=== PATIENT | male | born 1980 | race Caucasian/White ===

== ENCOUNTER → 2023-07-05 | Outpatient (CLI) | payer OTHER ==
--- NOTE | 2023-07-05 15:45 | CT ---
EXAMINATION: CT ABDOMEN AND PELVIS WITH IV CONTRAST DATE OF EXAMINATION: 07/05/2023. COMPARISON: None available. INDICATION: Abdominal pain. PROCEDURE: Axial CT of the abdomen and pelvis was performed with contrast and sagittal and coronal reformatted images were performed. CT dose lowering techniques were used, to include: automated expos ure control, adjustment for patient size, and/or use of iterative reconstruction. 100 mL of Isovue-30 0 was given intravenously. FINDINGS: LOWER CHEST : There are small bilateral pleural effusions, left greater than right. The lung bases o therwise appear clear. There is no pericardial effusion. Mild cardiomegaly. ABDOMEN: Liver and Biliary system: There is diffuse decreased attenuation of the liver which is compatible fa tty liver infiltration. Liver is enlarged measuring 19.1 cm in craniocaudal dimension. No focal liver lesions are otherwise seen. There is a small amount of ascites also noted around the liver. Adrenal glands: Normal. Kidneys and ureters: Normal. Spleen: Normal. Pancreas: There is scattered pancreatic parenchymal calcifications. There is mild to moderate fluid and inflammatory changes seen surrounding the pancreas as well with a more focal fluid collection chloe und the tail of the pancreas and fundal region of the stomach that measures approximately 8.3 x 4.3 c m in diameter. This may represent a pseudocyst. There is an additional cystic lesion within the head of the pancreas which is also favored to represent a pseudocyst measuring up to 2.7 cm in diameter. Gallbladder: Normal. Lymph nodes, Peritoneum and mesentery: There is no mesenteric or retroperitoneal lymphadenopathy. Gastrointestinal tract: There are no dilated loops of bowel or free intraperitoneal air. There is no evidence of appendicitis. Aorta/IVC: No aortic aneurysm. IVC normal. Abdominal wall: Normal. PELVIS: Fluid: There is a small amount of pelvic ascites. Lymph Nodes: There is no pelvic or inguinal lymphadenopathy.. Urinary bladder: Normal. BONES: There are no osseous destructive lesions.. ADDITIONAL SIGNIFICANT FINDINGS: None. IMPRESSION: 1. Acute on chronic pancreatitis with pseudocyst formation. A follow-up in 3 months is recommended. 2. Small amount of abdominal and pelvic ascites. 3. Hepatomegaly with hepatic steatosis. 4. Small bilateral pleural effusions.
== END | disposition home or self-care (01) ==
LOC: RADCTMAIN 13:15
PROVIDERS: ATTEND Internal Medicine Gastroenterology
DX: K86.1 Other chronic pancreatitis (principal); K76.0 Fatty (change of) liver, not elsewhere classified; R16.0 Hepatomegaly, not elsewhere classified; K86.3 Pseudocyst of pancreas; K85.90 Acute pancreatitis without necrosis or infection, unspecified; J90 Pleural effusion, not elsewhere classified; R18.8 Other ascites
CPT/HCPCS: 74177; Q9967

== ENCOUNTER → 2023-08-02 | Outpatient (CLI) | payer OTHER ==
[2023-08-02 09:43] VITALS: BP 123/86; PULSE 95; RESP 16
--- NOTE | 2023-08-02 13:41 | P.PAINPG ---
PQRS Measure Charge Sheet Comment: HISTORY OF PRESENT ILLNESS: A 43 yr old male as a referral from Dr Sunny Gonzáles presents today w severe and chronic abd pain secondary to chronic pancreatitis for evaluation. Pt states pain level is provoked at 8 /10 in intensity, constant, localized in the LUQ, predominantly axial, achy in character w occasional shooting pain towards the back. Pain is provoked by meals, alcohol. Pain is alleviated by injections, medications ([place]) and bowel rest. PMH: OA, Opioid Dependence, Pancreatitis, GERD PSH: Denies SH: 25 pack/ yr tobacco use, Hx of 6 cans of beers daily, Cannabis use FH: Aunt- [place]. Bro- CHF. All: See list Meds: See list REVIEW OF ORGAN SYSTEMS: CONSTITUTIONAL: No fevers or chills. No recent weight loss. NEUROLOGICAL: + numbness and tingling along the distal extremities. No seizure disorders or headaches. MUSCULOSKELETAL: + pain PSYCHIATRIC: Denies current depression or suicidal thoughts. Physical Examinations : Constitutional : Cooperative , not in acute distress . +LUQ TTP Neurologic : Cranial nerve II to XII intact. No focal neurological deficits. Psychiatric : alert & oriented x 3. Matching mood & appropriate affect. Judgment & insight intact. Musculoskeletal : Cervical Spine Motor strength in the deltoid and biceps: Normal right side. Normal Left side Motor strength biceps and the wrist extensors: Normal right side . Normal left side Motor strength in the triceps muscle: Normal right side. Normal left side Deep tendon reflexes: Normal at the biceps. Normal at Brachioradialis. Normal at triceps Vertebral body tenderness to deep palpation over Cervical facet loading test: positive bilaterally Spurling test: positive bilaterally Neck distraction test: positive bilaterally Ivan sign: positive bilaterally Lumbar spine Motor strength lower extremities ,thigh and legs 5/5 Right side , 5/5 Left side Deep tendon reflexes : Normal Knee Jerk. Normal Ankle Jerk Vertebral body tenderness over Small Test positive Lumbar facet Loading Test: positive Right / positive Left Range of motion of the lumbar spine Flexion 30 degrees, extension 10 degrees Straight Leg Raise test: Left/ Right positive at degrees Gabrielle test: positive right / positive left. Severe tenderness over the Sacroiliac joint on the Right / Left sides Gaenslen test: positive bilaterally Seated flexion test: positive bilaterally. Sacral spine : Severe tenderness over the Sacroiliac joint: right side / left side Range of motion: Flexion of the lumbar spine <60 degrees Range of motion: Extension of the lumbar spine <20 degrees Gaenslen's Test positive Gabrielle test: positive right side / left side Thigh Thrust Test Sacral Thrust Test Imaging: CT Abdomen reviewed Assessment/ Plan : Chronic Pancreatitis Recommendation of Celiac Plexus Nerve Block #1. May need a series of injections for optimal pain relief. Risks, benefits of procedure discussed and patient verbalized understanding. Admits to anti- coagulant use or medical history of diabetes. Protocol for discontinuation/ continuation of medications kar procedure discussed. Minimal anesthesia provided, if clinically indicated, consisting of Versed and Fentanyl. All questions answered. I have spent greater than 30 minutes on patient care today. Dr Rushing was available by phone for the evaluation of this patient. The time was used to review the medical records including relevant urine studies and Prescription history (MAPs), review of the available imaging, evaluation and examination of the patient, coordination of care with the medical staff and if applicable re [facility] physicians, as well as creation of the medical record Home Medications: Ambulatory Orders Omeprazole 40 PO DAILY 08/02/23 Controlled Substance Measures - Controlled Substance Measures Is patient prescribed a controlled substance at discharge?: No
== END ==
LOC: PNWHC3 09:17
PROVIDERS: ATTEND Specialist
DX: K85.90 Acute pancreatitis without necrosis or infection, unspecified (principal)
CPT/HCPCS: 99211

== ENCOUNTER 2024-01-09 13:16 | Emergency (ER) | payer OTHER ==
--- NOTE | 2024-01-09 13:52 | ED ---
General Adult HPI - General Chief complaint: Abdominal Pain Stated complaint: Abd pain Time Seen by Provider: 01/09/24 13:29 Source: patient Mode of arrival: wheelchair Limitations: no limitations - History of Present Illness Initial comments: Dictation was produced using [employer] dictation software. please excuse any grammatical, word or spelling errors. Chief Complaint: 43-year-old male with abdominal pain History of Present Illness: Patient is a 43-year-old alcoholic male he tried to check in at [place] today for treatment of alcoholism. Patient states he drinks 12 beers daily. Has had withdrawals in the past. Patient complains of abdominal pain. States that he tried to check in and they told him to come to the emergency department to evaluate for pancreatitis. Patient has chronic abdominal pain. Denies any fever. No nausea or vomiting. The ROS documented in this emergency department record has been reviewed and confirmed by me. Those systems with pertinent positive or negative responses have been documented in the HPI. All other systems are other negative and/or noncontributory. - Related Data Home Medications Medication Instructions Recorded Confirmed Omeprazole 40 mg PO DAILY 08/02/23 01/09/24 Pregabalin [Lyrica] 75 mg PO TID 08/10/23 01/09/24 Allergies Allergy/AdvReac Type Severity Reaction Status Date / Time No Known Allergies Allergy Verified 01/09/24 14:31 Review of Systems ROS Statement: Those systems with pertinent positive or pertinent negative responses have been documented in the HPI. ROS Other: All systems not noted in ROS Statement are negative. Past Medical History Past Medical History: CVA/TIA, GERD/Reflux, Hearing Disorder / Deafness, Hypertension, Musculoskeletal Disorder Additional Past Medical History / Comment(s): TIA - discharged([facility]) 2 days ago had massive headache, confusion, was hard to get words out, resolved now. States needs MRI of brain. "High heart rate recently from the pain". Hiatal hernia. Chronic pancreatitis/pain. 4 slipped discs in back. Sore muscles. Mild hearing loss. History of Any Multi-Drug Resistant Organisms: None Reported Additional Past Surgical History / Comment(s): "Pseudocyst removed from stomach". Past Anesthesia/Blood Transfusion Reactions: No Reported Reaction Past Psychological History: No Psychological Hx Reported Smoking Status: Current every day smoker Past Alcohol Use History: Abuse Past Drug Use History: Marijuana - Past Family History Father Family Medical History: Cancer Additional Family Medical History / Comment(s): Colon cancer. General Exam - General Exam Comments Initial Comments: PHYSICAL EXAM: General Impression: Alert and oriented x3, not in acute distress HEENT: Normocephalic atraumatic, extra-ocular movements intact, pupils equal and reactive to light bilaterally, mucous membranes moist. Cardiovascular: Heart regular rate and rhythm Chest: Able to complete full sentences, no retractions, no tachypnea Abdomen: abdomen soft, epigastric palpatory abdominal pain, non-distended, no organomegaly Musculoskeletal: Pulses present and equal in all extremities, no peripheral edema Motor: no focal deficits noted Neurological: CN II-XII grossly intact, no focal motor or sensory deficits noted Skin: Intact with no visualized rashes Psych: Normal affect and mood Limitations: no limitations Course Vital Signs 01/09/24 13:24 Temperature 98.2 F Pulse Rate 115 H Respiratory 18 Rate Blood Pressure 131/94 O2 Sat by Pulse 99 Oximetry Medical Decision Making - Medical Decision Making Was pt. sent in by a medical professional or institution (, PA, [employer], urgent care, hospital, or prison...) When possible be specific @ -No Did you speak to anyone other than the patient for history (EMS, parent, family, police, friend...)? What history was obtained from this source @ -No Did you review nursing and triage notes (agree or disagree)? Why? @ -I reviewed and agree with nursing and triage notes Were old charts reviewed (outside hosp., previous admission, EMS record, old EKG, old radiological studies, urgent care reports/EKG's, prison records)? Report findings @ -No old charts were reviewed Differential Diagnosis (chest pain, altered mental status, abdominal pain women, abdominal pain men, vaginal bleeding, musculoskeletal, weakness, fever, dyspnea, syncope, headache, dizziness, GI bleed, back pain, seizure, CVA, palpatations, mental health)? @ -Differential Abdominal Pain Men: Appendicitis, cholecystitis, diverticulosis, ischemic bowel, pancreatitis, hepatitis, UTI, gastroenteritis, AAA, incarcerated hernia, bowel obstruction, constipation, inflammatory bowel, hepatitis, peptic ulcer disease, splenic infarction, perforated viscus, testicular torsion, this is not meant to be an all-inclusive list EKG interpreted by me (3pts min.). @ -None done X-rays interpreted by me (1pt min.). @ -None done CT interpreted by me (1pt min.). @ -None done U/S interpreted by me (1pt. min.). @ -None done What testing was considered but not performed or refused? (CT, X-rays, U/S, labs)? Why? @ -None What meds were considered but not given or refused? Why? @ -None Was smoking cessation discussed for >3mins.? @ -No Were there social determinants of health that impacted care today? How? (Homelessness, low income, unemployed, alcoholism, drug addiction, transportation, low edu. Level, literacy, decrease access to med. care, fdc, rehab)? @ -No Was there de-escalation of care discussed even if they declined (Discuss DNR or withdrawal of care, Hospice)? DNR status @ -No What co-morbidities impacted this encounter? (DM, HTN, Smoking, COPD, CAD, Cancer, CVA, ARF, Chemo, Hep., AIDS, mental health diagnosis, sleep apnea, morbid obesity)? @ -Alcoholism, chronic pancreatitis Was patient admitted / discharged? Hospital course, mention meds given and route, prescriptions, significant lab abnormalities, going to OR and other pertinent info. @ -43-year-old male presents emergency department for abdominal pain. Patient has history of chronic pancreatitis. Patient has mild leukocytosis 17.3. Metabolic panel shows sodium 127 likely secondary to beer potomania. Rest of labs within acceptable limits. Serum alcohol is negative. Patient given Toradol and Ativan for withdrawal symptoms. Patient states that he feels significantly improved. Offered hospital admission for inpatient treatment of alcohol withdrawal symptoms. Patient denies severe withdrawal symptoms that require hospital admission or ICU admission. States that he would prefer to be discharged back to [facility]. Repeat abdominal exam at 2:42 PM shows no acute findings. He is resting comfortably no acute distress. Patient feels that the Ativan really helped with his withdrawal symptoms. Did you discuss the management of the patient with other professionals (professionals i.e. , PA, [employer], lab, RT, psych nurse, social services analyst, internist medical doctor md, teacher, commanding officer traffic division, field case manager)? Give summary @ -No Was critical care preformed (if so, how long)? @ -No Undiagnosed new problem with uncertain prognosis? @ -No Drug Therapy requiring intensive monitoring for toxicity (Heparin, Nitro, Insulin, Cardizem)? @ -No Were any procedures done? @ -No Diagnosis/symptom? Acute, or Chronic, or Acute on Chronic? Uncomplicated (without systemic symptoms) or Complicated (systemic symptoms)? @ -Abdominal pain, hyponatremia Side effects of treatment? @ -No Exacerbation, Progression, or Severe Exacerbation? @ -No Poses a threat to life or bodily function? How? (Chest pain, [place], [place], pneumonia, PE, COPD, DKA, ARF, appy, cholecystitis, CVA, Diverticulitis, Homicidal, Suicidal, threat to staff... and all critical care pts) @ -No - Lab Data Result diagrams: 01/09/24 14:11 01/09/24 14:11 Lab Results 01/09/24 01/09/24 Range/Units 14:11 14:11 WBC 17.3 H (3.8-10.6) k/uL RBC 4.07 L (4.30-5.90) m/uL Hgb 12.4 L (13.0-17.5) gm/dL Hct 39.7 (39.0-53.0) % MCV 97.5 (80.0-100.0) fL MCH 30.5 (25.0-35.0) pg MCHC 31.3 (31.0-37.0) g/dL RDW 16.1 H (11.5-15.5) % Plt Count 581 H (150-450) k/uL MPV 8.0 Neutrophils % 79 % Lymphocytes % 12 % Monocytes % 7 % Eosinophils % 2 % Basophils % 0 % Neutrophils # 13.6 H (1.3-7.7) k/uL Lymphocytes # 2.0 (1.0-4.8) k/uL Monocytes # 1.2 H (0-1.0) k/uL Eosinophils # 0.3 (0-0.7) k/uL Basophils # 0.0 (0-0.2) k/uL Anisocytosis Slight Macrocytosis Slight Sodium 127 L (137-145) mmol/L Potassium 3.5 (3.5-5.1) mmol/L Chloride 94 L (98-107) mmol/L Carbon Dioxide 26 (22-30) mmol/L Anion Gap 7 mmol/L BUN <2 L (9-20) mg/dL Creatinine 0.37 L (0.66-1.25) mg/dL Est GFR (CKD-EPI)AfAm >90 (>60 ml/min/1.73 sqM) Est GFR (CKD-EPI)NonAf >90 (>60 ml/min/1.73 sqM) Glucose 90 (74-99) mg/dL Calcium 6.9 L (8.4-10.2) mg/dL Total Bilirubin 0.5 (0.2-1.3) mg/dL AST 46 (17-59) U/L ALT 27 (4-49) U/L Alkaline Phosphatase 206 H (38-126) U/L Total Protein 6.0 L (6.3-8.2) g/dL Albumin 2.9 L (3.5-5.0) g/dL Lipase 520 H (23-300) U/L Serum Alcohol <10 mg/dL Disposition Clinical Impression: Abdominal pain Disposition: HOME SELF-CARE Condition: Good Instructions (If sedation given, give patient instructions): Abdominal Pain (ED) Is patient prescribed a controlled substance at d/c from ED?: No Referrals: Sunny Gonzáles MD [Primary Care Provider] - 1-2 days Time of Disposition: 14:44
[2024-01-09] MEDS: LORazepam 2 MG/ML INJ IV STA (14:06)
[2024-01-09] MEDS: KETOROLAC 15 MG/ML 1 ML VIAL IVP STA (14:06)
[2024-01-09 14:19] LABS: Anisocytosis Slight; Basophils % (A) 0 %; Eosinophils # (A) 0.3 k/uL (0-0.7); Eosinophils % (A) 2 %; HCT 39.7 % (39.0-53.0); HGB 12.4 gm/dL (13.0-17.5); Lymphocytes % (A) 12 %; MCH 30.5 pg (25.0-35.0); MCHC 31.3 g/dL (31.0-37.0); MCV 97.5 fL (80.0-100.0); Macrocytosis Slight; Monocytes # (A) 1.2 k/uL (0-1.0); Monocytes % (A) 7 %; Neutrophils # (A) 13.6 k/uL (1.3-7.7); Neutrophils % (A) 79 %; Platelet Count 581 k/uL (150-450); RBC 4.07 m/uL (4.30-5.90); RDW 16.1 % (11.5-15.5); WBC 17.3 k/uL (3.8-10.6)
[2024-01-09 14:35] LABS: ALT 27 U/L (4-49); AST 46 U/L (17-59); African American GFR (CKD) >90 (>60 ml/min/1.73 sqM); Albumin 2.9 g/dL (3.5-5.0); Alcohol <10 mg/dL; Alkaline Phosphatase 206 U/L (38-126); Anion Gap 7 mmol/L; Blood Urea Nitrogen <2 mg/dL (9-20); Calcium 6.9 mg/dL (8.4-10.2); Carbon Dioxide 26 mmol/L (22-30); Chloride 94 mmol/L (98-107); Glucose 90 mg/dL (74-99); Lipase 520 U/L (23-300); Non-African American GFR(CKD) >90 (>60 ml/min/1.73 sqM); Potassium 3.5 mmol/L (3.5-5.1); Sodium 127 mmol/L (137-145); Total Bilirubin 0.5 mg/dL (0.2-1.3)
[2024-01-09] MEDS: SODIUM CHLORIDE 0.9% 1,000 ML IV STA (15:07)
[2024-01-09 16:05] VITALS: BP 148/92; PULSE 95; RESP 16; TEMP 98.1
== END 2024-01-09 16:25 | disposition home or self-care (01) ==
LOC: EC 13:16
DX: R10.9 Unspecified abdominal pain (principal); F17.200 Nicotine dependence, unspecified, uncomplicated; F10.20 Alcohol dependence, uncomplicated; E87.1 Hypo-osmolality and hyponatremia; Z87.19 Personal history of other diseases of the digestive system; Y90.0 Blood alcohol level of less than 20 mg/100 ml
CPT/HCPCS: 99284 ×2; 96374 ×2; 96375 ×2; 96361 ×2; 36415; 80053; 83690; 85025; G0480; J2060; J1885; 80320

== ENCOUNTER 2024-01-15 08:45 | Observation (INO) | payer OTHER ==
[2024-01-15] MEDS: SODIUM CHLORIDE 0.9% 1,000 ML IV STA (09:47)
[2024-01-15] MEDS: ONDANSETRON 4 MG/2 ML VIAL IVP STA (09:47)
[2024-01-15] MEDS: HYDROmorphone 1 MG/ML 1 ML SYRINGE IVP STA ×2 (09:50→13:48)
[2024-01-15 09:54] LABS: Anisocytosis Slight; Basophils % (A) 0 %; Eosinophils # (A) 0.2 k/uL (0-0.7); Eosinophils % (A) 2 %; HGB 12.2 gm/dL (13.0-17.5); Hypochromasia Slight; Lymphocytes # (A) 1.3 k/uL (1.0-4.8); Lymphocytes % (A) 13 %; MCH 29.9 pg (25.0-35.0); MCHC 29.8 g/dL (31.0-37.0); MCV 100.3 fL (80.0-100.0); Macrocytosis Slight; Mean Platelet Volume 6.9; Monocytes # (A) 0.7 k/uL (0-1.0); Monocytes % (A) 7 %; Neutrophils # (A) 7.9 k/uL (1.3-7.7); Neutrophils % (A) 77 %; Platelet Count 755 k/uL (150-450); RBC 4.09 m/uL (4.30-5.90); RDW 16.1 % (11.5-15.5); WBC 10.2 k/uL (3.8-10.6)
[2024-01-15] MEDS: PANTOPRAZOLE 40 MG/10 ML VIAL IVP STA (09:55)
[2024-01-15 10:05] LABS: Partial Thromboplastin Time 26.2 sec (22.0-30.0); Prothrombin Time 10.9 sec (10.0-12.5)
--- NOTE | 2024-01-15 10:06 | ED ---
General Adult HPI - General Chief complaint: Abdominal Pain Stated complaint: acute pain Time Seen by Provider: 01/15/24 09:00 Source: patient, RN notes reviewed, old records reviewed Mode of arrival: ambulatory Limitations: no limitations - History of Present Illness Initial comments: Patient is a 43-year-old male who presents emergency department complaining of abdominal pain. Left [place] this morning. Last beverage was over 7 days ago. Was there for last week for alcohol abuse. Has a history of chronic pancreatitis and has been dealing with abdominal pain for the last day or so. Pain is in the epigastric region. Pretty typical for his abdominal pain. Has some intermittent nausea but no emesis. Denies diarrhea. Denies any constipation. Denies any chest pain or shortness of breath. No other acute complaints at this time. Presents for further evaluation at this time. Patient was here late last month with similar complaints. Workup at that time unremarkable. Mild pancreatitis at that time. - Related Data Home Medications Medication Instructions Recorded Confirmed Omeprazole 40 mg PO DAILY 08/02/23 01/15/24 Pregabalin [Lyrica] 75 mg PO TID 08/10/23 01/15/24 Allergies Allergy/AdvReac Type Severity Reaction Status Date / Time No Known Allergies Allergy Verified 01/15/24 12:46 Review of Systems ROS Statement: Those systems with pertinent positive or pertinent negative responses have been documented in the HPI. Review of Systems: CONST: Denies fever EYES: Denies blurry vision ENT: Denies nasal congestion C/V: Denies Chest pain RESP: Denies shortness of breath GI: Endorses abdominal pain : Denies dysuria SKIN: Denies rash. MSK: Denies joint pain. NEURO: Denies headache ROS Other: All systems not noted in ROS Statement are negative. Past Medical History Past Medical History: CVA/TIA, GERD/Reflux, Hearing Disorder / Deafness, Hypertension, Musculoskeletal Disorder Additional Past Medical History / Comment(s): TIA - discharged([facility]) 2 days ago had massive headache, confusion, was hard to get words out, resolved now. States needs MRI of brain. "High heart rate recently from the pain". Hiatal hernia. Chronic pancreatitis/pain. 4 slipped discs in back. Sore muscles. Mild hearing loss. History of Any Multi-Drug Resistant Organisms: None Reported Additional Past Surgical History / Comment(s): "Pseudocyst removed from stomach". Past Anesthesia/Blood Transfusion Reactions: No Reported Reaction Past Psychological History: No Psychological Hx Reported Smoking Status: Current every day smoker Past Alcohol Use History: Abuse Past Drug Use History: Marijuana - Past Family History Father Family Medical History: Cancer Additional Family Medical History / Comment(s): Colon cancer. General Exam - General Exam Comments Initial Comments: General: Appears in mild distress. HEAD: Normal with no signs of head trauma. EYES: PERRLA, EOMI, conjunctiva normal, no discharge. ENT: Hearing grossly intact, normal oropharynx. RESPIRATORY: Clear breath sounds bilaterally. No wheezes, rales, or rhonchi. C/V: Regular rate and rhythm. S1 and S2 auscultated, no edema, peripheral pulses 2+ and intact throughout ABD: Abdomen is soft, nondistended. Tender to palpation epigastric region. No guarding. No rebound tenderness. No peritoneal signs. EXT: Normal range of motion, no obvious deformity SKIN: No rashes or lesions observed on exposed skin. NEURO: Alert and oriented x 4. Limitations: no limitations Course Vital Signs 01/15/24 01/15/24 01/15/24 08:53 09:52 11:50 Temperature 98.3 F Pulse Rate 105 H 86 76 Respiratory 20 20 20 Rate Blood Pressure 141/97 160/103 170/106 O2 Sat by Pulse 99 100 99 Oximetry 01/15/24 13:40 Temperature Pulse Rate 72 Respiratory 18 Rate Blood Pressure 155/108 O2 Sat by Pulse 98 Oximetry Medical Decision Making - Medical Decision Making Was pt. sent in by a medical professional or institution (, PA, PROGRAM ARCHITECT, urgent care, hospital, or alf...) When possible be specific @ -No Did you speak to anyone other than the patient for history (EMS, parent, family, police, friend...)? What history was obtained from this source @ -No Did you review nursing and triage notes (agree or disagree)? Why? @ -I reviewed and agree with nursing and triage notes Were old charts reviewed (outside hosp., previous admission, EMS record, old EKG, old radiological studies, urgent care reports/EKG's, alf records)? Report findings @ -Reviewed CT from June 2023 which is most recent in our system which revealed chronic pancreatitis with pseudocyst formation. Differential Diagnosis (chest pain, altered mental status, abdominal pain women, abdominal pain men, vaginal bleeding, weakness, fever, dyspnea, syncope, headache, dizziness, GI bleed, back pain, seizure, CVA, palpatations, mental health, musculoskeletal)? @ -Differential Abdominal Pain Men: Appendicitis, cholecystitis, diverticulosis, ischemic bowel, pancreatitis, hepatitis, UTI, gastroenteritis, AAA, incarcerated hernia, bowel obstruction, constipation, inflammatory bowel, hepatitis, peptic ulcer disease, splenic infarction, perforated viscus, testicular torsion, this is not meant to be an all-inclusive list EKG interpreted by me (3pts min.). @ -As above X-rays interpreted by me (1pt min.). @ -None done CT interpreted by me (1pt min.). @ -CT reveals acute on chronic pancreatitis with pancreatic pseudocyst U/S interpreted by me (1pt. min.). @ -None done What testing was considered but not performed or refused? (CT, X-rays, U/S, labs)? Why? @ -None What meds were considered but not given or refused? Why? @ -None Did you discuss the management of the patient with other professionals (professionals i.e. , PA, PROGRAM ARCHITECT, lab, RT, psych nurse, social services technician, tooling specialist, teacher, community reinvestment act officer, heel caser)? Give summary @ -I spoke with the admitting team, Dr. Dodd of [facility] who accepted the admission. Requested consult to on-call surgery Dr. Ocampo. Was smoking cessation discussed for >3mins.? @ -No Was critical care preformed (if so, how long)? @ -No Were there social determinants of health that impacted care today? How? (Homelessness, low income, unemployed, alcoholism, drug addiction, transportatio n, low edu. Level, literacy, decrease access to med. care, group home, rehab)? @ -No Was there de-escalation of care discussed even if they declined (Discuss DNR or withdrawal of care, Hospice)? DNR status @ -No What co-morbidities impacted this encounter? (DM, HTN, Smoking, COPD, CAD, Cancer, CVA, ARF, Chemo, Hep., AIDS, mental health diagnosis, sleep apnea, morbid obesity)? @ -Pancreatitis Was patient admitted / discharged? Hospital course, mention meds given and route, prescriptions, significant lab abnormalities, going to OR and other pertinent info. @ -Based on the patient's presentation and physical exam, patient presents emergency department complaining of acute on chronic abdominal pain. Has a history of chronic pancreatitis. Last drink of alcohol was over 7 days ago as he presents from [employer] which is when he checked into [facility] was 7 days ago. Has some mild nausea but no emesis. No other complaints at this time. Presents for further evaluation. Will obtain abdominal workup. Vital signs within acceptable limits. He will be symptomatically treated with IV fl uids, Zofran, Dilaudid, Protonix. Patient was in agreement this plan. EKG shows no signs of acute ischemia.CT reveals acute on chronic pancreatitis with pancreatic pseudocyst. Labs remarkable for elevated amylase and lipase. Remainder the workup unremarkable. On reevaluation, patient is still in pain. I did administer additional analgesia medications. Recommended admission at this time for monitoring. He was in agreement this plan. I spoke with the admitting team, Dr. Dodd of [facility] who accepted the admission. Requested consult to on-call surgery Dr. Ocampo. Undiagnosed new problem with uncertain prognosis? @ -No Drug Therapy requiring intensive monitoring for toxicity (Heparin, Nitro, Insulin, Cardizem)? @ -No Were any procedures done? @ -No Diagnosis/symptom? @ -Pancreatitis with cysts Acute, or Chronic, or Acute on Chronic? @ -Acute on chronic Uncomplicated (without systemic symptoms) or Complicated (systemic symptoms)? @ -Complicated Side effects of treatment? @ -[none] Exacerbation, Progression, or Severe Exacerbation] @ -[no] Poses a threat to life or bodily function? @ -Yes - Lab Data Result diagrams: 01/15/24 09:42 01/15/24 09:42 Lab Results 01/15/24 01/15/24 01/15/24 Range/Units 09:42 09:42 09:42 WBC 10.2 (3.8-10.6) k/uL RBC 4.09 L (4.30-5.90) m/uL Hgb 12.2 L (13.0-17.5) gm/dL Hct 41.0 (39.0-53.0) % MCV 100.3 H (80.0-100.0) fL MCH 29.9 (25.0-35.0) pg MCHC 29.8 L (31.0-37.0) g/dL RDW 16.1 H (11.5-15.5) % Plt Count 755 H (150-450) k/uL MPV 6.9 Neutrophils % 77 % Lymphocytes % 13 % Monocytes % 7 % Eosinophils % 2 % Basophils % 0 % Neutrophils # 7.9 H (1.3-7.7) k/uL Lymphocytes # 1.3 (1.0-4.8) k/uL Monocytes # 0.7 (0-1.0) k/uL Eosinophils # 0.2 (0-0.7) k/uL Basophils # 0.0 (0-0.2) k/uL Hypochromasia Slight Anisocytosis Slight Macrocytosis Slight PT 10.9 (10.0-12.5) sec INR 1.0 (<1.2) APTT 26.2 (22.0-30.0) sec Sodium (137-145) mmol/L Potassium (3.5-5.1) mmol/L Chloride (98-107) mmol/L Carbon Dioxide (22-30) mmol/L Anion Gap mmol/L BUN (9-20) mg/dL Creatinine (0.66-1.25) mg/dL Est GFR (CKD-EPI)AfAm (>60 ml/min/1.73 sqM) Est GFR (CKD-EPI)NonAf (>60 ml/min/1.73 sqM) Glucose (74-99) mg/dL Plasma Lactic Acid Sina (0.7-2.0) mmol/L Calcium (8.4-10.2) mg/dL Total Bilirubin (0.2-1.3) mg/dL AST (17-59) U/L ALT (4-49) U/L Alkaline Phosphatase (38-126) U/L Total Protein (6.3-8.2) g/dL Albumin (3.5-5.0) g/dL Amylase (30-110) U/L Lipase (23-300) U/L Urine Color Yellow Urine Appearance Clear (Clear) Urine pH 6.5 (5.0-8.0) Ur Specific [place] 1.013 (1.001-1.035) Urine Protein Negative (Negative) Urine Glucose (UA) Negative (Negative) Urine Ketones Negative (Negative) Urine Blood Negative (Negative) Urine Nitrite Negative (Negative) Urine Bilirubin Negative (Negative) Urine Urobilinogen <2.0 (<2.0) mg/dL Ur Leukocyte Esterase Negative (Negative) 01/15/24 01/15/24 Range/Units 09:42 09:42 WBC (3.8-10.6) k/uL RBC (4.30-5.90) m/uL Hgb (13.0-17.5) gm/dL Hct (39.0-53.0) % MCV (80.0-100.0) fL MCH (25.0-35.0) pg MCHC (31.0-37.0) g/dL RDW (11.5-15.5) % Plt Count (150-450) k/uL MPV Neutrophils % % Lymphocytes % % Monocytes % % Eosinophils % % Basophils % % Neutrophils # (1.3-7.7) k/uL Lymphocytes # (1.0-4.8) k/uL Monocytes # (0-1.0) k/uL Eosinophils # (0-0.7) k/uL Basophils # (0-0.2) k/uL Hypochromasia Anisocytosis Macrocytosis PT (10.0-12.5) sec INR (<1.2) APTT (22.0-30.0) sec Sodium 137 (137-145) mmol/L Potassium 3.7 (3.5-5.1) mmol/L Chloride 107 (98-107) mmol/L Carbon Dioxide 26 (22-30) mmol/L Anion Gap 4 mmol/L BUN 4 L (9-20) mg/dL Creatinine 0.37 L (0.66-1.25) mg/dL Est GFR (CKD-EPI)AfAm >90 (>60 ml/min/1.73 sqM) Est GFR (CKD-EPI)NonAf >90 (>60 ml/min/1.73 sqM) Glucose 90 (74-99) mg/dL Plasma Lactic Acid Sina 0.8 (0.7-2.0) mmol/L Calcium 8.6 (8.4-10.2) mg/dL Total Bilirubin 0.4 (0.2-1.3) mg/dL AST 27 (17-59) U/L ALT 16 (4-49) U/L Alkaline Phosphatase 160 H (38-126) U/L Total Protein 6.0 L (6.3-8.2) g/dL Albumin 3.1 L (3.5-5.0) g/dL Amylase 294 H (30-110) U/L Lipase 1361 H (23-300) U/L Urine Color Urine Appearance (Clear) Urine pH (5.0-8.0) Ur Specific [place] (1.001-1.035) Urine Protein (Negative) Urine Glucose (UA) (Negative) Urine Ketones (Negative) Urine Blood (Negative) Urine Nitrite (Negative) Urine Bilirubin (Negative) Urine Urobilinogen (<2.0) mg/dL Ur Leukocyte Esterase (Negative) - EKG Data -: EKG Interpreted by Me EKG Comments: 12-lead Electrocardiogram Interpretation Note EKG was reviewed and interpreted by myself. 12-lead ECG performed at 0926 is interpreted by me as revealing normal sinus rhythm at a rate of 90 beats per minute. [place] is normal. SD interval is 160 ms, QRS duration is 94 ms, QTc is 438 ms.. There were no ST or T wave abnormalities to suggest myocardial ischemia or injury. R wave progression across the precordium was satisfactory. By my interpretation this EKG is non-diagnostic for acute ischemia. Isolated T wave inversion. No prior EKG for comparison. Disposition Clinical Impression: Pancreatitis, Pancreas cyst Disposition: ADMITTED IP TO THIS [facility] Condition: Stable Time of Disposition: 12:35
[2024-01-15 10:09] LABS: ALT 16 U/L (4-49); AST 27 U/L (17-59); African American GFR (CKD) >90 (>60 ml/min/1.73 sqM); Albumin 3.1 g/dL (3.5-5.0); Alkaline Phosphatase 160 U/L (38-126); Amylase 294 U/L (30-110); Anion Gap 4 mmol/L; Blood Urea Nitrogen 4 mg/dL (9-20); Calcium 8.6 mg/dL (8.4-10.2); Carbon Dioxide 26 mmol/L (22-30); Chloride 107 mmol/L (98-107); Glucose 90 mg/dL (74-99); Lipase 1361 U/L (23-300); Non-African American GFR(CKD) >90 (>60 ml/min/1.73 sqM); Potassium 3.7 mmol/L (3.5-5.1); Sodium 137 mmol/L (137-145); Total Bilirubin 0.4 mg/dL (0.2-1.3)
[2024-01-15 10:42] LABS: Appearance,Urine Clear (Clear); Bilirubin,Urine Negative (Negative); Blood,Urine Negative (Negative); Color,Urine Yellow; Glucose,Urine (UA) Negative (Negative); Ketones,Urine Negative (Negative); Leukocyte Esterase,Urine Negative (Negative); Nitrite,Urine Negative (Negative); PH, Urine 6.5 (5.0-8.0); Protein,Urine Negative (Negative); Specific Gravity,Urine 1.013 (1.001-1.035); Urobilinogen,Urine <2.0 mg/dL (<2.0)
--- NOTE | 2024-01-15 11:53 | CT ---
EXAMINATION TYPE: CT abdomen pelvis w con CT DLP: 478.5 mGycm, Automated exposure control for dose reduction was used. DATE OF EXAM: 01/15/2024 11:27 AM COMPARISON: CT abdomen pelvis 07/05/2023. CLINICAL INDICATION:Male, 43 years old with history of abdominal pain. Epigastric; Epigastric abdomin al pain TECHNIQUE: Standard CT of the abdomen and pelvis following the administration of 100 cc of Isovue 3 00 IV contrast material. Coronal and sagittal reformats were performed. FINDINGS: LOWER CHEST: Unremarkable ABDOMEN LIVER: Diffusely hypoattenuating parenchyma. No focal liver lesions. GALLBLADDER AND BILE DUCTS: Unremarkable. PANCREAS: Edematous appearance of the pancreas. Multiple calcifications identified throughout the gonzalez creas. No overt pancreatic duct dilatation there is surrounding peripancreatic fluid and edema. There is an organized fluid collection identified just inferior to the mid body of the stomach measuring 2 .6 x 1.9 cm near the pancreatic tail (series 201, image 21). Additional organized pancreatic fluid co llection identified abutting the anterior pancreatic head measuring up to 1.6 cm (series 201, image 2 4). Additional organized pancreatic fluid collection identified in the uncinate process measuring 1.3 cm (series 201, image 29). No internal gas identified within these collections. No evidence for pseu doaneurysm or thrombosis. SPLEEN: Unremarkable. ADRENAL GLANDS: Unremarkable. KIDNEYS AND URETERS: No evidence of hydronephrosis or renal calculus. The kidneys enhance symmetrical ly. Contrast is demonstrated within both collecting systems on the delayed phase. PELVIS BLADDER: Unremarkable REPRODUCTIVE: Unremarkable. ABDOMEN & PELVIS STOMACH AND BOWEL: Diffuse gastric wall thickening with surrounding inflammatory changes. The remaini ng bowel appears unremarkable. No evidence of bowel obstruction. PERITONEUM: No evidence of pneumoperitoneum. Trace free fluid in the abdomen and pelvis. VASCULATURE: No evidence of aortic aneurysm. Portal venous system appears patent. Perigastric collate ral vessels identified. MUSCULOSKELETAL: No acute osseous abnormalities LYMPH NODES: No gross evidence for lymphadenopathy. SOFT TISSUE/ABDOMINAL WALL: Unremarkable IMPRESSION: 1. Acute and chronic pancreatitis with 3 surrounding acute pancreatic fluid collections. Largest inf erior to the stomach measures up to 2.6 cm. 2. Small amount of abdominal and pelvic ascites with abdominal pelvic collateral vessels. 3. Diffuse gastric wall thickening suggesting gastritis likely reactive to #1. 4. Hepatic steatosis.
[2024-01-15] MEDS ORDERED: ONDANSETRON 4 MG/2 ML VIAL IVP PRN (12:42)
[2024-01-15] MEDS ORDERED: MORPHINE SULFATE 4 MG/ML SYRINGE IV PRN (12:42)
[2024-01-15] MEDS ORDERED: NALOXONE 0.4 MG/ML 1 ML VIAL IV PRN (12:42)
[2024-01-15] MEDS: SODIUM CHLORIDE 0.9% 1,000 ML IV SCH (13:48)
--- NOTE | 2024-01-15 14:02 | P.GSCN ---
History of Present Illness Consult date: 01/15/24 History of present illness: CHIEF COMPLAINT: Abdominal pain HISTORY OF PRESENT ILLNESS: This is a 43-year-old male with a known history of alcohol abuse, pancreatitis and pancreatic cyst. Patient left to [place] this morning and was there for alcohol abuse. Patient reports his last alcoholic beverage was 7 days ago. Patient presents with epigastric pain with nausea and no vomiting. Pain started at 1 AM this morning. Patient reports having a history of pancreatic cyst that required to be drained at [facility] about a year ago. Denies any other abdominal surgeries. CT scan had reported acute on chronic pancreatitis and 3 areas of fluid collection surrounding the pancreas. Patient denies any fever chills or sweats. PAST MEDICAL HISTORY: Chronic pancreatitis, pancreatic pseudocyst, hiatal hernia, TIA, GERD/Reflux, Hearing Disorder / Deafness, Hypertension, Musculoskeletal Disorder PAST SURGICAL HISTORY: Drainage of pancreatic cyst MEDICATIONS: See below ALLERGIES: See below SOCIAL HISTORY: No illicit drug use. REVIEW OF SYSTEMS: CONSTITUTIONAL: Denies fever or chills. HEENT: Denies blurred vision, vision changes, or eye pain. Denies hemoptysis CARDIOVASCULAR: Denies chest pain or pressure. RESPIRATORY: No shortness of breath. GASTROINTESTINAL: See HPI for pertinent findings HEMATOLOGIC: Denies bleeding disorders. GENITOURINARY: Denies any blood in urine or increased urinary frequency. SKIN: Denies pruitis. Denies rash. PHYSICAL EXAM: VITAL SIGNS: Reviewed GENERAL: Well-developed in no acute distress. HEENT: No sclera icterus. Extraocular movements grossly intact. Moist buccal mucosa. Head is atraumatic, normocephalic. No nasal drainage. ABDOMEN: Soft. Nondistended. Epigastric tenderness NEUROLOGIC: Alert and oriented. Cranial nerves II through XII grossly intact. LABORATORY DATA: WBC 10.2 Hgb 12.2 platelets 755 INR 1.0 Sodium 137 potassium 3.7 creatinine 0.37 Lipase 1361 amylase 294 alk phos 160 LFTs and bilirubin normal Urinalysis negative IMAGING: CT scan abdomen pelvis reports acute on chronic pancreatitis with 3 surrounding acute pancreatic fluid collections. Largest inferior to the stomach measuring up to 2.6 cm. Small amount of abdominal and pelvic ascites with abdominal pel alan collateral vessels. Diffuse gastric wall thickening suggesting gastritis. Hepatic steatosis. ASSESSMENT: 1. Acute on chronic pancreatitis 2. 3 surrounding acute pancreatic fluid collections 3. History of pancreatic cyst requiring drainage 4. History of alcohol abuse PLAN: -Consult interventional radiology for possible drainage of fluid collections around the pancreas -Keep patient n.p.o. -Continue IV fluids -Continue pain management -Continue PPI -Continue antiemetics Physician Line Up Worker note has been reviewed by physician. Signing provider agrees with the documented findings, assessment, and plan of care. Past Medical History Past Medical History: CVA/TIA, GERD/Reflux, Hearing Disorder / Deafness, Hypertension, Musculoskeletal Disorder Additional Past Medical History / Comment(s): TIA - discharged(AMA) 2 days ago had massive headache, confusion, was hard to get words out, resolved now. States needs MRI of brain. "High heart rate recently from the pain". Hiatal hernia. Chronic pancreatitis/pain. 4 slipped discs in back. Sore muscles. Mild hearing loss. History of Any Multi-Drug Resistant Organisms: None Reported Additional Past Surgical History / Comment(s): "Pseudocyst removed from stomach". Past Anesthesia/Blood Transfusion Reactions: No Reported Reaction Past Psychological History: No Psychological Hx Reported Smoking Status: Current every day smoker Past Alcohol Use History: Abuse Past Drug Use History: Marijuana - Past Family History Father Family Medical History: Cancer Additional Family Medical History / Comment(s): Colon cancer. Medications and Allergies Home Medications Medication Instructions Recorded Confirmed Type Omeprazole 40 mg PO DAILY 08/02/23 01/15/24 History Pregabalin [Lyrica] 75 mg PO TID 08/10/23 01/15/24 History Allergies Allergy/AdvReac Type Severity Reaction Status Date / Time No Known Allergies Allergy Verified 01/15/24 12:46 Surgical - Exam Vital Signs Temp Pulse Resp BP Pulse Ox 98.3 F 105 H 20 141/97 99 01/15/24 08:53 01/15/24 08:53 01/15/24 08:53 01/15/24 08:53 01/15/24 08:53 Results - Labs 01/15/24 09:42 01/15/24 09:42 Abnormal Lab Results - Last 24 Hours (Table) 01/15/24 01/15/24 Range/Units 09:42 09:42 RBC 4.09 L (4.30-5.90) m/uL Hgb 12.2 L (13.0-17.5) gm/dL MCV 100.3 H (80.0-100.0) fL MCHC 29.8 L (31.0-37.0) g/dL RDW 16.1 H (11.5-15.5) % Plt Count 755 H (150-450) k/uL Neutrophils # 7.9 H (1.3-7.7) k/uL BUN 4 L (9-20) mg/dL Creatinine 0.37 L (0.66-1.25) mg/dL Alkaline Phosphatase 160 H (38-126) U/L Total Protein 6.0 L (6.3-8.2) g/dL Albumin 3.1 L (3.5-5.0) g/dL Amylase 294 H (30-110) U/L Lipase 1361 H (23-300) U/L Diabetes panel 01/15/24 Range/Units 09:42 Sodium 137 (137-145) mmol/L Potassium 3.7 (3.5-5.1) mmol/L Chloride 107 (98-107) mmol/L Carbon Dioxide 26 (22-30) mmol/L BUN 4 L (9-20) mg/dL Creatinine 0.37 L (0.66-1.25) mg/dL Glucose 90 (74-99) mg/dL Calcium 8.6 (8.4-10.2) mg/dL AST 27 (17-59) U/L ALT 16 (4-49) U/L Alkaline Phosphatase 160 H (38-126) U/L Total Protein 6.0 L (6.3-8.2) g/dL Albumin 3.1 L (3.5-5.0) g/dL Calcium panel 01/15/24 Range/Units 09:42 Calcium 8.6 (8.4-10.2) mg/dL Albumin 3.1 L (3.5-5.0) g/dL Pituitary panel 01/15/24 Range/Units 09:42 Sodium 137 (137-145) mmol/L Potassium 3.7 (3.5-5.1) mmol/L Chloride 107 (98-107) mmol/L Carbon Dioxide 26 (22-30) mmol/L BUN 4 L (9-20) mg/dL Creatinine 0.37 L (0.66-1.25) mg/dL Glucose 90 (74-99) mg/dL Calcium 8.6 (8.4-10.2) mg/dL Adrenal panel 01/15/24 Range/Units 09:42 Sodium 137 (137-145) mmol/L Potassium 3.7 (3.5-5.1) mmol/L Chloride 107 (98-107) mmol/L Carbon Dioxide 26 (22-30) mmol/L BUN 4 L (9-20) mg/dL Creatinine 0.37 L (0.66-1.25) mg/dL Glucose 90 (74-99) mg/dL Calcium 8.6 (8.4-10.2) mg/dL Total Bilirubin 0.4 (0.2-1.3) mg/dL AST 27 (17-59) U/L ALT 16 (4-49) U/L Alkaline Phosphatase 160 H (38-126) U/L Total Protein 6.0 L (6.3-8.2) g/dL Albumin 3.1 L (3.5-5.0) g/dL
[2024-01-15] MEDS ORDERED: cloNIDine HCL 0.1 MG TAB PO PRN (14:12)
[2024-01-15] MEDS ORDERED: LORazepam 0.5 MG TAB PO PRN (14:13)
[2024-01-15] MEDS ORDERED: LORazepam 1 MG TAB PO PRN ×3 (14:13)
[2024-01-15] MEDS ORDERED: LORazepam 2 MG/ML INJ IV PRN ×2 (14:13)
[2024-01-15] MEDS ORDERED: HYDROcodone/APAP 5-325MG 1 EACH TAB PO PRN (14:14)
[2024-01-15] MEDS: cloNIDine HCL 0.1 MG TAB PO SCH (14:35)
[2024-01-15] MEDS: NICOTINE 14MG/24HR PATCH TRANSDERM SCH (14:36)
--- NOTE | 2024-01-15 15:23 | US ---
EXAMINATION TYPE: US gallbladder DATE OF EXAM: 01/15/2024 COMPARISON: CT same day CLINICAL INDICATION: Male, 43 years old with history of abdominal pain, pancreatitis; pancreatitis HX of cysts alcohol use. TECHNIQUE: Multiple sonographic images of the right upper quadrant are obtained. FINDINGS: EXAM MEASUREMENTS: Liver Length: 14.9 cm Gallbladder Wall: .3 cm CBD: .7 cm Right Kidney: 10.6 x 4.3 x 4.6 cm Pancreas: Tail obscured by overlying bowel gas. Anechoic area seen 1.3 cm at or anterior to the panc reatic head Liver: wnl Gallbladder: No stones seen. No hydropic change or wall thickening. Evidence for sonographic Zurita's sign: No CBD: Borderline to mildly dilated. Right Kidney: No hydronephrosis or masses seen IMPRESSION: 1. A 1.3 cm peripancreatic fluid collection anterior to the pancreatic head corresponding to findings on CT. The extensive inflammation seen on CT is not well depicted by ultrasound. 2. No gallstones. 3. Bile duct borderline to mildly dilated at 7 mm.
[2024-01-15] MEDS: PREGABALIN 75 MG CAP PO SCH (15:26)
[2024-01-15] MEDS: HYDROmorphone 0.5 MG/0.5 ML SYRINGE IVP PRN (18:45)
[2024-01-15] MEDS: HEPARIN SODIUM,PORCINE 5,000 UNIT/ML 1 ML VIAL SQ SCH (21:18)
[2024-01-15] MEDS: PANTOPRAZOLE 40 MG/10 ML VIAL IVP SCH (21:22)
--- NOTE | 2024-01-15 21:52 | HP ---
HISTORY AND PHYSICAL CHIEF COMPLAINT: Abdominal pain. HISTORY OF PRESENT ILLNESS: This is a 43-year-old gentleman with a past medical history of EtOH, who has left [facility] today. The patient drank alcohol about a week ago. The patient had history of chronic pancreatitis, complaining of severe pain in the upper abdomen and left hypochondrium. The patient's amylase and lipase are elevated. CT scan showed acute on chronic pancreatitis and small amount of abdominopelvic ascites and diffuse gastric thickening also. There is no history of any fever, rigors, or chills. PAST MEDICAL HISTORY: Reviewed include CVA, GERD, hypertension, history of EtOH. HOME MEDICATIONS: 1. Lyrica. 2. Omeprazole. ALLERGIES: None. FAMILY HISTORY: History of colon cancer. SOCIAL HISTORY: History of alcohol, smoking, THC. REVIEW OF SYSTEMS: A 14-point review of systems is negative except as mentioned earlier. PHYSICAL EXAMINATION: VITAL SIGNS: Pulse 72, blood pressure 150/108, respirations 18 HEENT: Conjunctivae normal. NECK: No JVD. CARDIOVASCULAR: S1, S2. RESPIRATIONS: Breath sounds diminished at the bases. A few scattered rhonchi. ABDOMEN: Soft, significant tenderness in the upper abdomen. No guarding. No rigidity. No mass palpable. LEGS: No edema. NERVOUS SYSTEM: Nonfocal. SKIN: No ulcer, rash, bleeding. JOINTS: No active deforming arthropathy. LABORATORY DATA: Reviewed. ASSESSMENT: 1. Acute severe pancreatitis and acute abdominal pain. 2. ETOH. 3. Hypertension. 4. Gastroesophageal reflux disease. 5. History of cerebrovascular accident, transient ischemic attack. 6. Multiple medical issues. RECOMMENDATIONS AND DISCUSSION: This is a 43-year-old gentleman, who presented with multiple complex medical issues, we will monitor the patient closely. Continue the current medications. Continue the pain management and p.o. surgical evaluation. Repeat labs in the morning. Monitor blood pressure closely. Prognosis guarded because of multiple complex medical issues. Further recommendations to follow. See orders for further details. MMODL / IJN: [id number] /
[2024-01-15] MEDS: KETOROLAC 15 MG/ML 1 ML VIAL IVP PRN (22:38)
[2024-01-16 07:41] VITALS: TEMP 98.1
[2024-01-16] MEDS ORDERED: PANTOPRAZOLE 40 MG TABLET PO SCH (09:00)
[2024-01-16 10:47] LABS: Basophils # (A) 0.05 X 10*3/uL (0.00-0.10); Basophils % (A) 0.5 %; Eosinophils # (A) 0.56 X 10*3/uL (0.04-0.35); HCT 30.1 % (39.6-50.0); HGB 9.6 g/dL (13.0-17.0); Lymphocytes % (A) 18.3 %; MCH 31.2 pg (27.0-32.0); MCHC 31.9 g/dL (32.0-37.0); MCV 97.7 FL (80.0-97.0); Mean Platelet Volume 8.3 FL (9.5-12.2); Monocytes # (A) 1.04 X 10*3/uL (0.20-1.00); Monocytes % (A) 11.2 %; NRBC Per 100 WBC 0 X 10*3/uL (0.00-0.01); Neutrophils # (A) 5.92 X 10*3/uL (1.80-7.70); Neutrophils % (A) 63.7 %; Platelet Count 592 X 10*3/uL (140-440); RBC 3.08 X 10*6/uL (4.40-5.60); RDW 16.6 % (11.5-14.5)
[2024-01-16 10:57] LABS: ALT 11 U/L (10-49); AST 15 U/L (14-35); Albumin 2.5 g/dL (3.8-4.9); Albumin/Globulin Ratio 1.25 Ratio (1.60-3.17); Alkaline Phosphatase 145 U/L (41-126); Amylase 226 U/L (23-121); BUN/Creat Ratio <11.67 Ratio (12.00-20.00); Blood Urea Nitrogen <3.5 mg/dL (9.0-27.0); Calcium 7.9 mg/dL (8.7-10.3); Carbon Dioxide 23.5 mmol/L (21.6-31.8); Chloride 108 mmol/L (96-109); Glucose 84 mg/dL (70-110); Lipase 226 U/L (14-60); Potassium 3.7 mmol/L (3.5-5.5); Sodium 140 mmol/L (135-145); Total Bilirubin <0.2 mg/dL (0.3-1.2); Total Protein 4.5 g/dL (6.2-8.2)
[2024-01-16 13:56] VITALS: BP 123/78; PULSE 79; RESP 17
--- NOTE | 2024-01-16 13:58 | P.PN ---
Subjective Progress Note Date: 01/16/24 CHIEF COMPLAINT: Pancreatitis HISTORY OF PRESENT ILLNESS: Patient reports that his epigastric abdominal pain is improving. He tolerated the clear liquids. Denies any nausea or vomiting. Ultrasound showed no evidence of gallstones. Patient evaluated by interventional radiology service regarding his pancreatic cysts. IR service is unable to drain the cysts. Afebrile. WBC 9.3 lipase down from 1361-226 Patient seen and examined with Dr. Ocampo PHYSICAL EXAM: VITAL SIGNS: Reviewed. GENERAL: Well-developed in no acute distress. ABDOMEN: Soft. Nondistended. Mild epigastric tenderness NEUROLOGIC: Alert and oriented. Cranial nerves II through XII grossly intact. ASSESSMENT: 1. Acute on chronic pancreatitis alcohol induced 2. 3 surrounding acute pancreatic fluid collections 3. History of pancreatic cyst requiring drainage at [facility] about 1 year ago 4. History of alcohol abuse PLAN: -Advance diet to full liquids -Repeat lipase in a.m. -No surgical intervention planned -Recommend that patient follows up at [facility] regarding his pancreatic cysts -Patient educated on alcohol cessation -Surgical service will sign off. Please call with any questions or concerns Physician Four Roll Calender Operator note has been reviewed by physician. Signing provider agrees with the documented findings, assessment, and plan of care. Objective - Vital Signs Vital signs: Vital Signs Temp 98.1 F 01/16/24 07:00 Pulse 63 01/16/24 07:00 Resp 16 01/16/24 07:00 BP 131/86 01/16/24 07:00 Pulse Ox 98 01/16/24 07:00 FiO2 Intake & Output 01/15/24 01/16/24 01/16/24 18:59 06:59 18:59 Weight 45.359 kg 45.359 kg Other: # Voids 1 - Labs CBC & Chem 7: 01/16/24 06:50 01/16/24 06:50 Labs: Abnormal Lab Results - Last 24 Hours (Table) 01/16/24 01/16/24 Range/Units 06:50 06:50 RBC 3.08 L (4.40-5.60) X 10*6/uL Hgb 9.6 L (13.0-17.0) g/dL Hct 30.1 L (39.6-50.0) % MCV 97.7 H (80.0-97.0) FL MCHC 31.9 L (32.0-37.0) g/dL RDW 16.6 H (11.5-14.5) % Plt Count 592 H (140-440) X 10*3/uL MPV 8.3 L (9.5-12.2) FL Monocytes # 1.04 H (0.20-1.00) X 10*3/uL Eosinophils # 0.56 H (0.04-0.35) X 10*3/uL BUN <3.5 L (9.0-27.0) mg/dL Creatinine 0.3 L (0.6-1.5) mg/dL BUN/Creatinine Ratio <11.67 L (12.00-20.00) Ratio Calcium 7.9 L (8.7-10.3) mg/dL Total Bilirubin <0.2 L (0.3-1.2) mg/dL Alkaline Phosphatase 145 H (41-126) U/L Total Protein 4.5 L (6.2-8.2) g/dL Albumin 2.5 L (3.8-4.9) g/dL Albumin/Globulin Ratio 1.25 L (1.60-3.17) Ratio Amylase 226 H (23-121) U/L Lipase 226 H (14-60) U/L
== END 2024-01-16 14:40 | disposition home or self-care (01) ==
LOC: EC 08:45 → 6NMEDSUR 12:43
PROVIDERS: ADMIT Internal Medicine; ATTEND Internal Medicine
DX: K85.20 Alcohol induced acute pancreatitis without necrosis or infection (principal); K86.0 Alcohol-induced chronic pancreatitis; K86.2 Cyst of pancreas; R18.8 Other ascites; F10.10 Alcohol abuse, uncomplicated; I10 Essential (primary) hypertension; K21.9 Gastro-esophageal reflux disease without esophagitis; F17.200 Nicotine dependence, unspecified, uncomplicated; Z79.899 Other long term (current) drug therapy; Z86.73 Personal history of transient ischemic attack (TIA), and cerebral infarction without residual deficits
CPT/HCPCS: 96376 ×2; 96372 ×2; 96375 ×2; 96361; 96374; 99285; 36415; 93005; 80053 ×2; 82150 ×2; 83605; 83690 ×2; 85025 ×2; 85610; 85730; 81003; 76705; 74177; G0378 ×2; S4990 ×2; J1644 ×2; J2405; J1170 ×3; J1885 ×2; Q9967; J2470 ×2

== ENCOUNTER 2024-01-20 17:45 | Emergency (ER) | payer OTHER ==
--- NOTE | 2024-01-20 18:31 | ED ---
Abdominal Pain HPI - General Chief Complaint: Abdominal Pain Stated Complaint: Abd pain Time Seen by Provider: 01/20/24 18:31 Source: patient Mode of arrival: ambulatory Limitations: no limitations - History of Present Illness Initial Comments: 43-year-old male presenting with chief complaint of epigastric pain. He has history of chronic pancreatitis. He was recently discharged from our facility for treatment of his pancreatitis with pseudocyst. His pain started about 3 hours ago. Feels similar to previous pancreatitis flareups. Admits to nausea w ith no vomiting. No diarrhea. No fevers. No hematochezia, melena, hematemesis. Patient is a previous alcoholic, stopped drinking 12 days ago. - Related Data Home Medications Medication Instructions Recorded Confirmed Omeprazole 40 mg PO DAILY 08/02/23 01/15/24 Pregabalin [Lyrica] 75 mg PO TID 08/10/23 01/15/24 Previous Rx's Medication Instructions Recorded Nicotine 14Mg/24Hr Patch [Habitrol] 1 patch TRANSDERM DAILY patch 01/16/24 Pantoprazole Sodium [Protonix] 40 mg PO DAILY #30 tab 01/16/24 chlordiazePOXIDE HCl [Librium] 10 mg PO TID #6 cap 01/16/24 cloNIDine HCL [Catapres] 0.1 mg PO Q4HR PRN tab 01/16/24 cloNIDine HCL [Catapres] 0.1 mg PO TID #30 tab 01/16/24 HYDROcodone/APAP 7.5-325MG [[place] 1 tab PO Q6HR PRN 3 Days #12 tab 01/20/24 7.5-325] Ondansetron Odt [Zofran Odt] 4 mg PO Q8HR PRN #20 tab 01/20/24 Allergies Allergy/AdvReac Type Severity Reaction Status Date / Time No Known Allergies Allergy Verified 01/20/24 18:30 Review of Systems ROS Statement: Those systems with pertinent positive or pertinent negative responses have been documented in the HPI. ROS Other: All systems not noted in ROS Statement are negative. Past Medical History Past Medical History: CVA/TIA, GERD/Reflux, Hearing Disorder / Deafness, Hypertension, Musculoskeletal Disorder Additional Past Medical History / Comment(s): TIA, States needs MRI of brain. "High heart rate recently from the pain". Hiatal hernia. Chronic pancreat itis/pain. 4 slipped discs in back. Sore muscles. Mild hearing loss. History of Any Multi-Drug Resistant Organisms: None Reported Additional Past Surgical History / Comment(s): "Pseudocyst removed from stomach". Past Anesthesia/Blood Transfusion Reactions: No Reported Reaction Past Psychological History: No Psychological Hx Reported Smoking Status: Current every day smoker Past Alcohol Use History: Abuse Past Drug Use History: Marijuana - Past Family History Father Family Medical History: Cancer Additional Family Medical History / Comment(s): Colon cancer. General Exam - General Exam Comments Initial Comments: Visual Physical Exam Vital signs reviewed General: Well-appearing, nontoxic, no acute distress. Head: Normocephalic, atraumatic Eyes: PERRLA, EOMI ENT: Airway patent Chest: Nonlabored breathing Skin: No visual rash, normal skin tone Neuro: Alert and oriented 3 Musculoskeletal: No gross abnormalities Limitations: no limitations General appearance: alert, in no apparent distress Head exam: Present: atraumatic, normocephalic Eye exam: Present: normal appearance, EOMI Neck exam: Present: normal inspection. Absent: meningismus Respiratory exam: Absent: respiratory distress Cardiovascular Exam: Present: regular rate GI/Abdominal exam: Present: soft, tenderness. Absent: distended, guarding, rebound, rigid Neurological exam: Present: alert, oriented X3 Psychiatric exam: Present: normal affect, normal mood Skin exam: Present: warm, dry Course Vital Signs 01/20/24 01/20/24 01/20/24 18:25 19:30 21:54 Temperature 98.2 F 97.8 F Pulse Rate 78 82 74 Respiratory 18 16 16 Rate Blood Pressure 143/86 149/97 160/87 O2 Sat by Pulse 100 98 100 Oximetry Medical Decision Making - Medical Decision Making Was pt. sent in by a medical professional or institution (, PA, FRUIT COORDINATOR, urgent care, hospital, or senior living...) When possible be specific @ -No Did you speak to anyone other than the patient for history (EMS, parent, family, police, friend...)? What history was obtained from this source @ -No Did you review nursing and triage notes (agree or disagree)? Why? @ -I reviewed and agree with nursing and triage notes Were old charts reviewed (outside hosp., previous admission, EMS record, old EKG, old radiological studies, urgent care reports/EKG's, senior living records)? Report findings @ -Most recent admission was reviewed Differential Diagnosis (chest pain, altered mental status, abdominal pain women, abdominal pain men, vaginal bleeding, weakness, fever, dyspnea, syncope, headache, dizziness, GI bleed, back pain, seizure, CVA, palpatations, mental health, musculoskeletal)? @ -[facility] Differential Abdominal Pain Men: Appendicitis, cholecystitis, diverticulosis, ischemic bowel, pancreatitis, hepatitis, UTI, gastroenteritis, AAA, incarcerated hernia, bowel obstruction, constipation, inflammatory bowel, hepatitis, peptic ulcer disease, splenic infarction, perforated viscus, testicular torsion... This is not meant to be an all-inclusive list EKG interpreted by me (3pts min.). @ -As above X-rays interpreted by me (1pt min.). @ -None done CT interpreted by me (1pt min.). @ -None done U/S interpreted by me (1pt. min.). @ -None done What testing was considered but not performed or refused? (CT, X-rays, U/S, labs)? Why? @ -None What meds were considered but not given or refused? Why? @ -None Did you discuss the management of the patient with other professionals (professionals i.e. , PA, FRUIT COORDINATOR, lab, RT, psych nurse, social and political studies professor, kindergartner, teacher, service officer, case resolution specialist)? Give summary @ -No Was smoking cessation discussed for >3mins.? @ -No Was critical care preformed (if so, how long)? @ -No Were there social determinants of health that impacted care today? How? (Homelessness, low income, unemployed, alcoholism, drug addiction, transportation, low edu. Level, literacy, decrease access to med. care, custodial, rehab)? @ -No Was there de-escalation of care discussed even if they declined (Discuss DNR or withdrawal of care, Hospice)? DNR status @ -No What co-morbidities impacted this encounter? (DM, HTN, Smoking, COPD, CAD, Cancer, CVA, ARF, Chemo, Hep., AIDS, mental health diagnosis, sleep apnea, morbid obesity)? @ -None Was patient admitted / discharged? Hospital course, mention meds given and route, prescriptions, significant lab abnormalities, going to OR and other pertinent info. @ -43-year-old male presenting with chief complaint of epigastric pain. History of chronic pancreatitis. Workup initiated by triage. Patient is later placed in a hallway bed and evaluated by myself. White count 12.7 hemoglobin 11.8. Lipase is 351. This is an improvement from his previous admission when his lipase was initially 1361. On reassessment after pain medication and fluids patient reports significant improvement in his symptoms. He is educated on today's findings. Feels comfortable with discharge home. Provided with pain and nausea medication. Follow-up with PCP. Report back to ER with any new or worsening symptoms. Discussed return parameters and answered all questions. Patient conveyed verbal understanding and agreed to the plan. I discussed this case in detail with my attending Dr. Castañeda Undiagnosed new problem with uncertain prognosis? @ -No Drug Therapy requiring intensive monitoring for toxicity (Heparin, Nitro, Insulin, Cardizem)? @ -No Were any procedures done? @ -No Diagnosis/symptom? @ -Chronic pancreatitis Acute, or Chronic, or Acute on Chronic? @ -Acute on chronic Uncomplicated (without systemic symptoms) or Complicated (systemic symptoms)? @ -Uncomplicated Side effects of treatment? @ -No Exacerbation, Progression, or Severe Exacerbation? @ -No Poses a threat to life or bodily function? How? (Chest pain, USA, MS, pneumonia, PE, COPD, DKA, ARF, appy, cholecystitis, CVA, Diverticulitis, Homicidal, Suicidal, threat to staff... and all critical care pts) @ -Low likelihood at this time - Lab Data Result diagrams: 01/20/24 18:37 01/20/24 18:37 Lab Results 01/20/24 01/20/24 01/20/24 Range/Units 18:37 18:37 18:37 WBC 12.7 H (3.8-10.6) k/uL RBC 3.90 L (4.30-5.90) m/uL Hgb 11.8 L (13.0-17.5) gm/dL Hct 39.1 (39.0-53.0) % MCV 100.3 H (80.0-100.0) fL MCH 30.3 (25.0-35.0) pg MCHC 30.2 L (31.0-37.0) g/dL RDW 15.7 H (11.5-15.5) % Plt Count 751 H (150-450) k/uL MPV 7.1 Neutrophils % 74 % Lymphocytes % 14 % Monocytes % 7 % Eosinophils % 3 % Basophils % 0 % Neutrophils # 9.4 H (1.3-7.7) k/uL Lymphocytes # 1.7 (1.0-4.8) k/uL Monocytes # 0.9 (0-1.0) k/uL Eosinophils # 0.4 (0-0.7) k/uL Basophils # 0.1 (0-0.2) k/uL Hypochromasia Slight Macrocytosis Slight Sodium 134 L (137-145) mmol/L Potassium 4.4 (3.5-5.1) mmol/L Chloride 103 (98-107) mmol/L Carbon Dioxide 26 (22-30) mmol/L Anion Gap 5 mmol/L BUN 8 L (9-20) mg/dL Creatinine 0.39 L (0.66-1.25) mg/dL Est GFR (CKD-EPI)AfAm >90 (>60 ml/min/1.73 sqM) Est GFR (CKD-EPI)NonAf >90 (>60 ml/min/1.73 sqM) Glucose 123 H (74-99) mg/dL Plasma Lactic Acid Sina 1.9 (0.7-2.0) mmol/L Calcium 8.6 (8.4-10.2) mg/dL Total Bilirubin 0.2 (0.2-1.3) mg/dL AST 37 (17-59) U/L ALT 17 (4-49) U/L Alkaline Phosphatase 124 (38-126) U/L Total Protein 5.8 L (6.3-8.2) g/dL Albumin 3.0 L (3.5-5.0) g/dL Amylase 84 (30-110) U/L Lipase 351 H (23-300) U/L Disposition Clinical Impression: Chronic pancreatitis Disposition: HOME SELF-CARE Condition: Good Instructions (If sedation given, give patient instructions): Pancreatitis (ED) Additional Instructions: Follow-up with PCP. Report back to ER with any new or worsening symptoms. Prescriptions: HYDROcodone/APAP 7.5-325MG [[place] 7.5-325] 1 tab PO Q6HR PRN 3 Days #12 tab PRN Reason: Pain Ondansetron Odt [Zofran Odt] 4 mg PO Q8HR PRN #20 tab PRN Reason: Nausea Is patient prescribed a controlled substance at d/c from ED?: Yes When asked, does pt state using other controlled substances?: No If prescribed controlled substance>3 days was MAPS reviewed?: Prescribed <3 Days If opioid is for acute pain is fill amount 7 days or less?: Yes Referrals: Sunny Gonzáles MD [Primary Care Provider] - 1-2 days Time of Disposition: 21:13
[2024-01-20 18:48] LABS: Basophils # (A) 0.1 k/uL (0-0.2); Basophils % (A) 0 %; Eosinophils # (A) 0.4 k/uL (0-0.7); Eosinophils % (A) 3 %; HCT 39.1 % (39.0-53.0); HGB 11.8 gm/dL (13.0-17.5); Hypochromasia Slight; Lymphocytes # (A) 1.7 k/uL (1.0-4.8); Lymphocytes % (A) 14 %; MCH 30.3 pg (25.0-35.0); MCHC 30.2 g/dL (31.0-37.0); MCV 100.3 fL (80.0-100.0); Macrocytosis Slight; Mean Platelet Volume 7.1; Monocytes # (A) 0.9 k/uL (0-1.0); Monocytes % (A) 7 %; Neutrophils # (A) 9.4 k/uL (1.3-7.7); Neutrophils % (A) 74 %; Platelet Count 751 k/uL (150-450); RDW 15.7 % (11.5-15.5); WBC 12.7 k/uL (3.8-10.6)
[2024-01-20 19:18] LABS: ALT 17 U/L (4-49); AST 37 U/L (17-59); African American GFR (CKD) >90 (>60 ml/min/1.73 sqM); Alkaline Phosphatase 124 U/L (38-126); Amylase 84 U/L (30-110); Anion Gap 5 mmol/L; Blood Urea Nitrogen 8 mg/dL (9-20); Calcium 8.6 mg/dL (8.4-10.2); Carbon Dioxide 26 mmol/L (22-30); Chloride 103 mmol/L (98-107); Glucose 123 mg/dL (74-99); Lipase 351 U/L (23-300); Non-African American GFR(CKD) >90 (>60 ml/min/1.73 sqM); Potassium 4.4 mmol/L (3.5-5.1); Sodium 134 mmol/L (137-145); Total Bilirubin 0.2 mg/dL (0.2-1.3); Total Protein 5.8 g/dL (6.3-8.2)
[2024-01-20] MEDS: HYDROmorphone 1 MG/ML 1 ML SYRINGE IVP STA (20:13)
[2024-01-20] MEDS: ONDANSETRON 4 MG/2 ML VIAL IVP STA (20:17)
[2024-01-20] MEDS: SODIUM CHLORIDE 0.9% 1,000 ML IV ONE (20:17)
[2024-01-20 20:25] VITALS: RESP 16; TEMP 97.8
[2024-01-20 21:54] VITALS: BP 160/87; PULSE 74
[2024-01-20] MEDS: HYDROmorphone 0.5 MG/0.5 ML SYRINGE IVP STA (21:55)
== END 2024-01-20 22:04 | disposition home or self-care (01) ==
LOC: EC 17:45
DX: K86.1 Other chronic pancreatitis (principal); Z86.73 Personal history of transient ischemic attack (TIA), and cerebral infarction without residual deficits; F17.200 Nicotine dependence, unspecified, uncomplicated
CPT/HCPCS: 36415; 80053; 82150; 83605; 83690; 85025; 99284; 96374; 96375; 96376; 96361; J2405; J1170 ×2

== ENCOUNTER 2024-09-24 19:56 | Inpatient (IN) | payer OTHER ==
--- NOTE | 2024-09-24 21:30 | ED ---
Extremity Problem HPI - General Source: patient, RN notes reviewed Mode of arrival: ambulatory Limitations: no limitations <Tiarra Mcdonnell - Last Filed: 09/25/24 01:19> <Tessa Chowdary - Last Filed: 09/29/24 22:05> - General Chief complaint: Extremity Problem,Nontraumatic Stated complaint: leg numbness Time Seen by Provider: 09/24/24 21:25 - History of Present Illness Initial comments: 44-year-old male presenting for bilateral lower extremity numbness x 3 days. Reports a numb and tingly sensation in the legs that has been worsening in severity. Reports he has been having difficulty walking today due to the n umbness. States he was at the dentist earlier today and he had a syncopal episode. Reports mild dizziness prior to the syncope. States he did not hit his head. Endorses some chronic lower back pain but denies any new injury or trauma. Denies saddle anesthesia. Denies bowel or bladder incontinence. Denies chest pain. He has chronic abdominal pain due to chronic pancreatitis. He is a daily alcohol drinker. States he has had about 2 beers today. (Tiarra Mcdonnell) - Related Data Home Medications Medication Instructions Recorded Confirmed Omeprazole 40 mg PO DAILY 08/02/23 09/25/24 Lipase/Protease/Amylase [Creon Dr 3 cap PO DAILY 09/25/24 09/25/24 36,000 Unit Capsule] Pregabalin [Lyrica] 150 mg PO BID 09/25/24 09/25/24 Previous Rx's Medication Instructions Recorded Apixaban [Eliquis Starter Pack 5 - 10 mg PO DIRECTED 30 Days 09/27/24 (for VTE)] #1 each Cholecalciferol [Vitamin D3 (25 50 mcg PO DAILY #30 tab 09/27/24 Mcg = 1000 Iu)] Folic Acid 1 mg PO DAILY #30 tab 09/27/24 Magnesium Oxide [Brownlee] 500 mg PO DAILY #7 tablet 09/27/24 Thiamine [Vitamin B-1] 100 mg PO DAILY #30 tab 09/27/24 methylPREDNISolone [Medrol Dose 0 mg PO DIRECTED #1 packet 09/27/24 Pack] Allergies Allergy/AdvReac Type Severity Reaction Status Date / Time No Known Allergies Allergy Verified 09/25/24 07:59 Review of Systems ROS Other: All systems not noted in ROS Statement are negative. <Tiarra Mcdonnell - Last Filed: 09/25/24 01:19> ROS Other: All systems not noted in ROS Statement are negative. <Tessa Chowdary - Last Filed: 09/29/24 22:05> ROS Statement: Those systems with pertinent positive or pertinent negative responses have been documented in the HPI. Past Medical History Past Medical History: CVA/TIA, GERD/Reflux, Hearing Disorder / Deafness, Hypertension, Musculoskeletal Disorder Additional Past Medical History / Comment(s): TIA, States needs MRI of brain. "High heart rate recently from the pain". Hiatal hernia. Chronic pancreatitis/pain. 4 slipped discs in back. Sore muscles. Mild hearing loss. History of Any Multi-Drug Resistant Organisms: None Reported Additional Past Surgical History / Comment(s): "Pseudocyst removed from stomach". Past Anesthesia/Blood Transfusion Reactions: No Reported Reaction Past Psychological History: No Psychological Hx Reported Smoking Status: Current every day smoker Past Alcohol Use History: Abuse Past Drug Use History: Marijuana - Past Family History Father Family Medical History: Cancer Additional Family Medical History / Comment(s): Colon cancer. <Tiarra Mcdonnell - Last Filed: 09/25/24 01:19> General Exam Limitations: no limitations General appearance: alert, in no apparent distress Head exam: Present: atraumatic, normocephalic, normal inspection Eye exam: Present: normal appearance, PERRL, EOMI. Absent: scleral icterus, conjunctival injection, periorbital swelling Respiratory exam: Present: normal lung sounds bilaterally. Absent: respiratory distress, wheezes, rales, rhonchi, stridor Cardiovascular Exam: Present: regular rate, normal rhythm, normal heart sounds. Absent: systolic murmur, diastolic murmur, rubs, gallop, clicks GI/Abdominal exam: Present: soft, normal bowel sounds. Absent: distended, tenderness, guarding, rebound, rigid Back exam: Present: normal inspection, full ROM, tenderness (Diffuse tenderness in the thoracic and lumbar portion of spine), paraspinal tenderness, vertebral tenderness, other (No saddle anesthesia. Decreased strength in bilateral lower extremities. Full sensation and DP pulses intact bilaterally). Absent: CVA tenderness (R), CVA tenderness (L) Neurological exam: Present: alert, oriented X3 Psychiatric exam: Present: normal affect, normal mood Skin exam: Present: warm, dry, intact, normal color. Absent: rash <Tiarra Mcdonnell - Last Filed: 09/25/24 01:19> Course Vital Signs 09/24/24 09/24/24 09/25/24 20:12 23:10 00:42 Temperature 97.8 F Pulse Rate 123 H 107 H 107 H Respiratory 20 18 18 Rate Blood Pressure 117/67 117/78 127/87 O2 Sat by Pulse 98 98 96 Oximetry 09/25/24 09/25/24 09/25/24 02:03 03:58 06:32 Temperature Pulse Rate 106 H 92 87 Respiratory 18 18 17 Rate Blood Pressure 114/85 119/99 118/88 O2 Sat by Pulse 96 98 Oximetry 09/25/24 09/25/24 09/25/24 08:53 20:17 22:15 Temperature 97.9 F Pulse Rate 104 H 94 92 Respiratory 18 18 Rate Blood Pressure 127/96 134/99 147/99 O2 Sat by Pulse 98 100 Oximetry Medical Decision Making - Lab Data Result diagrams: 09/24/24 21:31 09/24/24 21:31 - EKG Data -: EKG Interpreted by Me <Tiarra Mcdonnell - Last Filed: 09/25/24 01:19> - Lab Data Result diagrams: 09/26/24 07:00 09/27/24 06:52 <Tessa Chowdary - Last Filed: 09/29/24 22:05> - Medical Decision Making Was pt. sent in by a medical professional or institution ([facility], [employer], urgent care, hospital, or care home...) When possible be specific @ -No Did you speak to anyone other than the patient for history (EMS, parent, family, police, friend...)? What history was obtained from this source @ -No Did you review nursing and triage notes (agree or disagree)? Why? @ -I reviewed and agree with nursing and triage notes Were old charts reviewed (outside hosp., previous admission, EMS record, old EKG, old radiological studies, urgent care reports/EKG's, care home records)? Report findings @ -No old charts were reviewed Differential Diagnosis (chest pain, altered mental status, abdominal pain women, abdominal pain men, vaginal bleeding, weakness, fever, dyspnea, syncope, headache, dizziness, GI bleed, back pain, seizure, CVA, palpatations, mental health, musculoskeletal)? @ -Differential Musculoskeletal Muscular strain, contusion, ligament sprain, fracture, arthritis, septic arthritis, bursitis, cellulitis, muscle spasm, nerve compression, DVT, arterial occlusion, herpes zoster, electrolyte abnormality, tumor.... This is not meant to be in all inclusive list EKG interpreted by me (3pts min.). @ -As above X-rays interpreted by me (1pt min.). @ -None done CT interpreted by me (1pt min.). @ -CT abdomen pelvis reveals chronic pancreatitis present on admission has changes concerning for acute on chronic pancreatitis with decreased size of peripancreatic pseudocysts from prior, large filling defect identified within splenic vein extending towards portal confluence most consistent with venous thrombosis, remaining portal venous system patent U/S interpreted by me (1pt. min.). @ -None done What testing was considered but not performed or refused? (CT, X-rays, U/S, labs)? Why? @ -None What meds were considered but not given or refused? Why? @ -None Did you discuss the management of the patient with other professionals (professionals i.e. , PA, PERFUME MAKER, lab, RT, psych nurse, social group worker, satellite tv technician installer, teacher, seaman officer, shelter case manager)? Give summary @ -I spoke with Dr. Lamar on-call vascular who recommends starting patient on IV heparin for portal vein thrombosis and states no other vascular intervention is needed at this time. [facility] was paged regarding this patient multiple times over the course of 1.5 hours with no response. Was smoking cessation discussed for >3mins.? @ -No Was critical care preformed (if so, how long)? @ -Yes, 45 minutes Were there social determinants of health that impacted care today? How? (Homelessness, low income, unemployed, alcoholism, drug addiction, transportation, low edu. Level, literacy, decrease access to med. care, senior care, rehab)? @ -No Was there de-escalation of care discussed even if they declined (Discuss DNR or withdrawal of care, Hospice)? DNR status @ -No What co-morbidities impacted this encounter? (DM, HTN, Smoking, COPD, CAD, Cancer, CVA, ARF, Chemo, Hep., AIDS, mental health diagnosis, sleep apnea, morbid obesity)? @ -Alcohol use disorder Was patient admitted / discharged? Hospital course, mention meds given and route, prescriptions, significant lab abnormalities, going to OR and other pertinent info. @ -Admitted. 44-year-old male with history of EtOH abuse presenting for bilateral leg numbness x 3 days. Denies injury or trauma. Patient is tachycardic, otherwise vital signs within acceptable limits. Patient is well- appearing and in no acute distress. No saddle anesthesia or bowel or bladder incontinence. DP pulses intact bilaterally. Patient was provided with IV fluids, Ativan for alcohol withdrawal, and Decadron. Lab work remarkable for leukocytosis of 15, lactic acidosis 6.6, magnesium 0.5, ionized calcium 3.0, AST 60, blood alcohol 44, potassium 3.4. CT abdomen pelvis with contrast revealed large filling defect within the splenic vein extending towards portal confluence most consistent with venous thrombosis. Patient was started on IV heparin for venous thrombosis per Dr. Lamar. Given 1 dose of calcium gluconate and 4 mg of magnesium. CIWA Protocol initiated. Patient was admitted to medicine. Case was discussed in detail with my ED attending Dr. Chowdary. Undiagnosed new problem with uncertain prognosis? @ -No Drug Therapy requiring intensive monitoring for toxicity (Heparin, Nitro, Insulin, Cardizem)? @ -Yes, heparin Were any procedures done? @ -No Diagnosis/symptom? @ -Splenic vein thrombosis, hypocalcemia, hypomagnesia, lactic acidosis Acute, or Chronic, or Acute on Chronic? @ -Acute Uncomplicated (without systemic symptoms) or Complicated (systemic symptoms)? @ -Complicated Side effects of treatment? @ -No Exacerbation, Progression, or Severe Exacerbation? @ -No Poses a threat to life or bodily function? How? (Chest pain, [place], [place], pneumonia, PE, COPD, DKA, ARF, appy, cholecystitis, CVA, Diverticulitis, Homicidal, Kathleen cidal, threat to staff... and all critical care pts) @ -Yes (Tiarra Mcdonnell) - Lab Data Lab Results 09/24/24 09/24/24 09/24/24 Range/Units 21:31 21:31 21:31 WBC 14.8 H (3.8-10.6) k/uL RBC 3.46 L (4.30-5.90) m/uL Hgb 11.4 L (13.0-17.5) gm/dL Hct 35.0 L (39.0-53.0) % MCV 101.1 H (80.0-100.0) fL MCH 32.9 (25.0-35.0) pg MCHC 32.6 (31.0-37.0) g/dL RDW 19.0 H (11.5-15.5) % Plt Count 385 (150-450) k/uL MPV 7.4 Neutrophils % 75 % Lymphocytes % 16 % Monocytes % 7 % Eosinophils % 1 % Basophils % 0 % Neutrophils # 11.1 H (1.3-7.7) k/uL Lymphocytes # 2.4 (1.0-4.8) k/uL Monocytes # 1.0 (0-1.0) k/uL Eosinophils # 0.1 (0-0.7) k/uL Basophils # 0.0 (0-0.2) k/uL Anisocytosis Slight Macrocytosis Moderate Sodium 129 L (137-145) mmol/L Potassium 3.4 L (3.5-5.1) mmol/L Chloride 91 L (98-107) mmol/L Carbon Dioxide 23 (22-30) mmol/L Anion Gap 15 mmol/L BUN <2 L (9-20) mg/dL Creatinine 0.31 L (0.66-1.25) mg/dL Est GFR (CKD-EPI)AfAm >90 (>60 ml/min/1.73 sqM) Est GFR (CKD-EPI)NonAf >90 (>60 ml/min/1.73 sqM) Glucose 96 (74-99) mg/dL Lactic Ac Sepsis Rflx Plasma Lactic Acid Sina 6.6 H* (0.7-2.0) mmol/L Calcium 5.3 L* (8.4-10.2) mg/dL Ionized Calcium Cisco (4.5-5.3) mg/dL Phosphorus (2.5-4.5) mg/dL Magnesium (1.6-2.3) mg/dL Total Bilirubin 0.6 (0.2-1.3) mg/dL AST 60 H (17-59) U/L ALT 36 (4-49) U/L Alkaline Phosphatase 184 H (38-126) U/L Total Protein 5.9 L (6.3-8.2) g/dL Albumin 2.8 L (3.5-5.0) g/dL Vitamin B12 (200.0-944.0) pg/mL Folate (4.40-31.00) ng/mL Serum Alcohol 44 mg/dL 09/24/24 09/24/24 09/24/24 Range/Units 21:56 23:26 23:26 WBC (3.8-10.6) k/uL RBC (4.30-5.90) m/uL Hgb (13.0-17.5) gm/dL Hct (39.0-53.0) % MCV (80.0-100.0) fL MCH (25.0-35.0) pg MCHC (31.0-37.0) g/dL RDW (11.5-15.5) % Plt Count (150-450) k/uL MPV Neutrophils % % Lymphocytes % % Monocytes % % Eosinophils % % Basophils % % Neutrophils # (1.3-7.7) k/uL Lymphocytes # (1.0-4.8) k/uL Monocytes # (0-1.0) k/uL Eosinophils # (0-0.7) k/uL Basophils # (0-0.2) k/uL Anisocytosis Macrocytosis Sodium (137-145) mmol/L Potassium (3.5-5.1) mmol/L Chloride (98-107) mmol/L Carbon Dioxide (22-30) mmol/L Anion Gap mmol/L BUN (9-20) mg/dL Creatinine (0.66-1.25) mg/dL Est GFR (CKD-EPI)AfAm (>60 ml/min/1.73 sqM) Est GFR (CKD-EPI)NonAf (>60 ml/min/1.73 sqM) Glucose (74-99) mg/dL Lactic Ac Sepsis Rflx Y Plasma Lactic Acid Sina (0.7-2.0) mmol/L Calcium (8.4-10.2) mg/dL Ionized Calcium Cisco 3.0 L* (4.5-5.3) mg/dL Phosphorus 3.8 (2.5-4.5) mg/dL Magnesium 0.5 L* (1.6-2.3) mg/dL Total Bilirubin (0.2-1.3) mg/dL AST (17-59) U/L ALT (4-49) U/L Alkaline Phosphatase (38-126) U/L Total Protein (6.3-8.2) g/dL Albumin (3.5-5.0) g/dL Vitamin B12 505.0 (200.0-944.0) pg/mL Folate (4.40-31.00) ng/mL Serum Alcohol mg/dL 09/24/24 Range/Units 23:26 WBC (3.8-10.6) k/uL RBC (4.30-5.90) m/uL Hgb (13.0-17.5) gm/dL Hct (39.0-53.0) % MCV (80.0-100.0) fL MCH (25.0-35.0) pg MCHC (31.0-37.0) g/dL RDW (11.5-15.5) % Plt Count (150-450) k/uL MPV Neutrophils % % Lymphocytes % % Monocytes % % Eosinophils % % Basophils % % Neutrophils # (1.3-7.7) k/uL Lymphocytes # (1.0-4.8) k/uL Monocytes # (0-1.0) k/uL Eosinophils # (0-0.7) k/uL Basophils # (0-0.2) k/uL Anisocytosis Macrocytosis Sodium (137-145) mmol/L Potassium (3.5-5.1) mmol/L Chloride (98-107) mmol/L Carbon Dioxide (22-30) mmol/L Anion Gap mmol/L BUN (9-20) mg/dL Creatinine (0.66-1.25) mg/dL Est GFR (CKD-EPI)AfAm (>60 ml/min/1.73 sqM) Est GFR (CKD-EPI)NonAf (>60 ml/min/1.73 sqM) Glucose (74-99) mg/dL Lactic Ac Sepsis Rflx Plasma Lactic Acid Sina (0.7-2.0) mmol/L Calcium (8.4-10.2) mg/dL Ionized Calcium Cisco (4.5-5.3) mg/dL Phosphorus (2.5-4.5) mg/dL Magnesium (1.6-2.3) mg/dL Total Bilirubin (0.2-1.3) mg/dL AST (17-59) U/L ALT (4-49) U/L Alkaline Phosphatase (38-126) U/L Total Protein (6.3-8.2) g/dL Albumin (3.5-5.0) g/dL Vitamin B12 (200.0-944.0) pg/mL Folate <2.00 L (4.40-31.00) ng/mL Serum Alcohol mg/dL - EKG Data EKG Comments: EKG reveals junctional tachycardia with prolonged QT. Ventricular rate 110 bpm, parable 95, QRS duration 92, QT/QTc 368/433 (Tiarra Mcdonnell) Disposition Time of Disposition: 01:22 <Tiarra Mcdonnell - Last Filed: 09/25/24 01:19> <Tessa Chowdary - Last Filed: 09/29/24 22:05> Clinical Impression: Splenic vein thrombosis, Hypomagnesemia, Hypocalcemia, Alcohol withdrawal Disposition: ADMITTED IP TO THIS HOSP
[2024-09-24 21:40] LABS: Anisocytosis Slight; Basophils % (A) 0 %; Eosinophils # (A) 0.1 k/uL (0-0.7); Eosinophils % (A) 1 %; HGB 11.4 gm/dL (13.0-17.5); Lymphocytes # (A) 2.4 k/uL (1.0-4.8); Lymphocytes % (A) 16 %; MCH 32.9 pg (25.0-35.0); MCHC 32.6 g/dL (31.0-37.0); MCV 101.1 fL (80.0-100.0); Macrocytosis Moderate; Mean Platelet Volume 7.4; Monocytes % (A) 7 %; Neutrophils # (A) 11.1 k/uL (1.3-7.7); Neutrophils % (A) 75 %; Platelet Count 385 k/uL (150-450); RBC 3.46 m/uL (4.30-5.90); WBC 14.8 k/uL (3.8-10.6)
[2024-09-24 21:49] LABS: ALT 36 U/L (4-49); AST 60 U/L (17-59); African American GFR (CKD) >90 (>60 ml/min/1.73 sqM); Albumin 2.8 g/dL (3.5-5.0); Alcohol 44 mg/dL; Alkaline Phosphatase 184 U/L (38-126); Anion Gap 15 mmol/L; Blood Urea Nitrogen <2 mg/dL (9-20); Carbon Dioxide 23 mmol/L (22-30); Chloride 91 mmol/L (98-107); Glucose 96 mg/dL (74-99); Non-African American GFR(CKD) >90 (>60 ml/min/1.73 sqM); Potassium 3.4 mmol/L (3.5-5.1); Sodium 129 mmol/L (137-145); Total Bilirubin 0.6 mg/dL (0.2-1.3); Total Protein 5.9 g/dL (6.3-8.2)
[2024-09-24] MEDS: DEXAMETHASONE SOD PHOSPHATE 10 MG/ML 1 ML VIAL IM STA (21:51)
[2024-09-24 21:56] LABS: Calcium 5.3 mg/dL (8.4-10.2)
[2024-09-24] MEDS: HYDROmorphone 1 MG/ML 1 ML SYRINGE IVP STA (21:57)
[2024-09-24] MEDS: LORazepam 2 MG/ML INJ IV STA (21:58)
[2024-09-24] MEDS: DEXAMETHASONE SOD PHOSPHATE 10 MG/ML 1 ML VIAL IVP STA (21:59)
--- NOTE | 2024-09-24 22:51 | CT ---
EXAMINATION TYPE: CT abdomen pelvis w con CT DLP: 519.5 mGycm, Automated exposure control for dose reduction was used. DATE OF EXAM: 09/24/2024 10:22 PM COMPARISON: CT abdomen pelvis 01/15/2024, 07/05/2023, gallbladder ultrasound 01/15/2024 CLINICAL INDICATION:Male, 44 years old with history of b/l lower extremity numbness; Pt arrives in [facility] today for bilateral leg tingling/numbness for past few days. neuro fast exam negative in triage. H/O hiatal hernia, "Pseudocyst removed from stomach" per pt, chronic pancreatitis, everyday smoker TECHNIQUE: Standard CT of the abdomen and pelvis following the administration of 100 cc of Isovue 3 00 IV contrast material. Coronal and sagittal reformats were performed. FINDINGS: LOWER CHEST: Unremarkable ABDOMEN LIVER: Diffusely hypoattenuating parenchyma. GALLBLADDER AND BILE DUCTS: Unremarkable. PANCREAS: Edematous appearance of the entire pancreas with some mild surrounding inflammatory changes . Tortuous. Appearance of the pancreatic duct with coarse parenchymal calcifications. Slightly decrea se fluid collection within the pancreatic head measuring 9 mm, previously measured up to 16 mm. SPLEEN: Unremarkable. ADRENAL GLANDS: Unremarkable. KIDNEYS AND URETERS: No evidence of hydronephrosis or renal calculus. The kidneys enhance symmetrical ly. Contrast is demonstrated within both collecting systems on the delayed phase. PELVIS BLADDER: Unremarkable REPRODUCTIVE: Coarse calcifications of the prostate gland are identified. ABDOMEN & PELVIS STOMACH AND BOWEL: There is redemonstration of gastric fold thickening involving the greater curvatur e of the stomach with some surrounding inflammatory changes along its inferior aspect and decrease si ze of a fluid collection along the inferior aspect of the stomach measuring up to 1.8 cm, previously measured up to 2.6 cm. None of these fluid collections demonstrate gas.The appendix is within normal limits. No evidence of bowel obstruction. PERITONEUM: No evidence of pneumoperitoneum. Trace perisplenic ascites. VASCULATURE: No evidence of aortic aneurysm. The SMV and main portal venous branches are patent. Ther e is a large filling defect is identified within the splenic vein extending into the portal confluenc e. This persists on the delayed phase. Multiple collateral vessels identified within the left upper q uadrant again. MUSCULOSKELETAL: No acute osseous abnormalities LYMPH NODES: No evidence for lymphadenopathy. SOFT TISSUE/ABDOMINAL WALL: Unremarkable IMPRESSION: 1. Findings most consistent with chronic pancreatitis with some edematous changes concerning for acu te on chronic pancreatitis. Decreased size of peripancreatic pseudocysts from prior examination. Larg est is inferior to the gastric body. 2. Large filling defect identified within the splenic vein extending towards the portal confluence mo st consistent with venous thrombosis. The remaining portal venous system is patent. 3. Gastric inflammatory changes from the surrounding pancreatic inflammatory changes. 4. Hepatic steatosis. 5. Trace perisplenic ascites. [facility], , 09/24/2024 10:49 PM
[2024-09-24 23:52] LABS: Phosphorus 3.8 mg/dL (2.5-4.5)
[2024-09-25 00:25] LABS: Magnesium 0.5 mg/dL (1.6-2.3)
[2024-09-25] MEDS: SODIUM CHLORIDE 0.9% 1,000 ML IV SCH ×2 (00:36→01:49)
[2024-09-25] MEDS ORDERED: NALOXONE 0.4 MG/ML 1 ML VIAL IV PRN (01:03)
[2024-09-25] MEDS ORDERED: HEPARIN SODIUM 1,000 UN/ML (10ML VL) IV PRN (01:08)
[2024-09-25] MEDS ORDERED: LORazepam 2 MG/ML INJ IV PRN ×2 (01:08)
[2024-09-25] MEDS: CALCIUM GLUCONATE IN NACL 1 GM in SALINE 1 100ML.BAG IVPB ONE ×2 (01:46→15:39)
[2024-09-25] MEDS: LORazepam 2 MG/ML INJ IV STA (01:48)
[2024-09-25] MEDS: THIAMINE 100 MG/ML 2 ML VIAL IM STA (01:51)
[2024-09-25] MEDS: MAGNESIUM SULFATE-D5W PMX 1 GM in DEXTROSE/WATER 1 100ML.BAG IVPB SCH (01:56)
[2024-09-25] MEDS: HEPARIN SOD,PORK IN 0.45% NACL 25,000 UNIT in 0.45% NACL 1 250ML.BAG IV SCH (01:59)
[2024-09-25] MEDS: HEPARIN SODIUM 1,000 UN/ML (10ML VL) IV ONE (02:01)
[2024-09-25] MEDS: HYDROmorphone 1 MG/ML 1 ML SYRINGE IVP PRN (04:07)
[2024-09-25] MEDS: NICOTINE 21MG/24HR PATCH TRANSDERM SCH (11:32)
[2024-09-25] MEDS: PREGABALIN 75 MG CAP PO SCH (11:32)
[2024-09-25] MEDS: PANTOPRAZOLE 40 MG/10 ML VIAL IVP SCH (11:34)
--- NOTE | 2024-09-25 13:26 | P.HPIM ---
History of Present Illness H&P Date: 09/25/24 This is a 44-year-old male with medical history significant for chronic pancreatitis, chronic alcoholism, lower back pain, hiatal hernia, TIA, hypertension, gastroesophageal reflux disease, chronic nicotine use 1 pack/day smoker, marijuana use. Reports to drinking alcohol every day a couple beers a day. Patient comes in to the hospital after having a syncopal episode while going to the dentist yesterday. Patient states that he was feeling dizzy prior to the episode. He did fall and lose consciousness. Patient has been having abdominal pain with nausea and vomiting over the last week and feels that he was having a pancreas flareup. He additionally has been complaining of this numbness and tingling from the abdomen down to his toes and weakness in his lower extremities bilaterally. Was unable to perform a straight leg raise test without eliciting worsening pain to the lower back. He denies any saddle parasthesias or loss of bladder or bowel. He has no focal neurological deficits denies any facial droop slurring of the speech swallowing issues. He is not having any dizziness or lightheadedness currently no headache. No shortness of breath no chest pain. He has not been having any fever or chills. He does state that a few times over the last week while he has been vomiting he does note that this emesis may have been like coffee grounds but none currently. Initial blood work reveals a white blood cell count 14.8, hemoglobin 11.4 platelets of 385, sodium 129, potassium 3.4, BUN of less than 2 creatinine 0.31, lactic acid of 6.6 calcium of 5.3 ionized calcium of 3.0, magnesium of 0.5 AST of 60 ALT of 36 alk phos of 184 serum alcohol level was 44 on admit. Abdominal pelvis CT reveals findings most consistent with chronic pancreatitis with some edematous changes concerning for an acute on chronic pancreatitis. Decrease size of peripancreatic pseudocyst from prior examination. Largest is inferior to the gastric body. Large filling defect identified within the splenic vein extending towards the portal confluence most consistent with venous thrombosis. The remaining portal venous system is patent. Gastric and plantar changes from the surrounding pancreatic inflammatory changes. Hepatic steatosis. Trace perisplenic ascites. Patient received a dose of IV decadron while in the ER. He was started on IV heparin and admitted to the hospital under internal medicine. REVIEW OF SYSTEMS: CONSTITUTIONAL: No fever, no malaise, no fatigue. HEENT: No recent visual problems or hearing problems. Denied any sore throat. CARDIOVASCULAR: No chest pain, orthopnea, PND, no palpitations, no syncope. PULMONARY: No shortness of breath, no cough, no hemoptysis. GASTROINTESTINAL: No diarrhea, no nausea, no vomiting, Reports abdominal pain. NEUROLOGICAL: No headaches, no weakness, no numbness. HEMATOLOGICAL: Denies any bleeding or petechiae. GENITOURINARY: Denies any burning micturition, frequency, or urgency. MUSCULOSKELETAL/RHEUMATOLOGICAL: Denies any joint pain, swelling. Reports lower back pain and lower extremity weakness, numbness and tingling. ENDOCRINE: Denies any polyuria or polydipsia. The rest of the 14-point review of systems is negative. PHYSICAL EXAMINATION: GENERAL: The patient is alert and oriented x3, not in any acute distress. Well developed, well nourished. HEENT: Pupils are round and equally reacting to light. EOMI. No scleral icterus. No conjunctival pallor. Normocephalic, atraumatic. No pharyngeal erythema. No thyromegaly. CARDIOVASCULAR: S1 and S2 present. No murmurs, rubs, or gallops. PULMONARY: Chest is clear to auscultation, no wheezing or crackles. ABDOMEN: Soft, nontender, nondistended, normoactive bowel sounds. No palpable organomegaly. MUSCULOSKELETAL: No joint swelling or deformity. EXTREMITIES: No cyanosis, clubbing, or pedal edema. NEUROLOGICAL: Gross neurological examination did not reveal any focal deficits. SKIN: No rashes. Assessment and Plan Splenic vein thrombosis Acute on chronic pancreatitis Syncope likely due to dehydration and volume depletion Nausea and vomiting from the pancreatitis Lactic acidosis from dehydration and vomiting Hypocalcemia Hypomagnesemia Alcoholic hepatitis Parasthesias and lower extremity weakness /lower back pain Peripheral neuropathy Chronic nicotine use and impending withdrawal History of TIA Hypertension Gastroesophageal reflux disease Chronic nicotine use 1 pack per day smoker Marijuana use GI prophylaxis DVT prophylaxis IV heparin Full Code Plan Thoracolumbar xray ordered and orthopedic spinal consult Continue on IV heparin for now Resume lyrica Nicotine patch has been ordered Replace electrolytes and pending repeat blood work Continue IV ativan [facility] protocol PT/OT consultation The impression and plan of care has been dictated by Bere Brownlee, Nurse Practitioner as directed. Dr. Koby MD I have performed a history and physical examination and medical decision making of this patient, discussed the same with the dictator, and agree with the dictators assessment and plan as written, documented as a scribe. Based on total visit time, I have performed more than 50% of this visit. Past Medical History Past Medical History: CVA/TIA, GERD/Reflux, Hearing Disorder / Deafness, Hypertension, Musculoskeletal Disorder Additional Past Medical History / Comment(s): TIA, States needs MRI of brain. "High heart rate recently from the pain". Hiatal hernia. Chronic pancreatitis/pain. 4 slipped discs in back. Sore muscles. Mild hearing loss. History of Any Multi-Drug Resistant Organisms: None Reported Additional Past Surgical History / Comment(s): "Pseudocyst removed from stomach". Past Anesthesia/Blood Transfusion Reactions: No Reported Reaction Past Psychological History: No Psychological Hx Reported Smoking Status: Current every day smoker Past Alcohol Use History: Abuse Additional Past Alcohol Use History / Comment(s): Smokes 1 ppd, since age 12. "39 days sober from alcohol". Past Drug Use History: Marijuana Additional Drug Use History / Comment(s): Marijuana daily. Aware no use 24 hrs prior to procedure. - Past Family History Father Family Medical History: Cancer Additional Family Medical History / Comment(s): Colon cancer. Medications and Allergies Home Medications Medication Instructions Recorded Confirmed Type Omeprazole 40 mg PO DAILY 08/02/23 09/25/24 History Lipase/Protease/Amylase [Man [place]tega 3 cap PO DAILY 09/25/24 09/25/24 History 36,000 Unit Capsule] Pregabalin [Lyrica] 150 mg PO BID 09/25/24 09/25/24 History Allergies Allergy/AdvReac Type Severity Reaction Status Date / Time No Known Allergies Allergy Verified 09/25/24 07:59 Physical Exam Vitals: Vital Signs Temp Pulse Resp BP Pulse Ox 09/25/24 08:53 104 H 18 127/96 98 09/25/24 06:32 87 17 118/88 98 09/25/24 03:58 92 18 119/99 96 09/25/24 02:03 106 H 18 114/85 09/25/24 00:42 107 H 18 127/87 96 09/24/24 23:10 107 H 18 117/78 98 09/24/24 20:12 97.8 F 123 H 20 117/67 98 Intake and Output 09/24/24 09/25/24 09/25/24 22:59 06:59 14:59 Other: Weight 49.895 kg 49.895 kg Results CBC & Chem 7: 09/24/24 21:31 09/24/24 21:31 Labs: Abnormal Lab Results - Last 24 Hours (Table) 09/24/24 09/24/24 09/24/24 Range/Units 21:31 21:31 21:31 WBC 14.8 H (3.8-10.6) k/uL RBC 3.46 L (4.30-5.90) m/uL Hgb 11.4 L (13.0-17.5) gm/dL Hct 35.0 L (39.0-53.0) % MCV 101.1 H (80.0-100.0) fL RDW 19.0 H (11.5-15.5) % Neutrophils # 11.1 H (1.3-7.7) k/uL APTT (22.0-30.0) sec Sodium 129 L (137-145) mmol/L Potassium 3.4 L (3.5-5.1) mmol/L Chloride 91 L (98-107) mmol/L BUN <2 L (9-20) mg/dL Creatinine 0.31 L (0.66-1.25) mg/dL Plasma Lactic Acid Sina 6.6 H* (0.7-2.0) mmol/L Calcium 5.3 L* (8.4-10.2) mg/dL Ionized Calcium Cisco (4.5-5.3) mg/dL Magnesium (1.6-2.3) mg/dL AST 60 H (17-59) U/L Alkaline Phosphatase 184 H (38-126) U/L Total Protein 5.9 L (6.3-8.2) g/dL Albumin 2.8 L (3.5-5.0) g/dL 09/24/24 09/25/24 09/25/24 Range/Units 23:26 00:21 07:50 WBC (3.8-10.6) k/uL RBC (4.30-5.90) m/uL Hgb (13.0-17.5) gm/dL Hct (39.0-53.0) % MCV (80.0-100.0) fL RDW (11.5-15.5) % Neutrophils # (1.3-7.7) k/uL APTT 58.9 H (22.0-30.0) sec Sodium (137-145) mmol/L Potassium (3.5-5.1) mmol/L Chloride (98-107) mmol/L BUN (9-20) mg/dL Creatinine (0.66-1.25) mg/dL Plasma Lactic Acid Sina 2.9 H* (0.7-2.0) mmol/L Calcium (8.4-10.2) mg/dL Ionized Calcium Cisco 3.0 L* (4.5-5.3) mg/dL Magnesium 0.5 L* (1.6-2.3) mg/dL AST (17-59) U/L Alkaline Phosphatase (38-126) U/L Total Protein (6.3-8.2) g/dL Albumin (3.5-5.0) g/dL Thrombosis Risk Factor Assmnt - Choose All That Apply Any of the Below Risk Factors Present?: Yes Each Factor Represents 1 point: Age 41-60 years Other Risk Factors: No Other congenital or acquired thrombophilia - If yes, enter type in comment: No Thrombosis Risk Factor Assessment Total Risk Factor Score: 1 Thrombosis Risk Factor Assessment Level: Low Risk Assessment and Plan Time with Patient: Greater than 30
[2024-09-25 14:02] LABS: AST 127 U/L (17-59); African American GFR (CKD) >90 (>60 ml/min/1.73 sqM); Albumin 2.6 g/dL (3.5-5.0); Alkaline Phosphatase 236 U/L (38-126); Anion Gap 12 mmol/L; Blood Urea Nitrogen <2 mg/dL (9-20); Carbon Dioxide 19 mmol/L (22-30); Chloride 100 mmol/L (98-107); Glucose 210 mg/dL (74-99); Lipase 120 U/L (23-300); Magnesium 1.9 mg/dL (1.6-2.3); Non-African American GFR(CKD) >90 (>60 ml/min/1.73 sqM); Sodium 131 mmol/L (137-145); Total Bilirubin 0.5 mg/dL (0.2-1.3); Total Protein 5.6 g/dL (6.3-8.2)
[2024-09-25 14:19] LABS: ALT 46 U/L (4-49); Calcium 5.6 mg/dL (8.4-10.2)
--- NOTE | 2024-09-25 14:56 | XR ---
EXAMINATION TYPE: XR thoracic spine 2V, XR lumbar spine 2 or 3V DATE OF EXAM: 09/25/2024 2:44 PM COMPARISON: None CLINICAL INDICATION: Male, 44 years old with history of lower back pain and weakness; PHH, pain TECHNIQUE: XR thoracic spine 2V, XR lumbar spine 2 or 3V views of the spine in Frontal, swimmers and lateral projections. Frontal lateral and presumed in L5-S1 view of the lumbar spine. FINDINGS: No evidence of acute fracture. There is scattered multilevel disk space narrowing without loss of ve rtebral body height. There is normal alignment of the thoracic vertebral bodies. Scattered osteophyte formation along the anterior and lateral aspects of the vertebral bodies. Neural foramen are patent given limitations of this exam. Spinal canal appears patent. IMPRESSION: 1. No acute osseous pathology. 2. [id number] multilevel degeneration changes of the spine. [facility], , 09/25/2024 2:54 PM
[2024-09-25] MEDS: HYDROmorphone 0.5 MG/0.5 ML SYRINGE IVP PRN (16:31)
[2024-09-25] MEDS: LORazepam 2 MG/ML INJ IV PRN (16:36)
[2024-09-25] MEDS ORDERED: LORazepam 1 MG/0.5 ML VIAL IV PRN ×2 (22:50→22:51)
[2024-09-25] MEDS: LORazepam 1 MG/0.5 ML VIAL IV PRN (23:01)
[2024-09-26 07:20] LABS: Anisocytosis Slight; HCT 30.1 % (39.0-53.0); MCH 32.9 pg (25.0-35.0); MCHC 31.6 g/dL (31.0-37.0); MCV 104.2 fL (80.0-100.0); Macrocytosis Moderate; Mean Platelet Volume 7.7; Platelet Count 345 k/uL (150-450); RBC 2.89 m/uL (4.30-5.90); RDW 18.4 % (11.5-15.5); WBC 10.1 k/uL (3.8-10.6)
[2024-09-26 07:26] LABS: HGB 9.5 gm/dL (13.0-17.5)
[2024-09-26] MEDS: LIPASE 20,000/PROTEASE 63,000/AMYLASE 84,000 PO SCH (08:08)
[2024-09-26] MEDS: DEXAMETHASONE SOD PHOSPHATE 4 MG/ML 1 ML VIAL IVP SCH (08:09)
--- NOTE | 2024-09-26 09:35 | P.CNOR ---
History of Present Illness - [facility] Consult date: 09/26/24 Requesting physician: Bere Brownlee Consult reason: other (Lower extremity weakness and numbness and tingling) History of present illness: Patient is a very pleasant 44-year-old male who is seen examined bedside for further evaluation of his thoracic and lumbar spines. Patient states over the past 5 days he has had significant weakness with his hip flexion bilaterally. He has fallen 4 times. He states he has numbness at approximately his pubic bone radiating down the bilateral lower extremities over the front of his legs to his feet. He is having significant difficulty ambulating due to his symptoms. He denies any saddle anesthesia. He is not having any change in his genital sensation. He is able to void and have bowel movement without any significant difficulty. X-ray imaging of thoracic and lumbar spines which shows some mild degenerative changes. Patient is not currently complaining of any significant thoracic or lumbar pain. His pain is most significant in his lower extremities with hip flexion weakness. Patient is currently admitted to medicine. He has a significant medical history including chronic pancreatitis, chronic alcoholism, history of TIA, hypertension, GERD, chronic nicotine use of 1 pack/day, and marijuana use. He did sustain a fall with syncopal episode at his dentist on 09/24/2024. He felt dizzy prior to the episode. He is not having any dizziness currently. He is currently being treated for acute on chronic pancreatitis. He also has hypocalcemia, hypomagnesemia, hypertension, neuropathy and alcoholic hepatitis. Patient has been started on Decadron per medicine. Patient is also on Ativan and Dilaudid for pain control. He has been started on nicotine patch. Past Medical History Past Medical History: CVA/TIA, GERD/Reflux, Hearing Disorder / Deafness, Hypert ension, Musculoskeletal Disorder Additional Past Medical History / Comment(s): TIA, States needs MRI of brain. "High heart rate recently from the pain". Hiatal hernia. Chronic pancreatitis/pain. 4 slipped discs in back. Sore muscles. Mild hearing loss. History of Any Multi-Drug Resistant Organisms: None Reported Additional Past Surgical History / Comment(s): "Pseudocyst removed from stomach". Past Anesthesia/Blood Transfusion Reactions: No Reported Reaction Past Psychological History: No Psychological Hx Reported Smoking Status: Current every day smoker Past Alcohol Use History: Abuse Additional Past Alcohol Use History / Comment(s): Smokes 1 ppd, since age 12. "39 days sober from alcohol". Past Drug Use History: Marijuana Additional Drug Use History / Comment(s): Marijuana daily. Aware no use 24 hrs prior to procedure. - Past Family History Father Family Medical History: Cancer Additional Family Medical History / Comment(s): Colon cancer. Medications and Allergies Home Medications Medication Instructions Recorded Confirmed Type Omeprazole 40 mg PO DAILY 08/02/23 09/25/24 History Lipase/Protease/Amylase [Creon Dr 3 cap PO DAILY 09/25/24 09/25/24 History 36,000 Unit Capsule] Pregabalin [Lyrica] 150 mg PO BID 09/25/24 09/25/24 History Allergies Allergy/AdvReac Type Severity Reaction Status Date / Time No Known Allergies Allergy Verified 09/25/24 07:59 Physical Examination Physical exam: Patient is awake, alert, and oriented 3 Vital signs stable Good chest excursion with deep inspiration and expiration Abdomen soft nontender Examination of thoracic and lumbar spine reveals skin is intact with no abrasions, lacerations, or bruises; no erythema, purulence or signs of infection No pain with palpation over the thoracic or lumbar spines Dorsiflexion, plantarflexion, and extensor hallucis longus positive sustained bilaterally except for hip flexion bilaterally Significant weakness with hip flexion bilaterally with motor function strength 3/5 No clonus No lower extremity hyperreflexia bilaterally Straight leg test negative bilateral lower extremities No signs or symptoms of DVT; no calf pain No pain with internal and external rotation of the hips bilaterally Results Pertinent studies: X-rays of the thoracic and lumbar spines taken on 09/25/2024: Overall alignment appears to be fairly well-maintained; there may be slight retrolisthesis at L4- 5; T11 mild inferior endplate compression; mid and upper thoracic spine diff icult to assess for compression fracture - Labs Labs: Abnormal Lab Results - Last 24 Hours (Table) 09/24/24 09/25/24 09/25/24 Range/Units 23:26 07:50 09:49 RBC (4.30-5.90) m/uL Hgb (13.0-17.5) gm/dL Hct (39.0-53.0) % MCV (80.0-100.0) fL RDW (11.5-15.5) % APTT 58.9 H (22.0-30.0) sec Sodium 131 L (137-145) mmol/L Carbon Dioxide 19 L (22-30) mmol/L BUN <2 L (9-20) mg/dL Creatinine 0.30 L (0.66-1.25) mg/dL Glucose 210 H (74-99) mg/dL Calcium 5.6 L* (8.4-10.2) mg/dL Magnesium (1.6-2.3) mg/dL AST 127 H (17-59) U/L Alkaline Phosphatase 236 H (38-126) U/L Total Protein 5.6 L (6.3-8.2) g/dL Albumin 2.6 L (3.5-5.0) g/dL Folate <2.00 L (4.40-31.00) ng/mL 09/26/24 09/26/24 09/26/24 Range/Units 07:00 07:00 07:00 RBC 2.89 L (4.30-5.90) m/uL Hgb 9.5 L D (13.0-17.5) gm/dL Hct 30.1 L (39.0-53.0) % MCV 104.2 H (80.0-100.0) fL RDW 18.4 H (11.5-15.5) % APTT 43.3 H (22.0-30.0) sec Sodium (137-145) mmol/L Carbon Dioxide (22-30) mmol/L BUN (9-20) mg/dL Creatinine (0.66-1.25) mg/dL Glucose (74-99) mg/dL Calcium (8.4-10.2) mg/dL Magnesium 1.5 L (1.6-2.3) mg/dL AST (17-59) U/L Alkaline Phosphatase (38-126) U/L Total Protein (6.3-8.2) g/dL Albumin (3.5-5.0) g/dL Folate (4.40-31.00) ng/mL H & H 09/24/24 09/26/24 Range/Units 21:31 07:00 Hgb 11.4 L 9.5 L D (13.0-17.5) gm/dL Hct 35.0 L 30.1 L (39.0-53.0) % Result Diagrams: 09/26/24 07:00 09/25/24 09:49 Assessment and Plan Assessment: Assessment: Bilateral hip flexion weakness Bilateral lower extremity numbness and tingling starting at the pubic bone through the anterior thighs and down to the feet Multiple falls due to lower extremity weakness Mild low back pain without exacerbation Slight retrolisthesis at L4-5 T11 mild inferior endplate compression No thoracic back pain Acute on chronic pancreatitis Hypocalcemia Hypomagnesemia Hypertension Alcoholic hepatitis Neuropathy Alcoholism Current everyday smoker Marijuana use (1) Hip weakness Current Visit: Yes Status: Acute Code(s): R29.898 - OTH SYMPTOMS AND SIGNS INVOLVING THE MUSCULOSKELETAL SYSTEM SNOMED Code(s): 857339292 (2) Multiple falls Current Visit: Yes Status: Acute Code(s): R29.6 - REPEATED FALLS SNOMED Code(s): 350841514 (3) Lower extremity numbness Current Visit: Yes Status: Acute Code(s): R20.0 - ANESTHESIA OF SKIN SNOMED Code(s): 729845500 (4) Spondylolisthesis, lumbar region Current Visit: Yes Status: Acute Code(s): M43.16 - SPONDYLOLISTHESIS, LUMBAR REGION SNOMED Code(s): 183487541883948 (5) Compression fracture of T11 vertebra Current Visit: Yes Status: Acute Code(s): S22.080A - WEDGE COMPRESSION FRACTURE OF T11-T12 VERTEBRA, INIT SNOMED Code(s): 835859456 (6) Low back pain Current Visit: Yes Status: Acute Code(s): M54.50 - LOW BACK PAIN, UNSPECIFIED SNOMED Code(s): 587147689 (7) Current smoker Current Visit: Yes Status: Acute Code(s): F17.200 - NICOTINE DEPENDENCE, UNSPECIFIED, UNCOMPLICATED SNOMED Code(s): 33496802 (8) Marijuana use Current Visit: Yes Status: Acute Code(s): F12.90 - CANNABIS USE, UNSPECIFIED, UNCOMPLICATED SNOMED Code(s): 820092537 (9) Alcoholism Current Visit: Yes Status: Acute Code(s): F10.20 - ALCOHOL DEPENDENCE, UNCOMPLICATED SNOMED Code(s): 9555537 (10) Alcoholic hepatitis Current Visit: Yes Status: Acute Code(s): K70.10 - ALCOHOLIC HEPATITIS WITHOUT ASCITES SNOMED Code(s): 006326010 (11) Neuropathy Current Visit: Yes Status: Acute Code(s): G62.9 - POLYNEUROPATHY, UNSPECIFIED SNOMED Code(s): 690470822 (12) Hypocalcemia Current Visit: Yes Status: Acute Code(s): E83.51 - HYPOCALCEMIA SNOMED Code(s): 8454841 (13) Hypomagnesemia Current Visit: Yes Status: Acute Code(s): E83.42 - HYPOMAGNESEMIA SNOMED Code(s): 598875733 (14) Pancreatitis Current Visit: No Status: Acute Code(s): K85.90 - ACUTE PANCREATITIS WITHOUT NECROSIS OR INFECTION, UNSP SNOMED Code(s): 64110784 Plan: Plan: 1. Over the past 5 days patient has had significant difficulty with his mobilization. He has new onset weakness with his hip flexion bilaterally. He has numbness at his pubic bone radiating down his lower extremities over the anterior thighs into his feet. He is not experiencing any thoracic back pain. He has mild low back pain without exacerbation. His numbness and weakness with hip flexion is his most significant symptom. He does have some mild changes on thoracic and x-ray imaging. Given the severity of his symptoms, we will plan to obtain lumbar MRI imaging for further evaluation. We did discuss we will follow-up following completion and reviewing of lumbar MRI to discuss the results and treatment options. 2. We also plan to consult neurology for further evaluation. 3. Patient will continue be seen exam by medicine for his multiple other medical diagnoses. Medicine will continue to manage his pain and other medical diagnoses. Time with Patient: Greater than 30 (Including obtaining history, physical examination, reviewing of imaging, and dictation.)
--- NOTE | 2024-09-26 11:26 | MR ---
EXAMINATION TYPE: MR lumbar spine wo con DATE OF EXAM: 09/26/2024 COMPARISON: Lumbar spine x-ray from one day earlier. CT abdomen and pelvis from 2 days earlier HISTORY: Bilateral LE weakness. TECHNIQUE: Multiplanar, multisequence imaging of the lumbar spine is performed without IV contrast. FINDINGS: Sagittal images of the lumbar spine show vertebral body heights and alignment to appear sat isfactory. There is disc desiccation at L4-L5 and L5-S1 levels. Disc space heights are preserved. Th e conus medullaris is normal in position and signal ending at inferior T12 level. The bone marrow si gnal intensity is within normal limits. Axial images show mild facet arthropathy in the lower lumbar levels. Spinal canal is preserved. Bilat eral neural foramina are patent at all lumbar levels. No large disc herniation is present. IMPRESSION: No suspicious abnormality seen to account for patient's symptoms. . [facility], , 09/26/2024 11:24 AM
[2024-09-26] MEDS ORDERED: Magnesium Replacement Protocol 1 EACH MISC MISCELLANE PRN (11:51)
[2024-09-26] MEDS: MAGNESIUM SULFATE-D5W PMX 1 GM in DEXTROSE/WATER 1 100ML.BAG IVPB SCH (12:40)
[2024-09-26 12:44] VITALS: BMI 18.3
--- NOTE | 2024-09-26 13:26 | P.CNNES ---
History of Present Illness Consult date: 09/26/24 Requesting physician: Mendez Spence Reason for Consult: new onset lower extremity weakness and numbness History of Present Illness: 44-year-old gentleman with history of significant alcohol use, tobacco use, pancreatitis who presents the emergency department on 09/24/2024 because of numbness in the lower extremity. Patient stated that his symptoms began about 5-6 days ago which he noticed that he is having numbness from his waist down. He stated began at the proximal and went down and as a result he is following. He also noticed some weakness in the lower extremity but predominates in the numbness. Denies any weakness or numbness that is new in the upper extremity. Denies any bowel issues. Denies any recent fever. He has chronic low back pain denies any new worsening of the back pain. He denies any radicular symptoms. He states he has been vomiting weeks prior to that. He does drink alcohol on a daily basis and he stated that he is attempted to cut down he drinks about 8 to 10 cans of beers with 5% alcohol. He does have some component of neuropathy. Some of the workup during this hospital visit consisted of: Calcium is 5.3 and ionized calcium is 3.0, phosphorus 3.8, magnesium is 0.5 Vitamin B12 is 505 Serum folate is less than 2 Sodium is 129 Plasma lactic acid vein is elevated on presentation. Serum alcohol is 44 MRI lumbar is reported as no suspicious abnormality seen to account for the patient symptoms. The abdomen is reported as finding consistent with chronic pancreatitis with so me edematous changes concerning for acute on chronic pancreatitis. There is a concern for splenic vein venous thrombosis. Review of Systems As per HPI. Past Medical History Past Medical History: CVA/TIA, GERD/Reflux, Hearing Disorder / Deafness, Hypertension, Musculoskeletal Disorder Additional Past Medical History / Comment(s): TIA, States needs MRI of brain. "High heart rate recently from the pain". Hiatal hernia. Chronic pancreatitis/pain. 4 slipped discs in back. Sore muscles. Mild hearing loss. History of Any Multi-Drug Resistant Organisms: None Reported Additional Past Surgical History / Comment(s): "Pseudocyst removed from stomach". Past Anesthesia/Blood Transfusion Reactions: No Reported Reaction Past Psychological History: No Psychological Hx Reported Smoking Status: Current every day smoker Past Alcohol Use History: Abuse Additional Past Alcohol Use History / Comment(s): Smokes 1 ppd, since age 12. "39 days sober from alcohol". Past Drug Use History: Marijuana Additional Drug Use History / Comment(s): Marijuana daily. Aware no use 24 hrs prior to procedure. - Past Family History Father Family Medical History: Cancer Additional Family Medical History / Comment(s): Colon cancer. Medications and Allergies Home Medications Medication Instructions Recorded Confirmed Type Omeprazole 40 mg PO DAILY 08/02/23 09/25/24 History Lipase/Protease/Amylase [Creon Dr 3 cap PO DAILY 09/25/24 09/25/24 History 36,000 Unit Capsule] Pregabalin [Lyrica] 150 mg PO BID 09/25/24 09/25/24 History Allergies Allergy/AdvReac Type Severity Reaction Status Date / Time No Known Allergies Allergy Verified 09/25/24 07:59 Physical Examination - Vital Signs Vital Signs: Vital Signs Temp Pulse Pulse Resp BP BP Pulse Ox 09/26/24 11:33 92 18 154/98 100 09/26/24 08:30 94 18 09/26/24 08:23 97.8 F 94 18 148/93 100 09/26/24 03:43 98 F 85 18 136/90 99 09/25/24 23:00 98.3 F 100 20 155/103 100 09/25/24 22:15 97.9 F 92 18 147/99 100 09/25/24 20:17 94 134/99 Intake and Output 09/25/24 09/26/24 09/26/24 22:59 06:59 14:59 Intake Total 228.267 496 Output Total 325 1350 Balance -96.733 -854 Intake: IV 20 Invasive Line 1 20 Intake, IV Titration 228.267 Amount Heparin Sod,Pork in 0.45% 228.267 NaCl 25,000 unit In 0.45 % NaCl 1 250ml.bag @ 18 UNITS/KG/HR 8.981 mls/hr IV .Q24H [facility] Rx#: [id number] Oral 476 Output: Urine 325 1350 Other: Voiding Method Toilet Weight 51.5 kg 51.5 kg GENERAL: The patient is sitting in a recliner chair and is not in acute distress. NEUROLOGICAL: Higher mental function: The patient is awake, alert, oriented to self, place and time. Patient is following commands. No aphasia and no neglect. Cranial nerves: The pupils are round, equal and reactive to light and accommodation. Visual stokes are full to confrontation throughout. Extraocular movement is intact no nystagmus is noted. Facial sensation is normal to touch throughout. The facial strength is normal throughout. Hearing is normal bilaterally to hand rub. Tongue is midline and moved [id number] without any d ifficulty. No dysarthria is noted. Shoulder shrug is normal bilaterally. Motor: The strength is 5 over 5 throughout uppers. Lowers: ankles are 4-4+ bilaterally, otherwise lowers are 5/5. Normal tone and bulk. Cerebellum: Normal finger to nose bilaterally. Sensation: Sensation is decreased from T12 region and down to touch. Reflexes (right/left): Biceps 2+/2+; triceps 2+/1+; brachioradialis 1+/1+; patellar 0/0; ankles 0/0. Plantars are mute bilaterally. Results - Laboratory Findings CBC and BMP: 09/26/24 07:00 09/25/24 09:49 Abnormal Lab Findings: Abnormal Labs 09/24/24 09/24/24 09/24/24 21:31 21:31 21:31 WBC 14.8 H RBC 3.46 L Hgb 11.4 L Hct 35.0 L MCV 101.1 H RDW 19.0 H Neutrophils # 11.1 H APTT Sodium 129 L Potassium 3.4 L Chloride 91 L Carbon Dioxide BUN <2 L Creatinine 0.31 L Glucose Plasma Lactic Acid Sina 6.6 H* Calcium 5.3 L* Ionized Calcium Cisco Magnesium AST 60 H Alkaline Phosphatase 184 H Total Protein 5.9 L Albumin 2.8 L Folate 09/24/24 09/24/24 09/25/24 23:26 23:26 00:21 WBC RBC Hgb Hct MCV RDW Neutrophils # APTT Sodium Potassium Chloride Carbon Dioxide BUN Creatinine Glucose Plasma Lactic Acid Sina 2.9 H* Calcium Ionized Calcium Cisco 3.0 L* Magnesium 0.5 L* AST Alkaline Phosphatase Total Protein Albumin Folate <2.00 L 09/25/24 09/25/24 09/26/24 07:50 09:49 07:00 WBC RBC Hgb Hct MCV RDW Neutrophils # APTT 58.9 H 43.3 H Sodium 131 L Potassium Chloride Carbon Dioxide 19 L BUN <2 L Creatinine 0.30 L Glucose 210 H Plasma Lactic Acid Sina Calcium 5.6 L* Ionized Calcium Cisco Magnesium AST 127 H Alkaline Phosphatase 236 H Total Protein 5.6 L Albumin 2.6 L Folate 09/26/24 09/26/24 07:00 07:00 WBC RBC 2.89 L Hgb 9.5 L D Hct 30.1 L MCV 104.2 H RDW 18.4 H Neutrophils # APTT Sodium Potassium Chloride Carbon Dioxide BUN Creatinine Glucose Plasma Lactic Acid Sina Calcium Ionized Calcium Cisco Magnesium 1.5 L AST Alkaline Phosphatase Total Protein Albumin Folate Assessment and Plan Assessment: This is a 44-year-old gentleman with ongoing chronic alcohol use, pancreatitis, some neuropathy who presents the emergency department on 09/24/2024 for numbness in lower extremity from hips down with some weakness peripherally. Stated that he threw up 2 weeks prior to that. Patient has significant hypocalcemia as well as hypomagnesemia. MRI lumbar is unremarkable. Acute numbness over the bilateral lower extremity likely due to metabolic derangement neuropathy from his chronic ongoing alcohol use leading to pancreatitis. On examination patient's has areflexia in the lower extremity and has numbness from T12 down. I doubt this is GBS picture. Significant hypocalcemia with a calcium level of 5.3 and ionized calcium is 3.0 Significant hypomagnesemia of 0.5 Mild to moderate hyponatremia Folate deficiency Some component of neuropathy prior to this in which she has numbness of the head Chronic low back pain Suspicious for leg vein thrombosis on CT and patient is on heparin drip Ongoing chronic alcohol use and last alcohol use was about 5 days ago Tobacco use Plan: MRI of the thoracic spine but I doubt any lesion or pathology contributing to his symptoms other than was noted above I ordered TSH, hemoglobin A1c and thiamine level I started the patient on folic acid 1 mg daily Orthopedic surgery team is on board On thiamine 100 mg daily Is on Lyrica 150 mg 1 tablet twice daily. PT and OT are consulted Was counseled on alcohol cessation as well as tobacco cessation. Recommend EMG with nerve conduction study of the lowers as an outpatient then uppers. Recommend the patient to follow-up with a neurologist as an outpatient within 3 weeks. Will defer the rest of the medical management to primary and other specialist The plan discussed with the patient and the primary team nurse practitioner Thank for the consultation Dr. Mcclellan will resume neurology service tomorrow A.M. Time with Patient: Greater than 30
[2024-09-26 14:02] LABS: ALT 73 U/L (4-49); AST 249 U/L (17-59); African American GFR (CKD) >90 (>60 ml/min/1.73 sqM); Albumin 2.8 g/dL (3.5-5.0); Alkaline Phosphatase 263 U/L (38-126); Anion Gap 9 mmol/L; Blood Urea Nitrogen <2 mg/dL (9-20); Carbon Dioxide 25 mmol/L (22-30); Chloride 96 mmol/L (98-107); Glucose 198 mg/dL (74-99); Non-African American GFR(CKD) >90 (>60 ml/min/1.73 sqM); Sodium 130 mmol/L (137-145); Total Bilirubin 0.7 mg/dL (0.2-1.3); Total Protein 5.9 g/dL (6.3-8.2)
[2024-09-26 14:06] LABS: Calcium 6.4 mg/dL (8.4-10.2)
[2024-09-26] MEDS: THIAMINE 100 MG TAB PO SCH (14:30)
[2024-09-26] MEDS: FOLIC ACID 1 MG TAB PO SCH (14:30)
--- NOTE | 2024-09-26 15:11 | P.PN ---
Subjective Progress Note Date: 09/26/24 This is a 44-year-old male with medical history significant for chronic pancreatitis, chronic alcoholism, lower back pain, hiatal hernia, TIA, hypertension, gastroesophageal reflux disease, chronic nicotine use 1 pack/day smoker, marijuana use. Reports to drinking alcohol every day a couple beers a day. Patient comes in to the hospital after having a syncopal episode while going to the dentist yesterday. Patient states that he was feeling dizzy prior to the episode. He did fall and lose consciousness. Patient has been having abdominal pain with nausea and vomiting over the last week and feels that he was having a pancreas flareup. He additionally has been complaining of this numbness and tingling from the abdomen down to his toes and weakness in his lower extremities bilaterally. Was unable to perform a straight leg raise test without eliciting worsening pain to the lower back. He denies any saddle parasthesias or loss of bladder or bowel. He has no focal neurological deficits denies any facial droop slurring of the speech swallowing issues. He is not having any dizziness or lightheadedness currently no headache. No shortness of breath no chest pain. He has not been having any fever or chills. He does state that a few times over the last week while he has been vomiting he does note that this emesis may have been like coffee grounds but none currently. Initial blood work reveals a white blood cell count 14.8, hemoglobin 11.4 platelets of 385, sodium 129, potassium 3.4, BUN of less than 2 creatinine 0.31, lactic acid of 6.6 calcium of 5.3 ionized calcium of 3.0, magnesium of 0.5 AST of 60 ALT of 36 alk phos of 184 serum alcohol level was 44 on admit. Abdominal pelvis CT reveals findings most consistent with chronic pancreatitis with some edematous changes concerning for an acute on chronic pancreatitis. Decrease size of peripancreatic pseudocyst from prior examination. Largest is inferior to the gastric body. Large filling defect identified within the splenic vein extending towards the portal confluence most consistent with venous thrombosis. The remaining portal venous system is patent. Gastric and plantar changes from the surrounding pancreatic inflammatory changes. Hepatic steatosis. Trace perisplenic ascites. Patient received a dose of IV decadron while in the ER. He was started on IV heparin and admitted to the hospital under internal medicine. 09/26/2024 Patient is evaluated today in follow-up in the medical floor. He continues to report lower back pain and difficulty raising his legs. Lumbar MRI was unremarkable. Orthopedic spinal saw the patient and no further recommendations at this time from their standpoint. Neurology was consulted and recommending thoracic MRI if this is unremarkable the plan will be for patient to follow-up with a neurologist in 3 weeks and patient needs to undergo EMG testing of the bilateral lower extremities and uppers. Folate level was found to be less than 2.00. Vitamin B12 505. TSH of 0.756. Sodium level of 130, BUN of less than 2, creatinine of 0.27, calcium level of 6.4. Magnesium 1.5. LFTs are elevated REVIEW OF SYSTEMS: CONSTITUTIONAL: No fever, no malaise, no fatigue. HEENT: No recent visual problems or hearing problems. Denied any sore throat. CARDIOVASCULAR: No chest pain, orthopnea, PND, no palpitations, no syncope. PULMONARY: No shortness of breath, no cough, no hemoptysis. GASTROINTESTINAL: No diarrhea, no nausea, no vomiting, Reports abdominal pain. NEUROLOGICAL: No headaches, no weakness, no numbness. Reports lower back pain and lower extremity weakness, numbness and tingling PHYSICAL EXAMINATION: GENERAL: The patient is alert and oriented x3, not in any acute distress. Well developed, well nourished. HEENT: Pupils are round and equally reacting to light. EOMI. No scleral icterus. No conjunctival pallor. Normocephalic, atraumatic. No pharyngeal erythema. No thyromegaly. CARDIOVASCULAR: S1 and S2 present. No murmurs, rubs, or gallops. PULMONARY: Chest is clear to auscultation, no wheezing or crackles. ABDOMEN: Soft, nontender, nondistended, normoactive bowel sounds. No palpable organomegaly. MUSCULOSKELETAL: No joint swelling or deformity. EXTREMITIES: No cyanosis, clubbing, or pedal edema. NEUROLOGICAL: Gross neurological examination did not reveal any focal deficits. SKIN: No rashes. Assessment and Plan Splenic vein thrombosis Acute on chronic pancreatitis Syncope likely due to dehydration and volume depletion Nausea and vomiting from the pancreatitis Lactic acidosis from dehydration and vomiting Hyponatremia Hypocalcemia Hypomagnesemia Alcoholic hepatitis Parasthesias and lower extremity weakness /lower back pain Peripheral neuropathy Chronic alcohol use and impending withdrawal History of TIA Hypertension Gastroesophageal reflux disease Chronic nicotine use 1 pack per day smoker Marijuana use GI prophylaxis DVT prophylaxis IV heparin Full Code Plan Thoracic MRI Neurology consultation Patient will be transitioned to oral Eliquis patient will require oral anticoagulation for at minimum 3 months Resume lyrica Nicotine patch has been ordered Supplement calcium, magnesium Repeat BMP Continue IV ativan CIWA protocol PT/OT consultation The impression and plan of care has been dictated by Bere Brownlee, Nurse Practitioner as directed. Dr. Koby MD I have performed a history and physical examination and medical decision making of this patient, discussed the same with the dictator, and agree with the dictators assessment and plan as written, documented as a scribe. Based on total visit time, I have performed more than 50% of this visit. Objective - Vital Signs Vital signs: Vital Signs Temp 97.8 F 09/26/24 08:23 Pulse 92 09/26/24 14:00 Resp 18 09/26/24 14:00 BP 154/98 09/26/24 11:33 Pulse Ox 100 09/26/24 11:33 FiO2 Intake & Output 09/25/24 09/26/24 09/26/24 18:59 06:59 18:59 Intake Total 228.267 516 Output Total 325 1700 Balance -96.733 -1184 Weight 49.895 kg 51.5 kg 51.5 kg Intake: IV 40 Invasive Line 1 40 Intake, IV Titration 228.267 Amount Heparin Sod,Pork in 0.45% 228.267 NaCl 25,000 unit In 0.45 % NaCl 1 250ml.bag @ 18 UNITS/KG/HR 8.981 mls/hr IV .Q24H [facility] Rx#: [id number] Oral 476 Output: Urine 325 1700 Other: Voiding Method Toilet - Labs CBC & Chem 7: 09/26/24 07:00 09/26/24 13:00 Labs: Abnormal Lab Results - Last 24 Hours (Table) 09/24/24 09/26/24 09/26/24 Range/Units 23:26 07:00 07:00 RBC 2.89 L (4.30-5.90) m/uL Hgb 9.5 L D (13.0-17.5) gm/dL Hct 30.1 L (39.0-53.0) % MCV 104.2 H (80.0-100.0) fL RDW 18.4 H (11.5-15.5) % APTT 43.3 H (22.0-30.0) sec Sodium (137-145) mmol/L Chloride (98-107) mmol/L BUN (9-20) mg/dL Creatinine (0.66-1.25) mg/dL Glucose (74-99) mg/dL Calcium (8.4-10.2) mg/dL Magnesium (1.6-2.3) mg/dL AST (17-59) U/L ALT (4-49) U/L Alkaline Phosphatase (38-126) U/L Total Protein (6.3-8.2) g/dL Albumin (3.5-5.0) g/dL Folate <2.00 L (4.40-31.00) ng/mL 09/26/24 09/26/24 Range/Units 07:00 13:00 RBC (4.30-5.90) m/uL Hgb (13.0-17.5) gm/dL Hct (39.0-53.0) % MCV (80.0-100.0) fL RDW (11.5-15.5) % APTT (22.0-30.0) sec Sodium 130 L (137-145) mmol/L Chloride 96 L (98-107) mmol/L BUN <2 L (9-20) mg/dL Creatinine 0.27 L (0.66-1.25) mg/dL Glucose 198 H (74-99) mg/dL Calcium 6.4 L* (8.4-10.2) mg/dL Magnesium 1.5 L (1.6-2.3) mg/dL AST 249 H (17-59) U/L ALT 73 H (4-49) U/L Alkaline Phosphatase 263 H (38-126) U/L Total Protein 5.9 L (6.3-8.2) g/dL Albumin 2.8 L (3.5-5.0) g/dL Folate (4.40-31.00) ng/mL Assessment and Plan Time with Patient: Less than 30
[2024-09-26] MEDS: CHOLECALCIFEROL 25 MCG (1000 IU) TABLET PO SCH (15:13)
[2024-09-26] MEDS: CALCIUM GLUCONATE IN NACL 1 GM in SALINE 1 100ML.BAG IVPB ONE (16:06)
[2024-09-26] MEDS: Apixaban Initiation Dose--VTE 5 MG TAB PO SCH (20:00)
[2024-09-27] MEDS: ACETAMINOPHEN TAB 325 MG TAB PO PRN (09:11)
--- NOTE | 2024-09-27 09:12 | P.PN ---
Progress Note - Text Progress Note Date: 09/27/24 The patient is seen and examined at bedside. He feels of symptoms and made some improvement over the past couple of days. He feels somewhat stronger in his legs but still some weakness particularly proximally. He is using the bathroom adequately. He is not having changes in bowel or bladder function. He denies any chest pain. Denies any new pain in his lower extremities. On exam he is remained afebrile. He is breathing comfortably on room air. He is conversant In his lower extremities he has 5 out of 5 strength with dorsiflexion plantarflexion EHL. He is able to bend his knees easily and he can hold his knee in extension with about 3+ out of 5 strength. His hip flexion is about 3 out of 5 strength bilaterally. He has no hyperreflexia. There is no saddle paresthesia. His MRI of his lumbar spine shows some diffuse degenerative changes but no specifics herniation or stenosis. There is no evidence of any cauda equina syndrome at his lumbar spine. He is not having instability of his lumbar spine Assessment and plan Bilateral lower extremity weakness, gradually improving Chronic alcohol abuse comfortable with Multiple abnormal labs Increased pancreas and liver enzymes the patient is scheduled for thoracic MRI today as per neurology and I agree with this. He does not have any evidence of any significant stenosis at his lumbar spine to account for his symptoms and we do not have any surgical plans for his lumbar spine at all. Will have further updates once the MRI is completed which is scheduled for later this morning. It is okay for the patient to try to mobilize increase his activity with assistance and with physical therapy. He is continuing his management for his multiple abnormal enzymes and chronic alcohol abuse. I tried to discuss this with him and the association with his lab work as well as the possible symptoms he is having in his lower extremities. We will continue to follow him and have further recommendations once we see the new thoracic MRI
[2024-09-27 12:53] LABS: ALT 96 U/L (10-49); AST 178 U/L (14-35); Albumin 2.8 g/dL (3.8-4.9); Albumin/Globulin Ratio 1.08 Ratio (1.60-3.17); Alkaline Phosphatase 223 U/L (41-126); BUN/Creat Ratio <11.67 Ratio (12.00-20.00); Blood Urea Nitrogen <3.5 mg/dL (9.0-27.0); Calcium 7.3 mg/dL (8.7-10.3); Carbon Dioxide 24.8 mmol/L (21.6-31.8); Chloride 98 mmol/L (96-109); Globulin 2.6 g/dL (1.6-3.3); Glucose 192 mg/dL (70-110); Magnesium 1.6 mg/dL (1.5-2.4); Potassium 4.8 mmol/L (3.5-5.5); Sodium 132 mmol/L (135-145); Total Bilirubin 0.3 mg/dL (0.3-1.2); Total Protein 5.4 g/dL (6.2-8.2)
--- NOTE | 2024-09-27 13:13 | MR ---
INDICATION: Patient age:Male; 44 years old; Reason for study: lower extremity weakness; PHH. COMPARISON: MR lumbar spine 09/26/2024, thoracic spine radiographs 09/25/2024. TECHNIQUE: Multi planar, multi sequence imaging was performed of the thoracic spine before and after the uneventful administration of 5 mL of Gadobutrol intravenously . FINDINGS: The thoracic vertebral bodies have preserved heights and alignment. The osseous structure have normal signal intensity. Thoracic spinal cord appears unremarkable. No abnormal STIR signal. There is no ev idence of extradural defects or central spinal canal narrowing at any thoracic vertebral body level. Minimal disc desiccation of the mid thoracic spine disc. No abnormal contrast enhancement. IMPRESSION: 1. No suspicious abnormality to account for patient's symptoms. No abnormal contrast enhancement. 2. No significant degenerative disc disease. [facility], , 09/27/2024 1:11 PM
[2024-09-27] MEDS: MAGNESIUM SULFATE-D5W PMX 1 GM in DEXTROSE/WATER 1 100ML.BAG IVPB SCH (14:08)
[2024-09-27 14:14] VITALS: RESP 16
--- NOTE | 2024-09-27 15:13 | P.PN ---
Subjective Progress Note Date: 09/27/24 The patient is a 44-year-old male who is seen in neurologic follow-up, in cross coverage for Dr. Jay, on September 27, 2024, in collaboration with Jeannie Ruelas, via teleneurology. The patient reports that he has been having pain in his legs. He describes it as a painful numbness. He says that the numbness started in his belly. He points to the umbilical region. He says this numbness and then extended down to involve both legs including his feet, dorsum and soles. He makes a point of saying that there is no numbness involving his groin region. The numbness also involves his toes. The patient feels that the numbness in his feet is worse today. He was however able to stand and walk with physical therapy yesterday. He states that he used a walker. This is reportedly a vast improvement. MRI of the lumbar spine was performed yesterday. There is no reported evidence of significant change which would account for the patient's symptoms. There is no stenosis or disc herniation. MRI of the thoracic spine is to be performed today. For further details, please see Dr. Jay's original neurologic consultation Objective - Vital Signs Vital signs: Vital Signs Temp 97.5 F L 09/27/24 08:00 Pulse 110 H 09/27/24 08:00 Resp 17 09/27/24 08:00 BP 137/95 09/27/24 08:00 Pulse Ox 98 09/27/24 08:00 FiO2 Intake & Output 09/26/24 09/27/24 09/27/24 18:59 06:59 18:59 Intake Total 516 Output Total 1700 1900 Balance -1184 -1900 Weight 51.5 kg 51 kg Intake: IV 40 Invasive Line 1 40 Oral 476 Output: Urine 1700 1900 Other: Voiding Method Toilet # Voids 5 - Exam General: The patient is reclining in the bed. He is well-nourished, well- developed and in no acute distress. HEENT: Head is atraumatic, normocephalic. Fundus not visualized. There is no scleral icterus. Mucous members are moist. Neurological examination Mental status: Patient awake, alert and oriented x 3. His speech is clear. There is no dysarthria or aphasia Cranial nerves: 2-12 grossly intact Motor: Upper extremity strength is 5/5 bilaterally. Lower extremity strength (right/left) hip flexors 3/3. Hamstrings and quadriceps 4/4. Ankle plantar and dorsiflexors 5/5. Deep tendon reflexes: 2+/4+ in the bilateral upper extremities. Right patellar reflex 1+/4+. Left patellar reflex is absent. - Labs CBC & Chem 7: 09/26/24 07:00 09/27/24 06:52 Labs: Abnormal Lab Results - Last 24 Hours (Table) 09/26/24 Range/Units 13:00 Sodium 130 L (137-145) mmol/L Chloride 96 L (98-107) mmol/L BUN <2 L (9-20) mg/dL Creatinine 0.27 L (0.66-1.25) mg/dL Glucose 198 H (74-99) mg/dL Calcium 6.4 L* (8.4-10.2) mg/dL AST 249 H (17-59) U/L ALT 73 H (4-49) U/L Alkaline Phosphatase 263 H (38-126) U/L Total Protein 5.9 L (6.3-8.2) g/dL Albumin 2.8 L (3.5-5.0) g/dL Assessment and Plan Assessment: 1. Acute numbness over the bilateral lower extremities likely due to metabolic derangement neuropathy from his chronic ongoing alcohol use leading to pancreati tis. On examination patient's has areflexia in the lower extremity and has numbness from T12 down. In addition, there is proximal >distal weakness. MRI of the thoracic spine has been completed at the time of this note. There is no reported evidence of spinal cord compression or significant disc herniation. 2. This is unlikely to be GBS 3. Significant hypocalcemia with a calcium level of 5.3 and ionized calcium is 3.0 4. Significant hypomagnesemia of 0.5 5. Mild to moderate hyponatremia 6. Folate deficiency 7. Some component of neuropathy prior to this in which she has numbness of the head 8. Chronic low back pain 9. Suspicious for leg vein thrombosis on CT and patient is on heparin drip 10. Ongoing chronic alcohol use and last alcohol use was about 5 days ago 11. Tobacco use Plan: 1. Appreciate orthopedic surgery input 2. Recommend outpatient EMG with nerve conduction studies 3. Physical therapy for strengthening 4. Agree with continuation of thiamine and Lyrica 5. Agree with cessation of alcohol and tobacco use 6. Based on physical therapy recommendations, the patient may require rehab placement Time with Patient: Greater than 30 (40 minutes were spent caring for this patient today including, obtaining a history, examining the patient, reviewing imaging, chart documentation, labs, placing orders and creating this note)
[2024-09-27] MEDS: CALCIUM GLUCONATE IN NACL 1 GM in SALINE 1 100ML.BAG IVPB ONE (15:16)
[2024-09-27 17:49] VITALS: BP 120/72; PULSE 111; TEMP 97.6
--- NOTE | 2024-09-30 09:10 | P.DS ---
Providers Date of admission: 09/25/24 00:00 Attending physician: Baron Groves Consults: 09/25/24 13:06 Consult Physician Routine Consulting Provider: Lui Aquino Consult Reason/Comments: lower back pain, weakness and parasthesias Do you want consulting provider notified?: Yes 09/26/24 09:35 Consult Physician Urgent Consulting Provider: Arturo Jay Consult Reason/Comments: New onset lower extremity weakness and numbness Do you want consulting provider notified?: Yes Primary care physician: Sunny Gonzáles [facility] Course: Final Diagnosis Splenic vein thrombosis Acute on chronic pancreatitis Syncope likely due to dehydration and volume depletion Nausea and vomiting from the pancreatitis Lactic acidosis from dehydration and vomiting Hyponatremia Hypocalcemia Hypomagnesemia Alcoholic hepatitis Parasthesias and lower extremity weakness /lower back pain this is likely due to the electrolyte abnormality Peripheral neuropathy Chronic alcohol use and impending withdrawal History of TIA Hypertension Gastroesophageal reflux disease Chronic nicotine use 1 pack per day smoker Marijuana use Discharge Disposition Patient stable for discharge home. Patient to follow-up with a neurologist on an outpatient basis patient is recommended to follow-up with a neuromuscular specialist for EMG testing of the lower extremities. Patient to follow-up with orthopedic spinal surgeon. Patient to continue folic acid supplementation on discharge. Recommend to avoid alcohol. Follow-up with his PCP Dr. Sunny Gonzáles in 1 to 2 days. Hospital Course This is a 44-year-old male with medical history significant for chronic pancreatitis, chronic alcoholism, lower back pain, hiatal hernia, TIA, hypertension, gastroesophageal reflux disease, chronic nicotine use 1 pack/day smoker, marijuana use. Reports to drinking alcohol every day a couple beers a day. Patient comes in to the hospital after having a syncopal episode while going to the dentist yesterday. Patient states that he was feeling dizzy prior to the episode. He did fall and lose consciousness. Patient has been having abdominal pain with nausea and vomiting over the last week and feels that he was having a pancreas flareup. He additionally has been complaining of this numbness and tingling from the abdomen down to his toes and weakness in his lower extremities bilaterally. Was unable to perform a straight leg raise test without eliciting worsening pain to the lower back. He denies any saddle parasthesias or loss of bladder or bowel. He has no focal neurological deficits denies any facial droop slurring of the speech swallowing issues. He is not having any dizziness or lightheadedness currently no headache. No shortness of breath no chest pain. He has not been having any fever or chills. He does state that a few times over the last week while he has been vomiting he does note that this emesis may have been like coffee grounds but none currently. Initial blood work reveals a white blood cell count 14.8, hemoglobin 11.4 platelets of 385, sodium 129, potassium 3.4, BUN of less than 2 creatinine 0.31, lactic acid of 6.6 calcium of 5.3 ionized calcium of 3.0, magnesium of 0.5 AST of 60 ALT of 36 alk phos of 184 serum alcohol level was 44 on admit. Abdominal pelvis CT reveals findings most consistent with chronic pancreatitis with some edematous changes concerning for an acute on chronic pancreatitis. Decrease size of peripancreatic pseudocyst from prior examination. Largest is inferior to the gastric body. Large filling defect identified within the splenic vein extending towards the portal confluence most consistent with venous thrombosis. The remaining portal venous system is patent. Patient received a dose of IV decadron while in the ER. He was started on IV heparin and admitted to the hosp [facility] under internal medicine. Patient continued to have significant lower back pain with radiation into the legs and neurology and orthopedic spinal surgery was consulted. Neurology felt that patient's reflexes were diminished in his bilateral lower extremities. Lumbar MRI was unremarkable. Patient underwent thoracic MRI which was also essentially unremarkable with no suspicious abnormality to account for patient's symptoms. Patient did have improvement was able to get up out of bed and ambulate with physical therapy and his electrolytes have significantly improved. Sodium level is 132 BUN of less than 3.5, creatinine of 0.3 calcium of 7.3 AST ALT alk phos remain elevated but stable. Patient's TSH was normal at 0.756. Lipase was normal at 120 patient's B12 level was 505 folate was less than 2 serum alcohol was 44 on admission. Patient was recommended to follow-up with a neuromuscular specialist for EMG testing on an outpatient basis. Patient was also discharged on a Medrol [place]. Patient was transition to oral Eliquis to start at 10 mg twice daily for the next 6 days and transition to 5 mg twice daily for the splenic vein thrombosis. Patient recommended for anticoagulation therapy for at minimum 3 months but will defer this to his follow-up with his PCP Dr. Gonzáles. Please see medication reconciliation for a list of current medications. Thank you for allowing us to participate in the care of this patient. The impression and plan of care has been dictated by Bere Brownlee, Nurse Practitioner as directed. Dr. Koby MD I have performed a history and physical examination and medical decision making of this patient, discussed the same with the dictator, and agree with the dictators assessment and plan as written, documented as a scribe. Based on total visit time, I have performed more than 50% of this visit. Patient Condition at Discharge: Stable Plan - Discharge Summary Discharge Rx Participant: No New Discharge Prescriptions: New Folic Acid 1 mg PO DAILY #30 tab Magnesium Oxide [Brownlee] 500 mg PO DAILY #7 tablet Thiamine [Vitamin B-1] 100 mg PO DAILY #30 tab Cholecalciferol [Vitamin D3 (25 Mcg = 1000 Iu)] 50 mcg PO DAILY #30 tab Apixaban [Eliquis Starter Pack (for VTE)] 5 - 10 mg PO DIRECTED 30 Days #1 each methylPREDNISolone [Medrol Dose Pack] 0 mg PO DIRECTED #1 packet Continue Lipase/Protease/Amylase [[place] Dr 36,000 Unit Capsule] 3 cap PO DAILY Omeprazole 40 mg PO DAILY Pregabalin [Lyrica] 150 mg PO BID Discharge Medication List Omeprazole 40 mg PO DAILY 08/02/23 [History] Lipase/Protease/Amylase [[place] Dr 36,000 Unit Capsule] 3 cap PO DAILY 09/25/24 [History] Pregabalin [Lyrica] 150 mg PO BID 09/25/24 [History] Apixaban [Eliquis Starter Pack (for VTE)] 5 - 10 mg PO DIRECTED 30 Days #1 each 09/27/24 [Rx] Cholecalciferol [Vitamin D3 (25 Mcg = 1000 Iu)] 50 mcg PO DAILY #30 tab 09/27/24 [Rx] Folic Acid 1 mg PO DAILY #30 tab 09/27/24 [Rx] Magnesium Oxide [Brownlee] 500 mg PO DAILY #7 tablet 09/27/24 [Rx] Thiamine [Vitamin B-1] 100 mg PO DAILY #30 tab 09/27/24 [Rx] methylPREDNISolone [Medrol Dose Pack] 0 mg PO DIRECTED #1 packet 09/27/24 [Rx] Follow up Appointment(s)/Referral(s): Lui Aquino DO [Doctor of Osteopathic Medicine] - 1 Week Dinesh Hutchinson MD [Medical Doctor] - 1 Week None,Stated [REFERRING] - 1-2 days Sunny Gonzáles MD [Primary Care Provider] - 1 Week Ambulatory/Diagnostic Orders: Comprehensive Metabolic Panel [LAB.AMB] Time Frame: 3 Days, Location: None Selected Magnesium [LAB.AMB] Location: None Selected Activity/Diet/Wound Care/Special Instructions: Need to follow up with neurology outpatient for EMG testing of the lower and upper extremites Avoid alcohol Recommend smoking cessation Discharge/Stand Alone Forms: AA Meetings [facility], Who Do I Call?, Community Resources, Outpatient Counseling, Inp Substance Abuse Facilities, Personal Industrial Health Engineer Discharge Disposition: HOME WITH HOME HEALTH SERVICES
== END 2024-09-27 19:05 | disposition home health service (06) | DRG 775 ==
LOC: EC 19:56 → 3SCARD 09-25 → 4SSUR 09-26 14:50
PROVIDERS: ADMIT Hospitalist; ATTEND Hospitalist
DX: F10.239 Alcohol dependence with withdrawal, unspecified (principal); E87.1 Hypo-osmolality and hyponatremia; M54.50 Low back pain, unspecified; E86.0 Dehydration; E87.20 Acidosis, unspecified; K85.90 Acute pancreatitis without necrosis or infection, unspecified; K86.1 Other chronic pancreatitis; E83.51 Hypocalcemia; E83.42 Hypomagnesemia; K70.10 Alcoholic hepatitis without ascites; G62.9 Polyneuropathy, unspecified; G89.29 Other chronic pain; I10 Essential (primary) hypertension; K21.9 Gastro-esophageal reflux disease without esophagitis; F17.210 Nicotine dependence, cigarettes, uncomplicated; R29.6 Repeated falls; M43.16 Spondylolisthesis, lumbar region; M48.54XA Collapsed vertebra, not elsewhere classified, thoracic region, initial encounter for fracture; I82.890 Acute embolism and thrombosis of other specified veins; E53.8 Deficiency of other specified B group vitamins; E88.9 Metabolic disorder, unspecified; Y90.2 Blood alcohol level of 40-59 mg/100 ml; Z86.73 Personal history of transient ischemic attack (TIA), and cerebral infarction without residual deficits
CPT/HCPCS: 36415; 72070; 72100; 72148; 72157; 74177; 80053; 80320; 82330; 82607; 82652; 82746; 83036; 83605; 83690; 83735; 84100; 84443; 85025; 85027; 85730; 93005; 96361; 96365; 96366; 96368; 96372; 96375; 96376; 99291

== ENCOUNTER 2024-12-24 07:01 | Inpatient (IN) | payer OTHER ==
[2024-12-24 07:13] LABS: Glucose,Whole Blood 356 mg/dL (70-110)
[2024-12-24] MEDS ORDERED: LORazepam 1 MG/0.5 ML VIAL IV PRN (07:15)
[2024-12-24 07:27] LABS: Basophils # (A) 0.02 10*3/uL (0.00-0.10); Basophils % (A) 0.1 %; Eosinophils # (A) 0.00 10*3/uL (0.04-0.35); Eosinophils % (A) 0.0 %; HCT 31.5 % (39.6-50.0); HGB 10.7 g/dL (13.0-17.0); Lymphocytes # (A) 1.35 10*3/uL (0.90-5.00); Lymphocytes % (A) 9.8 %; MCH 29.8 pg (27.0-32.0); MCHC 34.0 g/dL (32.0-37.0); MCV 87.7 fL (80.0-97.0); Monocytes # (A) 1.35 10*3/uL (0.20-1.00); Monocytes % (A) 9.8 %; Neutrophils # (A) 10.86 10*3/uL (1.80-7.70); Neutrophils % (A) 78.6 %; Platelet Count 356 10*3/uL (140-440); RBC 3.59 10*6/uL (4.40-5.60); RDW 15.2 % (11.5-14.5); WBC 13.81 10*3/uL (4.50-10.00)
--- NOTE | 2024-12-24 07:27 | XR ---
EXAMINATION TYPE: XR chest 1V portable DATE OF EXAM: 12/24/2024 7:17 AM COMPARISON: None. CLINICAL INDICATION: Male, 44 years old with history of ams, TECHNIQUE: XR chest 1V portable view(s) obtained. FINDINGS: The heart size is normal. The pulmonary vasculature is normal. The lungs are clear. IMPRESSION: 1. No acute pulmonary process. [facility], , 12/24/2024 7:24 AM
[2024-12-24] MEDS: SODIUM CHLORIDE 0.9% 1,000 ML IV ONE (07:35)
[2024-12-24 07:41] LABS: African American GFR (CKD) >90 (>60 ml/min/1.73 sqM); Albumin 2.2 g/dL (3.5-5.0); Alkaline Phosphatase 209 U/L (38-126); Anion Gap 18 mmol/L; Blood Urea Nitrogen 5 mg/dL (9-20); Carbon Dioxide 16 mmol/L (22-30); Chloride 101 mmol/L (98-107); Glucose 339 mg/dL (74-99); Lipase 81 U/L (23-300); Non-African American GFR(CKD) >90 (>60 ml/min/1.73 sqM); Sodium 135 mmol/L (137-145); Total Protein 4.9 g/dL (6.3-8.2)
[2024-12-24 07:44] LABS: INR 1.9 (<1.2); Partial Thromboplastin Time 26.4 sec (22.0-30.0); Prothrombin Time 19.8 sec (10.0-12.5)
[2024-12-24] MEDS: LORazepam 1 MG/0.5 ML VIAL IV PRN (07:45)
[2024-12-24 07:47] LABS: AST 223 U/L (17-59)
[2024-12-24] MEDS: DEXTROSE 5% IN WATER 100 ML with AMIODARONE 150 MG IV ONE (07:47)
[2024-12-24 07:48] LABS: NT-Pro-B-Type Natriuretic Pept 329 pg/mL
[2024-12-24 07:49] LABS: ALT 55 U/L (4-49)
--- NOTE | 2024-12-24 07:49 | ED ---
General Adult HPI - General Chief complaint: Cardiac Arrest/CPR Stated complaint: Cardiac Arrest Time Seen by Provider: 12/24/24 07:03 Source: patient, RN notes reviewed, old records reviewed Mode of arrival: EMS - History of Present Illness Initial comments: Patient is a 44-year-old male with past medical history remarkable for splenic vein thrombosis, pancreatitis, alcoholic hepatitis, alcohol abuse who is on Eliquis as well as Lyrica presents emergency department for altered mental status as well as cardiac arrest. Apparently EMS was called to patient's home f or altered mental status. When they arrived, patient was slightly more lethargic and had a slight seizure-like episode and went unresponsive. When they connected to the monitor they found he was in ventricular tachycardia. They started CPR and administered 1 shock. No medications were administered. Patient had ROSC. This entire episode seem to have lasted less than 1 to 2 minutes. He has been alert and oriented x 4 since. Apparently patient has been throwing up for the last 2 to 3 days. Has a history of pancreatitis. Unknown if this is related to it. States he is more or less been compliant with his medications and may have thrown up his dose last night. Currently has no complaints. Denies any chest pain or abdominal pain. Denies any current nausea or vomiting. States his last drink was sometime last night. Does have a history of severe alcohol drawl's. Presents for further evaluation at this time. States that over the last few days he has had no chest pain. Denies any significant cardiac history.Patient denies any head trauma or head injury. - Related Data Home Medications Medication Instructions Recorded Confirmed Omeprazole 40 mg PO DAILY 08/02/23 12/24/24 Lipase/Protease/Amylase [Man Ortega 3 cap PO TID-W/MEALS 09/25/24 12/24/24 36,000 Unit Capsule] Apixaban [Eliquis] 5 mg PO BID 12/24/24 12/24/24 Pregabalin [Lyrica] 200 mg PO TID 12/24/24 12/24/24 Allergies Allergy/AdvReac Type Severity Reaction Status Date / Time No Known Allergies Allergy Verified 12/24/24 11:38 Review of Systems ROS Statement: Those systems with pertinent positive or pertinent negative responses have been documented in the HPI. Review of Systems: CONST: Denies fever EYES: Denies blurry vision ENT: Denies nasal congestion C/V: Denies Chest pain RESP: Denies shortness of breath GI: Denies abdominal pain : Denies dysuria SKIN: Denies rash. MSK: Denies joint pain. NEURO: Denies headache ROS Other: All systems not noted in ROS Statement are negative. Past Medical History Past Medical History: CVA/TIA, GERD/Reflux, Hearing Disorder / Deafness, Hyperte nsion, Musculoskeletal Disorder Additional Past Medical History / Comment(s): TIA, States needs MRI of brain. "High heart rate recently from the pain". Hiatal hernia. Chronic pancreatitis/pain. 4 slipped discs in back. Sore muscles. Mild hearing loss. History of Any Multi-Drug Resistant Organisms: None Reported Additional Past Surgical History / Comment(s): "Pseudocyst removed from stomach". Past Anesthesia/Blood Transfusion Reactions: No Reported Reaction Past Psychological History: No Psychological Hx Reported Smoking Status: Current every day smoker Past Alcohol Use History: Abuse Past Drug Use History: Marijuana - Past Family History Father Family Medical History: Cancer Additional Family Medical History / Comment(s): Colon cancer. General Exam - General Exam Comments Initial Comments: General: Appears in no acute distress. HEAD: Normal with no signs of head trauma. EYES: PERRLA, EOMI, conjunctiva normal, no discharge. Pupils are 2 to 3 mm and equal bilaterally. ENT: Hearing grossly intact, normal oropharynx. Dry mucous membranes. RESPIRATORY: Clear breath sounds bilaterally. No wheezes, rales, or rhonchi. C/V: Regular rate and rhythm. S1 and S2 auscultated, no edema, peripheral pulses 2+ and intact throughout ABD: Abd is soft, nontender, nondistended EXT: Normal range of motion, no obvious deformity SKIN: No rashes or lesions observed on exposed skin. NEURO: Alert and oriented x 4. Cranial nerves II-XII intact. No focal sensory or strength deficits. GCS of 15. Appears to be mild alcohol withdrawals. Course Vital Signs 12/24/24 12/24/24 12/24/24 07:04 07:10 07:53 Temperature 98.2 F Pulse Rate 115 H 112 H Pulse Rate [ Right Pulse Oximetery] Respiratory 20 22 Rate Blood Pressure 104/91 105/76 Blood Pressure [Right Arm Supine] O2 Sat by Pulse 99 Oximetry 12/24/24 12/24/24 12/24/24 08:52 09:04 09:40 Temperature 98.0 F Pulse Rate 108 H 102 H 121 H Pulse Rate [ Right Pulse Oximetery] Respiratory 22 20 20 Rate Blood Pressure 92/66 99/77 98/76 Blood Pressure [Right Arm Supine] O2 Sat by Pulse 100 98 100 Oximetry 12/24/24 12/24/24 12/24/24 09:53 10:17 13:04 Temperature 98.1 F 98.0 F Pulse Rate 110 H 93 Pulse Rate [ 118 H 93 Right Pulse Oximetery] Respiratory 22 22 20 Rate Blood Pressure 94/71 91/70 Blood Pressure 98/76 91/70 [Right Arm Supine] O2 Sat by Pulse 100 100 Oximetry 12/24/24 12/24/24 14:21 15:00 Temperature 98.1 F Pulse Rate 101 H Pulse Rate [ 93 Right Pulse Oximetery] Respiratory 20 22 Rate Blood Pressure 93/72 Blood Pressure 100/72 [Right Arm Supine] O2 Sat by Pulse 98 Oximetry Medical Decision Making - Medical Decision Making Was pt. sent in by a medical professional or institution (, PA, FOOD SAFETY OFFICER, urgent care, hospital, or [facility]...) When possible be specific @ -No Did you speak to anyone other than the patient for history (EMS, parent, family, police, friend...)? What history was obtained from this source @ -Spoke with EMS who provided the history of ventricular tachycardia, shock, very brief episode of cardiac arrest. Stated they provide no medications. The episode was very brief as they had time to start CPR and shocked him with return of spontaneous circulation's. Did you review nursing and triage notes (agree or disagree)? Why? @ -I reviewed and agree with nursing and triage notes Were old charts reviewed (outside hosp., previous admission, EMS record, old EKG, old radiological studies, urgent care reports/EKG's, [facility] records)? Report findings @ -No old charts were reviewed Differential Diagnosis (chest pain, altered mental status, abdominal pain women, abdominal pain men, vaginal bleeding, weakness, fever, dyspnea, syncope, headache, dizziness, GI bleed, back pain, seizure, CVA, palpatations, mental health, musculoskeletal)? @ -Differential Altered Mental Status: Hypoglycemia, DKA, hypercapnia, ETOH, overdose, CO poisoning, trauma, myxedema coma, HTN encephalopathy, infection, encephalitis, psychosis, intercranial hemorrhage, hepatic encephalopathy, meningitis, CVA, this is not meant to be an all-inclusive list. Also includes cardiac arrest, electrolyte abnormality, alcohol withdrawals. EKG interpreted by me (3pts min.). @ -As above X-rays interpreted by me (1pt min.). @ -Chest x-ray shows no obvious acute cardiopulmonary process. CT interpreted by me (1pt min.). @ -CT brain, chest abdomen pelvis negative for any obvious acute process other than colitis seen on CT abdomen pelvis that is uncomplicated. Chronic pancreatitis present. CT brain shows no obvious acute intracranial process or injury. U/S interpreted by me (1pt. min.). @ -None done What testing was considered but not performed or refused? (CT, X-rays, U/S, labs)? Why? @ -None What meds were considered but not given or refused? Why? @ -None Did you discuss the management of the patient with other professionals (professionals i.e. , PA, FOOD SAFETY OFFICER, lab, RT, psych nurse, psychiatric social worker supervisor, dealer relationship manager, teacher, police patrol officer, briefcase sewer)? Give summary @ - I did speak with cardiology Dr. Oneil who evaluate the patient at bedside and was in agreement the plan. I spoke with Dr. Portillo of ICU who accepted the admission to the ICU. I spoke with the admitting provider, Dr. Groves who accepted the admission. Was smoking cessation discussed for >3mins.? @ -No Was critical care preformed (if so, how long)? @ -Yes, 50 minutes Were there social determinants of health that impacted care today? How? (Homelessness, low income, unemployed, alcoholism, drug addiction, transportation, low edu. Level, literacy, decrease access to med. care, [facility] [facility], rehab)? @ -No Was there de-escalation of care discussed even if they declined (Discuss DNR or withdrawal of care, Hospice)? DNR status @ -No What co-morbidities impacted this encounter? (DM, HTN, Smoking, COPD, CAD, Cancer, CVA, ARF, Chemo, Hep., AIDS, mental health diagnosis, sleep apnea, morbid obesity)? @ -Splenic thrombosis on Eliquis alcohol abuse with history of withdrawal Was patient admitted / discharged? Hospital course, mention meds given and route, prescriptions, significant lab abnormalities, going to OR and other pertinent info. @ -Patient presents emergency department status post brief cardiac arrest episode. Has been having nausea and vomiting for the last few days. History of alcohol abuse with cirrhosis, alcohol withdrawals, as well as splenic thrombosis. The cardiac arrest seems to have been extremely brief, lasting at most 1 to 2 minutes as EMS was only able to start CPR and provide defibrillation for the patient. No medications were administered. Patient currently has no complaints. Mildly tachycardic. Presents for further evaluation at this time. EKG shows junctional rhythm with no signs of acute ischemia.CT imaging negative for any obvious acute process. Labs remarkable for a hypokalemia of 2.3, a hypocalcemia of 4.1, hypomagnesemia of 0.5. Chronically elevated LFTs. Patient administered an aspirin due to the cardiac arrest. Vitals are within acceptable limits. He is doing well on the amiodarone. Initial ammonia was hemolyzed and is unreliable. I will repeat and see where we are at. I discussed results with the patient. His is ventricular tachycardia arrest likely secondary to electrolyte abnormalities. Patient will be admitted. I did speak with cardiology Dr. Oneil who evaluate the patient at bedside and was in agreement the plan. I spoke with Dr. Portillo of ICU who accepted the admission to the ICU. I spoke with the admitting provider, Dr. Groves who accepted the admission. Undiagnosed new problem with uncertain prognosis? @ -No Drug Therapy requiring intensive monitoring for toxicity (Heparin, Nitro, Insulin, Cardizem)? @ -No Were any procedures done? @ -No Diagnosis/symptom? @ -Ventricular tachycardia cardiac arrest, hypomagnesemia, hypokalemia, flatus, alcohol abuse Acute, or Chronic, or Acute on Chronic? @ -Acute Uncomplicated (without systemic symptoms) or Complicated (systemic symptoms)? @ -Complicated Side effects of treatment? @ -None Exacerbation, Progression, or Severe Exacerbation] @ -No Poses a threat to life or bodily function? @ -Yes - Lab Data Result diagrams: 12/24/24 07:15 12/24/24 07:15 Lab Results 12/24/24 12/24/24 12/24/24 Range/Units 07:10 07:15 07:15 WBC 13.81 H (4.50-10.00) 10*3/uL RBC 3.59 L (4.40-5.60) 10*6/uL Hgb 10.7 L (13.0-17.0) g/dL Hct 31.5 L (39.6-50.0) % MCV 87.7 (80.0-97.0) fL MCH 29.8 (27.0-32.0) pg MCHC 34.0 (32.0-37.0) g/dL Plt Count 356 (140-440) 10*3/uL MPV 9.9 (9.5-12.2) fL Immature Gran % (Auto) 1.7 % Neutrophils % 78.6 % Lymphocytes % 9.8 % Monocytes % 9.8 % Eosinophils % 0.0 % Basophils % 0.1 % Immature Gran # 0.23 H (0.00-0.04) 10*3/uL Neutrophils # 10.86 H (1.80-7.70) 10*3/uL Lymphocytes # 1.35 (0.90-5.00) 10*3/uL Monocytes # 1.35 H (0.20-1.00) 10*3/uL Eosinophils # 0.00 L (0.04-0.35) 10*3/uL Basophils # 0.02 (0.00-0.10) 10*3/uL PT 19.8 H (10.0-12.5) sec INR 1.9 H (<1.2) APTT 26.4 (22.0-30.0) sec Sodium (137-145) mmol/L Potassium (3.5-5.1) mmol/L Chloride (98-107) mmol/L Carbon Dioxide (22-30) mmol/L Anion Gap mmol/L BUN (9-20) mg/dL Creatinine (0.66-1.25) mg/dL Est GFR (CKD-EPI)AfAm (>60 ml/min/1.73 sqM) Est GFR (CKD-EPI)NonAf (>60 ml/min/1.73 sqM) Glucose (74-99) mg/dL POC Glucose (mg/dL) 356 H (70-110) mg/dL POC Glu Cigar Making Supervisor ID Phyllis Castrejon Calcium (8.4-10.2) mg/dL Magnesium (1.6-2.3) mg/dL Total Bilirubin (0.2-1.3) mg/dL AST (17-59) U/L ALT (4-49) U/L Alkaline Phosphatase (38-126) U/L Ammonia (<30) umol/L Troponin I (0.000-0.034) ng/mL NT-Pro-B Natriuret Pep pg/mL Total Protein (6.3-8.2) g/dL Albumin (3.5-5.0) g/dL Lipase (23-300) U/L Serum Alcohol mg/dL Influenza Type A (PCR) (Not Detectd) Influenza Type B (PCR) (Not Detectd) RSV (PCR) (Not Detectd) SARS-CoV-2 (PCR) (Not Detectd) 12/24/24 12/24/24 12/24/24 Range/Units 07:15 07:15 07:15 WBC (4.50-10.00) 10*3/uL RBC (4.40-5.60) 10*6/uL Hgb (13.0-17.0) g/dL Hct (39.6-50.0) % MCV (80.0-97.0) fL MCH (27.0-32.0) pg MCHC (32.0-37.0) g/dL Plt Count (140-440) 10*3/uL MPV (9.5-12.2) fL Immature Gran % (Auto) % Neutrophils % % Lymphocytes % % Monocytes % % Eosinophils % % Basophils % % Immature Gran # (0.00-0.04) 10*3/uL Neutrophils # (1.80-7.70) 10*3/uL Lymphocytes # (0.90-5.00) 10*3/uL Monocytes # (0.20-1.00) 10*3/uL Eosinophils # (0.04-0.35) 10*3/uL Basophils # (0.00-0.10) 10*3/uL PT (10.0-12.5) sec INR (<1.2) APTT (22.0-30.0) sec Sodium 135 L (137-145) mmol/L Potassium 2.3 L* (3.5-5.1) mmol/L Chloride 101 (98-107) mmol/L Carbon Dioxide 16 L (22-30) mmol/L Anion Gap 18 mmol/L BUN 5 L (9-20) mg/dL Creatinine 0.31 L (0.66-1.25) mg/dL Est GFR (CKD-EPI)AfAm >90 (>60 ml/min/1.73 sqM) Est GFR (CKD-EPI)NonAf >90 (>60 ml/min/1.73 sqM) Glucose 339 H (74-99) mg/dL POC Glucose (mg/dL) (70-110) mg/dL POC Glu Cigar Making Supervisor ID Calcium 4.1 L* (8.4-10.2) mg/dL Magnesium 0.5 L* (1.6-2.3) mg/dL Total Bilirubin 0.7 (0.2-1.3) mg/dL AST 223 H (17-59) U/L ALT 55 H (4-49) U/L Alkaline Phosphatase 209 H (38-126) U/L Ammonia (<30) umol/L Troponin I 0.022 (0.000-0.034) ng/mL NT-Pro-B Natriuret Pep 329 pg/mL Total Protein 4.9 L (6.3-8.2) g/dL Albumin 2.2 L (3.5-5.0) g/dL Lipase 81 (23-300) U/L Serum Alcohol <10 mg/dL Influenza Type A (PCR) Not Detected (Not Detectd) Influenza Type B (PCR) Not Detected (Not Detectd) RSV (PCR) Not Detected (Not Detectd) SARS-CoV-2 (PCR) Not Detected (Not Detectd) 12/24/24 12/24/24 Range/Units 07:15 08:10 WBC (4.50-10.00) 10*3/uL RBC (4.40-5.60) 10*6/uL Hgb (13.0-17.0) g/dL Hct (39.6-50.0) % MCV (80.0-97.0) fL MCH (27.0-32.0) pg MCHC (32.0-37.0) g/dL Plt Count (140-440) 10*3/uL MPV (9.5-12.2) fL Immature Gran % (Auto) % Neutrophils % % Lymphocytes % % Monocytes % % Eosinophils % % Basophils % % Immature Gran # (0.00-0.04) 10*3/uL Neutrophils # (1.80-7.70) 10*3/uL Lymphocytes # (0.90-5.00) 10*3/uL Monocytes # (0.20-1.00) 10*3/uL Eosinophils # (0.04-0.35) 10*3/uL Basophils # (0.00-0.10) 10*3/uL PT (10.0-12.5) sec INR (<1.2) APTT (22.0-30.0) sec Sodium (137-145) mmol/L Potassium (3.5-5.1) mmol/L Chloride (98-107) mmol/L Carbon Dioxide (22-30) mmol/L Anion Gap mmol/L BUN (9-20) mg/dL Creatinine (0.66-1.25) mg/dL Est GFR (CKD-EPI)AfAm (>60 ml/min/1.73 sqM) Est GFR (CKD-EPI)NonAf (>60 ml/min/1.73 sqM) Glucose (74-99) mg/dL POC Glucose (mg/dL) (70-110) mg/dL POC Glu Cigar Making Supervisor ID Calcium (8.4-10.2) mg/dL Magnesium (1.6-2.3) mg/dL Total Bilirubin (0.2-1.3) mg/dL AST (17-59) U/L ALT (4-49) U/L Alkaline Phosphatase (38-126) U/L Ammonia 64 H 39 H (<30) umol/L Troponin I (0.000-0.034) ng/mL NT-Pro-B Natriuret Pep pg/mL Total Protein (6.3-8.2) g/dL Albumin (3.5-5.0) g/dL Lipase (23-300) U/L Serum Alcohol mg/dL Influenza Type A (PCR) (Not Detectd) Influenza Type B (PCR) (Not Detectd) RSV (PCR) (Not Detectd) SARS-CoV-2 (PCR) (Not Detectd) - EKG Data -: EKG Interpreted by Me EKG Comments: 12-lead Electrocardiogram Interpretation Note EKG was reviewed and interpreted by myself. 12-lead ECG performed at 0711 is interpreted by me as revealing junctional tachycardia at a rate of 111 beats per minute. [place] is normal. NE interval is 105 ms, QRS duration 72 ms, QTc is 358 ms.. There were no ST or T wave abnormalities to suggest myocardial ischemia or injury. R wave progression across the precordium was satisfactory. By my interpretation this EKG is non-diagnostic for acute ischemia. Critical Care Time Critical Care Time: Yes Total Critical Care Time: 50 Disposition Clinical Impression: Cardiac arrest, Ventricular tachycardia, Hypomagnesemia, Hypokalemia, Colitis, Chronic pancreatitis Disposition: ADMITTED IP TO THIS HOSP Condition: Serious Time of Disposition: 10:57
[2024-12-24 07:53] LABS: Calcium 4.1 mg/dL (8.4-10.2); Potassium 2.3 mmol/L (3.5-5.1)
[2024-12-24 07:54] LABS: Magnesium 0.5 mg/dL (1.6-2.3)
[2024-12-24 08:05] LABS: RSV Not Detected (Not Detectd)
[2024-12-24] MEDS: AMIODARONE 360 MG in DEXTROSE 5% IN WATER 200 ML IV ONE (08:15)
[2024-12-24] MEDS: SODIUM CHLORIDE 0.9% 1,000 ML IV STA (08:23)
[2024-12-24] MEDS: THIAMINE 100 MG/ML 2 ML VIAL IM STA (08:23)
[2024-12-24] MEDS: MAGNESIUM SULFATE-D5W PMX 1 GM in DEXTROSE/WATER 1 100ML.BAG IVPB SCH ×2 (09:03→23:04)
[2024-12-24] MEDS: POTASSIUM CHLORIDE 10 MEQ in WATER FOR INJECTION 1 100ML.BAG IVPB SCH (09:04)
--- NOTE | 2024-12-24 09:23 | CT ---
EXAMINATION TYPE: CT brain wo con DATE OF EXAM: 12/24/2024 8:55 AM COMPARISON: None. CLINICAL INDICATION: Male, 44 years old with history of Altered mental status, AMS, cardiac arrest TECHNIQUE: CT of the brain is performed utilizing 3 mm thick sections through the posterior fossa and 3 mm thick sections through the remaining calvarium. Study is performed within 24 hours of arrival to the hospital. Contrast used: mL of , (none if empty) CT DLP: 1127.4 mGycm, Automated exposure control for dose reduction was used. FINDINGS: No abnormal hyperdensity is present to suggest an acute intracranial hemorrhage. No mass lesion is evident. No acute infarcts are evident. Ventricles and sulci are appropriate for the patient age. Small retention cyst within the left maxillary sinus. Remaining paranasal sinuses and mastoid air betsy ls are clear. IMPRESSION: 1. No acute intracranial process. Follow up MRI can be performed as clinically indicated. [facility], , 12/24/2024 9:21 AM
--- NOTE | 2024-12-24 09:41 | CT ---
EXAMINATION TYPE: CT chest angio for PE DATE OF EXAM: 12/24/2024 8:55 AM COMPARISON: None. CLINICAL INDICATION: Male, 44 years old with history of cardiac arrest, cardiac arrest/ abdominal natalie n, N,V, TECHNIQUE: CT of the chest is performed on a spiral scan at 2 mm thick sections. Study is performed with intravenous contrast timed for evaluation for pulmonary embolism. This will limit additional po rtions of the evaluation. 10mm MIP images reconstructed by the technologist are reviewed on the comp uter in the coronal and sagittal planes. Contrast used: mL of Isovue 370 with IV Contrast, (none if empty) Oral contrast used: (none if empty) CT DLP: 767.9 mGycm, Automated exposure control for dose reduction was used. FINDINGS: No persistent filling defects are evident to suggest an acute pulmonary embolism. No mediastinal or hilar adenopathy enlarged by CT criteria is evident. The ascending aorta diameter at the level of the main pulmonary artery is 3.2 cm. The main pulmonary artery diameter at the bifurcation is 2.4 cm. Groundglass opacities at the right apex. A few additional scattered areas of glass opacities within t he right lung. Findings are nonspecific but can be related to infectious etiology or pulmonary edema No significant coronary artery calcifications. Limited CT sections were through the upper abdomen. There is moderate fatty infiltration of liver. M ultiple calcifications in the pancreas suggest chronic pancreatitis. IMPRESSION: 1. No acute pulmonary. 2. Scattered groundglass opacities in the right lung. Atelectasis is decrease in pulmonary edema coul d be considered within the differential. [facility], , 12/24/2024 9:38 AM
[2024-12-24] MEDS: fentaNYL (PF) 50 MCG/ML 2 ML AMP IVP STA (09:42)
--- NOTE | 2024-12-24 09:48 | CT ---
EXAMINATION TYPE: CT abdomen pelvis w con DATE OF EXAM: 12/24/2024 8:55 AM COMPARISON: None. CLINICAL INDICATION: Male, 44 years old with history of abd pain/n/v, cardiac arrest/ abdominal pain, N,V TECHNIQUE: Axial images were obtained from above the diaphragm to the pubic rami in the axial plane a t 5 mm thick sections. Reconstructed images are reviewed on the computer in the coronal plane. CONTRAST: 100 ml mL of Isovue 370. Study performed without Oral Contrast DLP: 767.9 mGycm, Automated exposure control for dose reduction was used. FINDINGS: Limited CT sections are obtained the lung bases. The lung bases are clear. CT ABDOMEN: Liver: There is moderate fatty infiltration liver. Spleen: Normal Pancreas: Multiple calcifications are present which can be compatible with chronic pancreatitis. Adrenal glands: The adrenal glands are normal. Gallbladder: Normal Kidneys: No masses are evident. No hydronephrosis is present. No cysts are present. Delayed images were obtained through the kidneys, which remain unremarkable. Aorta: Normal Inferior vena cava: Normal. CT PELVIS: Some mild wall thickening through the ascending colon region is present. There is some mildly promine nt small bowel loops within the right lower quadrant. Mild thickening through the sigmoid colon may b e present. Clinical correlation for colitis is recommended. The study is without oral contrast limiti ng evaluation. Appendix: Normal as visualized. Urinary bladder: Normal. Genitourinary structures: Prostate is normal Osseous structures: No suspicious lytic or sclerotic lesions. IMPRESSION: 1. Diffuse wall thickening within the sigmoid colon and within the ascending colon region. Correlate for colitis. 2. Some mild ileus may be present. 3. Changes suggestive for chronic pancreatitis. 4 marked fatty infiltration of liver [facility], , 12/24/2024 9:45 AM
[2024-12-24] MEDS: METOPROLOL TARTRATE 25 MG TAB PO SCH (10:16)
--- NOTE | 2024-12-24 10:40 | P.CRDCN ---
History of Present Illness History of present illness: HISTORY OF PRESENT ILLNESS: This is a 44-year-old male with a past medical history significant for syncope, pancreatitis, splenic vein thrombosis, and alcohol abuse. 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 We have been asked to see the patient in consultation for cardiac arrest. Apparently the patient was having altered mental status at home and EMS was called. Patient was found to be in ventricular tachycardia and CPR was started. 1 shock was delivered. The patient then had ROSC. Apparently no medications were given. The patient is seen and examined at the bedside in the emergency room. Patient is awake and alert. He currently denies any chest pain or pressure. Denies any shortness of breath. Patient does not remember any of the episodes that happened this morning. He just remembers waking up in the ambulance. He states he has not had any alcohol to drink in 2 to 3 days. He does state he has a history of alcohol abuse and drinks twisted teas. DIAGNOSTICS: - EKG reveals sinus tachycardia with no signs of acute ischemia. - Chest xray negative for acute process. - Laboratory data: WBC 13.81. Hemoglobin 10.7. Platelet count 356. Sodium 135. Potassium 2.3. BUN 5. Creatinine 0.31. Calcium 4.1. Magnesium 0.5. AST 223. ALT 55. Troponin 0.022. proBNP 329. - Current home cardiac medication list is not updated at the time of this dictation - No previous echocardiogram, stress test, or cardiac catheterization available in EMR for review REVIEW OF SYSTEMS: At the time of my exam: CONSTITUTIONAL: Denies fever or chills. HEENT: Denies blurred vision, vision changes, or eye pain. Denies hemoptysis CARDIOVASCULAR: Denies chest pain. Denies orthopnea. Denies PND. Denies palpitations RESPIRATORY: Denies shortness of breath. GASTROINTESTINAL: Denies abdominal pain. Denies nausea or vomiting. HEMATOLOGIC: Denies bleeding disorders. GENITOURINARY: Denies any blood in urine. SKIN: Denies pruitis. Denies rash. PHYSICAL EXAM: VITAL SIGNS: Reviewed. GENERAL: Well-developed in no acute distress. HEENT: Head is normocephalic. Pupils are equal, round. Sclerae anicteric. Mucous membranes of the mouth are moist. Neck supple. No JVD or thyromegaly LUNGS: Respirations even and unlabored. Lungs essentially clear to auscultation bilaterally. HEART: Regular rate and rhythm. S1 and S2 heard. ABDOMEN: Soft. Nondistended. Nontender. EXTREMITIES: Normal range of motion. No clubbing or cyanosis. Peripheral pulses intact. No lower extremity edema NEUROLOGIC: Awake and alert. Oriented x 3. ASSESSMENT: V tach cardiac arrest Hypokalemia Hypomagnesemia Hypocalcemia Transaminitis Elevated ammonia level Coagulopathy, secondary to liver disease, INR 1.9 History of alcohol abuse History of pancreatitis History of splenic vein thrombosis, previously on Eliquis History of syncope PLAN: Continue IV amiodarone Add metoprolol tartrate 25 mg twice a day Obtain 2D echo to assess cardiac structure and function Continue telemetry monitoring Further recommendations pending patient course Nurse practitioner note has been reviewed by physician. Signing provider agrees with the documented findings, assessment, and plan of care documented by PROMOTIONAL MARKETING ANALYST as a scribe. Past Medical History Past Medical History: CVA/TIA, GERD/Reflux, Hearing Disorder / Deafness, Hypertension, Musculoskeletal Disorder Additional Past Medical History / Comment(s): TIA, States needs MRI of brain. "High heart rate recently from the pain". Hiatal hernia. Chronic pancreatitis/pain. 4 slipped discs in back. Sore muscles. Mild hearing loss. History of Any Multi-Drug Resistant Organisms: None Reported Additional Past Surgical History / Comment(s): "Pseudocyst removed from stomach". Past Anesthesia/Blood Transfusion Reactions: No Reported Reaction Past Psychological History: No Psychological Hx Reported Smoking Status: Current every day smoker Past Alcohol Use History: Abuse Past Drug Use History: Marijuana - Past Family History Father Family Medical History: Cancer Additional Family Medical History / Comment(s): Colon cancer. Medications and Allergies Home Medications Medication Instructions Recorded Confirmed Type Omeprazole 40 mg PO DAILY 08/02/23 09/25/24 History Lipase/Protease/Amylase [Creon Dr 3 cap PO DAILY 09/25/24 09/25/24 History 36,000 Unit Capsule] Pregabalin [Lyrica] 150 mg PO BID 09/25/24 09/25/24 History Apixaban [Eliquis Starter Pack 5 - 10 mg PO DIRECTED 30 Days 09/27/24 Rx (for VTE)] #1 each Cholecalciferol [Vitamin D3 (25 50 mcg PO DAILY #30 tab 09/27/24 Rx Mcg = 1000 Iu)] Folic Acid 1 mg PO DAILY #30 tab 09/27/24 Rx Magnesium Oxide [Brownlee] 500 mg PO DAILY #7 tablet 09/27/24 Rx Thiamine [Vitamin B-1] 100 mg PO DAILY #30 tab 09/27/24 Rx methylPREDNISolone [Medrol Dose 0 mg PO DIRECTED #1 packet 09/27/24 Rx Pack] Allergies Allergy/AdvReac Type Severity Reaction Status Date / Time No Known Allergies Allergy Verified 09/25/24 07:59 Physical Exam Vitals: Vital Signs Temp Pulse Pulse Resp BP BP Pulse Ox 12/24/24 10:17 110 H 22 94/71 100 12/24/24 09:53 98.1 F 118 H 22 98/76 12/24/24 09:40 121 H 20 98/76 100 12/24/24 09:04 102 H 20 99/77 98 12/24/24 08:52 98.0 F 108 H 22 92/66 100 12/24/24 07:53 112 H 22 105/76 99 12/24/24 07:10 98.2 F 12/24/24 07:04 115 H 20 104/91 Intake and Output 12/23/24 12/24/24 12/24/24 22:59 06:59 14:59 Other: Weight 49.895 kg Results 12/24/24 07:15 12/24/24 07:15 Cardiac Enzymes 12/24/24 12/24/24 Range/Units 07:15 07:15 AST 223 H (17-59) U/L Troponin I 0.022 (0.000-0.034) ng/mL Coagulation 12/24/24 Range/Units 07:15 PT 19.8 H (10.0-12.5) sec APTT 26.4 (22.0-30.0) sec CBC 12/24/24 Range/Units 07:15 WBC 13.81 H (4.50-10.00) 10*3/uL RBC 3.59 L (4.40-5.60) 10*6/uL Hgb 10.7 L (13.0-17.0) g/dL Hct 31.5 L (39.6-50.0) % Plt Count 356 (140-440) 10*3/uL Comprehensive Metabolic Panel 12/24/24 Range/Units 07:15 Sodium 135 L (137-145) mmol/L Potassium 2.3 L* (3.5-5.1) mmol/L Chloride 101 (98-107) mmol/L Carbon Dioxide 16 L (22-30) mmol/L BUN 5 L (9-20) mg/dL Creatinine 0.31 L (0.66-1.25) mg/dL Glucose 339 H (74-99) mg/dL Calcium 4.1 L* (8.4-10.2) mg/dL AST 223 H (17-59) U/L ALT 55 H (4-49) U/L Alkaline Phosphatase 209 H (38-126) U/L Total Protein 4.9 L (6.3-8.2) g/dL Albumin 2.2 L (3.5-5.0) g/dL Current Medications Generic Name Dose Route Start Last Admin Trade Name Freq PRN Reason Stop Dose Admin Sodium Chloride 1,000 mls @ 130 mls/hr 12/24/24 07:06 12/24/24 08:23 Saline 0.9% IV 12/24/24 14:47 130 mls/hr .Q7H42M STA Administration Amiodarone HCl 360 mg/ 200 mls @ 33.333 mls/hr 12/24/24 07:08 12/24/24 08:15 Dextrose/Water IV 12/24/24 13:07 1 mg/min .Q6H ONE 33.333 mls/hr Administration Protocol 1 MG/MIN Amiodarone HCl 450 mg/ 250 mls @ 16.667 mls/hr 12/24/24 13:15 Dextrose/Water IV 12/25/24 07:14 .Q15H VLAD Protocol 0.5 MG/MIN Potassium Chloride 10 meq/ IV 100 mls @ 100 mls/hr 12/24/24 08:00 12/24/24 10:16 Solution IVPB 12/24/24 13:59 100 mls/hr Q1HR VLAD Administration Lorazepam 1 mg 12/24/24 07:15 12/24/24 07:45 Lorazepam 1 Mg/0.5 Ml Vial IV 1 mg Q1HR PRN Administration CIWA 10 to 15 Lorazepam 1 mg 12/24/24 07:15 Lorazepam 1 Mg/0.5 Ml Vial IV Q2HR PRN CIWA 8 or 9 Lorazepam 2 mg 12/24/24 07:15 Lorazepam 1 Mg/0.5 Ml Vial IV 12/26/24 07:15 Q10M PRN CIWA 16 or higher Metoprolol Tartrate 25 mg 12/24/24 09:00 12/24/24 10:16 Metoprolol Tartrate 25 Mg Tab PO 25 mg BID VLAD Administration Intake and Output 12/23/24 12/24/24 12/24/24 22:59 06:59 14:59 Other: Weight 49.895 kg Patient Weight 12/25/24 06:59 Weight 49.895 kg 12/24/24 07:15 12/24/24 07:15
[2024-12-24] MEDS ORDERED: NALOXONE 0.4 MG/ML 1 ML VIAL IV PRN (10:56)
[2024-12-24] MEDS: PANTOPRAZOLE 40 MG/10 ML VIAL IVP STA (12:53)
[2024-12-24 13:37] LABS: Bilirubin,Urine Negative (Negative); Blood,Urine Negative (Negative); Color,Urine Yellow; Glucose,Urine (UA) 3+ (Negative); Ketones,Urine 1+ (Negative); Leukocyte Esterase,Urine Negative (Negative); Mucus,Urine Rare /hpf; Nitrite,Urine Negative (Negative); PH, Urine 7.0 (5.0-8.0); Protein,Urine 1+ (Negative); RBC,Urine 31 /hpf (0-5); Squamous Epithelial Cell,Urine <1 /hpf (0-4); Urobilinogen,Urine <2.0 mg/dL (<2.0); WBC,Urine 5 /hpf (0-5)
[2024-12-24 13:39] LABS: Barbiturate Screen,Urine Not Detected (NotDetected); Benzodiazepines Screen,Urine Detected (NotDetected); Opiate Screen,Urine Not Detected (NotDetected); Oxycodone Screen, Urine Not Detected (NotDetected); Phencyclidine Screen,Urine Not Detected (NotDetected); Tricyclic Antidepressant,Urine Detected (NotDetected); Urn Cannabinoid Scrn Detected (NotDetected)
[2024-12-24 13:46] LABS: Specific Gravity,Urine >1.050 (1.001-1.035)
[2024-12-24] MEDS: AMIODARONE 450 MG in DEXTROSE 5% IN WATER 250 ML IV SCH (14:49)
[2024-12-24] MEDS: HYDROmorphone 0.5 MG/0.5 ML SYRINGE IVP PRN (15:06)
--- NOTE | 2024-12-24 15:08 | P.CONS ---
History of Present Illness - Reason for Consult Consult date: 12/24/24 Colitis, chronic pancreatitis Requesting physician: Saul Chapman - Chief Complaint Altered mental status changes, unresponsiveness - History of Present Illness This is a pleasant 44-year-old male who was brought in to the emergency department by EMS this morning secondary to patient with altered mental status changes, seizure-like activity and dizziness. 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 Patient states he remembers feeling dizzy and asked his roommate to call EMS. He does not remember much after that. Apparently when EMS arrived patient had some seizure-like activities and went unresponsive. He was hooked up to the monitor and found to be in ventricular tachycardia, CPR was started and administered 1 shock and patient rate resumed consciousness. Patient reports that he has been having nausea and vomiting for last couple days duration states his sugar was low. He has also been having diarrhea for the last 2 weeks up to 5/day. He has followed with gastroenterology for history of alcohol pancreatitis and large pseudocyst which he was following at [facility] and has had the cyst drained with stents. 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 States he last took his Eliquis yesterday. He denies any blood in his stool. States he is not drinking as much anymore and just drinks socially. Patient had significant altered laboratory work on admission. States he has some epigastric pain. He has had significant weight loss since his initial diagnosis of pancreatitis in pancreatic pseudocyst which she was diagnosed about 2 years ago. States he has had decreased appetite and not eating much. Patient denies any known history of alcohol liver disease. WBC 13.8 hemoglobin 10.7 platelet count 356,000 INR 1.9 sodium 135 potassium 2.3 BUN 5 creatinine 0.3 glucose 339 calcium 4.1 magnesium 0.5 total bilirubin 0.7 AST 223 ALT 55 alkaline phosphatase 209 ammonia 64 on admission repeat 39 troponin 0.377 lipase 81. Serum alcohol less than 10. Review of Systems REVIEW OF SYSTEMS: CARDIOPULMONARY: Chest pain without shortness of breath. Gastrointestinal: Epigastric abdominal pain. Positive for nausea and vomiting. Positive diarrhea over the last 2 weeks. No hematemesis, coffee-ground emesis. No rectal bleeding, or melena. GENITOURINARY: No dysuria or hematuria. MUSCULOSKELETAL: Reports normal range of motion., Joint pain. SKIN: No rashes. No jaundice. ENDOCRINE: No chills, fevers. No excessive weight gain or loss. No polydipsia or polyuria. PSYCHIATRIC: Unremarkable. NEUROLOGY: No change in mental status. Denies dizziness, headache. ENT: Vision unremarkable. CONSTITUTIONAL: No recent weight loss. No fever, chills, night sweats. Past Medical History Past Medical History: CVA/TIA, GERD/Reflux, Hearing Disorder / Deafness, Hypertension, Musculoskeletal Disorder Additional Past Medical History / Comment(s): TIA, States needs MRI of brain. "High heart rate recently from the pain". Hiatal hernia. Chronic pancreatitis/pain. 4 slipped discs in back. Sore muscles. Mild hearing loss. History of Any Multi-Drug Resistant Organisms: None Reported Additional Past Surgical History / Comment(s): "Pseudocyst removed from s tomach". Past Anesthesia/Blood Transfusion Reactions: No Reported Reaction Past Psychological History: No Psychological Hx Reported Smoking Status: Current every day smoker Past Alcohol Use History: Abuse Past Drug Use History: Marijuana - Past Family History Father Family Medical History: Cancer Additional Family Medical History / Comment(s): Colon cancer. Medications and Allergies Home Medications Medication Instructions Recorded Confirmed Type Omeprazole 40 mg PO DAILY 08/02/23 12/24/24 History Lipase/Protease/Amylase [Creon Dr 3 cap PO TID-W/MEALS 09/25/24 12/24/24 History 36,000 Unit Capsule] Apixaban [Eliquis] 5 mg PO BID 12/24/24 12/24/24 History Pregabalin [Lyrica] 200 mg PO TID 12/24/24 12/24/24 History Allergies Allergy/AdvReac Type Severity Reaction Status Date / Time No Known Allergies Allergy Verified 12/24/24 11:38 Physical Exam Vitals: Vital Signs Temp Pulse Pulse Resp BP BP Pulse Ox 12/24/24 14:21 101 H 20 93/72 98 12/24/24 13:04 98.0 F 93 93 20 91/70 91/70 100 12/24/24 10:17 110 H 22 94/71 100 12/24/24 09:53 98.1 F 118 H 22 98/76 12/24/24 09:40 121 H 20 98/76 100 12/24/24 09:04 102 H 20 99/77 98 12/24/24 08:52 98.0 F 108 H 22 92/66 100 12/24/24 07:53 112 H 22 105/76 99 12/24/24 07:10 98.2 F 12/24/24 07:04 115 H 20 104/91 Intake and Output 12/23/24 12/24/24 12/24/24 22:59 06:59 14:59 Other: Weight 49.895 kg General appearance: The patient is alert, oriented, appears in no acute distress. HET: Head is normocephalic and atraumatic. Conjunctiva pink. Sclera anicteric. Neck: Supple without lymphadenopathy. Trachea midline. Heart: Regular. Lungs: Equal expansion, normal respiratory effort. Abdomen: Soft, strict tenderness, nondistended. Skin: No rashes. No jaundice. Extremities: Normal skin color and turgor. No pedal edema. Neurological: No focal deficits. Alert and oriented x3. Results CBC & Chem 7: 12/24/24 07:15 12/24/24 07:15 Labs: Abnormal Lab Results - Last 24 Hours (Table) 12/24/24 12/24/24 12/24/24 Range/Units 07:10 07:15 07:15 WBC 13.81 H (4.50-10.00) 10*3/uL RBC 3.59 L (4.40-5.60) 10*6/uL Hgb 10.7 L (13.0-17.0) g/dL Hct 31.5 L (39.6-50.0) % Immature Gran # 0.23 H (0.00-0.04) 10*3/uL Neutrophils # 10.86 H (1.80-7.70) 10*3/uL Monocytes # 1.35 H (0.20-1.00) 10*3/uL Eosinophils # 0.00 L (0.04-0.35) 10*3/uL PT 19.8 H (10.0-12.5) sec INR 1.9 H (<1.2) Sodium (137-145) mmol/L Potassium (3.5-5.1) mmol/L Carbon Dioxide (22-30) mmol/L BUN (9-20) mg/dL Creatinine (0.66-1.25) mg/dL Glucose (74-99) mg/dL POC Glucose (mg/dL) 356 H (70-110) mg/dL Calcium (8.4-10.2) mg/dL Magnesium (1.6-2.3) mg/dL AST (17-59) U/L ALT (4-49) U/L Alkaline Phosphatase (38-126) U/L Ammonia (<30) umol/L Troponin I (0.000-0.034) ng/mL Total Protein (6.3-8.2) g/dL Albumin (3.5-5.0) g/dL Ur Specific [place] (1.001-1.035) Urine Protein (Negative) Urine Glucose (UA) (Negative) Urine Ketones (Negative) Urine RBC (0-5) /hpf Urine Mucus (None) /hpf U Tricyclic Antidepress (NotDetected) U Benzodiazepines Scrn (NotDetected) U Marijuana (THC) Screen (NotDetected) 12/24/24 12/24/24 12/24/24 Range/Units 07:15 07:15 08:10 WBC (4.50-10.00) 10*3/uL RBC (4.40-5.60) 10*6/uL Hgb (13.0-17.0) g/dL Hct (39.6-50.0) % Immature Gran # (0.00-0.04) 10*3/uL Neutrophils # (1.80-7.70) 10*3/uL Monocytes # (0.20-1.00) 10*3/uL Eosinophils # (0.04-0.35) 10*3/uL PT (10.0-12.5) sec INR (<1.2) Sodium 135 L (137-145) mmol/L Potassium 2.3 L* (3.5-5.1) mmol/L Carbon Dioxide 16 L (22-30) mmol/L BUN 5 L (9-20) mg/dL Creatinine 0.31 L (0.66-1.25) mg/dL Glucose 339 H (74-99) mg/dL POC Glucose (mg/dL) (70-110) mg/dL Calcium 4.1 L* (8.4-10.2) mg/dL Magnesium 0.5 L* (1.6-2.3) mg/dL AST 223 H (17-59) U/L ALT 55 H (4-49) U/L Alkaline Phosphatase 209 H (38-126) U/L Ammonia 64 H 39 H (<30) umol/L Troponin I (0.000-0.034) ng/mL Total Protein 4.9 L (6.3-8.2) g/dL Albumin 2.2 L (3.5-5.0) g/dL Ur Specific [place] (1.001-1.035) Urine Protein (Negative) Urine Glucose (UA) (Negative) Urine Ketones (Negative) Urine RBC (0-5) /hpf Urine Mucus (None) /hpf U Tricyclic Antidepress (NotDetected) U Benzodiazepines Scrn (NotDetected) U Marijuana (THC) Screen (NotDetected) 12/24/24 12/24/24 12/24/24 Range/Units 12:49 13:00 13:00 WBC (4.50-10.00) 10*3/uL RBC (4.40-5.60) 10*6/uL Hgb (13.0-17.0) g/dL Hct (39.6-50.0) % Immature Gran # (0.00-0.04) 10*3/uL Neutrophils # (1.80-7.70) 10*3/uL Monocytes # (0.20-1.00) 10*3/uL Eosinophils # (0.04-0.35) 10*3/uL PT (10.0-12.5) sec INR (<1.2) Sodium (137-145) mmol/L Potassium (3.5-5.1) mmol/L Carbon Dioxide (22-30) mmol/L BUN (9-20) mg/dL Creatinine (0.66-1.25) mg/dL Glucose (74-99) mg/dL POC Glucose (mg/dL) (70-110) mg/dL Calcium (8.4-10.2) mg/dL Magnesium (1.6-2.3) mg/dL AST (17-59) U/L ALT (4-49) U/L Alkaline Phosphatase (38-126) U/L Ammonia (<30) umol/L Troponin I 0.377 H* (0.000-0.034) ng/mL Total Protein (6.3-8.2) g/dL Albumin (3.5-5.0) g/dL Ur Specific [place] >1.050 H (1.001-1.035) Urine Protein 1+ H (Negative) Urine Glucose (UA) 3+ H (Negative) Urine Ketones 1+ H (Negative) Urine RBC 31 H (0-5) /hpf Urine Mucus Rare H (None) /hpf U Tricyclic Antidepress Detected H (NotDetected) U Benzodiazepines Scrn Detected H (NotDetected) U Marijuana (THC) Screen Detected H (NotDetected) Comments: CT abdomen pelvis with contrast reports diffuse wall thickening within the sigmoid colon and within the ascending colon region. Correlate for colitis. Some mild ileus may be present. Changes suggestive for chronic pancreatitis. Marked fatty infiltration of liver. Chest CTA reports no acute pulmonary process. Scattered groundglass opacities in the right lung. Atelectasis is decreased and pulmonary edema could be considered within the differential. Assessment and Plan (1) Diarrhea Narrative/Plan: 4-year-old presenting with altered mental status changes, cardiac arrest complaining of epigastric pain and diarrhea. Electrolyte imbalances. Stated 2 weeks of nonbloody diarrhea with CT evidence of diffuse wall thickening within the sigmoid colon and within the ascending colon correlate for possible colitis. Unclear etiology of diarrhea, possibly infectious. Will obtain stool cultures. Current Visit: Yes Status: Acute Code(s): R19.7 - DIARRHEA, UNSPECIFIED SNOMED Code(s): 02553808 (2) Elevated liver enzymes Narrative/Plan: Patient with elevated liver enzymes, with known history of alcoholism and alcohol pancreatitis with splenic vein thrombosis. 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 Current Visit: Yes Status: Acute Code(s): R74.8 - ABNORMAL LEVELS OF OTHER SERUM ENZYMES SNOMED Code(s): 590871525 (3) Chronic pancreatitis Current Visit: Yes Status: Acute Code(s): K86.1 - OTHER CHRONIC PANCREATITIS SNOMED Code(s): 208503726 (4) Hypokalemia Current Visit: Yes Status: Acute Code(s): E87.6 - HYPOKALEMIA SNOMED Code(s): 01507245 (5) Alcoholism Current Visit: No Status: Acute Code(s): F10.20 - ALCOHOL DEPENDENCE, UNCOMPLICATED SNOMED Code(s): 9319121 (6) Hypocalcemia Current Visit: No Status: Acute Code(s): E83.51 - HYPOCALCEMIA SNOMED Code(s): 4339061 (7) Hypomagnesemia Current Visit: No Status: Acute Code(s): E83.42 - HYPOMAGNESEMIA SNOMED C ode(s): 353517003 (8) Splenic vein thrombosis Current Visit: No Status: Acute Code(s): I82.890 - ACUTE EMBOLISM AND THROMBOSIS OF OTHER SPECIFIED VEINS SNOMED Code(s): 71765489 (9) Hyperammonemia Current Visit: Yes Status: Acute Code(s): E72.20 - DISORDER OF UREA CYCLE METABOLISM, UNSPECIFIED SNOMED Code(s): 4142245 (10) Cardiac arrest Narrative/Plan: Cardiac arrest, V. tach Current Visit: Yes Status: Acute Code(s): I46.9 - CARDIAC ARREST, CAUSE UNSPECIFIED SNOMED Code(s): 411014879 Plan: 1. Continue symptomatic and supportive care 2. Patient may have clear liquid diet 3. Replace electrolytes per protocol 4. Antiemetics as needed 5. Stool culture ordered 6. Start lactulose for hyperammonemia, repeat ammonia tomorrow 7. Protonix 40 mg daily for GI prophylaxis 8. Continue with cardiology workup and recommendations 9. No plans for colonoscopy 10. Recommend complete alcohol abstinence 11. Rest of medical management per primary medical team Thank you for this consultation, we will continue to follow. Dr. Rupert Rosario I agree with the dictator's note, documented as a scribe by Flora Quintana.
--- NOTE | 2024-12-24 15:54 | P.CNPUL ---
History of Present Illness Consult date: 12/24/24 Requesting physician: Baron Groves Reason for consult: other (Cardiac arrest) Chief complaint: Unresponsiveness/cardiac arrest History of present illness: This is a 44-year-old white male brought into the emergency room earlier this morning by EMS with altered mental status and seizure-like activity. Apparently the patient is known to have past medical history of alcohol use, chronic pancreatitis, pancreatic pseudocyst, history of hypertension, previous history of TIA, patient had a sudden feeling of dizziness, and asked his roommate to call EMS. Apparently upon arrival of EMS he was found to have seizure-like activity and went unresponsive on the monitor the patient was noted to have ventricular tachycardia, CPR was started and the patient received 1 shock. Patient became conscious again, and his rhythm came back with return of circulation. Apparently for the last few days the patient has been experiencing episodes of nausea and vomiting and episodes of low blood sugar. In addition, patient has been complaining of episodes of diarrhea for the last 2 weeks. Patient normally follows up at [facility] for his pancreatitis and pseudocyst. 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 And has been taking Eliquis until yesterday. Patient drinks occasionally at this point, used to be a heavy drinker in the past. I evaluated the patient in the ER, and considering his cardiac arrest history, I recommended admitting the patient to the ICU, and he is to be seen by other consultants including cardiology. During my evaluation the patient was not in any distress, he was hemodynamically stable, all his labs were reviewed. Review of Systems REVIEW OF SYSTEMS: CONSTITUTIONAL: Weakness EYES: Negative. ENT: Negative. CARDIAC: As noted in HPI PULMONARY: As noted in HPI GI: As noted in HPI GENITOURINARY: Negative. MUSCULOSKELETAL: Negative. SKIN: Negative. NEUROPSYCH: Negative. ENDOCRINE: Negative. HEMATOLOGIC: Negative. Past Medical History Past Medical History: CVA/TIA, GERD/Reflux, Hearing Disorder / Deafness, Hypertension, Musculoskeletal Disorder Additional Past Medical History / Comment(s): TIA, States needs MRI of brain. "High heart rate recently from the pain". Hiatal hernia. Chronic pancreatitis/pain. 4 slipped discs in back. Sore muscles. Mild hearing loss. History of Any Multi-Drug Resistant Organisms: None Reported Additional Past Surgical History / Comment(s): "Pseudocyst removed from stomach". Past Anesthesia/Blood Transfusion Reactions: No Reported Reaction Past Psychological History: No Psychological Hx Reported Smoking Status: Current every day smoker Past Alcohol Use History: Abuse Past Drug Use History: Marijuana - Past Family History Father Family Medical History: Cancer Additional Family Medical History / Comment(s): Colon cancer. Medications and Allergies Home Medications Medication Instructions Recorded Confirmed Type Omeprazole 40 mg PO DAILY 08/02/23 12/24/24 History Lipase/Protease/Amylase [[place] Dr 3 cap PO TID-W/MEALS 09/25/24 12/24/24 History 36,000 Unit Capsule] Apixaban [Eliquis] 5 mg PO BID 12/24/24 12/24/24 History Pregabalin [Lyrica] 200 mg PO TID 12/24/24 12/24/24 History Allergies Allergy/AdvReac Type Severity Reaction Status Date / Time No Known Allergies Allergy Verified 12/24/24 11:38 Physical Exam Vitals: Vital Signs Temp Pulse Pulse Resp BP BP Pulse Ox 12/24/24 15:00 98.1 F 93 22 100/72 12/24/24 14:21 101 H 20 93/72 98 12/24/24 13:04 98.0 F 93 93 20 91/70 91/70 100 12/24/24 10:17 110 H 22 94/71 100 12/24/24 09:53 98.1 F 118 H 22 98/76 12/24/24 09:40 121 H 20 98/76 100 12/24/24 09:04 102 H 20 99/77 98 12/24/24 08:52 98.0 F 108 H 22 92/66 100 12/24/24 07:53 112 H 22 105/76 99 12/24/24 07:10 98.2 F 12/24/24 07:04 115 H 20 104/91 Intake and Output 12/24/24 12/24/24 12/24/24 06:59 14:59 22:59 Other: Weight 49.895 kg General appearance: Revealed a 44-year-old white male looks frail, chronically ill, not in any distress Head: Atraumatic, normocephalic EENT: PERRLA, EOMI, nonicteric no neck masses no JVD no stridor Neck: Supple no neck masses no JVD Heart: Normal S1-S2, no S3 gallop, no murmur Lungs: Good breath sound bilaterally no crackles rhonchi or wheezes Abdomen: Flat soft nontender no rebound no guarding positive bowel sounds Skin: No rashes, no cyanosis Extremities: No clubbing edema or cyanosis Neurological: Alert oriented x 3 no gross focal neurologic deficit Psychiatric: Normal mood and affect and no mental status examination Results - Laboratory Findings CBC and BMP: 12/24/24 07:15 12/24/24 07:15 PT/INR, D-dimer PT 19.8 sec (10.0-12.5) H 12/24/24 07:15 INR 1.9 (<1.2) H 12/24/24 07:15 Abnormal lab findings: Abnormal Labs 12/24/24 12/24/24 12/24/24 07:10 07:15 07:15 WBC 13.81 H RBC 3.59 L Hgb 10.7 L Hct 31.5 L Immature Gran # 0.23 H Neutrophils # 10.86 H Monocytes # 1.35 H Eosinophils # 0.00 L PT 19.8 H INR 1.9 H Sodium Potassium Carbon Dioxide BUN Creatinine Glucose POC Glucose (mg/dL) 356 H Calcium Magnesium AST ALT Alkaline Phosphatase Ammonia Troponin I Total Protein Albumin Ur Specific [place] Urine Protein Urine Glucose (UA) Urine Ketones Urine RBC Urine Mucus U Tricyclic Antidepress U Benzodiazepines Scrn U Marijuana (THC) Screen 12/24/24 12/24/24 12/24/24 07:15 07:15 08:10 WBC RBC Hgb Hct Immature Gran # Neutrophils # Monocytes # Eosinophils # PT INR Sodium 135 L Potassium 2.3 L* Carbon Dioxide 16 L BUN 5 L Creatinine 0.31 L Glucose 339 H POC Glucose (mg/dL) Calcium 4.1 L* Magnesium 0.5 L* AST 223 H ALT 55 H Alkaline Phosphatase 209 H Ammonia 64 H 39 H Troponin I Total Protein 4.9 L Albumin 2.2 L Ur Specific [place] Urine Protein Urine Glucose (UA) Urine Ketones Urine RBC Urine Mucus U Tricyclic Antidepress U Benzodiazepines Scrn U Marijuana (THC) Screen 12/24/24 12/24/24 12/24/24 12:49 13:00 13:00 WBC RBC Hgb Hct Immature Gran # Neutrophils # Monocytes # Eosinophils # PT INR Sodium Potassium Carbon Dioxide BUN Creatinine Glucose POC Glucose (mg/dL) Calcium Magnesium AST ALT Alkaline Phosphatase Ammonia Troponin I 0.377 H* Total Protein Albumin Ur Specific [place] >1.050 H Urine Protein 1+ H Urine Glucose (UA) 3+ H Urine Ketones 1+ H Urine RBC 31 H Urine Mucus Rare H U Tricyclic Antidepress Detected H U Benzodiazepines Scrn Detected H U Marijuana (THC) Screen Detected H - Diagnostic Findings Additional studies: CT angiogram of the chest showed no acute abnormality except for scattered groundglass opacities in the right lung, possible related to aspiration, doubt pulmonary edema. Assessment and Plan Assessment: Impression: Ventricular tachycardia arrest most likely secondary to electrolytes imbalance with hypokalemia, hypomagnesemia and hypocalcemia Chronic pancreatitis Chronic GI symptoms Elevated ammonia level History of alcohol abuse History of splenic vein thrombosis, maintained on Eliquis History of syncope Chronic diarrhea with multiple electrolyte abnormalities Recommendation: Admit to ICU Continue present supportive care measures Address abnormal electrolytes and correct accordingly Continue GI DVT prophylaxis Continue lactulose for hyperammonemia Counseled regarding alcohol abstinence Antiemetics as needed Will continue to follow Time with Patient: Greater than 30
[2024-12-24] MEDS: PREGABALIN 100 MG CAP PO SCH (16:08)
[2024-12-24] MEDS: LIPASE 20,000/PROTEASE 63,000/AMYLASE 84,000 PO SCH (16:09)
[2024-12-24] MEDS: SODIUM CHLORIDE 0.9% 1,000 ML IV SCH (16:12)
[2024-12-24] MEDS: HEPARIN SODIUM,PORCINE 5,000 UNIT/ML 1 ML VIAL SQ SCH (17:16)
[2024-12-24] MEDS: PIPERACILLIN-TAZOBACTAM 3.375 GM in SODIUM CHLORIDE 0.9% 100 ML IVPB SCH (17:48)
--- NOTE | 2024-12-24 18:32 | CA ---
Transthoracic Echo Report Name: Juaquin Posada Age: 44 Gender: M : 1980 Exam Date: 12/24/2024 11:52 Exam Location: [facility] Ht (in): 66 Wt (lb): 110 Ordering Physician: Nasra Todd Attending/Referring Phys: [id number], Perez Auth Specialist Cintia Bee, RD Procedure CPT: Indications: cardiac arrest, hx of ETOH Cardiac Hx: Technical Quality: Contrast 1: Total Dose (mL): Contrast 2: Total Dose (mL): MEASUREMENTS (Male / Female) Normal Values 2D ECHO LV Diastolic Diameter PLAX 4.6 cm 4.2 - 5.9 / 3.9 - 5.3 cm LV Systolic Diameter PLAX 3.9 cm IVS Diastolic Thickness 1.0 cm 0.6 - 1.0 / 0.6 - 0.9 cm LVPW Diastolic Thickness 0.9 cm 0.6 - 1.0 / 0.6 - 0.9 cm LV Relative Wall Thickness 0.4 RV Internal Dim ED PLAX 2.7 cm LVOT Diameter 2.3 cm LA Systolic Diameter LX 3.1 cm 3.0 - 4.0 / 2.7 - 3.8 cm LV Diastolic Volume MOD 4C 131.6 cm??? LV Systolic Volume MOD 4C 83.2 cm??? LV Ejection Fraction MOD 4C 36.8 % LV Diastolic Length 4C 8.9 cm LV Systolic Length 4C 8.2 cm LV Diastolic Volume MOD 2C 86.0 cm??? LV Systolic Volume MOD 2C 58.3 cm??? LV Ejection Fraction MOD 2C 32.2 % LV Diastolic Length 2C 8.6 cm LV Systolic Length 2C 7.8 cm LA Volume 43.6 cm??? 18 - 58 / 22 - 52 cm??? LA Volume Index 28.8 cm???/m??? 16 - 28 cm???/m??? M-MODE Aortic Root Diameter MM 3.4 cm AV Cusp Separation MM 2.1 cm DOPPLER AV Peak Velocity 68.0 cm/s AV Peak Gradient 1.8 mmHg MV Area PHT 7.9 cm??? Mitral E Point Velocity 45.4 cm/s Mitral A Point Velocity 53.5 cm/s Mitral E to A Ratio 0.8 MV Deceleration Time 96.0 ms TR Peak Velocity 184.2 cm/s TR Peak Gradient 13.6 mmHg Right Ventricular Systolic Press 18.5 mmHg FINDINGS Left Ventricle Left ventricular ejection fraction is estimated at 20-25 %. Left ventricular cavity size normal. Anteroapical, apical lateral and apical akinesis. The findings could represent Takotsubo syndrome Right Ventricle Normal right ventricular size. Right ventricular systolic pressure within normal limits. Right Atrium Normal right atrial size. No right atrial thrombus or mass seen. Left Atrium Normal left atrial size. No left atrial thrombus or mass present. Mitral Valve Structurally normal mitral valve. No evidence for mitral valve prolapse. No mitral stenosis. mild mitral regurgitation. Aortic Valve Trileaflet aortic valve. No aortic valve stenosis . Mild aortic regurgitation. Tricuspid Valve Structurally normal tricuspid valve. mild tricuspid regurgitation. Pulmonic Valve No pulmonic regurgitation.pulmonic valve not well visualized. Pericardium No pericardial effusion. Aorta Normal size aortic root and proximal ascending aorta. CONCLUSIONS 1. Severely impaired left ventricular systolic function with segmental wall motion abnormality, cannot exclude Takotsubo syndrome 2. Mild aortic and mitral regurgitation 3. Mild tricuspid regurgitation Previewed by: Dr. Regan Coles MD (Electronically Signed) Final Date: 24 December 2024 18:31
[2024-12-24 19:37] LABS: Glucose,Whole Blood 226 mg/dL (70-110)
[2024-12-24] MEDS: LACTULOSE 20 GM/30 ML CUP PO SCH (21:00)
[2024-12-24 21:15] LABS: HCT 29.5 % (39.6-50.0); HGB 10.1 g/dL (13.0-17.0); MCH 30.0 pg (27.0-32.0); MCHC 34.2 g/dL (32.0-37.0); MCV 87.5 fL (80.0-97.0); Platelet Count 319 10*3/uL (140-440); RBC 3.37 10*6/uL (4.40-5.60); RDW 15.7 % (11.5-14.5); WBC 12.11 10*3/uL (4.50-10.00)
[2024-12-24 21:26] LABS: AST 164 U/L (17-59); African American GFR (CKD) >90 (>60 ml/min/1.73 sqM); Albumin 2.1 g/dL (3.5-5.0); Alkaline Phosphatase 226 U/L (38-126); Anion Gap 11 mmol/L; Blood Urea Nitrogen 3 mg/dL (9-20); Carbon Dioxide 23 mmol/L (22-30); Chloride 99 mmol/L (98-107); Glucose 111 mg/dL (74-99); Magnesium 1.0 mg/dL (1.6-2.3); Non-African American GFR(CKD) >90 (>60 ml/min/1.73 sqM); Sodium 133 mmol/L (137-145); Total Protein 4.9 g/dL (6.3-8.2)
[2024-12-24 21:32] LABS: ALT 53 U/L (4-49)
[2024-12-24 21:50] LABS: Calcium 4.1 mg/dL (8.4-10.2); Potassium 2.4 mmol/L (3.5-5.1)
[2024-12-24] MEDS ORDERED: Magnesium Replacement Protocol 1 EACH MISC MISCELLANE PRN (22:06)
[2024-12-24] MEDS ORDERED: Potassium Replacement Protocol 1 EACH MISC MISCELLANE PRN (22:07)
[2024-12-24] MEDS: CALCIUM GLUCONATE IN NACL 2 GM in SALINE 1 100ML.BAG IVPB SCH ×2 (22:33→23:29)
--- NOTE | 2024-12-24 22:41 | P.CONS ---
History of Present Illness - Reason for Consult Consult date: 12/24/24 Sepsis Requesting physician: Baron Groves - Chief Complaint Nausea vomiting abdominal pain and diarrhea x 2 days - History of Present Illness Patient is a 44-year-old male with a past medical history significant for CVA TIA reflux history of recurrent/chronic pancreatitis from alcoholism and hypertension patient was brought into the hospital early this morning by EMS who was called into the house for the mental status changes on arrival of the emergency patient was noticed to be lethargic did have a seizure-like episode and went unresponsive patient was found to be in ventricular tachycardia requiring CPR and 1 shock and subsequently the patient has been brought into the hospital patient been complaining of intractable nausea and vomiting over the last 2 days also complaining of epigastric abdominal pain mostly sharp moderate intensity and did have some diarrhea patient did not recall having any high- grade fever on presentation to the hospital the patient was afebrile no fever have recorded subsequently patient was tachycardic mildly hypotensive and hypoxic currently on 2 L nasal cannula oxygen patient did have a white count of 12.11 creatinine 0.28 calcium evaluate 4.1 liver enzymes are elevated lipase is normal urine is negative urine testing was positive for tricyclic and benzo and marijuana influenza RSV COVID testing negative patient did have a chest x-ray no acute pulmonary process he did have a CT angiogram of the chest that was neg ative for PE did shows groundglass opacity at the right apex and scattered areas of groundglass opacity within the right lung patient did have a abdominal pelvis CT diffuse wall thickening within the sigmoid colon and with ascending colon region correlate for colitis mild ileus may be present chronic pancreatitis with multiple calcification within the pancreas did not mention any pseudocyst or flu id around the pancreas patient has been admitted to the hospital infectious disease was consulted regarding sepsis Review of Systems Positive point and negatives has been mentioned in the HPI, complete review of systems was performed and all other systems are negative Past Medical History Past Medical History: CVA/TIA, GERD/Reflux, Hearing Disorder / Deafness, Hypertension, Musculoskeletal Disorder Additional Past Medical History / Comment(s): TIA, States needs MRI of brain. "High heart rate recently from the pain". Hiatal hernia. Chronic pancreatitis/pain. 4 slipped discs in back. Sore muscles. Mild hearing loss. History of Any Multi-Drug Resistant Organisms: None Reported Additional Past Surgical History / Comment(s): "Pseudocyst removed from s tomach". Past Anesthesia/Blood Transfusion Reactions: No Reported Reaction Past Psychological History: No Psychological Hx Reported Smoking Status: Current every day smoker Past Alcohol Use History: Abuse Past Drug Use History: Marijuana - Past Family History Father Family Medical History: Cancer Additional Family Medical History / Comment(s): Colon cancer. Medications and Allergies Home Medications Medication Instructions Recorded Confirmed Type Omeprazole 40 mg PO DAILY 08/02/23 12/24/24 History Lipase/Protease/Amylase [Man Dr 3 cap PO TID-W/MEALS 09/25/24 12/24/24 History 36,000 Unit Capsule] Apixaban [Eliquis] 5 mg PO BID 12/24/24 12/24/24 History Pregabalin [Lyrica] 200 mg PO TID 12/24/24 12/24/24 History Allergies Allergy/AdvReac Type Severity Reaction Status Date / Time No Known Allergies Allergy Verified 12/24/24 11:38 Physical Exam Vitals: Vital Signs Temp Pulse Pulse Resp BP BP Pulse Ox 12/24/24 15:00 98.1 F 93 22 100/72 12/24/24 14:21 101 H 20 93/72 98 12/24/24 13:04 98.0 F 93 93 20 91/70 91/70 100 12/24/24 10:17 110 H 22 94/71 100 12/24/24 09:53 98.1 F 118 H 22 98/76 12/24/24 09:40 121 H 20 98/76 100 12/24/24 09:04 102 H 20 99/77 98 12/24/24 08:52 98.0 F 108 H 22 92/66 100 12/24/24 07:53 112 H 22 105/76 99 12/24/24 07:10 98.2 F 12/24/24 07:04 115 H 20 104/91 Intake and Output 12/24/24 12/24/24 12/24/24 06:59 14:59 22:59 Other: Weight 49.895 kg GENERAL DESCRIPTION: Middle-age male lying in bed, no distress. No tachypnea or accessory muscle of respiration use. HEENT: Shows Pallor , no scleral icterus. Oral mucous membrane is dry. NECK: Trachea central, no thyromegaly. LUNGS: Unlabored breathing. Decreased breath sound at the base HEART: S1, S2, regular rate and rhythm. No loud murmur ABDOMEN: Soft, mild epigastric tenderness EXTREMITIES: No edema of feet. SKIN: No rash, no masses palpable. NEUROLOGICAL: The patient is awake, alert, oriented x3, mood and affect normal. Results CBC & Chem 7: 12/24/24 20:53 12/24/24 20:53 Labs: Abnormal Lab Results - Last 24 Hours (Table) 12/24/24 12/24/24 12/24/24 Range/Units 07:10 07:15 07:15 WBC 13.81 H (4.50-10.00) 10*3/uL RBC 3.59 L (4.40-5.60) 10*6/uL Hgb 10.7 L (13.0-17.0) g/dL Hct 31.5 L (39.6-50.0) % Immature Gran # 0.23 H (0.00-0.04) 10*3/uL Neutrophils # 10.86 H (1.80-7.70) 10*3/uL Monocytes # 1.35 H (0.20-1.00) 10*3/uL Eosinophils # 0.00 L (0.04-0.35) 10*3/uL PT 19.8 H (10.0-12.5) sec INR 1.9 H (<1.2) Sodium (137-145) mmol/L Potassium (3.5-5.1) mmol/L Carbon Dioxide (22-30) mmol/L BUN (9-20) mg/dL Creatinine (0.66-1.25) mg/dL Glucose (74-99) mg/dL POC Glucose (mg/dL) 356 H (70-110) mg/dL Calcium (8.4-10.2) mg/dL Magnesium (1.6-2.3) mg/dL AST (17-59) U/L ALT (4-49) U/L Alkaline Phosphatase (38-126) U/L Ammonia (<30) umol/L Troponin I (0.000-0.034) ng/mL Total Protein (6.3-8.2) g/dL Albumin (3.5-5.0) g/dL Ur Specific [place] (1.001-1.035) Urine Protein (Negative) Urine Glucose (UA) (Negative) Urine Ketones (Negative) Urine RBC (0-5) /hpf Urine Mucus (None) /hpf U Tricyclic Antidepress (NotDetected) U Benzodiazepines Scrn (NotDetected) U Marijuana (THC) Screen (NotDetected) 12/24/24 12/24/24 12/24/24 Range/Units 07:15 07:15 08:10 WBC (4.50-10.00) 10*3/uL RBC (4.40-5.60) 10*6/uL Hgb (13.0-17.0) g/dL Hct (39.6-50.0) % Immature Gran # (0.00-0.04) 10*3/uL Neutrophils # (1.80-7.70) 10*3/uL Monocytes # (0.20-1.00) 10*3/uL Eosinophils # (0.04-0.35) 10*3/uL PT (10.0-12.5) sec INR (<1.2) Sodium 135 L (137-145) mmol/L Potassium 2.3 L* (3.5-5.1) mmol/L Carbon Dioxide 16 L (22-30) mmol/L BUN 5 L (9-20) mg/dL Creatinine 0.31 L (0.66-1.25) mg/dL Glucose 339 H (74-99) mg/dL POC Glucose (mg/dL) (70-110) mg/dL Calcium 4.1 L* (8.4-10.2) mg/dL Magnesium 0.5 L* (1.6-2.3) mg/dL AST 223 H (17-59) U/L ALT 55 H (4-49) U/L Alkaline Phosphatase 209 H (38-126) U/L Ammonia 64 H 39 H (<30) umol/L Troponin I (0.000-0.034) ng/mL Total Protein 4.9 L (6.3-8.2) g/dL Albumin 2.2 L (3.5-5.0) g/dL Ur Specific [place] (1.001-1.035) Urine Protein (Negative) Urine Glucose (UA) (Negative) Urine Ketones (Negative) Urine RBC (0-5) /hpf Urine Mucus (None) /hpf U Tricyclic Antidepress (NotDetected) U Benzodiazepines Scrn (NotDetected) U Marijuana (THC) Screen (NotDetected) 12/24/24 12/24/24 12/24/24 Range/Units 12:49 13:00 13:00 WBC (4.50-10.00) 10*3/uL RBC (4.40-5.60) 10*6/uL Hgb (13.0-17.0) g/dL Hct (39.6-50.0) % Immature Gran # (0.00-0.04) 10*3/uL Neutrophils # (1.80-7.70) 10*3/uL Monocytes # (0.20-1.00) 10*3/uL Eosinophils # (0.04-0.35) 10*3/uL PT (10.0-12.5) sec INR (<1.2) Sodium (137-145) mmol/L Potassium (3.5-5.1) mmol/L Carbon Dioxide (22-30) mmol/L BUN (9-20) mg/dL Creatinine (0.66-1.25) mg/dL Glucose (74-99) mg/dL POC Glucose (mg/dL) (70-110) mg/dL Calcium (8.4-10.2) mg/dL Magnesium (1.6-2.3) mg/dL AST (17-59) U/L ALT (4-49) U/L Alkaline Phosphatase (38-126) U/L Ammonia (<30) umol/L Troponin I 0.377 H* (0.000-0.034) ng/mL Total Protein (6.3-8.2) g/dL Albumin (3.5-5.0) g/dL Ur Specific [place] >1.050 H (1.001-1.035) Urine Protein 1+ H (Negative) Urine Glucose (UA) 3+ H (Negative) Urine Ketones 1+ H (Negative) Urine RBC 31 H (0-5) /hpf Urine Mucus Rare H (None) /hpf U Tricyclic Antidepress Detected H (NotDetected) U Benzodiazepines Scrn Detected H (NotDetected) U Marijuana (THC) Screen Detected H (NotDetected) Assessment and Plan (1) Sepsis Current Visit: Yes Status: Acute Code(s): A41.9 - SEPSIS, UNSPECIFIED ORGANISM SNOMED Code(s): 13091338 (2) Aspiration pneumonitis Current Visit: Yes Status: Acute Code(s): J69.0 - PNEUMONITIS DUE TO INHALATION OF FOOD AND VOMIT SNOMED Code(s): 917784156 (3) Colitis Current Visit: Yes Status: Acute Code(s): K52.9 - NONINFECTIVE GASTROENTERITIS AND COLITIS, UNSPECIFIED SNOMED Code(s): 50231175 Plan: 1patient presented to hospital with sepsis in this patient who did have tachycardia hypotension elevated white count meeting criteria for SIRS source likely aspiration pneumonitis as the patient did have intractable nausea vomiting before the patient has been brought to the hospital patient also have abnormality on the abdominal pelvis CT concerning for colitis question of infectious etiology need to be ruled out patient did not recall if he has been on antibiotic in the recent past 2-we will try to obtain sputum for Gram stain and culture check a stool for C. difficile and stool culture 3-we will empirically treat the patient with Zosyn 3.375 g every 8 hours while waiting for the workup to be completed Question concern answered We will follow on clinical condition and cultures to further adjust medication if needed Thank you for this consultation we will follow the patient along with you Dictation was produced using [employer] dictation software. please excuse any grammatical, word or spelling errors. Time with Patient: Greater than 30
--- NOTE | 2024-12-24 22:54 | HP ---
HISTORY AND PHYSICAL CHIEF COMPLAINT: Cardiac arrest. HISTORY OF PRESENT ILLNESS: This 44-year-old gentleman with a past medical history of multiple medical problems including splenic and thrombosis pancreatitis alcohol, significant alcohol, was found to have some change in mental status this morning. After the EMS arrived, the patient had a brief cardiac arrest and 1 shock and CPR was initiated. The patient came back to the rhythm. The patient was brought to [facility]. The patient is much more alert at this time. The patient has significant electrolyte imbalance including hypokalemia, hyponatremia, and the patient admitted for evaluation and treatment. There is no history of fever, rigors, chills at this time. PAST MEDICAL HISTORY: GERD, history of CVA, history of TIA, history of EtOH, smoking. Rest of history and chart is also reviewed. HOME MEDICATIONS: Reviewed include Lyrica. Doses and rest of medications reviewed. ALLERGIES: None. FAMILY HISTORY: History of colon cancer in family. SOCIAL HISTORY: Polysubstance abuse. REVIEW OF SYSTEMS: Fourteen-point review is negative except as mentioned earlier. PHYSICAL EXAMINATION: VITAL SIGNS: Pulse is 118, blood pressure is 98/76, respirations 20. HEENT: Conjunctivae pale. Oral mucosa moist. NECK: Nontender. CARDIOVASCULAR: S1 and S2. ABDOMEN: Soft, nontender. LEGS: No edema. NERVOUS SYSTEM: Diffusely weak. LABORATORY DATA: Reviewed. ASSESSMENT: 1. Cardiac arrest, and ventricular tachycardia possibly secondary to electrolyte abnormalities. 2. Severe hypokalemia, hypomagnesemia and hypocalcemia. 3. ETOH. 4. Diabetes mellitus, type 2, uncontrolled. 5. History of pancreatitis. 6. Tachycardia. 7. Anemia. 8. Increased WBC. 9. Possible right lower lobe pneumonia, possibly aspiration. 10.Diffuse wall thickening of the recent sigmoid and ascending colon, possibly colitis with possible chronic pancreatitis. 11.Hepatic encephalopathy. RECOMMENDATION: This patient was admitted with multiple complex medical issues. We will monitor the patient closely. I would recommend monitor the lytes closely, most likely alcoholism is etiology. The patient also had multiple other complex medical issues associated with that. I would recommend empiric antibiotics, cultures. Obtained multiple consultation with Infectious Disease, Pulmonary and as well as Gastroenterology. The patient also tachycardic at this time. We will continue to monitor. Overall prognosis guarded because of multiple complex medical issues. See orders for details. Further recommendations to follow. MMODL / IJN: [id number] / MTDD
[2024-12-24] MEDS: POTASSIUM CHLORIDE ER 20 MEQ TAB.ER PO SCH (23:04)
[2024-12-25] MEDS: NOREPINEPHRINE 8 MG in SODIUM CHLORIDE 0.9% 250 ML IV SCH (05:38)
[2024-12-25 06:32] LABS: Basophils # (A) 0.01 10*3/uL (0.00-0.10); Basophils % (A) 0.1 %; Eosinophils # (A) 0.23 10*3/uL (0.04-0.35); Eosinophils % (A) 1.9 %; HCT 28.1 % (39.6-50.0); HGB 9.5 g/dL (13.0-17.0); Lymphocytes # (A) 1.62 10*3/uL (0.90-5.00); Lymphocytes % (A) 13.2 %; MCH 29.8 pg (27.0-32.0); MCHC 33.8 g/dL (32.0-37.0); MCV 88.1 fL (80.0-97.0); Monocytes # (A) 1.49 10*3/uL (0.20-1.00); Monocytes % (A) 12.2 %; Neutrophils # (A) 8.83 10*3/uL (1.80-7.70); Neutrophils % (A) 72.1 %; Platelet Count 323 10*3/uL (140-440); RBC 3.19 10*6/uL (4.40-5.60); RDW 15.6 % (11.5-14.5); WBC 12.24 10*3/uL (4.50-10.00)
[2024-12-25 06:47] LABS: ALT 40 U/L (4-49); AST 109 U/L (17-59); African American GFR (CKD) >90 (>60 ml/min/1.73 sqM); Albumin 1.7 g/dL (3.5-5.0); Alkaline Phosphatase 201 U/L (38-126); Anion Gap 9 mmol/L; Blood Urea Nitrogen <2 mg/dL (9-20); Carbon Dioxide 21 mmol/L (22-30); Chloride 101 mmol/L (98-107); Glucose 172 mg/dL (74-99); Magnesium 2.1 mg/dL (1.6-2.3); Non-African American GFR(CKD) >90 (>60 ml/min/1.73 sqM); Potassium 2.9 mmol/L (3.5-5.1); Sodium 131 mmol/L (137-145); Total Protein 4.3 g/dL (6.3-8.2)
[2024-12-25 06:53] LABS: Calcium 5.8 mg/dL (8.4-10.2)
[2024-12-25] MEDS ORDERED: Potassium Replacement Protocol 1 EACH MISC MISCELLANE PRN (07:04)
[2024-12-25] MEDS: HYDROcodone/APAP 5-325MG 1 EACH TAB PO PRN (08:35)
[2024-12-25] MEDS: POTASSIUM CHLORIDE ER 20 MEQ TAB.ER PO SCH ×2 (08:37→11:57)
[2024-12-25] MEDS: CALCIUM GLUCONATE IN NACL 1 GM in SALINE 1 100ML.BAG IVPB ONE (08:42)
[2024-12-25] MEDS: PANTOPRAZOLE 40 MG TABLET PO SCH (08:46)
[2024-12-25] MEDS: AMIODARONE 200 MG TAB PO SCH (08:46)
[2024-12-25] MEDS ORDERED: PANTOPRAZOLE 40 MG/10 ML VIAL IV SCH (09:00)
--- NOTE | 2024-12-25 10:35 | P.PN ---
Subjective Progress Note Date: 12/25/24 HPI: This gentleman is in sinus rhythm today. He is still having significant hypokalemia and this is being corrected. Patient has history of alcohol abuse and had significant electrolyte disturbances when he came in and had a ventricular tachycardia requiring brief CPR and to be shocked. He has wall mot ion abnormalities ejection fraction is less than 20%. However he will require coronary angiogram but the troponin profile does not suggest any significant myocardial injury. I am recommending that we optimize electrolyte imbalance and repeat echocardiogram on Sunday and consider cardiac catheterization at that time. Patient is malnourished has history of alcoholism but he has not taken any alcohol in the last 2 to 3 days.. PHYSICIAL EXAM: Vitals are stable S1-S2 heard normally no significant murmurs lungs reveal decent air entry abdomen is soft lower extremities reveal diminished pulses Central nervous system no focal deficits. IMPRESSION: 1. Electrolyte imbalance with ventricular tachycardia and brief CPR. 2. Alcohol abuse with electrolyte imbalance. 3. Alcoholic cardiomyopathy. 4. Hypokalemia. 5.. RECOMMENDATIONS: Supplement potassium, perform a limited echo on Sunday. He remains in a ectopic atrial rhythm. Change his amiodarone from IV to p.o. 200 mg daily wean off the Levophed that he is on a small dose no coronary angiogram today repeat echo and possible cath early next week cussed my thoughts in detail with the patient. Objective - Vital Signs Vital signs: Vital Signs Temp 98.4 F 12/25/24 04:00 Pulse 77 12/25/24 07:00 Resp 14 12/25/24 07:00 BP 88/65 12/25/24 07:00 Pulse Ox 98 12/25/24 07:00 FiO2 Intake & Output 12/24/24 12/25/24 12/25/24 18:59 06:59 18:59 Intake Total 2546.949 75 Output Total 400 Balance 2146.949 75 Weight 49.895 kg 51.6 kg Intake: Intake, IV Titration 2546.949 75 Amount Amiodarone 450 mg In 221.949 Dextrose 5% in Water 250 ml @ 0.5 MG/MIN 16.667 mls/hr IV .Q15H VLAD Rx#: [id number] Calcium Gluconate in NaCl 100 2 gm In Saline 1 100ml. bag @ 100 mls/hr IVPB Q3HR VLAD Rx#:[id number] Calcium Gluconate in NaCl 100 2 gm In Saline 1 100ml. bag @ 100 mls/hr IVPB Q3HR VLAD Rx#:[id number] Magnesium Sulfate-D5w Pmx 100 1 gm In Dextrose/Water 1 100ml.bag @ 100 mls/hr IVPB Q1H VLAD Rx#: [id number] Magnesium Sulfate-D5w Pmx 400 1 gm In Dextrose/Water 1 100ml.bag @ 100 mls/hr IVPB Q1H VLAD Rx#: [id number] Piperacillin-Tazobactam 3 200 .375 gm In Sodium Chloride 0.9% 100 ml @ 25 mls/hr IVPB Q8HR VLAD Rx# :[id number] Potassium Chloride 10 meq 600 In Water For Injection 1 100ml.bag @ 100 mls/hr IVPB Q1HR VLAD Rx#: [id number] Sodium Chloride 0.9% 1, 825 75 000 ml @ 75 mls/hr IV . [id number] VLAD Rx#:[id number] Output: Urine 400 Other: # Voids 0 0 - Labs CBC & Chem 7: 12/25/24 06:07 12/25/24 06:07 Labs: Abnormal Lab Results - Last 24 Hours (Table) 12/24/24 12/24/24 12/24/24 Range/Units 12:49 13:00 13:00 WBC (4.50-10.00) 10*3/uL RBC (4.40-5.60) 10*6/uL Hgb (13.0-17.0) g/dL Hct (39.6-50.0) % Immature Gran # (0.00-0.04) 10*3/uL Neutrophils # (1.80-7.70) 10*3/uL Monocytes # (0.20-1.00) 10*3/uL Sodium (137-145) mmol/L Potassium (3.5-5.1) mmol/L Carbon Dioxide (22-30) mmol/L BUN (9-20) mg/dL Creatinine (0.66-1.25) mg/dL Glucose (74-99) mg/dL POC Glucose (mg/dL) (70-110) mg/dL Calcium (8.4-10.2) mg/dL Ionized Calcium Cisco (4.5-5.3) mg/dL Magnesium (1.6-2.3) mg/dL AST (17-59) U/L ALT (4-49) U/L Alkaline Phosphatase (38-126) U/L Troponin I 0.377 H* (0.000-0.034) ng/mL Total Protein (6.3-8.2) g/dL Albumin (3.5-5.0) g/dL Ur Specific [place] >1.050 H (1.001-1.035) Urine Protein 1+ H (Negative) Urine Glucose (UA) 3+ H (Negative) Urine Ketones 1+ H (Negative) Urine RBC 31 H (0-5) /hpf Urine Mucus Rare H (None) /hpf U Tricyclic Antidepress Detected H (NotDetected) U Benzodiazepines Scrn Detected H (NotDetected) U Marijuana (THC) Screen Detected H (NotDetected) 12/24/24 12/24/24 12/24/24 Range/Units 15:48 19:35 20:53 WBC 12.11 H (4.50-10.00) 10*3/uL RBC 3.37 L (4.40-5.60) 10*6/uL Hgb 10.1 L (13.0-17.0) g/dL Hct 29.5 L (39.6-50.0) % Immature Gran # (0.00-0.04) 10*3/uL Neutrophils # (1.80-7.70) 10*3/uL Monocytes # (0.20-1.00) 10*3/uL Sodium (137-145) mmol/L Potassium (3.5-5.1) mmol/L Carbon Dioxide (22-30) mmol/L BUN (9-20) mg/dL Creatinine (0.66-1.25) mg/dL Glucose (74-99) mg/dL POC Glucose (mg/dL) 226 H (70-110) mg/dL Calcium (8.4-10.2) mg/dL Ionized Calcium Cisco (4.5-5.3) mg/dL Magnesium (1.6-2.3) mg/dL AST (17-59) U/L ALT (4-49) U/L Alkaline Phosphatase (38-126) U/L Troponin I 0.370 H* (0.000-0.034) ng/mL Total Protein (6.3-8.2) g/dL Albumin (3.5-5.0) g/dL Ur Specific [place] (1.001-1.035) Urine Protein (Negative) Urine Glucose (UA) (Negative) Urine Ketones (Negative) Urine RBC (0-5) /hpf Urine Mucus (None) /hpf U Tricyclic Antidepress (NotDetected) U Benzodiazepines Scrn (NotDetected) U Marijuana (THC) Screen (NotDetected) 12/24/24 12/25/24 12/25/24 Range/Units 20:53 06:07 06:07 WBC 12.24 H (4.50-10.00) 10*3/uL RBC 3.19 L (4.40-5.60) 10*6/uL Hgb 9.5 L (13.0-17.0) g/dL Hct 28.1 L (39.6-50.0) % Immature Gran # 0.06 H (0.00-0.04) 10*3/uL Neutrophils # 8.83 H (1.80-7.70) 10*3/uL Monocytes # 1.49 H (0.20-1.00) 10*3/uL Sodium 133 L 131 L (137-145) mmol/L Potassium 2.4 L* 2.9 L (3.5-5.1) mmol/L Carbon Dioxide 21 L (22-30) mmol/L BUN 3 L <2 L (9-20) mg/dL Creatinine 0.28 L 0.29 L (0.66-1.25) mg/dL Glucose 111 H 172 H (74-99) mg/dL POC Glucose (mg/dL) (70-110) mg/dL Calcium 4.1 L* 5.8 L* (8.4-10.2) mg/dL Ionized Calcium Cisco (4.5-5.3) mg/dL Magnesium 1.0 L (1.6-2.3) mg/dL AST 164 H 109 H (17-59) U/L ALT 53 H (4-49) U/L Alkaline Phosphatase 226 H 201 H (38-126) U/L Troponin I (0.000-0.034) ng/mL Total Protein 4.9 L 4.3 L (6.3-8.2) g/dL Albumin 2.1 L 1.7 L (3.5-5.0) g/dL Ur Specific [place] (1.001-1.035) Urine Protein (Negative) Urine Glucose (UA) (Negative) Urine Ketones (Negative) Urine RBC (0-5) /hpf Urine Mucus (None) /hpf U Tricyclic Antidepress (NotDetected) U Benzodiazepines Scrn (NotDetected) U Marijuana (THC) Screen (NotDetected) 12/25/24 Range/Units 07:12 WBC (4.50-10.00) 10*3/uL RBC (4.40-5.60) 10*6/uL Hgb (13.0-17.0) g/dL Hct (39.6-50.0) % Immature Gran # (0.00-0.04) 10*3/uL Neutrophils # (1.80-7.70) 10*3/uL Monocytes # (0.20-1.00) 10*3/uL Sodium (137-145) mmol/L Potassium (3.5-5.1) mmol/L Carbon Dioxide (22-30) mmol/L BUN (9-20) mg/dL Creatinine (0.66-1.25) mg/dL Glucose (74-99) mg/dL POC Glucose (mg/dL) (70-110) mg/dL Calcium (8.4-10.2) mg/dL Ionized Calcium Cisco 3.6 L (4.5-5.3) mg/dL Magnesium (1.6-2.3) mg/dL AST (17-59) U/L ALT (4-49) U/L Alkaline Phosphatase (38-126) U/L Troponin I (0.000-0.034) ng/mL Total Protein (6.3-8.2) g/dL Albumin (3.5-5.0) g/dL Ur Specific [place] (1.001-1.035) Urine Protein (Negative) Urine Glucose (UA) (Negative) Urine Ketones (Negative) Urine RBC (0-5) /hpf Urine Mucus (None) /hpf U Tricyclic Antidepress (NotDetected) U Benzodiazepines Scrn (NotDetected) U Marijuana (THC) Screen (NotDetected)
[2024-12-25] MEDS: NICOTINE 21MG/24HR PATCH TRANSDERM SCH (12:01)
--- NOTE | 2024-12-25 12:45 | P.PN ---
Subjective Progress Note Date: 12/25/24 Principal diagnosis: Colitis, pancreatitis This is a pleasant 44-year-old male who was brought in to the emergency department by EMS this morning secondary to patient with altered mental status changes, seizure-like activity and dizziness. 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 Patient states he remembers feeling dizzy and asked his roommate to call EMS. He does not remember much after that. Apparently when EMS arrived patient had some seizure-like activities and went unresponsive. He was hooked up to the monitor and found to be in ventricular tachycardia, CPR was started and administered 1 shock and patient rate resumed consciousness. Patient reports that he has been having nausea and vomiting for last couple days duration states his sugar was low. He has also been having diarrhea for the last 2 weeks up to 5/day. He has followed with gastroen terology for history of alcohol pancreatitis and large pseudocyst which he was following at [facility] and has had the cyst drained with stents. 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 States he last took his Eliquis yesterday. He denies any blood in his stool. States he is not drinking as much anymore and just drinks socially. Patient had significant altered laboratory work on admission. States he has some epigastric pain. He has had significant weight loss since his initial diagnosis of pancreatitis in pancreatic pseudocyst which she was diagnosed about 2 years ago. States he has had decreased appetite and not eating much. Patient denies any known history of alcohol liver disease. WBC 13.8 hemoglobin 10.7 platelet count 356,000 INR 1.9 sodium 135 potassium 2.3 BUN 5 creatinine 0.3 glucose 339 calcium 4.1 magnesium 0.5 total bilirubin 0.7 AST 223 ALT 55 alkaline phosphatase 209 ammonia 64 on admission repeat 39 troponin 0.377 lipase 81. Serum alcohol less than 10. 12/25/2024 Patient seen and examined today as a follow-up. He is in the ICU. He was on pressors overnight which have been discontinued. Currently on Zosyn. States he is feeling much better. Denies any abdominal pain states just feels more muscular. Denies any nausea or vomiting and no diarrhea. He has been afebrile. Today's labs WBC 12.2 hemoglobin 9.5 platelet count 323,000 sodium 131 potassium 2.9 BUN 2 creatinine 0.2 calcium 5.8 total bilirubin 0.9 AST 109 ALT 40 alkaline phosphatase 201 ammonia 16 Objective - Vital Signs Vital signs: Vital Signs Temp 97.8 F 12/25/24 08:00 Pulse 96 12/25/24 10:30 Resp 16 12/25/24 10:30 BP 90/64 12/25/24 10:30 Pulse Ox 99 12/25/24 10:30 FiO2 Intake & Output 12/24/24 12/25/24 12/25/24 18:59 06:59 18:59 Intake Total 2546.949 75 Output Total 400 Balance 2146.949 75 Weight 49.895 kg 51.6 kg Intake: Intake, IV Titration 2546.949 75 Amount Amiodarone 450 mg In 221.949 Dextrose 5% in Water 250 ml @ 0.5 MG/MIN 16.667 mls/hr IV .Q15H VLAD Rx#: [id number] Calcium Gluconate in NaCl 100 2 gm In Saline 1 100ml. bag @ 100 mls/hr IVPB Q3HR VLAD Rx#:[id number] Calcium Gluconate in NaCl 100 2 gm In Saline 1 100ml. bag @ 100 mls/hr IVPB Q3HR LVAD Rx#:[id number] Magnesium Sulfate-D5w Pmx 100 1 gm In Dextrose/Water 1 100ml.bag @ 100 mls/hr IVPB Q1H VLAD Rx#: [id number] Magnesium Sulfate-D5w Pmx 400 1 gm In Dextrose/Water 1 100ml.bag @ 100 mls/hr IVPB Q1H VLAD Rx#: [id number] Piperacillin-Tazobactam 3 200 .375 gm In Sodium Chloride 0.9% 100 ml @ 25 mls/hr IVPB Q8HR VLAD Rx# :[id number] Potassium Chloride 10 meq 600 In Water For Injection 1 100ml.bag @ 100 mls/hr IVPB Q1HR VLAD Rx#: [id number] Sodium Chloride 0.9% 1, 825 75 000 ml @ 75 mls/hr IV . [id number] VLAD Rx#:[id number] Output: Urine 400 Other: # Voids 0 0 - Exam General appearance: The patient is alert, oriented, appears in no acute distress. HET: Head is normocephalic and atraumatic. Conjunctiva pink. Sclera anicteric. Neck: Supple without lymphadenopathy. Abdomen: Soft, nontender, nondistended. Extremities: Normal skin color and turgor. No pedal edema Skin: No rashes, no jaundice Neurological: No focal deficits. Alert and oriented. - Labs CBC & Chem 7: 12/25/24 06:07 12/25/24 06:07 Labs: Abnormal Lab Results - Last 24 Hours (Table) 12/24/24 12/24/24 12/24/24 Range/Units 12:49 13:00 13:00 WBC (4.50-10.00) 10*3/uL RBC (4.40-5.60) 10*6/uL Hgb (13.0-17.0) g/dL Hct (39.6-50.0) % Immature Gran # (0.00-0.04) 10*3/uL Neutrophils # (1.80-7.70) 10*3/uL Monocytes # (0.20-1.00) 10*3/uL Sodium (137-145) mmol/L Potassium (3.5-5.1) mmol/L Carbon Dioxide (22-30) mmol/L BUN (9-20) mg/dL Creatinine (0.66-1.25) mg/dL Glucose (74-99) mg/dL POC Glucose (mg/dL) (70-110) mg/dL Calcium (8.4-10.2) mg/dL Ionized Calcium Cisco (4.5-5.3) mg/dL Magnesium (1.6-2.3) mg/dL AST (17-59) U/L ALT (4-49) U/L Alkaline Phosphatase (38-126) U/L Troponin I 0.377 H* (0.000-0.034) ng/mL Total Protein (6.3-8.2) g/dL Albumin (3.5-5.0) g/dL Ur Specific [place] >1.050 H (1.001-1.035) Urine Protein 1+ H (Negative) Urine Glucose (UA) 3+ H (Negative) Urine Ketones 1+ H (Negative) Urine RBC 31 H (0-5) /hpf Urine Mucus Rare H (None) /hpf U Tricyclic Antidepress Detected H (NotDetected) U Benzodiazepines Scrn Detected H (NotDetected) U Marijuana (THC) Screen Detected H (NotDetected) 12/24/24 12/24/24 12/24/24 Range/Units 15:48 19:35 20:53 WBC 12.11 H (4.50-10.00) 10*3/uL RBC 3.37 L (4.40-5.60) 10*6/uL Hgb 10.1 L (13.0-17.0) g/dL Hct 29.5 L (39.6-50.0) % Immature Gran # (0.00-0.04) 10*3/uL Neutrophils # (1.80-7.70) 10*3/uL Monocytes # (0.20-1.00) 10*3/uL Sodium (137-145) mmol/L Potassium (3.5-5.1) mmol/L Carbon Dioxide (22-30) mmol/L BUN (9-20) mg/dL Creatinine (0.66-1.25) mg/dL Glucose (74-99) mg/dL POC Glucose (mg/dL) 226 H (70-110) mg/dL Calcium (8.4-10.2) mg/dL Ionized Calcium Cisco (4.5-5.3) mg/dL Magnesium (1.6-2.3) mg/dL AST (17-59) U/L ALT (4-49) U/L Alkaline Phosphatase (38-126) U/L Troponin I 0.370 H* (0.000-0.034) ng/mL Total Protein (6.3-8.2) g/dL Albumin (3.5-5.0) g/dL Ur Specific [place] (1.001-1.035) Urine Protein (Negative) Urine Glucose (UA) (Negative) Urine Ketones (Negative) Urine RBC (0-5) /hpf Urine Mucus (None) /hpf U Tricyclic Antidepress (NotDetected) U Benzodiazepines Scrn (NotDetected) U Marijuana (THC) Screen (NotDetected) 12/24/24 12/25/24 12/25/24 Range/Units 20:53 06:07 06:07 WBC 12.24 H (4.50-10.00) 10*3/uL RBC 3.19 L (4.40-5.60) 10*6/uL Hgb 9.5 L (13.0-17.0) g/dL Hct 28.1 L (39.6-50.0) % Immature Gran # 0.06 H (0.00-0.04) 10*3/uL Neutrophils # 8.83 H (1.80-7.70) 10*3/uL Monocytes # 1.49 H (0.20-1.00) 10*3/uL Sodium 133 L 131 L (137-145) mmol/L Potassium 2.4 L* 2.9 L (3.5-5.1) mmol/L Carbon Dioxide 21 L (22-30) mmol/L BUN 3 L <2 L (9-20) mg/dL Creatinine 0.28 L 0.29 L (0.66-1.25) mg/dL Glucose 111 H 172 H (74-99) mg/dL POC Glucose (mg/dL) (70-110) mg/dL Calcium 4.1 L* 5.8 L* (8.4-10.2) mg/dL Ionized Calcium Cisco (4.5-5.3) mg/dL Magnesium 1.0 L (1.6-2.3) mg/dL AST 164 H 109 H (17-59) U/L ALT 53 H (4-49) U/L Alkaline Phosphatase 226 H 201 H (38-126) U/L Troponin I (0.000-0.034) ng/mL Total Protein 4.9 L 4.3 L (6.3-8.2) g/dL Albumin 2.1 L 1.7 L (3.5-5.0) g/dL Ur Specific [place] (1.001-1.035) Urine Protein (Negative) Urine Glucose (UA) (Negative) Urine Ketones (Negative) Urine RBC (0-5) /hpf Urine Mucus (None) /hpf U Tricyclic Antidepress (NotDetected) U Benzodiazepines Scrn (NotDetected) U Marijuana (THC) Screen (NotDetected) 12/25/24 Range/Units 07:12 WBC (4.50-10.00) 10*3/uL RBC (4.40-5.60) 10*6/uL Hgb (13.0-17.0) g/dL Hct (39.6-50.0) % Immature Gran # (0.00-0.04) 10*3/uL Neutrophils # (1.80-7.70) 10*3/uL Monocytes # (0.20-1.00) 10*3/uL Sodium (137-145) mmol/L Potassium (3.5-5.1) mmol/L Carbon Dioxide (22-30) mmol/L BUN (9-20) mg/dL Creatinine (0.66-1.25) mg/dL Glucose (74-99) mg/dL POC Glucose (mg/dL) (70-110) mg/dL Calcium (8.4-10.2) mg/dL Ionized Calcium Cisco 3.6 L (4.5-5.3) mg/dL Magnesium (1.6-2.3) mg/dL AST (17-59) U/L ALT (4-49) U/L Alkaline Phosphatase (38-126) U/L Troponin I (0.000-0.034) ng/mL Total Protein (6.3-8.2) g/dL Albumin (3.5-5.0) g/dL Ur Specific [place] (1.001-1.035) Urine Protein (Negative) Urine Glucose (UA) (Negative) Urine Ketones (Negative) Urine RBC (0-5) /hpf Urine Mucus (None) /hpf U Tricyclic Antidepress (NotDetected) U Benzodiazepines Scrn (NotDetected) U Marijuana (THC) Screen (NotDetected) Assessment and Plan (1) Diarrhea Narrative/Plan: 44-year-old presenting with altered mental status changes, cardiac arrest complaining of epigastric pain and diarrhea. Electrolyte imbalances. Stated 2 weeks of nonbloody diarrhea with CT evidence of diffuse wall thickening within the sigmoid colon and within the ascending colon correlate for possible colitis. Unclear etiology of diarrhea, possibly infectious. Will obtain stool cultures. Unclear etiology of diarrhea, possible gastroenteritis. Stool cultures pending. According to patient he states that he gets bouts of nausea vomiting and diarrhea. He is not sure if it is related to his drinking. No further diarrhea at this time. And nausea and vomiting have resolved as well. Discussed with patient recommend complete alcohol abstinence. Follow-up with gastroenterology in a couple weeks. Can further discuss recurrent episodes of diarrhea. Current Visit: Yes Status: Acute Code(s): R19.7 - DIARRHEA, UNSPECIFIED SNOMED Code(s): 66376667 (2) Elevated liver enzymes Narrative/Plan: Patient with elevated liver enzymes, with known history of alcoholism and a lcohol pancreatitis with splenic vein thrombosis. 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 Current Visit: Yes Status: Acute Code(s): R74.8 - ABNORMAL LEVELS OF OTHER SERUM ENZYMES SNOMED Code(s): 338240512 (3) Chronic pancreatitis Current Visit: Yes Status: Acute Code(s): K86.1 - OTHER CHRONIC PANCREATITIS SNOMED Code(s): 916228436 (4) Hypokalemia Current Visit: Yes Status: Acute Code(s): E87.6 - HYPOKALEMIA SNOMED Code(s): 18364818 (5) Alcoholism Narrative/Plan: Although patient initially stated that he was not drinking today he is admitting that he has been drinking and that he plans on quitting altogether. Current Visit: No Status: Acute Code(s): F10.20 - ALCOHOL DEPENDENCE, UNCOMPLICATED SNOMED Code(s): 1572023 (6) Hypocalcemia Current Visit: No Status: Acute Code(s): E83.51 - HYPOCALCEMIA SNOMED Co de(s): 3873914 (7) Hypomagnesemia Current Visit: Yes Status: Acute Code(s): E83.42 - HYPOMAGNESEMIA SNOMED Code(s): 303408772 (8) Splenic vein thrombosis Current Visit: No Status: Acute Code(s): I82.890 - ACUTE EMBOLISM AND THROMBOSIS OF OTHER SPECIFIED VEINS SNOMED Code(s): 95185342 (9) Hyperammonemia Current Visit: Yes Status: Acute Code(s): E72.20 - DISORDER OF UREA CYCLE METABOLISM, UNSPECIFIED SNOMED Code(s): 9860355 (10) Cardiac arrest Narrative/Plan: Cardiac arrest, V. tach Current Visit: Yes Status: Acute Code(s): I46.9 - CARDIAC ARREST, CAUSE UNSPECIFIED SNOMED Code(s): 740995846 Plan: 1. Continue symptomatic and supportive care 2. Diet as tolerated 3. Replace electrolytes per protocol 4. Antiemetics as needed 5. Stool culture ordered 6. May hold lactulose for now. Repeat ammonia level tomorrow. 7. Protonix 40 mg daily for GI prophylaxis 8. Continue with cardiology workup and recommendations 9. No plans for endoscopy 10. Recommend complete alcohol abstinence 11. Rest of medical management per primary medical team Thank you for this consultation, we will continue to follow. Dr. Rupert Rosario I agree with the dictator's note, documented as a scribe by Flora Quintana.
--- NOTE | 2024-12-25 13:50 | P.PN ---
Subjective Progress Note Date: 12/25/24 Principal diagnosis: Ventricular tachycardia cardiac arrest This is a 44-year-old white male brought into the emergency room earlier this morning by EMS with altered mental status and seizure-like activity. Apparently the patient is known to have past medical history of alcohol use, chronic pancreatitis, pancreatic pseudocyst, history of hypertension, previous history of TIA, patient had a sudden feeling of dizziness, and asked his roommate to call EMS. Apparently upon arrival of EMS he was found to have seizure-like activity and went unresponsive on the monitor the patient was noted to have ventricular tachycardia, CPR was started and the patient received 1 shock. P zaire became conscious again, and his rhythm came back with return of circulation. Apparently for the last few days the patient has been experiencing episodes of nausea and vomiting and episodes of low blood sugar. In addition, patient has been complaining of episodes of diarrhea for the last 2 weeks. Patient normally follows up at [facility] for his pancreatitis and pseudocyst. 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 And has been taking Eliquis until yesterday. Patient drinks occasionally at this point, used to be a heavy drinker in the past. I evaluated the patient in the ER, and considering his cardiac arrest history, I recommended admitting the patient to the ICU, and he is to be seen by other consultants including cardiology. During my evaluation the patient was not in any distress, he was hemodynamically stable, all his labs were reviewed. Patient was seen today on 12/25/2024, remains in the ICU mostly because of his profound electrolyte abnormalities including hypocalcemia, hypomagnesium , hypokalemia, these are all being addressed accordingly mostly related to his GI symptoms and his pancreatitis. As well as diarrhea and nausea and vomiting. Patient is not in any distress, he is on 2 L nasal cannula, has been receiving potassium almost every 2 hours 20 mEq orally remains empirically on Zosyn, continues to have some vague abdominal pain and discomfort. WBC count today is 12.2 hemoglobin 9.5 electrolytes showed low sodium of 131 low potassium 2.9 but few hours later it was up to 3.8 renal functioning is normal calcium is up to 5.8 today. Add magnesium is up to 2.1, these are all being addressed daily. Cardiac sheppard the patient is in sinus rhythm, no further episodes of tachyarrhythmia. Objective - Vital Signs Vital signs: Vital Signs Temp 97.8 F 12/25/24 08:00 Pulse 96 12/25/24 10:30 Resp 16 12/25/24 10:30 BP 90/64 12/25/24 10:30 Pulse Ox 99 12/25/24 10:30 FiO2 Intake & Output 12/24/24 12/25/24 12/25/24 18:59 06:59 18:59 Intake Total 2546.949 875 Output Total 400 Balance 2146.949 875 Weight 49.895 kg 51.6 kg 51.6 kg Intake: IV 300 Sodium Chloride 0.9% 1, 300 000 ml @ 75 mls/hr IV . [id number] VLAD Rx#:[id number] Intake, IV Titration 2546.949 75 Amount Amiodarone 450 mg In 221.949 Dextrose 5% in Water 250 ml @ 0.5 MG/MIN 16.667 mls/hr IV .Q15H VLAD Rx#: [id number] Calcium Gluconate in NaCl 100 2 gm In Saline 1 100ml. bag @ 100 mls/hr IVPB Q3HR VLAD Rx#:[id number] Calcium Gluconate in NaCl 100 2 gm In Saline 1 100ml. bag @ 100 mls/hr IVPB Q3HR VLAD Rx#:[id number] Magnesium Sulfate-D5w Pmx 100 1 gm In Dextrose/Water 1 100ml.bag @ 100 mls/hr IVPB Q1H VLAD Rx#: [id number] Magnesium Sulfate-D5w Pmx 400 1 gm In Dextrose/Water 1 100ml.bag @ 100 mls/hr IVPB Q1H VLAD Rx#: [id number] Piperacillin-Tazobactam 3 200 .375 gm In Sodium Chloride 0.9% 100 ml @ 25 mls/hr IVPB Q8HR VLAD Rx# :[id number] Potassium Chloride 10 meq 600 In Water For Injection 1 100ml.bag @ 100 mls/hr IVPB Q1HR VLAD Rx#: [id number] Sodium Chloride 0.9% 1, 825 75 000 ml @ 75 mls/hr IV . [id number] VLAD Rx#:[id number] Oral 500 Output: Urine 400 Other: # Voids 0 0 - Exam General appearance: Revealed a 44-year-old white male looks frail, chronically ill, not in any distress Head: Atraumatic, normocephalic EENT: PERRLA, EOMI, nonicteric no neck masses no JVD no stridor Neck: Supple no neck masses no JVD Heart: Normal S1-S2, no S3 gallop, no murmur Lungs: Good breath sound bilaterally no crackles rhonchi or wheezes Abdomen: Flat soft nontender no rebound no guarding positive bowel sounds Skin: No rashes, no cyanosis Extremities: No clubbing edema or cyanosis Neurological: Alert oriented x 3 no gross focal neurologic deficit Psychiatric: Normal mood and affect and no mental status examination - Labs CBC & Chem 7: 12/25/24 06:07 12/25/24 12:24 Labs: Abnormal Lab Results - Last 24 Hours (Table) 12/24/24 12/24/24 12/24/24 Range/Units 13:00 15:48 19:35 WBC (4.50-10.00) 10*3/uL RBC (4.40-5.60) 10*6/uL Hgb (13.0-17.0) g/dL Hct (39.6-50.0) % Immature Gran # (0.00-0.04) 10*3/uL Neutrophils # (1.80-7.70) 10*3/uL Monocytes # (0.20-1.00) 10*3/uL Sodium (137-145) mmol/L Potassium (3.5-5.1) mmol/L Carbon Dioxide (22-30) mmol/L BUN (9-20) mg/dL Creatinine (0.66-1.25) mg/dL Glucose (74-99) mg/dL POC Glucose (mg/dL) 226 H (70-110) mg/dL Calcium (8.4-10.2) mg/dL Ionized Calcium Cisco (4.5-5.3) mg/dL Magnesium (1.6-2.3) mg/dL AST (17-59) U/L ALT (4-49) U/L Alkaline Phosphatase (38-126) U/L Troponin I 0.370 H* (0.000-0.034) ng/mL Total Protein (6.3-8.2) g/dL Albumin (3.5-5.0) g/dL Ur Specific [place] >1.050 H (1.001-1.035) Urine Protein 1+ H (Negative) Urine Glucose (UA) 3+ H (Negative) Urine Ketones 1+ H (Negative) Urine RBC 31 H (0-5) /hpf Urine Mucus Rare H (None) /hpf 12/24/24 12/24/24 12/25/24 Range/Units 20:53 20:53 06:07 WBC 12.11 H 12.24 H (4.50-10.00) 10*3/uL RBC 3.37 L 3.19 L (4.40-5.60) 10*6/uL Hgb 10.1 L 9.5 L (13.0-17.0) g/dL Hct 29.5 L 28.1 L (39.6-50.0) % Immature Gran # 0.06 H (0.00-0.04) 10*3/uL Neutrophils # 8.83 H (1.80-7.70) 10*3/uL Monocytes # 1.49 H (0.20-1.00) 10*3/uL Sodium 133 L (137-145) mmol/L Potassium 2.4 L* (3.5-5.1) mmol/L Carbon Dioxide (22-30) mmol/L BUN 3 L (9-20) mg/dL Creatinine 0.28 L (0.66-1.25) mg/dL Glucose 111 H (74-99) mg/dL POC Glucose (mg/dL) (70-110) mg/dL Calcium 4.1 L* (8.4-10.2) mg/dL Ionized Calcium Cisco (4.5-5.3) mg/dL Magnesium 1.0 L (1.6-2.3) mg/dL AST 164 H (17-59) U/L ALT 53 H (4-49) U/L Alkaline Phosphatase 226 H (38-126) U/L Troponin I (0.000-0.034) ng/mL Total Protein 4.9 L (6.3-8.2) g/dL Albumin 2.1 L (3.5-5.0) g/dL Ur Specific [place] (1.001-1.035) Urine Protein (Negative) Urine Glucose (UA) (Negative) Urine Ketones (Negative) Urine RBC (0-5) /hpf Urine Mucus (None) /hpf 12/25/24 12/25/24 Range/Units 06:07 07:12 WBC (4.50-10.00) 10*3/uL RBC (4.40-5.60) 10*6/uL Hgb (13.0-17.0) g/dL Hct (39.6-50.0) % Immature Gran # (0.00-0.04) 10*3/uL Neutrophils # (1.80-7.70) 10*3/uL Monocytes # (0.20-1.00) 10*3/uL Sodium 131 L (137-145) mmol/L Potassium 2.9 L (3.5-5.1) mmol/L Carbon Dioxide 21 L (22-30) mmol/L BUN <2 L (9-20) mg/dL Creatinine 0.29 L (0.66-1.25) mg/dL Glucose 172 H (74-99) mg/dL POC Glucose (mg/dL) (70-110) mg/dL Calcium 5.8 L* (8.4-10.2) mg/dL Ionized Calcium Cisco 3.6 L (4.5-5.3) mg/dL Magnesium (1.6-2.3) mg/dL AST 109 H (17-59) U/L ALT (4-49) U/L Alkaline Phosphatase 201 H (38-126) U/L Troponin I (0.000-0.034) ng/mL Total Protein 4.3 L (6.3-8.2) g/dL Albumin 1.7 L (3.5-5.0) g/dL Ur Specific [place] (1.001-1.035) Urine Protein (Negative) Urine Glucose (UA) (Negative) Urine Ketones (Negative) Urine RBC (0-5) /hpf Urine Mucus (None) /hpf Assessment and Plan Assessment: Impression: Ventricular tachycardia arrest most likely secondary to electrolytes imbalance with hypokalemia, hypomagnesemia and hypocalcemia Chronic pancreatitis Chronic GI symptoms Elevated ammonia level History of alcohol abuse History of splenic vein thrombosis, maintained on Eliquis History of syncope Chronic diarrhea with multiple electrolyte abnormalities Recommendation: Continue to monitor in the ICU because of his profound electrolyte abnormalities Continue present supportive care measures Continue GI DVT prophylaxis Discontinue lactulose, ammonia level is now normal Counseled regarding alcohol abstinence Will continue to follow Time with Patient: Less than 30
--- NOTE | 2024-12-25 16:21 | P.PN ---
Subjective Progress Note Date: 12/25/24 Principal diagnosis: Reason for follow-up is pneumonia/colitis Patient is a 44-year-old male with a past medical history significant for CVA TIA reflux history of recurrent/chronic pancreatitis from alcoholism and hypertension patient was brought into the hospital for lethargy seizure activity did have a cardiac arrest/V. tach requiring shock and subsequent admitted to the hospital. On today's evaluation that is 12/25/2024,the patient did have a temperature 100.3 F this afternoon, patient is on 4 L nasal cannula supplemental oxygen and denies any shortness of breath no chest pain or any worsening cough.Patient still complaining of some nausea but no vomiting abdominal pain and diarrhea. Patient white count is 12.24, creatinine 0.29 Objective - Vital Signs Vital signs: Vital Signs Temp 100.3 F H 12/25/24 16:00 Pulse 78 12/25/24 16:00 Resp 16 12/25/24 16:00 BP 99/76 12/25/24 16:00 Pulse Ox 97 12/25/24 16:00 FiO2 Intake & Output 12/24/24 12/25/24 12/25/24 18:59 06:59 18:59 Intake Total 150 2546.949 1350 Output Total 400 180 Balance 150 2146.949 1170 Weight 49.895 kg 51.6 kg 51.6 kg Intake: IV 150 525 Sodium Chloride 0.9% 1, 150 525 000 ml @ 75 mls/hr IV . [id number] VLAD Rx#:[id number] Intake, IV Titration 2546.949 75 Amount Amiodarone 450 mg In 221.949 Dextrose 5% in Water 250 ml @ 0.5 MG/MIN 16.667 mls/hr IV .Q15H VLAD Rx#: [id number] Calcium Gluconate in NaCl 100 2 gm In Saline 1 100ml. bag @ 100 mls/hr IVPB Q3HR VLAD Rx#:[id number] Calcium Gluconate in NaCl 100 2 gm In Saline 1 100ml. bag @ 100 mls/hr IVPB Q3HR VLAD Rx#:[id number] Magnesium Sulfate-D5w Pmx 100 1 gm In Dextrose/Water 1 100ml.bag @ 100 mls/hr IVPB Q1H VLAD Rx#: [id number] Magnesium Sulfate-D5w Pmx 400 1 gm In Dextrose/Water 1 100ml.bag @ 100 mls/hr IVPB Q1H VLAD Rx#: [id number] Piperacillin-Tazobactam 3 200 .375 gm In Sodium Chloride 0.9% 100 ml @ 25 mls/hr IVPB Q8HR VLAD Rx# :[id number] Potassium Chloride 10 meq 600 In Water For Injection 1 100ml.bag @ 100 mls/hr IVPB Q1HR VLAD Rx#: [id number] Sodium Chloride 0.9% 1, 825 75 000 ml @ 75 mls/hr IV . [id number] VLAD Rx#:[id number] Oral 750 Output: Urine 400 180 Other: # Voids 0 0 - Exam GENERAL DESCRIPTION: Middle-age male lying in bed in no distress RESPIRATORY SYSTEM: Unlabored breathing , decreased breath sounds at bases HEART: S1 S2 regular rate and rhythm , ABDOMEN: Soft , no tenderness EXTREMITIES: No edema feet - Labs CBC & Chem 7: 12/25/24 06:07 12/25/24 12:24 Labs: Abnormal Lab Results - Last 24 Hours (Table) 12/24/24 12/24/24 12/24/24 Range/Units 15:48 19:35 20:53 WBC 12.11 H (4.50-10.00) 10*3/uL RBC 3.37 L (4.40-5.60) 10*6/uL Hgb 10.1 L (13.0-17.0) g/dL Hct 29.5 L (39.6-50.0) % Immature Gran # (0.00-0.04) 10*3/uL Neutrophils # (1.80-7.70) 10*3/uL Monocytes # (0.20-1.00) 10*3/uL Sodium (137-145) mmol/L Potassium (3.5-5.1) mmol/L Carbon Dioxide (22-30) mmol/L BUN (9-20) mg/dL Creatinine (0.66-1.25) mg/dL Glucose (74-99) mg/dL POC Glucose (mg/dL) 226 H (70-110) mg/dL Calcium (8.4-10.2) mg/dL Ionized Calcium Cisco (4.5-5.3) mg/dL Magnesium (1.6-2.3) mg/dL AST (17-59) U/L ALT (4-49) U/L Alkaline Phosphatase (38-126) U/L Troponin I 0.370 H* (0.000-0.034) ng/mL Total Protein (6.3-8.2) g/dL Albumin (3.5-5.0) g/dL 12/24/24 12/25/24 12/25/24 Range/Units 20:53 06:07 06:07 WBC 12.24 H (4.50-10.00) 10*3/uL RBC 3.19 L (4.40-5.60) 10*6/uL Hgb 9.5 L (13.0-17.0) g/dL Hct 28.1 L (39.6-50.0) % Immature Gran # 0.06 H (0.00-0.04) 10*3/uL Neutrophils # 8.83 H (1.80-7.70) 10*3/uL Monocytes # 1.49 H (0.20-1.00) 10*3/uL Sodium 133 L 131 L (137-145) mmol/L Potassium 2.4 L* 2.9 L (3.5-5.1) mmol/L Carbon Dioxide 21 L (22-30) mmol/L BUN 3 L <2 L (9-20) mg/dL Creatinine 0.28 L 0.29 L (0.66-1.25) mg/dL Glucose 111 H 172 H (74-99) mg/dL POC Glucose (mg/dL) (70-110) mg/dL Calcium 4.1 L* 5.8 L* (8.4-10.2) mg/dL Ionized Calcium Cisco (4.5-5.3) mg/dL Magnesium 1.0 L (1.6-2.3) mg/dL AST 164 H 109 H (17-59) U/L ALT 53 H (4-49) U/L Alkaline Phosphatase 226 H 201 H (38-126) U/L Troponin I (0.000-0.034) ng/mL Total Protein 4.9 L 4.3 L (6.3-8.2) g/dL Albumin 2.1 L 1.7 L (3.5-5.0) g/dL 12/25/24 Range/Units 07:12 WBC (4.50-10.00) 10*3/uL RBC (4.40-5.60) 10*6/uL Hgb (13.0-17.0) g/dL Hct (39.6-50.0) % Immature Gran # (0.00-0.04) 10*3/uL Neutrophils # (1.80-7.70) 10*3/uL Monocytes # (0.20-1.00) 10*3/uL Sodium (137-145) mmol/L Potassium (3.5-5.1) mmol/L Carbon Dioxide (22-30) mmol/L BUN (9-20) mg/dL Creatinine (0.66-1.25) mg/dL Glucose (74-99) mg/dL POC Glucose (mg/dL) (70-110) mg/dL Calcium (8.4-10.2) mg/dL Ionized Calcium Cisco 3.6 L (4.5-5.3) mg/dL Magnesium (1.6-2.3) mg/dL AST (17-59) U/L ALT (4-49) U/L Alkaline Phosphatase (38-126) U/L Troponin I (0.000-0.034) ng/mL Total Protein (6.3-8.2) g/dL Albumin (3.5-5.0) g/dL Assessment and Plan (1) Sepsis Current Visit: Yes Status: Acute Code(s): A41.9 - SEPSIS, UNSPECIFIED ORGANISM SNOMED Code(s): 76329301 (2) Aspiration pneumonitis Current Visit: Yes Status: Acute Code(s): J69.0 - PNEUMONITIS DUE TO INHALATION OF FOOD AND VOMIT SNOMED Code(s): 783134354 (3) Colitis Current Visit: Yes Status: Acute Code(s): K52.9 - NONINFECTIVE GASTROENTERITIS AND COLITIS, UNSPECIFIED SNOMED Code(s): 82127044 Plan: 1patient presented to hospital with sepsis in this patient who did have tachycardia hypotension elevated white count meeting criteria for SIRS source likely aspiration pneumonitis as the patient did have intractable nausea vomiting before the patient has been brought to the hospital patient also have abnormality on the abdominal pelvis CT concerning for colitis question of infectious etiology need to be ruled out patient did not recall if he has been on antibiotic in the recent past 2-sputum as well as stool studies has not been collected 3-patient to continue Zosyn 3.375 g every 8 hours while waiting for the workup to be completed Question concern answered Dictation was produced using [email or web address] dictation software. please excuse any grammatical, word or spelling errors. Time with Patient: Less than 30
--- NOTE | 2024-12-25 18:14 | PN ---
PROGRESS NOTE DATE OF SERVICE: 12/25/2024 SUBJECTIVE: This is a 44-year-old gentleman admitted with cardiac arrest possibly secondary to ventricular tachycardia secondary to alcohol intake, as well as severe electrolyte imbalance, is being closely monitored at this time. Cardiology is following the patient closely. Amiodarone has been initiated, catheterization next week has been considered by Cardiology. The patient also had evidences of colitis. The 2D echo with Doppler showed severe impaired LV function with segmental wall abnormality, takotsubo cannot be excluded. PAST MEDICAL HISTORY: Reviewed. REVIEW OF SYSTEMS: A 14-point review of systems negative except as mentioned earlier. CURRENT MEDICATIONS: Reviewed. PHYSICAL EXAMINATION: VITAL SIGNS: Pulse 105, blood pressure 112/76, respirations 18. HEENT: Conjunctivae normal. CARDIOVASCULAR: S1 and S2. RESPIRATIONS: Breath sounds diminished at the bases. ABDOMEN: Soft. NERVOUS SYSTEM: Diffusely weak. LABORATORY DATA: Sodium 130, potassium 2.9 improved to 3.8, calcium is 5.8, and albumin is 1.7. ASSESSMENT: 1. Cardiac arrest, possibly secondary to ventricular tachycardia secondary to multiple electrolyte abnormalities. 2. Severe hypokalemia, severe hypomagnesemia, and severe hypocalcemia. 3. ETOH. 4. Possible acute colitis. 5. Diabetes mellitus, type 2, uncontrolled. 6. History of pancreatitis. 7. Tachycardia. 8. Anemia. 9. Possible cardiomyopathy with impaired LV systolic function with segmental wall abnormality, rule out coronary artery disease. 10.Ejection fraction 40%. 11.Possible right lower pneumonia, possibly aspiration. 12.Hepatic encephalopathy. RECOMMENDATIONS: Recommend to continue current management and continue symptomatic treatment. Otherwise recommend to continue the antibiotics. Monitor lytes and repeat lytes. I would also recommend to continue with calcium supplementation as well and continue with the broad- spectrum IV antibiotics. Closely follow with multiple consultants and the cultures are negative so far. Guarded prognosis. Further recommendations to follow. Repeat labs. Repeat chest x-ray. MMODL / IJN: [id number] /
[2024-12-25] MEDS: SIMETHICONE 80 MG CHEWABLE PO SCH (20:16)
[2024-12-25 20:56] LABS: HIV 2 AB Non-Reactive (Non-Reactive); HIV AB P24 Non-Reactive (Non-Reactive); HIV P24 AG Non-Reactive (Non-Reactive)
[2024-12-25] MEDS ORDERED: POTASSIUM CHLORIDE ER 20 MEQ TAB.ER PO SCH (22:07)
[2024-12-25] MEDS: LORazepam 1 MG/0.5 ML VIAL IV PRN (22:26)
[2024-12-26 07:07] LABS: Basophils # (A) 0.02 10*3/uL (0.00-0.10); Basophils % (A) 0.2 %; Eosinophils # (A) 0.13 10*3/uL (0.04-0.35); Eosinophils % (A) 1.2 %; HCT 28.0 % (39.6-50.0); HGB 9.1 g/dL (13.0-17.0); Lymphocytes # (A) 1.96 10*3/uL (0.90-5.00); Lymphocytes % (A) 17.8 %; MCH 29.2 pg (27.0-32.0); MCHC 32.5 g/dL (32.0-37.0); MCV 89.7 fL (80.0-97.0); Monocytes # (A) 1.19 10*3/uL (0.20-1.00); Monocytes % (A) 10.8 %; Neutrophils # (A) 7.66 10*3/uL (1.80-7.70); Neutrophils % (A) 69.4 %; Platelet Count 317 10*3/uL (140-440); RBC 3.12 10*6/uL (4.40-5.60); RDW 16.0 % (11.5-14.5); WBC 11.03 10*3/uL (4.50-10.00)
--- NOTE | 2024-12-26 07:19 | P.PN ---
Subjective Progress Note Date: 12/26/24 12/25/24 HPI: This gentleman is in sinus rhythm today. He is still having significant hypokalemia and this is being corrected. Patient has history of alcohol abuse and had significant electrolyte disturbances when he came in and had a ventricular tachycardia requiring brief CPR and to be shocked. He has wall motion abnormalities ejection fraction is less than 20%. However he will require coronary angiogram but the troponin profile does not suggest any significant myocardial injury. I am recommending that we optimize electrolyte imbalance and repeat echocardiogram on Sunday and consider cardiac c atheterization at that time. Patient is malnourished has history of alcoholism but he has not taken any alcohol in the last 2 to 3 days.. PHYSICIAL EXAM: Vitals are stable S1-S2 heard normally no significant murmurs lungs reveal decent air entry abdomen is soft lower extremities reveal diminished pulses Central nervous system no focal deficits. IMPRESSION: 1. Electrolyte imbalance with ventricular tachycardia and brief CPR. 2. Alcohol abuse with electrolyte imbalance. 3. Alcoholic cardiomyopathy. 4. Hypokalemia. 5.. RECOMMENDATIONS: Supplement potassium, perform a limited echo on Sunday. He remains in a ectopic atrial rhythm. Change his amiodarone from IV to p.o. 200 mg daily wean off the Levophed that he is on a small dose no coronary angiogram today repeat echo and possible cath early next week cussed my thoughts in detail with the patient. 12/26/24 This gentleman is in sinus rhythm feels well no chest pain or shortness of breath his potassium has been corrected it is 4.4 yesterday today's labs are pending. He has alcoholism malnutrition electrolyte imbalance which have resolved. I am recommending a repeat echo on Sunday and consider cardiac cath at that time. Clinical picture suggests alcoholic cardiomyopathy but patient had significant electrolyte imbalance which has improved. Today's labs are pending. PHYSICIAL EXAM: Vitals are stable S1-S2 heard normally no significant murmurs lungs reveal decent air entry abdomen is soft lower extremities reveal diminis hed pulses Central nervous system no focal deficits. IMPRESSION: 1. Electrolyte imbalance with ventricular tachycardia and brief CPR. 2. Alcohol abuse with electrolyte imbalance. 3. Alcoholic cardiomyopathy. 4. Hypokalemia. Recommendations: Will continue current supportive care can move him to telemetry echocardiogram on Sunday and consider coronary angiogram at that time. Awaiting labs from today including calcium levels. Objective - Vital Signs Vital signs: Vital Signs Temp 98.0 F 12/26/24 04:00 Pulse 101 H 12/26/24 07:00 Resp 18 12/26/24 07:00 BP 103/88 12/26/24 07:00 Pulse Ox 90 L 12/26/24 07:00 FiO2 Intake & Output 12/25/24 12/26/24 12/26/24 18:59 06:59 18:59 Intake Total 1376.840 900 75 Output Total 180 500 0 Balance 1196.840 400 75 Weight 51.6 kg 51.6 kg Intake: IV 675 900 75 Sodium Chloride 0.9% 1, 675 900 75 000 ml @ 75 mls/hr IV . [id number] VLAD Rx#:[id number] Intake, IV Titration 81.840 Amount Norepinephrine 8 mg In 6.840 Sodium Chloride 0.9% 250 ml @ 0.03 MCG/KG/MIN 2. 995 mls/hr IV .Q24H VLAD Rx#:[id number] Sodium Chloride 0.9% 1, 75 000 ml @ 75 mls/hr IV . [id number] VLAD Rx#:[id number] Oral 620 Output: Urine 180 500 0 Other: # Voids 0 1 - Labs CBC & Chem 7: 12/26/24 06:01 12/25/24 15:57 Labs: Abnormal Lab Results - Last 24 Hours (Table) 12/25/24 12/26/24 Range/Units 07:12 06:01 WBC 11.03 H (4.50-10.00) 10*3/uL RBC 3.12 L (4.40-5.60) 10*6/uL Hgb 9.1 L (13.0-17.0) g/dL Hct 28.0 L (39.6-50.0) % Immature Gran # 0.07 H (0.00-0.04) 10*3/uL Monocytes # 1.19 H (0.20-1.00) 10*3/uL Ionized Calcium Cisco 3.6 L (4.5-5.3) mg/dL Microbiology - Last 24 Hours (Table) 12/24/24 13:00 Urine Culture - Final Urine,Clean Catch 12/24/24 08:18 Blood Culture - Preliminary Blood
[2024-12-26 07:23] LABS: ALT 57 U/L (4-49); AST 140 U/L (17-59); African American GFR (CKD) >90 (>60 ml/min/1.73 sqM); Albumin 1.9 g/dL (3.5-5.0); Alkaline Phosphatase 233 U/L (38-126); Anion Gap 8 mmol/L; Blood Urea Nitrogen <2 mg/dL (9-20); Carbon Dioxide 19 mmol/L (22-30); Chloride 106 mmol/L (98-107); Glucose 129 mg/dL (74-99); Non-African American GFR(CKD) >90 (>60 ml/min/1.73 sqM); Potassium 4.5 mmol/L (3.5-5.1); Sodium 133 mmol/L (137-145); Total Protein 4.5 g/dL (6.3-8.2)
[2024-12-26 07:34] LABS: Calcium 6.0 mg/dL (8.4-10.2)
--- NOTE | 2024-12-26 07:34 | P.PN ---
Subjective This is a pleasant 44 years old male with past medical history of alcohol use disorder presents because of cardiac arrest at happened briefly at home after he was been vomiting it twice. He lost his pulse and he required CPR, Patient was found to have cardiac arrest secondary to V. tach secondary to electrolyte imbalance from his history of severe alcohol use disorder and severe electrolyte imbalance including hypokalemia hypocalcemia and hypomagnesemia. Currently awake alert looks comfortable lying in bed, mildly fatigued. Complaining from epigastric pain and tenderness but this is looks chronic related to his chronic pancreatitis. There was concerns of aspiration pneumonia and patient was started on Zosyn however his breathing is okay and he is on room air. No much of abdominal pain or tenderness related to his colitis no vomiting and he tolerates diet well. Yesterday had 1 very loose bowel movement. No tremor or significant withdrawal symptoms. He complains from chest wall tenderness from compression during CPR Hemodynamically stable Labs reviewed today WBC 11, hemoglobin 9, potassium 4.4 was 2.9 earlier, sodium 131 and calcium low 5.8 He is on Zosyn normal saline 75 mL/h amiodarone and metoprolol Review of systems CONSTITUTIONAL: No fever, no malaise, no fatigue. HEENT: No recent visual problems or hearing problems. Denied any sore throat. CARDIOVASCULAR: No orthopnea, PND, no palpitations, no syncope. PULMONARY: No shortness of breath, no cough, no hemoptysis. HEMATOLOGICAL: Denies any bleeding or petechiae. GENITOURINARY: Denies any burning micturition, frequency, or urgency. MUSCULOSKELETAL/RHEUMATOLOGICAL: Denies any joint pain, swelling, or any muscle pain. ENDOCRINE: Denies any polyuria or polydipsia. Active Medications Generic Name Dose Route Start Last Admin Trade Name Freq PRN Reason Stop Dose Admin Hydrocodone Bitart/Acetaminophen 1 each 12/24/24 14:42 12/25/24 20:16 Hydrocodone/Apap 5-325mg 1 Each Tab PO 1 each Q6HR PRN Administration Pain Amiodarone HCl 200 mg 12/25/24 09:00 12/25/24 08:46 Amiodarone 200 Mg Tab PO 200 mg DAILY VLAD Administration Lipase/Protease/Amylase 5 each 12/24/24 12:30 12/25/24 17:50 Lipase 20,000/Protease 63,000/Amylase 84,000 PO 5 each TID-W/MEALS VLAD Administration Heparin Sodium (Porcine) 5,000 unit 12/24/24 16:00 12/26/24 00:26 Heparin Sodium,Porcine 5,000 Unit/Ml 1 Ml Vial SQ 5,000 unit Q8HR VLAD Administration Sodium Chloride 1,000 mls @ 75 mls/hr 12/24/24 14:45 12/25/24 20:03 Saline 0.9% IV Not Given .[id number] VLAD Piperacillin Sod/Tazobactam 100 mls @ 25 mls/hr 12/24/24 16:15 12/26/24 00:25 Sod 3.375 gm/ Sodium Chloride IVPB 25 mls/hr Q8HR VLAD Administration Protocol Norepinephrine Bitartrate 8 mg 258 mls @ 2.995 mls/hr 12/25/24 05:30 12/25/24 08:15 / Sodium Chloride IV 0 mcg/kg/min .Q24H VLAD 0 mls/hr Titration Protocol 0.03 MCG/KG/MIN Lactulose 20 gm 12/24/24 21:00 12/25/24 20:05 Lactulose 20 Gm/30 Ml Cup PO Not Given BID VLAD Lorazepam 1 mg 12/24/24 07:15 12/26/24 02:29 Lorazepam 1 Mg/0.5 Ml Vial IV 1 mg Q1HR PRN Administration CIWA 10 to 15 Lorazepam 1 mg 12/24/24 07:15 12/25/24 22:26 Lorazepam 1 Mg/0.5 Ml Vial IV 1 mg Q2HR PRN Administration CIWA 8 or 9 Metoprolol Tartrate 25 mg 12/24/24 09:00 12/25/24 20:17 Metoprolol Tartrate 25 Mg Tab PO 25 mg BID VLAD Administration Miscellaneous Information 1 each 12/24/24 22:06 Magnesium Replacement Protocol 1 Each Misc MISCELLANE DAILY PRN Per Protocol Protocol Miscellaneous Information 1 each 12/24/24 22:07 Potassium Replacement Protocol 1 Each Misc MISCELLANE DAILY PRN Per Protocol Protocol Miscellaneous Information 1 each 12/25/24 07:04 Potassium Replacement Protocol 1 Each Misc MISCELLANE DAILY PRN Per Protocol Protocol Naloxone HCl 0.2 mg 12/24/24 10:56 Naloxone 0.4 Mg/Ml 1 Ml Vial IV Q2M PRN Opioid Reversal Nicotine 1 patch 12/25/24 12:00 12/25/24 12:01 Nicotine 21mg/24hr Patch TRANSDERM 1 patch DAILY VLAD Administration Pantoprazole Sodium 40 mg 12/25/24 09:00 12/25/24 08:46 Pantoprazole 40 Mg Tablet PO 40 mg DAILY VLAD Administration Pregabalin 200 mg 12/24/24 16:00 12/25/24 20:16 Pregabalin 100 Mg Cap PO 200 mg TID VLAD Administration Simethicone 80 mg 12/25/24 18:30 12/25/24 22:19 Simethicone 80 Mg Chewable PO 80 mg QID VLAD Administration Objective - Vital Signs Vital signs: Vital Signs Temp 98.0 F 12/26/24 04:00 Pulse 101 H 12/26/24 07:00 Resp 18 12/26/24 07:00 BP 103/88 12/26/24 07:00 Pulse Ox 90 L 12/26/24 07:00 FiO2 Intake & Output 12/25/24 12/26/24 12/26/24 18:59 06:59 18:59 Intake Total 1376.840 900 75 Output Total 180 500 0 Balance 1196.840 400 75 Weight 51.6 kg 51.6 kg Intake: IV 675 900 75 Sodium Chloride 0.9% 1, 675 900 75 000 ml @ 75 mls/hr IV . [id number] VLAD Rx#:[id number] Intake, IV Titration 81.840 Amount Norepinephrine 8 mg In 6.840 Sodium Chloride 0.9% 250 ml @ 0.03 MCG/KG/MIN 2. 995 mls/hr IV .Q24H VLAD Rx#:[id number] Sodium Chloride 0.9% 1, 75 000 ml @ 75 mls/hr IV . [id number] VLAD Rx#:[id number] Oral 620 Output: Urine 180 500 0 Other: # Voids 0 1 - Exam GENERAL: The patient is alert and oriented x3, not in any acute distress. Well developed, well nourished. HEENT: Pupils are round and equally reacting to light. EOMI. No scleral icterus. No conjunctival pallor. Normocephalic, atraumatic. No pharyngeal erythema. No thyromegaly. CARDIOVASCULAR: S1 and S2 present. No murmurs, rubs, or gallops. PULMONARY: Chest is clear to auscultation, no wheezing , no crackles. -ABDOMEN: Soft, epigastric tenderness, no rebound tenderness nondistended, nor moactive bowel sounds. No palpable organomegaly. MUSCULOSKELETAL: No joint swelling or deformity. EXTREMITIES: No cyanosis, clubbing, or pedal edema. NEUROLOGICAL: Gross neurological examination did not reveal any focal deficits. SKIN: No rashes. no petechiae. - Labs CBC & Chem 7: 12/26/24 06:01 12/25/24 15:57 Labs: Abnormal Lab Results - Last 24 Hours (Table) 12/25/24 12/26/24 Range/Units 07:12 06:01 WBC 11.03 H (4.50-10.00) 10*3/uL RBC 3.12 L (4.40-5.60) 10*6/uL Hgb 9.1 L (13.0-17.0) g/dL Hct 28.0 L (39.6-50.0) % Immature Gran # 0.07 H (0.00-0.04) 10*3/uL Monocytes # 1.19 H (0.20-1.00) 10*3/uL Ionized Calcium Cisco 3.6 L (4.5-5.3) mg/dL Microbiology - Last 24 Hours (Table) 12/24/24 13:00 Urine Culture - Final Urine,Clean Catch 12/24/24 08:18 Blood Culture - Preliminary Blood Assessment and Plan Assessment: Cardiac arrest secondary to V. 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 Plan to repeat echocardiogram on Sunday to be followed possible for cardiac cath Pulmonary/critical care team consult GI team consult Labs and medication were reviewed.. Continue same treatment. Continue with symptomatic treatment. Resume home medication. Monitor labs and vitals. DVT and GI prophylaxis. Further recommendations as per clinical course of the patient DVT prophylaxis: Subcutaneous heparin GI Prophylaxis: Pe Protonix PT/OT: Pending Prognosis is guarded
--- NOTE | 2024-12-26 10:48 | P.PN ---
Subjective Progress Note Date: 12/26/24 Principal diagnosis: Colitis, pancreatitis This is a pleasant 44-year-old male who was brought in to the emergency department by EMS this morning secondary to patient with altered mental status changes, seizure-like activity and dizziness. 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 Patient states he remembers feeling dizzy and asked his roommate to call EMS. He does not remember much after that. Apparently when EMS arrived patient had some seizure-like activities and went unresponsive. He was hooked up to the monitor and found to be in ventricular tachycardia, CPR was started and administered 1 shock and patient rate resumed consciousness. Patient reports that he has been having nausea and vomiting for last couple days duration states his sugar was low. He has also been having diarrhea for the last 2 weeks up to 5/day. He has followed with gastroen terology for history of alcohol pancreatitis and large pseudocyst which he was following at [facility] and has had the cyst drained with stents. 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 States he last took his Eliquis yesterday. He denies any blood in his stool. States he is not drinking as much anymore and just drinks socially. Patient had significant altered laboratory work on admission. States he has some epigastric pain. He has had significant weight loss since his initial diagnosis of pancreatitis in pancreatic pseudocyst which she was diagnosed about 2 years ago. States he has had decreased appetite and not eating much. Patient denies any known history of alcohol liver disease. WBC 13.8 hemoglobin 10.7 platelet count 356,000 INR 1.9 sodium 135 potassium 2.3 BUN 5 creatinine 0.3 glucose 339 calcium 4.1 magnesium 0.5 total bilirubin 0.7 AST 223 ALT 55 alkaline phosphatase 209 ammonia 64 on admission repeat 39 troponin 0.377 lipase 81. Serum alcohol less than 10. 12/25/2024 Patient seen and examined today as a follow-up. He is in the ICU. He was on pressors overnight which have been discontinued. Currently on Zosyn. States he is feeling much better. Denies any abdominal pain states just feels more muscular. Denies any nausea or vomiting and no diarrhea. He has been afebrile. Today's labs WBC 12.2 hemoglobin 9.5 platelet count 323,000 sodium 131 potassium 2.9 BUN 2 creatinine 0.2 calcium 5.8 total bilirubin 0.9 AST 109 ALT 40 alkaline phosphatase 201 ammonia 16 12/26/2024 Patient seen and examined today as a follow-up. He remains in the ICU. States he is having some abdominal discomfort mostly muscular. Denies any nausea or vomiting and no diarrhea. Patient's ammonia has been normal for second day in a row at 10 without any lactulose. He has been afebrile. Go cytosis improving. Electrolytes improving. Total bilirubin 1.2 AST 148 ALT 57 alkaline phosphatase 233 ammonia 10 Objective - Vital Signs Vital signs: Vital Signs Temp 98.0 F 12/26/24 04:00 Pulse 101 H 12/26/24 07:00 Resp 18 12/26/24 07:00 BP 103/88 12/26/24 07:00 Pulse Ox 90 L 12/26/24 07:00 FiO2 Intake & Output 12/25/24 12/26/24 12/26/24 18:59 06:59 18:59 Intake Total 1376.840 900 75 Output Total 180 500 0 Balance 1196.840 400 75 Weight 51.6 kg 51.6 kg Intake: IV 675 900 75 Sodium Chloride 0.9% 1, 675 900 75 000 ml @ 75 mls/hr IV . [id number] VLAD Rx#:[id number] Intake, IV Titration 81.840 Amount Norepinephrine 8 mg In 6.840 Sodium Chloride 0.9% 250 ml @ 0.03 MCG/KG/MIN 2. 995 mls/hr IV .Q24H VLAD Rx#:[id number] Sodium Chloride 0.9% 1, 75 000 ml @ 75 mls/hr IV . [id number] VLAD Rx#:[id number] Oral 620 Output: Urine 180 500 0 Other: # Voids 0 1 - Exam General appearance: The patient is alert, oriented, appears in no acute distress. HET: Head is normocephalic and atraumatic. Conjunctiva pink. Sclera anicteric. Neck: Supple without lymphadenopathy. Abdomen: Soft, nontender, nondistended. Extremities: Normal skin color and turgor. No pedal edema Skin: No rashes, no jaundice Neurological: No focal deficits. Alert and oriented. - Labs CBC & Chem 7: 12/26/24 06:01 12/26/24 06:01 Labs: Abnormal Lab Results - Last 24 Hours (Table) 12/25/24 12/26/24 12/26/24 Range/Units 07:12 06:01 06:01 WBC 11.03 H (4.50-10.00) 10*3/uL RBC 3.12 L (4.40-5.60) 10*6/uL Hgb 9.1 L (13.0-17.0) g/dL Hct 28.0 L (39.6-50.0) % Immature Gran # 0.07 H (0.00-0.04) 10*3/uL Monocytes # 1.19 H (0.20-1.00) 10*3/uL Sodium 133 L (137-145) mmol/L Carbon Dioxide 19 L (22-30) mmol/L BUN <2 L (9-20) mg/dL Creatinine 0.26 L (0.66-1.25) mg/dL Glucose 129 H (74-99) mg/dL Calcium 6.0 L* (8.4-10.2) mg/dL Ionized Calcium Cisco 3.6 L (4.5-5.3) mg/dL AST 140 H (17-59) U/L ALT 57 H (4-49) U/L Alkaline Phosphatase 233 H (38-126) U/L Total Protein 4.5 L (6.3-8.2) g/dL Albumin 1.9 L (3.5-5.0) g/dL Microbiology - Last 24 Hours (Table) 12/24/24 13:00 Urine Culture - Final Urine,Clean Catch 12/24/24 08:18 Blood Culture - Preliminary Blood Assessment and Plan (1) Diarrhea Narrative/Plan: 44-year-old presenting with altered mental status changes, cardiac arrest complaining of epigastric pain and diarrhea. Electrolyte imbalances. Stated 2 weeks of nonbloody diarrhea with CT evidence of diffuse wall thickening within the sigmoid colon and within the ascending colon correlate for possible colitis. Unclear etiology of diarrhea, possibly infectious. Will obtain stool cultures. Unclear etiology of diarrhea, possible gastroenteritis. Stool cultures pending. According to patient he states that he gets bouts of nausea vomiting and diarrhea. He is not sure if it is related to his drinking. No further diarrhea at this time. And nausea and vomiting have resolved as well. Discussed with patient recommend complete alcohol abstinence. Follow-up with gastroenterology in a couple weeks. Can further discuss recurrent episodes of diarrhea. Current Visit: Yes Status: Acute Code(s): R19.7 - DIARRHEA, UNSPECIFIED SNOMED Code(s): 52338159 (2) Elevated liver enzymes Narrative/Plan: Patient with elevated liver enzymes, with known history of alcoholism and alcohol pancreatitis with splenic vein thrombosis. 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 Liver enzymes stable. Current Visit: Yes Status: Acute Code(s): R74.8 - ABNORMAL LEVELS OF OTHER SERUM ENZYMES SNOMED Code(s): 838267167 (3) Chronic pancreatitis Current Visit: Yes Status: Acute Code(s): K86.1 - OTHER CHRONIC PANCREATITIS SNOMED Code(s): 858931940 (4) Hypokalemia Current Visit: Yes Status: Acute Code(s): E87.6 - HYPOKALEMIA SNOMED Code(s): 97351540 (5) Alcoholism Narrative/Plan: Although patient initially stated that he was not drinking today he is admitting that he has been drinking and that he plans on quitting altogether. Current Visit: No Status: Acute Code(s): F10.20 - ALCOHOL DEPENDENCE, UNCOMPLICATED SNOMED Code(s): 5238857 (6) Hypocalcemia Current Visit: No Status: Acute Code(s): E83.51 - HYPOCALCEMIA SNOMED Code(s): 1855910 (7) Hypomagnesemia Current Visit: Yes Status: Acute Code(s): E83.42 - HYPOMAGNESEMIA SNOMED Code(s): 606173887 (8) Splenic vein thrombosis Current Visit: No Status: Acute Code(s): I82.890 - ACUTE EMBOLISM AND THROMBOSIS OF OTHER SPECIFIED VEINS SNOMED Code(s): 64309922 (9) Hyperammonemia Narrative/Plan: Resolved will discontinue lactulose. Current Visit: Yes Status: Acute Code(s): E72.20 - DISORDER OF UREA CYCLE METABOLISM, UNSPECIFIED SNOMED Code(s): 5131500 (10) Cardiac arrest Narrative/Plan: Cardiac arrest, V. tach Current Visit: Yes Status: Acute Code(s): I46.9 - CARDIAC ARREST, CAUSE UNSPECIFIED SNOMED Code(s): 663789081 Plan: 1. Continue symptomatic and supportive care 2. Diet as tolerated 3. Replace electrolytes per protocol 4. Antiemetics as needed 5. Stool culture ordered. Patient has not had a bowel movement so it has not been collected 6. Lactulose discontinued. 7. Protonix 40 mg daily for GI prophylaxis 8. Continue with cardiology workup and recommendations 9. No plans for endoscopy 10. Recommend complete alcohol abstinence 11. Rest of medical management per primary medical team Thank you for this consultation, outpatient follow-up as needed. We will sign off at this time. Dr. Rupert Rosario I agree with the dictator's note, documented as a scribe by Flora Quintana.
--- NOTE | 2024-12-26 14:49 | P.PN ---
Subjective Progress Note Date: 12/26/24 Principal diagnosis: Ventricular tachycardia cardiac arrest This is a 44-year-old white male brought into the emergency room earlier this morning by EMS with altered mental status and seizure-like activity. Apparently the patient is known to have past medical history of alcohol use, chronic pancreatitis, pancreatic pseudocyst, history of hypertension, previous history of TIA, patient had a sudden feeling of dizziness, and asked his roommate to call EMS. Apparently upon arrival of EMS he was found to have seizure-like activity and went unresponsive on the monitor the patient was noted to have ventricular tachycardia, CPR was started and the patient received 1 shock. P zaire became conscious again, and his rhythm came back with return of circulation. Apparently for the last few days the patient has been experiencing episodes of nausea and vomiting and episodes of low blood sugar. In addition, patient has been complaining of episodes of diarrhea for the last 2 weeks. Patient normally follows up at [facility] for his pancreatitis and pseudocyst. 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 And has been taking Eliquis until yesterday. Patient drinks occasionally at this point, used to be a heavy drinker in the past. I evaluated the patient in the ER, and considering his cardiac arrest history, I recommended admitting the patient to the ICU, and he is to be seen by other consultants including cardiology. During my evaluation the patient was not in any distress, he was hemodynamically stable, all his labs were reviewed. Patient was seen today on 12/25/2024, remains in the ICU mostly because of his profound electrolyte abnormalities including hypocalcemia, hypomagnesium , hypokalemia, these are all being addressed accordingly mostly related to his GI symptoms and his pancreatitis. As well as diarrhea and nausea and vomiting. Patient is not in any distress, he is on 2 L nasal cannula, has been receiving potassium almost every 2 hours 20 mEq orally remains empirically on Zosyn, continues to have some vague abdominal pain and discomfort. WBC count today is 12.2 hemoglobin 9.5 electrolytes showed low sodium of 131 low potassium 2.9 but few hours later it was up to 3.8 renal functioning is normal calcium is up to 5.8 today. Add magnesium is up to 2.1, these are all being addressed daily. Cardiac sheppard the patient is in sinus rhythm, no further episodes of tachyarrhythmia. Seen today on 12/26/2024, patient remains in the ICU, feeling better, he has no active pulmonary symptoms no GI symptoms and no cardiac symptoms. Labs have shown significant improvement his potassium today is 4.5 calcium is up to 6 however his albumin is 1.9 which makes his corrected calcium 7.68., Improved, but not up to 8.4 or higher. Hence would recommend more calcium gluconate to be given for this patient. Magnesium not done today however was 2.1 yesterday. Objective - Vital Signs Vital signs: Vital Signs Temp 97.7 F 12/26/24 08:00 Pulse 103 H 12/26/24 08:00 Resp 23 12/26/24 08:00 BP 107/78 12/26/24 08:00 Pulse Ox 99 12/26/24 08:00 FiO2 Intake & Output 12/25/24 12/26/24 12/26/24 18:59 06:59 18:59 Intake Total 1376.840 900 150 Output Total 180 500 0 Balance 1196.840 400 150 Weight 51.6 kg 51.6 kg Intake: IV 675 900 150 Sodium Chloride 0.9% 1, 675 900 150 000 ml @ 75 mls/hr IV . [id number] VLAD Rx#:[id number] Intake, IV Titration 81.840 Amount Norepinephrine 8 mg In 6.840 Sodium Chloride 0.9% 250 ml @ 0.03 MCG/KG/MIN 2. 995 mls/hr IV .Q24H VLAD Rx#:[id number] Sodium Chloride 0.9% 1, 75 000 ml @ 75 mls/hr IV . [id number] VLAD Rx#:[id number] Oral 620 Output: Urine 180 500 0 Other: Voiding Method Toilet Urinal Incontinent # Voids 0 1 1 - Exam General appearance: Revealed a 44-year-old white male looks frail, chronically ill, not in any distress Head: Atraumatic, normocephalic EENT: PERRLA, EOMI, nonicteric no neck masses no JVD no stridor Neck: Supple no neck masses no JVD Heart: Normal S1-S2, no S3 gallop, no murmur Lungs: Good breath sound bilaterally no crackles rhonchi or wheezes Abdomen: Flat soft nontender no rebound no guarding positive bowel sounds Skin: No rashes, no cyanosis Extremities: No clubbing edema or cyanosis Neurological: Alert oriented x 3 no gross focal neurologic deficit Psychiatric: Normal mood and affect and no mental status examination - Labs CBC & Chem 7: 12/26/24 06:01 12/26/24 06:01 Labs: Abnormal Lab Results - Last 24 Hours (Table) 12/25/24 12/26/24 12/26/24 Range/Units 15:57 06:01 06:01 WBC 11.03 H (4.50-10.00) 10*3/uL RBC 3.12 L (4.40-5.60) 10*6/uL Hgb 9.1 L (13.0-17.0) g/dL Hct 28.0 L (39.6-50.0) % Immature Gran # 0.07 H (0.00-0.04) 10*3/uL Monocytes # 1.19 H (0.20-1.00) 10*3/uL Sodium 133 L (137-145) mmol/L Carbon Dioxide 19 L (22-30) mmol/L BUN <2 L (9-20) mg/dL Creatinine 0.26 L (0.66-1.25) mg/dL Glucose 129 H (74-99) mg/dL Calcium 6.0 L* (8.4-10.2) mg/dL AST 140 H (17-59) U/L ALT 57 H (4-49) U/L Alkaline Phosphatase 233 H (38-126) U/L Total Protein 4.5 L (6.3-8.2) g/dL Albumin 1.9 L (3.5-5.0) g/dL Vit D 1,25-Dihydroxy 84.3 H (19.9-79.3) pg/mL Microbiology - Last 24 Hours (Table) 12/24/24 13:00 Urine Culture - Final Urine,Clean Catch 12/24/24 08:18 Blood Culture - Preliminary Blood Assessment and Plan Assessment: Impression: Ventricular tachycardia arrest most likely secondary to electrolytes imbalance with hypokalemia, hypomagnesemia and hypocalcemia Chronic pancreatitis Chronic GI symptoms Elevated ammonia level History of alcohol abuse History of splenic vein thrombosis, maintained on Eliquis History of syncope Chronic diarrhea with multiple electrolyte abnormalities Recommendation: Transfer patient to cardiac floor/3 S. Continue present supportive care measures Continue GI DVT prophylaxis Continue to monitor electrolytes, calcium magnesium potassium and address accordingly. C Will continue to follow Time with Patient: Less than 30
[2024-12-26] MEDS ORDERED: SIMETHICONE 80 MG CHEWABLE PO PRN (15:07)
[2024-12-26] MEDS: CALCIUM GLUCONATE IN NACL 2 GM in SALINE 1 100ML.BAG IVPB ONE (15:16)
[2024-12-26] MEDS: KETOROLAC 15 MG/ML 1 ML VIAL IVP PRN (20:16)
--- NOTE | 2024-12-27 11:03 | P.PN ---
Subjective HISTORY OF PRESENT ILLNESS: This is a 44-year-old male with a past medical history significant for syncope, pancreatitis, splenic vein thrombosis, and alcohol abuse. 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 We have been asked to see the patient in consultation for cardiac arrest. Apparently the patient was having altered mental status at home and EMS was called. Patient was found to be in ventricular tachycardia and CPR was started. 1 shock was delivered. The patient then had ROSC. Apparently no medications were given. The patient is seen and examined at the bedside in the emergency room. Patient is awake and alert. He currently denies any chest pain or pressure. Denies any shortness of breath. Patient does not remember any of the episodes that happened this morning. He just remembers waking up in the ambulance. He states he has not had any alcohol to drink in 2 to 3 days. He does state he has a history of alcohol abuse and drinks twisted teas. DIAGNOSTICS: - EKG reveals sinus tachycardia with no signs of acute ischemia. - Chest xray negative for acute process. - Laboratory data: WBC 13.81. Hemoglobin 10.7. Platelet count 356. Sodium 135. Potassium 2.3. BUN 5. Creatinine 0.31. Calcium 4.1. Magnesium 0.5. AST 223. ALT 55. Troponin 0.022. proBNP 329. - Current home cardiac medication list is not updated at the time of this dictation - No previous echocardiogram, stress test, or cardiac catheterization available in EMR for review 12/27/2024 Patient examined this morning at the bedside. Patient currently denies any chest pain or pressure. He denies shortness of breath. Vital signs are stable. Echocardiogram completed revealing ejection fraction 20 to 25%, anterior apical, apical lateral and apical akinesis, possible Takotsubo, mild aortic and mitral regurgitation, mild tricuspid regurgitation PHYSICAL EXAM: VITAL SIGNS: Reviewed. GENERAL: Well-developed in no acute distress. HEENT: Head is normocephalic. Pupils are equal, round. Sclerae anicteric. Mucous membranes of the mouth are moist. Neck supple. No JVD or thyromegaly LUNGS: Respirations even and unlabored. Lungs essentially clear to auscultation bilaterally. HEART: Regular rate and rhythm. S1 and S2 heard. ABDOMEN: Soft. Nondistended. Nontender. EXTREMITIES: Normal range of motion. No clubbing or cyanosis. Peripheral pulses intact. No lower extremity edema NEUROLOGIC: Awake and alert. Oriented x 3. ASSESSMENT: V tach cardiac arrest Cardiomyopathy, EF 20 to 25%, ischemic versus nonischemic, possible Takotsubo Hypokalemia Hypomagnesemia Hypocalcemia Transaminitis Elevated ammonia level Coagulopathy, secondary to liver disease, INR 1.9 History of alcohol abuse History of pancreatitis History of splenic vein thrombosis, previously on Eliquis History of syncope PLAN: Repeat limited echo to assess LV function Continue current cardiac medications Possible cardiac catheterization to be performed on Sunday with Dr. Oneil Further recommendations pending patient course Nurse practitioner note has been reviewed by physician. Signing provider agrees with the documented findings, assessment, and plan of care documented by MEMBER CERTIFICATION MANAGER as a scribe. Objective - Vital Signs Vital signs: Vital Signs Temp 98.1 F 12/27/24 08:00 Pulse 108 H 12/27/24 08:00 Resp 16 12/27/24 08:00 BP 103/71 12/27/24 08:00 Pulse Ox 98 12/27/24 08:00 FiO2 Intake & Output 12/26/24 12/27/24 12/27/24 18:59 06:59 18:59 Intake Total 910 240 Output Total 1000 1000 Balance -90 -1000 240 Weight 49.3 kg Intake: IV 700 Piperacillin-Tazobactam 3 100 .375 gm In Sodium Chloride 0.9% 100 ml @ 25 mls/hr IVPB Q8HR [facility] Rx# :[id number] Sodium Chloride 0.9% 1, 600 000 ml @ 75 mls/hr IV . [id number] [facility] Rx#:[id number] Oral 210 240 Output: Urine 1000 1000 Other: Voiding Method Toilet Toilet Urinal Urinal Incontinent Incontinent # Voids 1 1 # Bowel Movements 1 - Labs CBC & Chem 7: 12/26/24 06:01 12/26/24 06:01 Labs: Abnormal Lab Results - Last 24 Hours (Table) 12/25/24 Range/Units 15:57 Vit D 1,25-Dihydroxy 84.3 H (19.9-79.3) pg/mL Microbiology - Last 24 Hours (Table) 12/24/24 08:18 Blood Culture - Preliminary Blood
[2024-12-27 11:17] LABS: Basophils # (A) 0.03 10*3/uL (0.00-0.10); Basophils % (A) 0.2 %; Eosinophils # (A) 0.08 10*3/uL (0.04-0.35); Eosinophils % (A) 0.5 %; HCT 26.0 % (39.6-50.0); HGB 8.8 g/dL (13.0-17.0); Lymphocytes # (A) 2.26 10*3/uL (0.90-5.00); Lymphocytes % (A) 14.2 %; MCH 29.9 pg (27.0-32.0); MCHC 33.8 g/dL (32.0-37.0); MCV 88.4 fL (80.0-97.0); Monocytes # (A) 1.12 10*3/uL (0.20-1.00); Monocytes % (A) 7.0 %; Neutrophils # (A) 12.34 10*3/uL (1.80-7.70); Neutrophils % (A) 77.5 %; Platelet Count 396 10*3/uL (140-440); RBC 2.94 10*6/uL (4.40-5.60); RDW 16.3 % (11.5-14.5); WBC 15.92 10*3/uL (4.50-10.00)
--- NOTE | 2024-12-27 11:29 | P.PN ---
Subjective This is a pleasant 44 years old male with past medical history of alcohol use disorder presents because of cardiac arrest at happened briefly at home after he was been vomiting it twice. He lost his pulse and he required CPR, Patient was found to have cardiac arrest secondary to V. tach secondary to electrolyte imbalance from his history of severe alcohol use disorder and severe electrolyte imbalance including hypokalemia hypocalcemia and hypomagnesemia. Currently awake alert looks comfortable lying in bed, mildly fatigued. Complaining from epigastric pain and tenderness but this is looks chronic related to his chronic pancreatitis. There was concerns of aspiration pneumonia and patient was started on Zosyn however his breathing is okay and he is on room air. No much of abdominal pain or tenderness related to his colitis no vomiting and he tolerates diet well. Yesterday had 1 very loose bowel movement. No tremor or significant withdrawal symptoms. He complains from chest wall tenderness from compression during CPR Hemodynamically stable Labs reviewed today WBC 11, hemoglobin 9, potassium 4.4 was 2.9 earlier, sodium 131 and calcium low 5.8 He is on Zosyn normal saline 75 mL/h amiodarone and metoprolol 12/27 Patient moved of the ICU to the general medical floor at [facility] unit Awake alert. Still complains from soreness in his chest wall from CPR and some abdominal discomfort but no abdominal pain. He tolerated diet well. He states he has 2 loose bowel movement yesterday and no bowel movement today. Electrolytes still pending Hemoglobin stable at 8.8 WBC 15,000 Remains on Zosyn and normal saline at 75 mL/h Objective - Vital Signs Vital signs: Vital Signs Temp 98.1 F 12/27/24 08:00 Pulse 108 H 12/27/24 08:00 Resp 16 12/27/24 08:00 BP 103/71 12/27/24 08:00 Pulse Ox 98 12/27/24 08:00 FiO2 Intake & Output 12/26/24 12/27/24 12/27/24 18:59 06:59 18:59 Intake Total 910 240 Output Total 1000 1000 Balance -90 -1000 240 Weight 49.3 kg Intake: IV 700 Piperacillin-Tazobactam 3 100 .375 gm In Sodium Chloride 0.9% 100 ml @ 25 mls/hr IVPB Q[facility]HR [facility] Rx# :[id number] Sodium Chloride 0.9% 1, 600 000 ml @ 75 mls/hr IV . [id number] [facility] Rx#:[id number] Oral 210 240 Output: Urine 1000 1000 Other: Voiding Method Toilet Urinal Incontinent # Voids 1 1 # Bowel Movements 1 - Exam GENERAL: The patient is alert and oriented x3, not in any acute distress. Well developed, well nourished. HEENT: Pupils are round and equally reacting to light. EOMI. No scleral icterus. No conjunctival pallor. Normocephalic, atraumatic. No pharyngeal erythema. No thyromegaly. CARDIOVASCULAR: S1 and S2 present. No murmurs, rubs, or gallops. PULMONARY: Chest is clear to auscultation, no wheezing , no crackles. -ABDOMEN: Soft, epigastric tenderness, no rebound tenderness nondistended, normoactive bowel sounds. No palpable organomegaly. MUSCULOSKELETAL: No joint swelling or deformity. EXTREMITIES: No cyanosis, clubbing, or pedal edema. NEUROLOGICAL: Gross neurological examination did not reveal any focal deficits. SKIN: No rashes. no petechiae. - Labs CBC & Chem 7: 12/27/24 10:59 12/26/24 06:01 Labs: Abnormal Lab Results - Last 24 Hours (Table) 12/25/24 Range/Units 15:57 Vit D 1,25-Dihydroxy 84.3 H (19.9-79.3) pg/mL Microbiology - Last 24 Hours (Table) 12/24/24 08:18 Blood Culture - Preliminary Blood Assessment and Plan Assessment: Cardiac arrest secondary to V. 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 Plan to repeat echocardiogram on Sunday to be followed possible for cardiac cath Pulmonary/critical care team consult GI team consult Labs and medication were reviewed.. Continue same treatment. Continue with symptomatic treatment. Resume home medication. Monitor labs and vitals. DVT and GI prophylaxis. Further recommendations as per clinical course of the patient DVT prophylaxis: Subcutaneous heparin GI Prophylaxis: Pe Protonix PT/OT: Pending Prognosis is guarded
[2024-12-27 11:37] LABS: ALT 56 U/L (4-49); AST 139 U/L (17-59); African American GFR (CKD) >90 (>60 ml/min/1.73 sqM); Albumin 1.9 g/dL (3.5-5.0); Alkaline Phosphatase 280 U/L (38-126); Anion Gap 7 mmol/L; Blood Urea Nitrogen 2 mg/dL (9-20); Calcium 6.8 mg/dL (8.4-10.2); Carbon Dioxide 21 mmol/L (22-30); Chloride 106 mmol/L (98-107); Glucose 116 mg/dL (74-99); Non-African American GFR(CKD) >90 (>60 ml/min/1.73 sqM); Potassium 3.8 mmol/L (3.5-5.1); Sodium 134 mmol/L (137-145); Total Protein 4.5 g/dL (6.3-8.2)
--- NOTE | 2024-12-27 13:08 | CA ---
Transthoracic Echo Report Name: Juaquin Posada Age: 44 Gender: M : 1980 Exam Date: 12/27/2024 12:12 Exam Location: [facility] Ht (in): 66 Wt (lb): 108 Ordering Physician: Nasra Todd Attending/Referring Phys: [id number], Perez Lens Cutter Brunilda Malik, RDCS Procedure CPT: Indications: evaluate left ventricular function, cardiac arrest Cardiac Hx: Limited for LVF Technical Quality: Good Contrast 1: Definity Total Dose (mL): 2 Contrast 2: Total Dose (mL): MEASUREMENTS (Male / Female) Normal Values 2D ECHO LV Diastolic Diameter PLAX 5.0 cm 4.2 - 5.9 / 3.9 - 5.3 cm LV Systolic Diameter PLAX 4.0 cm IVS Diastolic Thickness 0.9 cm 0.6 - 1.0 / 0.6 - 0.9 cm LVPW Diastolic Thickness 0.9 cm 0.6 - 1.0 / 0.6 - 0.9 cm LV Relative Wall Thickness 0.3 RV Internal Dim ED PLAX 2.7 cm LA Systolic Diameter LX 3.2 cm 3.0 - 4.0 / 2.7 - 3.8 cm LV Diastolic Volume MOD BP 133.4 cm??? 67 - 155 / 56 - 104 cm??? LV Systolic Volume MOD BP 87.3 cm??? 22 - 58 / 19 - 49 cm??? LV Ejection Fraction MOD BP 34.6 % >= 55 % LV Cardiac Index MOD BP 3324.7 cm???/min???m??? LV Diastolic Volume MOD 4C 132.8 cm??? LV Systolic Volume MOD 4C 93.1 cm??? LV Ejection Fraction MOD 4C 29.9 % LV Cardiac Index MOD 4C 2858.6 cm???/min???m??? LV Diastolic Length 4C 8.5 cm LV Systolic Length 4C 8.3 cm LV Diastolic Volume MOD 2C 131.6 cm??? LV Systolic Volume MOD 2C 81.2 cm??? LV Ejection Fraction MOD 2C 38.3 % LV Cardiac Index MOD 2C 3629.9 cm???/min???m??? LV Diastolic Length 2C 8.7 cm LV Systolic Length 2C 8.5 cm DOPPLER TR Peak Velocity 214.9 cm/s TR Peak Gradient 18.5 mmHg FINDINGS Left Ventricle Left ventricular ejection fraction is estimated at 30-35 %. [place] akinetic. Severely increased left ventricular systolic volume. Moderately decreased left ventricular ejection fraction. Right Ventricle Right Atrium Left Atrium Mitral Valve Aortic Valve Tricuspid Valve Pulmonic Valve Pericardium Aorta CONCLUSIONS Severe LV systolic dysfunction with extensive hypokinesis of the apex Previewed by: Dr. Terence Rosario MD (Electronically Signed) Final Date: 27 December 2024 13:07
--- NOTE | 2024-12-27 13:32 | P.PN ---
Subjective Progress Note Date: 12/27/24 Principal diagnosis: Ventricular tachycardia cardiac arrest This is a 44-year-old white male brought into the emergency room earlier this morning by EMS with altered mental status and seizure-like activity. Apparently the patient is known to have past medical history of alcohol use, chronic pancreatitis, pancreatic pseudocyst, history of hypertension, previous history of TIA, patient had a sudden feeling of dizziness, and asked his roommate to call EMS. Apparently upon arrival of EMS he was found to have seizure-like activity and went unresponsive on the monitor the patient was noted to have ventricular tachycardia, CPR was started and the patient received 1 shock. P zaire became conscious again, and his rhythm came back with return of circulation. Apparently for the last few days the patient has been experiencing episodes of nausea and vomiting and episodes of low blood sugar. In addition, patient has been complaining of episodes of diarrhea for the last 2 weeks. Patient normally follows up at [facility] for his pancreatitis and pseudocyst. 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 And has been taking Eliquis until yesterday. Patient drinks occasionally at this point, used to be a heavy drinker in the past. I evaluated the patient in the ER, and considering his cardiac arrest history, I recommended admitting the patient to the ICU, and he is to be seen by other consultants including cardiology. During my evaluation the patient was not in any distress, he was hemodynamically stable, all his labs were reviewed. Patient was seen today on 12/25/2024, remains in the ICU mostly because of his profound electrolyte abnormalities including hypocalcemia, hypomagnesium , hypokalemia, these are all being addressed accordingly mostly related to his GI symptoms and his pancreatitis. As well as diarrhea and nausea and vomiting. Patient is not in any distress, he is on 2 L nasal cannula, has been receiving potassium almost every 2 hours 20 mEq orally remains empirically on Zosyn, continues to have some vague abdominal pain and discomfort. WBC count today is 12.2 hemoglobin 9.5 electrolytes showed low sodium of 131 low potassium 2.9 but few hours later it was up to 3.8 renal functioning is normal calcium is up to 5.8 today. Add magnesium is up to 2.1, these are all being addressed daily. Cardiac sheppard the patient is in sinus rhythm, no further episodes of tachyarrhythmia. Seen today on 12/26/2024, patient remains in the ICU, feeling better, he has no active pulmonary symptoms no GI symptoms and no cardiac symptoms. Labs have shown significant improvement his potassium today is 4.5 calcium is up to 6 however his albumin is 1.9 which makes his corrected calcium 7.68., Improved, but not up to 8.4 or higher. Hence would recommend more calcium gluconate to be given for this patient. Magnesium not done today however was 2.1 yesterday. Seen today on 12/27/2024, patient is doing well, asymptomatic. Has some vague abdominal pain no cough no wheezing no shortness of breath no chest pain. No palpitations CBC showed leukocytosis WBC count of 15.9 hemoglobin 8.8. His el ectrolytes are normal potassium is 3.8 calcium is up to 6.8/uncorrected to albumin. Objective - Vital Signs Vital signs: Vital Signs Temp 98.1 F 12/27/24 12:00 Pulse 106 H 12/27/24 12:00 Resp 16 12/27/24 12:00 BP 106/71 12/27/24 12:00 Pulse Ox 97 12/27/24 12:00 FiO2 Intake & Output 12/26/24 12/27/24 12/27/24 18:59 06:59 18:59 Intake Total 910 240 Output Total 1000 1000 Balance -90 -1000 240 Weight 49.3 kg Intake: IV 700 Piperacillin-Tazobactam 3 100 .375 gm In Sodium Chloride 0.9% 100 ml @ 25 mls/hr IVPB Q8HR [facility] Rx# :[id number] Sodium Chloride 0.9% 1, 600 000 ml @ 75 mls/hr IV . [id number] [facility] Rx#:[id number] Oral 210 240 Output: Urine 1000 1000 Other: Voiding Method Toilet Toilet Urinal Urinal Incontinent Incontinent # Voids 1 1 # Bowel Movements 1 - Exam General appearance: Revealed a 44-year-old white male in no distress EENT: PERRLA, EOMI, nonicteric no neck masses no JVD no stridor Neck: Supple no neck masses no JVD Heart: Normal S1-S2, no S3 gallop, no murmur Lungs: Good breath sound bilaterally no crackles rhonchi or wheezes Abdomen: Flat soft nontender no rebound no guarding positive bowel sounds Skin: No rashes, no cyanosis Extremities: No clubbing edema or cyanosis Neurological: Alert oriented x 3 no gross focal neurologic deficit Psychiatric: Normal mood and affect and no mental status examination - Labs CBC & Chem 7: 12/27/24 10:59 12/27/24 10:59 Labs: Abnormal Lab Results - Last 24 Hours (Table) 12/25/24 12/27/24 12/27/24 Range/Units 15:57 10:59 10:59 WBC 15.92 H (4.50-10.00) 10*3/uL RBC 2.94 L (4.40-5.60) 10*6/uL Hgb 8.8 L (13.0-17.0) g/dL Hct 26.0 L (39.6-50.0) % Immature Gran # 0.09 H (0.00-0.04) 10*3/uL Neutrophils # 12.34 H (1.80-7.70) 10*3/uL Monocytes # 1.12 H (0.20-1.00) 10*3/uL Sodium 134 L (137-145) mmol/L Carbon Dioxide 21 L (22-30) mmol/L BUN 2 L (9-20) mg/dL Creatinine 0.27 L (0.66-1.25) mg/dL Glucose 116 H (74-99) mg/dL Calcium 6.8 L (8.4-10.2) mg/dL AST 139 H (17-59) U/L ALT 56 H (4-49) U/L Alkaline Phosphatase 280 H (38-126) U/L Total Protein 4.5 L (6.3-8.2) g/dL Albumin 1.9 L (3.5-5.0) g/dL Vit D 1,25-Dihydroxy 84.3 H (19.9-79.3) pg/mL Microbiology - Last 24 Hours (Table) 12/24/24 08:18 Blood Culture - Preliminary Blood Assessment and Plan Assessment: Impression: Ventricular tachycardia arrest most likely secondary to electrolytes imbalance with hypokalemia, hypomagnesemia and hypocalcemia Chronic pancreatitis Chronic GI symptoms Elevated ammonia level History of alcohol abuse History of splenic vein thrombosis, maintained on Eliquis History of syncope Chronic diarrhea with multiple electrolyte abnormalities Recommendation: Continue to address abnormal electrolytes accordingly Cardiology is following considering cardiac catheterization on this patient Continue present supportive care measures Continue GI DVT prophylaxis Will sign off and see the patient as needed Time with Patient: Less than 30
--- NOTE | 2024-12-27 14:19 | P.PN ---
Subjective Progress Note Date: 12/26/24 Principal diagnosis: Reason for follow-up is pneumonia/colitis Patient is a 44-year-old male with a past medical history significant for CVA TIA reflux history of recurrent/chronic pancreatitis from alcoholism and hypertension patient was brought into the hospital for lethargy seizure activity did have a cardiac arrest/V. tach requiring shock and subsequent admitted to the hospital. On today's evaluation that is 12/26/2024, the patient continues to be afebrile, the patient is on 4 L nasal oxygen and breathing slightly comfortably, the Pt denies having any chest pain or any worsening cough, the patient abdominal pain is currently controlled no vomiting still complaining some diarrhea Patient white count is down to 11.03, creatinine 0.26 Objective - Vital Signs Vital signs: Vital Signs Temp 97.7 F 12/26/24 08:00 Pulse 89 12/26/24 10:00 Resp 28 H 12/26/24 10:00 BP 107/80 12/26/24 10:00 Pulse Ox 99 12/26/24 09:00 FiO2 Intake & Output 12/25/24 12/26/24 12/26/24 18:59 06:59 18:59 Intake Total 1376.840 900 600 Output Total 180 500 750 Balance 1196.840 400 -150 Weight 51.6 kg 51.6 kg Intake: IV 675 900 600 Sodium Chloride 0.9% 1, 675 900 600 000 ml @ 75 mls/hr IV . [id number] [facility] Rx#:[id number] Intake, IV Titration 81.840 Amount Norepinephrine 8 mg In 6.840 Sodium Chloride 0.9% 250 ml @ 0.03 MCG/KG/MIN 2. 995 mls/hr IV .Q24H [facility] Rx#:[id number] Sodium Chloride 0.9% 1, 75 000 ml @ 75 mls/hr IV . [id number] [facility] Rx#:[id number] Oral 620 Output: Urine 180 500 750 Other: Voiding Method Toilet Urinal Incontinent # Voids 0 1 1 # Bowel Movements 1 - Exam GENERAL DESCRIPTION: Middle-age male lying in bed in no distress RESPIRATORY SYSTEM: Unlabored breathing , decreased breath sounds at bases HEART: S1 S2 regular rate and rhythm , ABDOMEN: Soft , no tenderness EXTREMITIES: No edema feet - Labs CBC & Chem 7: 12/27/24 10:59 06/14/25 10:59 Labs: Abnormal Lab Results - Last 24 Hours (Table) 12/25/24 12/26/24 12/26/24 Range/Units 15:57 06:01 06:01 WBC 11.03 H (4.50-10.00) 10*3/uL RBC 3.12 L (4.40-5.60) 10*6/uL Hgb 9.1 L (13.0-17.0) g/dL Hct 28.0 L (39.6-50.0) % Immature Gran # 0.07 H (0.00-0.04) 10*3/uL Monocytes # 1.19 H (0.20-1.00) 10*3/uL Sodium 133 L (137-145) mmol/L Carbon Dioxide 19 L (22-30) mmol/L BUN <2 L (9-20) mg/dL Creatinine 0.26 L (0.66-1.25) mg/dL Glucose 129 H (74-99) mg/dL Calcium 6.0 L* (8.4-10.2) mg/dL AST 140 H (17-59) U/L ALT 57 H (4-49) U/L Alkaline Phosphatase 233 H (38-126) U/L Total Protein 4.5 L (6.3-8.2) g/dL Albumin 1.9 L (3.5-5.0) g/dL Vit D 1,25-Dihydroxy 84.3 H (19.9-79.3) pg/mL Microbiology - Last 24 Hours (Table) 12/24/24 13:00 Urine Culture - Final Urine,Clean Catch 12/24/24 08:18 Blood Culture - Preliminary Blood Assessment and Plan (1) Sepsis Current Visit: Yes Status: Acute Code(s): A41.9 - SEPSIS, UNSPECIFIED ORGANISM SNOMED Code(s): 56890099 (2) Aspiration pneumonitis Current Visit: Yes Status: Acute Code(s): J69.0 - PNEUMONITIS DUE TO INHALATION OF FOOD AND VOMIT SNOMED Code(s): 247192441 (3) Colitis Current Visit: Yes Status: Acute Code(s): K52.9 - NONINFECTIVE GASTROENTERITIS AND COLITIS, UNSPECIFIED SNOMED Code(s): 85687391 Plan: 1patient presented to hospital with sepsis in this patient who did have tachycardia hypotension elevated white count meeting criteria for SIRS source likely aspiration pneumonitis as the patient did have intractable nausea vomiting before the patient has been brought to the hospital patient also have abnormality on the abdominal pelvis CT concerning for colitis question of infectious etiology need to be ruled out patient did not recall if he has been on antibiotic in the recent past 2-sputum as well as stool studies has not been collected so far 3-patient is afebrile patient white count is trending down, to continue Zosyn 3.375 g every 8 hours while waiting for the workup to be completed Dictation was produced using [employer] dictation software. please excuse any grammatical, word or spelling errors. Time with Patient: Less than 30
--- NOTE | 2024-12-27 14:20 | P.PN ---
Subjective Progress Note Date: 12/27/24 Principal diagnosis: Reason for follow-up is pneumonia/colitis Patient is a 44-year-old male with a past medical history significant for CVA TIA reflux history of recurrent/chronic pancreatitis from alcoholism and hypertension patient was brought into the hospital for lethargy seizure activity did have a cardiac arrest/V. tach requiring shock and subsequent admitted to the hospital. On today's evaluation that is 12/28/2023, patient did have a temperature of 98.1 F this morning and denies having any chills, patient is on room air and breathing comfortably no chest pain or cough, the patient did not have any nausea vomiting abdominal pain is slightly decreased still complaining of some diarrhea Patient white count is up to 15.92 creatinine 0.27 blood urine culture have been negative Objective - Vital Signs Vital signs: Vital Signs Temp 98.1 F 12/27/24 12:00 Pulse 106 H 12/27/24 12:00 Resp 16 12/27/24 12:00 BP 106/71 12/27/24 12:00 Pulse Ox 97 12/27/24 12:00 FiO2 Intake & Output 12/26/24 12/27/24 12/27/24 18:59 06:59 18:59 Intake Total 910 240 Output Total 1000 1000 Balance -90 -1000 240 Weight 49.3 kg Intake: IV 700 Piperacillin-Tazobactam 3 100 .375 gm In Sodium Chloride 0.9% 100 ml @ 25 mls/hr IVPB Q8HR [facility] Rx# :[id number] Sodium Chloride 0.9% 1, 600 000 ml @ 75 mls/hr IV . [id number] [facility] Rx#:[id number] Oral 210 240 Output: Urine 1000 1000 Other: Voiding Method Toilet Toilet Urinal Urinal Incontinent Incontinent # Voids 1 1 # Bowel Movements 1 - Exam GENERAL DESCRIPTION: Middle-age male lying in bed in no distress RESPIRATORY SYSTEM: Unlabored breathing , decreased breath sounds at bases HEART: S1 S2 regular rate and rhythm , ABDOMEN: Soft , no tenderness EXTREMITIES: No edema feet - Labs CBC & Chem 7: 12/27/24 10:59 12/27/24 10:59 Labs: Abnormal Lab Results - Last 24 Hours (Table) 12/27/24 12/27/24 Range/Units 10:59 10:59 WBC 15.92 H (4.50-10.00) 10*3/uL RBC 2.94 L (4.40-5.60) 10*6/uL Hgb 8.8 L (13.0-17.0) g/dL Hct 26.0 L (39.6-50.0) % Immature Gran # 0.09 H (0.00-0.04) 10*3/uL Neutrophils # 12.34 H (1.80-7.70) 10*3/uL Monocytes # 1.12 H (0.20-1.00) 10*3/uL Sodium 134 L (137-145) mmol/L Carbon Dioxide 21 L (22-30) mmol/L BUN 2 L (9-20) mg/dL Creatinine 0.27 L (0.66-1.25) mg/dL Glucose 116 H (74-99) mg/dL Calcium 6.8 L (8.4-10.2) mg/dL AST 139 H (17-59) U/L ALT 56 H (4-49) U/L Alkaline Phosphatase 280 H (38-126) U/L Total Protein 4.5 L (6.3-8.2) g/dL Albumin 1.9 L (3.5-5.0) g/dL Microbiology - Last 24 Hours (Table) 12/24/24 08:18 Blood Culture - Preliminary Blood Assessment and Plan (1) Sepsis Current Visit: Yes Status: Acute Code(s): A41.9 - SEPSIS, UNSPECIFIED ORGANISM SNOMED Code(s): 93987298 (2) Aspiration pneumonitis Current Visit: Yes Status: Acute Code(s): J69.0 - PNEUMONITIS DUE TO INH ALATION OF FOOD AND VOMIT SNOMED Code(s): 441753285 (3) Colitis Current Visit: Yes Status: Acute Code(s): K52.9 - NONINFECTIVE GASTROENTERITIS AND COLITIS, UNSPECIFIED SNOMED Code(s): 86982935 Plan: 1patient presented to hospital with sepsis in this patient who did have tachycardia hypotension elevated white count meeting criteria for SIRS source likely aspiration pneumonitis as the patient did have intractable nausea vomiting before the patient has been brought to the hospital patient also have abnormality on the abdominal pelvis CT concerning for colitis question of infectious etiology need to be ruled out patient did not recall if he has been on antibiotic in the recent past 2-sputum as well as stool studies has not been collected so far 3-patient is afebrile patient white count is slightly up today, patient is currently being treated with Zosyn 3.375 g every 8 hours, I discussed with the nursing staff again to obtain stool studies Dictation was produced using [employer] dictation software. please excuse any grammatical, word or spelling errors.
[2024-12-28] MEDS ORDERED: Magnesium Replacement Protocol 1 EACH MISC MISCELLANE PRN (08:47)
[2024-12-28] MEDS: MAGNESIUM SULFATE-D5W PMX 1 GM in DEXTROSE/WATER 1 100ML.BAG IVPB SCH (09:37)
[2024-12-28] MEDS ORDERED: NITROGLYCERIN SL TABS 0.4 MG TAB SUBLINGUAL PRN (09:39)
--- NOTE | 2024-12-28 09:39 | P.PN ---
Subjective HISTORY OF PRESENT ILLNESS: This is a 44-year-old male with a past medical history significant for syncope, pancreatitis, splenic vein thrombosis, and alcohol abuse. Patient does not follow with a pulverizer. We have been asked to see the patient in consultation for cardiac arrest. Apparently the patient was having altered mental status at home and EMS was called. Patient was found to be in ventricular tachycardia and CPR was started. 1 shock was delivered. The patient then had ROSC. Apparently no medications were given. The patient is seen and examined at the bedside in the emergency room. Patient is awake and alert. He currently denies any chest pain or pressure. Denies any shortness of breath. Patient does not remember any of the episodes that happened this morning. He just remembers waking up in the ambulance. He states he has not had any alcohol to drink in 2 to 3 days. He does state he has a history of alcohol abuse and drinks twisted teas. DIAGNOSTICS: - EKG reveals sinus tachycardia with no signs of acute ischemia. - Chest xray negative for acute process. - Laboratory data: WBC 13.81. Hemoglobin 10.7. Platelet count 356. Sodium 135. Potassium 2.3. BUN 5. Creatinine 0.31. Calcium 4.1. Magnesium 0.5. AST 223. ALT 55. Troponin 0.022. proBNP 329. - Current home cardiac medication list is not updated at the time of this dictation - No previous echocardiogram, stress test, or cardiac catheterization available in EMR for review 12/27/2024 Patient examined this morning at the bedside. Patient currently denies any chest pain or pressure. He denies shortness of breath. Vital signs are stable. Echocardiogram completed revealing ejection fraction 20 to 25%, anterior apical, apical lateral and apical akinesis, possible Takotsubo, mild aortic and mitral regurgitation, mild tricuspid regurgitation 12/28/2024 Patient examined this morning at the bedside. Patient without complaints of chest pain or pressure. He denies shortness of breath. Repeat limited echo performed revealed ejection fraction 30 to 35%, apex akinetic PHYSICAL EXAM: VITAL SIGNS: Reviewed. GENERAL: Well-developed in no acute distress. HEENT: Head is normocephalic. Pupils are equal, round. Sclerae anicteric. Mucous membranes of the mouth are moist. Neck supple. No JVD or thyromegaly LUNGS: Respirations even and unlabored. Lungs essentially clear to auscultation bilaterally. HEART: Regular rate and rhythm. S1 and S2 heard. ABDOMEN: Soft. Nondistended. Nontender. EXTREMITIES: Normal range of motion. No clubbing or cyanosis. Peripheral pulses intact. No lower extremity edema NEUROLOGIC: Awake and alert. Oriented x 3. ASSESSMENT: V tach cardiac arrest Cardiomyopathy, EF 20 to 25%, ischemic versus nonischemic, possible Takotsubo, repeat echo 30-35% Hypokalemia Hypomagnesemia Hypocalcemia Transaminitis Elevated ammonia level Coagulopathy, secondary to liver disease, INR 1.9 History of alcohol abuse History of pancreatitis History of splenic vein thrombosis, previously on Eliquis History of syncope Aspiration pneumonitis Colitis PLAN: Continue current cardiac medications N.p.o. at midnight Patient to undergo cardiac catheterization tomorrow with Dr. Oneil Further recommendations pending patient course Nurse practitioner note has been reviewed by physician. Signing provider agrees with the documented findings, assessment, and plan of care documented by [employer] TECHNICIAN as a scribe. Objective - Vital Signs Vital signs: Vital Signs Temp 97.7 F 12/28/24 08:00 Pulse 119 H 12/28/24 08:00 Resp 16 12/28/24 08:00 BP 115/84 12/28/24 08:00 Pulse Ox 93 L 12/28/24 08:00 FiO2 Intake & Output 12/27/24 12/28/24 12/28/24 18:59 06:59 18:59 Intake Total 780 240 Output Total 500 Balance 780 -260 Weight 49.2 kg Intake: Intake, IV Titration 100 Amount Piperacillin-Tazobactam 3 100 .375 gm In Sodium Chloride 0.9% 100 ml @ 25 mls/hr IVPB Q8HR [facility] Rx# :[id number] Oral 680 240 Output: Urine 500 Other: Voiding Method Toilet Urinal Urinal Incontinent # Voids 1 - Labs CBC & Chem 7: 12/27/24 10:59 12/27/24 10:59 Labs: Abnormal Lab Results - Last 24 Hours (Table) 12/27/24 12/27/24 12/28/24 Range/Units 10:59 10:59 06:44 WBC 15.92 H (4.50-10.00) 10*3/uL RBC 2.94 L (4.40-5.60) 10*6/uL Hgb 8.8 L (13.0-17.0) g/dL Hct 26.0 L (39.6-50.0) % Immature Gran # 0.09 H (0.00-0.04) 10*3/uL Neutrophils # 12.34 H (1.80-7.70) 10*3/uL Monocytes # 1.12 H (0.20-1.00) 10*3/uL Sodium 134 L (137-145) mmol/L Carbon Dioxide 21 L (22-30) mmol/L BUN 2 L (9-20) mg/dL Creatinine 0.27 L (0.66-1.25) mg/dL Glucose 116 H (74-99) mg/dL Calcium 6.8 L (8.4-10.2) mg/dL Magnesium 0.8 L* (1.6-2.3) mg/dL AST 139 H (17-59) U/L ALT 56 H (4-49) U/L Alkaline Phosphatase 280 H (38-126) U/L Total Protein 4.5 L (6.3-8.2) g/dL Albumin 1.9 L (3.5-5.0) g/dL Microbiology - Last 24 Hours (Table) 12/24/24 08:18 Blood Culture - Preliminary Blood
--- NOTE | 2024-12-28 13:24 | P.PN ---
Subjective This is a pleasant 44 years old male with past medical history of alcohol use disorder presents because of cardiac arrest at happened briefly at home after he was been vomiting it twice. He lost his pulse and he required CPR, Patient was found to have cardiac arrest secondary to V. tach secondary to electrolyte imbalance from his history of severe alcohol use disorder and severe electrolyte imbalance including hypokalemia hypocalcemia and hypomagnesemia. Currently awake alert looks comfortable lying in bed, mildly fatigued. Complaining from epigastric pain and tenderness but this is looks chronic related to his chronic pancreatitis. There was concerns of aspiration pneumonia and patient was started on Zosyn however his breathing is okay and he is on room air. No much of abdominal pain or tenderness related to his colitis no vomiting and he tolerates diet well. Yesterday had 1 very loose bowel movement. No tremor or significant withdrawal symptoms. He complains from chest wall tenderness from compression during CPR Hemodynamically stable Labs reviewed today WBC 11, hemoglobin 9, potassium 4.4 was 2.9 earlier, sodium 131 and calcium low 5.8 He is on Zosyn normal saline 75 mL/h amiodarone and metoprolol 12/27 Patient moved of the ICU to the general medical floor at [facility] unit Awake alert. Still complains from soreness in his chest wall from CPR and some abdominal discomfort but no abdominal pain. He tolerated diet well. He states he has 2 loose bowel movement yesterday and no bowel movement today. Electrolytes still pending Hemoglobin stable at 8.8 WBC 15,000 Remains on Zosyn and normal saline at 75 mL/h 12/28 Patient awake up in bed looks comfortable Complains from little shortness of breath, he has very mild wheezing. He is getting normal sinus 75 mL/h. Patient with no leg edema. His echocardiogram showed low ejection fraction 20% No chest pain. Patient is planned to undergo cardiac cath tomorrow. Magnesium level is low 0.8 which has been replaced He has some diarrhea, C. difficile is requested Continue Zosyn Objective - Vital Signs Vital signs: Vital Signs Temp 97.7 F 12/28/24 08:00 Pulse 119 H 12/28/24 08:00 Resp 16 12/28/24 08:00 BP 115/84 12/28/24 08:00 Pulse Ox 93 L 12/28/24 08:00 FiO2 Intake & Output 12/27/24 12/28/24 12/28/24 18:59 06:59 18:59 Intake Total 780 240 Output Total 500 Balance 780 -260 Weight 49.2 kg Intake: Intake, IV Titration 100 Amount Piperacillin-Tazobactam 3 100 .375 gm In Sodium Chloride 0.9% 100 ml @ 25 mls/hr IVPB Q8HR [facility] Rx# :[id number] Oral 680 240 Output: Urine 500 Other: Voiding Method Toilet Urinal Urinal Incontinent # Voids 1 - Exam GENERAL: The patient is alert and oriented x3, not in any acute distress. Well developed, well nourished. HEENT: Pupils are round and equally reacting to light. EOMI. No scleral icterus. No conjunctival pallor. Normocephalic, atraumatic. No pharyngeal erythema. No thyromegaly. CARDIOVASCULAR: S1 and S2 present. No murmurs, rubs, or gallops. PULMONARY: Chest is clear to auscultation, no wheezing , no crackles. -ABDOMEN: Soft, epigastric tenderness, no rebound tenderness nondistended, normoactive bowel sounds. No palpable organomegaly. MUSCULOSKELETAL: No joint swelling or deformity. EXTREMITIES: No cyanosis, clubbing, or pedal edema. NEUROLOGICAL: Gross neurological examination did not reveal any focal deficits. SKIN: No rashes. no petechiae. - Labs CBC & Chem 7: 12/27/24 10:59 12/27/24 10:59 Labs: Abnormal Lab Results - Last 24 Hours (Table) 12/28/24 Range/Units 06:44 Magnesium 0.8 L* (1.6-2.3) mg/dL Microbiology - Last 24 Hours (Table) 12/24/24 08:18 Blood Culture - Preliminary Blood Assessment and Plan Assessment: Cardiac arrest secondary to V. 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 Oneil Replace electrolytes aggressively including potassium magnesium and calcium Continue telemetry monitoring Cardiology team following closely patient continues amiodarone and metoprolol. Pulmonary/critical care team consult GI team consult sign of the case Labs and medication were reviewed.. Continue same treatment. Continue with symptomatic treatment. Resume home medication. Monitor labs and vitals. DVT and GI prophylaxis. Further recommendations as per clinical course of the patient DVT prophylaxis: Subcutaneous heparin GI Prophylaxis: Pe Protonix PT/OT: Pending Prognosis is guarded
[2024-12-28] MEDS: IPRATROPIUM-ALBUTEROL 3 ML NEB INHALATION STA (14:48)
--- NOTE | 2024-12-28 15:34 | P.PN ---
Subjective Progress Note Date: 12/28/24 Principal diagnosis: Reason for follow-up is pneumonia/colitis Patient is a 44-year-old male with a past medical history significant for CVA TIA reflux history of recurrent/chronic pancreatitis from alcoholism and hypertension patient was brought into the hospital for lethargy seizure activity did have a cardiac arrest/V. tach requiring shock and subsequent admitted to the hospital. On today's evaluation that is 12/28/2024, Patient is afebrile patient is currently on room air and denies having any shortness of breath, the patient has been complaining of chest pain from the chest compressions and shock denies any worsening cough no abdominal pain and no diarrhea reported by the nursing staff. No CBC was done today blood urine has been negative sputum not collected Objective - Vital Signs Vital signs: Vital Signs Temp 97.4 F L 12/28/24 12:00 Pulse 110 H 12/28/24 15:06 Resp 16 12/28/24 13:48 BP 100/70 12/28/24 12:00 Pulse Ox 93 L 12/28/24 12:00 FiO2 Intake & Output 12/27/24 12/28/24 12/28/24 18:59 06:59 18:59 Intake Total 780 240 650 Output Total 500 400 Balance 780 -260 250 Weight 49.2 kg Intake: IV 250 Piperacillin-Tazobactam 3 100 .375 gm In Sodium Chloride 0.9% 100 ml @ 25 mls/hr IVPB Q8HR [facility] Rx# :[id number] Sodium Chloride 0.9% 1, 150 000 ml @ 75 mls/hr IV . [id number] [facility] Rx#:[id number] Intake, IV Titration 100 400 Amount Magnesium Sulfate-D5w Pmx 400 1 gm In Dextrose/Water 1 100ml.bag @ 100 mls/hr IVPB Q1H [facility] Rx#: [id number] Piperacillin-Tazobactam 3 100 .375 gm In Sodium Chloride 0.9% 100 ml @ 25 mls/hr IVPB Q8HR [facility] Rx# :[id number] Oral 680 240 Output: Urine 500 400 Other: Voiding Method Toilet Urinal Urinal Urinal Incontinent # Voids 1 - Exam GENERAL DESCRIPTION: Middle-age male lying in bed in no distress RESPIRATORY SYSTEM: Unlabored breathing , decreased breath sounds at bases HEART: S1 S2 regular rate and rhythm , ABDOMEN: Soft , no tenderness EXTREMITIES: No edema feet - Labs CBC & Chem 7: 12/27/24 10:59 12/27/24 10:59 Labs: Abnormal Lab Results - Last 24 Hours (Table) 12/28/24 Range/Units 06:44 Magnesium 0.8 L* (1.6-2.3) mg/dL Microbiology - Last 24 Hours (Table) 12/24/24 08:18 Blood Culture - Preliminary Blood Assessment and Plan (1) Sepsis Current Visit: Yes Status: Acute Code(s): A41.9 - SEPSIS, UNSPECIFIED ORGANISM SNOMED Code(s): 65467401 (2) Aspiration pneumonitis Current Visit: Yes Status: Acute Code(s): J69.0 - PNEUMONITIS DUE TO INHALATION OF FOOD AND VOMIT SNOMED Code(s): 930955856 (3) Colitis Current Visit: Yes Status: Acute Code(s): K52.9 - NONINFECTIVE GASTROENTERITIS AND COLITIS, UNSPECIFIED SNOMED Code(s): 44852457 Plan: 1patient presented to hospital with sepsis in this patient who did have tachycardia hypotension elevated white count meeting criteria for SIRS source likely aspiration pneumonitis as the patient did have intractable nausea vomiting before the patient has been brought to the hospital patient also have abnormality on the abdominal pelvis CT concerning for colitis question of infectious etiology need to be ruled out patient did not recall if he has been on antibiotic in the recent past 2-sputum as well as stool studies has not been collected so far 3-patient is afebrile patient white count is slightly up yesterday however no CBC was done today confirm with the nursing staff patient not having any diarrhea so no stool studies has been collected 4 patient is currently being treated with Zosyn 3.375 g every 8 hours, will check CBC with a.m. lab to make sure white count is trending down Dictation was produced using [employer] software. please excuse any grammatical, word or spelling errors.
[2024-12-28] MEDS: ALPRAZolam 0.25 MG TAB PO PRN (23:03)
[2024-12-28] MEDS: SODIUM CHLORIDE 0.9% 1,000 ML in EMPTY BAG 1 BAG IV SCH (23:04)
[2024-12-29 06:58] LABS: Basophils # (A) 0.04 10*3/uL (0.00-0.10); Basophils % (A) 0.2 %; Eosinophils # (A) 0.03 10*3/uL (0.04-0.35); Eosinophils % (A) 0.1 %; HCT 25.2 % (39.6-50.0); HGB 8.6 g/dL (13.0-17.0); Lymphocytes # (A) 1.76 10*3/uL (0.90-5.00); Lymphocytes % (A) 7.7 %; MCH 30.0 pg (27.0-32.0); MCHC 34.1 g/dL (32.0-37.0); MCV 87.8 fL (80.0-97.0); Monocytes # (A) 1.12 10*3/uL (0.20-1.00); Monocytes % (A) 4.9 %; Neutrophils # (A) 19.70 10*3/uL (1.80-7.70); Neutrophils % (A) 86.2 %; Platelet Count 429 10*3/uL (140-440); RBC 2.87 10*6/uL (4.40-5.60); RDW 18.2 % (11.5-14.5); WBC 22.86 10*3/uL (4.50-10.00)
[2024-12-29 07:16] LABS: ALT 39 U/L (4-49); AST 61 U/L (17-59); African American GFR (CKD) >90 (>60 ml/min/1.73 sqM); Albumin 1.9 g/dL (3.5-5.0); Alkaline Phosphatase 291 U/L (38-126); Anion Gap 7 mmol/L; Blood Urea Nitrogen 3 mg/dL (9-20); Carbon Dioxide 20 mmol/L (22-30); Chloride 109 mmol/L (98-107); Glucose 140 mg/dL (74-99); Non-African American GFR(CKD) >90 (>60 ml/min/1.73 sqM); Potassium 3.4 mmol/L (3.5-5.1); Sodium 136 mmol/L (137-145); Total Protein 4.4 g/dL (6.3-8.2)
[2024-12-29 07:33] LABS: Calcium 6.4 mg/dL (8.4-10.2)
[2024-12-29] MEDS: ATORVASTATIN 80 MG TAB PO ONE (08:48)
[2024-12-29] MEDS: ALPRAZolam 0.5 MG TAB PO PRN (08:48)
[2024-12-29] MEDS: ASPIRIN 325 MG TAB PO ONE (08:48)
[2024-12-29] MEDS: HEPARIN SODIUM,PORCINE (1 ML) 2,500 UNIT in SODIUM CHLORIDE 0.9% 250 ML IRRIGATION PRN (09:41)
[2024-12-29] MEDS: HEPARIN SODIUM,PORCINE 10,000 UNIT in SODIUM CHLORIDE 0.9% 1,000 ML IRRIGATION PRN (09:41)
[2024-12-29] MEDS: LIDOCAINE 1% INJ 10MG/ML (20 ML MDV) SQ ONE (10:08)
[2024-12-29] MEDS: MIDAZOLAM 2 MG/2 ML VIAL IVP ONE (10:16)
[2024-12-29] MEDS: fentaNYL (PF) 50 MCG/ML 2 ML AMP IVP ONE (10:17)
[2024-12-29] MEDS: IOPAMIDOL-300 100ML BTL INJ ONE (10:28)
[2024-12-29] MEDS ORDERED: RX INFO: IV CONTRAST WAS GIVEN 1 EACH MISC MISCELLANE PRN (11:00)
--- NOTE | 2024-12-29 11:14 | CC ---
CARDIAC CATHETERIZATION REPORT INDICATION: Cardiomyopathy with systolic heart failure. PROCEDURE NOTE: After obtaining informed consent, left heart catheterization and coronary angiogram were performed via the right femoral artery using standard Neto catheters. The patient tolerated the procedure well without any obvious immediate complications. Femoral angiogram was performed, and Angio-Seal was deployed for hemostasis. Total sedation time was 22 minutes. I initially attempted right radial artery access and was unsuccessful, hence proceeded with femoral cath. FINDINGS: 1. Hemodynamics: Left ventricular end-diastolic pressure is 9 mm. There is no significant gradient across the aortic valve. 2. Left ventriculogram: Left ventriculogram is not performed. 3. Angiographic data: a.Right coronary artery: Right coronary artery is a large dominant vessel and is free of significant stenosis. b.Left main coronary artery is a short vessel and is free of disease, divides into left anterior descending coronary artery and circumflex coronary artery. LAD and its branches, circumflex coronary artery and its branches are free of significant stenosis. CONCLUSIONS: 1. Normal coronary arteries. 2. Cardiomyopathy is nonischemic in etiology. MMODL / IJN: [id number] /
[2024-12-29] MEDS: MIDODRINE 5 MG TAB PO SCH (11:24)
--- NOTE | 2024-12-29 11:35 | XR ---
EXAMINATION TYPE: XR chest 1V portable DATE OF EXAM: 12/29/2024 11:24 AM COMPARISON: Chest radiographs from 12/24/2024. CLINICAL INDICATION: Male, 44 years old with history of chf; [facility] TECHNIQUE: XR chest 1V portable Frontal view of the chest. FINDINGS: Lungs/Pleura: Multifocal airspace opacities. No evidence of pneumothorax or pleural effusion. Pulmonary vascularity: Unremarkable. Heart/mediastinum: Cardiomediastinal silhouette is unremarkable. Musculoskeletal: No acute osseous pathology. Other findings: None IMPRESSION: Multifocal airspace opacities concerning for pneumonia. [facility], , 12/29/2024 11:32 AM
--- NOTE | 2024-12-29 12:41 | P.PN ---
Subjective Progress Note Date: 12/29/24 HISTORY OF PRESENT ILLNESS: This is a 44-year-old male with a past medical history significant for syncope, pancreatitis, splenic vein thrombosis, and alcohol abuse. 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 We have been asked to see the patient in consultation for cardiac arrest. Apparently the patient was having altered mental status at home and EMS was called. Patient was found to be in ventri cular tachycardia and CPR was started. 1 shock was delivered. The patient then had ROSC. Apparently no medications were given. The patient is seen and examined at the bedside in the emergency room. Patient is awake and alert. He currently denies any chest pain or pressure. Denies any shortness of breath. Patient does not remember any of the episodes that happened this morning. He just remembers waking up in the ambulance. He states he has not had any alcohol to drink in 2 to 3 days. He does state he has a history of alcohol abuse and drinks twisted teas. DIAGNOSTICS: - EKG reveals sinus tachycardia with no signs of acute ischemia. - Chest xray negative for acute process. - Laboratory data: WBC 13.81. Hemoglobin 10.7. Platelet count 356. Sodium 135. Potassium 2.3. BUN 5. Creatinine 0.31. Calcium 4.1. Magnesium 0.5. AST 223. ALT 55. Troponin 0.022. proBNP 329. - Current home cardiac medication list is not updated at the time of this dictation - No previous echocardiogram, stress test, or cardiac catheterization available in EMR for review 12/27/2024 Patient examined this morning at the bedside. Patient currently denies any chest pain or pressure. He denies shortness of breath. Vital signs are stable. Echocardiogram completed revealing ejection fraction 20 to 25%, anterior apical, apical lateral and apical akinesis, possible Takotsubo, mild aortic and mitral regurgitation, mild tricuspid regurgitation 12/28/2024 Patient examined this morning at the bedside. Patient without complaints of chest pain or pressure. He denies shortness of breath. Repeat limited echo performed revealed ejection fraction 30 to 35%, apex akinetic 12/28/2024 Patient seen and examined. Patient denies chest pain or chest pressure. He denies shortness of breath. He is scheduled for cardiac catheterization today which will be done by Dr. Rosario. Blood pressure 98/67, heart rate 109, pulse ox 96% on room air. Repeat blood work reveals WBC 22.8, hemoglobin 8.6. Sodium 136, potassium 3.4, BUN 3 and creatinine 0.3. Calcium 6.4. AST 61, alkaline phosphatase 291. Repeat chest x-ray reveals multifocal airspace opacities concerning for pneumonia PHYSICAL EXAM: VITAL SIGNS: Reviewed. GENERAL: Well-developed in no acute distress. HEENT: Head is normocephalic. Pupils are equal, round. Sclerae anicteric. Mucous membranes of the mouth are moist. Neck supple. No JVD or thyromegaly LUNGS: Respirations even and unlabored. Lungs essentially clear to auscultation bilaterally. HEART: Regular rate and rhythm. S1 and S2 heard. ABDOMEN: Soft. Nondistended. Nontender. EXTREMITIES: Normal range of motion. No clubbing or cyanosis. Peripheral pulses intact. No lower extremity edema NEUROLOGIC: Awake and alert. Oriented x 3. ASSESSMENT: V tach cardiac arrest Cardiomyopathy, EF 20 to 25%, ischemic versus nonischemic, possible Takotsubo, repeat echo 30-35% Hypokalemia Hypomagnesemia Hypocalcemia Transaminitis Elevated ammonia level Coagulopathy, secondary to liver disease, INR 1.9 History of alcohol abuse History of pancreatitis History of splenic vein thrombosis, previously on Eliquis History of syncope Aspiration pneumonitis Colitis PLAN: Continue current cardiac medications N.p.o. at midnight Patient to undergo cardiac catheterization today with Dr. Rosario Further recommendations pending patient course Nurse practitioner note has been reviewed by physician. Signing provider agrees with the documented findings, assessment, and plan of care documented by KNOT BORER as a scribe. Objective - Vital Signs Vital signs: Vital Signs Temp 98.1 F 12/29/24 04:00 Pulse 108 H 12/29/24 04:00 Resp 18 12/29/24 04:00 BP 102/72 12/29/24 04:00 Pulse Ox 93 L 12/29/24 04:00 FiO2 Intake & Output 12/28/24 12/29/24 12/29/24 18:59 06:59 18:59 Intake Total 650 260 Output Total 400 1375 Balance 250 -1115 Weight 48.4 kg Intake: IV 250 20 Invasive Line 5 20 Piperacillin-Tazobactam 3 100 .375 gm In Sodium Chloride 0.9% 100 ml @ 25 mls/hr IVPB Q8HR VLAD Rx# :[id number] Sodium Chloride 0.9% 1, 150 000 ml @ 75 mls/hr IV . [id number] VLAD Rx#:[id number] Intake, IV Titration 400 Amount Magnesium Sulfate-D5w Pmx 400 1 gm In Dextrose/Water 1 100ml.bag @ 100 mls/hr IVPB Q1H VLAD Rx#: [id number] Oral 240 Output: Urine 400 1375 Other: Voiding Method Urinal Urinal # Voids 1 - Labs CBC & Chem 7: 12/29/24 06:20 12/29/24 06:20 Labs: Abnormal Lab Results - Last 24 Hours (Table) 12/28/24 12/29/24 12/29/24 Range/Units 06:44 06:20 06:20 WBC 22.86 H (4.50-10.00) 10*3/uL RBC 2.87 L (4.40-5.60) 10*6/uL Hgb 8.6 L (13.0-17.0) g/dL Hct 25.2 L (39.6-50.0) % Immature Gran # 0.21 H (0.00-0.04) 10*3/uL Neutrophils # 19.70 H (1.80-7.70) 10*3/uL Monocytes # 1.12 H (0.20-1.00) 10*3/uL Eosinophils # 0.03 L (0.04-0.35) 10*3/uL Sodium 136 L (137-145) mmol/L Potassium 3.4 L (3.5-5.1) mmol/L Chloride 109 H (98-107) mmol/L Carbon Dioxide 20 L (22-30) mmol/L BUN 3 L (9-20) mg/dL Creatinine 0.30 L (0.66-1.25) mg/dL Glucose 140 H (74-99) mg/dL Calcium 6.4 L* (8.4-10.2) mg/dL Magnesium 0.8 L* (1.6-2.3) mg/dL Total Bilirubin 1.4 H (0.2-1.3) mg/dL AST 61 H (17-59) U/L Alkaline Phosphatase 291 H (38-126) U/L C-Reactive Protein 5.3 H (<1.0) mg/dL Total Protein 4.4 L (6.3-8.2) g/dL Albumin 1.9 L (3.5-5.0) g/dL
[2024-12-29] MEDS: IPRATROPIUM-ALBUTEROL 3 ML NEB INHALATION PRN (16:29)
[2024-12-29] MEDS: HYDROmorphone 0.5 MG/0.5 ML SYRINGE IVP PRN (21:09)
--- NOTE | 2024-12-30 01:45 | PN ---
PROGRESS NOTE DATE OF SERVICE: 12/29/2024 SUBJECTIVE: This 44-year-old gentleman, who was admitted with ventricular tachycardia and hypomagnesemia, and other medical problems, slated to have cardiac cath today. No chest pain. No palpitation. PHYSICAL EXAMINATION: VITAL SIGNS: Pulse is 109, blood pressure n, and respirations 16. CHEST: Clear to auscultation. CARDIOVASCULAR: S1 and S2. ABDOMEN: Soft. NERVOUS SYSTEM: Nonfocal. LABORATORY DATA: Reviewed. ASSESSMENT: 1. Cardiac arrest, possibly secondary to ventricular tachycardia secondary to multiple and acute abnormalities. 2. Severe hypokalemia, hypomagnesemia and hypocalcemia. 3. History of EtOH. 4. Possible acute colitis. 5. Diabetes mellitus, type 2, uncontrolled. 6. History of pancreatitis. 7. Tachycardia. 8. Anemia. 9. Possible cardiomyopathy with impaired LV systolic function with segmental wall abnormalities, rule out coronary artery disease. 10.Ejection fraction 40%. 11.Possible right lower lobe pneumonia, possibly aspiration. 12.Hepatic encephalopathy. RECOMMENDATIONS: Recommend to continue current management and continue symptomatic treatment. Otherwise repeat labs, cardiac cath per Cardiology. Prognosis guarded because of multiple complex medical issues. Further recommendations to follow. MMODL / IJN: [id number] / [email or web address]
[2024-12-30 07:48] LABS: Basophils # (A) 0.05 10*3/uL (0.00-0.10); Basophils % (A) 0.2 %; Eosinophils # (A) 0.08 10*3/uL (0.04-0.35); Eosinophils % (A) 0.3 %; HCT 26.6 % (39.6-50.0); HGB 8.8 g/dL (13.0-17.0); Lymphocytes # (A) 2.42 10*3/uL (0.90-5.00); Lymphocytes % (A) 9.5 %; MCH 30.7 pg (27.0-32.0); MCHC 33.1 g/dL (32.0-37.0); MCV 92.7 fL (80.0-97.0); Monocytes # (A) 1.10 10*3/uL (0.20-1.00); Monocytes % (A) 4.3 %; Neutrophils # (A) 21.64 10*3/uL (1.80-7.70); Neutrophils % (A) 84.8 %; Platelet Count 446 10*3/uL (140-440); RBC 2.87 10*6/uL (4.40-5.60); RDW 19.9 % (11.5-14.5); WBC 25.52 10*3/uL (4.50-10.00)
[2024-12-30 08:12] LABS: ALT 41 U/L (4-49); AST 103 U/L (17-59); African American GFR (CKD) >90 (>60 ml/min/1.73 sqM); Albumin 1.8 g/dL (3.5-5.0); Alkaline Phosphatase 298 U/L (38-126); Anion Gap 7 mmol/L; Blood Urea Nitrogen 5 mg/dL (9-20); Carbon Dioxide 20 mmol/L (22-30); Chloride 110 mmol/L (98-107); Glucose 108 mg/dL (74-99); Non-African American GFR(CKD) >90 (>60 ml/min/1.73 sqM); Potassium 3.5 mmol/L (3.5-5.1); Sodium 137 mmol/L (137-145); Total Protein 4.4 g/dL (6.3-8.2)
[2024-12-30 08:27] LABS: Calcium 6.2 mg/dL (8.4-10.2)
--- NOTE | 2024-12-30 10:29 | P.PN ---
Subjective Progress Note Date: 12/30/24 HISTORY OF PRESENT ILLNESS: This is a 44-year-old male with a past medical history significant for syncope, pancreatitis, splenic vein thrombosis, and alcohol abuse. 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 We have been asked to see the patient in consultation for cardiac arrest. Apparently the patient was having altered mental status at home and EMS was called. Patient was found to be in ventric ular tachycardia and CPR was started. 1 shock was delivered. The patient then had ROSC. Apparently no medications were given. The patient is seen and examined at the bedside in the emergency room. Patient is awake and alert. He currently denies any chest pain or pressure. Denies any shortness of breath. Patient does not remember any of the episodes that happened this morning. He just remembers waking up in the ambulance. He states he has not had any alcohol to drink in 2 to 3 days. He does state he has a history of alcohol abuse and drinks twisted teas. DIAGNOSTICS: - EKG reveals sinus tachycardia with no signs of acute ischemia. - Chest xray negative for acute process. - Laboratory data: WBC 13.81. Hemoglobin 10.7. Platelet count 356. Sodium 135. Potassium 2.3. BUN 5. Creatinine 0.31. Calcium 4.1. Magnesium 0.5. AST 223. ALT 55. Troponin 0.022. proBNP 329. - Current home cardiac medication list is not updated at the time of this dictation - No previous echocardiogram, stress test, or cardiac catheterization available in EMR for review 12/27/2024 Patient examined this morning at the bedside. Patient currently denies any chest pain or pressure. He denies shortness of breath. Vital signs are stable. Echocardiogram completed revealing ejection fraction 20 to 25%, anterior apical, apical lateral and apical akinesis, possible Takotsubo, mild aortic and mitral regurgitation, mild tricuspid regurgitation 12/28/2024 Patient examined this morning at the bedside. Patient without complaints of chest pain or pressure. He denies shortness of breath. Repeat limited echo performed revealed ejection fraction 30 to 35%, apex akinetic 12/29/2024 Patient seen and examined. Patient denies chest pain or chest pressure. He denies shortness of breath. He is scheduled for cardiac catheterization today which will be done by Dr. Rosario. Blood pressure 98/67, heart rate 109, pulse ox 96% on room air. Repeat blood work reveals WBC 22.8, hemoglobin 8.6. Sodium 136, potassium 3.4, BUN 3 and creatinine 0.3. Calcium 6.4. AST 61, alkaline phosphatase 291. Repeat chest x-ray reveals multifocal airspace opacities concerning for pneumonia 12/30/2024 Patient seen and examined. Yesterday, he underwent cardiac catheterization with Dr. Rosario which revealed normal coronary arteries. Cardiomyopathy is nonischemic in etiology. Repeat chest x-ray reveals multifocal airspace opacities concerning for pneumonia. Blood pressure 100/65, heart rate 102, pulse ox 99% on room air. PHYSICAL EXAM: VITAL SIGNS: Reviewed. GENERAL: Well-developed in no acute distress. HEENT: Head is normocephalic. Pupils are equal, round. Sclerae anicteric. Mucous membranes of the mouth are moist. Neck supple. No JVD or thyromegaly LUNGS: Respirations even and unlabored. Lungs essentially clear to auscultation bilaterally. HEART: Regular rate and rhythm. S1 and S2 heard. ABDOMEN: Soft. Nondistended. Nontender. EXTREMITIES: Normal range of motion. No clubbing or cyanosis. Peripheral pulses intact. No lower extremity edema NEUROLOGIC: Awake and alert. Oriented x 3. ASSESSMENT: V tach cardiac arrest Cardiomyopathy, EF 20 to 25%, nonischemic, possible Takotsubo, repeat echo 30- 35% Hypokalemia Hypomagnesemia Hypocalcemia Transaminitis Elevated ammonia level Coagulopathy, secondary to liver disease, INR 1.9 History of alcohol abuse History of pancreatitis History of splenic vein thrombosis, previously on Eliquis History of syncope Aspiration pneumonitis Colitis PLAN: Continue current cardiac medications Patient is cleared from a cardiology perspective LifeVest will be obtained for the patient prior to discharge He will follow-up in [address] Rosario Nurse practitioner note has been reviewed by physician. Signing provider agrees with the documented findings, assessment, and plan of care documented by STORE MERCHANDISER as a scribe. Objective - Vital Signs Vital signs: Vital Signs Temp 98.2 F 12/30/24 04:00 Pulse 102 H 12/30/24 04:00 Resp 16 12/30/24 04:00 BP 100/65 12/30/24 04:00 Pulse Ox 99 12/30/24 04:00 FiO2 Intake & Output 12/29/24 12/30/24 12/30/24 18:59 06:59 18:59 Intake Total 520 500 Output Total 400 615 Balance 120 -115 Weight 48.4 kg 49.8 kg Intake: IV 400 20 Invasive Line 4 20 Oral 120 480 Output: Urine 400 615 Other: Voiding Method Urinal Urinal # Voids 1 - Labs CBC & Chem 7: 12/30/24 07:21 12/30/24 07:21 Labs: Abnormal Lab Results - Last 24 Hours (Table) 12/30/24 12/30/24 Range/Units 07:21 07:21 WBC 25.52 H (4.50-10.00) 10*3/uL RBC 2.87 L (4.40-5.60) 10*6/uL Hgb 8.8 L (13.0-17.0) g/dL Hct 26.6 L (39.6-50.0) % Plt Count 446 H (140-440) 10*3/uL Immature Gran # 0.23 H (0.00-0.04) 10*3/uL Neutrophils # 21.64 H (1.80-7.70) 10*3/uL Monocytes # 1.10 H (0.20-1.00) 10*3/uL Chloride 110 H (98-107) mmol/L Carbon Dioxide 20 L (22-30) mmol/L BUN 5 L (9-20) mg/dL Creatinine 0.33 L (0.66-1.25) mg/dL Glucose 108 H (74-99) mg/dL Calcium 6.2 L* (8.4-10.2) mg/dL Total Bilirubin 1.4 H (0.2-1.3) mg/dL AST 103 H (17-59) U/L Alkaline Phosphatase 298 H (38-126) U/L Total Protein 4.4 L (6.3-8.2) g/dL Albumin 1.8 L (3.5-5.0) g/dL Microbiology - Last 24 Hours (Table) 12/24/24 08:18 Blood Culture - Final Blood
[2024-12-30] MEDS: IOPAMIDOL CONTRAST (ORAL USE) VIAL PO PRN (15:07)
[2024-12-30] MEDS: FLUCONAZOLE 100 MG TAB PO ONE (15:08)
--- NOTE | 2024-12-30 16:12 | P.PN ---
Subjective Progress Note Date: 12/29/24 Principal diagnosis: Reason for follow-up is pneumonia/colitis Patient is a 44-year-old male with a past medical history significant for CVA TIA reflux history of recurrent/chronic pancreatitis from alcoholism and hypertension patient was brought into the hospital for lethargy seizure activity did have a cardiac arrest/V. tach requiring shock and subsequent admitted to the hospital. On today's evaluation that is 12/29/2024, patient has been afebrile, patient is breathing comfortably and is currently on 3 L current oxygen , patient denies having any worsening cough or sputum production abdominal pain and no diarrhea has been reported. Patient white count is up to 22.86, creatinine 0.30 Objective - Vital Signs Vital signs: Vital Signs Temp 97.8 F 12/29/24 10:50 Pulse 83 12/29/24 12:05 Resp 16 12/29/24 11:35 BP 85/48 12/29/24 12:05 Pulse Ox 91 L 12/29/24 12:56 FiO2 Intake & Output 12/28/24 12/29/24 12/29/24 18:59 06:59 18:59 Intake Total 650 260 400 Output Total 400 1375 400 Balance 250 -1115 0 Weight 48.4 kg 48.4 kg Intake: IV 250 20 400 Invasive Line 5 20 Piperacillin-Tazobactam 3 100 .375 gm In Sodium Chloride 0.9% 100 ml @ 25 mls/hr IVPB Q8HR VLAD Rx# :[id number] Sodium Chloride 0.9% 1, 150 000 ml @ 75 mls/hr IV . [id number] VLAD Rx#:[id number] Intake, IV Titration 400 Amount Magnesium Sulfate-D5w Pmx 400 1 gm In Dextrose/Water 1 100ml.bag @ 100 mls/hr IVPB Q1H VLAD Rx#: [id number] Oral 240 Output: Urine 400 1375 400 Other: Voiding Method Urinal Urinal Urinal # Voids 1 - Exam GENERAL DESCRIPTION: Middle-age male lying in bed in no distress RESPIRATORY SYSTEM: Unlabored breathing , decreased breath sounds at bases HEART: S1 S2 regular rate and rhythm , ABDOMEN: Soft , no tenderness EXTREMITIES: No edema feet - Labs CBC & Chem 7: 12/30/24 07:21 12/30/24 07:21 Labs: Abnormal Lab Results - Last 24 Hours (Table) 12/29/24 12/29/24 Range/Units 06:20 06:20 WBC 22.86 H (4.50-10.00) 10*3/uL RBC 2.87 L (4.40-5.60) 10*6/uL Hgb 8.6 L (13.0-17.0) g/dL Hct 25.2 L (39.6-50.0) % Immature Gran # 0.21 H (0.00-0.04) 10*3/uL Neutrophils # 19.70 H (1.80-7.70) 10*3/uL Monocytes # 1.12 H (0.20-1.00) 10*3/uL Eosinophils # 0.03 L (0.04-0.35) 10*3/uL Sodium 136 L (137-145) mmol/L Potassium 3.4 L (3.5-5.1) mmol/L Chloride 109 H (98-107) mmol/L Carbon Dioxide 20 L (22-30) mmol/L BUN 3 L (9-20) mg/dL Creatinine 0.30 L (0.66-1.25) mg/dL Glucose 140 H (74-99) mg/dL Calcium 6.4 L* (8.4-10.2) mg/dL Total Bilirubin 1.4 H (0.2-1.3) mg/dL AST 61 H (17-59) U/L Alkaline Phosphatase 291 H (38-126) U/L C-Reactive Protein 5.3 H (<1.0) mg/dL Total Protein 4.4 L (6.3-8.2) g/dL Albumin 1.9 L (3.5-5.0) g/dL Assessment and Plan (1) Sepsis Current Visit: Yes Status: Acute Code(s): A41.9 - SEPSIS, UNSPECIFIED ORGANISM SNOMED Code(s): 97520216 (2) Aspiration pneumonitis Current Visit: Yes Status: Acute Code(s): J69.0 - PNEUMONITIS DUE TO INHALATION OF FOOD AND VOMIT SNOMED Code(s): 502253947 (3) Colitis Current Visit: Yes Status: Acute Code(s): K52.9 - NONINFECTIVE GASTROENTERITIS AND COLITIS, UNSPECIFIED SNOMED Code(s): 40216236 Plan: 1patient presented to hospital with sepsis in this patient who did have tachycardia hypotension elevated white count meeting criteria for SIRS source likely aspiration pneumonitis as the patient did have intractable nausea vomiting before the patient has been brought to the hospital patient also have abnormality on the abdominal pelvis CT concerning for colitis question of infectious etiology need to be ruled out patient did not recall if he has been on antibiotic in the recent past 2-sputum as well as stool studies has not been collected so far 3-patient is afebrile patient white count is elevated oral Diflucan has been added if any further worsening of the white count will need to repeat CT abdominal pelvis for now continue with the Zosyn Dictation was produced using [email or web address] dictation software. please excuse any grammatical, word or spelling errors. Time with Patient: Less than 30
--- NOTE | 2024-12-30 16:13 | P.PN ---
Subjective Progress Note Date: 12/30/24 Principal diagnosis: Reason for follow-up is pneumonia/colitis Patient is a 44-year-old male with a past medical history significant for CVA TIA reflux history of recurrent/chronic pancreatitis from alcoholism and hypertension patient was brought into the hospital for lethargy seizure activity did have a cardiac arrest/V. tach requiring shock and subsequent admitted to the hospital. On today's evaluation that is 12/30/2024, Patient is afebrile this morning patient denies having any worsening chest pain shortness of breath or cough, the patient is currently on room air, patient denies any abdominal pain no diarrhea no nausea no vomiting. Patient white count is up to 25.52, creatinine 0.33 blood and urine has been negative chest x-ray multifocal airspace opacities Objective - Vital Signs Vital signs: Vital Signs Temp 98.1 F 12/30/24 08:00 Pulse 99 12/30/24 12:00 Resp 16 12/30/24 08:00 BP 86/57 12/30/24 12:00 Pulse Ox 88 L 12/30/24 12:00 FiO2 Intake & Output 12/29/24 12/30/24 12/30/24 18:59 06:59 18:59 Intake Total 520 500 700 Output Total 400 615 Balance 120 -115 700 Weight 48.4 kg 49.8 kg Intake: IV 400 20 700 Invasive Line 4 20 Piperacillin-Tazobactam 3 100 .375 gm In Sodium Chloride 0.9% 100 ml @ 25 mls/hr IVPB Q8HR VLAD Rx# :[id number] Sodium Chloride 0.9% 1, 600 000 ml @ 75 mls/hr IV . [id number] VLAD Rx#:[id number] Intake, IV Titration 0 Amount Sodium Chloride 0.9% 1, 0 000 ml In Empty Bag 1 bag @ 1 ML/KG/HR 49.2 mls/hr IV .[id number] VLAD Rx#: [id number] Oral 120 480 Output: Urine 400 615 Other: Voiding Method Urinal Urinal Urinal # Voids 1 - Exam GENERAL DESCRIPTION: Middle-age male lying in bed in no distress RESPIRATORY SYSTEM: Unlabored breathing , decreased breath sounds at bases HEART: S1 S2 regular rate and rhythm , ABDOMEN: Soft , no tenderness EXTREMITIES: No edema feet - Labs CBC & Chem 7: 12/30/24 07:21 12/30/24 07:21 Labs: Abnormal Lab Results - Last 24 Hours (Table) 12/30/24 12/30/24 Range/Units 07:21 07:21 WBC 25.52 H (4.50-10.00) 10*3/uL RBC 2.87 L (4.40-5.60) 10*6/uL Hgb 8.8 L (13.0-17.0) g/dL Hct 26.6 L (39.6-50.0) % Plt Count 446 H (140-440) 10*3/uL Immature Gran # 0.23 H (0.00-0.04) 10*3/uL Neutrophils # 21.64 H (1.80-7.70) 10*3/uL Monocytes # 1.10 H (0.20-1.00) 10*3/uL Chloride 110 H (98-107) mmol/L Carbon Dioxide 20 L (22-30) mmol/L BUN 5 L (9-20) mg/dL Creatinine 0.33 L (0.66-1.25) mg/dL Glucose 108 H (74-99) mg/dL Calcium 6.2 L* (8.4-10.2) mg/dL Total Bilirubin 1.4 H (0.2-1.3) mg/dL AST 103 H (17-59) U/L Alkaline Phosphatase 298 H (38-126) U/L Total Protein 4.4 L (6.3-8.2) g/dL Albumin 1.8 L (3.5-5.0) g/dL Microbiology - Last 24 Hours (Table) 12/24/24 08:18 Blood Culture - Final Blood Assessment and Plan (1) Sepsis Current Visit: Yes Status: Acute Code(s): A41.9 - SEPSIS, UNSPECIFIED ORGANISM SNOMED Code(s): 06327673 (2) Aspiration pneumonitis Current Visit: Yes Status: Acute Code(s): J69.0 - PNEUMONITIS DUE TO INHALATION OF FOOD AND VOMIT SNOMED Code(s): 915960666 (3) Colitis Current Visit: Yes Status: Acute Code(s): K52.9 - NONINFECTIVE GASTROENTERITIS AND COLITIS, UNSPECIFIED SNOMED Code(s): 87451700 Plan: 1patient presented to hospital with sepsis in this patient who did have tachycardia hypotension elevated white count meeting criteria for SIRS source likely aspiration pneumonitis as the patient did have intractable nausea vom iting before the patient has been brought to the hospital patient also have abnormality on the abdominal pelvis CT concerning for colitis question of infectious etiology need to be ruled out patient did not recall if he has been on antibiotic in the recent past 2-sputum as well as stool studies has not been collected so far 3-patient is afebrile patient did have further worsening of the white count recommend obtaining a repeat CT abdominal pelvis to make sure no evidence of any worsening colitis/pericardiac pseudocyst formation for now continue with empiric Zosyn discussed with STATOR CONNECTOR for admitting team Dictation was produced using [employer] dictation software. please excuse any grammatical, word or spelling errors.
--- NOTE | 2024-12-30 17:21 | CT ---
EXAMINATION TYPE: CT abdomen pelvis w con DATE OF EXAM: 12/30/2024 4:52 PM COMPARISON: 12/24/2024 CLINICAL INDICATION: Male, 44 years old with history of Elevated white count, assess for pseudocyst, Elevated WBC TECHNIQUE: Axial images were obtained from above the diaphragm to the pubic rami in the axial plane a t 5 mm thick sections. Reconstructed images are reviewed on the computer in the coronal plane. CONTRAST: 80 mL of Isovue 300. Study performed with Oral Contrast DLP: 635.5 mGycm, Automated exposure control for dose reduction was used. FINDINGS: Limited CT sections are obtained the lung bases. Small bilateral pleural effusions are present.. CT ABDOMEN: Liver: There is moderate fatty infiltration of the liver Spleen: Normal Pancreas: Multiple calcifications are scattered through the pancreas suspicious for chronic pancreati tis no pseudocyst formation evident. No abnormal collections evident. No adjacent inflammatory change s Adrenal glands: The adrenal glands are normal. Gallbladder: There may be some gallbladder wall enhancement. Clinical consideration for cholecystitis is recommended Kidneys: No masses are evident. No hydronephrosis is present. No cysts are present. Delayed images were obtained through the kidneys, which remain unremarkable. Aorta: Vascular calcification is within the aorta. Inferior vena cava: Normal. CT PELVIS: Colitis of the sigmoid colon is not excluded. Clinical correlation recommended. No adjacent inflammat ory changes There are loops of bowel which are incompletely distended or lack oral contrast limiting their evaluation. Appendix: Not identified. Urinary bladder: Normal. Genitourinary structures: The prostate appears normal Osseous structures: No suspicious lytic or sclerotic lesions. IMPRESSION: 1. Moderate fatty infiltration of the liver. 2. Some wall enhancement of the gallbladder is not excluded. Consider cholecystitis. 3. Diffuse thickening through the sigmoid colon. Correlate for underlying colitis. 4. Bilateral developing small pleural effusions [facility], , 12/30/2024 5:18 PM
--- NOTE | 2024-12-30 23:08 | P.PN ---
Subjective Progress Note Date: 12/30/24 This is a pleasant 44-year-old male who was recently admitted after brief cardiac arrest with multiple electrolyte abnormalities being closely monitored. Patient being followed by cardiology and is status post cardiac catheterization recommending maximizing medical management and normal coronary arteries noted. Patient reports to having increasing pain and also generalized weakness although reports will be going home on discharge. Patient did have an elevated white count that had been trending down although is slightly up today with infectious disease following and will repeat CT abdomen for further evaluation. Continue current antibiotics at this time. Case management is following as plan is for LifeVest on discharge. Recommend incentive spirometer as patient is requiring oxygen and may require oxygen on discharge. Will reattempt home oxygen evaluation. Encourage increase activity as tolerated with sitting up out of the bed more frequently. Labs reviewed and white count is 25.52, hemoglobin is 8.8, platelets 446, sodium 137 with a potassium of 3.5, BUN is 5 and creatinine 0.33. Calcium is slightly low at 6.2, total bili is 1.4. Review of systems: Constitutional: No reports of fatigue, fever, or chills Cardiovascular: No reports of chest pain or palpitations Respiratory: No reports of shortness of breath or cough GI: No reports of nausea, no reports of vomiting, having loose stools : No reports of dysuria or retention Neurovascular: reports of generalized weakness, reports back pain All medications have been reviewed Active Medications Hydrocodone Bitart/Acetaminophen (Hydrocodone/Apap 5-325mg 1 Each Tab) 1 each PO Q6HR PRN PRN Reason: Pain Last Admin: 12/29/24 17:34 Dose: 1 each Albuterol/Ipratropium (Ipratropium-Albuterol 3 Ml Neb) 3 ml INHALATION RT-QID PRN PRN Reason: Shortness Of Breath Or Wheezing Last Admin: 12/29/24 16:29 Dose: 3 ml Alprazolam (Alprazolam 0.25 Mg Tab) 0.25 mg PO Q6HR PRN PRN Reason: Mild Anxiety Last Admin: 12/28/24 23:03 Dose: 0.25 mg Alprazolam (Alprazolam 0.5 Mg Tab) 0.5 mg PO Q6HR PRN PRN Reason: Moderate Anxiety Last Admin: 12/30/24 15:08 Dose: 0.5 mg Amiodarone HCl (Amiodarone 200 Mg Tab) 200 mg PO DAILY [facility] Last Admin: 12/30/24 09:38 Dose: 200 mg Lipase/Protease/Amylase (Lipase 20,000/Protease 63,000/Amylase 84,000) 5 each PO TID-W/MEALS [facility] Last Admin: 12/30/24 17:38 Dose: 5 each Fluconazole (Fluconazole 100 Mg Tab) 100 mg PO DAILY [facility]; Protocol Heparin Sodium (Porcine) (Heparin Sodium,Porcine 5,000 Unit/Ml 1 Ml Vial) 5,000 unit SQ Q8HR [facility] Last Admin: 12/30/24 17:38 Dose: 5,000 unit Hydromorphone HCl (Hydromorphone 0.5 Mg/0.5 Ml Syringe) 0.5 mg IVP Q4HR PRN PRN Reason: Pain Last Admin: 12/30/24 21:56 Dose: 0.5 mg Sodium Chloride (Saline 0.9%) 1,000 mls @ 75 mls/hr IV .[id number] [facility] Last Admin: 12/30/24 17:38 Dose: 75 mls/hr Piperacillin Sod/Tazobactam (Sod 3.375 gm/ Sodium Chloride) 100 mls @ 25 mls/hr IVPB Q8HR [facility]; Protocol Last Admin: 12/30/24 17:37 Dose: 25 mls/hr Sodium Chloride 1,000 ml/ IV (Solution) 1,000 mls @ 49.2 mls/hr IV .[id number] [facility] Last Admin: 12/30/24 15:09 Dose: Not Given Ketorolac Tromethamine (Ketorolac 15 Mg/Ml 1 Ml Vial) 15 mg IVP Q6HR PRN PRN Reason: Pain Control Stop: 12/31/24 18:24 Last Admin: 12/30/24 20:19 Dose: 15 mg Lorazepam (Lorazepam 1 Mg/0.5 Ml Vial) 1 mg IV Q1HR PRN PRN Reason: CIWA 10 to 15 Last Admin: 12/28/24 14:50 Dose: 1 mg Lorazepam (Lorazepam 1 Mg/0.5 Ml Vial) 1 mg IV Q2HR PRN PRN Reason: CIWA 8 or 9 Last Admin: 12/29/24 04:15 Dose: 1 mg Metoprolol Tartrate (Metoprolol Tartrate 25 Mg Tab) 25 mg PO BID [facility] Last Admin: 12/30/24 20:19 Dose: 25 mg Midodrine (Midodrine 5 Mg Tab) 5 mg PO AC-TID [facility] Last Admin: 12/30/24 16:07 Dose: 5 mg Miscellaneous Information (Magnesium Replacement Protocol 1 Each Misc) 1 each MISCELLANE DAILY PRN; Protocol PRN Reason: Per Protocol Miscellaneous Information (Rx Info: Iv Contrast Was Given 1 Each Misc) 1 each MISCELLANE DAILY PRN PRN Reason: Per Protocol Stop: 12/31/24 11:02 Naloxone HCl (Naloxone 0.4 Mg/Ml 1 Ml Vial) 0.2 mg IV Q2M PRN PRN Reason: Opioid Reversal Nicotine (Nicotine 21mg/24hr Patch) 1 patch TRANSDERM DAILY [facility] Last Admin: 12/30/24 15:08 Dose: 1 patch Nitroglycerin (Nitroglycerin Sl Tabs 0.4 Mg Tab) 0.4 mg SUBLINGUAL Q5M PRN PRN Reason: Chest Pain Pantoprazole Sodium (Pantoprazole 40 Mg Tablet) 40 mg PO DAILY [facility] Last Admin: 12/30/24 09:38 Dose: 40 mg Pregabalin (Pregabalin 100 Mg Cap) 200 mg PO TID [facility] Last Admin: 12/30/24 20:19 Dose: 200 mg Simethicone (Simethicone 80 Mg Chewable) 80 mg PO QID PRN PRN Reason: Bloating PHYSICAL EXAMINATION: GENERAL: The patient is alert and oriented x4, Well developed, elderly appearing, thin built, cachectic, chronically ill-appearing HEENT: Pupils are round and equally reacting to light. EOMI. no scleral icterus. No conjunctival pallor. Normocephalic, atraumatic. No pharyngeal erythema. No thyromegaly. CARDIOVASCULAR: S1 and S2 muffled PULMONARY: diminished breath sounds bilaterally with no wheezing, coarse rhonchi noted. ABDOMEN: soft. Nontender on exam. Thin non-distended, normoactive bowel sounds. No palpable organomegaly. MUSCULOSKELETAL: No joint swelling or deformity. EXTREMITIES: No cyanosis, clubbing, or pedal edema. NEUROLOGICAL: Gross neurological examination did not reveal any focal deficits. Diffuse weakness SKIN: No rashes. Assessment: Cardiac arrest, possibly secondary to ventricular tachycardia secondary to multiple electrolyte abnormalities Severe hypokalemia, hypomagnesemia, hypocalcemia, improving after replacement History of EtOH Nonischemic cardiomyopathy possible Takotsubo, EF was 20 to 25%, repeat is 30-35 Possible acute colitis as noted on imaging Diabetes mellitus, type II, uncontrolled with hyperglycemia History of pancreatitis Tachycardia Anemia, chronic Concerns of possible right lower lobe pneumonia, possibly aspiration History of splenic vein thrombosis, was on Eliquis Hepatic encephalopathy Moderate protein calorie malnutrition with a BMI of 17.7 GI prophylaxis DVT prophylaxis Full code Plan: Recommend to continue with current medications and management with multiple consultations following. Infectious disease following as white count is trending up and patient is maintained on antibiotics and will continue. Recommend repeat CT abdomen as patient's white count is elevated and continues to have urinary retention as well. Cariology following and patient is status post catheterization recommending maximizing medical management and case management following working on obtaining a LifeVest Continue monitoring Accu-Cheks AC and at bedtime and adjust accordingly Follow-up on repeat labs and replace electrolytes per protocol. The impression and plan of care has been dictated by Ana Duggan, nurse practitioner as directed. Dr. MABRY I have performed a history and examination and MDM of this patient, discussed the same with the dictator, and agree with the dictator's assessment and plan as written ,documented as a scribe. Based on total visit time, I have performed more than 50% of the visit. Any additional findings or plans will be noted. Objective - Vital Signs Vital signs: Vital Signs Temp 98.1 F 12/30/24 08:00 Pulse 99 12/30/24 12:00 Resp 16 12/30/24 08:00 BP 86/57 12/30/24 12:00 Pulse Ox 88 L 12/30/24 12:00 FiO2 Intake & Output 12/29/24 12/30/24 12/30/24 18:59 06:59 18:59 Intake Total 520 500 700 Output Total 400 615 Balance 120 -115 700 Weight 48.4 kg 49.8 kg Intake: IV 400 20 700 Invasive Line 4 20 Piperacillin-Tazobactam 3 100 .375 gm In Sodium Chloride 0.9% 100 ml @ 25 mls/hr IVPB Q8HR [facility] Rx# :[id number] Sodium Chloride 0.9% 1, 600 000 ml @ 75 mls/hr IV . [id number] [facility] Rx#:[id number] Intake, IV Titration 0 Amount Sodium Chloride 0.9% 1, 0 000 ml In Empty Bag 1 bag @ 1 ML/KG/HR 49.2 mls/hr IV .[id number] [facility] Rx#: [id number] Oral 120 480 Output: Urine 400 615 Other: Voiding Method Urinal Urinal Urinal # Voids 1 - Labs CBC & Chem 7: 12/30/24 07:21 12/30/24 07:21 Labs: Abnormal Lab Results - Last 24 Hours (Table) 12/30/24 12/30/24 Range/Units 07:21 07:21 WBC 25.52 H (4.50-10.00) 10*3/uL RBC 2.87 L (4.40-5.60) 10*6/uL Hgb 8.8 L (13.0-17.0) g/dL Hct 26.6 L (39.6-50.0) % Plt Count 446 H (140-440) 10*3/uL Immature Gran # 0.23 H (0.00-0.04) 10*3/uL Neutrophils # 21.64 H (1.80-7.70) 10*3/uL Monocytes # 1.10 H (0.20-1.00) 10*3/uL Chloride 110 H (98-107) mmol/L Carbon Dioxide 20 L (22-30) mmol/L BUN 5 L (9-20) mg/dL Creatinine 0.33 L (0.66-1.25) mg/dL Glucose 108 H (74-99) mg/dL Calcium 6.2 L* (8.4-10.2) mg/dL Total Bilirubin 1.4 H (0.2-1.3) mg/dL AST 103 H (17-59) U/L Alkaline Phosphatase 298 H (38-126) U/L Total Protein 4.4 L (6.3-8.2) g/dL Albumin 1.8 L (3.5-5.0) g/dL Microbiology - Last 24 Hours (Table) 12/24/24 08:18 Blood Culture - Final Blood
[2024-12-31 06:46] LABS: Basophils # (A) 0.03 10*3/uL (0.00-0.10); Basophils % (A) 0.2 %; Eosinophils # (A) 0.11 10*3/uL (0.04-0.35); Eosinophils % (A) 0.6 %; HCT 26.9 % (39.6-50.0); HGB 8.6 g/dL (13.0-17.0); Lymphocytes # (A) 1.72 10*3/uL (0.90-5.00); Lymphocytes % (A) 10.0 %; MCH 29.5 pg (27.0-32.0); MCHC 32.0 g/dL (32.0-37.0); MCV 92.1 fL (80.0-97.0); Monocytes # (A) 0.71 10*3/uL (0.20-1.00); Monocytes % (A) 4.1 %; Neutrophils # (A) 14.48 10*3/uL (1.80-7.70); Neutrophils % (A) 84.2 %; Platelet Count 477 10*3/uL (140-440); RBC 2.92 10*6/uL (4.40-5.60); RDW 20.0 % (11.5-14.5); WBC 17.20 10*3/uL (4.50-10.00)
[2024-12-31 07:18] LABS: ALT 31 U/L (4-49); AST 59 U/L (17-59); African American GFR (CKD) >90 (>60 ml/min/1.73 sqM); Albumin 1.9 g/dL (3.5-5.0); Alkaline Phosphatase 322 U/L (38-126); Anion Gap 5 mmol/L; Blood Urea Nitrogen 3 mg/dL (9-20); Calcium 6.7 mg/dL (8.4-10.2); Carbon Dioxide 24 mmol/L (22-30); Chloride 106 mmol/L (98-107); Glucose 138 mg/dL (74-99); Magnesium 1.2 mg/dL (1.6-2.3); Non-African American GFR(CKD) >90 (>60 ml/min/1.73 sqM); Potassium 3.2 mmol/L (3.5-5.1); Sodium 135 mmol/L (137-145); Total Protein 4.5 g/dL (6.3-8.2)
--- NOTE | 2024-12-31 08:39 | US ---
EXAMINATION TYPE: US abdomen limited DATE OF EXAM: 12/31/2024 COMPARISON: CT CLINICAL INDICATION: Male, 44 years old with history of abnormal CT ?misty; stage 4 pancreatic ca, ab n gb on CT, recent [place] TECHNIQUE: Grayscale and color Doppler imaging of the right upper quadrant was performed. FINDINGS: EXAM MEASUREMENTS: Liver Length: 20.2 cm Gallbladder Wall: 0.5 cm CBD: 0.7 cm Right Kidney: 12.2 x 5.0 x 4.1 cm Pancreas: limited views Liver: enlarged, difficult to penetrate Gallbladder: thickened wall with fluid seen Evidence for sonographic Zurita's sign: no CBD: appears to have 2 stones within CBD at pancreatic head Right Kidney: wnl IMPRESSION: 1. Thickened gallbladder wall, however on CT and ultrasound imaging the gallbladder is nondistended. Correlate for clinical signs of cholecystitis. Consider HIDA scan. 2. Severe Hepatic steatosis. [facility], , 12/31/2024 8:37 AM
[2024-12-31] MEDS: FLUCONAZOLE 100 MG TAB PO SCH (08:57)
--- NOTE | 2024-12-31 13:41 | P.PN ---
Subjective Progress Note Date: 12/31/24 HISTORY OF PRESENT ILLNESS: This is a 44-year-old male with a past medical history significant for syncope, pancreatitis, splenic vein thrombosis, and alcohol abuse. 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 We have been asked to see the patient in consultation for cardiac arrest. Apparently the patient was having altered mental status at home and EMS was called. Patient was found to be in ventric ular tachycardia and CPR was started. 1 shock was delivered. The patient then had ROSC. Apparently no medications were given. The patient is seen and examined at the bedside in the emergency room. Patient is awake and alert. He currently denies any chest pain or pressure. Denies any shortness of breath. Patient does not remember any of the episodes that happened this morning. He just remembers waking up in the ambulance. He states he has not had any alcohol to drink in 2 to 3 days. He does state he has a history of alcohol abuse and drinks twisted teas. DIAGNOSTICS: - EKG reveals sinus tachycardia with no signs of acute ischemia. - Chest xray negative for acute process. - Laboratory data: WBC 13.81. Hemoglobin 10.7. Platelet count 356. Sodium 135. Potassium 2.3. BUN 5. Creatinine 0.31. Calcium 4.1. Magnesium 0.5. AST 223. ALT 55. Troponin 0.022. proBNP 329. - Current home cardiac medication list is not updated at the time of this dictation - No previous echocardiogram, stress test, or cardiac catheterization available in EMR for review 12/27/2024 Patient examined this morning at the bedside. Patient currently denies any chest pain or pressure. He denies shortness of breath. Vital signs are stable. Echocardiogram completed revealing ejection fraction 20 to 25%, anterior apical, apical lateral and apical akinesis, possible Takotsubo, mild aortic and mitral regurgitation, mild tricuspid regurgitation 12/28/2024 Patient examined this morning at the bedside. Patient without complaints of chest pain or pressure. He denies shortness of breath. Repeat limited echo performed revealed ejection fraction 30 to 35%, apex akinetic 12/29/2024 Patient seen and examined. Patient denies chest pain or chest pressure. He denies shortness of breath. He is scheduled for cardiac catheterization today which will be done by Dr. Rosario. Blood pressure 98/67, heart rate 109, pulse ox 96% on room air. Repeat blood work reveals WBC 22.8, hemoglobin 8.6. Sodium 136, potassium 3.4, BUN 3 and creatinine 0.3. Calcium 6.4. AST 61, alkaline phosphatase 291. Repeat chest x-ray reveals multifocal airspace opacities concerning for pneumonia 12/30/2024 Patient seen and examined. Yesterday, he underwent cardiac catheterization with Dr. Rosario which revealed normal coronary arteries. Cardiomyopathy is nonischemic in etiology. Repeat chest x-ray reveals multifocal airspace opacities concerning for pneumonia. Blood pressure 100/65, heart rate 102, pulse ox 99% on room air. 12/31/2024 Patient seen and examined. LifeVest is in his room. Home patient does complain of soreness in his chest from CPR. He states he got up to the bathroom today and was feeling dizzy. Blood pressure 110/73, heart rate 105, pulse ox 88% on 6 L high flow nasal cannula. Patient is followed by infectious disease for possible colitis Abdominal ultrasound revealed thickened gallbladder wall. Correlate for signs of cholecystitis. Consider HIDA. Severe hepatic steatosis. CT abdomen pelvis: Moderate fatty infiltration of the liver. Consider cholecystitis. Correlate for underlying colitis. Bilateral small pleural effusions. PHYSICAL EXAM: VITAL SIGNS: Reviewed. GENERAL: Well-developed in no acute distress. HEENT: Head is normocephalic. Pupils are equal, round. Sclerae anicteric. Mucous membranes of the mouth are moist. Neck supple. No JVD or thyromegaly LUNGS: Respirations even and unlabored. Lungs essentially clear to auscultation bilaterally. HEART: Regular rate and rhythm. S1 and S2 heard. ABDOMEN: Soft. Nondistended. Nontender. EXTREMITIES: No clubbing or cyanosis. Peripheral pulses intact. No lower extremity edema NEUROLOGIC: Awake and alert. Oriented x 3. ASSESSMENT: V tach cardiac arrest Cardiomyopathy, EF 20 to 25%, nonischemic, possible Takotsubo, repeat echo 30- 35% Hypokalemia Hypomagnesemia Hypocalcemia Transaminitis Elevated ammonia level Coagulopathy, secondary to liver disease, INR 1.9 History of alcohol abuse History of pancreatitis History of splenic vein thrombosis, previously on Eliquis History of syncope Aspiration pneumonitis Colitis PLAN: Continue current cardiac medications Patient is cleared from a cardiology perspective LifeVest has been obtained for the patient He will follow-up in [address] Rosario Nurse practitioner note has been reviewed by physician. Signing provider agrees with the documented findings, assessment, and plan of care documented by DOWELING MACHINE OPERATOR as a scribe. Objective - Vital Signs Vital signs: Vital Signs Temp 98.2 F 12/31/24 04:00 Pulse 96 12/31/24 04:00 Resp 19 12/31/24 04:00 BP 138/79 12/31/24 04:00 Pulse Ox 94 L 12/31/24 04:00 FiO2 Intake & Output 12/30/24 12/31/24 12/31/24 18:59 06:59 18:59 Intake Total 775 20 Output Total 300 300 Balance 475 -280 Weight 49.8 kg Intake: IV 775 20 Invasive Line 4 20 Piperacillin-Tazobactam 3 100 .375 gm In Sodium Chloride 0.9% 100 ml @ 25 mls/hr IVPB Q8HR [facility] Rx# :[id number] Sodium Chloride 0.9% 1, 675 000 ml @ 75 mls/hr IV . [id number] [facility] Rx#:[id number] Intake, IV Titration 0 Amount Sodium Chloride 0.9% 1, 0 000 ml In Empty Bag 1 bag @ 1 ML/KG/HR 49.2 mls/hr IV .[id number] [facility] Rx#: [id number] Output: Urine 300 300 Other: Voiding Method Urinal Urinal # Voids 1 - Labs CBC & Chem 7: 12/31/24 06:23 12/31/24 06:23 Labs: Abnormal Lab Results - Last 24 Hours (Table) 12/30/24 12/31/24 12/31/24 Range/Units 07:21 06:23 06:23 WBC 17.20 H (4.50-10.00) 10*3/uL RBC 2.92 L (4.40-5.60) 10*6/uL Hgb 8.6 L (13.0-17.0) g/dL Hct 26.9 L (39.6-50.0) % Plt Count 477 H (140-440) 10*3/uL Immature Gran # 0.15 H (0.00-0.04) 10*3/uL Neutrophils # 14.48 H (1.80-7.70) 10*3/uL Sodium 135 L (137-145) mmol/L Potassium 3.2 L (3.5-5.1) mmol/L Chloride 110 H (98-107) mmol/L Carbon Dioxide 20 L (22-30) mmol/L BUN 5 L 3 L (9-20) mg/dL Creatinine 0.33 L 0.34 L (0.66-1.25) mg/dL Glucose 108 H 138 H (74-99) mg/dL Calcium 6.2 L* 6.7 L (8.4-10.2) mg/dL Magnesium 1.2 L (1.6-2.3) mg/dL Total Bilirubin 1.4 H (0.2-1.3) mg/dL AST 103 H (17-59) U/L Alkaline Phosphatase 298 H 322 H (38-126) U/L Total Protein 4.4 L 4.5 L (6.3-8.2) g/dL Albumin 1.8 L 1.9 L (3.5-5.0) g/dL
[2024-12-31] MEDS ORDERED: Magnesium Replacement Protocol 1 EACH MISC MISCELLANE PRN (14:43)
[2024-12-31] MEDS ORDERED: Potassium Replacement Protocol 1 EACH MISC MISCELLANE PRN (14:43)
[2024-12-31] MEDS: MAGNESIUM SULFATE-D5W PMX 1 GM in DEXTROSE/WATER 1 100ML.BAG IVPB SCH (15:22)
[2024-12-31] MEDS: POTASSIUM CHLORIDE ER 20 MEQ TAB.ER PO SCH (15:23)
[2024-12-31] MEDS: metroNIDAZOLE-NS PMX 500 MG in SALINE 1 100ML.BAG IVPB SCH (15:23)
[2024-12-31] MEDS: IPRATROPIUM-ALBUTEROL 3 ML NEB INHALATION SCH (21:44)
--- NOTE | 2024-12-31 22:54 | P.PN ---
Subjective Progress Note Date: 12/31/24 Principal diagnosis: Reason for follow-up is pneumonia/colitis Patient is a 44-year-old male with a past medical history significant for CVA TIA reflux history of recurrent/chronic pancreatitis from alcoholism and hypertension patient was brought into the hospital for lethargy seizure activity did have a cardiac arrest/V. tach requiring shock and subsequent admitted to the hospital. On today's evaluation that is 12/31/2024,the patient denies any fever or any chills, patient is breathing comfortably on 6 L nasal oxygen the patient denies chest pain shortness of breath and no significant cough, patient denies abdominal pain however complaining of some nausea but no vomiting or diarrhea. Patient white count is down to 17.20 creatinine 0.34 Objective - Vital Signs Vital signs: Vital Signs Temp 97.7 F 12/31/24 08:45 Pulse 105 H 12/31/24 08:45 Resp 19 12/31/24 04:00 BP 110/73 12/31/24 08:45 Pulse Ox 88 L 12/31/24 08:45 FiO2 Intake & Output 12/30/24 12/31/24 12/31/24 18:59 06:59 18:59 Intake Total 775 20 10 Output Total 300 300 Balance 475 -280 10 Weight 49.8 kg Intake: IV 775 20 10 Invasive Line 4 20 10 Piperacillin-Tazobactam 3 100 .375 gm In Sodium Chloride 0.9% 100 ml @ 25 mls/hr IVPB Q8HR [facility] Rx# :[id number] Sodium Chloride 0.9% 1, 675 000 ml @ 75 mls/hr IV . [id number] [facility] Rx#:[id number] Intake, IV Titration 0 Amount Sodium Chloride 0.9% 1, 0 000 ml In Empty Bag 1 bag @ 1 ML/KG/HR 49.2 mls/hr IV .[id number] [facility] Rx#: [id number] Output: Urine 300 300 Other: Voiding Method Urinal Urinal # Voids 1 - Exam GENERAL DESCRIPTION: Middle-age male lying in bed in no distress RESPIRATORY SYSTEM: Unlabored breathing , decreased breath sounds at bases HEART: S1 S2 regular rate and rhythm , ABDOMEN: Soft , no tenderness EXTREMITIES: No edema feet - Labs CBC & Chem 7: 12/31/24 06:23 12/31/24 06:23 Labs: Abnormal Lab Results - Last 24 Hours (Table) 12/31/24 12/31/24 Range/Units 06:23 06:23 WBC 17.20 H (4.50-10.00) 10*3/uL RBC 2.92 L (4.40-5.60) 10*6/uL Hgb 8.6 L (13.0-17.0) g/dL Hct 26.9 L (39.6-50.0) % Plt Count 477 H (140-440) 10*3/uL Immature Gran # 0.15 H (0.00-0.04) 10*3/uL Neutrophils # 14.48 H (1.80-7.70) 10*3/uL Sodium 135 L (137-145) mmol/L Potassium 3.2 L (3.5-5.1) mmol/L BUN 3 L (9-20) mg/dL Creatinine 0.34 L (0.66-1.25) mg/dL Glucose 138 H (74-99) mg/dL Calcium 6.7 L (8.4-10.2) mg/dL Magnesium 1.2 L (1.6-2.3) mg/dL Alkaline Phosphatase 322 H (38-126) U/L Total Protein 4.5 L (6.3-8.2) g/dL Albumin 1.9 L (3.5-5.0) g/dL Assessment and Plan (1) Sepsis Current Visit: Yes Status: Acute Code(s): A41.9 - SEPSIS, UNSPECIFIED ORGANISM SNOMED Code(s): 06368675 (2) Aspiration pneumonitis Current Visit: Yes Status: Acute Code(s): J69.0 - PNEUMONITIS DUE TO INHALATION OF FOOD AND VOMIT SNOMED Code(s): 634339406 (3) Colitis Current Visit: Yes Status: Acute Code(s): K52.9 - NONINFECTIVE GASTROENTE RITIS AND COLITIS, UNSPECIFIED SNOMED Code(s): 65294667 Plan: 1patient presented to hospital with sepsis in this patient who did have tachyca rdia hypotension elevated white count meeting criteria for SIRS source likely aspiration pneumonitis as the patient did have intractable nausea vomiting before the patient has been brought to the hospital patient also have abnormality on the abdominal pelvis CT concerning for colitis question of inf ectious etiology need to be ruled out patient did not recall if he has been on antibiotic in the recent past 2-sputum as well as stool studies has not been collected so far 3-patient is afebrile white count is improving patient CT as well as ultrasound has been suspicious for cholecystitis will order a HIDA scan and patient benefit from general surgery evaluation continue with Joaquinan Dictation was produced using [employer] dictation software. please excuse any grammatical, word or spelling errors.
[2024-12-31] MEDS: PIPERACILLIN-TAZOBACTAM 3.375 GM in SODIUM CHLORIDE 0.9% 100 ML IVPB SCH (23:14)
[2025-01-01 06:13] LABS: Basophils # (A) 0.02 10*3/uL (0.00-0.10); Basophils % (A) 0.1 %; Eosinophils # (A) 0.14 10*3/uL (0.04-0.35); Eosinophils % (A) 0.7 %; HCT 26.1 % (39.6-50.0); HGB 8.2 g/dL (13.0-17.0); Lymphocytes # (A) 1.43 10*3/uL (0.90-5.00); Lymphocytes % (A) 7.5 %; MCH 29.1 pg (27.0-32.0); MCHC 31.4 g/dL (32.0-37.0); MCV 92.6 fL (80.0-97.0); Monocytes # (A) 0.68 10*3/uL (0.20-1.00); Monocytes % (A) 3.5 %; Neutrophils # (A) 16.75 10*3/uL (1.80-7.70); Neutrophils % (A) 87.5 %; Platelet Count 459 10*3/uL (140-440); RBC 2.82 10*6/uL (4.40-5.60); RDW 20.7 % (11.5-14.5); WBC 19.16 10*3/uL (4.50-10.00)
--- NOTE | 2025-01-01 06:25 | P.PN ---
Subjective Progress Note Date: 12/31/24 This is a pleasant 44-year-old male who was recently admitted after brief cardiac arrest with multiple electrolyte abnormalities being closely monitored. Patient being followed by cardiology and is status post cardiac catheterization recommending maximizing medical management and normal coronary arteries noted. Patient reports to having increasing pain and also generalized weakness although reports will be going home on discharge. Patient did have an elevated white count that had been trending down although is slightly up today with infectious disease following and will repeat CT abdomen for further evaluation. Continue current antibiotics at this time. Case management is following as plan is for LifeVest on discharge. Recommend incentive spirometer as patient is requiring oxygen and may require oxygen on discharge. Will reattempt home oxygen evaluation. Encourage increase activity as tolerated with sitting up out of the bed more frequently. Labs reviewed and white count is 25.52, hemoglobin is 8.8, platelets 446, sodium 137 with a potassium of 3.5, BUN is 5 and creatinine 0.33. Calcium is slightly low at 6.2, total bili is 1.4. 12/31/2024 Patient is seen in follow-up with multiple consultations following. White count was elevated although slightly improving with infectious disease following we will continue current regimen at this time. Patient continues to report short ness of breath and generalized pain and continues to require oxygen. Will need home O2 assessment. Patient underwent CT abdomen and will consult general surgery for evaluation. Encouraged increased activity as tolerated with sitting up more frequently in the chair. Review of systems: Constitutional: No reports of fatigue, fever, or chills Cardiovascular: No reports of chest pain or palpitations Respiratory: No reports of shortness of breath or cough GI: No reports of nausea, no reports of vomiting, having loose stools : No reports of dysuria or retention Neurovascular: reports of generalized weakness, reports back pain All medications have been reviewed PHYSICAL EXAMINATION: GENERAL: The patient is alert and oriented x3, Well developed, elderly appearing, thin built, cachectic, chronically ill-appearing HEENT: Pupils are round and equally reacting to light. EOMI. no scleral icterus. No conjunctival pallor. Normocephalic, atraumatic. No pharyngeal erythema. No thyromegaly. CARDIOVASCULAR: S1 and S2 muffled PULMONARY: diminished breath sounds bilaterally with no wheezing, coarse rhonchi noted. ABDOMEN: soft. Nontender on exam. Thin non-distended, normoactive bowel sounds. No palpable organomegaly. MUSCULOSKELETAL: No joint swelling or deformity. EXTREMITIES: No cyanosis, clubbing, or pedal edema. NEUROLOGICAL: Gross neurological examination did not reveal any focal deficits. Diffuse weakness SKIN: No rashes. Assessment: Cardiac arrest, possibly secondary to ventricular tachycardia secondary to multiple electrolyte abnormalities Severe hypokalemia, hypomagnesemia, hypocalcemia, improving after replacement History of EtOH Nonischemic cardiomyopathy possible Takotsubo, EF was 20 to 25%, repeat is 30- 35, awaiting the LifeVest Possible acute colitis as noted on imaging Diabetes mellitus, type II, uncontrolled with hyperglycemia History of pancreatitis Tachycardia Anemia, chronic Concerns of possible right lower lobe pneumonia, possibly aspiration History of splenic vein thrombosis, was on Eliquis Hepatic encephalopathy Moderate protein calorie malnutrition with a BMI of 17.7 GI prophylaxis DVT prophylaxis Full code Plan: Recommend to continue with current medications and management with multiple consultations following. Infectious disease following as white count is trending up and patient is maintained on antibiotics and will continue. Patient underwent repeat CT abdomen as patient's white count is elevated and continues to have urinary retention as well. Will consult general surgery for input and recommendations. Cariology following and patient is status post catheterization recommending maximizing medical management and case management following working on obtaining a LifeVest Continue monitoring Accu-Cheks AC and at bedtime and adjust accordingly Follow-up on repeat labs and replace electrolytes per protocol. Recommend PT/OT therapy evaluation as patient reports will be going home although has had cardiac arrest with prolonged hospitalization, patient may likely benefit from ECF Due to multiple complex medical issues, overall prognosis is guarded The impression and plan of care has been dictated by Ana Duggan, nurse practitioner as directed. Dr. Germain MD I have performed a history and examination and MDM of this patient, discussed the same with the dictator, and agree with the dictator's assessment and plan as written ,documented as a scribe. Based on total visit time, I have performed more than 50% of the visit. Any additional findings or plans will be noted. Objective - Vital Signs Vital signs: Vital Signs Temp 97.7 F 01/01/25 04:00 Pulse 104 H 01/01/25 04:00 Resp 18 01/01/25 04:00 BP 120/82 01/01/25 04:00 Pulse Ox 93 L 01/01/25 04:00 FiO2 Intake & Output 12/31/24 12/31/24 01/01/25 06:59 18:59 06:59 Intake Total 20 20 222 Output Total 300 400 Balance -280 -380 222 Weight 49.8 kg 53.2 kg Intake: IV 20 20 Invasive Line 4 20 20 Oral 222 Output: Urine 300 400 Other: Voiding Method Urinal Urinal Urinal # Voids 1 - Labs CBC & Chem 7: 01/01/25 05:52 12/31/24 06:23 Labs: Abnormal Lab Results - Last 24 Hours (Table) 12/31/24 12/31/24 12/31/24 Range/Units 06:23 06:23 06:23 WBC 17.20 H (4.50-10.00) 10*3/uL RBC 2.92 L (4.40-5.60) 10*6/uL Hgb 8.6 L (13.0-17.0) g/dL Hct 26.9 L (39.6-50.0) % MCHC (32.0-37.0) g/dL Plt Count 477 H (140-440) 10*3/uL MPV (9.5-12.2) fL Immature Gran # 0.15 H (0.00-0.04) 10*3/uL Neutrophils # 14.48 H (1.80-7.70) 10*3/uL ESR 47 H (0-15) mm/Hr Sodium 135 L (137-145) mmol/L Potassium 3.2 L (3.5-5.1) mmol/L BUN 3 L (9-20) mg/dL Creatinine 0.34 L (0.66-1.25) mg/dL Glucose 138 H (74-99) mg/dL Calcium 6.7 L (8.4-10.2) mg/dL Magnesium 1.2 L (1.6-2.3) mg/dL Alkaline Phosphatase 322 H (38-126) U/L C-Reactive Protein (<1.0) mg/dL Total Protein 4.5 L (6.3-8.2) g/dL Albumin 1.9 L (3.5-5.0) g/dL 12/31/24 01/01/25 Range/Units 06:23 05:52 WBC 19.16 H (4.50-10.00) 10*3/uL RBC 2.82 L (4.40-5.60) 10*6/uL Hgb 8.2 L (13.0-17.0) g/dL Hct 26.1 L (39.6-50.0) % MCHC 31.4 L (32.0-37.0) g/dL Plt Count 459 H (140-440) 10*3/uL MPV 9.4 L (9.5-12.2) fL Immature Gran # 0.14 H (0.00-0.04) 10*3/uL Neutrophils # 16.75 H (1.80-7.70) 10*3/uL ESR (0-15) mm/Hr Sodium (137-145) mmol/L Potassium (3.5-5.1) mmol/L BUN (9-20) mg/dL Creatinine (0.66-1.25) mg/dL Glucose (74-99) mg/dL Calcium (8.4-10.2) mg/dL Magnesium (1.6-2.3) mg/dL Alkaline Phosphatase (38-126) U/L C-Reactive Protein 17.9 H (<1.0) mg/dL Total Protein (6.3-8.2) g/dL Albumin (3.5-5.0) g/dL Microbiology - Last 24 Hours (Table) 12/31/24 09:04 Gram Stain - Preliminary Sputum
[2025-01-01 06:34] LABS: ALT 24 U/L (4-49); AST 48 U/L (17-59); African American GFR (CKD) >90 (>60 ml/min/1.73 sqM); Albumin 1.8 g/dL (3.5-5.0); Alkaline Phosphatase 288 U/L (38-126); Anion Gap 6 mmol/L; Blood Urea Nitrogen 3 mg/dL (9-20); Calcium 6.8 mg/dL (8.4-10.2); Carbon Dioxide 22 mmol/L (22-30); Chloride 106 mmol/L (98-107); Glucose 131 mg/dL (74-99); Magnesium 1.9 mg/dL (1.6-2.3); Non-African American GFR(CKD) >90 (>60 ml/min/1.73 sqM); Potassium 3.5 mmol/L (3.5-5.1); Sodium 134 mmol/L (137-145); Total Protein 4.3 g/dL (6.3-8.2)
[2025-01-01] MEDS: FUROSEMIDE 10 MG/ML 4 ML VIAL IV SCH (08:59)
[2025-01-01 11:24] LABS: Glucose,Whole Blood 172 mg/dL (70-110)
--- NOTE | 2025-01-01 12:51 | P.PN ---
Subjective Progress Note Date: 01/01/25 HISTORY OF PRESENT ILLNESS: This is a 44-year-old male with a past medical history significant for syncope, pancreatitis, splenic vein thrombosis, and alcohol abuse. 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 We have been asked to see the patient in consultation for cardiac arrest. Apparently the patient was having altered mental status at home and EMS was called. Patient was found to be in ventric ular tachycardia and CPR was started. 1 shock was delivered. The patient then had ROSC. Apparently no medications were given. The patient is seen and examined at the bedside in the emergency room. Patient is awake and alert. He currently denies any chest pain or pressure. Denies any shortness of breath. Patient does not remember any of the episodes that happened this morning. He just remembers waking up in the ambulance. He states he has not had any alcohol to drink in 2 to 3 days. He does state he has a history of alcohol abuse and drinks twisted teas. DIAGNOSTICS: - EKG reveals sinus tachycardia with no signs of acute ischemia. - Chest xray negative for acute process. - Laboratory data: WBC 13.81. Hemoglobin 10.7. Platelet count 356. Sodium 135. Potassium 2.3. BUN 5. Creatinine 0.31. Calcium 4.1. Magnesium 0.5. AST 223. ALT 55. Troponin 0.022. proBNP 329. - Current home cardiac medication list is not updated at the time of this dictation - No previous echocardiogram, stress test, or cardiac catheterization available in EMR for review 12/27/2024 Patient examined this morning at the bedside. Patient currently denies any chest pain or pressure. He denies shortness of breath. Vital signs are stable. Echocardiogram completed revealing ejection fraction 20 to 25%, anterior apical, apical lateral and apical akinesis, possible Takotsubo, mild aortic and mitral regurgitation, mild tricuspid regurgitation 12/28/2024 Patient examined this morning at the bedside. Patient without complaints of chest pain or pressure. He denies shortness of breath. Repeat limited echo performed revealed ejection fraction 30 to 35%, apex akinetic 12/29/2024 Patient seen and examined. Patient denies chest pain or chest pressure. He denies shortness of breath. He is scheduled for cardiac catheterization today which will be done by Dr. Rosario. Blood pressure 98/67, heart rate 109, pulse ox 96% on room air. Repeat blood work reveals WBC 22.8, hemoglobin 8.6. Sodium 136, potassium 3.4, BUN 3 and creatinine 0.3. Calcium 6.4. AST 61, alkaline phosphatase 291. Repeat chest x-ray reveals multifocal airspace opacities concerning for pneumonia 12/30/2024 Patient seen and examined. Yesterday, he underwent cardiac catheterization with Dr. Rosario which revealed normal coronary arteries. Cardiomyopathy is nonischemic in etiology. Repeat chest x-ray reveals multifocal airspace opacities concerning for pneumonia. Blood pressure 100/65, heart rate 102, pulse ox 99% on room air. 12/31/2024 Patient seen and examined. LifeVest is in his room. Home patient does complain of soreness in his chest from CPR. He states he got up to the bathroom today and was feeling dizzy. Blood pressure 110/73, heart rate 105, pulse ox 88% on 6 L high flow nasal cannula. Patient is followed by infectious disease for possible colitis Abdominal ultrasound revealed thickened gallbladder wall. Correlate for signs of cholecystitis. Consider HIDA. Severe hepatic steatosis. CT abdomen pelvis: Moderate fatty infiltration of the liver. Consider cholecystitis. Correlate for underlying colitis. Bilateral small pleural effusions. 01/01/2025 Patient seen and examined. He denies chest pain or chest pressure. He is being followed by infectious disease and general surgery for cholecystitis or colitis. He is on IV antibiotics. Blood pressure 106/73, heart rate 109, pulse ox 94% on 12 L nasal cannula. Repeat blood work reveals WBC 19, hemoglobin 8.2, sodium 134, potassium 3.5 and creatinine 0.34. Alkaline phosphatase 288. PHYSICAL EXAM: VITAL SIGNS: Reviewed. GENERAL: Well-developed in no acute distress. HEENT: Head is normocephalic. Pupils are equal, round. Sclerae anicteric. Mucous membranes of the mouth are moist. Neck supple. No JVD or thyromegaly LUNGS: Respirations even and unlabored. Lungs essentially clear to auscultation bilaterally. HEART: Regular rate and rhythm. S1 and S2 heard. ABDOMEN: Soft. Nondistended. Nontender. EXTREMITIES: No clubbing or cyanosis. Peripheral pulses intact. No lower extremity edema NEUROLOGIC: Awake and alert. Oriented x 3. ASSESSMENT: V tach cardiac arrest Cardiomyopathy, EF 20 to 25%, nonischemic, possible Takotsubo, repeat echo 30- 35% Hypokalemia Hypomagnesemia Hypocalcemia Transaminitis Elevated ammonia level Coagulopathy, secondary to liver disease, INR 1.9 History of alcohol abuse History of pancreatitis History of splenic vein thrombosis, previously on Eliquis History of syncope Aspiration pneumonitis Colitis Possible cholecystitis Acute hypoxic respiratory failure PLAN: Continue current cardiac medications Add Lasix 40 mg IV twice daily Patient is cleared from a cardiology perspective LifeVest has been obtained for the patient At the time of discharge, he will follow-up in [address] Rosario Nurse practitioner note has been reviewed by physician. Signing provider agrees with the documented findings, assessment, and plan of care documented by WAGE CONCILIATOR as a scribe. Objective - Vital Signs Vital signs: Vital Signs Temp 97.7 F 01/01/25 04:00 Pulse 100 01/01/25 08:20 Resp 18 01/01/25 04:00 BP 120/82 01/01/25 04:00 Pulse Ox 93 L 01/01/25 08:51 FiO2 Intake & Output 12/31/24 01/01/25 01/01/25 18:59 06:59 18:59 Intake Total 20 222 Output Total 400 Balance -380 222 Weight 53.2 kg Intake: IV 20 Invasive Line 4 20 Oral 222 Output: Urine 400 Other: Voiding Method Urinal Urinal - Labs CBC & Chem 7: 01/01/25 05:52 01/01/25 05:52 Labs: Abnormal Lab Results - Last 24 Hours (Table) 12/31/24 12/31/24 01/01/25 Range/Units 06:23 06:23 05:52 WBC 19.16 H (4.50-10.00) 10*3/uL RBC 2.82 L (4.40-5.60) 10*6/uL Hgb 8.2 L (13.0-17.0) g/dL Hct 26.1 L (39.6-50.0) % MCHC 31.4 L (32.0-37.0) g/dL Plt Count 459 H (140-440) 10*3/uL MPV 9.4 L (9.5-12.2) fL Immature Gran # 0.14 H (0.00-0.04) 10*3/uL Neutrophils # 16.75 H (1.80-7.70) 10*3/uL ESR 47 H (0-15) mm/Hr Sodium (137-145) mmol/L BUN (9-20) mg/dL Creatinine (0.66-1.25) mg/dL Glucose (74-99) mg/dL Calcium (8.4-10.2) mg/dL Alkaline Phosphatase (38-126) U/L C-Reactive Protein 17.9 H (<1.0) mg/dL Total Protein (6.3-8.2) g/dL Albumin (3.5-5.0) g/dL 01/01/25 Range/Units 05:52 WBC (4.50-10.00) 10*3/uL RBC (4.40-5.60) 10*6/uL Hgb (13.0-17.0) g/dL Hct (39.6-50.0) % MCHC (32.0-37.0) g/dL Plt Count (140-440) 10*3/uL MPV (9.5-12.2) fL Immature Gran # (0.00-0.04) 10*3/uL Neutrophils # (1.80-7.70) 10*3/uL ESR (0-15) mm/Hr Sodium 134 L (137-145) mmol/L BUN 3 L (9-20) mg/dL Creatinine 0.34 L (0.66-1.25) mg/dL Glucose 131 H (74-99) mg/dL Calcium 6.8 L (8.4-10.2) mg/dL Alkaline Phosphatase 288 H (38-126) U/L C-Reactive Protein (<1.0) mg/dL Total Protein 4.3 L (6.3-8.2) g/dL Albumin 1.8 L (3.5-5.0) g/dL Microbiology - Last 24 Hours (Table) 12/31/24 09:04 Gram Stain - Preliminary Sputum
--- NOTE | 2025-01-01 14:06 | NM ---
EXAMINATION TYPE: NM hepatobiliary wo EF DATE OF EXAM: 01/01/2025 1:54 PM COMPARISON: 12/30/2024 CLINICAL INDICATION:Male, 44 years old with history of Abnormal CT/ultrasound question of cholecystit is; TECHNIQUE: The patient was given 4 mCi of Technetium 99m-Mebrofenin as a radiotracer and multiple sc intigraphic images were obtained of the abdomen. FINDINGS: Artifact seen over the right hepatic lobe near the dome laterally from metallic device on p atient. Normal uptake of radiotracer was identified within the liver with excretion into the hepatic and comm on biliary ducts within 15 min. There was normal progressive washout of the liver over the course of the study. Radiotracer uptake within the gallbladder at 90 minutes as well as small bowel activity w as identified at 15 minutes. IMPRESSION: Filling of the gallbladder on delayed imaging suggestive of chronic cholecystitis [facility], , 01/01/2025 2:04 PM
--- NOTE | 2025-01-01 14:12 | P.GSCN ---
History of Present Illness Consult date: 01/01/25 History of present illness: CHIEF COMPLAINT: Chest pain HISTORY OF PRESENT ILLNESS: This is a 44-year-old male who presented to the hospital with complaints of chest pain. He was diagnosed with cardiac arrest possibly secondary to ventricle tachycardia due to electrolyte abnormalities. They have been correcting the electrolytes. And he is followed by cardiology millicent carr. He has an EF of 30 to 35% and is waiting on receiving a LifeVest. He does have a known history of alcohol pancreatitis. He had a CT scan abdomen pelvis completed that reported a fatty liver and wall enhancement of the gallbladder consider cholecystitis. Also reported thickened sigmoid colon correlate for colitis. Ultrasound had reported thickened gallbladder wall. Patient denies any abdominal pain. He reports having normal bowel movement. Denies any nausea or vomiting. Surgical service consulted in regards to abdominal pain, leukocytosis, colitis and possible cholecystitis. Patient seen and examined with Dr. Ocampo. PAST MEDICAL HISTORY: TIA, GERD/Reflux, Hearing Disorder / Deafness, Hypertension, Musculoskeletal Disorder, chronic pancreatitis PAST SURGICAL HISTORY: Pseudocyst removed from stomach MEDICATIONS: See below ALLERGIES: See below SOCIAL HISTORY: No illicit drug use. REVIEW OF SYSTEMS: CONSTITUTIONAL: Denies fever or chills. HEENT: Denies blurred vision, vision changes, or eye pain. Denies hemoptysis CARDIOVASCULAR: Denies chest pain or pressure. RESPIRATORY: No shortness of breath. GASTROINTESTINAL: See HPI for pertinent findings HEMATOLOGIC: Denies bleeding disorders. GENITOURINARY: Denies any blood in urine or increased urinary frequency. SKIN: Denies pruitis. Denies rash. PHYSICAL EXAM: VITAL SIGNS: Reviewed GENERAL: Frail, pale, no acute distress. HEENT: No sclera icterus. Extraocular movements grossly intact. Moist buccal mucosa. Head is atraumatic, normocephalic. No nasal drainage. ABDOMEN: Soft. Nondistended. Nontender NEUROLOGIC: Alert and oriented. Cranial nerves II through XII grossly intact. LABORATORY DATA: WBC 25.5 down to 17.2 now 19.16 Hgb 8.2 platelets 459 sodium 134 potassium 3.5 creatinine 0.34 Total bilirubin 1.4 down to 0.9 AST 103 down to 48 ALT 24 alk phos 322 down to 288 Stool for C. difficile negative IMAGING: CT scan abdomen pelvis reports moderate fatty infiltration of the liver. Some wall enhancement of the gallbladder is not excluded. Consider cholecystitis. Diffuse thickening through sigmoid colon correlate for underlying colitis. Abdominal ultrasound thickened gallbladder wall however on CT and ultrasound imaging the gallbladder is nondistended correlate for clinical signs of cholecystitis. Severe hepatic steatosis. HIDA scan pending ASSESSMENT: 1. Thickened gallbladder wall noted on ultrasound. Patient has no tenderness in the right upper quadrant. 2. Colitis. Thickening of the sigmoid colon with possible colitis noted on CT scan 3. Cardiac arrest, ventricle tachycardia, electrolyte abnormalities PLAN: - No surgical intervention planned. Abdomen is nontender. Patient has multiple medical problems. - Continue to observe - Recommend medical management - Follow-up on HIDA scan results Physician Sign Fabricator note has been reviewed by physician. Signing provider agrees with the documented findings, assessment, and plan of care. Past Medical History Past Medical History: CVA/TIA, GERD/Reflux, Hearing Disorder / Deafness, Hypertension, Musculoskeletal Disorder Additional Past Medical History / Comment(s): TIA, States needs MRI of brain. "High heart rate recently from the pain". Hiatal hernia. Chronic pancreatitis/pain. 4 slipped discs in back. Sore muscles. Mild hearing loss. History of Any Multi-Drug Resistant Organisms: None Reported Additional Past Surgical History / Comment(s): "Pseudocyst removed from stomach". Past Anesthesia/Blood Transfusion Reactions: No Reported Reaction Past Psychological History: No Psychological Hx Reported Smoking Status: Current every day smoker Past Alcohol Use History: Abuse Past Drug Use History: Marijuana - Past Family History Father Family Medical History: Cancer Additional Family Medical History / Comment(s): Colon cancer. Medications and Allergies Home Medications Medication Instructions Recorded Confirmed Type Omeprazole 40 mg PO DAILY 08/02/23 12/24/24 History Lipase/Protease/Amylase [Creon Dr 3 cap PO TID-W/MEALS 09/25/24 12/24/24 History 36,000 Unit Capsule] Apixaban [Eliquis] 5 mg PO BID 12/24/24 12/24/24 History Pregabalin [Lyrica] 200 mg PO TID 12/24/24 12/24/24 History Allergies Allergy/AdvReac Type Severity Reaction Status Date / Time Milk Containing Products AdvReac Mild Abdominal Verified 12/25/24 17:22 (Dairy) Pain Surgical - Exam Vital Signs Pulse Resp BP 115 H 20 104/91 12/24/24 07:04 12/24/24 07:04 12/24/24 07:04 Results - Labs 01/01/25 05:52 01/01/25 05:52 Abnormal Lab Results - Last 24 Hours (Table) 12/31/24 01/01/25 01/01/25 Range/Units 06:23 05:52 05:52 WBC 19.16 H (4.50-10.00) 10*3/uL RBC 2.82 L (4.40-5.60) 10*6/uL Hgb 8.2 L (13.0-17.0) g/dL Hct 26.1 L (39.6-50.0) % MCHC 31.4 L (32.0-37.0) g/dL Plt Count 459 H (140-440) 10*3/uL MPV 9.4 L (9.5-12.2) fL Immature Gran # 0.14 H (0.00-0.04) 10*3/uL Neutrophils # 16.75 H (1.80-7.70) 10*3/uL ESR 47 H (0-15) mm/Hr Sodium 134 L (137-145) mmol/L BUN 3 L (9-20) mg/dL Creatinine 0.34 L (0.66-1.25) mg/dL Glucose 131 H (74-99) mg/dL POC Glucose (mg/dL) (70-110) mg/dL Calcium 6.8 L (8.4-10.2) mg/dL Alkaline Phosphatase 288 H (38-126) U/L Total Protein 4.3 L (6.3-8.2) g/dL Albumin 1.8 L (3.5-5.0) g/dL 01/01/25 Range/Units 11:22 WBC (4.50-10.00) 10*3/uL RBC (4.40-5.60) 10*6/uL Hgb (13.0-17.0) g/dL Hct (39.6-50.0) % MCHC (32.0-37.0) g/dL Plt Count (140-440) 10*3/uL MPV (9.5-12.2) fL Immature Gran # (0.00-0.04) 10*3/uL Neutrophils # (1.80-7.70) 10*3/uL ESR (0-15) mm/Hr Sodium (137-145) mmol/L BUN (9-20) mg/dL Creatinine (0.66-1.25) mg/dL Glucose (74-99) mg/dL POC Glucose (mg/dL) 172 H (70-110) mg/dL Calcium (8.4-10.2) mg/dL Alkaline Phosphatase (38-126) U/L Total Protein (6.3-8.2) g/dL Albumin (3.5-5.0) g/dL Microbiology - Last 24 Hours (Table) 12/31/24 09:04 Gram Stain - Preliminary Sputum Sputum Culture - Preliminary Diabetes panel 01/01/25 Range/Units 05:52 Sodium 134 L (137-145) mmol/L Potassium 3.5 (3.5-5.1) mmol/L Chloride 106 (98-107) mmol/L Carbon Dioxide 22 (22-30) mmol/L BUN 3 L (9-20) mg/dL Creatinine 0.34 L (0.66-1.25) mg/dL Glucose 131 H (74-99) mg/dL Calcium 6.8 L (8.4-10.2) mg/dL AST 48 (17-59) U/L ALT 24 (4-49) U/L Alkaline Phosphatase 288 H (38-126) U/L Total Protein 4.3 L (6.3-8.2) g/dL Albumin 1.8 L (3.5-5.0) g/dL Calcium panel 01/01/25 Range/Units 05:52 Calcium 6.8 L (8.4-10.2) mg/dL Albumin 1.8 L (3.5-5.0) g/dL Pituitary panel 01/01/25 Range/Units 05:52 Sodium 134 L (137-145) mmol/L Potassium 3.5 (3.5-5.1) mmol/L Chloride 106 (98-107) mmol/L Carbon Dioxide 22 (22-30) mmol/L BUN 3 L (9-20) mg/dL Creatinine 0.34 L (0.66-1.25) mg/dL Glucose 131 H (74-99) mg/dL Calcium 6.8 L (8.4-10.2) mg/dL Adrenal panel 06/19/25 Range/Units 05:52 Sodium 134 L (137-145) mmol/L Potassium 3.5 (3.5-5.1) mmol/L Chloride 106 (98-107) mmol/L Carbon Dioxide 22 (22-30) mmol/L BUN 3 L (9-20) mg/dL Creatinine 0.34 L (0.66-1.25) mg/dL Glucose 131 H (74-99) mg/dL Calcium 6.8 L (8.4-10.2) mg/dL Total Bilirubin 0.9 (0.2-1.3) mg/dL AST 48 (17-59) U/L ALT 24 (4-49) U/L Alkaline Phosphatase 288 H (38-126) U/L Total Protein 4.3 L (6.3-8.2) g/dL Albumin 1.8 L (3.5-5.0) g/dL
[2025-01-01] MEDS: HYDROmorphone 0.5 MG/0.5 ML SYRINGE IVP STA (15:11)
--- NOTE | 2025-01-01 15:28 | XR ---
EXAMINATION TYPE: XR chest 1V portable DATE OF EXAM: 01/01/2025 3:13 PM COMPARISON: Chest radiographs from 12/29/2024 CLINICAL INDICATION: Male, 44 years old with history of shortness of breath; [facility] TECHNIQUE: XR chest 1V portable Frontal view of the chest. FINDINGS: Lungs/Pleura: No evidence of focal consolidation or pneumothorax. Blunting of the costophrenic angles is present. Pulmonary vascularity: Pulmonary vascular congestion. Heart/mediastinum: Cardiomediastinal silhouette is enlarged. Musculoskeletal: No acute osseous pathology. IMPRESSION: Cardiomegaly, pulmonary vascular congestion and bilateral pleural effusions. Correlate with BNP for c ongestive heart failure. [facility], , 01/01/2025 3:26 PM
[2025-01-01 16:30] LABS: Glucose,Whole Blood 211 mg/dL (70-110)
[2025-01-01 20:00] LABS: Glucose,Whole Blood 187 mg/dL (70-110)
--- NOTE | 2025-01-01 22:25 | P.PN ---
Subjective Progress Note Date: 01/01/25 Principal diagnosis: Reason for follow-up is pneumonia/colitis Patient is a 44-year-old male with a past medical history significant for CVA TIA reflux history of recurrent/chronic pancreatitis from alcoholism and hypertension patient was brought into the hospital for lethargy seizure activity did have a cardiac arrest/V. tach requiring shock and subsequent admitted to the hospital. On today's evaluation that is 01/01/2025,the patient remains to be afebrile, patient is on high flow nasal cannula oxygen and complaining of some shortness of breath no chest pain no cough some nausea no vomiting no diarrhea has been reported. Patient white count slightly up to 19.16 today creatinine 0.34 HIDA scan suggestive of chronic cholecystitis sputum cultures are pending Objective - Vital Signs Vital signs: Vital Signs Temp 97.5 F L 01/01/25 11:30 Pulse 109 H 01/01/25 11:30 Resp 20 01/01/25 11:30 BP 106/73 01/01/25 11:30 Pulse Ox 94 L 01/01/25 11:30 FiO2 Intake & Output 12/31/24 01/01/25 01/01/25 18:59 06:59 18:59 Intake Total 20 222 180 Output Total 400 1150 Balance -380 222 -970 Weight 53.2 kg Intake: IV 20 Invasive Line 4 20 Oral 222 180 Output: Urine 400 1150 Other: Voiding Method Urinal Urinal - Exam GENERAL DESCRIPTION: Middle-age male lying in bed in no distress RESPIRATORY SYSTEM: Unlabored breathing , decreased breath sounds at bases HEART: S1 S2 regular rate and rhythm , ABDOMEN: Soft , no tenderness EXTREMITIES: No edema feet - Labs CBC & Chem 7: 01/01/25 05:52 01/01/25 05:52 Labs: Abnormal Lab Results - Last 24 Hours (Table) 12/31/24 01/01/25 01/01/25 Range/Units 06:23 05:52 05:52 WBC 19.16 H (4.50-10.00) 10*3/uL RBC 2.82 L (4.40-5.60) 10*6/uL Hgb 8.2 L (13.0-17.0) g/dL Hct 26.1 L (39.6-50.0) % MCHC 31.4 L (32.0-37.0) g/dL Plt Count 459 H (140-440) 10*3/uL MPV 9.4 L (9.5-12.2) fL Immature Gran # 0.14 H (0.00-0.04) 10*3/uL Neutrophils # 16.75 H (1.80-7.70) 10*3/uL ESR 47 H (0-15) mm/Hr Sodium 134 L (137-145) mmol/L BUN 3 L (9-20) mg/dL Creatinine 0.34 L (0.66-1.25) mg/dL Glucose 131 H (74-99) mg/dL POC Glucose (mg/dL) (70-110) mg/dL Calcium 6.8 L (8.4-10.2) mg/dL Alkaline Phosphatase 288 H (38-126) U/L Total Protein 4.3 L (6.3-8.2) g/dL Albumin 1.8 L (3.5-5.0) g/dL 01/01/25 Range/Units 11:22 WBC (4.50-10.00) 10*3/uL RBC (4.40-5.60) 10*6/uL Hgb (13.0-17.0) g/dL Hct (39.6-50.0) % MCHC (32.0-37.0) g/dL Plt Count (140-440) 10*3/uL MPV (9.5-12.2) fL Immature Gran # (0.00-0.04) 10*3/uL Neutrophils # (1.80-7.70) 10*3/uL ESR (0-15) mm/Hr Sodium (137-145) mmol/L BUN (9-20) mg/dL Creatinine (0.66-1.25) mg/dL Glucose (74-99) mg/dL POC Glucose (mg/dL) 172 H (70-110) mg/dL Calcium (8.4-10.2) mg/dL Alkaline Phosphatase (38-126) U/L Total Protein (6.3-8.2) g/dL Albumin (3.5-5.0) g/dL Microbiology - Last 24 Hours (Table) 12/31/24 09:04 Gram Stain - Preliminary Sputum Sputum Culture - Preliminary Assessment and Plan (1) Sepsis Current Visit: Yes Status: Acute Code(s): A41.9 - SEPSIS, UNSPECIFIED ORGANISM SNOMED Code(s): 22037072 (2) Aspiration pneumonitis Current Visit: Yes Status: Acute Code(s): J69.0 - PNEUMONITIS DUE TO INHALATION OF FOOD AND VOMIT SNOMED Code(s): 094291229 (3) Colitis Current Visit: Yes Status: Acute Code(s): K52.9 - NONINFECTIVE GASTROENTERITIS AND COLITIS, UNSPECIFIED SNOMED Code(s): 16653994 (4) Cholecystitis Current Visit: Yes Status: Acute Code(s): K81.9 - CHOLECYSTITIS, UNSPECIFIED SNOMED Code(s): 77588590 Plan: 1patient presented to hospital with sepsis in this patient who did have tachycardia hypotension elevated white count meeting criteria for SIRS source likely aspiration pneumonitis as the patient did have intractable nausea vomiting before the patient has been brought to the hospital patient also have abnormality on the abdominal pelvis CT concerning for colitis question of infectious etiology need to be ruled out patient did not recall if he has been on antibiotic in the recent past 2-sputum cultures collected on 12/31/2024 results will be followed 3-patient is afebrile white count is slightly up compared to yesterday, patient CT as well as ultrasound has been suspicious for cholecystitis HIDA scan has been suspicious for chronic cholecystitis General Surgery has been consulted continue with Juan Dictation was produced using [employer] dictation software. please excuse any grammatical, word or spelling errors. Time with Patient: Less than 30
[2025-01-01 22:49] LABS: Glucose,Whole Blood 166 mg/dL (70-110)
[2025-01-01] MEDS ORDERED: EPINEPHrine 10 ML SYRINGE (0.1 MG/ML) ONE (22:49)
[2025-01-01 23:07] LABS: Glucose,Whole Blood 192 mg/dL (70-110)
[2025-01-01 23:23] LABS: ABG HCO3 12 mmol/L (21-25); ABG PCO2 48 mmHg (35-45); ABG PO2 60 mmHg (83-108); ABG TCO2 13 mmol/L (19-24); Allen Test Performed? Yes
[2025-01-01 23:25] LABS: ABG PH 6.99 (7.35-7.45)
[2025-01-01] MEDS: SODIUM BICARB 8.4% 50 ML SYR (1 MEQ/ML) IV STA (23:33)
[2025-01-01 23:43] LABS: HCT 27.3 % (39.6-50.0); HGB 8.4 g/dL (13.0-17.0); MCH 30.5 pg (27.0-32.0); MCHC 30.8 g/dL (32.0-37.0); Platelet Count 479 10*3/uL (140-440); RBC 2.75 10*6/uL (4.40-5.60); RDW 21.4 % (11.5-14.5); WBC 28.92 10*3/uL (4.50-10.00)
[2025-01-01 23:47] LABS: MCV 99.3 fL (80.0-97.0)
[2025-01-01] MEDS: MIDAZOLAM 1 MG/ML 5 ML VIAL IV STA (23:47)
[2025-01-01] MEDS: DEXTROSE 5% IN WATER 1,000 ML with SODIUM BICARB (1 MEQ/ML) 150 ML IV SCH (23:49)
[2025-01-01] MEDS: fentaNYL (PF) 50 MCG/ML 2 ML AMP IVP STA (23:51)
[2025-01-01] MEDS ORDERED: VANCOMYCIN IV PER PHARMACY 1 EACH MISC MISCELLANE PRN (23:55)
[2025-01-01 23:58] LABS: AST 87 U/L (17-59); African American GFR (CKD) >90 (>60 ml/min/1.73 sqM); Albumin 1.9 g/dL (3.5-5.0); Alkaline Phosphatase 257 U/L (38-126); Anion Gap 23 mmol/L; Blood Urea Nitrogen <2 mg/dL (9-20); Calcium 6.7 mg/dL (8.4-10.2); Chloride 107 mmol/L (98-107); Glucose 150 mg/dL (74-99); Non-African American GFR(CKD) >90 (>60 ml/min/1.73 sqM); Potassium 3.3 mmol/L (3.5-5.1); Sodium 138 mmol/L (137-145); Total Protein 4.6 g/dL (6.3-8.2)
[2025-01-02] MEDS ORDERED: fentaNYL (PF). 1,000 MCG in SODIUM CHLORIDE 0.9% 80 ML IV SCH
[2025-01-02] MEDS ORDERED: MIDAZOLAM HCL 50 MG in SODIUM CHLORIDE 0.9% 40 ML IV SCH
[2025-01-02 00:04] LABS: ALT 34 U/L (4-49)
[2025-01-02 00:05] LABS: NT-Pro-B-Type Natriuretic Pept 4920 pg/mL
[2025-01-02 00:08] LABS: Carbon Dioxide 8 mmol/L (22-30)
[2025-01-02] MEDS: fentaNYL (PF). 1,000 MCG in SODIUM CHLORIDE 0.9% 80 ML IV SCH (00:12)
[2025-01-02] MEDS: MIDAZOLAM HCL 50 MG in SODIUM CHLORIDE 0.9% 40 ML IV SCH (00:12)
[2025-01-02 00:20] LABS: INR 1.9 (<1.2); Partial Thromboplastin Time 35.3 sec (22.0-30.0); Prothrombin Time 19.3 sec (10.0-12.5)
--- NOTE | 2025-01-02 00:21 | XR ---
EXAM: XR Chest, 1 View CLINICAL HISTORY: XR Reason: Pneumonia and intubated TECHNIQUE: Frontal view of the chest. COMPARISON: 01/01/2025 at 2:47 p.m. FINDINGS: Lungs: Severe diffuse edema or pneumonia throughout both lungs, worse than previous. Pleural space: There is a new left-sided pneumothorax measuring approximately 2.5 cm, 20-30% at the left apex. Heart: Unremarkable. No cardiomegaly. Mediastinum: Unremarkable. Normal mediastinal contour. Bones/joints: Unremarkable. No acute fracture. Tubes, lines and devices: Endotracheal tube tip located 4.3 cm from the yoli. The NG tube extends into the stomach. Artifact from external defibrillating device over the chest. IMPRESSION: 1. There is a new left-sided pneumothorax measuring approximately 2.5 cm, 20-30% at the left apex. 2. Severe diffuse edema or pneumonia throughout both lungs, worse than previous. 3. Endotracheal tube tip located 4.3 cm from the yoli. The NG tube extends into the stomach. <MYCVCSECTION> Communications: 01/02/25 00:34 Call Doctor Regarding Pneumothorax, called ICU Nurse Noemí for Dr. Jay on 01/02 00:34 (-04:00) (see notes)
[2025-01-02] MEDS: VANCOMYCIN 1,000 MG in SODIUM CHLORIDE 0.9% 250 ML IVPB ONE (00:32)
--- NOTE | 2025-01-02 00:43 | P.EN ---
on 01/01/2025 around 22:50 code blue was activated with reports of diminished breath sounds and patient was very tachypneic. He became bradycardic with a heart rate of 35 . Patient went into asystole and CPR was started . Patient received 2 rounds of epinephrine and ROSC was achieved. Patient is currently being treated for possible colitis with Zosyn. He is on amiodarone (admitted for V. tach cardiac arrest) and cardiology has been following. His chest x-ray on January 01 was showing cardiomegaly with pulmonary vascular congestion and bilateral pleural effusion . CXR on January 02 showing new left-sided pneumothorax measuring 2.5 cm 20 to 30% at the left apex with severe diffuse edema or pneumonia throughout both lungs. Patient is intubated and will be sedated with Versed (propofol can cause bradycardia) and fentanyl. NG tube and Kellogg catheter in place. Continue with Zosyn and will start patient on vancomycin with pharmacy dosing. Repeat labs showing a WBC of 28.9, hemoglobin of 8.4, INR of 1.9, sodium 138, potassium 3.3, serum CO2 of 8, alk phos 257, troponin 0.174, albumin 1.9 . ABG was done showing 6.90 9/48/60/12 . Bicarb drip was started . ICU unit was contacted and they will contact Dr. Jay for further recommendation regarding the pneumothorax . Will continue with diuresis and adjust vent settings based blood gas . Will repeat ABG in one hour . Impression likely patient had respiratory arrest causing asystole cardiac arrest . Time spent : 60 min critical time
[2025-01-02] MEDS: SODIUM CHLORIDE 0.9% 1,000 ML IV ONE ×2 (02:40→05:47)
--- NOTE | 2025-01-02 02:56 | XR ---
EXAM: XR Chest, 1 View CLINICAL HISTORY: XR Reason: chest tube TECHNIQUE: Frontal view of the chest. COMPARISON: 01/01/2025 at 11:13 p.m.. FINDINGS: Lungs: Severe diffuse airspace infiltrates throughout both lungs, unchanged. Pleural space: Slight pleural thickening inferiorly on the right. Probable small right pleural effusion. Heart: Unremarkable. No cardiomegaly. Mediastinum: Unremarkable. Normal mediastinal contour. Bones/joints: Unremarkable. No acute fracture. Tubes, lines and devices: There is a new small caliber Pneumovax tube in the left upper pleural space. The previously seen pneumothorax is much smaller now measuring 6 mm. Endotracheal tube tip in standard position at the level of the clavicles, 4.5 cm from the yoli. There is an NG tube extending into the stomach. There is a right internal jugular central venous catheter in the superior vena cava. IMPRESSION: 1. Severe diffuse airspace infiltrates throughout both lungs, unchanged. 2. There is a new small caliber Pneumovax tube in the left upper pleural space. The previously seen pneumothorax is much smaller now measuring 6 mm. 3. Endotracheal tube tip in standard position at the level of the clavicles, 4.5 cm from the yoli. There is an NG tube extending into the stomach. There is a right internal jugular central venous catheter in the superior vena cava.
--- NOTE | 2025-01-02 05:43 | P.PN ---
Subjective Progress Note Date: 01/01/25 This is a pleasant 44-year-old male who was recently admitted after brief cardiac arrest with multiple electrolyte abnormalities being closely monitored. Patient being followed by cardiology and is status post cardiac catheterization recommending maximizing medical management and normal coronary arteries noted. Patient reports to having increasing pain and also generalized weakness although reports will be going home on discharge. Patient did have an elevated white count that had been trending down although is slightly up today with infectious disease following and will repeat CT abdomen for further evaluation. Continue current antibiotics at this time. Case management is following as plan is for LifeVest on discharge. Recommend incentive spirometer as patient is requiring oxygen and may require oxygen on discharge. Will reattempt home oxygen evaluation. Encourage increase activity as tolerated with sitting up out of the bed more frequently. Labs reviewed and white count is 25.52, hemoglobin is 8.8, platelets 446, sodium 137 with a potassium of 3.5, BUN is 5 and creatinine 0.33. Calcium is slightly low at 6.2, total bili is 1.4. 12/31/2024 Patient is seen in follow-up with multiple consultations following. White count was elevated although slightly improving with infectious disease following we will continue current regimen at this time. Patient continues to report short ness of breath and generalized pain and continues to require oxygen. Will need home O2 assessment. Patient underwent CT abdomen and will consult general surgery for evaluation. Encouraged increased activity as tolerated with sitting up more frequently in the chair. 01/01/2025 Patient seen and evaluated this morning currently scheduled to undergo HIDA scan per general surgery and patient is currently requesting increase in pain medications as she reports diffuse pain. Pain medications through the IV are currently on hold as patient will be undergoing HIDA scan. Patient's white count is elevated with infectious disease following maintained on Zosyn and will continue. Patient is afebrile with no reports of chest pain or palpitations. Patient is reporting some congestion and occasional shortness of breath. Will order chest x-ray as well. Continue DuoNeb treatments and supplemental oxygen as needed. Patient currently maintained on 5 L. Would recommend PT/OT therapy evaluation as patient has had prolonged cough elevation and appears frail and extremely weak. Review of systems: Constitutional: No reports of fatigue, fever, or chills Cardiovascular: No reports of chest pain or palpitations Respiratory: reports of shortness of breath with cough GI: No reports of nausea, no reports of vomiting, having loose stools : No reports of dysuria or retention Neurovascular: reports of generalized weakness, reports back pain All medications have been reviewed PHYSICAL EXAMINATION: GENERAL: The patient is alert and oriented x3, Well developed, elderly appearing, thin built, cachectic, chronically ill-appearing HEENT: Pupils are round and equally reacting to light. EOMI. no scleral icterus. No conjunctival pallor. Normocephalic, atraumatic. No pharyngeal erythema. No th yromegaly. CARDIOVASCULAR: S1 and S2 muffled PULMONARY: diminished breath sounds bilaterally with no wheezing, scattered coarse rhonchi noted with upper bronchial congestion. ABDOMEN: soft. Nontender on exam. Thin non-distended, normoactive bowel sounds. No palpable organomegaly. MUSCULOSKELETAL: No joint swelling or deformity. EXTREMITIES: No cyanosis, clubbing, or pedal edema. NEUROLOGICAL: Gross neurological examination did not reveal any focal deficits. Diffuse weakness SKIN: No rashes. Assessment: Cardiac arrest, possibly secondary to ventricular tachycardia secondary to mul tiple electrolyte abnormalities Severe hypokalemia, hypomagnesemia, hypocalcemia, improving after replacement History of EtOH Nonischemic cardiomyopathy possible Takotsubo, EF was 20 to 25%, repeat is 30- 35, being fitted for LifeVest Possible acute colitis as noted on imaging Diabetes mellitus, type II, uncontrolled with hyperglycemia History of pancreatitis Tachycardia Anemia, chronic Concerns of possible right lower lobe pneumonia, possibly aspiration History of splenic vein thrombosis, was on Eliquis Hepatic encephalopathy Moderate protein calorie malnutrition with a BMI of 17.7 GI prophylaxis DVT prophylaxis Full code Plan: Recommend to continue with current medications and management with multiple consultations following. Infectious disease following as white count is trending up and patient is maintained on antibiotics and will continue. Patient underwent repeat CT abdomen as patient's white count is elevated and continues to have urinary retention as well. general surgery consulted and HIDA scan ordered for today. Patient currently n.p.o. Cardiology following and patient is status post catheterization recommending maximizing medical management and case management following and has received LifeVest Continue monitoring Accu-Cheks AC and at bedtime and adjust accordingly Follow-up on repeat labs and replace electrolytes per protocol. Recommend PT/OT therapy evaluation as patient reports will be going home although has had cardiac arrest with prolonged hospitalization, patient may likely benefit from ECF Due to multiple complex medical issues, overall prognosis is guarded The impression and plan of care has been dictated by Ana Duggan, nurse practitioner as directed. Dr. Germain MD I have performed a history and examination and MDM of this patient, discussed the same with the dictator, and agree with the dictator's assessment and plan a s written ,documented as a scribe. Based on total visit time, I have performed more than 50% of the visit. Any additional findings or plans will be noted. Objective - Vital Signs Vital signs: Vital Signs Temp 97.7 F 01/01/25 20:00 Pulse 98 01/02/25 05:00 Resp 38 H 01/02/25 05:00 BP 97/63 01/02/25 05:00 Pulse Ox 63 L 01/02/25 05:00 FiO2 100 01/02/25 04:00 Intake & Output 01/01/25 01/01/25 01/02/25 06:59 18:59 06:59 Intake Total 222 1330 2122.612 Output Total 1150 800 Balance 961 988 1244.612 Weight 53.2 kg 56.7 kg Intake: IV 750 Sodium Chloride 0.9% 1, 750 000 ml @ 75 mls/hr IV . [id number] VLAD Rx#:[id number] Intake, IV Titration 400 2122.612 Amount Dextrose 5% in Water 1, 900 000 ml @ 150 mls/hr IV . Q7H40M VLAD with Sodium Bicarb (1 Meq/ml) 150 ml Rx#:[id number] Midazolam HCl 50 mg In 0.8 Sodium Chloride 0.9% 40 ml @ 1 MG/HR 1 mls/hr IV .Q24H [facility]AD Rx#:[id number] Piperacillin-Tazobactam 3 200 100 .375 gm In Sodium Chloride 0.9% 100 ml @ 25 mls/hr IVPB Q8HR [facility]AD Rx# :[id number] Sodium Chloride 0.9% 1, 1000 000 ml @ 999 mls/hr IV . Q1H1M ONE Rx#:[id number] metroNIDAZOLE-NS PMX 500 200 100 mg In Saline 1 100ml.bag @ 100 mls/hr IVPB Q8HR VLAD Rx#:[id number] propofoL 1,000 mg In 21.812 Empty Bag 1 bag @ 15 MCG/ KG/MIN 4.788 mls/hr IV . [id number] [facility] Rx#:[id number] Oral 222 180 Output: Chest Tube Drainage 350 Thora-Vent Left Anterior 350 Chest Urine 1150 450 Other: Voiding Method Urinal Indwelling Catheter - Labs CBC & Chem 7: 01/01/25 23:29 01/01/25 23:29 Labs: Abnormal Lab Results - Last 24 Hours (Table) 01/01/25 01/01/25 01/01/25 Range/Units 05:52 05:52 11:22 WBC 19.16 H (4.50-10.00) 10*3/uL RBC 2.82 L (4.40-5.60) 10*6/uL Hgb 8.2 L (13.0-17.0) g/dL Hct 26.1 L (39.6-50.0) % MCV (80.0-97.0) fL MCHC 31.4 L (32.0-37.0) g/dL Plt Count 459 H (140-440) 10*3/uL MPV 9.4 L (9.5-12.2) fL Immature Gran # 0.14 H (0.00-0.04) 10*3/uL Neutrophils # 16.75 H (1.80-7.70) 10*3/uL PT (10.0-12.5) sec INR (<1.2) APTT (22.0-30.0) sec ABG pH (7.35-7.45) ABG pCO2 (35-45) mmHg ABG pO2 (83-108) mmHg ABG HCO3 (21-25) mmol/L ABG Total CO2 (19-24) mmol/L ABG O2 Saturation (94-97) % Hemoglobin (13.0-17.5) gm/dL Sodium 134 L (137-145) mmol/L Potassium (3.5-5.1) mmol/L Carbon Dioxide (22-30) mmol/L BUN 3 L (9-20) mg/dL Creatinine 0.34 L (0.66-1.25) mg/dL Glucose 131 H (74-99) mg/dL POC Glucose (mg/dL) 172 H (70-110) mg/dL Plasma Lactic Acid Sina (0.7-2.0) mmol/L Calcium 6.8 L (8.4-10.2) mg/dL AST (17-59) U/L Alkaline Phosphatase 288 H (38-126) U/L Troponin I (0.000-0.034) ng/mL Total Protein 4.3 L (6.3-8.2) g/dL Albumin 1.8 L (3.5-5.0) g/dL 01/01/25 01/01/25 01/01/25 Range/Units 16:26 19:58 22:48 WBC (4.50-10.00) 10*3/uL RBC (4.40-5.60) 10*6/uL Hgb (13.0-17.0) g/dL Hct (39.6-50.0) % MCV (80.0-97.0) fL MCHC (32.0-37.0) g/dL Plt Count (140-440) 10*3/uL MPV (9.5-12.2) fL Immature Gran # (0.00-0.04) 10*3/uL Neutrophils # (1.80-7.70) 10*3/uL PT (10.0-12.5) sec INR (<1.2) APTT (22.0-30.0) sec ABG pH (7.35-7.45) ABG pCO2 (35-45) mmHg ABG pO2 (83-108) mmHg ABG HCO3 (21-25) mmol/L ABG Total CO2 (19-24) mmol/L ABG O2 Saturation (94-97) % Hemoglobin (13.0-17.5) gm/dL Sodium (137-145) mmol/L Potassium (3.5-5.1) mmol/L Carbon Dioxide (22-30) mmol/L BUN (9-20) mg/dL Creatinine (0.66-1.25) mg/dL Glucose (74-99) mg/dL POC Glucose (mg/dL) 211 H 187 H 166 H (70-110) mg/dL Plasma Lactic Acid Sina (0.7-2.0) mmol/L Calcium (8.4-10.2) mg/dL AST (17-59) U/L Alkaline Phosphatase (38-126) U/L Troponin I (0.000-0.034) ng/mL Total Protein (6.3-8.2) g/dL Albumin (3.5-5.0) g/dL 01/01/25 01/01/25 01/01/25 Range/Units 23:05 23:21 23:29 WBC (4.50-10.00) 10*3/uL RBC (4.40-5.60) 10*6/uL Hgb (13.0-17.0) g/dL Hct (39.6-50.0) % MCV (80.0-97.0) fL MCHC (32.0-37.0) g/dL Plt Count (140-440) 10*3/uL MPV (9.5-12.2) fL Immature Gran # (0.00-0.04) 10*3/uL Neutrophils # (1.80-7.70) 10*3/uL PT (10.0-12.5) sec INR (<1.2) APTT (22.0-30.0) sec ABG pH 6.99 L* (7.35-7.45) ABG pCO2 48 H (35-45) mmHg ABG pO2 60 L (83-108) mmHg ABG HCO3 12 L (21-25) mmol/L ABG Total CO2 13 L (19-24) mmol/L ABG O2 Saturation 70.2 L (94-97) % Hemoglobin 8.6 L (13.0-17.5) gm/dL Sodium (137-145) mmol/L Potassium 3.3 L (3.5-5.1) mmol/L Carbon Dioxide 8 L* (22-30) mmol/L BUN <2 L (9-20) mg/dL Creatinine 0.38 L (0.66-1.25) mg/dL Glucose 150 H (74-99) mg/dL POC Glucose (mg/dL) 192 H (70-110) mg/dL Plasma Lactic Acid Sina (0.7-2.0) mmol/L Calcium 6.7 L (8.4-10.2) mg/dL AST 87 H (17-59) U/L Alkaline Phosphatase 257 H (38-126) U/L Troponin I (0.000-0.034) ng/mL Total Protein 4.6 L (6.3-8.2) g/dL Albumin 1.9 L (3.5-5.0) g/dL 01/01/25 01/01/25 01/01/25 Range/Units 23:29 23:29 23:29 WBC 28.92 H (4.50-10.00) 10*3/uL RBC 2.75 L (4.40-5.60) 10*6/uL Hgb 8.4 L (13.0-17.0) g/dL Hct 27.3 L (39.6-50.0) % MCV 99.3 H D (80.0-97.0) fL MCHC 30.8 L (32.0-37.0) g/dL Plt Count 479 H (140-440) 10*3/uL MPV (9.5-12.2) fL Immature Gran # (0.00-0.04) 10*3/uL Neutrophils # (1.80-7.70) 10*3/uL PT 19.3 H (10.0-12.5) sec INR 1.9 H (<1.2) APTT 35.3 H (22.0-30.0) sec ABG pH (7.35-7.45) ABG pCO2 (35-45) mmHg ABG pO2 (83-108) mmHg ABG HCO3 (21-25) mmol/L ABG Total CO2 (19-24) mmol/L ABG O2 Saturation (94-97) % Hemoglobin (13.0-17.5) gm/dL Sodium (137-145) mmol/L Potassium (3.5-5.1) mmol/L Carbon Dioxide (22-30) mmol/L BUN (9-20) mg/dL Creatinine (0.66-1.25) mg/dL Glucose (74-99) mg/dL POC Glucose (mg/dL) (70-110) mg/dL Plasma Lactic Acid Sina (0.7-2.0) mmol/L Calcium (8.4-10.2) mg/dL AST (17-59) U/L Alkaline Phosphatase (38-126) U/L Troponin I 0.174 H* (0.000-0.034) ng/mL Total Protein (6.3-8.2) g/dL Albumin (3.5-5.0) g/dL 01/02/25 Range/Units 02:30 WBC (4.50-10.00) 10*3/uL RBC (4.40-5.60) 10*6/uL Hgb (13.0-17.0) g/dL Hct (39.6-50.0) % MCV (80.0-97.0) fL MCHC (32.0-37.0) g/dL Plt Count (140-440) 10*3/uL MPV (9.5-12.2) fL Immature Gran # (0.00-0.04) 10*3/uL Neutrophils # (1.80-7.70) 10*3/uL PT (10.0-12.5) sec INR (<1.2) APTT (22.0-30.0) sec ABG pH (7.35-7.45) ABG pCO2 (35-45) mmHg ABG pO2 (83-108) mmHg ABG HCO3 (21-25) mmol/L ABG Total CO2 (19-24) mmol/L ABG O2 Saturation (94-97) % Hemoglobin (13.0-17.5) gm/dL Sodium (137-145) mmol/L Potassium (3.5-5.1) mmol/L Carbon Dioxide (22-30) mmol/L BUN (9-20) mg/dL Creatinine (0.66-1.25) mg/dL Glucose (74-99) mg/dL POC Glucose (mg/dL) (70-110) mg/dL Plasma Lactic Acid Sina 14.8 H* (0.7-2.0) mmol/L Calcium (8.4-10.2) mg/dL AST (17-59) U/L Alkaline Phosphatase (38-126) U/L Troponin I (0.000-0.034) ng/mL Total Protein (6.3-8.2) g/dL Albumin (3.5-5.0) g/dL Microbiology - Last 24 Hours (Table) 12/31/24 09:04 Gram Stain - Preliminary Sputum Sputum Culture - Preliminary
[2025-01-02] MEDS: NOREPINEPHRINE 8 MG in SODIUM CHLORIDE 0.9% 250 ML IV SCH (06:00)
[2025-01-02 06:16] LABS: Glucose,Whole Blood 193 mg/dL (70-110)
[2025-01-02 06:30] LABS: Basophils # (A) 0.05 10*3/uL (0.00-0.10); Basophils % (A) 0.2 %; Eosinophils # (A) 0.00 10*3/uL (0.04-0.35); Eosinophils % (A) 0.0 %; HCT 21.8 % (39.6-50.0); Lymphocytes # (A) 1.33 10*3/uL (0.90-5.00); Lymphocytes % (A) 4.9 %; MCH 30.4 pg (27.0-32.0); MCHC 31.7 g/dL (32.0-37.0); MCV 96.0 fL (80.0-97.0); Monocytes # (A) 0.94 10*3/uL (0.20-1.00); Monocytes % (A) 3.5 %; Neutrophils # (A) 24.22 10*3/uL (1.80-7.70); Neutrophils % (A) 89.0 %; Platelet Count 339 10*3/uL (140-440); RBC 2.27 10*6/uL (4.40-5.60); RDW 21.8 % (11.5-14.5); WBC 27.20 10*3/uL (4.50-10.00)
[2025-01-02 06:40] LABS: HGB 6.9 g/dL (13.0-17.0)
[2025-01-02 06:54] LABS: AST 99 U/L (17-59); African American GFR (CKD) >90 (>60 ml/min/1.73 sqM); Albumin 1.4 g/dL (3.5-5.0); Alkaline Phosphatase 183 U/L (38-126); Anion Gap 15 mmol/L; Blood Urea Nitrogen <2 mg/dL (9-20); Carbon Dioxide 20 mmol/L (22-30); Chloride 106 mmol/L (98-107); Glucose 165 mg/dL (74-99); Magnesium 1.2 mg/dL (1.6-2.3); Non-African American GFR(CKD) >90 (>60 ml/min/1.73 sqM); Sodium 141 mmol/L (137-145); Total Protein 3.5 g/dL (6.3-8.2)
[2025-01-02 07:00] LABS: Calcium 5.6 mg/dL (8.4-10.2); Potassium 2.6 mmol/L (3.5-5.1)
[2025-01-02 07:03] LABS: ALT 29 U/L (4-49)
[2025-01-02] MEDS ORDERED: Potassium Replacement Protocol 1 EACH MISC MISCELLANE PRN (07:03)
[2025-01-02] MEDS: LACTATED RINGERS 1,000 ML IV ONE (07:17)
--- NOTE | 2025-01-02 07:32 | XR ---
EXAMINATION TYPE: XR chest 1V portable DATE OF EXAM: 01/02/2025 5:48 AM COMPARISON: Chest radiographs from 01/02/2025. CLINICAL INDICATION: Male, 44 years old with history of Tube placement; [facility] TECHNIQUE: XR chest 1V portable Frontal view of the chest. FINDINGS: Lungs/Pleura: Improved aeration of lungs on today's exam with persistent airspace opacities scattered throughout the lungs. No evidence of pneumothorax or large pleural effusion. Pulmonary vascularity: Pulmonary vascular congestion. Heart/mediastinum: Cardiomediastinal silhouette is enlarged. Musculoskeletal: No acute osseous pathology. Right central venous catheter in appropriate position. Endotracheal tube above the yoli, overlappin g electronic devices limit evaluation.. Nasogastric tube in high position. IMPRESSION: 1. slightly improved aeration with persistent multifocal airspace opacities correlate for pulmonary edema. 2. Nasogastric side port in the distal esophagus. Consider advancement of the nasal gastric tube up to 10 cm for optimal placement. [facility], , 01/02/2025 7:30 AM
[2025-01-02] MEDS: POTASSIUM BICARBONATE/CIT AC 20 MEQ TABLET.EFF NG-TUBE SCH ×3 (08:30→22:31)
[2025-01-02] MEDS: MAGNESIUM SULFATE-D5W PMX 1 GM in DEXTROSE/WATER 1 100ML.BAG IVPB SCH (08:30)
[2025-01-02] MEDS: CHLORHEXIDINE GLUCONATE 15 ML CUP MUCOUS MEM SCH (08:46)
[2025-01-02] MEDS: VANCOMYCIN 1,000 MG in SODIUM CHLORIDE 0.9% 250 ML IVPB SCH (09:31)
[2025-01-02] MEDS: CISATRACURIUM 2 MG/ML 5 ML VIAL IV ONE (09:41)
--- NOTE | 2025-01-02 10:05 | P.PN ---
Subjective Progress Note Date: 01/02/25 Patient had a cardiac arrest event last night. He is currently in ICU intubated. There is no surgical invention planned. Objective - Vital Signs Vital signs: Vital Signs Temp 95.0 F L 01/02/25 08:00 Pulse 89 01/02/25 08:45 Resp 9 L 01/02/25 08:45 BP 112/79 01/02/25 08:45 Pulse Ox 82 L 01/02/25 08:45 FiO2 100 01/02/25 08:00 Intake & Output 01/01/25 01/02/25 01/02/25 18:59 06:59 18:59 Intake Total 1330 4272.612 476.857 Output Total 1150 810 20 Balance 180 3462.612 456.857 Weight 56.7 kg Intake: IV 750 250 Dextrose 5% in Water 1, 150 000 ml @ 150 mls/hr IV . Q7H40M VLAD with Sodium Bicarb (1 Meq/ml) 150 ml Rx#:[id number] Sodium Chloride 0.9% 1, 750 000 ml @ 75 mls/hr IV . [id number] VLAD Rx#:[id number] metroNIDAZOLE-NS PMX 500 100 mg In Saline 1 100ml.bag @ 100 mls/hr IVPB Q8HR LVAD Rx#:[id number] Intake, IV Titration 400 4272.612 226.857 Amount Dextrose 5% in Water 1, 1050 150 000 ml @ 150 mls/hr IV . Q7H40M VLAD with Sodium Bicarb (1 Meq/ml) 150 ml Rx#:[id number] Lactated Ringers 1,000 ml 1000 @ 999 mls/hr IV .Q1H1M ONE Rx#:[id number] Midazolam HCl 50 mg In 0.8 Sodium Chloride 0.9% 40 ml @ 1 MG/HR 1 mls/hr IV .Q24H VLAD Rx#:[id number] Piperacillin-Tazobactam 3 200 100 .375 gm In Sodium Chloride 0.9% 100 ml @ 25 mls/hr IVPB Q8HR VLAD Rx# :[id number] Sodium Chloride 0.9% 1, 1000 000 ml @ 999 mls/hr IV . Q1H1M ONE Rx#:[id number] Sodium Chloride 0.9% 1, 1000 000 ml @ 999 mls/hr IV . Q1H1M ONE Rx#:[id number] fentaNYL (PF). 1,000 mcg 25.093 In Sodium Chloride 0.9% 80 ml @ 0.5 MCG/KG/HR 2. 66 mls/hr IV .Q24H [facility] Rx #:[id number] metroNIDAZOLE-NS PMX 500 200 100 mg In Saline 1 100ml.bag @ 100 mls/hr IVPB Q8HR [facility] Rx#:[id number] propofoL 1,000 mg In 21.812 51.764 Empty Bag 1 bag @ 15 MCG/ KG/MIN 4.788 mls/hr IV . [id number] [facility] Rx#:[id number] Oral 180 Output: Chest Tube Drainage 350 Thora-Vent Left Anterior 350 Chest Urine 1150 460 20 Other: Voiding Method Indwelling Catheter - Labs CBC & Chem 7: 01/02/25 06:03 01/02/25 06:03 Labs: Abnormal Lab Results - Last 24 Hours (Table) 01/01/25 01/01/25 01/01/25 Range/Units 11:22 16:26 19:58 WBC (4.50-10.00) 10*3/uL RBC (4.40-5.60) 10*6/uL Hgb (13.0-17.0) g/dL Hct (39.6-50.0) % MCV (80.0-97.0) fL MCHC (32.0-37.0) g/dL Plt Count (140-440) 10*3/uL Immature Gran # (0.00-0.04) 10*3/uL Neutrophils # (1.80-7.70) 10*3/uL Eosinophils # (0.04-0.35) 10*3/uL PT (10.0-12.5) sec INR (<1.2) APTT (22.0-30.0) sec ABG pH (7.35-7.45) ABG pCO2 (35-45) mmHg ABG pO2 (83-108) mmHg ABG HCO3 (21-25) mmol/L ABG Total CO2 (19-24) mmol/L ABG O2 Saturation (94-97) % Hemoglobin (13.0-17.5) gm/dL Potassium (3.5-5.1) mmol/L Carbon Dioxide (22-30) mmol/L BUN (9-20) mg/dL Creatinine (0.66-1.25) mg/dL Glucose (74-99) mg/dL POC Glucose (mg/dL) 172 H 211 H 187 H (70-110) mg/dL Plasma Lactic Acid Sina (0.7-2.0) mmol/L Calcium (8.4-10.2) mg/dL Magnesium (1.6-2.3) mg/dL AST (17-59) U/L Alkaline Phosphatase (38-126) U/L Troponin I (0.000-0.034) ng/mL Total Protein (6.3-8.2) g/dL Albumin (3.5-5.0) g/dL 01/01/25 01/01/25 01/01/25 Range/Units 22:48 23:05 23:21 WBC (4.50-10.00) 10*3/uL RBC (4.40-5.60) 10*6/uL Hgb (13.0-17.0) g/dL Hct (39.6-50.0) % MCV (80.0-97.0) fL MCHC (32.0-37.0) g/dL Plt Count (140-440) 10*3/uL Immature Gran # (0.00-0.04) 10*3/uL Neutrophils # (1.80-7.70) 10*3/uL Eosinophils # (0.04-0.35) 10*3/uL PT (10.0-12.5) sec INR (<1.2) APTT (22.0-30.0) sec ABG pH 6.99 L* (7.35-7.45) ABG pCO2 48 H (35-45) mmHg ABG pO2 60 L (83-108) mmHg ABG HCO3 12 L (21-25) mmol/L ABG Total CO2 13 L (19-24) mmol/L ABG O2 Saturation 70.2 L (94-97) % Hemoglobin 8.6 L (13.0-17.5) gm/dL Potassium (3.5-5.1) mmol/L Carbon Dioxide (22-30) mmol/L BUN (9-20) mg/dL Creatinine (0.66-1.25) mg/dL Glucose (74-99) mg/dL POC Glucose (mg/dL) 166 H 192 H (70-110) mg/dL Plasma Lactic Acid Sina (0.7-2.0) mmol/L Calcium (8.4-10.2) mg/dL Magnesium (1.6-2.3) mg/dL AST (17-59) U/L Alkaline Phosphatase (38-126) U/L Troponin I (0.000-0.034) ng/mL Total Protein (6.3-8.2) g/dL Albumin (3.5-5.0) g/dL 01/01/25 01/01/25 01/01/25 Range/Units 23:29 23:29 23:29 WBC 28.92 H (4.50-10.00) 10*3/uL RBC 2.75 L (4.40-5.60) 10*6/uL Hgb 8.4 L (13.0-17.0) g/dL Hct 27.3 L (39.6-50.0) % MCV 99.3 H D (80.0-97.0) fL MCHC 30.8 L (32.0-37.0) g/dL Plt Count 479 H (140-440) 10*3/uL Immature Gran # (0.00-0.04) 10*3/uL Neutrophils # (1.80-7.70) 10*3/uL Eosinophils # (0.04-0.35) 10*3/uL PT 19.3 H (10.0-12.5) sec INR 1.9 H (<1.2) APTT 35.3 H (22.0-30.0) sec ABG pH (7.35-7.45) ABG pCO2 (35-45) mmHg ABG pO2 (83-108) mmHg ABG HCO3 (21-25) mmol/L ABG Total CO2 (19-24) mmol/L ABG O2 Saturation (94-97) % Hemoglobin (13.0-17.5) gm/dL Potassium 3.3 L (3.5-5.1) mmol/L Carbon Dioxide 8 L* (22-30) mmol/L BUN <2 L (9-20) mg/dL Creatinine 0.38 L (0.66-1.25) mg/dL Glucose 150 H (74-99) mg/dL POC Glucose (mg/dL) (70-110) mg/dL Plasma Lactic Acid Sina (0.7-2.0) mmol/L Calcium 6.7 L (8.4-10.2) mg/dL Magnesium (1.6-2.3) mg/dL AST 87 H (17-59) U/L Alkaline Phosphatase 257 H (38-126) U/L Troponin I (0.000-0.034) ng/mL Total Protein 4.6 L (6.3-8.2) g/dL Albumin 1.9 L (3.5-5.0) g/dL 01/01/25 01/02/25 01/02/25 Range/Units 23:29 02:30 06:03 WBC 27.20 H (4.50-10.00) 10*3/uL RBC 2.27 L (4.40-5.60) 10*6/uL Hgb 6.9 L* D (13.0-17.0) g/dL Hct 21.8 L (39.6-50.0) % MCV (80.0-97.0) fL MCHC 31.7 L (32.0-37.0) g/dL Plt Count (140-440) 10*3/uL Immature Gran # 0.66 H (0.00-0.04) 10*3/uL Neutrophils # 24.22 H (1.80-7.70) 10*3/uL Eosinophils # 0.00 L (0.04-0.35) 10*3/uL PT (10.0-12.5) sec INR (<1.2) APTT (22.0-30.0) sec ABG pH (7.35-7.45) ABG pCO2 (35-45) mmHg ABG pO2 (83-108) mmHg ABG HCO3 (21-25) mmol/L ABG Total CO2 (19-24) mmol/L ABG O2 Saturation (94-97) % Hemoglobin (13.0-17.5) gm/dL Potassium (3.5-5.1) mmol/L Carbon Dioxide (22-30) mmol/L BUN (9-20) mg/dL Creatinine (0.66-1.25) mg/dL Glucose (74-99) mg/dL POC Glucose (mg/dL) (70-110) mg/dL Plasma Lactic Acid Sina 14.8 H* (0.7-2.0) mmol/L Calcium (8.4-10.2) mg/dL Magnesium (1.6-2.3) mg/dL AST (17-59) U/L Alkaline Phosphatase (38-126) U/L Troponin I 0.174 H* (0.000-0.034) ng/mL Total Protein (6.3-8.2) g/dL Albumin (3.5-5.0) g/dL 01/02/25 01/02/25 01/02/25 Range/Units 06:03 06:03 06:15 WBC (4.50-10.00) 10*3/uL RBC (4.40-5.60) 10*6/uL Hgb (13.0-17.0) g/dL Hct (39.6-50.0) % MCV (80.0-97.0) fL MCHC (32.0-37.0) g/dL Plt Count (140-440) 10*3/uL Immature Gran # (0.00-0.04) 10*3/uL Neutrophils # (1.80-7.70) 10*3/uL Eosinophils # (0.04-0.35) 10*3/uL PT (10.0-12.5) sec INR (<1.2) APTT (22.0-30.0) sec ABG pH (7.35-7.45) ABG pCO2 (35-45) mmHg ABG pO2 (83-108) mmHg ABG HCO3 (21-25) mmol/L ABG Total CO2 (19-24) mmol/L ABG O2 Saturation (94-97) % Hemoglobin (13.0-17.5) gm/dL Potassium 2.6 L* (3.5-5.1) mmol/L Carbon Dioxide 20 L (22-30) mmol/L BUN <2 L (9-20) mg/dL Creatinine 0.48 L (0.66-1.25) mg/dL Glucose 165 H (74-99) mg/dL POC Glucose (mg/dL) 193 H (70-110) mg/dL Plasma Lactic Acid Sina 11.7 H* (0.7-2.0) mmol/L Calcium 5.6 L* (8.4-10.2) mg/dL Magnesium 1.2 L (1.6-2.3) mg/dL AST 99 H (17-59) U/L Alkaline Phosphatase 183 H (38-126) U/L Troponin I (0.000-0.034) ng/mL Total Protein 3.5 L (6.3-8.2) g/dL Albumin 1.4 L (3.5-5.0) g/dL Microbiology - Last 24 Hours (Table) 12/31/24 09:04 Gram Stain - Preliminary Sputum Sputum Culture - Preliminary
[2025-01-02 10:25] LABS: ABG HCO3 26 mmol/L (21-25); ABG PCO2 45 mmHg (35-45); ABG PH 7.37 (7.35-7.45); ABG PO2 66 mmHg (83-108); ABG TCO2 28 mmol/L (19-24)
--- NOTE | 2025-01-02 10:33 | PCN ---
PROCEDURE NOTE PROCEDURE: Left radial artery line. PREOPERATIVE DIAGNOSIS: Frequent blood draws and blood gas monitoring. POSTOPERATIVE DIAGNOSIS: Frequent blood draws and blood gas monitoring. There was informed consent, universal timeout. ANOTHER ASSISTING PHYSICIAN: Dr. Stan Baca. ARTERIAL LINE PLACEMENT: Indications: Hemodynamic monitoring. A time-out was completed verifying correct patient, procedure, site, positioning, and implant(s) or special equipment if applicable. Benjamin's test was performed to ensure adequate perfusion. The patient's right/left wrist or right/left groin was prepped and draped in sterile fashion. 1% Lidocaine was used to anesthetize the area. An 18G Arrow arterial line was introduced into the radial/femoral artery. The catheter was threaded over the guide wire and the needle was removed with appropriate pulsatile blood return. Blood loss was minimal. The catheter was then sutured in place to the skin and a sterile dressing applied. Perfusion to the extremity distal to the point of catheter insertion was checked and found to be adequate. The patient tolerated the procedure well and there were no complications. There was good waveform and blood pressure reading. The catheter was sutured in place and sterile dressing was applied by the nurse. There was no immediate complication. MMODL / IJN: [id number] /
[2025-01-02 10:36] LABS: Allen Test Performed? No
[2025-01-02] MEDS: VASOPRESSIN 60 UNIT in SODIUM CHLORIDE 0.9% 150 ML IV SCH (11:03)
[2025-01-02] MEDS: CALCIUM GLUCONATE IN NACL 2 GM in SALINE 1 100ML.BAG IVPB ONE (11:06)
--- NOTE | 2025-01-02 11:36 | P.PN ---
Subjective Progress Note Date: 01/02/25 This is a 44-year-old white male brought into the emergency room earlier this morning by EMS with altered mental status and seizure-like activity. Apparently the patient is known to have past medical history of alcohol use, chronic pancreatitis, pancreatic pseudocyst, history of hypertension, previous history of TIA, patient had a sudden feeling of dizziness, and asked his roommate to call EMS. Apparently upon arrival of EMS he was found to have seizure-like activity and went unresponsive on the monitor the patient was noted to have ventricular tachycardia, CPR was started and the patient received 1 shock. Patient became conscious again, and his rhythm came back with return of circulation. Apparently for the last few days the patient has been experiencing episodes of nausea and vomiting and episodes of low blood sugar. In addition, patient has been complaining of episodes of diarrhea for the last 2 weeks. Patient normally follows up at [facility] for his pancreatitis and pseudocyst. 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 And has been taking Eliquis until yesterday. Patient drinks occasionally at this point, used to be a heavy drinker in the past. I evaluated the patient in the ER, and considering his cardiac arrest history, I recommended admitting the patient to the ICU, and he is to be seen by other consultants including cardiology. During my evaluation the patient was not in any distress, he was hemodynamically stable, all his labs were reviewed. Patient was seen today on 12/25/2024, remains in the ICU mostly because of his profound electrolyte abnormalities including hypocalcemia, hypomagnesium , hypokalemia, these are all being addressed accordingly mostly related to his GI symptoms and his pancreatitis. As well as diarrhea and nausea and vomiting. Patient is not in any distress, he is on 2 L nasal cannula, has been receiving potassium almost every 2 hours 20 mEq orally remains empirically on Zosyn, continues to have some vague abdominal pain and discomfort. WBC count today is 12.2 hemoglobin 9.5 electrolytes showed low sodium of 131 low potassium 2.9 but few hours later it was up to 3.8 renal functioning is normal calcium is up to 5.8 today. Add magnesium is up to 2.1, these are all being addressed daily. Cardiac sheppard the patient is in sinus rhythm, no further episodes of tachyarrhyt hmia. Seen today on 12/26/2024, patient remains in the ICU, feeling better, he has no active pulmonary symptoms no GI symptoms and no cardiac symptoms. Labs have shown significant improvement his potassium today is 4.5 calcium is up to 6 however his albumin is 1.9 which makes his corrected calcium 7.68., Improved, but not up to 8.4 or higher. Hence would recommend more calcium gluconate to be given for this patient. Magnesium not done today however was 2.1 yesterday. Seen today on 12/27/2024, patient is doing well, asymptomatic. Has some vague abdominal pain no cough no wheezing no shortness of breath no chest pain. No palpitations CBC showed leukocytosis WBC count of 15.9 hemoglobin 8.8. His electrolytes are normal potassium is 3.8 calcium is up to 6.8/uncorrected to albumin. 01/02/25 - He was seen and examined in the ICU, room 258. He was previously seen by pulmonary/critical care up until 12/27/2024, at which time we signed off care. Since that time, on 12/30/2024 he underwent a cardiac catheterization with Dr. Rosario which revealed normal coronary arteries, cardiomyopathy of nonischemic etiology. He was being followed by infectious disease due to possible colitis, and had been placed on antibiotics, general surgery for exploratory laparotomy in regards to cholecystitis and colitis. Late in the evening on 01/01/2025 a CODE BLUE was called in which the patient had diminished breath sounds and was tachypneic. He became bradycardic and then went asystole, at which time CPR was initiated. CODE BLUE as per the event note in the patient's chart. ROSC was achieved with 2 rounds of epinephrine. At that time patient was intubated, transferred to the ICU and initiated on a bicarb drip. He was noted to have pneumothorax of the left lung. He was intubated on 01/01/2025 and has not been mechanically ventilated with a tidal volume 400, respiratory rate 22, FiO2 100% and PEEP of 10. Most recent blood gas showed pO2 66, pCO2 45 and pH 7.37. Most recent labs showed WBCs 27.2, hemoglobin 6.9, hematocrit 21.8, platelet 339; sodium 141, potassium 2.6, bicarb 20, BUN <2, creatinine 0.48, lactic acid 11.7, calcium 5.6, ionized calcium 3.4, magnesium 1.2, total bilirubin 1.2, AST 99, ALT 29, alkaline phosphatase 183, TSH 0.551. He is currently receiving norepinephrine 0.39 mcg/kg/min, and sedated with fentanyl at 1 mcg/kg/h, propofol at 50 mcg/kg/h, and received an additional 10 mg of Nimbex prior to left radial arterial line placement. He continues receiving vancomycin, Zosyn, Flagyl and Diflucan. REVIEW OF SYSTEMS: Pertinent positives and negatives noted in HPI. Physical Exam: General: Toxic in appearance, appears older than stated age; right IJ central venous catheter placed, left radial arterial line in place. Derm: warm, dry, intact Head: atraumatic, normocephalic, symmetric Eyes: Unequal, pinpoint like pupils; right pupil slightly larger than left pupil Mouth: no lip lesion, mucus membranes moist Cardiovascular: S1 S2 reg, no murmur, rubs, or gallops Lungs: Left Thora vent in place Abdominal: soft, non-tender to palpataion, no appreciable organomegaly Extremities: no gross muscle atrophy, no edema, no contractures Neuro: Unable to assess patient is intubated, mechanically ventilated and sedated. Psych: well appearing, appropriate affect Assessment and plan #Cardiac arrest s/p CPR and 2 rounds of epinephrine #Chronic pancreatitis #Chronic GI symptoms #Elevated ammonia level #History of alcohol abuse #History of splenic vein thrombosis, maintained on Eliquis #History of syncope #Chronic diarrhea with multiple electrolyte abnormalities #Hypokalemia #Lactic acidosis #Hypocalcemia #Hypomagnesemia Plan dated January 02, 2025. The patient is seen today in room 258. He remains on mechanical ventilator, settings noted above. Blood gases show pO2 66, pCO2 45, pH is 7.37. He continues on propofol at 50 mcg/kg/min, fentanyl at 1 mcg/kg/h and continues with vancomycin, Zosyn, Flagyl and Diflucan. Tube feeding will be initiated with vital HP, discussed with the addition. Per general surgery plan will be to undergo exploratory laparotomy once the patient is medically stable. His calcium was noted to be 5.6, with an ionized calcium of 3.4, being replaced with 2 g calcium gluconate - will continue to monitor and replace as needed. Magnesium was noted to be 1.2, currently being replaced with 4 g - will continue to monitor and replace as needed. Potassium was noted to be 2.6, currently being replaced as per protocol - will continue to monitor and replace as needed. He continues to be on bicarb drip with 3 mEq in the 150 cc/h of D5W. Hemoglobin was noted to be 6.9, underwent type and screen with PRBCs ordered to be given. Labs, x-rays, and all medications are reviewed. We will continue to follow the patient, make recommendations. Overall prognosis remains guarded. The patient continues on GI and DVT prophylaxis. Dictation was produced using [employer] dictation software. Please excuse any grammatical, word or spelling errors. Code status: Full code Dictation was produced using [employer] dictation software. please excuse any grammatical, word or spelling errors. Stan Baca MD PGY-1 IM Objective - Vital Signs Vital signs: Vital Signs Temp 95.0 F L 01/02/25 08:00 Pulse 87 01/02/25 10:15 Resp 22 01/02/25 10:15 BP 104/76 01/02/25 09:30 Pulse Ox 90 L 01/02/25 10:15 FiO2 100 01/02/25 08:00 Intake & Output 01/01/25 01/02/25 01/02/25 18:59 06:59 18:59 Intake Total 1330 4272.612 1326.857 Output Total 1150 810 145 Balance 180 3462.612 1181.857 Weight 56.7 kg Intake: IV 750 1100 Dextrose 5% in Water 1, 450 000 ml @ 150 mls/hr IV . Q7H40M VLAD with Sodium Bicarb (1 Meq/ml) 150 ml Rx#:[id number] Magnesium Sulfate-D5w Pmx 200 1 gm In Dextrose/Water 1 100ml.bag @ 100 mls/hr IVPB Q1H VLAD Rx#: [id number] Piperacillin-Tazobactam 3 100 .375 gm In Sodium Chloride 0.9% 100 ml @ 25 mls/hr IVPB Q8HR VLAD Rx# :[id number] Sodium Chloride 0.9% 1, 750 000 ml @ 75 mls/hr IV . [id number] VLAD Rx#:[id number] Vancomycin 1,000 mg In 250 Sodium Chloride 0.9% 250 ml @ 125 mls/hr IVPB ONCE ONE Rx#:[id number] metroNIDAZOLE-NS PMX 500 100 mg In Saline 1 100ml.bag @ 100 mls/hr IVPB Q8HR [facility] Rx#:[id number] Intake, IV Titration 400 4272.612 226.857 Amount Dextrose 5% in Water 1, 1050 150 000 ml @ 150 mls/hr IV . Q7H40M VLAD with Sodium Bicarb (1 Meq/ml) 150 ml Rx#:[id number] Lactated Ringers 1,000 ml 1000 @ 999 mls/hr IV .Q1H1M ONE Rx#:[id number] Midazolam HCl 50 mg In 0.8 Sodium Chloride 0.9% 40 ml @ 1 MG/HR 1 mls/hr IV .Q24H [facility] Rx#:[id number] Piperacillin-Tazobactam 3 200 100 .375 gm In Sodium Chloride 0.9% 100 ml @ 25 mls/hr IVPB Q8HR [facility] Rx# :[id number] Sodium Chloride 0.9% 1, 1000 000 ml @ 999 mls/hr IV . Q1H1M ONE Rx#:[id number] Sodium Chloride 0.9% 1, 1000 000 ml @ 999 mls/hr IV . Q1H1M ONE Rx#:[id number] fentaNYL (PF). 1,000 mcg 25.093 In Sodium Chloride 0.9% 80 ml @ 0.5 MCG/KG/HR 2. 66 mls/hr IV .Q24H [facility] Rx #:[id number] metroNIDAZOLE-NS PMX 500 200 100 mg In Saline 1 100ml.bag @ 100 mls/hr IVPB Q8HR [facility] Rx#:[id number] propofoL 1,000 mg In 21.812 51.764 Empty Bag 1 bag @ 15 MCG/ KG/MIN 4.788 mls/hr IV . [id number] [facility] Rx#:[id number] Oral 180 Output: Chest Tube Drainage 350 Thora-Vent Left Anterior 350 Chest Urine 1150 460 145 Other: Voiding Method Indwelling Catheter ABP, PAP, CO, CI - Last Documented Arterial Blood Pressure 82/51 - Labs CBC & Chem 7: 01/02/25 06:03 01/02/25 06:03 Labs: Abnormal Lab Results - Last 24 Hours (Table) 01/01/25 01/01/25 01/01/25 Range/Units 11:22 16:26 19:58 WBC (4.50-10.00) 10*3/uL RBC (4.40-5.60) 10*6/uL Hgb (13.0-17.0) g/dL Hct (39.6-50.0) % MCV (80.0-97.0) fL MCHC (32.0-37.0) g/dL Plt Count (140-440) 10*3/uL Immature Gran # (0.00-0.04) 10*3/uL Neutrophils # (1.80-7.70) 10*3/uL Eosinophils # (0.04-0.35) 10*3/uL PT (10.0-12.5) sec INR (<1.2) APTT (22.0-30.0) sec ABG pH (7.35-7.45) ABG pCO2 (35-45) mmHg ABG pO2 (83-108) mmHg ABG HCO3 (21-25) mmol/L ABG Total CO2 (19-24) mmol/L ABG O2 Saturation (94-97) % Hemoglobin (13.0-17.5) gm/dL Potassium (3.5-5.1) mmol/L Carbon Dioxide (22-30) mmol/L BUN (9-20) mg/dL Creatinine (0.66-1.25) mg/dL Glucose (74-99) mg/dL POC Glucose (mg/dL) 172 H 211 H 187 H (70-110) mg/dL Plasma Lactic Acid Sina (0.7-2.0) mmol/L Calcium (8.4-10.2) mg/dL Magnesium (1.6-2.3) mg/dL AST (17-59) U/L Alkaline Phosphatase (38-126) U/L Troponin I (0.000-0.034) ng/mL Total Protein (6.3-8.2) g/dL Albumin (3.5-5.0) g/dL 01/01/25 01/01/25 01/01/25 Range/Units 22:48 23:05 23:21 WBC (4.50-10.00) 10*3/uL RBC (4.40-5.60) 10*6/uL Hgb (13.0-17.0) g/dL Hct (39.6-50.0) % MCV (80.0-97.0) fL MCHC (32.0-37.0) g/dL Plt Count (140-440) 10*3/uL Immature Gran # (0.00-0.04) 10*3/uL Neutrophils # (1.80-7.70) 10*3/uL Eosinophils # (0.04-0.35) 10*3/uL PT (10.0-12.5) sec INR (<1.2) APTT (22.0-30.0) sec ABG pH 6.99 L* (7.35-7.45) ABG pCO2 48 H (35-45) mmHg ABG pO2 60 L (83-108) mmHg ABG HCO3 12 L (21-25) mmol/L ABG Total CO2 13 L (19-24) mmol/L ABG O2 Saturation 70.2 L (94-97) % Hemoglobin 8.6 L (13.0-17.5) gm/dL Potassium (3.5-5.1) mmol/L Carbon Dioxide (22-30) mmol/L BUN (9-20) mg/dL Creatinine (0.66-1.25) mg/dL Glucose (74-99) mg/dL POC Glucose (mg/dL) 166 H 192 H (70-110) mg/dL Plasma Lactic Acid Sina (0.7-2.0) mmol/L Calcium (8.4-10.2) mg/dL Magnesium (1.6-2.3) mg/dL AST (17-59) U/L Alkaline Phosphatase (38-126) U/L Troponin I (0.000-0.034) ng/mL Total Protein (6.3-8.2) g/dL Albumin (3.5-5.0) g/dL 01/01/25 01/01/25 01/01/25 Range/Units 23:29 23:29 23:29 WBC 28.92 H (4.50-10.00) 10*3/uL RBC 2.75 L (4.40-5.60) 10*6/uL Hgb 8.4 L (13.0-17.0) g/dL Hct 27.3 L (39.6-50.0) % MCV 99.3 H D (80.0-97.0) fL MCHC 30.8 L (32.0-37.0) g/dL Plt Count 479 H (140-440) 10*3/uL Immature Gran # (0.00-0.04) 10*3/uL Neutrophils # (1.80-7.70) 10*3/uL Eosinophils # (0.04-0.35) 10*3/uL PT 19.3 H (10.0-12.5) sec INR 1.9 H (<1.2) APTT 35.3 H (22.0-30.0) sec ABG pH (7.35-7.45) ABG pCO2 (35-45) mmHg ABG pO2 (83-108) mmHg ABG HCO3 (21-25) mmol/L ABG Total CO2 (19-24) mmol/L ABG O2 Saturation (94-97) % Hemoglobin (13.0-17.5) gm/dL Potassium 3.3 L (3.5-5.1) mmol/L Carbon Dioxide 8 L* (22-30) mmol/L BUN <2 L (9-20) mg/dL Creatinine 0.38 L (0.66-1.25) mg/dL Glucose 150 H (74-99) mg/dL POC Glucose (mg/dL) (70-110) mg/dL Plasma Lactic Acid Sina (0.7-2.0) mmol/L Calcium 6.7 L (8.4-10.2) mg/dL Magnesium (1.6-2.3) mg/dL AST 87 H (17-59) U/L Alkaline Phosphatase 257 H (38-126) U/L Troponin I (0.000-0.034) ng/mL Total Protein 4.6 L (6.3-8.2) g/dL Albumin 1.9 L (3.5-5.0) g/dL 01/01/25 01/02/25 01/02/25 Range/Units 23:29 02:30 06:03 WBC 27.20 H (4.50-10.00) 10*3/uL RBC 2.27 L (4.40-5.60) 10*6/uL Hgb 6.9 L* D (13.0-17.0) g/dL Hct 21.8 L (39.6-50.0) % MCV (80.0-97.0) fL MCHC 31.7 L (32.0-37.0) g/dL Plt Count (140-440) 10*3/uL Immature Gran # 0.66 H (0.00-0.04) 10*3/uL Neutrophils # 24.22 H (1.80-7.70) 10*3/uL Eosinophils # 0.00 L (0.04-0.35) 10*3/uL PT (10.0-12.5) sec INR (<1.2) APTT (22.0-30.0) sec ABG pH (7.35-7.45) ABG pCO2 (35-45) mmHg ABG pO2 (83-108) mmHg ABG HCO3 (21-25) mmol/L ABG Total CO2 (19-24) mmol/L ABG O2 Saturation (94-97) % Hemoglobin (13.0-17.5) gm/dL Potassium (3.5-5.1) mmol/L Carbon Dioxide (22-30) mmol/L BUN (9-20) mg/dL Creatinine (0.66-1.25) mg/dL Glucose (74-99) mg/dL POC Glucose (mg/dL) (70-110) mg/dL Plasma Lactic Acid Sina 14.8 H* (0.7-2.0) mmol/L Calcium (8.4-10.2) mg/dL Magnesium (1.6-2.3) mg/dL AST (17-59) U/L Alkaline Phosphatase (38-126) U/L Troponin I 0.174 H* (0.000-0.034) ng/mL Total Protein (6.3-8.2) g/dL Albumin (3.5-5.0) g/dL 01/02/25 01/02/25 01/02/25 Range/Units 06:03 06:03 06:15 WBC (4.50-10.00) 10*3/uL RBC (4.40-5.60) 10*6/uL Hgb (13.0-17.0) g/dL Hct (39.6-50.0) % MCV (80.0-97.0) fL MCHC (32.0-37.0) g/dL Plt Count (140-440) 10*3/uL Immature Gran # (0.00-0.04) 10*3/uL Neutrophils # (1.80-7.70) 10*3/uL Eosinophils # (0.04-0.35) 10*3/uL PT (10.0-12.5) sec INR (<1.2) APTT (22.0-30.0) sec ABG pH (7.35-7.45) ABG pCO2 (35-45) mmHg ABG pO2 (83-108) mmHg ABG HCO3 (21-25) mmol/L ABG Total CO2 (19-24) mmol/L ABG O2 Saturation (94-97) % Hemoglobin (13.0-17.5) gm/dL Potassium 2.6 L* (3.5-5.1) mmol/L Carbon Dioxide 20 L (22-30) mmol/L BUN <2 L (9-20) mg/dL Creatinine 0.48 L (0.66-1.25) mg/dL Glucose 165 H (74-99) mg/dL POC Glucose (mg/dL) 193 H (70-110) mg/dL Plasma Lactic Acid Sina 11.7 H* (0.7-2.0) mmol/L Calcium 5.6 L* (8.4-10.2) mg/dL Magnesium 1.2 L (1.6-2.3) mg/dL AST 99 H (17-59) U/L Alkaline Phosphatase 183 H (38-126) U/L Troponin I (0.000-0.034) ng/mL Total Protein 3.5 L (6.3-8.2) g/dL Albumin 1.4 L (3.5-5.0) g/dL 01/02/25 Range/Units 10:22 WBC (4.50-10.00) 10*3/uL RBC (4.40-5.60) 10*6/uL Hgb (13.0-17.0) g/dL Hct (39.6-50.0) % MCV (80.0-97.0) fL MCHC (32.0-37.0) g/dL Plt Count (140-440) 10*3/uL Immature Gran # (0.00-0.04) 10*3/uL Neutrophils # (1.80-7.70) 10*3/uL Eosinophils # (0.04-0.35) 10*3/uL PT (10.0-12.5) sec INR (<1.2) APTT (22.0-30.0) sec ABG pH (7.35-7.45) ABG pCO2 (35-45) mmHg ABG pO2 66 L (83-108) mmHg ABG HCO3 26 H (21-25) mmol/L ABG Total CO2 28 H (19-24) mmol/L ABG O2 Saturation 91.7 L (94-97) % Hemoglobin 7.5 L (13.0-17.5) gm/dL Potassium (3.5-5.1) mmol/L Carbon Dioxide (22-30) mmol/L BUN (9-20) mg/dL Creatinine (0.66-1.25) mg/dL Glucose (74-99) mg/dL POC Glucose (mg/dL) (70-110) mg/dL Plasma Lactic Acid Sina (0.7-2.0) mmol/L Calcium (8.4-10.2) mg/dL Magnesium (1.6-2.3) mg/dL AST (17-59) U/L Alkaline Phosphatase (38-126) U/L Troponin I (0.000-0.034) ng/mL Total Protein (6.3-8.2) g/dL Albumin (3.5-5.0) g/dL Microbiology - Last 24 Hours (Table) 12/31/24 09:04 Gram Stain - Preliminary Sputum Sputum Culture - Preliminary
[2025-01-02 11:51] LABS: Glucose,Whole Blood 311 mg/dL (70-110)
[2025-01-02] MEDS ORDERED: DEXTROSE 50% SYRINGE 50 ML IVP PRN (11:51)
[2025-01-02] MEDS: INSULIN LISPRO (HumaLOG) 100 UNIT/ML 10 mL VL SQ SCH ×2 (12:14→18:25)
--- NOTE | 2025-01-02 12:48 | PN ---
PROGRESS NOTE FOLLOWUP NOTE SUBJECTIVE: A 44-year-old gentleman who is admitted to hospital with history of alcohol abuse, runs of ventricular tachycardia for which he needed brief CPR and had cardiomyopathy with severe LV dysfunction. The patient underwent cardiac catheterization that did not reveal significant obstructive CAD and he had a LifeVest. We arranged for a LifeVest and the plan was to follow him up and treat him for his cardiomyopathy and if the LV function does not improve, consider AICD. The patient also had cholecystitis and possible aspiration pneumonia, developed worsening shortness of breath yesterday with evidence of pulmonary congestion. I started him on Lasix 40 b.i.d. in the morning. Later in the day, he had a cardiac arrest with asystole and was resuscitated, intubated and currently on vent. He is in the ICU, profoundly hypotensive and oxygenating very poorly. His FiO2 was in the 30s and 40s for quite some time yesterday. This morning, he is intubated, sedated on the vent. PHYSICAL EXAMINATION: VITAL SIGNS: Heart rate is 70 beats per minute, blood pressure is 82/50, and respiratory rate 18. CHEST: Reveals diminished air entry at the bases. HEART: Reveals first and second heart sounds. No gallop. No murmur. ABDOMEN: Soft. EXTREMITIES: Examination of the extremities reveals very mild bilaterally. LABORATORY DATA: . ASSESSMENT: 1. Status post cardiac arrest. 2. . 3. Cardiomyopathy with severe LV disease. 4. History of alcohol abuse. 5. Possible aspiration pneumonia. PLAN: The patient's prognosis is poor. Continue with the current supportive care. MMODL / IJN: [id number] /
--- NOTE | 2025-01-02 15:09 | P.PN ---
Subjective Progress Note Date: 01/02/25 Principal diagnosis: Reason for follow-up is pneumonia/colitis Patient is a 44-year-old male with a past medical history significant for CVA TIA reflux history of recurrent/chronic pancreatitis from alcoholism and hypertension patient was brought into the hospital for lethargy seizure activity did have a cardiac arrest/V. tach requiring shock and subsequent admitted to the hospital.Patient did have a cardiac arrest last night patient is status post resuscitation intubation and transfer the ICU also have a right-sided pneumothorax. On today's visit that is 01/02/2025, the patient is afebrile remains to be intubated on the vent currently requiring 100% FiO2 patient is requiring pressor support to maintain his blood pressure no other changes reported by the nursing staff. Patient white count is 27.20 hemoglobin of 6.9 creatinine 0.48 stool for C. difficile negative Objective - Vital Signs Vital signs: Vital Signs Temp 96.3 F L 01/02/25 13:26 Pulse 81 01/02/25 13:45 Resp 22 01/02/25 13:45 BP 120/69 01/02/25 13:26 Pulse Ox 93 L 01/02/25 13:45 FiO2 100 01/02/25 12:30 Intake & Output 01/01/25 01/02/25 01/02/25 18:59 06:59 18:59 Intake Total 1330 4272.612 2033.175 Output Total 1150 810 345 Balance 180 3462.612 1688.175 Weight 56.7 kg 56.7 kg Intake: IV 750 1600 Calcium Gluconate in NaCl 100 2 gm In Saline 1 100ml. bag @ 100 mls/hr IVPB ONCE ONE Rx#:[id number] Dextrose 5% in Water 1, 750 000 ml @ 150 mls/hr IV . Q7H40M VLAD with Sodium Bicarb (1 Meq/ml) 150 ml Rx#:[id number] Magnesium Sulfate-D5w Pmx 300 1 gm In Dextrose/Water 1 100ml.bag @ 100 mls/hr IVPB Q1H VLAD Rx#: [id number] Piperacillin-Tazobactam 3 100 .375 gm In Sodium Chloride 0.9% 100 ml @ 25 mls/hr IVPB Q8HR VLAD Rx# :[id number] Sodium Chloride 0.9% 1, 750 000 ml @ 75 mls/hr IV . [id number] [facility] Rx#:[id number] Vancomycin 1,000 mg In 250 Sodium Chloride 0.9% 250 ml @ 125 mls/hr IVPB ONCE ONE Rx#:[id number] metroNIDAZOLE-NS PMX 500 100 mg In Saline 1 100ml.bag @ 100 mls/hr IVPB Q8HR [facility] Rx#:[id number] Intake, IV Titration 400 4272.612 433.175 Amount Dextrose 5% in Water 1, 1050 150 000 ml @ 150 mls/hr IV . Q7H40M VLAD with Sodium Bicarb (1 Meq/ml) 150 ml Rx#:[id number] Lactated Ringers 1,000 ml 1000 @ 999 mls/hr IV .Q1H1M ONE Rx#:[id number] Midazolam HCl 50 mg In 0.8 Sodium Chloride 0.9% 40 ml @ 1 MG/HR 1 mls/hr IV .Q24H [facility] Rx#:[id number] Norepinephrine 8 mg In 206.318 Sodium Chloride 0.9% 250 ml @ 0.03 MCG/KG/MIN 3. 291 mls/hr IV .Q24H [facility] Rx#:[id number] Piperacillin-Tazobactam 3 200 100 .375 gm In Sodium Chloride 0.9% 100 ml @ 25 mls/hr IVPB Q8HR [facility] Rx# :[id number] Sodium Chloride 0.9% 1, 1000 000 ml @ 999 mls/hr IV . Q1H1M ONE Rx#:[id number] Sodium Chloride 0.9% 1, 1000 000 ml @ 999 mls/hr IV . Q1H1M [facility] Rx#:[id number] fentaNYL (PF). 1,000 mcg 25.093 In Sodium Chloride 0.9% 80 ml @ 0.5 MCG/KG/HR 2. 66 mls/hr IV .Q24H [facility] Rx #:[id number] metroNIDAZOLE-NS PMX 500 200 100 mg In Saline 1 100ml.bag @ 100 mls/hr IVPB Q8HR [facility] Rx#:[id number] propofoL 1,000 mg In 21.812 51.764 Empty Bag 1 bag @ 15 MCG/ KG/MIN 4.788 mls/hr IV . [id number] [facility] Rx#:[id number] Oral 180 Blood Product 0 Unit 0 Output: Chest Tube Drainage 350 Thora-Vent Left Anterior 350 Chest Urine 1150 460 345 Other: Voiding Method Indwelling Catheter Indwelling Catheter ABP, PAP, CO, CI - Last Documented Arterial Blood Pressure 113/72 - Exam GENERAL DESCRIPTION: Middle-age male intubated on the vent RESPIRATORY SYSTEM: Unlabored breathing , decreased breath sounds at bases HEART: S1 S2 regular rate and rhythm , ABDOMEN: Soft , no tenderness EXTREMITIES: No edema feet - Labs CBC & Chem 7: 01/02/25 06:03 01/02/25 13:53 Labs: Abnormal Lab Results - Last 24 Hours (Table) 01/01/25 01/01/25 01/01/25 Range/Units 16:26 19:58 22:48 WBC (4.50-10.00) 10*3/uL RBC (4.40-5.60) 10*6/uL Hgb (13.0-17.0) g/dL Hct (39.6-50.0) % MCV (80.0-97.0) fL MCHC (32.0-37.0) g/dL Plt Count (140-440) 10*3/uL Immature Gran # (0.00-0.04) 10*3/uL Neutrophils # (1.80-7.70) 10*3/uL Eosinophils # (0.04-0.35) 10*3/uL PT (10.0-12.5) sec INR (<1.2) APTT (22.0-30.0) sec ABG pH (7.35-7.45) ABG pCO2 (35-45) mmHg ABG pO2 (83-108) mmHg ABG HCO3 (21-25) mmol/L ABG Total CO2 (19-24) mmol/L ABG O2 Saturation (94-97) % Hemoglobin (13.0-17.5) gm/dL Potassium (3.5-5.1) mmol/L Carbon Dioxide (22-30) mmol/L BUN (9-20) mg/dL Creatinine (0.66-1.25) mg/dL Glucose (74-99) mg/dL POC Glucose (mg/dL) 211 H 187 H 166 H (70-110) mg/dL Plasma Lactic Acid Sina (0.7-2.0) mmol/L Calcium (8.4-10.2) mg/dL Ionized Calcium Cisco (4.5-5.3) mg/dL Magnesium (1.6-2.3) mg/dL AST (17-59) U/L Alkaline Phosphatase (38-126) U/L Troponin I (0.000-0.034) ng/mL Total Protein (6.3-8.2) g/dL Albumin (3.5-5.0) g/dL Crossmatch 01/01/25 01/01/25 01/01/25 Range/Units 23:05 23:21 23:29 WBC (4.50-10.00) 10*3/uL RBC (4.40-5.60) 10*6/uL Hgb (13.0-17.0) g/dL Hct (39.6-50.0) % MCV (80.0-97.0) fL MCHC (32.0-37.0) g/dL Plt Count (140-440) 10*3/uL Immature Gran # (0.00-0.04) 10*3/uL Neutrophils # (1.80-7.70) 10*3/uL Eosinophils # (0.04-0.35) 10*3/uL PT (10.0-12.5) sec INR (<1.2) APTT (22.0-30.0) sec ABG pH 6.99 L* (7.35-7.45) ABG pCO2 48 H (35-45) mmHg ABG pO2 60 L (83-108) mmHg ABG HCO3 12 L (21-25) mmol/L ABG Total CO2 13 L (19-24) mmol/L ABG O2 Saturation 70.2 L (94-97) % Hemoglobin 8.6 L (13.0-17.5) gm/dL Potassium 3.3 L (3.5-5.1) mmol/L Carbon Dioxide 8 L* (22-30) mmol/L BUN <2 L (9-20) mg/dL Creatinine 0.38 L (0.66-1.25) mg/dL Glucose 150 H (74-99) mg/dL POC Glucose (mg/dL) 192 H (70-110) mg/dL Plasma Lactic Acid Sina (0.7-2.0) mmol/L Calcium 6.7 L (8.4-10.2) mg/dL Ionized Calcium Cisco (4.5-5.3) mg/dL Magnesium (1.6-2.3) mg/dL AST 87 H (17-59) U/L Alkaline Phosphatase 257 H (38-126) U/L Troponin I (0.000-0.034) ng/mL Total Protein 4.6 L (6.3-8.2) g/dL Albumin 1.9 L (3.5-5.0) g/dL Crossmatch 01/01/25 01/01/25 01/01/25 Range/Units 23:29 23:29 23:29 WBC 28.92 H (4.50-10.00) 10*3/uL RBC 2.75 L (4.40-5.60) 10*6/uL Hgb 8.4 L (13.0-17.0) g/dL Hct 27.3 L (39.6-50.0) % MCV 99.3 H D (80.0-97.0) fL MCHC 30.8 L (32.0-37.0) g/dL Plt Count 479 H (140-440) 10*3/uL Immature Gran # (0.00-0.04) 10*3/uL Neutrophils # (1.80-7.70) 10*3/uL Eosinophils # (0.04-0.35) 10*3/uL PT 19.3 H (10.0-12.5) sec INR 1.9 H (<1.2) APTT 35.3 H (22.0-30.0) sec ABG pH (7.35-7.45) ABG pCO2 (35-45) mmHg ABG pO2 (83-108) mmHg ABG HCO3 (21-25) mmol/L ABG Total CO2 (19-24) mmol/L ABG O2 Saturation (94-97) % Hemoglobin (13.0-17.5) gm/dL Potassium (3.5-5.1) mmol/L Carbon Dioxide (22-30) mmol/L BUN (9-20) mg/dL Creatinine (0.66-1.25) mg/dL Glucose (74-99) mg/dL POC Glucose (mg/dL) (70-110) mg/dL Plasma Lactic Acid Sina (0.7-2.0) mmol/L Calcium (8.4-10.2) mg/dL Ionized Calcium Cisco (4.5-5.3) mg/dL Magnesium (1.6-2.3) mg/dL AST (17-59) U/L Alkaline Phosphatase (38-126) U/L Troponin I 0.174 H* (0.000-0.034) ng/mL Total Protein (6.3-8.2) g/dL Albumin (3.5-5.0) g/dL Crossmatch 01/02/25 01/02/25 01/02/25 Range/Units 02:30 06:03 06:03 WBC 27.20 H (4.50-10.00) 10*3/uL RBC 2.27 L (4.40-5.60) 10*6/uL Hgb 6.9 L* D (13.0-17.0) g/dL Hct 21.8 L (39.6-50.0) % MCV (80.0-97.0) fL MCHC 31.7 L (32.0-37.0) g/dL Plt Count (140-440) 10*3/uL Immature Gran # 0.66 H (0.00-0.04) 10*3/uL Neutrophils # 24.22 H (1.80-7.70) 10*3/uL Eosinophils # 0.00 L (0.04-0.35) 10*3/uL PT (10.0-12.5) sec INR (<1.2) APTT (22.0-30.0) sec ABG pH (7.35-7.45) ABG pCO2 (35-45) mmHg ABG pO2 (83-108) mmHg ABG HCO3 (21-25) mmol/L ABG Total CO2 (19-24) mmol/L ABG O2 Saturation (94-97) % Hemoglobin (13.0-17.5) gm/dL Potassium 2.6 L* (3.5-5.1) mmol/L Carbon Dioxide 20 L (22-30) mmol/L BUN <2 L (9-20) mg/dL Creatinine 0.48 L (0.66-1.25) mg/dL Glucose 165 H (74-99) mg/dL POC Glucose (mg/dL) (70-110) mg/dL Plasma Lactic Acid Sina 14.8 H* (0.7-2.0) mmol/L Calcium 5.6 L* (8.4-10.2) mg/dL Ionized Calcium Cisco (4.5-5.3) mg/dL Magnesium 1.2 L (1.6-2.3) mg/dL AST 99 H (17-59) U/L Alkaline Phosphatase 183 H (38-126) U/L Troponin I (0.000-0.034) ng/mL Total Protein 3.5 L (6.3-8.2) g/dL Albumin 1.4 L (3.5-5.0) g/dL Crossmatch 01/02/25 01/02/25 01/02/25 Range/Units 06:03 06:15 10:17 WBC (4.50-10.00) 10*3/uL RBC (4.40-5.60) 10*6/uL Hgb (13.0-17.0) g/dL Hct (39.6-50.0) % MCV (80.0-97.0) fL MCHC (32.0-37.0) g/dL Plt Count (140-440) 10*3/uL Immature Gran # (0.00-0.04) 10*3/uL Neutrophils # (1.80-7.70) 10*3/uL Eosinophils # (0.04-0.35) 10*3/uL PT (10.0-12.5) sec INR (<1.2) APTT (22.0-30.0) sec ABG pH (7.35-7.45) ABG pCO2 (35-45) mmHg ABG pO2 (83-108) mmHg ABG HCO3 (21-25) mmol/L ABG Total CO2 (19-24) mmol/L ABG O2 Saturation (94-97) % Hemoglobin (13.0-17.5) gm/dL Potassium (3.5-5.1) mmol/L Carbon Dioxide (22-30) mmol/L BUN (9-20) mg/dL Creatinine (0.66-1.25) mg/dL Glucose (74-99) mg/dL POC Glucose (mg/dL) 193 H (70-110) mg/dL Plasma Lactic Acid Sina 11.7 H* (0.7-2.0) mmol/L Calcium (8.4-10.2) mg/dL Ionized Calcium Cisco 3.4 L* (4.5-5.3) mg/dL Magnesium (1.6-2.3) mg/dL AST (17-59) U/L Alkaline Phosphatase (38-126) U/L Troponin I (0.000-0.034) ng/mL Total Protein (6.3-8.2) g/dL Albumin (3.5-5.0) g/dL Crossmatch 01/02/25 01/02/25 01/02/25 Range/Units 10:17 10:22 10:30 WBC (4.50-10.00) 10*3/uL RBC (4.40-5.60) 10*6/uL Hgb (13.0-17.0) g/dL Hct (39.6-50.0) % MCV (80.0-97.0) fL MCHC (32.0-37.0) g/dL Plt Count (140-440) 10*3/uL Immature Gran # (0.00-0.04) 10*3/uL Neutrophils # (1.80-7.70) 10*3/uL Eosinophils # (0.04-0.35) 10*3/uL PT (10.0-12.5) sec INR (<1.2) APTT (22.0-30.0) sec ABG pH (7.35-7.45) ABG pCO2 (35-45) mmHg ABG pO2 66 L (83-108) mmHg ABG HCO3 26 H (21-25) mmol/L ABG Total CO2 28 H (19-24) mmol/L ABG O2 Saturation 91.7 L (94-97) % Hemoglobin 7.5 L (13.0-17.5) gm/dL Potassium (3.5-5.1) mmol/L Carbon Dioxide (22-30) mmol/L BUN (9-20) mg/dL Creatinine (0.66-1.25) mg/dL Glucose (74-99) mg/dL POC Glucose (mg/dL) (70-110) mg/dL Plasma Lactic Acid Sina 7.0 H* (0.7-2.0) mmol/L Calcium (8.4-10.2) mg/dL Ionized Calcium Csico (4.5-5.3) mg/dL Magnesium (1.6-2.3) mg/dL AST (17-59) U/L Alkaline Phosphatase (38-126) U/L Troponin I (0.000-0.034) ng/mL Total Protein (6.3-8.2) g/dL Albumin (3.5-5.0) g/dL Crossmatch See Detail 01/02/25 Range/Units 11:50 WBC (4.50-10.00) 10*3/uL RBC (4.40-5.60) 10*6/uL Hgb (13.0-17.0) g/dL Hct (39.6-50.0) % MCV (80.0-97.0) fL MCHC (32.0-37.0) g/dL Plt Count (140-440) 10*3/uL Immature Gran # (0.00-0.04) 10*3/uL Neutrophils # (1.80-7.70) 10*3/uL Eosinophils # (0.04-0.35) 10*3/uL PT (10.0-12.5) sec INR (<1.2) APTT (22.0-30.0) sec ABG pH (7.35-7.45) ABG pCO2 (35-45) mmHg ABG pO2 (83-108) mmHg ABG HCO3 (21-25) mmol/L ABG Total CO2 (19-24) mmol/L ABG O2 Saturation (94-97) % Hemoglobin (13.0-17.5) gm/dL Potassium (3.5-5.1) mmol/L Carbon Dioxide (22-30) mmol/L BUN (9-20) mg/dL Creatinine (0.66-1.25) mg/dL Glucose (74-99) mg/dL POC Glucose (mg/dL) 311 H (70-110) mg/dL Plasma Lactic Acid Sina (0.7-2.0) mmol/L Calcium (8.4-10.2) mg/dL Ionized Calcium Cisco (4.5-5.3) mg/dL Magnesium (1.6-2.3) mg/dL AST (17-59) U/L Alkaline Phosphatase (38-126) U/L Troponin I (0.000-0.034) ng/mL Total Protein (6.3-8.2) g/dL Albumin (3.5-5.0) g/dL Crossmatch Microbiology - Last 24 Hours (Table) 12/31/24 09:04 Gram Stain - Preliminary Sputum Sputum Culture - Preliminary Yeast Yeast#2 Assessment and Plan (1) Sepsis Current Visit: Yes Status: Acute Code(s): A41.9 - SEPSIS, UNSPECIFIED ORGANISM SNOMED Code(s): 05956177 (2) Aspiration pneumonitis Current Visit: Yes Status: Acute Code(s): J69.0 - PNEUMONITIS DUE TO INHALATION OF FOOD AND VOMIT SNOMED Code(s): 852165388 (3) Colitis Current Visit: Yes Status: Acute Code(s): K52.9 - NONINFECTIVE GASTROENTERITIS AND COLITIS, UNSPECIFIED SNOMED Code(s): 81502360 (4) Cholecystitis Current Visit: Yes Status: Acute Code(s): K81.9 - CHOLECYSTITIS, UNSPECIFIED SNOMED Code(s): 76788574 Plan: 1patient presented to hospital with sepsis in this patient who did have tachycardia hypotension elevated white count meeting criteria for SIRS source likely aspiration pneumonitis as the patient did have intractable nausea vomiting before the patient has been brought to the hospital patient also have abnormality on the abdominal pelvis CT concerning for colitis question of infectious etiology need to be ruled out patient did not recall if he has been on antibiotic in the recent past 2-sputum cultures collected on 12/31/2024 reported as [place] 3-patient CT as well as ultrasound has been suspicious for cholecystitis HIDA scan has been suspicious for chronic cholecystitis General Surgery following the patient 4patient did have a cardiac arrest now intubated in the ICU hypotension requiring pressor support I will request for blood culture repeat sputum culture patient is on Zosyn vancomycin has been added by ICU team will need to monitor his kidney function closely overall prognosis remains to be guarded Dictation was produced using [employer] software. please excuse any grammatical, word or spelling errors. Time with Patient: Greater than 30
[2025-01-02 17:56] LABS: Basophils # (A) 0.06 10*3/uL (0.00-0.10); Basophils % (A) 0.2 %; Eosinophils # (A) 0.17 10*3/uL (0.04-0.35); Eosinophils % (A) 0.7 %; HCT 26.5 % (39.6-50.0); Lymphocytes # (A) 2.08 10*3/uL (0.90-5.00); Lymphocytes % (A) 8.6 %; MCH 30.9 pg (27.0-32.0); MCHC 34.0 g/dL (32.0-37.0); MCV 91.1 fL (80.0-97.0); Monocytes # (A) 0.63 10*3/uL (0.20-1.00); Monocytes % (A) 2.6 %; Neutrophils # (A) 20.96 10*3/uL (1.80-7.70); Neutrophils % (A) 86.7 %; Platelet Count 374 10*3/uL (140-440); RBC 2.91 10*6/uL (4.40-5.60); RDW 19.4 % (11.5-14.5); WBC 24.18 10*3/uL (4.50-10.00)
[2025-01-02 18:01] LABS: HGB 9.0 g/dL (13.0-17.0)
[2025-01-02 18:06] LABS: Glucose,Whole Blood 328 mg/dL (70-110)
[2025-01-02] MEDS: INSULIN GLARGINE (LANTUS) 100 UNIT/ML SYR SQ SCH (21:24)
[2025-01-02 23:51] LABS: Glucose,Whole Blood 300 mg/dL (70-110)
[2025-01-02] MEDS: VANCOMYCIN TROUGH DUE 1 EACH MISC MISCELLANE ONE (23:59)
[2025-01-03 04:42] LABS: African American GFR (CKD) >90 (>60 ml/min/1.73 sqM); Magnesium 1.5 mg/dL (1.6-2.3); Non-African American GFR(CKD) >90 (>60 ml/min/1.73 sqM); Potassium 2.9 mmol/L (3.5-5.1)
[2025-01-03] MEDS: MAGNESIUM SULFATE-D5W PMX 1 GM in DEXTROSE/WATER 1 100ML.BAG IVPB SCH (05:04)
[2025-01-03] MEDS: POTASSIUM BICARBONATE/CIT AC 20 MEQ TABLET.EFF NG-TUBE SCH ×2 (05:04→12:19)
[2025-01-03 05:46] LABS: ABG HCO3 35 mmol/L (21-25); ABG PCO2 50 mmHg (35-45); ABG PH 7.46 (7.35-7.45); ABG PO2 123 mmHg (83-108); ABG TCO2 37 mmol/L (19-24); Allen Test Performed? Yes
[2025-01-03 06:14] LABS: Glucose,Whole Blood 334 mg/dL (70-110)
--- NOTE | 2025-01-03 06:53 | XR ---
EXAMINATION TYPE: XR chest 1V portable DATE OF EXAM: 01/03/2025 COMPARISON: 01/02/2025 CLINICAL INDICATION: Male, 44 years old with history of Tube placement; TECHNIQUE: Single frontal view of the chest is obtained. FINDINGS: ET tube is 7.8 cm above the yoli. There is an NG tube within the stomach. There is no melissa nge in the right jugular central venous catheter. There is no change in the thoracic vent in the left lung apex. There is a stable tiny left apical pneumothorax. There is no change in diffuse mixed interstitial and partially consolidative infiltrates. The heart size is normal. The osseous structures are intact. IMPRESSION: 1. ET tube 7.8 cm above the yoli. NG tube within the stomach. 2. No change in the left lung apex thoracic vent with tiny pneumothorax. 3. No change in the marked acute cardiopulmonary disease with diffuse interstitial and alveolar infil trates [facility], , 01/03/2025 6:50 AM
[2025-01-03 07:14] LABS: Basophils # (A) 0.04 10*3/uL (0.00-0.10); Basophils % (A) 0.2 %; Eosinophils # (A) 0.50 10*3/uL (0.04-0.35); Eosinophils % (A) 2.5 %; HCT 24.9 % (39.6-50.0); HGB 8.3 g/dL (13.0-17.0); Lymphocytes # (A) 1.83 10*3/uL (0.90-5.00); Lymphocytes % (A) 9.3 %; MCH 30.1 pg (27.0-32.0); MCHC 33.3 g/dL (32.0-37.0); MCV 90.2 fL (80.0-97.0); Monocytes # (A) 0.44 10*3/uL (0.20-1.00); Monocytes % (A) 2.2 %; Neutrophils # (A) 16.67 10*3/uL (1.80-7.70); Neutrophils % (A) 84.8 %; Platelet Count 304 10*3/uL (140-440); RBC 2.76 10*6/uL (4.40-5.60); RDW 19.9 % (11.5-14.5); WBC 19.68 10*3/uL (4.50-10.00)
[2025-01-03 07:34] LABS: ALT 19 U/L (4-49); AST 56 U/L (17-59); African American GFR (CKD) >90 (>60 ml/min/1.73 sqM); Albumin 1.4 g/dL (3.5-5.0); Alkaline Phosphatase 178 U/L (38-126); Anion Gap 5 mmol/L; Blood Urea Nitrogen 2 mg/dL (9-20); Carbon Dioxide 35 mmol/L (22-30); Chloride 94 mmol/L (98-107); Glucose 293 mg/dL (74-99); Non-African American GFR(CKD) >90 (>60 ml/min/1.73 sqM); Potassium 2.9 mmol/L (3.5-5.1); Sodium 134 mmol/L (137-145); Total Protein 3.4 g/dL (6.3-8.2)
[2025-01-03 07:46] LABS: Calcium 5.3 mg/dL (8.4-10.2)
--- NOTE | 2025-01-03 08:14 | P.PN ---
Subjective Progress Note Date: 01/02/25 This is a pleasant 44-year-old male who was recently admitted after brief cardiac arrest with multiple electrolyte abnormalities being closely monitored. Patient being followed by cardiology and is status post cardiac catheterization recommending maximizing medical management and normal coronary arteries noted. Patient reports to having increasing pain and also generalized weakness although reports will be going home on discharge. Patient did have an elevated white count that had been trending down although is slightly up today with infectious disease following and will repeat CT abdomen for further evaluation. Continue current antibiotics at this time. Case management is following as plan is for LifeVest on discharge. Recommend incentive spirometer as patient is requiring oxygen and may require oxygen on discharge. Will reattempt home oxygen evaluation. Encourage increase activity as tolerated with sitting up out of the bed more frequently. Labs reviewed and white count is 25.52, hemoglobin is 8.8, platelets 446, sodium 137 with a potassium of 3.5, BUN is 5 and creatinine 0.33. Calcium is slightly low at 6.2, total bili is 1.4. 12/31/2024 Patient is seen in follow-up with multiple consultations following. White count was elevated although slightly improving with infectious disease following we will continue current regimen at this time. Patient continues to report short ness of breath and generalized pain and continues to require oxygen. Will need home O2 assessment. Patient underwent CT abdomen and will consult general surgery for evaluation. Encouraged increased activity as tolerated with sitting up more frequently in the chair. 01/01/2025 Patient seen and evaluated this morning currently scheduled to undergo HIDA scan per general surgery and patient is currently requesting increase in pain medications as she reports diffuse pain. Pain medications through the IV are currently on hold as patient will be undergoing HIDA scan. Patient's white count is elevated with infectious disease following maintained on Zosyn and will continue. Patient is afebrile with no reports of chest pain or palpitations. Patient is reporting some congestion and occasional shortness of breath. Will order chest x-ray as well. Continue DuoNeb treatments and supplemental oxygen as needed. Patient currently maintained on 5 L. Would recommend PT/OT therapy evaluation as patient has had prolonged cough elevation and appears frail and extremely weak. 01/02/2025 Patient is seen in follow-up was a CODE BLUE on 3 S. and was transferred to ICU intubated for respiratory arrest with cardiac arrest and ROSC received. Patient remains a full code per sister and will continue on mechanical ventilation with an FiO2 of 100% and PEEP of 10 currently. Blood pressures are soft and patient is maintained on pressor support and hemoglobin was noted to be 6.9 this morning and will give 1 unit of PRBC. White count remains elevated at 24.18 and maintained on antibiotics with infectious disease following. Sodium is 141 with a potassium of 3.0, creatinine 0.48, blood sugars elevated, lactic acid 5.1 with a calcium that is low at 5.6, magnesium 1.2. Prognosis remains extremely guarded and CODE STATUS needs to be addressed again. Review of systems: Unable to assess as patient is now intubated and sedated All medications have been reviewed PHYSICAL EXAMINATION: GENERAL: The patient is alert and oriented x0, placed back on mechanical vent with an FiO2 of 100% and PEEP is 10. Well developed, elderly appearing, thin built, cachectic, chronically ill-appearing HEENT: Pupils are round and equally reacting to light. EOMI. no scleral icterus. No conjunctival pallor. Normocephalic, atraumatic. No pharyngeal erythema. No thyromegaly. CARDIOVASCULAR: S1 and S2 muffled PULMONARY: diminished breath sounds bilaterally with no wheezing, scattered coarse rhonchi noted with upper bronchial congestion. Crackles noted at the bases ABDOMEN: soft. Nontender on exam. Thin non-distended, normoactive bowel sounds. No palpable organomegaly. MUSCULOSKELETAL: No joint swelling or deformity. EXTREMITIES: No cyanosis, clubbing, or pedal edema. NEUROLOGICAL: Gross neurological examination did not reveal any focal deficits. Unable to completely assess as patient is sedated and on mechanical ventilation SKIN: No rashes. Extremely pale Assessment: Cardiac arrest, possibly secondary to ventricular tachycardia secondary to multiple electrolyte abnormalities Respiratory arrest with cardiac arrest requiring mechanical ventilation 01/01/2025 Severe hypokalemia, hypomagnesemia, hypocalcemia, improving after replacement History of EtOH Nonischemic cardiomyopathy possible Takotsubo, EF was 20 to 25%, repeat is 30- 35, being fitted for LifeVest Possible acute colitis as noted on imaging Diabetes mellitus, type II, uncontrolled with hyperglycemia History of pancreatitis Tachycardia Anemia, chronic, hemoglobin 6.9 today and being transfused 1 unit of PRBC 2024 Concerns of possible right lower lobe pneumonia, possibly aspiration History of splenic vein thrombosis, was on Eliquis Hepatic encephalopathy Moderate protein calorie malnutrition with a BMI of 17.7 GI prophylaxis DVT prophylaxis Full code Plan: Recommend to continue with current medications and management with multiple consultations following. Patient had respiratory arrest with cardiac arrest overnight and was placed on mechanical ventilation and is now in the ICU continued on sedatives and pressor support infectious disease following as white count is trending up and patient is ma intained on antibiotics and will continue. Patient underwent repeat CT abdomen as patient's white count is elevated and continues to have urinary retention as well. general surgery following as there was concerns of acute cholecystitis and there are no plans for surgery at this time Cardiology following and patient is status post catheterization recommending maximizing medical management and case management following and has received LifeVest Continue monitoring Accu-Cheks AC and at bedtime and adjust accordingly Follow-up on repeat labs and replace electrolytes per protocol. Replace potas sium and magnesium Per nursing staff sister reports patient is full code and to remain full code. CODE STATUS needs to be readdressed and overall prognosis is extremely poor and guarded at this time The impression and plan of care has been dictated by Ana Duggan, nurse practitioner as directed. Dr. Yara MD I have performed a history and examination and MDM of this patient, discussed the same with the dictator, and agree with the dictator's assessment and plan as written ,documented as a scribe. Based on total visit time, I have performed more than 50% of the visit. Any additional findings or plans will be noted. Objective - Vital Signs Vital signs: Vital Signs Temp 97.3 F L 01/03/25 04:00 Pulse 73 01/03/25 07:58 Resp 22 01/03/25 07:00 BP 84/63 01/03/25 07:00 Pulse Ox 95 01/03/25 07:00 FiO2 70 01/03/25 07:59 Intake & Output 01/02/25 01/03/25 01/03/25 18:59 06:59 18:59 Intake Total 4027.893 2788.797 150 Output Total 515 800 40 Balance 3512.893 1988.797 110 Weight 56.7 kg 67.8 kg Intake: IV 2950 2450 150 Calcium Gluconate in NaCl 100 2 gm In Saline 1 100ml. bag @ 100 mls/hr IVPB ONCE ONE Rx#:[id number] Dextrose 5% in Water 1, 1650 1800 150 000 ml @ 150 mls/hr IV . Q7H40M VLAD with Sodium Bicarb (1 Meq/ml) 150 ml Rx#:[id number] Magnesium Sulfate-D5w Pmx 300 200 1 gm In Dextrose/Water 1 100ml.bag @ 100 mls/hr IVPB Q1H VLAD Rx#: [id number] Piperacillin-Tazobactam 3 200 .375 gm In Sodium Chloride 0.9% 100 ml @ 25 mls/hr IVPB Q8HR [facility] Rx# :[id number] Piperacillin-Tazobactam 3 100 .375 gm In Sodium Chloride 0.9% 100 ml @ 25 mls/hr IVPB Q8HR [facility] Rx# :[id number] Vancomycin 1,000 mg In 500 250 Sodium Chloride 0.9% 250 ml @ 125 mls/hr IVPB ONCE ONE Rx#:[id number] metroNIDAZOLE-NS PMX 500 200 100 mg In Saline 1 100ml.bag @ 100 mls/hr IVPB Q8HR [facility] Rx#:[id number] Intake, IV Titration 767.893 338.797 Amount Dextrose 5% in Water 1, 150 000 ml @ 150 mls/hr IV . Q7H40M VLAD with Sodium Bicarb (1 Meq/ml) 150 ml Rx#:[id number] Norepinephrine 8 mg In 357.778 151.799 Sodium Chloride 0.9% 250 ml @ 0.03 MCG/KG/MIN 3. 291 mls/hr IV .Q24H [facility] Rx#:[id number] fentaNYL (PF). 1,000 mcg 71.377 13.3 In Sodium Chloride 0.9% 80 ml @ 0.5 MCG/KG/HR 2. 66 mls/hr IV .Q24H [facility] Rx #:[id number] propofoL 1,000 mg In 188.738 173.698 Empty Bag 1 bag @ 15 MCG/ KG/MIN 4.788 mls/hr IV . [id number] [facility] Rx#:[id number] Blood Product 310 Rc As-1 Unit 310 [id number] Output: Chest Tube Drainage 80 0 Thora-Vent Left Anterior 80 0 Chest Urine 515 720 40 Other: Voiding Method Indwelling Catheter Indwelling Catheter ABP, PAP, CO, CI - Last Documented Arterial Blood Pressure 92/70 - Labs CBC & Chem 7: 01/03/25 06:36 01/03/25 06:36 Labs: Abnormal Lab Results - Last 24 Hours (Table) 01/02/25 01/02/25 01/02/25 Range/Units 06:03 06:03 10:17 WBC (4.50-10.00) 10*3/uL RBC (4.40-5.60) 10*6/uL Hgb (13.0-17.0) g/dL Hct (39.6-50.0) % Immature Gran # (0.00-0.04) 10*3/uL Neutrophils # (1.80-7.70) 10*3/uL Eosinophils # (0.04-0.35) 10*3/uL ABG pH (7.35-7.45) ABG pCO2 (35-45) mmHg ABG pO2 (83-108) mmHg ABG HCO3 (21-25) mmol/L ABG Total CO2 (19-24) mmol/L ABG O2 Saturation (94-97) % Hemoglobin (13.0-17.5) gm/dL Sodium (137-145) mmol/L Potassium (3.5-5.1) mmol/L Chloride (98-107) mmol/L Carbon Dioxide (22-30) mmol/L BUN (9-20) mg/dL Creatinine (0.66-1.25) mg/dL Glucose (74-99) mg/dL POC Glucose (mg/dL) (70-110) mg/dL Plasma Lactic Acid Sina (0.7-2.0) mmol/L Calcium (8.4-10.2) mg/dL Ionized Calcium Cisco 3.4 L* (4.5-5.3) mg/dL Magnesium (1.6-2.3) mg/dL Alkaline Phosphatase (38-126) U/L Total Protein (6.3-8.2) g/dL Albumin (3.5-5.0) g/dL Procalcitonin 0.65 H (0.02-0.50) ng/mL Cortisol 29.5 H (3.1-22.4) UG/DL Crossmatch 01/02/25 01/02/25 01/02/25 Range/Units 10:17 10:22 10:30 WBC (4.50-10.00) 10*3/uL RBC (4.40-5.60) 10*6/uL Hgb (13.0-17.0) g/dL Hct (39.6-50.0) % Immature Gran # (0.00-0.04) 10*3/uL Neutrophils # (1.80-7.70) 10*3/uL Eosinophils # (0.04-0.35) 10*3/uL ABG pH (7.35-7.45) ABG pCO2 (35-45) mmHg ABG pO2 66 L (83-108) mmHg ABG HCO3 26 H (21-25) mmol/L ABG Total CO2 28 H (19-24) mmol/L ABG O2 Saturation 91.7 L (94-97) % Hemoglobin 7.5 L (13.0-17.5) gm/dL Sodium (137-145) mmol/L Potassium (3.5-5.1) mmol/L Chloride (98-107) mmol/L Carbon Dioxide (22-30) mmol/L BUN (9-20) mg/dL Creatinine (0.66-1.25) mg/dL Glucose (74-99) mg/dL POC Glucose (mg/dL) (70-110) mg/dL Plasma Lactic Acid Sina 7.0 H* (0.7-2.0) mmol/L Calcium (8.4-10.2) mg/dL Ionized Calcium Cisco (4.5-5.3) mg/dL Magnesium (1.6-2.3) mg/dL Alkaline Phosphatase (38-126) U/L Total Protein (6.3-8.2) g/dL Albumin (3.5-5.0) g/dL Procalcitonin (0.02-0.50) ng/mL Cortisol (3.1-22.4) UG/DL Crossmatch See Detail 01/02/25 01/02/25 01/02/25 Range/Units 11:50 13:53 13:53 WBC (4.50-10.00) 10*3/uL RBC (4.40-5.60) 10*6/uL Hgb (13.0-17.0) g/dL Hct (39.6-50.0) % Immature Gran # (0.00-0.04) 10*3/uL Neutrophils # (1.80-7.70) 10*3/uL Eosinophils # (0.04-0.35) 10*3/uL ABG pH (7.35-7.45) ABG pCO2 (35-45) mmHg ABG pO2 (83-108) mmHg ABG HCO3 (21-25) mmol/L ABG Total CO2 (19-24) mmol/L ABG O2 Saturation (94-97) % Hemoglobin (13.0-17.5) gm/dL Sodium (137-145) mmol/L Potassium 3.0 L (3.5-5.1) mmol/L Chloride (98-107) mmol/L Carbon Dioxide (22-30) mmol/L BUN (9-20) mg/dL Creatinine (0.66-1.25) mg/dL Glucose (74-99) mg/dL POC Glucose (mg/dL) 311 H (70-110) mg/dL Plasma Lactic Acid Sina 5.3 H* (0.7-2.0) mmol/L Calcium (8.4-10.2) mg/dL Ionized Calcium Cisco (4.5-5.3) mg/dL Magnesium (1.6-2.3) mg/dL Alkaline Phosphatase (38-126) U/L Total Protein (6.3-8.2) g/dL Albumin (3.5-5.0) g/dL Procalcitonin (0.02-0.50) ng/mL Cortisol (3.1-22.4) UG/DL Crossmatch 01/02/25 01/02/25 01/02/25 Range/Units 17:33 17:33 18:05 WBC 24.18 H (4.50-10.00) 10*3/uL RBC 2.91 L (4.40-5.60) 10*6/uL Hgb 9.0 L D (13.0-17.0) g/dL Hct 26.5 L (39.6-50.0) % Immature Gran # 0.28 H (0.00-0.04) 10*3/uL Neutrophils # 20.96 H (1.80-7.70) 10*3/uL Eosinophils # (0.04-0.35) 10*3/uL ABG pH (7.35-7.45) ABG pCO2 (35-45) mmHg ABG pO2 (83-108) mmHg ABG HCO3 (21-25) mmol/L ABG Total CO2 (19-24) mmol/L ABG O2 Saturation (94-97) % Hemoglobin (13.0-17.5) gm/dL Sodium (137-145) mmol/L Potassium (3.5-5.1) mmol/L Chloride (98-107) mmol/L Carbon Dioxide (22-30) mmol/L BUN (9-20) mg/dL Creatinine (0.66-1.25) mg/dL Glucose (74-99) mg/dL POC Glucose (mg/dL) 328 H (70-110) mg/dL Plasma Lactic Acid Sina 4.5 H* (0.7-2.0) mmol/L Calcium (8.4-10.2) mg/dL Ionized Calcium Cisco (4.5-5.3) mg/dL Magnesium (1.6-2.3) mg/dL Alkaline Phosphatase (38-126) U/L Total Protein (6.3-8.2) g/dL Albumin (3.5-5.0) g/dL Procalcitonin (0.02-0.50) ng/mL Cortisol (3.1-22.4) UG/DL Crossmatch 01/02/25 01/02/25 01/02/25 Range/Units 21:00 21:00 23:50 WBC (4.50-10.00) 10*3/uL RBC (4.40-5.60) 10*6/uL Hgb (13.0-17.0) g/dL Hct (39.6-50.0) % Immature Gran # (0.00-0.04) 10*3/uL Neutrophils # (1.80-7.70) 10*3/uL Eosinophils # (0.04-0.35) 10*3/uL ABG pH (7.35-7.45) ABG pCO2 (35-45) mmHg ABG pO2 (83-108) mmHg ABG HCO3 (21-25) mmol/L ABG Total CO2 (19-24) mmol/L ABG O2 Saturation (94-97) % Hemoglobin (13.0-17.5) gm/dL Sodium (137-145) mmol/L Potassium 3.0 L (3.5-5.1) mmol/L Chloride (98-107) mmol/L Carbon Dioxide (22-30) mmol/L BUN (9-20) mg/dL Creatinine (0.66-1.25) mg/dL Glucose (74-99) mg/dL POC Glucose (mg/dL) 300 H (70-110) mg/dL Plasma Lactic Acid Sina 5.1 H* (0.7-2.0) mmol/L Calcium (8.4-10.2) mg/dL Ionized Calcium Cisco (4.5-5.3) mg/dL Magnesium (1.6-2.3) mg/dL Alkaline Phosphatase (38-126) U/L Total Protein (6.3-8.2) g/dL Albumin (3.5-5.0) g/dL Procalcitonin (0.02-0.50) ng/mL Cortisol (3.1-22.4) UG/DL Crossmatch 01/03/25 01/03/25 01/03/25 Range/Units 04:00 05:42 06:13 WBC (4.50-10.00) 10*3/uL RBC (4.40-5.60) 10*6/uL Hgb (13.0-17.0) g/dL Hct (39.6-50.0) % Immature Gran # (0.00-0.04) 10*3/uL Neutrophils # (1.80-7.70) 10*3/uL Eosinophils # (0.04-0.35) 10*3/uL ABG pH 7.46 H (7.35-7.45) ABG pCO2 50 H (35-45) mmHg ABG pO2 123 H (83-108) mmHg ABG HCO3 35 H (21-25) mmol/L ABG Total CO2 37 H (19-24) mmol/L ABG O2 Saturation 99.3 H (94-97) % Hemoglobin 8.8 L (13.0-17.5) gm/dL Sodium (137-145) mmol/L Potassium 2.9 L (3.5-5.1) mmol/L Chloride (98-107) mmol/L Carbon Dioxide (22-30) mmol/L BUN (9-20) mg/dL Creatinine 0.61 L (0.66-1.25) mg/dL Glucose (74-99) mg/dL POC Glucose (mg/dL) 334 H (70-110) mg/dL Plasma Lactic Acid Sina (0.7-2.0) mmol/L Calcium (8.4-10.2) mg/dL Ionized Calcium Cisco (4.5-5.3) mg/dL Magnesium 1.5 L (1.6-2.3) mg/dL Alkaline Phosphatase (38-126) U/L Total Protein (6.3-8.2) g/dL Albumin (3.5-5.0) g/dL Procalcitonin (0.02-0.50) ng/mL Cortisol (3.1-22.4) UG/DL Crossmatch 01/03/25 01/03/25 Range/Units 06:36 06:36 WBC 19.68 H (4.50-10.00) 10*3/uL RBC 2.76 L (4.40-5.60) 10*6/uL Hgb 8.3 L (13.0-17.0) g/dL Hct 24.9 L (39.6-50.0) % Immature Gran # 0.20 H (0.00-0.04) 10*3/uL Neutrophils # 16.67 H (1.80-7.70) 10*3/uL Eosinophils # 0.50 H (0.04-0.35) 10*3/uL ABG pH (7.35-7.45) ABG pCO2 (35-45) mmHg ABG pO2 (83-108) mmHg ABG HCO3 (21-25) mmol/L ABG Total CO2 (19-24) mmol/L ABG O2 Saturation (94-97) % Hemoglobin (13.0-17.5) gm/dL Sodium 134 L (137-145) mmol/L Potassium 2.9 L (3.5-5.1) mmol/L Chloride 94 L (98-107) mmol/L Carbon Dioxide 35 H (22-30) mmol/L BUN 2 L (9-20) mg/dL Creatinine 0.63 L (0.66-1.25) mg/dL Glucose 293 H (74-99) mg/dL POC Glucose (mg/dL) (70-110) mg/dL Plasma Lactic Acid Sina (0.7-2.0) mmol/L Calcium 5.3 L* (8.4-10.2) mg/dL Ionized Calcium Cisco 3.4 L* (4.5-5.3) mg/dL Magnesium (1.6-2.3) mg/dL Alkaline Phosphatase 178 H (38-126) U/L Total Protein 3.4 L (6.3-8.2) g/dL Albumin 1.4 L (3.5-5.0) g/dL Procalcitonin (0.02-0.50) ng/mL Cortisol (3.1-22.4) UG/DL Crossmatch Microbiology - Last 24 Hours (Table) 12/31/24 09:04 Gram Stain - Preliminary Sputum Sputum Culture - Preliminary Yeast Yeast#2
[2025-01-03] MEDS: CALCIUM GLUCONATE IN NACL 2 GM in SALINE 1 100ML.BAG IVPB ONE (09:03)
--- NOTE | 2025-01-03 10:06 | P.PN ---
Subjective Progress Note Date: 01/03/25 Principal diagnosis: Cardiopulmonary arrest. This is a 44-year-old white male brought into the emergency room earlier this morning by EMS with altered mental status and seizure-like activity. Apparently the patient is known to have past medical history of alcohol use, chronic p ancreatitis, pancreatic pseudocyst, history of hypertension, previous history of TIA, patient had a sudden feeling of dizziness, and asked his roommate to call EMS. Apparently upon arrival of EMS he was found to have seizure-like activity and went unresponsive on the monitor the patient was noted to have ventricular tachycardia, CPR was started and the patient received 1 shock. Patient became conscious again, and his rhythm came back with return of circulation. Apparently for the last few days the patient has been experiencing episodes of nausea and vomiting and episodes of low blood sugar. In addition, patient has been complaining of episodes of diarrhea for the last 2 weeks. Patient normally follows up at [facility] for his pancreatitis and pseudocyst. 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 And has been taking Eliquis until yesterday. Patient drinks occasionally at this point, used to be a heavy drinker in the past. I evaluated the patient in the ER, and considering his cardiac arrest history, I recommended admitting the patient to the ICU, and he is to be seen by other consultants including cardiology. During my evaluation the patient was not in any distress, he was hemodynamically stable, all his labs were reviewed. Patient was seen today on 12/25/2024, remains in the ICU mostly because of his profound electrolyte abnormalities including hypocalcemia, hypomagnesium , hypokalemia, these are all being addressed accordingly mostly related to his GI symptoms and his pancreatitis. As well as diarrhea and nausea and vomiting. Patient is not in any distress, he is on 2 L nasal cannula, has been receiving potassium almost every 2 hours 20 mEq orally remains empirically on Zosyn, continues to have some vague abdominal pain and discomfort. WBC count today is 12.2 hemoglobin 9.5 electrolytes showed low sodium of 131 low potassium 2.9 but few hours later it was up to 3.8 renal functioning is normal calcium is up to 5.8 today. Add magnesium is up to 2.1, these are all being addressed daily. Cardiac sheppard the patient is in sinus rhythm, no further episodes of tachyarrhythmia. Seen today on 12/26/2024, patient remains in the ICU, feeling better, he has no active pulmonary symptoms no GI symptoms and no cardiac symptoms. Labs have shown significant improvement his potassium today is 4.5 calcium is up to 6 however his albumin is 1.9 which makes his corrected calcium 7.68., Improved, but not up to 8.4 or higher. Hence would recommend more calcium gluconate to be given for this patient. Magnesium not done today however was 2.1 yesterday. Seen today on 12/27/2024, patient is doing well, asymptomatic. Has some vague abdominal pain no cough no wheezing no shortness of breath no chest pain. No palpitations CBC showed leukocytosis WBC count of 15.9 hemoglobin 8.8. His electrolytes are normal potassium is 3.8 calcium is up to 6.8/uncorrected to albumin. 01/02/25 - He was seen and examined in the ICU, room 258. He was previously seen by pulmonary/critical care up until 12/27/2024, at which time we signed off care. Since that time, on 12/30/2024 he underwent a cardiac catheterization with Dr. Rosario which revealed normal coronary arteries, cardiomyopathy of nonischemic etiology. He was being followed by infectious disease due to possible colitis, and had been placed on antibiotics, general surgery for exploratory laparotomy in regards to cholecystitis and colitis. Late in the evening on 01/01/2025 a CODE BLUE was called in which the patient had diminished breath sounds and was tachypneic. He became bradycardic and then went asystole, at which time CPR was initiated. CODE BLUE as per the event note in the patient's chart. ROSC was achieved with 2 rounds of epinephrine. At that time patient was intubated, transferred to the ICU and initiated on a bicarb drip. He was noted to have pneumothorax of the left lung. He was intubated on 01/01/2025 and has not been mechanically ventilated with a tidal volume 400, respiratory rate 22, FiO2 100% and PEEP of 10. Most recent blood gas showed pO2 66, pCO2 45 and pH 7.37. Most recent labs showed WBCs 27.2, hemoglobin 6.9, hematocrit 21.8, platelet 339; sodium 141, potassium 2.6, bicarb 20, BUN <2, creatinine 0.48, lactic acid 11.7, calcium 5.6, ionized calcium 3.4, magnesium 1.2, total bilirubin 1.2, AST 99, ALT 29, alkaline phosphatase 183, TSH 0.551. He is currently receiving norepinephrine 0.39 mcg/kg/min, and sedated with fentanyl at 1 mcg/kg/h, propofol at 50 mcg/kg/h, and received an additional 10 mg of Nimbex prior to left radial arterial line placement. He continues receiving vancomycin, Zosyn, Flagyl and Diflucan. Progress note dated January 03, 2025. This is a 44-year-old male seen in room 258. He remains on mechanical ventilator. He is on volume assist-control, rate 22, tidal volume 400, FiO2 70 %, PEEP of 10. Blood gases show pO2 123, pCO2 50, pH of 7.46. He has a left Thora vent in place. He is on fentanyl at 1.5 mcg/kg/h, D5W with 3 ampoules of sodium bicarbonate at 150 cc an hour, propofol at 50 mcg/kg/min, saline at 30 cc an hour, norepinephrine at 6 mcg/min, and vasopressin at 0.03 units/min. Sodium bicarbonate drip can be discontinued. The patient is currently also on fluconaz ole, Flagyl, vancomycin, and Zosyn. Current labs include a white count of 19.7, hemoglobin 8.3, hematocrit 25, and platelet count 304,000. Sodium 134, potassium 2.9, chloride 94, CO2 35, BUN 2, creatinine 0.63. Calcium is 5.3, and ionized calcium is low at 3.4. Albumin is 1.4. Cultures thus far are negative, save for the sputum showing evidence of yeast. Chest x-ray shows the left lung to be expanded, with a very tiny pneumothorax. There is diffuse changes throughout, largely unchanged. Objective - Vital Signs Vital signs: Vital Signs Temp 93.7 F L 01/03/25 08:00 Pulse 86 01/03/25 09:30 Resp 22 01/03/25 09:30 BP 84/63 01/03/25 07:00 Pulse Ox 97 01/03/25 09:30 FiO2 60 01/03/25 09:49 Intake & Output 01/02/25 01/03/25 01/03/25 18:59 06:59 18:59 Intake Total 4027.893 2788.797 575 Output Total 515 800 165 Balance 3512.893 1988.797 410 Weight 56.7 kg 67.8 kg Intake: IV 2950 2450 575 .9NS KVO 50 Calcium Gluconate in NaCl 100 100 2 gm In Saline 1 100ml. bag @ 100 mls/hr IVPB ONCE ONE Rx#:[id number] Dextrose 5% in Water 1, 1650 1800 300 000 ml @ 150 mls/hr IV . Q7H40M VLAD with Sodium Bicarb (1 Meq/ml) 150 ml Rx#:[id number] Magnesium Sulfate-D5w Pmx 300 200 1 gm In Dextrose/Water 1 100ml.bag @ 100 mls/hr IVPB Q1H VLAD Rx#: [id number] Piperacillin-Tazobactam 3 200 .375 gm In Sodium Chloride 0.9% 100 ml @ 25 mls/hr IVPB Q8HR [facility] Rx# :[id number] Piperacillin-Tazobactam 3 100 25 .375 gm In Sodium Chloride 0.9% 100 ml @ 25 mls/hr IVPB Q8HR [facility] Rx# :[id number] Vancomycin 1,000 mg In 500 250 Sodium Chloride 0.9% 250 ml @ 125 mls/hr IVPB ONCE ONE Rx#:[id number] metroNIDAZOLE-NS PMX 500 200 100 100 mg In Saline 1 100ml.bag @ 100 mls/hr IVPB Q8HR [facility] Rx#:[id number] Intake, IV Titration 767.893 338.797 Amount Dextrose 5% in Water 1, 150 000 ml @ 150 mls/hr IV . Q7H40M VLAD with Sodium Bicarb (1 Meq/ml) 150 ml Rx#:[id number] Norepinephrine 8 mg In 357.778 151.799 Sodium Chloride 0.9% 250 ml @ 0.03 MCG/KG/MIN 3. 291 mls/hr IV .Q24H [facility] Rx#:[id number] fentaNYL (PF). 1,000 mcg 71.377 13.3 In Sodium Chloride 0.9% 80 ml @ 0.5 MCG/KG/HR 2. 66 mls/hr IV .Q24H [facility] Rx #:[id number] propofoL 1,000 mg In 188.738 173.698 Empty Bag 1 bag @ 15 MCG/ KG/MIN 4.788 mls/hr IV . [id number] [facility] Rx#:[id number] Blood Product 310 Rc As-1 Unit 310 [id number] Output: Chest Tube Drainage 80 0 Thora-Vent Left Anterior 80 0 Chest Urine 515 720 165 Other: Voiding Method Indwelling Catheter Indwelling Catheter ABP, PAP, CO, CI - Last Documented Arterial Blood Pressure 97/72 - Exam No acute distress, sedated, with an orally placed endotracheal tube. HEENT examination is grossly unremarkable. Mucous membranes are moist. No oral lesions. Neck supple. Full range of motion. No adenopathy thyromegaly or neck vein distention. Cardiovascular examination reveals regular rhythm rate. S1-S2 normal. No S3 or S4. No discernible murmur noted. Heart sounds are distant. Lungs reveal scattered bilateral mild to moderate rhonchorous breath sounds. No wheezes. No crackles. Breath sounds equal bilaterally. Abdomen soft without bowel sounds. No masses or tenderness. Extremities are intact. No cyanosis clubbing or edema. Skin is without rash or lesion. Neurologic examination cannot be evaluated at this time. - Labs CBC & Chem 7: 01/03/25 06:36 01/03/25 06:36 Labs: Abnormal Lab Results - Last 24 Hours (Table) 01/02/25 01/02/25 01/02/25 Range/Units 06:03 06:03 10:17 WBC (4.50-10.00) 10*3/uL RBC (4.40-5.60) 10*6/uL Hgb (13.0-17.0) g/dL Hct (39.6-50.0) % Immature Gran # (0.00-0.04) 10*3/uL Neutrophils # (1.80-7.70) 10*3/uL Eosinophils # (0.04-0.35) 10*3/uL ABG pH (7.35-7.45) ABG pCO2 (35-45) mmHg ABG pO2 (83-108) mmHg ABG HCO3 (21-25) mmol/L ABG Total CO2 (19-24) mmol/L ABG O2 Saturation (94-97) % Hemoglobin (13.0-17.5) gm/dL Sodium (137-145) mmol/L Potassium (3.5-5.1) mmol/L Chloride (98-107) mmol/L Carbon Dioxide (22-30) mmol/L BUN (9-20) mg/dL Creatinine (0.66-1.25) mg/dL Glucose (74-99) mg/dL POC Glucose (mg/dL) (70-110) mg/dL Plasma Lactic Acid Sina (0.7-2.0) mmol/L Calcium (8.4-10.2) mg/dL Ionized Calcium Cisco 3.4 L* (4.5-5.3) mg/dL Magnesium (1.6-2.3) mg/dL Alkaline Phosphatase (38-126) U/L Total Protein (6.3-8.2) g/dL Albumin (3.5-5.0) g/dL Procalcitonin 0.65 H (0.02-0.50) ng/mL Cortisol 29.5 H (3.1-22.4) UG/DL Crossmatch 01/02/25 01/02/25 01/02/25 Range/Units 10:17 10:22 10:30 WBC (4.50-10.00) 10*3/uL RBC (4.40-5.60) 10*6/uL Hgb (13.0-17.0) g/dL Hct (39.6-50.0) % Immature Gran # (0.00-0.04) 10*3/uL Neutrophils # (1.80-7.70) 10*3/uL Eosinophils # (0.04-0.35) 10*3/uL ABG pH (7.35-7.45) ABG pCO2 (35-45) mmHg ABG pO2 66 L (83-108) mmHg ABG HCO3 26 H (21-25) mmol/L ABG Total CO2 28 H (19-24) mmol/L ABG O2 Saturation 91.7 L (94-97) % Hemoglobin 7.5 L (13.0-17.5) gm/dL Sodium (137-145) mmol/L Potassium (3.5-5.1) mmol/L Chloride (98-107) mmol/L Carbon Dioxide (22-30) mmol/L BUN (9-20) mg/dL Creatinine (0.66-1.25) mg/dL Glucose (74-99) mg/dL POC Glucose (mg/dL) (70-110) mg/dL Plasma Lactic Acid Sina 7.0 H* (0.7-2.0) mmol/L Calcium (8.4-10.2) mg/dL Ionized Calcium Cisco (4.5-5.3) mg/dL Magnesium (1.6-2.3) mg/dL Alkaline Phosphatase (38-126) U/L Total Protein (6.3-8.2) g/dL Albumin (3.5-5.0) g/dL Procalcitonin (0.02-0.50) ng/mL Cortisol (3.1-22.4) UG/DL Crossmatch See Detail 01/02/25 01/02/25 01/02/25 Range/Units 11:50 13:53 13:53 WBC (4.50-10.00) 10*3/uL RBC (4.40-5.60) 10*6/uL Hgb (13.0-17.0) g/dL Hct (39.6-50.0) % Immature Gran # (0.00-0.04) 10*3/uL Neutrophils # (1.80-7.70) 10*3/uL Eosinophils # (0.04-0.35) 10*3/uL ABG pH (7.35-7.45) ABG pCO2 (35-45) mmHg ABG pO2 (83-108) mmHg ABG HCO3 (21-25) mmol/L ABG Total CO2 (19-24) mmol/L ABG O2 Saturation (94-97) % Hemoglobin (13.0-17.5) gm/dL Sodium (137-145) mmol/L Potassium 3.0 L (3.5-5.1) mmol/L Chloride (98-107) mmol/L Carbon Dioxide (22-30) mmol/L BUN (9-20) mg/dL Creatinine (0.66-1.25) mg/dL Glucose (74-99) mg/dL POC Glucose (mg/dL) 311 H (70-110) mg/dL Plasma Lactic Acid Sina 5.3 H* (0.7-2.0) mmol/L Calcium (8.4-10.2) mg/dL Ionized Calcium Cisco (4.5-5.3) mg/dL Magnesium (1.6-2.3) mg/dL Alkaline Phosphatase (38-126) U/L Total Protein (6.3-8.2) g/dL Albumin (3.5-5.0) g/dL Procalcitonin (0.02-0.50) ng/mL Cortisol (3.1-22.4) UG/DL Crossmatch 01/02/25 01/02/25 01/02/25 Range/Units 17:33 17:33 18:05 WBC 24.18 H (4.50-10.00) 10*3/uL RBC 2.91 L (4.40-5.60) 10*6/uL Hgb 9.0 L D (13.0-17.0) g/dL Hct 26.5 L (39.6-50.0) % Immature Gran # 0.28 H (0.00-0.04) 10*3/uL Neutrophils # 20.96 H (1.80-7.70) 10*3/uL Eosinophils # (0.04-0.35) 10*3/uL ABG pH (7.35-7.45) ABG pCO2 (35-45) mmHg ABG pO2 (83-108) mmHg ABG HCO3 (21-25) mmol/L ABG Total CO2 (19-24) mmol/L ABG O2 Saturation (94-97) % Hemoglobin (13.0-17.5) gm/dL Sodium (137-145) mmol/L Potassium (3.5-5.1) mmol/L Chloride (98-107) mmol/L Carbon Dioxide (22-30) mmol/L BUN (9-20) mg/dL Creatinine (0.66-1.25) mg/dL Glucose (74-99) mg/dL POC Glucose (mg/dL) 328 H (70-110) mg/dL Plasma Lactic Acid Sina 4.5 H* (0.7-2.0) mmol/L Calcium (8.4-10.2) mg/dL Ionized Calcium Cisco (4.5-5.3) mg/dL Magnesium (1.6-2.3) mg/dL Alkaline Phosphatase (38-126) U/L Total Protein (6.3-8.2) g/dL Albumin (3.5-5.0) g/dL Procalcitonin (0.02-0.50) ng/mL Cortisol (3.1-22.4) UG/DL Crossmatch 01/02/25 01/02/25 01/02/25 Range/Units 21:00 21:00 23:50 WBC (4.50-10.00) 10*3/uL RBC (4.40-5.60) 10*6/uL Hgb (13.0-17.0) g/dL Hct (39.6-50.0) % Immature Gran # (0.00-0.04) 10*3/uL Neutrophils # (1.80-7.70) 10*3/uL Eosinophils # (0.04-0.35) 10*3/uL ABG pH (7.35-7.45) ABG pCO2 (35-45) mmHg ABG pO2 (83-108) mmHg ABG HCO3 (21-25) mmol/L ABG Total CO2 (19-24) mmol/L ABG O2 Saturation (94-97) % Hemoglobin (13.0-17.5) gm/dL Sodium (137-145) mmol/L Potassium 3.0 L (3.5-5.1) mmol/L Chloride (98-107) mmol/L Carbon Dioxide (22-30) mmol/L BUN (9-20) mg/dL Creatinine (0.66-1.25) mg/dL Glucose (74-99) mg/dL POC Glucose (mg/dL) 300 H (70-110) mg/dL Plasma Lactic Acid Sina 5.1 H* (0.7-2.0) mmol/L Calcium (8.4-10.2) mg/dL Ionized Calcium Cisco (4.5-5.3) mg/dL Magnesium (1.6-2.3) mg/dL Alkaline Phosphatase (38-126) U/L Total Protein (6.3-8.2) g/dL Albumin (3.5-5.0) g/dL Procalcitonin (0.02-0.50) ng/mL Cortisol (3.1-22.4) UG/DL Crossmatch 01/03/25 01/03/25 01/03/25 Range/Units 04:00 05:42 06:13 WBC (4.50-10.00) 10*3/uL RBC (4.40-5.60) 10*6/uL Hgb (13.0-17.0) g/dL Hct (39.6-50.0) % Immature Gran # (0.00-0.04) 10*3/uL Neutrophils # (1.80-7.70) 10*3/uL Eosinophils # (0.04-0.35) 10*3/uL ABG pH 7.46 H (7.35-7.45) ABG pCO2 50 H (35-45) mmHg ABG pO2 123 H (83-108) mmHg ABG HCO3 35 H (21-25) mmol/L ABG Total CO2 37 H (19-24) mmol/L ABG O2 Saturation 99.3 H (94-97) % Hemoglobin 8.8 L (13.0-17.5) gm/dL Sodium (137-145) mmol/L Potassium 2.9 L (3.5-5.1) mmol/L Chloride (98-107) mmol/L Carbon Dioxide (22-30) mmol/L BUN (9-20) mg/dL Creatinine 0.61 L (0.66-1.25) mg/dL Glucose (74-99) mg/dL POC Glucose (mg/dL) 334 H (70-110) mg/dL Plasma Lactic Acid Sina (0.7-2.0) mmol/L Calcium (8.4-10.2) mg/dL Ionized Calcium Cisco (4.5-5.3) mg/dL Magnesium 1.5 L (1.6-2.3) mg/dL Alkaline Phosphatase (38-126) U/L Total Protein (6.3-8.2) g/dL Albumin (3.5-5.0) g/dL Procalcitonin (0.02-0.50) ng/mL Cortisol (3.1-22.4) UG/DL Crossmatch 01/03/25 01/03/25 Range/Units 06:36 06:36 WBC 19.68 H (4.50-10.00) 10*3/uL RBC 2.76 L (4.40-5.60) 10*6/uL Hgb 8.3 L (13.0-17.0) g/dL Hct 24.9 L (39.6-50.0) % Immature Gran # 0.20 H (0.00-0.04) 10*3/uL Neutrophils # 16.67 H (1.80-7.70) 10*3/uL Eosinophils # 0.50 H (0.04-0.35) 10*3/uL ABG pH (7.35-7.45) ABG pCO2 (35-45) mmHg ABG pO2 (83-108) mmHg ABG HCO3 (21-25) mmol/L ABG Total CO2 (19-24) mmol/L ABG O2 Saturation (94-97) % Hemoglobin (13.0-17.5) gm/dL Sodium 134 L (137-145) mmol/L Potassium 2.9 L (3.5-5.1) mmol/L Chloride 94 L (98-107) mmol/L Carbon Dioxide 35 H (22-30) mmol/L BUN 2 L (9-20) mg/dL Creatinine 0.63 L (0.66-1.25) mg/dL Glucose 293 H (74-99) mg/dL POC Glucose (mg/dL) (70-110) mg/dL Plasma Lactic Acid Sina (0.7-2.0) mmol/L Calcium 5.3 L* (8.4-10.2) mg/dL Ionized Calcium Cisco 3.4 L* (4.5-5.3) mg/dL Magnesium (1.6-2.3) mg/dL Alkaline Phosphatase 178 H (38-126) U/L Total Protein 3.4 L (6.3-8.2) g/dL Albumin 1.4 L (3.5-5.0) g/dL Procalcitonin (0.02-0.50) ng/mL Cortisol (3.1-22.4) UG/DL Crossmatch Microbiology - Last 24 Hours (Table) 12/31/24 09:04 Gram Stain - Preliminary Sputum Sputum Culture - Preliminary Yeast Yeast#2 Assessment and Plan Assessment: S/P cardiac arrest, with cardiopulmonary resuscitation, and return of spo ntaneous circulation. Intubation, and mechanical ventilation, secondary to cardiac arrest. Recent prior episode of cardiac arrest, not requiring intubation/mechanical ventilation Left pneumothorax, S/P Thora vent placement. History of chronic pancreatitis. Hyperammonemia. History of chronic alcohol abuse. History of splenic vein thrombosis. History of syncope. History of chronic diarrhea. Lactic acidosis. Hypocalcemia. Hypomagnesemia. Plan: Plan dated January 03, 2025. The patient is seen today in room 258. He remains on mechanical ventilator. He is on volume assist-control, tidal volume 400, FiO2 70%, to be dropped to 60%, PEEP of 10. Blood gases are reasonable, with a PO2 123, PCO2 of 50, pH of 7.46. The patient continues with a left Thora vent in place. This is secondary to a left-sided pneumothorax, after cardiopulmonary resuscitation. The patient continues on fentanyl, propofol, norepinephrine, and vasopressin. The sodium bicarbonate drip can be discontinued. The patient also continues on fluconazole, Flagyl, vancomycin, and Zosyn. All labs, x-rays, medications are reviewed. We will continue to follow the patient, make recommendations. Progno sis is certainly guarded. Dictation was produced using [employer] dictation software. Please excuse any grammatical, word or spelling errors. Time with Patient: Greater than 30
[2025-01-03 11:15] LABS: Glucose,Whole Blood 238 mg/dL (70-110)
[2025-01-03 11:38] LABS: Glucose,Whole Blood 236 mg/dL (70-110)
[2025-01-03] MEDS ORDERED: Potassium Replacement Protocol 1 EACH MISC MISCELLANE PRN (11:49)
[2025-01-03] MEDS: VANCOMYCIN 1,000 MG in SODIUM CHLORIDE 0.9% 250 ML IVPB SCH (12:26)
--- NOTE | 2025-01-03 15:22 | P.PN ---
Subjective Progress Note Date: 01/03/25 Principal diagnosis: Reason for follow-up is pneumonia/colitis Patient is a 44-year-old male with a past medical history significant for CVA TIA reflux history of recurrent/chronic pancreatitis from alcoholism and hypertension patient was brought into the hospital for lethargy seizure activity did have a cardiac arrest/V. tach requiring shock and subsequent admitted to the hospital.Patient did have a cardiac arrest last night patient is status post resuscitation intubation and transfer the ICU also have a right-sided pneumothorax. On today's visit that is 01/04/2024, patient did have a temperature of 96.4 F this afternoon the patient remains to be intubated on the vent currently on 60% FiO2 no significant purulent secretions agree the patient is requiring pressor support to maintain his blood pressure and the patient remains to be unresponsive. Patient white count is down to 19.68 creatinine 0.63, repeat cultures are pending Objective - Vital Signs Vital signs: Vital Signs Temp 95.5 F L 01/03/25 12:15 Pulse 92 01/03/25 12:15 Resp 22 01/03/25 12:15 BP 96/74 01/03/25 12:00 Pulse Ox 96 01/03/25 12:15 FiO2 60 01/03/25 12:15 Intake & Output 01/02/25 01/03/25 01/03/25 18:59 06:59 18:59 Intake Total 4027.893 2788.797 924.965 Output Total 515 800 250 Balance 3512.893 1988.797 674.965 Weight 56.7 kg 67.8 kg Intake: IV 2950 2450 667 .9NS KVO 80 .9NS Pressure Bag 12 Calcium Gluconate in NaCl 100 100 2 gm In Saline 1 100ml. bag @ 100 mls/hr IVPB ONCE ONE Rx#:[id number] Dextrose 5% in Water 1, 1650 1800 300 000 ml @ 150 mls/hr IV . Q7H40M VLAD with Sodium Bicarb (1 Meq/ml) 150 ml Rx#:[id number] Magnesium Sulfate-D5w Pmx 300 200 1 gm In Dextrose/Water 1 100ml.bag @ 100 mls/hr IVPB Q1H VLAD Rx#: [id number] Piperacillin-Tazobactam 3 200 .375 gm In Sodium Chloride 0.9% 100 ml @ 25 mls/hr IVPB Q8HR [facility] Rx# :[id number] Piperacillin-Tazobactam 3 100 75 .375 gm In Sodium Chloride 0.9% 100 ml @ 25 mls/hr IVPB Q8HR [facility] Rx# :[id number] Vancomycin 1,000 mg In 500 250 Sodium Chloride 0.9% 250 ml @ 125 mls/hr IVPB ONCE ONE Rx#:[id number] metroNIDAZOLE-NS PMX 500 200 100 100 mg In Saline 1 100ml.bag @ 100 mls/hr IVPB Q8HR [facility] Rx#:[id number] Intake, IV Titration 767.893 338.797 257.965 Amount Dextrose 5% in Water 1, 150 000 ml @ 150 mls/hr IV . Q7H40M VLAD with Sodium Bicarb (1 Meq/ml) 150 ml Rx#:[id number] Norepinephrine 8 mg In 357.778 151.799 65.389 Sodium Chloride 0.9% 250 ml @ 0.03 MCG/KG/MIN 3. 291 mls/hr IV .Q24H [facility] Rx#:[id number] Vasopressin 60 unit In 105.876 Sodium Chloride 0.9% 150 ml @ 0.03 UNITS/MIN 4.59 mls/hr IV .Q24H [facility] Rx#: [id number] fentaNYL (PF). 1,000 mcg 71.377 13.3 86.7 In Sodium Chloride 0.9% 80 ml @ 0.5 MCG/KG/HR 2. 66 mls/hr IV .Q24H [facility] Rx #:[id number] propofoL 1,000 mg In 188.738 173.698 Empty Bag 1 bag @ 15 MCG/ KG/MIN 4.788 mls/hr IV . [id number] [facility] Rx#:[id number] Blood Product 310 Rc As-1 Unit 310 [id number] Output: Chest Tube Drainage 80 0 Thora-Vent Left Anterior 80 0 Chest Urine 515 720 250 Other: Voiding Method Indwelling Catheter Indwelling Catheter # Bowel Movements 1 ABP, PAP, CO, CI - Last Documented Arterial Blood Pressure 103/74 - Exam GENERAL DESCRIPTION: Middle-age male intubated on the vent RESPIRATORY SYSTEM: Unlabored breathing , decreased breath sounds at bases HEART: S1 S2 regular rate and rhythm , ABDOMEN: Soft , no tenderness EXTREMITIES: No edema feet - Labs CBC & Chem 7: 01/03/25 06:36 01/03/25 11:12 Labs: Abnormal Lab Results - Last 24 Hours (Table) 01/02/25 01/02/25 01/02/25 Range/Units 06:03 06:03 10:30 WBC (4.50-10.00) 10*3/uL RBC (4.40-5.60) 10*6/uL Hgb (13.0-17.0) g/dL Hct (39.6-50.0) % Immature Gran # (0.00-0.04) 10*3/uL Neutrophils # (1.80-7.70) 10*3/uL Eosinophils # (0.04-0.35) 10*3/uL ABG pH (7.35-7.45) ABG pCO2 (35-45) mmHg ABG pO2 (83-108) mmHg ABG HCO3 (21-25) mmol/L ABG Total CO2 (19-24) mmol/L ABG O2 Saturation (94-97) % Hemoglobin (13.0-17.5) gm/dL Sodium (137-145) mmol/L Potassium (3.5-5.1) mmol/L Chloride (98-107) mmol/L Carbon Dioxide (22-30) mmol/L BUN (9-20) mg/dL Creatinine (0.66-1.25) mg/dL Glucose (74-99) mg/dL POC Glucose (mg/dL) (70-110) mg/dL Plasma Lactic Acid Sina (0.7-2.0) mmol/L Calcium (8.4-10.2) mg/dL Ionized Calcium Cisco (4.5-5.3) mg/dL Magnesium (1.6-2.3) mg/dL Alkaline Phosphatase (38-126) U/L Total Protein (6.3-8.2) g/dL Albumin (3.5-5.0) g/dL Procalcitonin 0.65 H (0.02-0.50) ng/mL Cortisol 29.5 H (3.1-22.4) UG/DL Crossmatch See Detail 01/02/25 01/02/25 01/02/25 Range/Units 13:53 13:53 17:33 WBC (4.50-10.00) 10*3/uL RBC (4.40-5.60) 10*6/uL Hgb (13.0-17.0) g/dL Hct (39.6-50.0) % Immature Gran # (0.00-0.04) 10*3/uL Neutrophils # (1.80-7.70) 10*3/uL Eosinophils # (0.04-0.35) 10*3/uL ABG pH (7.35-7.45) ABG pCO2 (35-45) mmHg ABG pO2 (83-108) mmHg ABG HCO3 (21-25) mmol/L ABG Total CO2 (19-24) mmol/L ABG O2 Saturation (94-97) % Hemoglobin (13.0-17.5) gm/dL Sodium (137-145) mmol/L Potassium 3.0 L (3.5-5.1) mmol/L Chloride (98-107) mmol/L Carbon Dioxide (22-30) mmol/L BUN (9-20) mg/dL Creatinine (0.66-1.25) mg/dL Glucose (74-99) mg/dL POC Glucose (mg/dL) (70-110) mg/dL Plasma Lactic Acid Sina 5.3 H* 4.5 H* (0.7-2.0) mmol/L Calcium (8.4-10.2) mg/dL Ionized Calcium Cisco (4.5-5.3) mg/dL Magnesium (1.6-2.3) mg/dL Alkaline Phosphatase (38-126) U/L Total Protein (6.3-8.2) g/dL Albumin (3.5-5.0) g/dL Procalcitonin (0.02-0.50) ng/mL Cortisol (3.1-22.4) UG/DL Crossmatch 01/02/25 01/02/25 01/02/25 Range/Units 17:33 18:05 21:00 WBC 24.18 H (4.50-10.00) 10*3/uL RBC 2.91 L (4.40-5.60) 10*6/uL Hgb 9.0 L D (13.0-17.0) g/dL Hct 26.5 L (39.6-50.0) % Immature Gran # 0.28 H (0.00-0.04) 10*3/uL Neutrophils # 20.96 H (1.80-7.70) 10*3/uL Eosinophils # (0.04-0.35) 10*3/uL ABG pH (7.35-7.45) ABG pCO2 (35-45) mmHg ABG pO2 (83-108) mmHg ABG HCO3 (21-25) mmol/L ABG Total CO2 (19-24) mmol/L ABG O2 Saturation (94-97) % Hemoglobin (13.0-17.5) gm/dL Sodium (137-145) mmol/L Potassium (3.5-5.1) mmol/L Chloride (98-107) mmol/L Carbon Dioxide (22-30) mmol/L BUN (9-20) mg/dL Creatinine (0.66-1.25) mg/dL Glucose (74-99) mg/dL POC Glucose (mg/dL) 328 H (70-110) mg/dL Plasma Lactic Acid Sina 5.1 H* (0.7-2.0) mmol/L Calcium (8.4-10.2) mg/dL Ionized Calcium Cisco (4.5-5.3) mg/dL Magnesium (1.6-2.3) mg/dL Alkaline Phosphatase (38-126) U/L Total Protein (6.3-8.2) g/dL Albumin (3.5-5.0) g/dL Procalcitonin (0.02-0.50) ng/mL Cortisol (3.1-22.4) UG/DL Crossmatch 01/02/25 01/02/25 01/03/25 Range/Units 21:00 23:50 04:00 WBC (4.50-10.00) 10*3/uL RBC (4.40-5.60) 10*6/uL Hgb (13.0-17.0) g/dL Hct (39.6-50.0) % Immature Gran # (0.00-0.04) 10*3/uL Neutrophils # (1.80-7.70) 10*3/uL Eosinophils # (0.04-0.35) 10*3/uL ABG pH (7.35-7.45) ABG pCO2 (35-45) mmHg ABG pO2 (83-108) mmHg ABG HCO3 (21-25) mmol/L ABG Total CO2 (19-24) mmol/L ABG O2 Saturation (94-97) % Hemoglobin (13.0-17.5) gm/dL Sodium (137-145) mmol/L Potassium 3.0 L 2.9 L (3.5-5.1) mmol/L Chloride (98-107) mmol/L Carbon Dioxide (22-30) mmol/L BUN (9-20) mg/dL Creatinine 0.61 L (0.66-1.25) mg/dL Glucose (74-99) mg/dL POC Glucose (mg/dL) 300 H (70-110) mg/dL Plasma Lactic Acid Sina (0.7-2.0) mmol/L Calcium (8.4-10.2) mg/dL Ionized Calcium Cisco (4.5-5.3) mg/dL Magnesium 1.5 L (1.6-2.3) mg/dL Alkaline Phosphatase (38-126) U/L Total Protein (6.3-8.2) g/dL Albumin (3.5-5.0) g/dL Procalcitonin (0.02-0.50) ng/mL Cortisol (3.1-22.4) UG/DL Crossmatch 01/03/25 01/03/25 01/03/25 Range/Units 05:42 06:13 06:36 WBC 19.68 H (4.50-10.00) 10*3/uL RBC 2.76 L (4.40-5.60) 10*6/uL Hgb 8.3 L (13.0-17.0) g/dL Hct 24.9 L (39.6-50.0) % Immature Gran # 0.20 H (0.00-0.04) 10*3/uL Neutrophils # 16.67 H (1.80-7.70) 10*3/uL Eosinophils # 0.50 H (0.04-0.35) 10*3/uL ABG pH 7.46 H (7.35-7.45) ABG pCO2 50 H (35-45) mmHg ABG pO2 123 H (83-108) mmHg ABG HCO3 35 H (21-25) mmol/L ABG Total CO2 37 H (19-24) mmol/L ABG O2 Saturation 99.3 H (94-97) % Hemoglobin 8.8 L (13.0-17.5) gm/dL Sodium (137-145) mmol/L Potassium (3.5-5.1) mmol/L Chloride (98-107) mmol/L Carbon Dioxide (22-30) mmol/L BUN (9-20) mg/dL Creatinine (0.66-1.25) mg/dL Glucose (74-99) mg/dL POC Glucose (mg/dL) 334 H (70-110) mg/dL Plasma Lactic Acid Sina (0.7-2.0) mmol/L Calcium (8.4-10.2) mg/dL Ionized Calcium Cisco (4.5-5.3) mg/dL Magnesium (1.6-2.3) mg/dL Alkaline Phosphatase (38-126) U/L Total Protein (6.3-8.2) g/dL Albumin (3.5-5.0) g/dL Procalcitonin (0.02-0.50) ng/mL Cortisol (3.1-22.4) UG/DL Crossmatch 01/03/25 01/03/25 01/03/25 Range/Units 06:36 11:13 11:36 WBC (4.50-10.00) 10*3/uL RBC (4.40-5.60) 10*6/uL Hgb (13.0-17.0) g/dL Hct (39.6-50.0) % Immature Gran # (0.00-0.04) 10*3/uL Neutrophils # (1.80-7.70) 10*3/uL Eosinophils # (0.04-0.35) 10*3/uL ABG pH (7.35-7.45) ABG pCO2 (35-45) mmHg ABG pO2 (83-108) mmHg ABG HCO3 (21-25) mmol/L ABG Total CO2 (19-24) mmol/L ABG O2 Saturation (94-97) % Hemoglobin (13.0-17.5) gm/dL Sodium 134 L (137-145) mmol/L Potassium 2.9 L (3.5-5.1) mmol/L Chloride 94 L (98-107) mmol/L Carbon Dioxide 35 H (22-30) mmol/L BUN 2 L (9-20) mg/dL Creatinine 0.63 L (0.66-1.25) mg/dL Glucose 293 H (74-99) mg/dL POC Glucose (mg/dL) 238 H 236 H (70-110) mg/dL Plasma Lactic Acid Sina (0.7-2.0) mmol/L Calcium 5.3 L* (8.4-10.2) mg/dL Ionized Calcium Cisco 3.4 L* (4.5-5.3) mg/dL Magnesium (1.6-2.3) mg/dL Alkaline Phosphatase 178 H (38-126) U/L Total Protein 3.4 L (6.3-8.2) g/dL Albumin 1.4 L (3.5-5.0) g/dL Procalcitonin (0.02-0.50) ng/mL Cortisol (3.1-22.4) UG/DL Crossmatch Microbiology - Last 24 Hours (Table) 12/31/24 09:04 Gram Stain - Preliminary Sputum Sputum Culture - Preliminary Yeast Yeast#2 Assessment and Plan (1) Sepsis Current Visit: Yes Status: Acute Code(s): A41.9 - SEPSIS, UNSPECIFIED ORGANISM SNOMED Code(s): 36880755 (2) Aspiration pneumonitis Current Visit: Yes Status: Acute Code(s): J69.0 - PNEUMONITIS DUE TO INHALATION OF FOOD AND VOMIT SNOMED Code(s): 870531695 (3) Colitis Current Visit: Yes Status: Acute Code(s): K52.9 - NONINFECTIVE GASTR OENTERITIS AND COLITIS, UNSPECIFIED SNOMED Code(s): 16819091 (4) Cholecystitis Current Visit: Yes Status: Acute Code(s): K81.9 - CHOLECYSTITIS, UNSPECIFIED SNOMED Code(s): 22218028 Plan: 1patient presented to hospital with sepsis in this patient who did have tachycardia hypotension elevated white count meeting criteria for SIRS source likely aspiration pneumonitis as the patient did have intractable nausea vomitin g before the patient has been brought to the hospital patient also have abnormality on the abdominal pelvis CT concerning for colitis question of infectious etiology need to be ruled out patient did not recall if he has been on antibiotic in the recent past 2-sputum cultures collected on 12/31/2024 reported as yeast 3-patient CT as well as ultrasound has been suspicious for cholecystitis HIDA scan has been suspicious for chronic cholecystitis General Surgery following the patient 4patient did have a cardiac arrest now intubated in the ICU hypotension requiring pressor support repeat cultures currently pending however therapy did have a negative MRSA nasal screen 5will recommend to continue patient on Zosyn however discontinue vancomycin to decrease risk of nephrotoxicity Dictation was produced using [employer] dictation software. please excuse any grammatical, word or spelling errors.
[2025-01-03 18:21] LABS: Glucose,Whole Blood 93 mg/dL (70-110)
--- NOTE | 2025-01-03 20:21 | P.PN ---
Subjective Progress Note Date: 01/03/25 This is a pleasant 44-year-old male who was recently admitted after brief cardiac arrest with multiple electrolyte abnormalities being closely monitored. Patient being followed by cardiology and is status post cardiac catheterization recommending maximizing medical management and normal coronary arteries noted. Patient reports to having increasing pain and also generalized weakness although reports will be going home on discharge. Patient did have an elevated white count that had been trending down although is slightly up today with infectious disease following and will repeat CT abdomen for further evaluation. Continue current antibiotics at this time. Case management is following as plan is for LifeVest on discharge. Recommend incentive spirometer as patient is requiring oxygen and may require oxygen on discharge. Will reattempt home oxygen evaluation. Encourage increase activity as tolerated with sitting up out of the bed more frequently. Labs reviewed and white count is 25.52, hemoglobin is 8.8, platelets 446, sodium 137 with a potassium of 3.5, BUN is 5 and creatinine 0.33. Calcium is slightly low at 6.2, total bili is 1.4. 12/31/2024 Patient is seen in follow-up with multiple consultations following. White count was elevated although slightly improving with infectious disease following we will continue current regimen at this time. Patient continues to report short ness of breath and generalized pain and continues to require oxygen. Will need home O2 assessment. Patient underwent CT abdomen and will consult general surgery for evaluation. Encouraged increased activity as tolerated with sitting up more frequently in the chair. 01/01/2025 Patient seen and evaluated this morning currently scheduled to undergo HIDA scan per general surgery and patient is currently requesting increase in pain medications as she reports diffuse pain. Pain medications through the IV are currently on hold as patient will be undergoing HIDA scan. Patient's white count is elevated with infectious disease following maintained on Zosyn and will continue. Patient is afebrile with no reports of chest pain or palpitations. Patient is reporting some congestion and occasional shortness of breath. Will order chest x-ray as well. Continue DuoNeb treatments and supplemental oxygen as needed. Patient currently maintained on 5 L. Would recommend PT/OT therapy evaluation as patient has had prolonged cough elevation and appears frail and extremely weak. 01/02/2025 Patient is seen in follow-up was a CODE BLUE on 3 S. and was transferred to ICU intubated for respiratory arrest with cardiac arrest and ROSC received. Patient remains a full code per sister and will continue on mechanical ventilation with an FiO2 of 100% and PEEP of 10 currently. Blood pressures are soft and patient is maintained on pressor support and hemoglobin was noted to be 6.9 this morning and will give 1 unit of PRBC. White count remains elevated at 24.18 and maintained on antibiotics with infectious disease following. Sodium is 141 with a potassium of 3.0, creatinine 0.48, blood sugars elevated, lactic acid 5.1 with a calcium that is low at 5.6, magnesium 1.2. Prognosis remains extremely guarded and CODE STATUS needs to be addressed again. 01/03/2025 Patient is seen in follow-up in the ICU maintained on mechanical ventilation and FiO2 was adjusted per pulmonary production operations engineer but FiO2 is currently 60%. Patient maintained on pressor support including Levophed and vasopressin and also receiving Lasix. Blood sugars have been elevated and will adjust insulins accordingly including increasing long-acting. Patient is continued on tube feeds and will continue at this time. Per nursing staff patient did require Chris hugger for some time for hypothermia. Hemoglobin is stable at 8.3 status post 1 unit of PRBC, white count remains elevated at 19.68, sodium is 134 and potassium was again 2.9 with replacement of 3.5 and continued on protocol creatinine is stable at 0.63. Preliminary sputum culture from 12/31/2024 showing yeast species. Review of systems: Unable to assess as patient is now intubated and sedated All medications have been reviewed PHYSICAL EXAMINATION: GENERAL: The patient is alert and oriented x0, placed back on mechanical vent with an FiO2 of 60 % and PEEP is 10. Well developed, elderly appearing, thin built, cachectic, chronically ill-appearing HEENT: Pupils are round and equally reacting to light. EOMI. no scleral icterus. No conjunctival pallor. Normocephalic, atraumatic. No pharyngeal erythema. No thyromegaly. CARDIOVASCULAR: S1 and S2 muffled PULMONARY: diminished breath sounds bilaterally with no wheezing, scattered coarse rhonchi noted with upper bronchial congestion. Crackles noted at the bases ABDOMEN: soft. Nontender on exam. Thin non-distended, normoactive bowel sounds. No palpable organomegaly. MUSCULOSKELETAL: No joint swelling or deformity. EXTREMITIES: No cyanosis, clubbing, or pedal edema. NEUROLOGICAL: Gross neurological examination did not reveal any focal deficits. Unable to completely assess as patient is sedated and on mechanical ventilation SKIN: No rashes. Extremely pale Assessment: Cardiac arrest, possibly secondary to ventricular tachycardia secondary to multiple electrolyte abnormalities Respiratory arrest with cardiac arrest requiring mechanical ventilation 01/01/2025 Severe hypokalemia, hypomagnesemia, hypocalcemia, improving after replacement History of EtOH Nonischemic cardiomyopathy possible Takotsubo, EF was 20 to 25%, repeat is 30- 35, being fitted for LifeVest Possible acute colitis as noted on imaging Diabetes mellitus, type II, uncontrolled with hyperglycemia History of pancreatitis Tachycardia Anemia, chronic, hemoglobin 6.9 today and being transfused 1 unit of PRBC 12/15 Concerns of possible right lower lobe pneumonia, possibly aspiration History of splenic vein thrombosis, was on Eliquis Hepatic encephalopathy Moderate protein calorie malnutrition with a BMI of 17.7 GI prophylaxis DVT prophylaxis Full code Plan: Recommend to continue with current medications and management with multiple consultations following. Patient had respiratory arrest with cardiac arrest overnight and was placed on mechanical ventilation and is now in the ICU continued on sedatives and pressor support. Weaning pressor support and sedation as tolerated per nursing staff today infectious disease following as white count remains elevated and patient is maintained on antibiotics and will continue. General surgery following as there was concern of cholecystitis with discussion of possible surgical intervention although no plans for intervention at this time Cardiology following and patient is status post catheterization recommending maximizing medical management and case management following and has received LifeVest Continue monitoring Accu-Cheks AC and at bedtime and adjust accordingly Follow-up on repeat labs and replace electrolytes per protocol. Replace potas sium and magnesium Per nursing staff sister reports patient is full code and to remain full code. CODE STATUS needs to be readdressed and overall prognosis is extremely poor and guarded at this time The impression and plan of care has been dictated by Ana Duggan, nurse practitioner as directed. Dr. Yara MD I have performed a history and examination and MDM of this patient, discussed the same with the dictator, and agree with the dictator's assessment and plan as written ,documented as a scribe. Based on total visit time, I have performed more than 50% of the visit. Any additional findings or plans will be noted. Objective - Vital Signs Vital signs: Vital Signs Temp 98.8 F 01/03/25 20:00 Pulse 93 01/03/25 20:11 Resp 22 01/03/25 20:00 BP 98/72 01/03/25 20:00 Pulse Ox 95 01/03/25 20:00 FiO2 60 01/03/25 20:12 Intake & Output 01/03/25 01/03/25 01/04/25 06:59 18:59 06:59 Intake Total 2788.797 2196.198 264.195 Output Total 800 895 95 Balance 7180.029 1242.198 169.195 Weight 67.8 kg Intake: IV 2450 878 66 .9NS KVO 270 60 .9NS Pressure Bag 33 6 Calcium Gluconate in NaCl 100 2 gm In Saline 1 100ml. bag @ 100 mls/hr IVPB ONCE ONE Rx#:[id number] Dextrose 5% in Water 1, 1800 300 000 ml @ 150 mls/hr IV . Q7H40M VLAD with Sodium Bicarb (1 Meq/ml) 150 ml Rx#:[id number] Magnesium Sulfate-D5w Pmx 200 1 gm In Dextrose/Water 1 100ml.bag @ 100 mls/hr IVPB Q1H [facility] Rx#: [id number] Piperacillin-Tazobactam 3 100 75 .375 gm In Sodium Chloride 0.9% 100 ml @ 25 mls/hr IVPB Q8HR [facility] Rx# :[id number] Vancomycin 1,000 mg In 250 Sodium Chloride 0.9% 250 ml @ 125 mls/hr IVPB ONCE ONE Rx#:[id number] metroNIDAZOLE-NS PMX 500 100 100 mg In Saline 1 100ml.bag @ 100 mls/hr IVPB Q8HR [facility] Rx#:[id number] Intake, IV Titration 285.730 2391.198 148.195 Amount Norepinephrine 8 mg In 151.799 105.819 Sodium Chloride 0.9% 250 ml @ 0.03 MCG/KG/MIN 3. 291 mls/hr IV .Q24H [facility] Rx#:[id number] Vancomycin 1,000 mg In 750 125 Sodium Chloride 0.9% 250 ml @ 125 mls/hr IVPB Q12H [facility] Rx#:[id number] Vasopressin 60 unit In 105.876 Sodium Chloride 0.9% 150 ml @ 0.03 UNITS/MIN 4.59 mls/hr IV .Q24H [facility] Rx#: [id number] fentaNYL (PF). 1,000 mcg 13.3 88.385 In Sodium Chloride 0.9% 80 ml @ 0.5 MCG/KG/HR 2. 66 mls/hr IV .Q24H [facility] Rx #:[id number] propofoL 1,000 mg In 173.698 138.118 23.195 Empty Bag 1 bag @ 15 MCG/ KG/MIN 4.788 mls/hr IV . [id number] [facility] Rx#:[id number] Tube Feeding 70 20 Other 60 30 Output: Chest Tube Drainage 80 15 0 Thora-Vent Left Anterior 80 15 0 Chest Urine 720 880 95 Other: Voiding Method Indwelling Catheter Indwelling Catheter # Bowel Movements 1 ABP, PAP, CO, CI - Last Documented Arterial Blood Pressure 94/71 - Labs CBC & Chem 7: 01/03/25 06:36 01/03/25 14:34 Labs: Abnormal Lab Results - Last 24 Hours (Table) 01/02/25 01/02/25 01/02/25 Range/Units 21:00 21:00 23:50 WBC (4.50-10.00) 10*3/uL RBC (4.40-5.60) 10*6/uL Hgb (13.0-17.0) g/dL Hct (39.6-50.0) % Immature Gran # (0.00-0.04) 10*3/uL Neutrophils # (1.80-7.70) 10*3/uL Eosinophils # (0.04-0.35) 10*3/uL ABG pH (7.35-7.45) ABG pCO2 (35-45) mmHg ABG pO2 (83-108) mmHg ABG HCO3 (21-25) mmol/L ABG Total CO2 (19-24) mmol/L ABG O2 Saturation (94-97) % Hemoglobin (13.0-17.5) gm/dL Sodium (137-145) mmol/L Potassium 3.0 L (3.5-5.1) mmol/L Chloride (98-107) mmol/L Carbon Dioxide (22-30) mmol/L BUN (9-20) mg/dL Creatinine (0.66-1.25) mg/dL Glucose (74-99) mg/dL POC Glucose (mg/dL) 300 H (70-110) mg/dL Plasma Lactic Acid Sina 5.1 H* (0.7-2.0) mmol/L Calcium (8.4-10.2) mg/dL Ionized Calcium Cisco (4.5-5.3) mg/dL Magnesium (1.6-2.3) mg/dL Alkaline Phosphatase (38-126) U/L Total Protein (6.3-8.2) g/dL Albumin (3.5-5.0) g/dL 01/03/25 01/03/25 01/03/25 Range/Units 04:00 05:42 06:13 WBC (4.50-10.00) 10*3/uL RBC (4.40-5.60) 10*6/uL Hgb (13.0-17.0) g/dL Hct (39.6-50.0) % Immature Gran # (0.00-0.04) 10*3/uL Neutrophils # (1.80-7.70) 10*3/uL Eosinophils # (0.04-0.35) 10*3/uL ABG pH 7.46 H (7.35-7.45) ABG pCO2 50 H (35-45) mmHg ABG pO2 123 H (83-108) mmHg ABG HCO3 35 H (21-25) mmol/L ABG Total CO2 37 H (19-24) mmol/L ABG O2 Saturation 99.3 H (94-97) % Hemoglobin 8.8 L (13.0-17.5) gm/dL Sodium (137-145) mmol/L Potassium 2.9 L (3.5-5.1) mmol/L Chloride (98-107) mmol/L Carbon Dioxide (22-30) mmol/L BUN (9-20) mg/dL Creatinine 0.61 L (0.66-1.25) mg/dL Glucose (74-99) mg/dL POC Glucose (mg/dL) 334 H (70-110) mg/dL Plasma Lactic Acid Sina (0.7-2.0) mmol/L Calcium (8.4-10.2) mg/dL Ionized Calcium Cisco (4.5-5.3) mg/dL Magnesium 1.5 L (1.6-2.3) mg/dL Alkaline Phosphatase (38-126) U/L Total Protein (6.3-8.2) g/dL Albumin (3.5-5.0) g/dL 01/03/25 01/03/25 01/03/25 Range/Units 06:36 06:36 11:13 WBC 19.68 H (4.50-10.00) 10*3/uL RBC 2.76 L (4.40-5.60) 10*6/uL Hgb 8.3 L (13.0-17.0) g/dL Hct 24.9 L (39.6-50.0) % Immature Gran # 0.20 H (0.00-0.04) 10*3/uL Neutrophils # 16.67 H (1.80-7.70) 10*3/uL Eosinophils # 0.50 H (0.04-0.35) 10*3/uL ABG pH (7.35-7.45) ABG pCO2 (35-45) mmHg ABG pO2 (83-108) mmHg ABG HCO3 (21-25) mmol/L ABG Total CO2 (19-24) mmol/L ABG O2 Saturation (94-97) % Hemoglobin (13.0-17.5) gm/dL Sodium 134 L (137-145) mmol/L Potassium 2.9 L (3.5-5.1) mmol/L Chloride 94 L (98-107) mmol/L Carbon Dioxide 35 H (22-30) mmol/L BUN 2 L (9-20) mg/dL Creatinine 0.63 L (0.66-1.25) mg/dL Glucose 293 H (74-99) mg/dL POC Glucose (mg/dL) 238 H (70-110) mg/dL Plasma Lactic Acid Sina (0.7-2.0) mmol/L Calcium 5.3 L* (8.4-10.2) mg/dL Ionized Calcium Cisco 3.4 L* (4.5-5.3) mg/dL Magnesium (1.6-2.3) mg/dL Alkaline Phosphatase 178 H (38-126) U/L Total Protein 3.4 L (6.3-8.2) g/dL Albumin 1.4 L (3.5-5.0) g/dL 01/03/25 Range/Units 11:36 WBC (4.50-10.00) 10*3/uL RBC (4.40-5.60) 10*6/uL Hgb (13.0-17.0) g/dL Hct (39.6-50.0) % Immature Gran # (0.00-0.04) 10*3/uL Neutrophils # (1.80-7.70) 10*3/uL Eosinophils # (0.04-0.35) 10*3/uL ABG pH (7.35-7.45) ABG pCO2 (35-45) mmHg ABG pO2 (83-108) mmHg ABG HCO3 (21-25) mmol/L ABG Total CO2 (19-24) mmol/L ABG O2 Saturation (94-97) % Hemoglobin (13.0-17.5) gm/dL Sodium (137-145) mmol/L Potassium (3.5-5.1) mmol/L Chloride (98-107) mmol/L Carbon Dioxide (22-30) mmol/L BUN (9-20) mg/dL Creatinine (0.66-1.25) mg/dL Glucose (74-99) mg/dL POC Glucose (mg/dL) 236 H (70-110) mg/dL Plasma Lactic Acid Sina (0.7-2.0) mmol/L Calcium (8.4-10.2) mg/dL Ionized Calcium Cisco (4.5-5.3) mg/dL Magnesium (1.6-2.3) mg/dL Alkaline Phosphatase (38-126) U/L Total Protein (6.3-8.2) g/dL Albumin (3.5-5.0) g/dL Microbiology - Last 24 Hours (Table) 01/02/25 00:00 Nasal Screen MRSA/MSSA - Final Nasal Swab
[2025-01-03] MEDS: POTASSIUM CHLORIDE 10 MEQ in WATER FOR INJECTION 1 100ML.BAG IVPB SCH (20:25)
--- NOTE | 2025-01-03 20:42 | P.PN ---
Subjective Progress Note Date: 01/03/25 HISTORY OF PRESENT ILLNESS: This is a 44-year-old male with a past medical history significant for syncope, pancreatitis, splenic vein thrombosis, and alcohol abuse. 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 We have been asked to see the patient in consultation for cardiac arrest. Apparently the patient was having altered mental status at home and EMS was called. Patient was found to be in ventric ular tachycardia and CPR was started. 1 shock was delivered. The patient then had ROSC. Apparently no medications were given. The patient is seen and examined at the bedside in the emergency room. Patient is awake and alert. He currently denies any chest pain or pressure. Denies any shortness of breath. Patient does not remember any of the episodes that happened this morning. He just remembers waking up in the ambulance. He states he has not had any alcohol to drink in 2 to 3 days. He does state he has a history of alcohol abuse and drinks twisted teas. DIAGNOSTICS: - EKG reveals sinus tachycardia with no signs of acute ischemia. - Chest xray negative for acute process. - Laboratory data: WBC 13.81. Hemoglobin 10.7. Platelet count 356. Sodium 135. Potassium 2.3. BUN 5. Creatinine 0.31. Calcium 4.1. Magnesium 0.5. AST 223. ALT 55. Troponin 0.022. proBNP 329. - Current home cardiac medication list is not updated at the time of this dictation - No previous echocardiogram, stress test, or cardiac catheterization available in EMR for review 12/27/2024 Patient examined this morning at the bedside. Patient currently denies any chest pain or pressure. He denies shortness of breath. Vital signs are stable. Echocardiogram completed revealing ejection fraction 20 to 25%, anterior apical, apical lateral and apical akinesis, possible Takotsubo, mild aortic and mitral regurgitation, mild tricuspid regurgitation 12/28/2024 Patient examined this morning at the bedside. Patient without complaints of chest pain or pressure. He denies shortness of breath. Repeat limited echo performed revealed ejection fraction 30 to 35%, apex akinetic 12/29/2024 Patient seen and examined. Patient denies chest pain or chest pressure. He denies shortness of breath. He is scheduled for cardiac catheterization today which will be done by Dr. Rosario. Blood pressure 98/67, heart rate 109, pulse ox 96% on room air. Repeat blood work reveals WBC 22.8, hemoglobin 8.6. Sodium 136, potassium 3.4, BUN 3 and creatinine 0.3. Calcium 6.4. AST 61, alkaline phosphatase 291. Repeat chest x-ray reveals multifocal airspace opacities concerning for pneumonia 12/30/2024 Patient seen and examined. Yesterday, he underwent cardiac catheterization with Dr. Rosario which revealed normal coronary arteries. Cardiomyopathy is nonischemic in etiology. Repeat chest x-ray reveals multifocal airspace opacities concerning for pneumonia. Blood pressure 100/65, heart rate 102, pulse ox 99% on room air. 12/31/2024 Patient seen and examined. [facility] is in his room. Home patient does complain of soreness in his chest from CPR. He states he got up to the bathroom today and was feeling dizzy. Blood pressure 110/73, heart rate 105, pulse ox 88% on 6 L high flow nasal cannula. Patient is followed by infectious disease for possible colitis Abdominal ultrasound revealed thickened gallbladder wall. Correlate for signs of cholecystitis. Consider HIDA. Severe hepatic steatosis. CT abdomen pelvis: Moderate fatty infiltration of the liver. Consider cholecystitis. Correlate for underlying colitis. Bilateral small pleural effusions. 01/01/2025 Patient seen and examined. He denies chest pain or chest pressure. He is being followed by infectious disease and general surgery for cholecystitis or colitis. He is on IV antibiotics. Blood pressure 106/73, heart rate 109, pulse ox 94% on 12 L nasal cannula. Repeat blood work reveals WBC 19, hemoglobin 8.2, sodium 134, potassium 3.5 and creatinine 0.34. Alkaline phosphatase 288. 01/03/2021 On 01/02/2025 patient had a CODE BLUE and got return of spontaneous circulation and got intubated. Currently is maintained on ventilatory support, he is on norepinephrine vasopressin and is receiving Lasix. Blood glucose was elevated, BP 94/71, heart rate 93 PHYSICAL EXAM: VITAL SIGNS: Reviewed. GENERAL: Well-developed in no acute distress. HEENT: Head is normocephalic. Pupils are equal, round. Sclerae anicteric. Mucous membranes of the mouth are moist. Neck supple. No JVD or thyromegaly LUNGS: Respirations even and unlabored. Lungs essentially clear to auscultation bilaterally. HEART: Regular rate and rhythm. S1 and S2 heard. ABDOMEN: Soft. Nondistended. Nontender. EXTREMITIES: No clubbing or cyanosis. Peripheral pulses intact. No lower extremity edema NEUROLOGIC: Awake and alert. Oriented x 3. ASSESSMENT: [id number] cardiac arrest likely from V. tach. Repeat cardiac arrest likely from V. tach on 01/02/2025 Cardiomyopathy, EF 20 to 25%, nonischemic, possible Takotsubo, repeat echo 30- 35% Multiple electrolyte imbalance with hypokalemia, hypomagnesemia, hypocalcemia Alcoholic liver disease with evidence of cirrhosis and poor synthetic function, and elevated MELD score History of alcohol abuse History of pancreatitis History of splenic vein thrombosis, previously on Eliquis History of syncope Aspiration pneumonitis Colitis Possible cholecystitis Acute hypoxic respiratory failure PLAN: Overall prognosis very poor. Continue supportive care from ICU Amiodarone 200 mg daily, Lasix 40 IV twice daily Reintroduce GDMT as blood pressure and heart rate tolerates Objective - Vital Signs Vital signs: Vital Signs Temp 98.8 F 01/03/25 20:00 Pulse 101 H 01/03/25 20:22 Resp 22 01/03/25 20:00 BP 98/72 01/03/25 20:00 Pulse Ox 95 01/03/25 20:00 FiO2 60 01/03/25 20:12 Intake & Output 01/03/25 01/03/25 01/04/25 06:59 18:59 06:59 Intake Total 2788.797 2196.198 264.195 Output Total 800 895 95 Balance 0063.884 4595.198 169.195 Weight 67.8 kg Intake: IV 2450 878 66 .9NS KVO 270 60 .9NS Pressure Bag 33 6 Calcium Gluconate in NaCl 100 2 gm In Saline 1 100ml. bag @ 100 mls/hr IVPB ONCE ONE Rx#:[id number] Dextrose 5% in Water 1, 1800 300 000 ml @ 150 mls/hr IV . Q7H40M VLAD with Sodium Bicarb (1 Meq/ml) 150 ml Rx#:[id number] Magnesium Sulfate-D5w Pmx 200 1 gm In Dextrose/Water 1 100ml.bag @ 100 mls/hr IVPB Q1H VLAD Rx#: [id number] Piperacillin-Tazobactam 3 100 75 .375 gm In Sodium Chloride 0.9% 100 ml @ 25 mls/hr IVPB Q8HR [facility]AD Rx# :[id number] Vancomycin 1,000 mg In 250 Sodium Chloride 0.9% 250 ml @ 125 mls/hr IVPB ONCE ONE Rx#:[id number] metroNIDAZOLE-NS PMX 500 100 100 mg In Saline 1 100ml.bag @ 100 mls/hr IVPB Q8HR [facility] Rx#:[id number] Intake, IV Titration 201.530 5663.198 148.195 Amount Norepinephrine 8 mg In 151.799 105.819 Sodium Chloride 0.9% 250 ml @ 0.03 MCG/KG/MIN 3. 291 mls/hr IV .Q24H [facility]AD Rx#:[id number] Vancomycin 1,000 mg In 750 125 Sodium Chloride 0.9% 250 ml @ 125 mls/hr IVPB Q12H [facility] Rx#:[id number] Vasopressin 60 unit In 105.876 Sodium Chloride 0.9% 150 ml @ 0.03 UNITS/MIN 4.59 mls/hr IV .Q24H [facility] Rx#: [id number] fentaNYL (PF). 1,000 mcg 13.3 88.385 In Sodium Chloride 0.9% 80 ml @ 0.5 MCG/KG/HR 2. 66 mls/hr IV .Q24H [facility] Rx #:[id number] propofoL 1,000 mg In 173.698 138.118 23.195 Empty Bag 1 bag @ 15 MCG/ KG/MIN 4.788 mls/hr IV . [id number] [facility] Rx#:[id number] Tube Feeding 70 20 Other 60 30 Output: Chest Tube Drainage 80 15 0 Thora-Vent Left Anterior 80 15 0 Chest Urine 720 880 95 Other: Voiding Method Indwelling Catheter Indwelling Catheter # Bowel Movements 1 ABP, PAP, CO, CI - Last Documented Arterial Blood Pressure 94/71 - Labs CBC & Chem 7: 01/03/25 06:36 01/03/25 14:34 Labs: Abnormal Lab Results - Last 24 Hours (Table) 01/02/25 01/02/25 01/02/25 Range/Units 21:00 21:00 23:50 WBC (4.50-10.00) 10*3/uL RBC (4.40-5.60) 10*6/uL Hgb (13.0-17.0) g/dL Hct (39.6-50.0) % Immature Gran # (0.00-0.04) 10*3/uL Neutrophils # (1.80-7.70) 10*3/uL Eosinophils # (0.04-0.35) 10*3/uL ABG pH (7.35-7.45) ABG pCO2 (35-45) mmHg ABG pO2 (83-108) mmHg ABG HCO3 (21-25) mmol/L ABG Total CO2 (19-24) mmol/L ABG O2 Saturation (94-97) % Hemoglobin (13.0-17.5) gm/dL Sodium (137-145) mmol/L Potassium 3.0 L (3.5-5.1) mmol/L Chloride (98-107) mmol/L Carbon Dioxide (22-30) mmol/L BUN (9-20) mg/dL Creatinine (0.66-1.25) mg/dL Glucose (74-99) mg/dL POC Glucose (mg/dL) 300 H (70-110) mg/dL Plasma Lactic Acid Sina 5.1 H* (0.7-2.0) mmol/L Calcium (8.4-10.2) mg/dL Ionized Calcium Cisco (4.5-5.3) mg/dL Magnesium (1.6-2.3) mg/dL Alkaline Phosphatase (38-126) U/L Total Protein (6.3-8.2) g/dL Albumin (3.5-5.0) g/dL 01/03/25 01/03/25 01/03/25 Range/Units 04:00 05:42 06:13 WBC (4.50-10.00) 10*3/uL RBC (4.40-5.60) 10*6/uL Hgb (13.0-17.0) g/dL Hct (39.6-50.0) % Immature Gran # (0.00-0.04) 10*3/uL Neutrophils # (1.80-7.70) 10*3/uL Eosinophils # (0.04-0.35) 10*3/uL ABG pH 7.46 H (7.35-7.45) ABG pCO2 50 H (35-45) mmHg ABG pO2 123 H (83-108) mmHg ABG HCO3 35 H (21-25) mmol/L ABG Total CO2 37 H (19-24) mmol/L ABG O2 Saturation 99.3 H (94-97) % Hemoglobin 8.8 L (13.0-17.5) gm/dL Sodium (137-145) mmol/L Potassium 2.9 L (3.5-5.1) mmol/L Chloride (98-107) mmol/L Carbon Dioxide (22-30) mmol/L BUN (9-20) mg/dL Creatinine 0.61 L (0.66-1.25) mg/dL Glucose (74-99) mg/dL POC Glucose (mg/dL) 334 H (70-110) mg/dL Plasma Lactic Acid Sina (0.7-2.0) mmol/L Calcium (8.4-10.2) mg/dL Ionized Calcium Cisco (4.5-5.3) mg/dL Magnesium 1.5 L (1.6-2.3) mg/dL Alkaline Phosphatase (38-126) U/L Total Protein (6.3-8.2) g/dL Albumin (3.5-5.0) g/dL 01/03/25 01/03/25 01/03/25 Range/Units 06:36 06:36 11:13 WBC 19.68 H (4.50-10.00) 10*3/uL RBC 2.76 L (4.40-5.60) 10*6/uL Hgb 8.3 L (13.0-17.0) g/dL Hct 24.9 L (39.6-50.0) % Immature Gran # 0.20 H (0.00-0.04) 10*3/uL Neutrophils # 16.67 H (1.80-7.70) 10*3/uL Eosinophils # 0.50 H (0.04-0.35) 10*3/uL ABG pH (7.35-7.45) ABG pCO2 (35-45) mmHg ABG pO2 (83-108) mmHg ABG HCO3 (21-25) mmol/L ABG Total CO2 (19-24) mmol/L ABG O2 Saturation (94-97) % Hemoglobin (13.0-17.5) gm/dL Sodium 134 L (137-145) mmol/L Potassium 2.9 L (3.5-5.1) mmol/L Chloride 94 L (98-107) mmol/L Carbon Dioxide 35 H (22-30) mmol/L BUN 2 L (9-20) mg/dL Creatinine 0.63 L (0.66-1.25) mg/dL Glucose 293 H (74-99) mg/dL POC Glucose (mg/dL) 238 H (70-110) mg/dL Plasma Lactic Acid Sina (0.7-2.0) mmol/L Calcium 5.3 L* (8.4-10.2) mg/dL Ionized Calcium Cisco 3.4 L* (4.5-5.3) mg/dL Magnesium (1.6-2.3) mg/dL Alkaline Phosphatase 178 H (38-126) U/L Total Protein 3.4 L (6.3-8.2) g/dL Albumin 1.4 L (3.5-5.0) g/dL 01/03/25 Range/Units 11:36 WBC (4.50-10.00) 10*3/uL RBC (4.40-5.60) 10*6/uL Hgb (13.0-17.0) g/dL Hct (39.6-50.0) % Immature Gran # (0.00-0.04) 10*3/uL Neutrophils # (1.80-7.70) 10*3/uL Eosinophils # (0.04-0.35) 10*3/uL ABG pH (7.35-7.45) ABG pCO2 (35-45) mmHg ABG pO2 (83-108) mmHg ABG HCO3 (21-25) mmol/L ABG Total CO2 (19-24) mmol/L ABG O2 Saturation (94-97) % Hemoglobin (13.0-17.5) gm/dL Sodium (137-145) mmol/L Potassium (3.5-5.1) mmol/L Chloride (98-107) mmol/L Carbon Dioxide (22-30) mmol/L BUN (9-20) mg/dL Creatinine (0.66-1.25) mg/dL Glucose (74-99) mg/dL POC Glucose (mg/dL) 236 H (70-110) mg/dL Plasma Lactic Acid Sina (0.7-2.0) mmol/L Calcium (8.4-10.2) mg/dL Ionized Calcium Cisco (4.5-5.3) mg/dL Magnesium (1.6-2.3) mg/dL Alkaline Phosphatase (38-126) U/L Total Protein (6.3-8.2) g/dL Albumin (3.5-5.0) g/dL Microbiology - Last 24 Hours (Table) 01/02/25 00:00 Nasal Screen MRSA/MSSA - Final Nasal Swab
[2025-01-03 23:24] LABS: Glucose,Whole Blood 79 mg/dL (70-110)
[2025-01-04 04:35] LABS: Basophils # (A) 0.06 10*3/uL (0.00-0.10); Basophils % (A) 0.3 %; Eosinophils # (A) 0.39 10*3/uL (0.04-0.35); Eosinophils % (A) 1.7 %; HCT 26.7 % (39.6-50.0); HGB 9.0 g/dL (13.0-17.0); Lymphocytes # (A) 2.08 10*3/uL (0.90-5.00); Lymphocytes % (A) 9.0 %; MCH 30.7 pg (27.0-32.0); MCHC 33.7 g/dL (32.0-37.0); MCV 91.1 fL (80.0-97.0); Monocytes # (A) 0.54 10*3/uL (0.20-1.00); Monocytes % (A) 2.3 %; Neutrophils # (A) 19.91 10*3/uL (1.80-7.70); Neutrophils % (A) 86.0 %; Platelet Count 319 10*3/uL (140-440); RBC 2.93 10*6/uL (4.40-5.60); RDW 20.3 % (11.5-14.5); WBC 23.15 10*3/uL (4.50-10.00)
[2025-01-04 04:54] LABS: African American GFR (CKD) >90 (>60 ml/min/1.73 sqM); Anion Gap 5 mmol/L; Blood Urea Nitrogen 5 mg/dL (9-20); Calcium 6.5 mg/dL (8.4-10.2); Carbon Dioxide 37 mmol/L (22-30); Chloride 92 mmol/L (98-107); Magnesium 1.6 mg/dL (1.6-2.3); Non-African American GFR(CKD) >90 (>60 ml/min/1.73 sqM); Potassium 3.8 mmol/L (3.5-5.1); Sodium 134 mmol/L (137-145)
[2025-01-04 05:06] LABS: Glucose 42 mg/dL (74-99)
[2025-01-04] MEDS: DEXTROSE 50% SYRINGE 50 ML IVP PRN (05:10)
[2025-01-04 05:16] LABS: ABG HCO3 38 mmol/L (21-25); ABG PCO2 50 mmHg (35-45); ABG PH 7.49 (7.35-7.45); ABG PO2 93 mmHg (83-108); ABG TCO2 40 mmol/L (19-24)
[2025-01-04 05:34] LABS: Glucose,Whole Blood 196 mg/dL (70-110)
[2025-01-04] MEDS: POTASSIUM BICARBONATE/CIT AC 20 MEQ TABLET.EFF NG-TUBE SCH ×4 (05:37→22:19)
[2025-01-04] MEDS: MAGNESIUM SULFATE-D5W PMX 1 GM in DEXTROSE/WATER 1 100ML.BAG IVPB SCH (05:37)
--- NOTE | 2025-01-04 06:46 | XR ---
EXAMINATION TYPE: XR chest 1V portable DATE OF EXAM: 01/04/2025 COMPARISON: 01/03/2025 CLINICAL INDICATION: Male, 44 years old with history of Tube placement; TECHNIQUE: Single frontal view of the chest is obtained. FINDINGS: The ET tube is 8.4 cm above the yoli. NG tube projects into the stomach. Left sided thoracic vent i s unchanged in position. There is a tiny left apical pneumothorax. The diffuse bilateral interstitial and alveolar opacity is essentially unchanged allowing for differe nces in technique. IMPRESSION: 1. ET tube 8.4 cm above the yoli. 2. Persistent tiny left apical pneumothorax. 3 no change in the diffuse cardiopulmonary process. [facility], , 01/04/2025 6:44 AM
--- NOTE | 2025-01-04 10:30 | P.PN ---
Subjective Progress Note Date: 01/04/25 This is a pleasant 44-year-old male who was recently admitted after brief cardiac arrest with multiple electrolyte abnormalities being closely monitored. Patient being followed by cardiology and is status post cardiac catheterization recommending maximizing medical management and normal coronary arteries noted. Patient reports to having increasing pain and also generalized weakness although reports will be going home on discharge. Patient did have an elevated white count that had been trending down although is slightly up today with infectious disease following and will repeat CT abdomen for further evaluation. Continue current antibiotics at this time. Case management is following as plan is for LifeVest on discharge. Recommend incentive spirometer as patient is requiring oxygen and may require oxygen on discharge. Will reattempt home oxygen evaluation. Encourage increase activity as tolerated with sitting up out of the bed more frequently. Labs reviewed and white count is 25.52, hemoglobin is 8.8, platelets 446, sodium 137 with a potassium of 3.5, BUN is 5 and creatinine 0.33. Calcium is slightly low at 6.2, total bili is 1.4. 12/31/2024 Patient is seen in follow-up with multiple consultations following. White count was elevated although slightly improving with infectious disease following we will continue current regimen at this time. Patient continues to report short ness of breath and generalized pain and continues to require oxygen. Will need home O2 assessment. Patient underwent CT abdomen and will consult general surgery for evaluation. Encouraged increased activity as tolerated with sitting up more frequently in the chair. 01/01/2025 Patient seen and evaluated this morning currently scheduled to undergo HIDA scan per general surgery and patient is currently requesting increase in pain medications as she reports diffuse pain. Pain medications through the IV are currently on hold as patient will be undergoing HIDA scan. Patient's white count is elevated with infectious disease following maintained on Zosyn and will continue. Patient is afebrile with no reports of chest pain or palpitations. Patient is reporting some congestion and occasional shortness of breath. Will order chest x-ray as well. Continue DuoNeb treatments and supplemental oxygen as needed. Patient currently maintained on 5 L. Would recommend PT/OT therapy evaluation as patient has had prolonged cough elevation and appears frail and extremely weak. 01/02/2025 Patient is seen in follow-up was a CODE BLUE on 3 S. and was transferred to ICU intubated for respiratory arrest with cardiac arrest and ROSC received. Patient remains a full code per sister and will continue on mechanical ventilation with an FiO2 of 100% and PEEP of 10 currently. Blood pressures are soft and patient is maintained on pressor support and hemoglobin was noted to be 6.9 this morning and will give 1 unit of PRBC. White count remains elevated at 24.18 and maintained on antibiotics with infectious disease following. Sodium is 141 with a potassium of 3.0, creatinine 0.48, blood sugars elevated, lactic acid 5.1 with a calcium that is low at 5.6, magnesium 1.2. Prognosis remains extremely guarded and CODE STATUS needs to be addressed again. 01/03/2025 Patient is seen in follow-up in the ICU maintained on mechanical ventilation and FiO2 was adjusted per pulmonary alcoholic counselor but FiO2 is currently 60%. Patient maintained on pressor support including Levophed and vasopressin and also receiving Lasix. Blood sugars have been elevated and will adjust insulins accordingly including increasing long-acting. Patient is continued on tube feeds and will continue at this time. Per nursing staff patient did require Chris hugger for some time for hypothermia. Hemoglobin is stable at 8.3 status post 1 unit of PRBC, white count remains elevated at 19.68, sodium is 134 and potassium was again 2.9 with replacement of 3.5 and continued on protocol creatinine is stable at 0.63. Preliminary sputum culture from 12/31/2024 showing yeast species. 01/04/2025 Patient is seen in follow-up continues to be in the ICU on mechanical ventilation with multiple consultations following. FiO2 is 60% and patient is continued on low-dose pressor and support, Levophed has been discontinued and p atient has been weaned off fentanyl and patient is not on Versed at this time. Patient continues on sedation with propofol and per nursing staff will undergo sedation trials to assess mentation. Patient is continued on antibiotics and will continue with infectious disease following. Blood sugars have been on the lower side and tube feedings have been started and tolerating thus far working on goal and will discontinue long-acting insulin and monitor closely with just Accu-Cheks and sliding scale for now. Prognosis remains extremely guarded and patient remains full code per family at this time. White count remains elevated at 23.15, hemoglobin is stable at 9.0 with no active bleeding noted, platelets are 319, sodium is 134 with a potassium of 3.8, BUN is 5 and creatinine is 0.79. Magnesium is 1.6 and receiving replacement. Review of systems: Unable to assess as patient is now intubated and sedated All medications have been reviewed PHYSICAL EXAMINATION: GENERAL: The patient is alert and oriented x0, placed back on mechanical vent with an FiO2 of 60 % and PEEP is 10. Well developed, elderly appearing, thin built, cachectic, chronically ill-appearing HEENT: Pupils are round and equally reacting to light. EOMI. no scleral icterus. No conjunctival pallor. Normocephalic, atraumatic. No pharyngeal erythema. No thyromegaly. CARDIOVASCULAR: S1 and S2 muffled PULMONARY: diminished breath sounds bilaterally with no wheezing, scattered coarse rhonchi noted with upper bronchial congestion. Crackles noted at the bases ABDOMEN: soft. Nontender on exam. Thin non-distended, normoactive bowel sounds. No palpable organomegaly. MUSCULOSKELETAL: No joint swelling or deformity. EXTREMITIES: No cyanosis, clubbing, or pedal edema. NEUROLOGICAL: Gross neurological examination did not reveal any focal deficits. Unable to completely assess as patient is sedated and on mechanical ventilation SKIN: No rashes. Extremely pale Assessment: Cardiac arrest, possibly secondary to ventricular tachycardia secondary to multiple electrolyte abnormalities Respiratory arrest with cardiac arrest requiring mechanical ventilation 01/01/2025 Severe hypokalemia, hypomagnesemia, hypocalcemia, improving after replacement, continue to monitor closely History of EtOH Nonischemic cardiomyopathy possible Takotsubo, EF was 20 to 25%, repeat is 30- 35, being fitted for LifeVest Possible acute colitis as noted on imaging Diabetes mellitus, type II, uncontrolled with hyperglycemia History of pancreatitis Tachycardia Anemia, chronic, hemoglobin was 6.9 today and transfused 1 unit of PRBC 01/02/2025, improved and currently 9.0 Concerns of possible right lower lobe pneumonia, possibly aspiration History of splenic vein thrombosis, was on Eliquis Hepatic encephalopathy Moderate protein calorie malnutrition with a BMI of 17.7 GI prophylaxis DVT prophylaxis Full code Plan: Recommend to continue with current medications and management with multiple consultations following. Patient had respiratory arrest with cardiac arrest overnight and was placed on mechanical ventilation and is now in the ICU continued on sedatives and pressor support. Weaning pressor support and Levophed along with Versed and fentanyl have been discontinued infectious disease following as white count remains elevated and patient is maintained on antibiotics and will continue. General surgery following as there was concern of cholecystitis with discussion of possible surgical intervention although no plans for intervention at this time Cardiology following and patient is status post catheterization recommending maximizing medical management and case management following and has received LifeVest Continue monitoring Accu-Cheks AC and at bedtime and adjust accordingly. Blood sugars have been on the lower side and will hold long-acting and continue with just sliding scale for now Follow-up on repeat labs and replace electrolytes per protocol. Replace potassium and magnesium Per nursing staff sister reports patient is full code and to remain full code. CODE STATUS needs to be readdressed and overall prognosis is extremely poor and guarded at this time The impression and plan of care has been dictated by Ana Duggan, nurse practitioner as directed. Dr. Yara MD I have performed a history and examination and MDM of this patient, discussed the same with the dictator, and agree with the dictator's assessment and plan as written ,documented as a scribe. Based on total visit time, I have performed more than 50% of the visit. Any additional findings or plans will be noted. Objective - Vital Signs Vital signs: Vital Signs Temp 97.9 F 01/04/25 04:00 Pulse 82 01/04/25 08:11 Resp 24 01/04/25 07:00 BP 110/90 01/04/25 07:00 Pulse Ox 98 01/04/25 07:00 FiO2 60 01/04/25 08:01 Intake & Output 01/03/25 01/04/25 01/04/25 18:59 06:59 18:59 Intake Total 2196.198 1030.228 126.629 Output Total 895 1225 100 Balance 1301.198 -194.772 26.629 Weight 66.5 kg Intake: IV 878 396 33 .9NS KVO 270 360 30 .9NS Pressure Bag 33 36 3 Calcium Gluconate in NaCl 100 2 gm In Saline 1 100ml. bag @ 100 mls/hr IVPB ONCE ONE Rx#:[id number] Dextrose 5% in Water 1, 300 000 ml @ 150 mls/hr IV . Q7H40M VLAD with Sodium Bicarb (1 Meq/ml) 150 ml Rx#:[id number] Piperacillin-Tazobactam 3 75 .375 gm In Sodium Chloride 0.9% 100 ml @ 25 mls/hr IVPB Q8HR VLAD Rx# :[id number] metroNIDAZOLE-NS PMX 500 100 mg In Saline 1 100ml.bag @ 100 mls/hr IVPB Q8HR VLAD Rx#:[id number] Intake, IV Titration 1188.198 414.228 73.629 Amount Norepinephrine 8 mg In 105.819 73.345 Sodium Chloride 0.9% 250 ml @ 0.03 MCG/KG/MIN 3. 291 mls/hr IV .Q24H VLAD Rx#:[id number] Vancomycin 1,000 mg In 750 125 Sodium Chloride 0.9% 250 ml @ 125 mls/hr IVPB Q12H VLAD Rx#:[id number] Vasopressin 60 unit In 105.876 95.013 Sodium Chloride 0.9% 150 ml @ 0.03 UNITS/MIN 4.59 mls/hr IV .Q24H VLAD Rx#: [id number] fentaNYL (PF). 1,000 mcg 88.385 In Sodium Chloride 0.9% 80 ml @ 0.5 MCG/KG/HR 2. 66 mls/hr IV .Q24H VLAD Rx #:[id number] propofoL 1,000 mg In 138.118 120.870 73.629 Empty Bag 1 bag @ 15 MCG/ KG/MIN 4.788 mls/hr IV . [id number] VLAD Rx#:[id number] Tube Feeding 70 130 20 Other 60 90 Output: Chest Tube Drainage 15 0 Thora-Vent Left Anterior 15 0 Chest Urine 880 1225 100 Other: Voiding Method Indwelling Catheter Indwelling Catheter # Bowel Movements 1 ABP, PAP, CO, CI - Last Documented Arterial Blood Pressure 104/74 - Labs CBC & Chem 7: 01/04/25 04:19 01/04/25 04:19 Labs: Abnormal Lab Results - Last 24 Hours (Table) 01/03/25 01/03/25 01/04/25 Range/Units 11:13 11:36 04:19 WBC (4.50-10.00) 10*3/uL RBC (4.40-5.60) 10*6/uL Hgb (13.0-17.0) g/dL Hct (39.6-50.0) % Immature Gran # (0.00-0.04) 10*3/uL Neutrophils # (1.80-7.70) 10*3/uL Eosinophils # (0.04-0.35) 10*3/uL ABG pH (7.35-7.45) ABG pCO2 (35-45) mmHg ABG HCO3 (21-25) mmol/L ABG Total CO2 (19-24) mmol/L ABG O2 Saturation (94-97) % Hemoglobin (13.0-17.5) gm/dL Sodium 134 L (137-145) mmol/L Chloride 92 L (98-107) mmol/L Carbon Dioxide 37 H (22-30) mmol/L BUN 5 L (9-20) mg/dL Glucose 42 L* (74-99) mg/dL POC Glucose (mg/dL) 238 H 236 H (70-110) mg/dL Calcium 6.5 L (8.4-10.2) mg/dL 01/04/25 01/04/25 01/04/25 Range/Units 04:19 05:12 05:33 WBC 23.15 H (4.50-10.00) 10*3/uL RBC 2.93 L (4.40-5.60) 10*6/uL Hgb 9.0 L (13.0-17.0) g/dL Hct 26.7 L (39.6-50.0) % Immature Gran # 0.17 H (0.00-0.04) 10*3/uL Neutrophils # 19.91 H (1.80-7.70) 10*3/uL Eosinophils # 0.39 H (0.04-0.35) 10*3/uL ABG pH 7.49 H (7.35-7.45) ABG pCO2 50 H (35-45) mmHg ABG HCO3 38 H (21-25) mmol/L ABG Total CO2 40 H (19-24) mmol/L ABG O2 Saturation 98.3 H (94-97) % Hemoglobin 8.6 L (13.0-17.5) gm/dL Sodium (137-145) mmol/L Chloride (98-107) mmol/L Carbon Dioxide (22-30) mmol/L BUN (9-20) mg/dL Glucose (74-99) mg/dL POC Glucose (mg/dL) 196 H (70-110) mg/dL Calcium (8.4-10.2) mg/dL Microbiology - Last 24 Hours (Table) 01/02/25 23:45 Gram Stain - Preliminary Sputum 01/02/25 16:07 Blood Culture - Preliminary Blood 01/02/25 00:00 Nasal Screen MRSA/MSSA - Final Nasal Swab
--- NOTE | 2025-01-04 10:38 | P.PN ---
Subjective Progress Note Date: 01/04/25 Principal diagnosis: Cardiopulmonary arrest. This is a 44-year-old white male brought into the emergency room earlier this morning by EMS with altered mental status and seizure-like activity. Apparently the patient is known to have past medical history of alcohol use, chronic p ancreatitis, pancreatic pseudocyst, history of hypertension, previous history of TIA, patient had a sudden feeling of dizziness, and asked his roommate to call EMS. Apparently upon arrival of EMS he was found to have seizure-like activity and went unresponsive on the monitor the patient was noted to have ventricular tachycardia, CPR was started and the patient received 1 shock. Patient became conscious again, and his rhythm came back with return of circulation. Apparently for the last few days the patient has been experiencing episodes of nausea and vomiting and episodes of low blood sugar. In addition, patient has been complaining of episodes of diarrhea for the last 2 weeks. Patient normally follows up at [facility] for his pancreatitis and pseudocyst. 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 And has been taking Eliquis until yesterday. Patient drinks occasionally at this point, used to be a heavy drinker in the past. I evaluated the patient in the ER, and considering his cardiac arrest history, I recommended admitting the patient to the ICU, and he is to be seen by other consultants including cardiology. During my evaluation the patient was not in any distress, he was hemodynamically stable, all his labs were reviewed. Patient was seen today on 12/25/2024, remains in the ICU mostly because of his profound electrolyte abnormalities including hypocalcemia, hypomagnesium , hypokalemia, these are all being addressed accordingly mostly related to his GI symptoms and his pancreatitis. As well as diarrhea and nausea and vomiting. Patient is not in any distress, he is on 2 L nasal cannula, has been receiving potassium almost every 2 hours 20 mEq orally remains empirically on Zosyn, continues to have some vague abdominal pain and discomfort. WBC count today is 12.2 hemoglobin 9.5 electrolytes showed low sodium of 131 low potassium 2.9 but few hours later it was up to 3.8 renal functioning is normal calcium is up to 5.8 today. Add magnesium is up to 2.1, these are all being addressed daily. Cardiac sheppard the patient is in sinus rhythm, no further episodes of tachyarrhythmia. Seen today on 12/26/2024, patient remains in the ICU, feeling better, he has no active pulmonary symptoms no GI symptoms and no cardiac symptoms. Labs have shown significant improvement his potassium today is 4.5 calcium is up to 6 however his albumin is 1.9 which makes his corrected calcium 7.68., Improved, but not up to 8.4 or higher. Hence would recommend more calcium gluconate to be given for this patient. Magnesium not done today however was 2.1 yesterday. Seen today on 12/27/2024, patient is doing well, asymptomatic. Has some vague abdominal pain no cough no wheezing no shortness of breath no chest pain. No palpitations CBC showed leukocytosis WBC count of 15.9 hemoglobin 8.8. His electrolytes are normal potassium is 3.8 calcium is up to 6.8/uncorrected to albumin. 01/02/25 - He was seen and examined in the ICU, room 258. He was previously seen by pulmonary/critical care up until 12/27/2024, at which time we signed off care. Since that time, on 12/30/2024 he underwent a cardiac catheterization with Dr. Rosario which revealed normal coronary arteries, cardiomyopathy of nonischemic etiology. He was being followed by infectious disease due to possible colitis, and had been placed on antibiotics, general surgery for exploratory laparotomy in regards to cholecystitis and colitis. Late in the evening on 01/01/2025 a CODE BLUE was called in which the patient had diminished breath sounds and was tachypneic. He became bradycardic and then went asystole, at which time CPR was initiated. CODE BLUE as per the event note in the patient's chart. ROSC was achieved with 2 rounds of epinephrine. At that time patient was intubated, transferred to the ICU and initiated on a bicarb drip. He was noted to have pneumothorax of the left lung. He was intubated on 01/01/2025 and has not been mechanically ventilated with a tidal volume 400, respiratory rate 22, FiO2 100% and PEEP of 10. Most recent blood gas showed pO2 66, pCO2 45 and pH 7.37. Most recent labs showed WBCs 27.2, hemoglobin 6.9, hematocrit 21.8, platelet 339; sodium 141, potassium 2.6, bicarb 20, BUN <2, creatinine 0.48, lactic acid 11.7, calcium 5.6, ionized calcium 3.4, magnesium 1.2, total bilirubin 1.2, AST 99, ALT 29, alkaline phosphatase 183, TSH 0.551. He is currently receiving norepinephrine 0.39 mcg/kg/min, and sedated with fentanyl at 1 mcg/kg/h, propofol at 50 mcg/kg/h, and received an additional 10 mg of Nimbex prior to left radial arterial line placement. He continues receiving vancomycin, Zosyn, Flagyl and Diflucan. Progress note dated January 03, 2025. This is a 44-year-old male seen in room 258. He remains on mechanical ventilator. He is on volume assist-control, rate 22, tidal volume 400, FiO2 70 %, PEEP of 10. Blood gases show pO2 123, pCO2 50, pH of 7.46. He has a left Thora vent in place. He is on fentanyl at 1.5 mcg/kg/h, D5W with 3 ampoules of sodium bicarbonate at 150 cc an hour, propofol at 50 mcg/kg/min, saline at 30 cc an hour, norepinephrine at 6 mcg/min, and vasopressin at 0.03 units/min. Sodium bicarbonate drip can be discontinued. The patient is currently also on fluconaz ole, Flagyl, vancomycin, and Zosyn. Current labs include a white count of 19.7, hemoglobin 8.3, hematocrit 25, and platelet count 304,000. Sodium 134, potassium 2.9, chloride 94, CO2 35, BUN 2, creatinine 0.63. Calcium is 5.3, and ionized calcium is low at 3.4. Albumin is 1.4. Cultures thus far are negative, save for the sputum showing evidence of yeast. Chest x-ray shows the left lung to be expanded, with a very tiny pneumothorax. There is diffuse changes throughout, largely unchanged. Progress note dated January 04, 2025. 44-year-old male seen today in room 258. He continues on volume assist-control, rate 22, tidal volume 400, 60% FiO2, PEEP of 10. Blood gases show pO2 of 93, pCO2 50, pH of 7.49. Is currently on propofol at 40 mcg/kg/min, vasopressin at 0.02 units/min, saline at 40 cc an hour, and tube feedings, at 21 cc an hour, which is goal. He continues on Diflucan, Flagyl, and Zosyn. White count is 23.2, hemoglobin 9, hematocrit 26.7, and platelet count is 319,000. Sodium 134, potassium 3.8, chloride 92, CO2 37, BUN is 5, with creatinine 0.79. Glucose 196. Calcium 6.5. Magnesium 1.6. Tiny apical left pneumothorax. Thora vent device is still noted. Objective - Vital Signs Vital signs: Vital Signs Temp 97.9 F 01/04/25 04:00 Pulse 82 01/04/25 08:11 Resp 24 01/04/25 07:00 BP 110/90 01/04/25 07:00 Pulse Ox 98 01/04/25 07:00 FiO2 60 01/04/25 08:01 Intake & Output 01/03/25 01/04/25 01/04/25 18:59 06:59 18:59 Intake Total 2196.198 1030.228 126.629 Output Total 895 1225 100 Balance 1301.198 -194.772 26.629 Weight 66.5 kg Intake: IV 878 396 33 .9NS KVO 270 360 30 .9NS Pressure Bag 33 36 3 Calcium Gluconate in NaCl 100 2 gm In Saline 1 100ml. bag @ 100 mls/hr IVPB ONCE ONE Rx#:[id number] Dextrose 5% in Water 1, 300 000 ml @ 150 mls/hr IV . Q7H40M VLAD with Sodium Bicarb (1 Meq/ml) 150 ml Rx#:[id number] Piperacillin-Tazobactam 3 75 .375 gm In Sodium Chloride 0.9% 100 ml @ 25 mls/hr IVPB Q8HR [facility] Rx# :[id number] metroNIDAZOLE-NS PMX 500 100 mg In Saline 1 100ml.bag @ 100 mls/hr IVPB Q8HR [facility] Rx#:[id number] Intake, IV Titration 1188.198 414.228 73.629 Amount Norepinephrine 8 mg In 105.819 73.345 Sodium Chloride 0.9% 250 ml @ 0.03 MCG/KG/MIN 3. 291 mls/hr IV .Q24H [facility] Rx#:[id number] Vancomycin 1,000 mg In 750 125 Sodium Chloride 0.9% 250 ml @ 125 mls/hr IVPB Q12H [facility] Rx#:[id number] Vasopressin 60 unit In 105.876 95.013 Sodium Chloride 0.9% 150 ml @ 0.03 UNITS/MIN 4.59 mls/hr IV .Q24H [facility] Rx#: [id number] fentaNYL (PF). 1,000 mcg 88.385 In Sodium Chloride 0.9% 80 ml @ 0.5 MCG/KG/HR 2. 66 mls/hr IV .Q24H [facility] Rx #:[id number] propofoL 1,000 mg In 138.118 120.870 73.629 Empty Bag 1 bag @ 15 MCG/ KG/MIN 4.788 mls/hr IV . [id number] [facility] Rx#:[id number] Tube Feeding 70 130 20 Other 60 90 Output: Chest Tube Drainage 15 0 Thora-Vent Left Anterior 15 0 Chest Urine 880 1225 100 Other: Voiding Method Indwelling Catheter Indwelling Catheter # Bowel Movements 1 ABP, PAP, CO, CI - Last Documented Arterial Blood Pressure 104/74 - Exam No acute distress, sedated, with an orally placed endotracheal tube. HEENT examination is grossly unremarkable. Mucous membranes are moist. No oral lesions. Neck supple. Full range of motion. No adenopathy thyromegaly or neck vein distention. Cardiovascular examination reveals regular rhythm rate. S1-S2 normal. No S3 or S4. No discernible murmur noted. Heart sounds are distant. Lungs reveal scattered bilateral mild to moderate rhonchorous breath sounds. No wheezes. No crackles. Breath sounds equal bilaterally. Abdomen soft without bowel sounds. No masses or tenderness. Extremities are intact. No cyanosis clubbing or edema. Skin is without rash or lesion. Neurologic examination cannot be evaluated at this time. - Labs CBC & Chem 7: 01/04/25 04:19 01/04/25 04:19 Labs: Abnormal Lab Results - Last 24 Hours (Table) 01/03/25 01/03/25 01/04/25 Range/Units 11:13 11:36 04:19 WBC (4.50-10.00) 10*3/uL RBC (4.40-5.60) 10*6/uL Hgb (13.0-17.0) g/dL Hct (39.6-50.0) % Immature Gran # (0.00-0.04) 10*3/uL Neutrophils # (1.80-7.70) 10*3/uL Eosinophils # (0.04-0.35) 10*3/uL ABG pH (7.35-7.45) ABG pCO2 (35-45) mmHg ABG HCO3 (21-25) mmol/L ABG Total CO2 (19-24) mmol/L ABG O2 Saturation (94-97) % Hemoglobin (13.0-17.5) gm/dL Sodium 134 L (137-145) mmol/L Chloride 92 L (98-107) mmol/L Carbon Dioxide 37 H (22-30) mmol/L BUN 5 L (9-20) mg/dL Glucose 42 L* (74-99) mg/dL POC Glucose (mg/dL) 238 H 236 H (70-110) mg/dL Calcium 6.5 L (8.4-10.2) mg/dL 01/04/25 01/04/25 01/04/25 Range/Units 04:19 05:12 05:33 WBC 23.15 H (4.50-10.00) 10*3/uL RBC 2.93 L (4.40-5.60) 10*6/uL Hgb 9.0 L (13.0-17.0) g/dL Hct 26.7 L (39.6-50.0) % Immature Gran # 0.17 H (0.00-0.04) 10*3/uL Neutrophils # 19.91 H (1.80-7.70) 10*3/uL Eosinophils # 0.39 H (0.04-0.35) 10*3/uL ABG pH 7.49 H (7.35-7.45) ABG pCO2 50 H (35-45) mmHg ABG HCO3 38 H (21-25) mmol/L ABG Total CO2 40 H (19-24) mmol/L ABG O2 Saturation 98.3 H (94-97) % Hemoglobin 8.6 L (13.0-17.5) gm/dL Sodium (137-145) mmol/L Chloride (98-107) mmol/L Carbon Dioxide (22-30) mmol/L BUN (9-20) mg/dL Glucose (74-99) mg/dL POC Glucose (mg/dL) 196 H (70-110) mg/dL Calcium (8.4-10.2) mg/dL Microbiology - Last 24 Hours (Table) 01/02/25 23:45 Gram Stain - Preliminary Sputum 01/02/25 16:07 Blood Culture - Preliminary Blood 01/02/25 00:00 Nasal Screen MRSA/MSSA - Final Nasal Swab Assessment and Plan Assessment: S/P cardiac arrest, with cardiopulmonary resuscitation, and return of spontaneous circulation. Intubation, and mechanical ventilation, secondary to cardiac arrest. Recent prior episode of cardiac arrest, not requiring intubation/mechanical ventilation Left pneumothorax, S/P Thora vent placement. History of chronic pancreatitis. Hyperammonemia. History of chronic alcohol abuse. History of splenic vein thrombosis. History of syncope. History of chronic diarrhea. Lactic acidosis. Hypocalcemia. Hypomagnesemia. Plan: Plan dated January 03, 2025. The patient is seen today in room 258. He remains on mechanical ventilator. He is on volume assist-control, tidal volume 400, FiO2 70%, to be dropped to 60%, PEEP of 10. Blood gases are reasonable, with a PO2 123, PCO2 of 50, pH of 7.46. The patient continues with a left Thora vent in place. This is secondary to a left-sided pneumothorax, after cardiopulmonary resuscitation. The patient continues on fentanyl, propofol, norepinephrine, and vasopressin. The sodium bicarbonate drip can be discontinued. The patient also continues on fluconazole, Flagyl, vancomycin, and Zosyn. All labs, x-rays, medications are reviewed. We will continue to follow the patient, make recommendations. Prognosis is certainly guarded. Dictation was produced using [employer] dictation software. Please excuse any grammatical, word or spelling errors. Plan dated January 04, 2025. 44-year-old male seen today in room 258. The patient has been weaned off most of his pressors, although he still on vasopressin at 0.02 units/min. Blood gases are reasonable with a PO2 of 93, pCO2 50, pH of 7.49. The patient continues on propofol, and tube feedings. He also continues on Diflucan, Flagyl, and Zosyn. All labs, x-rays, and medications are reviewed. I believe the patient will be ready for weaning, tomorrow. Clinically, he is doing much better. His chest x-ray is unchanged. We will continue to follow. He does have a small left apical pneumothorax. Thora vent device remains in place. Prognosis is guarded. Dictation was produced using [employer] software. Please excuse any grammatical, word or spelling errors. Time with Patient: Greater than 30
[2025-01-04 11:34] LABS: Glucose,Whole Blood 116 mg/dL (70-110)
--- NOTE | 2025-01-04 16:04 | P.PN ---
Subjective Progress Note Date: 01/04/25 Principal diagnosis: Reason for follow-up is pneumonia/colitis Patient is a 44-year-old male with a past medical history significant for CVA TIA reflux history of recurrent/chronic pancreatitis from alcoholism and hypertension patient was brought into the hospital for lethargy seizure activity did have a cardiac arrest/V. tach requiring shock and subsequent admitted to the hospital.Patient did have a cardiac arrest last night patient is status post resuscitation intubation and transfer the ICU also have a right-sided pneumothorax. On today's visit that is 01/04/2025, Patient is afebrile this morning the patient remains to be intubated on the vent FiO2 is down to 60% patient is hemodynamic slightly better as of the Levophed and her systolic mention her going down on the vasopressin level no other changes has been reported. Patient white count is 23.15 creatinine 0.79 blood and sputum cultures are currently pending MRSA nasal screen was negative Objective - Vital Signs Vital signs: Vital Signs Temp 98.0 F 01/04/25 12:00 Pulse 81 01/04/25 15:39 Resp 22 01/04/25 15:00 BP 115/94 01/04/25 14:15 Pulse Ox 100 01/04/25 15:00 FiO2 60 01/04/25 15:28 Intake & Output 01/03/25 01/04/25 01/04/25 18:59 06:59 18:59 Intake Total 2196.198 1030.228 781.905 Output Total 895 1225 1765 Balance 1301.198 -194.772 -983.095 Weight 66.5 kg Intake: IV 878 396 577 .9NS KVO 270 360 350 .9NS Pressure Bag 33 36 27 Calcium Gluconate in NaCl 100 2 gm In Saline 1 100ml. bag @ 100 mls/hr IVPB ONCE ONE Rx#:[id number] Dextrose 5% in Water 1, 300 000 ml @ 150 mls/hr IV . Q7H40M [facility]AD with Sodium Bicarb (1 Meq/ml) 150 ml Rx#:[id number] Piperacillin-Tazobactam 3 75 100 .375 gm In Sodium Chloride 0.9% 100 ml @ 25 mls/hr IVPB Q8HR [facility] Rx# :[id number] metroNIDAZOLE-NS PMX 500 100 100 mg In Saline 1 100ml.bag @ 100 mls/hr IVPB Q8HR [facility] Rx#:[id number] Intake, IV Titration 1188.198 414.228 184.905 Amount Norepinephrine 8 mg In 105.819 73.345 Sodium Chloride 0.9% 250 ml @ 0.03 MCG/KG/MIN 3. 291 mls/hr IV .Q24H [facility] Rx#:[id number] Vancomycin 1,000 mg In 750 125 Sodium Chloride 0.9% 250 ml @ 125 mls/hr IVPB Q12H [facility] Rx#:[id number] Vasopressin 60 unit In 105.876 95.013 25.092 Sodium Chloride 0.9% 150 ml @ 0.03 UNITS/MIN 4.59 mls/hr IV .Q24H [facility] Rx#: [id number] fentaNYL (PF). 1,000 mcg 88.385 In Sodium Chloride 0.9% 80 ml @ 0.5 MCG/KG/HR 2. 66 mls/hr IV .Q24H [facility] Rx #:[id number] propofoL 1,000 mg In 138.118 120.870 159.813 Empty Bag 1 bag @ 15 MCG/ KG/MIN 4.788 mls/hr IV . [id number] [facility] Rx#:[id number] Tube Feeding 70 130 20 Other 60 90 Output: Chest Tube Drainage 15 0 100 Thora-Vent Left Anterior 15 0 100 Chest Urine 880 1225 1665 Other: Voiding Method Indwelling Catheter Indwelling Catheter Indwelling Catheter # Bowel Movements 1 1 ABP, PAP, CO, CI - Last Documented Arterial Blood Pressure 119/76 - Exam GENERAL DESCRIPTION: Middle-age male intubated on the vent RESPIRATORY SYSTEM: Unlabored breathing , decreased breath sounds at bases HEART: S1 S2 regular rate and rhythm , ABDOMEN: Soft , no tenderness EXTREMITIES: No edema feet - Labs CBC & Chem 7: 01/04/25 04:19 01/04/25 15:10 Labs: Abnormal Lab Results - Last 24 Hours (Table) 01/04/25 01/04/25 01/04/25 Range/Units 04:19 04:19 05:12 WBC 23.15 H (4.50-10.00) 10*3/uL RBC 2.93 L (4.40-5.60) 10*6/uL Hgb 9.0 L (13.0-17.0) g/dL Hct 26.7 L (39.6-50.0) % Immature Gran # 0.17 H (0.00-0.04) 10*3/uL Neutrophils # 19.91 H (1.80-7.70) 10*3/uL Eosinophils # 0.39 H (0.04-0.35) 10*3/uL ABG pH 7.49 H (7.35-7.45) ABG pCO2 50 H (35-45) mmHg ABG HCO3 38 H (21-25) mmol/L ABG Total CO2 40 H (19-24) mmol/L ABG O2 Saturation 98.3 H (94-97) % Hemoglobin 8.6 L (13.0-17.5) gm/dL Sodium 134 L (137-145) mmol/L Chloride 92 L (98-107) mmol/L Carbon Dioxide 37 H (22-30) mmol/L BUN 5 L (9-20) mg/dL Glucose 42 L* (74-99) mg/dL POC Glucose (mg/dL) (70-110) mg/dL Calcium 6.5 L (8.4-10.2) mg/dL 01/04/25 01/04/25 Range/Units 05:33 11:33 WBC (4.50-10.00) 10*3/uL RBC (4.40-5.60) 10*6/uL Hgb (13.0-17.0) g/dL Hct (39.6-50.0) % Immature Gran # (0.00-0.04) 10*3/uL Neutrophils # (1.80-7.70) 10*3/uL Eosinophils # (0.04-0.35) 10*3/uL ABG pH (7.35-7.45) ABG pCO2 (35-45) mmHg ABG HCO3 (21-25) mmol/L ABG Total CO2 (19-24) mmol/L ABG O2 Saturation (94-97) % Hemoglobin (13.0-17.5) gm/dL Sodium (137-145) mmol/L Chloride (98-107) mmol/L Carbon Dioxide (22-30) mmol/L BUN (9-20) mg/dL Glucose (74-99) mg/dL POC Glucose (mg/dL) 196 H 116 H (70-110) mg/dL Calcium (8.4-10.2) mg/dL Microbiology - Last 24 Hours (Table) 01/02/25 23:45 Gram Stain - Preliminary Sputum Sputum Culture - Preliminary 12/31/24 09:04 Gram Stain - Final Sputum Sputum Culture - Final Angelica glabrata Angelica dubliniensis 01/02/25 16:07 Blood Culture - Preliminary Blood 01/02/25 00:00 Nasal Screen MRSA/MSSA - Final Nasal Swab Assessment and Plan (1) Sepsis Current Visit: Yes Status: Acute Code(s): A41.9 - SEPSIS, UNSPECIFIED ORGANISM SNOMED Code(s): 70115601 (2) Aspiration pneumonitis Current Visit: Yes Status: Acute Code(s): J69.0 - PNEUMONITIS DUE TO INHALATION OF FOOD AND VOMIT SNOMED Code(s): 843465537 (3) Colitis Current Visit: Yes Status: Acute Code(s): K52.9 - NONINFECTIVE GASTROENTERITIS AND COLITIS, UNSPECIFIED SNOMED Code(s): 58684613 (4) Cholecystitis Current Visit: Yes Status: Acute Code(s): K81.9 - CHOLECYSTITIS, UNSPECIFIED SNOMED Code(s): 18240665 Plan: 1patient presented to hospital with sepsis in this patient who did have tachycardia hypotension elevated white count meeting criteria for SIRS source likely aspiration pneumonitis as the patient did have intractable nausea vomiting before the patient has been brought to the hospital patient also have abnormality on the abdominal pelvis CT concerning for colitis question of infectious etiology need to be ruled out patient did not recall if he has been on antibiotic in the recent past 2-sputum cultures collected on 12/31/2024 reported as yeast 3-patient CT as well as ultrasound has been suspicious for cholecystitis HIDA scan has been suspicious for chronic cholecystitis General Surgery following the patient 4patient did have a cardiac arrest now intubated in the ICU hypotension requiring pressor support repeat cultures currently pending however therapy did have a negative MRSA nasal screen 5patient is afebrile white count slightly up today blood and stool cultures currently pending we will continue patient on Zosyn and monitor clinical course closely Dictation was produced using [employer] dictation software. please excuse any grammatical, word or spelling errors. Time with Patient: Less than 30
[2025-01-04 17:47] LABS: Glucose,Whole Blood 93 mg/dL (70-110)
--- NOTE | 2025-01-04 18:06 | P.PN ---
Subjective Progress Note Date: 01/04/25 HISTORY OF PRESENT ILLNESS: This is a 44-year-old male with a past medical history significant for syncope, pancreatitis, splenic vein thrombosis, and alcohol abuse. 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 We have been asked to see the patient in consultation for cardiac arrest. Apparently the patient was having altered mental status at home and EMS was called. Patient was found to be in ventric ular tachycardia and CPR was started. 1 shock was delivered. The patient then had ROSC. Apparently no medications were given. The patient is seen and examined at the bedside in the emergency room. Patient is awake and alert. He currently denies any chest pain or pressure. Denies any shortness of breath. Patient does not remember any of the episodes that happened this morning. He just remembers waking up in the ambulance. He states he has not had any alcohol to drink in 2 to 3 days. He does state he has a history of alcohol abuse and drinks twisted teas. DIAGNOSTICS: - EKG reveals sinus tachycardia with no signs of acute ischemia. - Chest xray negative for acute process. - Laboratory data: WBC 13.81. Hemoglobin 10.7. Platelet count 356. Sodium 135. Potassium 2.3. BUN 5. Creatinine 0.31. Calcium 4.1. Magnesium 0.5. AST 223. ALT 55. Troponin 0.022. proBNP 329. - Current home cardiac medication list is not updated at the time of this dictation - No previous echocardiogram, stress test, or cardiac catheterization available in EMR for review 12/27/2024 Patient examined this morning at the bedside. Patient currently denies any chest pain or pressure. He denies shortness of breath. Vital signs are stable. Echocardiogram completed revealing ejection fraction 20 to 25%, anterior apical, apical lateral and apical akinesis, possible Takotsubo, mild aortic and mitral regurgitation, mild tricuspid regurgitation 12/28/2024 Patient examined this morning at the bedside. Patient without complaints of chest pain or pressure. He denies shortness of breath. Repeat limited echo performed revealed ejection fraction 30 to 35%, apex akinetic 12/29/2024 Patient seen and examined. Patient denies chest pain or chest pressure. He denies shortness of breath. He is scheduled for cardiac catheterization today which will be done by Dr. Rosario. Blood pressure 98/67, heart rate 109, pulse ox 96% on room air. Repeat blood work reveals WBC 22.8, hemoglobin 8.6. Sodium 136, potassium 3.4, BUN 3 and creatinine 0.3. Calcium 6.4. AST 61, alkaline phosphatase 291. Repeat chest x-ray reveals multifocal airspace opacities concerning for pneumonia 12/30/2024 Patient seen and examined. Yesterday, he underwent cardiac catheterization with Dr. Rosario which revealed normal coronary arteries. Cardiomyopathy is nonischemic in etiology. Repeat chest x-ray reveals multifocal airspace opacities concerning for pneumonia. Blood pressure 100/65, heart rate 102, pulse ox 99% on room air. 12/31/2024 Patient seen and examined. [facility] is in his room. Home patient does complain of soreness in his chest from CPR. He states he got up to the bathroom today and was feeling dizzy. Blood pressure 110/73, heart rate 105, pulse ox 88% on 6 L high flow nasal cannula. Patient is followed by infectious disease for possible colitis Abdominal ultrasound revealed thickened gallbladder wall. Correlate for signs of cholecystitis. Consider HIDA. Severe hepatic steatosis. CT abdomen pelvis: Moderate fatty infiltration of the liver. Consider cholecystitis. Correlate for underlying colitis. Bilateral small pleural effusions. 01/01/2025 Patient seen and examined. He denies chest pain or chest pressure. He is being followed by infectious disease and general surgery for cholecystitis or colitis. He is on IV antibiotics. Blood pressure 106/73, heart rate 109, pulse ox 94% on 12 L nasal cannula. Repeat blood work reveals WBC 19, hemoglobin 8.2, sodium 134, potassium 3.5 and creatinine 0.34. Alkaline phosphatase 288. 01/03/2021 On 01/02/2025 patient had a CODE BLUE and got return of spontaneous circulation and got intubated. Currently is maintained on ventilatory support, he is on norepinephrine vasopressin and is receiving Lasix. Blood glucose was elevated, BP 94/71, heart rate 93 01/04/2025 Continues to be on ventilator support, today off pressors, BP 109/66 Heart rate 100 bpm, sinus tachycardia PHYSICAL EXAM: VITAL SIGNS: Reviewed. GENERAL: Well-developed in no acute distress. HEENT: Head is normocephalic. Pupils are equal, round. Sclerae anicteric. Mucous membranes of the mouth are moist. Neck supple. No JVD or thyromegaly LUNGS: Respirations even and unlabored. Lungs essentially clear to auscultation bilaterally. HEART: Regular rate and rhythm. S1 and S2 heard. ABDOMEN: Soft. Nondistended. Nontender. EXTREMITIES: No clubbing or cyanosis. Peripheral pulses intact. No lower extremity edema NEUROLOGIC: Awake and alert. Oriented x 3. ASSESSMENT: Bly-dh-wubumttn cardiac arrest likely from V. tach. Repeat cardiac arrest likely from V. tach on 01/02/2025 Cardiomyopathy, EF 20 to 25%, nonischemic, possible Takotsubo, repeat echo 30-3 5% Multiple electrolyte imbalance with hypokalemia, hypomagnesemia, hypocalcemia Alcoholic liver disease with evidence of cirrhosis and poor synthetic function, and elevated MELD score History of alcohol abuse History of pancreatitis History of splenic vein thrombosis, previously on Eliquis History of syncope Aspiration pneumonitis Colitis Possible cholecystitis Acute hypoxic respiratory failure PLAN: Overall prognosis very poor. Continue supportive care from ICU Amiodarone 200 mg daily, Lasix 40 IV twice daily Start metoprolol tartrate 12.5 mg twice daily today Reintroduce GDMT as blood pressure and heart rate tolerates Objective - Vital Signs Vital signs: Vital Signs Temp 97.8 F 01/04/25 16:00 Pulse 100 01/04/25 17:00 Resp 24 01/04/25 17:00 BP 112/92 01/04/25 16:15 Pulse Ox 99 01/04/25 17:00 FiO2 60 01/04/25 16:00 Intake & Output 01/03/25 01/04/25 01/04/25 18:59 06:59 18:59 Intake Total 2196.198 3622.582 3679.905 Output Total 895 1225 2145 Balance 1301.198 -194.772 -1097.095 Weight 66.5 kg Intake: IV 878 396 843 .9NS KVO 270 360 410 .9NS Pressure Bag 33 36 33 Calcium Gluconate in NaCl 100 2 gm In Saline 1 100ml. bag @ 100 mls/hr IVPB ONCE ONE Rx#:[id number] Dextrose 5% in Water 1, 300 000 ml @ 150 mls/hr IV . Q7H40M VLAD with Sodium Bicarb (1 Meq/ml) 150 ml Rx#:[id number] Piperacillin-Tazobactam 3 75 200 .375 gm In Sodium Chloride 0.9% 100 ml @ 25 mls/hr IVPB Q8HR VLAD Rx# :[id number] metroNIDAZOLE-NS PMX 500 100 200 mg In Saline 1 100ml.bag @ 100 mls/hr IVPB Q8HR VLAD Rx#:[id number] Intake, IV Titration 1188.198 414.228 184.905 Amount Norepinephrine 8 mg In 105.819 73.345 Sodium Chloride 0.9% 250 ml @ 0.03 MCG/KG/MIN 3. 291 mls/hr IV .Q24H VLAD Rx#:[id number] Vancomycin 1,000 mg In 750 125 Sodium Chloride 0.9% 250 ml @ 125 mls/hr IVPB Q12H VLAD Rx#:[id number] Vasopressin 60 unit In 105.876 95.013 25.092 Sodium Chloride 0.9% 150 ml @ 0.03 UNITS/MIN 4.59 mls/hr IV .Q24H VLAD Rx#: [id number] fentaNYL (PF). 1,000 mcg 88.385 In Sodium Chloride 0.9% 80 ml @ 0.5 MCG/KG/HR 2. 66 mls/hr IV .Q24H VLAD Rx #:[id number] propofoL 1,000 mg In 138.118 120.870 159.813 Empty Bag 1 bag @ 15 MCG/ KG/MIN 4.788 mls/hr IV . [id number] VLAD Rx#:[id number] Tube Feeding 70 130 20 Other 60 90 Output: Chest Tube Drainage 15 0 110 Thora-Vent Left Anterior 15 0 110 Chest Urine 880 1225 2035 Other: Voiding Method Indwelling Catheter Indwelling Catheter Indwelling Catheter # Bowel Movements 1 1 ABP, PAP, CO, CI - Last Documented Arterial Blood Pressure 109/66 - Labs CBC & Chem 7: 01/04/25 04:19 01/04/25 15:10 Labs: Abnormal Lab Results - Last 24 Hours (Table) 01/04/25 01/04/25 01/04/25 Range/Units 04:19 04:19 05:12 WBC 23.15 H (4.50-10.00) 10*3/uL RBC 2.93 L (4.40-5.60) 10*6/uL Hgb 9.0 L (13.0-17.0) g/dL Hct 26.7 L (39.6-50.0) % Immature Gran # 0.17 H (0.00-0.04) 10*3/uL Neutrophils # 19.91 H (1.80-7.70) 10*3/uL Eosinophils # 0.39 H (0.04-0.35) 10*3/uL ABG pH 7.49 H (7.35-7.45) ABG pCO2 50 H (35-45) mmHg ABG HCO3 38 H (21-25) mmol/L ABG Total CO2 40 H (19-24) mmol/L ABG O2 Saturation 98.3 H (94-97) % Hemoglobin 8.6 L (13.0-17.5) gm/dL Sodium 134 L (137-145) mmol/L Chloride 92 L (98-107) mmol/L Carbon Dioxide 37 H (22-30) mmol/L BUN 5 L (9-20) mg/dL Glucose 42 L* (74-99) mg/dL POC Glucose (mg/dL) (70-110) mg/dL Calcium 6.5 L (8.4-10.2) mg/dL 01/04/25 01/04/25 Range/Units 05:33 11:33 WBC (4.50-10.00) 10*3/uL RBC (4.40-5.60) 10*6/uL Hgb (13.0-17.0) g/dL Hct (39.6-50.0) % Immature Gran # (0.00-0.04) 10*3/uL Neutrophils # (1.80-7.70) 10*3/uL Eosinophils # (0.04-0.35) 10*3/uL ABG pH (7.35-7.45) ABG pCO2 (35-45) mmHg ABG HCO3 (21-25) mmol/L ABG Total CO2 (19-24) mmol/L ABG O2 Saturation (94-97) % Hemoglobin (13.0-17.5) gm/dL Sodium (137-145) mmol/L Chloride (98-107) mmol/L Carbon Dioxide (22-30) mmol/L BUN (9-20) mg/dL Glucose (74-99) mg/dL POC Glucose (mg/dL) 196 H 116 H (70-110) mg/dL Calcium (8.4-10.2) mg/dL Microbiology - Last 24 Hours (Table) 01/02/25 23:45 Gram Stain - Preliminary Sputum Sputum Culture - Preliminary 12/31/24 09:04 Gram Stain - Final Sputum Sputum Culture - Final Angelica glabrata Angelica dubliniensis 01/02/25 16:07 Blood Culture - Preliminary Blood 01/02/25 00:00 Nasal Screen MRSA/MSSA - Final Nasal Swab
[2025-01-04] MEDS: METOPROLOL TARTRATE 12.5 MG TAB PO SCH (21:33)
[2025-01-04 23:38] LABS: Glucose,Whole Blood 81 mg/dL (70-110)
[2025-01-05 03:55] LABS: Glucose,Whole Blood 103 mg/dL (70-110)
[2025-01-05 04:19] LABS: Basophils # (A) 0.02 10*3/uL (0.00-0.10); Basophils % (A) 0.1 %; Eosinophils # (A) 0.11 10*3/uL (0.04-0.35); Eosinophils % (A) 0.6 %; HCT 29.9 % (39.6-50.0); HGB 9.8 g/dL (13.0-17.0); Lymphocytes # (A) 1.25 10*3/uL (0.90-5.00); Lymphocytes % (A) 7.0 %; MCH 29.8 pg (27.0-32.0); MCHC 32.8 g/dL (32.0-37.0); MCV 90.9 fL (80.0-97.0); Monocytes # (A) 0.41 10*3/uL (0.20-1.00); Monocytes % (A) 2.3 %; Neutrophils # (A) 15.94 10*3/uL (1.80-7.70); Neutrophils % (A) 89.6 %; Platelet Count 272 10*3/uL (140-440); RBC 3.29 10*6/uL (4.40-5.60); RDW 21.1 % (11.5-14.5); WBC 17.80 10*3/uL (4.50-10.00)
[2025-01-05 04:47] LABS: African American GFR (CKD) >90 (>60 ml/min/1.73 sqM); Anion Gap 5 mmol/L; Blood Urea Nitrogen 10 mg/dL (9-20); Calcium 7.2 mg/dL (8.4-10.2); Carbon Dioxide 37 mmol/L (22-30); Chloride 93 mmol/L (98-107); Glucose 83 mg/dL (74-99); Magnesium 1.9 mg/dL (1.6-2.3); Non-African American GFR(CKD) 87 (>60 ml/min/1.73 sqM); Potassium 3.9 mmol/L (3.5-5.1); Sodium 135 mmol/L (137-145)
[2025-01-05 06:03] LABS: ABG HCO3 38 mmol/L (21-25); ABG PCO2 46 mmHg (35-45); ABG PH 7.53 (7.35-7.45); ABG PO2 191 mmHg (83-108); ABG TCO2 40 mmol/L (19-24)
[2025-01-05 06:05] LABS: Allen Test Performed? no
[2025-01-05] MEDS: MAGNESIUM SULFATE-D5W PMX 1 GM in DEXTROSE/WATER 1 100ML.BAG IVPB ONE (06:30)
[2025-01-05] MEDS: POTASSIUM BICARBONATE/CIT AC 20 MEQ TABLET.EFF NG-TUBE SCH ×2 (06:30→19:08)
--- NOTE | 2025-01-05 08:35 | XR ---
EXAMINATION TYPE: XR chest 1V portable DATE OF EXAM: 01/05/2025 5:11 AM COMPARISON: 01/04/2025 CLINICAL INDICATION: Male, 44 years old with history of mechanical ventilation, difficulty breathing TECHNIQUE: XR chest 1V portable view(s) obtained. FINDINGS: The heart size is normal. Electronic devices overlie the chest. The pulmonary vasculature is normal. Small left pleural effusion is present. Mild increased lung markings are present diffusely greater in the right lower lobe. Correlate for some pulmonary edema. Endotracheal tube tip is 5.3 cm above the yoli. Nasogastric tube transverses the thorax. Right cent ral venous catheter is present with tip in the right atrium. Left-sided chest tube is present. Small residual apical pneumothorax is present IMPRESSION: 1. Suggestion of mild pulmonary edema. This may be more focal in the right lower lobe. Correlate for atelectasis or pneumonia. 2. Small left apical pneumothorax. 3. Small left pleural effusion. 4. Lines and catheters discussed above. [facility], , 01/05/2025 8:33 AM
--- NOTE | 2025-01-05 10:01 | P.PN ---
Subjective Progress Note Date: 01/05/25 The patient is a 44-year-old male who is currently admitted to the hospital with cardiac arrest. Ejection fraction was noted to be at 20 to 25% on admission, with repeat echocardiogram showing 30 to 35%. Normal coronary arteries on coronary angiogram. Patient is currently intubated and on vasopressors. Yesterday the patient was started on low-dose beta-ramandeep and he continues on oral amiodarone. GENERAL: Ill-appearing, malnourished and in no acute distress. Currently sedated on ventilator NECK: Supple without JVD or thyromegaly. LUNGS: Breath sounds coarse to auscultation bilaterally. Respiration equal and unlabored. HEART: Regular rate and rhythm without murmurs, rubs or gallops. S1 and S2 heard. EXTREMITIES: Normal range of motion, no edema. No clubbing or cyanosis. Peripheral pulses intact and strong. TELEMETRY: Sinus rhythm overnight LABS: WBC 17.8, hemoglobin 9.8, hematocrit 29.9, platelet 272, sodium 135, potassium 3.9, BUN 10, creatinine 1.03, magnesium 1.9 IMPRESSION: [id number]-pqqassmv cardiac arrest, repeat V. tach cardiac arrest on 01/02/25 Cardiomyopathy, possible Takotsubo Acute hypoxic respiratory failure History of EtOH abuse History of pancreatitis History of splenic vein thrombosis PLAN: Slowly increase beta-blockers as tolerated Continue supportive treatment Poor prognosis due to multiple comorbid conditions I am dictating on behalf of Dr Dennis Issa's history/physical and assessment/plan. Objective - Vital Signs Vital signs: Vital Signs Temp 97.5 F L 01/05/25 04:00 Pulse 87 01/05/25 08:25 Resp 29 H 01/05/25 07:00 BP 109/92 01/05/25 06:00 Pulse Ox 100 01/05/25 07:00 FiO2 40 01/05/25 09:22 Intake & Output 01/04/25 01/05/25 01/05/25 18:59 06:59 18:59 Intake Total 2261.887 4266.512 75.951 Output Total 2145 2150 145 Balance -1097.095 -1048.488 -69.049 Weight 66.1 kg Intake: IV 843 596 33 .9NS KVO 410 360 30 .9NS Pressure Bag 33 36 3 Piperacillin-Tazobactam 3 200 100 .375 gm In Sodium Chloride 0.9% 100 ml @ 25 mls/hr IVPB Q8HR VLAD Rx# :[id number] metroNIDAZOLE-NS PMX 500 200 100 mg In Saline 1 100ml.bag @ 100 mls/hr IVPB Q8HR VLAD Rx#:[id number] Intake, IV Titration 184.905 163.512 0.951 Amount Norepinephrine 8 mg In 0.932 0.951 Sodium Chloride 0.9% 250 ml @ 0.03 MCG/KG/MIN 3. 291 mls/hr IV .Q24H VLAD Rx#:[id number] Vasopressin 60 unit In 25.092 Sodium Chloride 0.9% 150 ml @ 0.03 UNITS/MIN 4.59 mls/hr IV .Q24H VLAD Rx#: [id number] propofoL 1,000 mg In 159.813 162.580 Empty Bag 1 bag @ 15 MCG/ KG/MIN 4.788 mls/hr IV . [id number] VLAD Rx#:[id number] Tube Feeding 20 252 42 Other 90 Output: Chest Tube Drainage 110 0 20 Thora-Vent Left Anterior 110 0 20 Chest Urine 2035 2150 125 Other: Voiding Method Indwelling Catheter Indwelling Catheter # Bowel Movements 1 ABP, PAP, CO, CI - Last Documented Arterial Blood Pressure 136/89 - Labs CBC & Chem 7: 01/05/25 03:50 01/05/25 03:50 Labs: Abnormal Lab Results - Last 24 Hours (Table) 01/04/25 01/05/25 01/05/25 Range/Units 11:33 03:50 03:50 WBC 17.80 H (4.50-10.00) 10*3/uL RBC 3.29 L (4.40-5.60) 10*6/uL Hgb 9.8 L (13.0-17.0) g/dL Hct 29.9 L (39.6-50.0) % Immature Gran # 0.07 H (0.00-0.04) 10*3/uL Neutrophils # 15.94 H (1.80-7.70) 10*3/uL ABG pH (7.35-7.45) ABG pCO2 (35-45) mmHg ABG pO2 (83-108) mmHg ABG HCO3 (21-25) mmol/L ABG Total CO2 (19-24) mmol/L ABG O2 Saturation (94-97) % Hemoglobin (13.0-17.5) gm/dL Sodium 135 L (137-145) mmol/L Chloride 93 L (98-107) mmol/L Carbon Dioxide 37 H (22-30) mmol/L POC Glucose (mg/dL) 116 H (70-110) mg/dL Calcium 7.2 L (8.4-10.2) mg/dL 01/05/25 Range/Units 06:00 WBC (4.50-10.00) 10*3/uL RBC (4.40-5.60) 10*6/uL Hgb (13.0-17.0) g/dL Hct (39.6-50.0) % Immature Gran # (0.00-0.04) 10*3/uL Neutrophils # (1.80-7.70) 10*3/uL ABG pH 7.53 H (7.35-7.45) ABG pCO2 46 H (35-45) mmHg ABG pO2 191 H (83-108) mmHg ABG HCO3 38 H (21-25) mmol/L ABG Total CO2 40 H (19-24) mmol/L ABG O2 Saturation 99.9 H (94-97) % Hemoglobin 10.4 L (13.0-17.5) gm/dL Sodium (137-145) mmol/L Chloride (98-107) mmol/L Carbon Dioxide (22-30) mmol/L POC Glucose (mg/dL) (70-110) mg/dL Calcium (8.4-10.2) mg/dL Microbiology - Last 24 Hours (Table) 01/02/25 23:45 Gram Stain - Final Sputum Sputum Culture - Final 01/02/25 16:07 Blood Culture - Preliminary Blood 12/31/24 09:04 Gram Stain - Final Sputum Sputum Culture - Final Angelica glabrata Angelica dubliniensis
--- NOTE | 2025-01-05 10:53 | P.PN ---
Subjective Progress Note Date: 01/05/25 SURGICAL PROGRESS NOTE CHIEF COMPLAINT: Cardiac arrest HISTORY OF PRESENT ILLNESS: Patient in the ICU after another cardiac arrest on 01/01. He is intubated and on mechanical ventilation. WBC 17 PHYSICAL EXAM: VITAL SIGNS: Reviewed. GENERAL: no acute distress. Intubated and on mechanical ventilation ABDOMEN: Soft. Nondistended. ASSESSMENT: 1. Chronic cholecystitis PLAN: - No surgical intervention planned Physician Patrol Lady note has been reviewed by physician. Signing provider agrees with the documented findings, assessment, and plan of care. Objective - Vital Signs Vital signs: Vital Signs Temp 97.5 F L 01/05/25 04:00 Pulse 87 01/05/25 08:25 Resp 29 H 01/05/25 07:00 BP 109/92 01/05/25 06:00 Pulse Ox 100 01/05/25 07:00 FiO2 40 01/05/25 09:22 Intake & Output 01/04/25 01/05/25 01/05/25 18:59 06:59 18:59 Intake Total 5484.598 8629.512 75.951 Output Total 2145 2150 145 Balance -1097.095 -1048.488 -69.049 Weight 66.1 kg Intake: IV 843 596 33 .9NS KVO 410 360 30 .9NS Pressure Bag 33 36 3 Piperacillin-Tazobactam 3 200 100 .375 gm In Sodium Chloride 0.9% 100 ml @ 25 mls/hr IVPB Q8HR VLAD Rx# :[id number] metroNIDAZOLE-NS PMX 500 200 100 mg In Saline 1 100ml.bag @ 100 mls/hr IVPB Q8HR VLAD Rx#:[id number] Intake, IV Titration 184.905 163.512 0.951 Amount Norepinephrine 8 mg In 0.932 0.951 Sodium Chloride 0.9% 250 ml @ 0.03 MCG/KG/MIN 3. 291 mls/hr IV .Q24H VLAD Rx#:[id number] Vasopressin 60 unit In 25.092 Sodium Chloride 0.9% 150 ml @ 0.03 UNITS/MIN 4.59 mls/hr IV .Q24H VLAD Rx#: [id number] propofoL 1,000 mg In 159.813 162.580 Empty Bag 1 bag @ 15 MCG/ KG/MIN 4.788 mls/hr IV . [id number] [facility] Rx#:[id number] Tube Feeding 20 252 42 Other 90 Output: Chest Tube Drainage 110 0 20 Thora-Vent Left Anterior 110 0 20 Chest Urine 2035 2150 125 Other: Voiding Method Indwelling Catheter Indwelling Catheter # Bowel Movements 1 ABP, PAP, CO, CI - Last Documented Arterial Blood Pressure 136/89 - Labs CBC & Chem 7: 01/05/25 03:50 01/05/25 03:50 Labs: Abnormal Lab Results - Last 24 Hours (Table) 01/04/25 01/05/25 01/05/25 Range/Units 11:33 03:50 03:50 WBC 17.80 H (4.50-10.00) 10*3/uL RBC 3.29 L (4.40-5.60) 10*6/uL Hgb 9.8 L (13.0-17.0) g/dL Hct 29.9 L (39.6-50.0) % Immature Gran # 0.07 H (0.00-0.04) 10*3/uL Neutrophils # 15.94 H (1.80-7.70) 10*3/uL ABG pH (7.35-7.45) ABG pCO2 (35-45) mmHg ABG pO2 (83-108) mmHg ABG HCO3 (21-25) mmol/L ABG Total CO2 (19-24) mmol/L ABG O2 Saturation (94-97) % Hemoglobin (13.0-17.5) gm/dL Sodium 135 L (137-145) mmol/L Chloride 93 L (98-107) mmol/L Carbon Dioxide 37 H (22-30) mmol/L POC Glucose (mg/dL) 116 H (70-110) mg/dL Calcium 7.2 L (8.4-10.2) mg/dL 01/05/25 Range/Units 06:00 WBC (4.50-10.00) 10*3/uL RBC (4.40-5.60) 10*6/uL Hgb (13.0-17.0) g/dL Hct (39.6-50.0) % Immature Gran # (0.00-0.04) 10*3/uL Neutrophils # (1.80-7.70) 10*3/uL ABG pH 7.53 H (7.35-7.45) ABG pCO2 46 H (35-45) mmHg ABG pO2 191 H (83-108) mmHg ABG HCO3 38 H (21-25) mmol/L ABG Total CO2 40 H (19-24) mmol/L ABG O2 Saturation 99.9 H (94-97) % Hemoglobin 10.4 L (13.0-17.5) gm/dL Sodium (137-145) mmol/L Chloride (98-107) mmol/L Carbon Dioxide (22-30) mmol/L POC Glucose (mg/dL) (70-110) mg/dL Calcium (8.4-10.2) mg/dL Microbiology - Last 24 Hours (Table) 01/02/25 23:45 Gram Stain - Final Sputum Sputum Culture - Final 01/02/25 16:07 Blood Culture - Preliminary Blood 12/31/24 09:04 Gram Stain - Final Sputum Sputum Culture - Final Angelica glabrata Angelica dubliniensis
[2025-01-05 11:24] LABS: Glucose,Whole Blood 155 mg/dL (70-110)
--- NOTE | 2025-01-05 11:28 | P.PN ---
Subjective Progress Note Date: 01/05/25 Cardiopulmonary arrest. This is a 44-year-old white male brought into the emergency room earlier this mo rning by EMS with altered mental status and seizure-like activity. Apparently the patient is known to have past medical history of alcohol use, chronic pancreatitis, pancreatic pseudocyst, history of hypertension, previous history of TIA, patient had a sudden feeling of dizziness, and asked his roommate to call EMS. Apparently upon arrival of EMS he was found to have seizure-like activity and went unresponsive on the monitor the patient was noted to have ventricular tachycardia, CPR was started and the patient received 1 shock. Patient became conscious again, and his rhythm came back with return of circulation. Apparently for the last few days the patient has been experiencing episodes of nausea and vomiting and episodes of low blood sugar. In addition, patient has been complaining of episodes of diarrhea for the last 2 weeks. Patient normally follows up at [facility] for his pancreatitis and pseudocyst. He is also known to have history of splenic vein thrombosis, maint ained on anticoagulation. And has been taking Eliquis until yesterday. Patient drinks occasionally at this point, used to be a heavy drinker in the past. I evaluated the patient in the ER, and considering his cardiac arrest history, I recommended admitting the patient to the ICU, and he is to be seen by other consultants including cardiology. During my evaluation the patient was not in any distress, he was hemodynamically stable, all his labs were reviewed. Patient was seen today on 12/25/2024, remains in the ICU mostly because of his profound electrolyte abnormalities including hypocalcemia, hypomagnesium , hypokalemia, these are all being addressed accordingly mostly related to his GI symptoms and his pancreatitis. As well as diarrhea and nausea and vomiting. Patient is not in any distress, he is on 2 L nasal cannula, has been receiving potassium almost every 2 hours 20 mEq orally remains empirically on Zosyn, continues to have some vague abdominal pain and discomfort. WBC count today is 12.2 hemoglobin 9.5 electrolytes showed low sodium of 131 low potassium 2.9 but few hours later it was up to 3.8 renal functioning is normal calcium is up to 5.8 today. Add magnesium is up to 2.1, these are all being addressed daily. Cardiac sheppard the patient is in sinus rhythm, no further episodes of tachyarrhythmia. Seen today on 12/26/2024, patient remains in the ICU, feeling better, he has no active pulmonary symptoms no GI symptoms and no cardiac symptoms. Labs have shown significant improvement his potassium today is 4.5 calcium is up to 6 however his albumin is 1.9 which makes his corrected calcium 7.68., Improved, but not up to 8.4 or higher. Hence would recommend more calcium gluconate to be given for this patient. Magnesium not done today however was 2.1 yesterday. Seen today on 12/27/2024, patient is doing well, asymptomatic. Has some vague abdominal pain no cough no wheezing no shortness of breath no chest pain. No palpitations CBC showed leukocytosis WBC count of 15.9 hemoglobin 8.8. His electrolytes are normal potassium is 3.8 calcium is up to 6.8/uncorrected to albumin. 01/02/25 - He was seen and examined in the ICU, room 258. He was previously seen by pulmonary/critical care up until 12/27/2024, at which time we signed off care. Since that time, on 12/30/2024 he underwent a cardiac catheterization with Dr. Rosario which revealed normal coronary arteries, cardiomyopathy of nonischemic etiology. He was being followed by infectious disease due to possible colitis, and had been placed on antibiotics, general surgery for exploratory laparotomy in regards to cholecystitis and colitis. Late in the evening on 01/01/2025 a CODE BLUE was called in which the patient had diminished breath sounds and was tachypneic. He became bradycardic and then went asystole, at which time CPR was initiated. CODE BLUE as per the event note in the patient's chart. ROSC was achieved with 2 rounds of epinephrine. At that time patient was intubated, transferred to the ICU and initiated on a bicarb drip. He was noted to have pneumothorax of the left lung. He was intubated on 01/01/2025 and has not been mechanically ventilated with a tidal volume 400, respiratory rate 22, FiO2 100% and PEEP of 10. Most recent blood gas showed pO2 66, pCO2 45 and pH 7.37. Most recent labs showed WBCs 27.2, hemoglobin 6.9, hematocrit 21.8, platelet 339; sodium 141, potassium 2.6, bicarb 20, BUN <2, creatinine 0.48, lactic acid 11.7, calcium 5.6, ionized calcium 3.4, magnesium 1.2, total bilirubin 1.2, AST 99, ALT 29, alkaline phosphatase 183, TSH 0.551. He is currently receiving norepinephrine 0.39 mcg/kg/min, and sedated with fentanyl at 1 mcg/kg/h, propofol at 50 mcg/kg/h, and received an additional 10 mg of Nimbex prior to left radial arterial line placement. He continues receiving vancomycin, Zosyn, Flagyl and Diflucan. Progress note dated January 03, 2025. This is a 44-year-old male seen in room 258. He remains on mechanical ventilator. He is on volume assist-control, rate 22, tidal volume 400, FiO2 70%, PEEP of 10. Blood gases show pO2 123, pCO2 50, pH of 7.46. He has a left Thora vent in place. He is on fentanyl at 1.5 mcg/kg/h, D5W with 3 ampoules of sodium bicarbonate at 150 cc an hour, propofol at 50 mcg/kg/min, saline at 30 cc an hour, norepinephrine at 6 mcg/min, and vasopressin at 0.03 units/min. Sodium bicarbonate drip can be discontinued. The patient is currently also on fluconazole, Flagyl, vancomycin, and Zosyn. Current labs include a white count of 19.7, hemoglobin 8.3, hematocrit 25, and platelet count 304,000. Sodium 134, potassium 2.9, chloride 94, CO2 35, BUN 2, creatinine 0.63. Calcium is 5.3, and ionized calcium is low at 3.4. Albumin is 1.4. Cultures thus far are negative, save for the sputum showing evidence of yeast. Chest x-ray shows the left lung to be expanded, with a very tiny pneumothorax. There is diffuse changes throughout, largely unchanged. Progress note dated January 04, 2025. 44-year-old male seen today in room 258. He continues on volume assist-control, rate 22, tidal volume 400, 60% FiO2, PEEP of 10. Blood gases show pO2 of 93, pCO2 50, pH of 7.49. Is currently on propofol at 40 mcg/kg/min, vasopressin at 0.02 units/min, saline at 40 cc an hour, and tube feedings, at 21 cc an hour, which is goal. He continues on Diflucan, Flagyl, and Zosyn. White count is 23.2, hemoglobin 9, hematocrit 26.7, and platelet count is 319,000. Sodium 134, potassium 3.8, chloride 92, CO2 37, BUN is 5, with creatinine 0.79. Glucose 196. Calcium 6.5. Magnesium 1.6. Tiny apical left pneumothorax. Thora vent device is still noted. On 01/05/2025, the patient is being seen for a follow-up. This morning, the patient remains intubated on a mechanical ventilator. The patient is on propo fol running at 40 mcg/kg/min. Earlier this morning, the patient was noted to be slightly hypotensive and started on norepinephrine which is currently running at low-dose of 0.01 mcg/kg/min. Nevertheless, the dose needs to be adjusted as the patient continues to have and run a low blood pressure. He remains on the mechanical ventilator assist-control mode rate of 22, tidal volume of 400, FiO2 50% with a PEEP of 10. Fluid balance is -2.1 L over the past 24 hours. His cardiac rhythm is sinus. He is covered with broad-spectrum antibiotics and the patient is currently on a combination of Zosyn and Flagyl and Diflucan and he remains on IV Lasix. He is also on tube feeds and the patient is using [employer] 1.4 at a rate of 21 cc an hour. The blood work from today shows a WBC count of 17.8 with a hemoglobin of 9.8 and a platelet count of 272. Blood gas showed a pH of 7.53 with a NNP196 and PO2 of 191. BUN is 10 with a creatinine of 1.03 and electrolytes show a sodium level of 135, serum bicarb is at 37. No other significant events overnight. As stated earlier, the patient has non ischemic cardiomyopathy. A outpatient cardiac arrest related to V. tach and another cardiac arrest on 01/02/2025 with development of acute pulmonary edema. During the resuscitation and post CPR, he also developed a left-sided pneumothorax. Chest x-ray from today shows ongoing pulmonary edema. Pne umothorax has recovered. No evidence of any air leak and the patient has a Thora vent over the left anterior chest. Objective - Vital Signs Vital signs: Vital Signs Temp 97.5 F L 01/05/25 04:00 Pulse 83 01/05/25 08:03 Resp 29 H 01/05/25 07:00 BP 109/92 01/05/25 06:00 Pulse Ox 100 01/05/25 07:00 FiO2 60 01/05/25 07:58 Intake & Output 01/04/25 01/05/25 01/05/25 18:59 06:59 18:59 Intake Total 2795.476 9716.512 75 Output Total 2145 2150 145 Balance -1097.095 -1048.488 -70 Weight 66.1 kg Intake: IV 843 596 33 .9NS KVO 410 360 30 .9NS Pressure Bag 33 36 3 Piperacillin-Tazobactam 3 200 100 .375 gm In Sodium Chloride 0.9% 100 ml @ 25 mls/hr IVPB Q8HR VLAD Rx# :[id number] metroNIDAZOLE-NS PMX 500 200 100 mg In Saline 1 100ml.bag @ 100 mls/hr IVPB Q8HR VLAD Rx#:[id number] Intake, IV Titration 184.905 163.512 Amount Norepinephrine 8 mg In 0.932 Sodium Chloride 0.9% 250 ml @ 0.03 MCG/KG/MIN 3. 291 mls/hr IV .Q24H VLAD Rx#:[id number] Vasopressin 60 unit In 25.092 Sodium Chloride 0.9% 150 ml @ 0.03 UNITS/MIN 4.59 mls/hr IV .Q24H VLAD Rx#: [id number] propofoL 1,000 mg In 159.813 162.580 Empty Bag 1 bag @ 15 MCG/ KG/MIN 4.788 mls/hr IV . [id number] VLAD Rx#:[id number] Tube Feeding 20 252 42 Other 90 Output: Chest Tube Drainage 110 0 20 Thora-Vent Left Anterior 110 0 20 Chest Urine 2035 2150 125 Other: Voiding Method Indwelling Catheter Indwelling Catheter # Bowel Movements 1 ABP, PAP, CO, CI - Last Documented Arterial Blood Pressure 136/89 - Exam No acute distress, sedated, with an orally placed endotracheal tube. Sedated and the patient is calm comfortable. The patient is currently on propofol HEENT examination is grossly unremarkable. Mucous membranes are moist. No oral lesions. Neck supple. Full range of motion. No adenopathy thyromegaly or neck vein distention. Cardiovascular examination reveals regular rhythm rate. S1-S2 normal. No S3 or S4. No discernible murmur noted. Heart sounds are distant. The patient is currently wearing a LifeVest. Lungs reveal scattered bilateral mild to moderate rhonchorous breath sounds. No wheezes. No crackles. Breath sounds equal bilaterally. The patient has a Thora vent over the left anterior chest area. Breath sounds are equal and symmetrical bilaterally. Abdomen soft without bowel sounds. No masses or tenderness. Extremities are intact. No cyanosis clubbing and there is trace edema lower extremities bilaterally and some in the upper extremities. Skin is without rash or lesion. Neurologic examination cannot be evaluated at this time. The patient is sedated and the patient is calm and comfortable secondary to the mechanical ventilator. - Labs CBC & Chem 7: 01/05/25 03:50 01/05/25 03:50 Labs: Abnormal Lab Results - Last 24 Hours (Table) 01/04/25 01/05/25 01/05/25 Range/Units 11:33 03:50 03:50 WBC 17.80 H (4.50-10.00) 10*3/uL RBC 3.29 L (4.40-5.60) 10*6/uL Hgb 9.8 L (13.0-17.0) g/dL Hct 29.9 L (39.6-50.0) % Immature Gran # 0.07 H (0.00-0.04) 10*3/uL Neutrophils # 15.94 H (1.80-7.70) 10*3/uL ABG pH (7.35-7.45) ABG pCO2 (35-45) mmHg ABG pO2 (83-108) mmHg ABG HCO3 (21-25) mmol/L ABG Total CO2 (19-24) mmol/L ABG O2 Saturation (94-97) % Hemoglobin (13.0-17.5) gm/dL Sodium 135 L (137-145) mmol/L Chloride 93 L (98-107) mmol/L Carbon Dioxide 37 H (22-30) mmol/L POC Glucose (mg/dL) 116 H (70-110) mg/dL Calcium 7.2 L (8.4-10.2) mg/dL 01/05/25 Range/Units 06:00 WBC (4.50-10.00) 10*3/uL RBC (4.40-5.60) 10*6/uL Hgb (13.0-17.0) g/dL Hct (39.6-50.0) % Immature Gran # (0.00-0.04) 10*3/uL Neutrophils # (1.80-7.70) 10*3/uL ABG pH 7.53 H (7.35-7.45) ABG pCO2 46 H (35-45) mmHg ABG pO2 191 H (83-108) mmHg ABG HCO3 38 H (21-25) mmol/L ABG Total CO2 40 H (19-24) mmol/L ABG O2 Saturation 99.9 H (94-97) % Hemoglobin 10.4 L (13.0-17.5) gm/dL Sodium (137-145) mmol/L Chloride (98-107) mmol/L Carbon Dioxide (22-30) mmol/L POC Glucose (mg/dL) (70-110) mg/dL Calcium (8.4-10.2) mg/dL Microbiology - Last 24 Hours (Table) 01/02/25 16:07 Blood Culture - Preliminary Blood 01/02/25 23:45 Gram Stain - Preliminary Sputum Sputum Culture - Preliminary 12/31/24 09:04 Gram Stain - Final Sputum Sputum Culture - Final Angelica glabrata Angelica dubliniensis Assessment and Plan Plan: [id number] cardiac arrest likely from V. tach. Repeat cardiac arrest likely from V. tach on 01/02/2025. The patient is hypotensive, probably cardiogenic in nature and the patient is not on low-dose norepinephrine. Chest x-ray still showing a component of pulmonary edema. Cardiac rhythm is sinus. Cardiomyopathy, EF 20 to 25%, nonischemic, possible Takotsubo, repeat echo 30- 35% Acute pulmonary edema with secondary acute hypoxic respiratory failure and subs equent V. tach induced cardiac arrest Acute hypoxic respiratory failure, remains intubated on mechanical ventilator. This is send related to acute pulmonary edema and subsequently patient also developed a left-sided pneumothorax. Left pneumothorax, S/P Thora vent placement. No evidence of any air leak in the Thora vent is attached to a Pleur-evac and the chest x-ray from today shows questionable tiny left apical pneumothorax. History of chronic pancreatitis. Hyperammonemia, improved and the repeat ammonia level is down to 10 chronic alcohol abuse and alcoholic liver disease History of splenic vein thrombosis. History of syncope. History of chronic diarrhea. Lactic acidosis. Hypocalcemia, treated Hypomagnesemia, treated Plan: Continue ventilator support. No vent changes were done today. Keep the patient sedated on propofol Titrate norepinephrine to maintain a mean arterial pressure above 65 Hold beta-blockers for now May need dobutamine for augmentation of his cardiac output. Cardiac rhythm is sinus Electrolytes have improved Continue enteral feeding for additional support Continue broad-spectrum antibiotics and the patient is currently combination of Zosyn Flagyl and Diflucan Monitor electrolytes Monitor the left-sided pneumothorax and there is no evidence of any air leak while being on a Thora vent Not ready for any weaning at this point. Will continue to monitor the progress and make further recommendations based on his condition. This evaluation was done in 33 minutes. Time with Patient: Greater than 30
[2025-01-05 17:33] LABS: Glucose,Whole Blood 197 mg/dL (70-110)
--- NOTE | 2025-01-05 23:27 | XR ---
EXAM: XR Chest, 1 View CLINICAL HISTORY: OG tube placement TECHNIQUE: Frontal view of the chest. COMPARISON: 01/04/2025 FINDINGS: Lungs: Moderate diffuse airspace opacities throughout both lungs, suggest pulmonary edema versus pneumonia, similar. Lungs are slightly better inflated Pleural space: Suspect small left pleural effusion. Mediastinum: Unremarkable. Normal mediastinal contour. Bones/joints: No acute findings. Tubes, lines and devices: Tip of endotracheal tube is about 6.3 cm above the yoli. Tip of enteric tube is in the body of the stomach. Tip of a catheter projects over midportion of left subclavian vessel. Right jugular central venous catheter is unchanged in position. These are similar. IMPRESSION: No substantial change.
[2025-01-06 01:25] LABS: Glucose,Whole Blood 209 mg/dL (70-110)
[2025-01-06 05:35] LABS: ABG HCO3 35 mmol/L (21-25); ABG PCO2 41 mmHg (35-45); ABG PH 7.54 (7.35-7.45); ABG PO2 87 mmHg (83-108); ABG TCO2 36 mmol/L (19-24)
[2025-01-06 05:37] LABS: Allen Test Performed? no
--- NOTE | 2025-01-06 05:43 | P.PN ---
Subjective Progress Note Date: 01/05/25 This is a pleasant 44-year-old male who was recently admitted after brief cardiac arrest with multiple electrolyte abnormalities being closely monitored. Patient being followed by cardiology and is status post cardiac catheterization recommending maximizing medical management and normal coronary arteries noted. Patient reports to having increasing pain and also generalized weakness although reports will be going home on discharge. Patient did have an elevated white count that had been trending down although is slightly up today with infectious disease following and will repeat CT abdomen for further evaluation. Continue current antibiotics at this time. Case management is following as plan is for LifeVest on discharge. Recommend incentive spirometer as patient is requiring oxygen and may require oxygen on discharge. Will reattempt home oxygen evaluation. Encourage increase activity as tolerated with sitting up out of the bed more frequently. Labs reviewed and white count is 25.52, hemoglobin is 8.8, platelets 446, sodium 137 with a potassium of 3.5, BUN is 5 and creatinine 0.33. Calcium is slightly low at 6.2, total bili is 1.4. 12/31/2024 Patient is seen in follow-up with multiple consultations following. White count was elevated although slightly improving with infectious disease following we will continue current regimen at this time. Patient continues to report short ness of breath and generalized pain and continues to require oxygen. Will need home O2 assessment. Patient underwent CT abdomen and will consult general surgery for evaluation. Encouraged increased activity as tolerated with sitting up more frequently in the chair. 01/01/2025 Patient seen and evaluated this morning currently scheduled to undergo HIDA scan per general surgery and patient is currently requesting increase in pain medications as she reports diffuse pain. Pain medications through the IV are currently on hold as patient will be undergoing HIDA scan. Patient's white count is elevated with infectious disease following maintained on Zosyn and will continue. Patient is afebrile with no reports of chest pain or palpitations. Patient is reporting some congestion and occasional shortness of breath. Will order chest x-ray as well. Continue DuoNeb treatments and supplemental oxygen as needed. Patient currently maintained on 5 L. Would recommend PT/OT therapy evaluation as patient has had prolonged cough elevation and appears frail and extremely weak. 01/02/2025 Patient is seen in follow-up was a CODE BLUE on 3 S. and was transferred to ICU intubated for respiratory arrest with cardiac arrest and ROSC received. Patient remains a full code per sister and will continue on mechanical ventilation with an FiO2 of 100% and PEEP of 10 currently. Blood pressures are soft and patient is maintained on pressor support and hemoglobin was noted to be 6.9 this morning and will give 1 unit of PRBC. White count remains elevated at 24.18 and maintained on antibiotics with infectious disease following. Sodium is 141 with a potassium of 3.0, creatinine 0.48, blood sugars elevated, lactic acid 5.1 with a calcium that is low at 5.6, magnesium 1.2. Prognosis remains extremely guarded and CODE STATUS needs to be addressed again. 01/03/2025 Patient is seen in follow-up in the ICU maintained on mechanical ventilation and FiO2 was adjusted per pulmonary masticator but FiO2 is currently 60%. Patient maintained on pressor support including Levophed and vasopressin and also receiving Lasix. Blood sugars have been elevated and will adjust insulins accordingly including increasing long-acting. Patient is continued on tube feeds and will continue at this time. Per nursing staff patient did require Chris hugger for some time for hypothermia. Hemoglobin is stable at 8.3 status post 1 unit of PRBC, white count remains elevated at 19.68, sodium is 134 and potassium was again 2.9 with replacement of 3.5 and continued on protocol creatinine is stable at 0.63. Preliminary sputum culture from 12/31/2024 showing yeast species. 01/04/2025 Patient is seen in follow-up continues to be in the ICU on mechanical ventilation with multiple consultations following. FiO2 is 60% and patient is continued on low-dose pressor and support, Levophed has been discontinued and p atient has been weaned off fentanyl and patient is not on Versed at this time. Patient continues on sedation with propofol and per nursing staff will undergo sedation trials to assess mentation. Patient is continued on antibiotics and will continue with infectious disease following. Blood sugars have been on the lower side and tube feedings have been started and tolerating thus far working on goal and will discontinue long-acting insulin and monitor closely with just Accu-Cheks and sliding scale for now. Prognosis remains extremely guarded and patient remains full code per family at this time. White count remains elevated at 23.15, hemoglobin is stable at 9.0 with no active bleeding noted, platelets are 319, sodium is 134 with a potassium of 3.8, BUN is 5 and creatinine is 0.79. Magnesium is 1.6 and receiving replacement. 01/05/2025 Patient is seen in follow-up today maintained on mechanical ventilation with no plans of weaning today continues on low-dose Levophed and other pressor support being weaned. Per nursing staff patient's blood pressures were extremely low overnight requiring reinitiation of the Levophed which is currently being weaned as tolerated. Patient is maintained on mechanical ventilation with an FiO2 of 40% PEEP is at 10. Patient remains full code and will attempt to contact family to discuss treatment plan and overall prognosis. Patient continues with Pleurx catheter in the left chest wall with no leak noted recommending to continue for another 24 hours as there was a noted tiny pneumothorax on the left on imaging. Per nursing staff patient is experiencing a mild rectal prolapse and would recommend keeping the area moist and lubricated as much as possible. Patient continues to have loose stools and is maintained on antibiotics with infectious disease following. Review of systems: Unable to assess as patient is now intubated and sedated All medications have been reviewed PHYSICAL EXAMINATION: GENERAL: The patient is alert and oriented x0, placed back on mechanical vent with an FiO2 of 40 % and PEEP is 10. Well developed, elderly appearing, thin built, cachectic, chronically ill-appearing HEENT: Pupils are round and equally reacting to light. EOMI. no scleral icterus. No conjunctival pallor. Normocephalic, atraumatic. No pharyngeal erythema. No thyromegaly. CARDIOVASCULAR: S1 and S2 muffled PULMONARY: diminished breath sounds bilaterally with no wheezing, scattered coarse rhonchi noted with upper bronchial congestion. Crackles noted at the bases ABDOMEN: soft. Nontender on exam. Thin non-distended, normoactive bowel sounds. No palpable organomegaly. MUSCULOSKELETAL: No joint swelling or deformity. EXTREMITIES: No cyanosis, clubbing, or pedal edema. NEUROLOGICAL: Gross neurological examination did not reveal any focal deficits. Unable to completely assess as patient is sedated and on mechanical ventilation SKIN: No rashes. Extremely pale Assessment: Cardiac arrest, possibly secondary to ventricular tachycardia secondary to multiple electrolyte abnormalities Respiratory arrest with cardiac arrest requiring mechanical ventilation 01/01/2025 Severe hypokalemia, hypomagnesemia, hypocalcemia, improving after replacement, continue to monitor closely History of EtOH Nonischemic cardiomyopathy possible Takotsubo, EF was 20 to 25%, repeat is 30- 35, being fitted for LifeVest Possible acute colitis as noted on imaging Diabetes mellitus, type II, uncontrolled with hyperglycemia History of pancreatitis Tachycardia Anemia, chronic, hemoglobin was 6.9 today and transfused 1 unit of PRBC 01/02/2025, improved Concerns of possible right lower lobe pneumonia, possibly aspiration History of splenic vein thrombosis, was on Eliquis Hepatic encephalopathy Moderate protein calorie malnutrition with a BMI of 17.7 GI prophylaxis DVT prophylaxis Full code Plan: Recommend to continue with current medications and management with multiple consultations following. Patient had respiratory arrest with cardiac arrest on 01/01/2025 and was placed on mechanical ventilation and is now in the ICU continued on sedatives and pressor support. Weaning pressor support and Levophed was reinitiated for low blood pressure overnight and is being weaned as tolerated. Versed and fentanyl have been discontinued and patient is maintained on propofol infectious disease following as white count remains elevated and patient is maintained on antibiotics and will continue. General surgery following as there was concern of cholecystitis with discussion of possible surgical intervention although no plans for intervention at this time Cardiology following and patient is status post catheterization recommending maximizing medical management and case management following and has received LifeVest. Patient does currently have LifeVest on Continue monitoring Accu-Cheks AC and at bedtime and adjust accordingly. Blood sugars have been on the lower side and will hold long-acting and continue with just sliding scale for now Follow-up on repeat labs and replace electrolytes per protocol. Replace potassium and magnesium Per nursing staff sister reports patient is full code and to remain full code per family. CODE STATUS needs to be readdressed and overall prognosis is extremely poor and guarded at this time The impression and plan of care has been dictated by Ana Duggan, Nurse Practitioner as directed. Dr. Koby MD I have performed a history and examination and MDM of this patient, discussed the same with the dictator, and agree with the dictator's assessment and plan as written ,documented as a scribe. Based on total visit time, I have performed more than 50% of the visit. Objective - Vital Signs Vital signs: Vital Signs Temp 98.0 F 01/06/25 00:00 Pulse 103 H 01/06/25 03:00 Resp 32 H 01/06/25 03:00 BP 102/79 01/05/25 19:00 Pulse Ox 95 01/06/25 03:00 FiO2 40 01/06/25 04:09 Intake & Output 01/05/25 01/05/25 01/06/25 06:59 18:59 06:59 Intake Total 0428.602 4463.091 985.177 Output Total 2150 1281 635 Balance -1048.488 -187.909 350.177 Weight 66.1 kg 66.1 kg Intake: IV 596 769 234 .9NS KVO 360 330 210 .9NS Pressure Bag 36 39 24 Piperacillin-Tazobactam 3 100 200 .375 gm In Sodium Chloride 0.9% 100 ml @ 25 mls/hr IVPB Q8HR VLAD Rx# :[id number] metroNIDAZOLE-NS PMX 500 100 200 mg In Saline 1 100ml.bag @ 100 mls/hr IVPB Q8HR VLAD Rx#:[id number] Intake, IV Titration 163.512 199.091 331.177 Amount Norepinephrine 8 mg In 0.932 35.235 31.177 Sodium Chloride 0.9% 250 ml @ 0.03 MCG/KG/MIN 3. 291 mls/hr IV .Q24H VLAD Rx#:[id number] Piperacillin-Tazobactam 3 100 .375 gm In Sodium Chloride 0.9% 100 ml @ 25 mls/hr IVPB Q8HR VLAD Rx# :[id number] metroNIDAZOLE-NS PMX 500 100 mg In Saline 1 100ml.bag @ 100 mls/hr IVPB Q8HR VLAD Rx#:[id number] propofoL 1,000 mg In 162.580 163.856 100 Empty Bag 1 bag @ 15 MCG/ KG/MIN 4.788 mls/hr IV . [id number] VLAD Rx#:[id number] Tube Feeding 252 125 360 Other 90 60 Output: Chest Tube Drainage 0 36 Thora-Vent Left Anterior 0 36 Chest Urine 2150 1245 635 Other: Voiding Method Indwelling Catheter Indwelling Catheter Indwelling Catheter ABP, PAP, CO, CI - Last Documented Arterial Blood Pressure 119/88 - Labs CBC & Chem 7: 01/05/25 03:50 01/05/25 18:08 Labs: Abnormal Lab Results - Last 24 Hours (Table) 01/05/25 01/05/25 01/05/25 Range/Units 06:00 11:23 17:32 ABG pH 7.53 H (7.35-7.45) ABG pCO2 46 H (35-45) mmHg ABG pO2 191 H (83-108) mmHg ABG HCO3 38 H (21-25) mmol/L ABG Total CO2 40 H (19-24) mmol/L ABG O2 Saturation 99.9 H (94-97) % Hemoglobin 10.4 L (13.0-17.5) gm/dL POC Glucose (mg/dL) 155 H 197 H (70-110) mg/dL 01/06/25 01/06/25 Range/Units 01:24 05:31 ABG pH 7.54 H (7.35-7.45) ABG pCO2 (35-45) mmHg ABG pO2 (83-108) mmHg ABG HCO3 35 H (21-25) mmol/L ABG Total CO2 36 H (19-24) mmol/L ABG O2 Saturation 97.4 H (94-97) % Hemoglobin 10.7 L (13.0-17.5) gm/dL POC Glucose (mg/dL) 209 H (70-110) mg/dL Microbiology - Last 24 Hours (Table) 01/02/25 16:07 Blood Culture - Preliminary Blood 01/02/25 23:45 Gram Stain - Final Sputum Sputum Culture - Final
[2025-01-06 06:23] LABS: Basophils # (A) 0.06 10*3/uL (0.00-0.10); Basophils % (A) 0.3 %; Eosinophils # (A) 0.30 10*3/uL (0.04-0.35); Eosinophils % (A) 1.4 %; HCT 31.4 % (39.6-50.0); HGB 10.3 g/dL (13.0-17.0); Lymphocytes # (A) 1.90 10*3/uL (0.90-5.00); Lymphocytes % (A) 9.1 %; MCH 30.3 pg (27.0-32.0); MCHC 32.8 g/dL (32.0-37.0); MCV 92.4 fL (80.0-97.0); Monocytes # (A) 0.66 10*3/uL (0.20-1.00); Monocytes % (A) 3.2 %; Neutrophils # (A) 17.74 10*3/uL (1.80-7.70); Neutrophils % (A) 85.5 %; Platelet Count 282 10*3/uL (140-440); RBC 3.40 10*6/uL (4.40-5.60); RDW 21.6 % (11.5-14.5); WBC 20.77 10*3/uL (4.50-10.00)
[2025-01-06 06:34] LABS: African American GFR (CKD) 84 (>60 ml/min/1.73 sqM); Anion Gap 9 mmol/L; Blood Urea Nitrogen 16 mg/dL (9-20); Calcium 7.8 mg/dL (8.4-10.2); Carbon Dioxide 32 mmol/L (22-30); Chloride 98 mmol/L (98-107); Glucose 147 mg/dL (74-99); Magnesium 2.0 mg/dL (1.6-2.3); Non-African American GFR(CKD) 73 (>60 ml/min/1.73 sqM); Potassium 2.8 mmol/L (3.5-5.1); Sodium 139 mmol/L (137-145)
--- NOTE | 2025-01-06 07:34 | XR ---
EXAMINATION TYPE: XR chest 1V portable DATE OF EXAM: 01/06/2025 7:17 AM COMPARISON: 01/05/2025 CLINICAL INDICATION: Male, 44 years old with history of mechanical ventilation, difficulty breathing TECHNIQUE: XR chest 1V portable view(s) obtained. FINDINGS: The heart size is normal. The pulmonary vasculature is normal. Small left basilar infiltrate is present at the costophrenic angle. Electronic devices overlie the chest. Endotracheal tube tip is 6.2 cm above the yoli. Nasogastric tube transverses the thorax. Right cent ral venous catheter tip is within the deep right atrium. Left-sided chest tube is present. Pneumothor ax is not identified. IMPRESSION: 1. Mild left lower lobe infiltrate. 2. Multiple lines and catheters discussed above. [facility], , 01/06/2025 7:31 AM
[2025-01-06] MEDS: POTASSIUM BICARBONATE/CIT AC 20 MEQ TABLET.EFF NG-TUBE SCH (08:31)
[2025-01-06] MEDS: POTASSIUM CHLORIDE 20 MEQ in WATER FOR INJECTION 1 100ML.BAG IVPB SCH (08:31)
--- NOTE | 2025-01-06 08:58 | XR ---
EXAMINATION TYPE: XR chest 1V portable DATE OF EXAM: 01/06/2025 8:37 AM COMPARISON: Earlier exam CLINICAL INDICATION: Male, 44 years old with history of ptx, vented, TECHNIQUE: XR chest 1V portable view(s) obtained. FINDINGS: The heart size is normal. The pulmonary vasculature is normal. Left basilar infiltrate is present. Electronic devices overlie the chest. Endotracheal tube tip is 7 cm above the yoli. Nasogastric tube tip is in the left upper quadrant of the abdomen. Right central venous catheter tip is within the right atrium. Chest tube is in the uppe r left chest. Minimal left apical pneumothorax is present. IMPRESSION: 1. Minimal left apical pneumothorax. Left-sided chest tube remains in position. 2. Multiple lines and catheters discussed above. 3. Mild left lower lobe infiltrate. This appears stable from earlier exam [facility], , 01/06/2025 8:55 AM
--- NOTE | 2025-01-06 11:11 | P.PN ---
Subjective Progress Note Date: 01/06/25 SURGICAL PROGRESS NOTE CHIEF COMPLAINT: Cardiac arrest HISTORY OF PRESENT ILLNESS: Patient in the ICU after another cardiac arrest on 01/01. He remains intubated and on mechanical ventilation. Afebrile. WBC 20 K 2.8 and being replaced PHYSICAL EXAM: VITAL SIGNS: Reviewed. GENERAL: no acute distress. Intubated and on mechanical ventilation ABDOMEN: Soft. Nondistended. ASSESSMENT: 1. Chronic cholecystitis PLAN: - No surgical intervention planned - Surgical service will remain on standby Physician Chaplaincy note has been reviewed by physician. Signing provider agrees with the documented findings, assessment, and plan of care. Objective - Vital Signs Vital signs: Vital Signs Temp 98.4 F 01/06/25 08:00 Pulse 86 01/06/25 10:15 Resp 31 H 01/06/25 10:15 BP 98/79 01/06/25 10:15 Pulse Ox 95 01/06/25 10:15 FiO2 40 01/06/25 08:13 Intake & Output 01/05/25 01/06/25 01/06/25 18:59 06:59 18:59 Intake Total 7728.055 2037.998 559 Output Total 1281 725 90 Balance -187.909 575.998 469 Weight 66.1 kg 65.8 kg Intake: IV 769 323 369 .9NS KVO 330 290 60 .9NS Pressure Bag 39 33 9 Piperacillin-Tazobactam 3 200 100 .375 gm In Sodium Chloride 0.9% 100 ml @ 25 mls/hr IVPB Q8HR VLAD Rx# :[id number] Potassium Chloride 20 meq 100 In Water For Injection 1 100ml.bag @ 50 mls/hr IVPB Q2H VLAD Rx#: [id number] metroNIDAZOLE-NS PMX 500 200 100 mg In Saline 1 100ml.bag @ 100 mls/hr IVPB Q8HR VLAD Rx#:[id number] Intake, IV Titration 199.091 407.998 Amount Norepinephrine 8 mg In 35.235 31.177 Sodium Chloride 0.9% 250 ml @ 0.03 MCG/KG/MIN 3. 291 mls/hr IV .Q24H VLAD Rx#:[id number] Piperacillin-Tazobactam 3 100 .375 gm In Sodium Chloride 0.9% 100 ml @ 25 mls/hr IVPB Q8HR VLAD Rx# :[id number] metroNIDAZOLE-NS PMX 500 100 mg In Saline 1 100ml.bag @ 100 mls/hr IVPB Q8HR VLAD Rx#:[id number] propofoL 1,000 mg In 163.856 176.821 Empty Bag 1 bag @ 15 MCG/ KG/MIN 4.788 mls/hr IV . [id number] VLAD Rx#:[id number] Tube Feeding 125 480 160 Other 90 30 Output: Chest Tube Drainage 36 Thora-Vent Left Anterior 36 Chest Urine 1245 725 90 Other: Voiding Method Indwelling Catheter Indwelling Catheter Indwelling Catheter # Bowel Movements 1 ABP, PAP, CO, CI - Last Documented Arterial Blood Pressure 114/78 - Labs CBC & Chem 7: 01/06/25 05:36 01/06/25 05:36 Labs: Abnormal Lab Results - Last 24 Hours (Table) 01/05/25 01/05/25 01/06/25 Range/Units 11:23 17:32 01:24 WBC (4.50-10.00) 10*3/uL RBC (4.40-5.60) 10*6/uL Hgb (13.0-17.0) g/dL Hct (39.6-50.0) % Immature Gran # (0.00-0.04) 10*3/uL Neutrophils # (1.80-7.70) 10*3/uL ABG pH (7.35-7.45) ABG HCO3 (21-25) mmol/L ABG Total CO2 (19-24) mmol/L ABG O2 Saturation (94-97) % Hemoglobin (13.0-17.5) gm/dL Potassium (3.5-5.1) mmol/L Carbon Dioxide (22-30) mmol/L Glucose (74-99) mg/dL POC Glucose (mg/dL) 155 H 197 H 209 H (70-110) mg/dL Calcium (8.4-10.2) mg/dL 01/06/25 01/06/25 01/06/25 Range/Units 05:31 05:36 05:36 WBC 20.77 H (4.50-10.00) 10*3/uL RBC 3.40 L (4.40-5.60) 10*6/uL Hgb 10.3 L (13.0-17.0) g/dL Hct 31.4 L (39.6-50.0) % Immature Gran # 0.11 H (0.00-0.04) 10*3/uL Neutrophils # 17.74 H (1.80-7.70) 10*3/uL ABG pH 7.54 H (7.35-7.45) ABG HCO3 35 H (21-25) mmol/L ABG Total CO2 36 H (19-24) mmol/L ABG O2 Saturation 97.4 H (94-97) % Hemoglobin 10.7 L (13.0-17.5) gm/dL Potassium 2.8 L (3.5-5.1) mmol/L Carbon Dioxide 32 H (22-30) mmol/L Glucose 147 H (74-99) mg/dL POC Glucose (mg/dL) (70-110) mg/dL Calcium 7.8 L (8.4-10.2) mg/dL Microbiology - Last 24 Hours (Table) 01/04/25 12:04 Stool Culture - Preliminary Stool 01/02/25 16:07 Blood Culture - Preliminary Blood 01/02/25 23:45 Gram Stain - Final Sputum Sputum Culture - Final
[2025-01-06 11:54] LABS: Glucose,Whole Blood 205 mg/dL (70-110)
--- NOTE | 2025-01-06 14:46 | P.PN ---
Subjective Progress Note Date: 01/05/25 Principal diagnosis: Reason for follow-up is pneumonia/colitis Patient is a 44-year-old male with a past medical history significant for CVA TIA reflux history of recurrent/chronic pancreatitis from alcoholism and hypertension patient was brought into the hospital for lethargy seizure activity did have a cardiac arrest/V. tach requiring shock and subsequent admitted to the hospital.Patient did have a cardiac arrest last night patient is status post resuscitation intubation and transfer the ICU also have a right-sided pneumothorax. On today's visit that is 01/05/2025, patient has been afebrile, patient is intubated on the vent FiO2 is currently at 40% patient had to be restarted on pressors this morning as reported by the nursing staff no other changes he did have some diarrhea. Patient white count is down to 17.80 creatinine 1.03 blood and sputum cultures c urrently pending Objective - Vital Signs Vital signs: Vital Signs Temp 97.5 F L 01/05/25 04:00 Pulse 96 01/05/25 11:10 Resp 29 H 01/05/25 07:00 BP 109/92 01/05/25 06:00 Pulse Ox 100 01/05/25 07:00 FiO2 40 01/05/25 11:09 Intake & Output 01/04/25 01/05/25 01/05/25 18:59 06:59 18:59 Intake Total 3191.136 5004.512 160.433 Output Total 2145 2150 145 Balance -1097.095 -1048.488 15.433 Weight 66.1 kg 66.1 kg Intake: IV 843 596 33 .9NS KVO 410 360 30 .9NS Pressure Bag 33 36 3 Piperacillin-Tazobactam 3 200 100 .375 gm In Sodium Chloride 0.9% 100 ml @ 25 mls/hr IVPB Q8HR VLAD Rx# :[id number] metroNIDAZOLE-NS PMX 500 200 100 mg In Saline 1 100ml.bag @ 100 mls/hr IVPB Q8HR VLAD Rx#:[id number] Intake, IV Titration 184.905 163.512 85.433 Amount Norepinephrine 8 mg In 0.932 0.951 Sodium Chloride 0.9% 250 ml @ 0.03 MCG/KG/MIN 3. 291 mls/hr IV .Q24H VLAD Rx#:[id number] Vasopressin 60 unit In 25.092 Sodium Chloride 0.9% 150 ml @ 0.03 UNITS/MIN 4.59 mls/hr IV .Q24H VLAD Rx#: [id number] propofoL 1,000 mg In 159.813 162.580 84.482 Empty Bag 1 bag @ 15 MCG/ KG/MIN 4.788 mls/hr IV . [id number] VLAD Rx#:[id number] Tube Feeding 20 252 42 Other 90 Output: Chest Tube Drainage 110 0 20 Thora-Vent Left Anterior 110 0 20 Chest Urine 2035 2150 125 Other: Voiding Method Indwelling Catheter Indwelling Catheter # Bowel Movements 1 ABP, PAP, CO, CI - Last Documented Arterial Blood Pressure 136/89 - Exam GENERAL DESCRIPTION: Middle-age male intubated on the vent RESPIRATORY SYSTEM: Unlabored breathing , decreased breath sounds at bases HEART: S1 S2 regular rate and rhythm , ABDOMEN: Soft , no tenderness EXTREMITIES: No edema feet - Labs CBC & Chem 7: 01/06/25 05:36 01/06/25 12:40 Labs: Abnormal Lab Results - Last 24 Hours (Table) 01/05/25 01/05/25 01/05/25 Range/Units 03:50 03:50 06:00 WBC 17.80 H (4.50-10.00) 10*3/uL RBC 3.29 L (4.40-5.60) 10*6/uL Hgb 9.8 L (13.0-17.0) g/dL Hct 29.9 L (39.6-50.0) % Immature Gran # 0.07 H (0.00-0.04) 10*3/uL Neutrophils # 15.94 H (1.80-7.70) 10*3/uL ABG pH 7.53 H (7.35-7.45) ABG pCO2 46 H (35-45) mmHg ABG pO2 191 H (83-108) mmHg ABG HCO3 38 H (21-25) mmol/L ABG Total CO2 40 H (19-24) mmol/L ABG O2 Saturation 99.9 H (94-97) % Hemoglobin 10.4 L (13.0-17.5) gm/dL Sodium 135 L (137-145) mmol/L Chloride 93 L (98-107) mmol/L Carbon Dioxide 37 H (22-30) mmol/L POC Glucose (mg/dL) (70-110) mg/dL Calcium 7.2 L (8.4-10.2) mg/dL 01/05/25 Range/Units 11:23 WBC (4.50-10.00) 10*3/uL RBC (4.40-5.60) 10*6/uL Hgb (13.0-17.0) g/dL Hct (39.6-50.0) % Immature Gran # (0.00-0.04) 10*3/uL Neutrophils # (1.80-7.70) 10*3/uL ABG pH (7.35-7.45) ABG pCO2 (35-45) mmHg ABG pO2 (83-108) mmHg ABG HCO3 (21-25) mmol/L ABG Total CO2 (19-24) mmol/L ABG O2 Saturation (94-97) % Hemoglobin (13.0-17.5) gm/dL Sodium (137-145) mmol/L Chloride (98-107) mmol/L Carbon Dioxide (22-30) mmol/L POC Glucose (mg/dL) 155 H (70-110) mg/dL Calcium (8.4-10.2) mg/dL Microbiology - Last 24 Hours (Table) 01/02/25 23:45 Gram Stain - Final Sputum Sputum Culture - Final 01/02/25 16:07 Blood Culture - Preliminary Blood 12/31/24 09:04 Gram Stain - Final Sputum Sputum Culture - Final Angelica glabrata Angelica dubliniensis Assessment and Plan (1) Sepsis Current Visit: Yes Status: Acute Code(s): A41.9 - SEPSIS, UNSPECIFIED ORGANISM SNOMED Code(s): 55546863 (2) Aspiration pneumonitis Current Visit: Yes Status: Acute Code(s): J69.0 - PNEUMONITIS DUE TO INHALATION OF FOOD AND VOMIT SNOMED Code(s): 434452249 (3) Colitis Current Visit: Yes Status: Acute Code(s): K52.9 - NONINFECTIVE GASTROENTERITIS AND COLITIS, UNSPECIFIED SNOMED Code(s): 23379736 (4) Cholecystitis Current Visit: Yes Status: Acute Code(s): K81.9 - CHOLECYSTITIS, UNSPECIFIED SNOMED Code(s): 56585848 Plan: 1patient presented to hospital with sepsis in this patient who did have tachycardia hypotension elevated white count meeting criteria for SIRS source likely aspiration pneumonitis as the patient did have intractable nausea vomiting before the patient has been brought to the hospital patient also have abnormality on the abdominal pelvis CT concerning for colitis question of infectious etiology need to be ruled out patient did not recall if he has been on antibiotic in the recent past 2-sputum cultures collected on 12/31/2024 reported as yeast 3-patient CT as well as ultrasound has been suspicious for cholecystitis HIDA scan has been suspicious for chronic cholecystitis General Surgery following the patient 4patient did have a cardiac arrest this is related and intubated in the ICU hypotension, patient did have a negative MRSA nasal screen repeat cultures currently pending 5patient is afebrile white count trending down continue with Zosyn and monitor clinical course closely Dictation was produced using [employer] dictation software. please excuse any grammatical, word or spelling errors. Time with Patient: Less than 30
--- NOTE | 2025-01-06 14:46 | P.PN ---
Subjective Progress Note Date: 01/06/25 Principal diagnosis: Reason for follow-up is pneumonia/colitis Patient is a 44-year-old male with a past medical history significant for CVA TIA reflux history of recurrent/chronic pancreatitis from alcoholism and hypertension patient was brought into the hospital for lethargy seizure activity did have a cardiac arrest/V. tach requiring shock and subsequent admitted to the hospital.Patient did have a cardiac arrest last night patient is status post resuscitation intubation and transfer the ICU also have a right-sided pneumothorax. On today's visit that is 01/06/2025, Patient is afebrile this morning patient remains to be debated on the vent FiO2 is currently stable at 40% the patient is hemodynamically stable not requiring any pressor support as reported by the sitter has developed significant diarrhea Patient white count is 20.77 creatinine is 1.19 bloody sputum cultures so far negative Objective - Vital Signs Vital signs: Vital Signs Temp 98.3 F 01/06/25 12:00 Pulse 102 H 01/06/25 14:30 Resp 32 H 01/06/25 14:30 BP 104/82 01/06/25 14:30 Pulse Ox 95 01/06/25 14:30 FiO2 40 01/06/25 12:00 Intake & Output 01/05/25 01/06/25 01/06/25 18:59 06:59 18:59 Intake Total 7832.746 6243.998 971.866 Output Total 1281 725 585 Balance -187.909 575.998 386.866 Weight 66.1 kg 65.8 kg Intake: IV 769 323 461 .9NS KVO 330 290 140 .9NS Pressure Bag 39 33 21 Piperacillin-Tazobactam 3 200 100 .375 gm In Sodium Chloride 0.9% 100 ml @ 25 mls/hr IVPB Q8HR [facility] Rx# :[id number] Potassium Chloride 20 meq 100 In Water For Injection 1 100ml.bag @ 50 mls/hr IVPB Q2H [facility] Rx#: [id number] metroNIDAZOLE-NS PMX 500 200 100 mg In Saline 1 100ml.bag @ 100 mls/hr IVPB Q8HR [facility] Rx#:[id number] Intake, IV Titration 199.091 407.998 90.866 Amount Norepinephrine 8 mg In 35.235 31.177 Sodium Chloride 0.9% 250 ml @ 0.03 MCG/KG/MIN 3. 291 mls/hr IV .Q24H [facility] Rx#:[id number] Piperacillin-Tazobactam 3 100 .375 gm In Sodium Chloride 0.9% 100 ml @ 25 mls/hr IVPB Q8HR [facility] Rx# :[id number] metroNIDAZOLE-NS PMX 500 100 mg In Saline 1 100ml.bag @ 100 mls/hr IVPB Q8HR [facility] Rx#:[id number] propofoL 1,000 mg In 163.856 176.821 90.866 Empty Bag 1 bag @ 15 MCG/ KG/MIN 4.788 mls/hr IV . [id number] [facility] Rx#:[id number] Tube Feeding 125 480 360 Other 90 60 Output: Chest Tube Drainage 36 Thora-Vent Left Anterior 36 Chest Urine 1245 725 585 Other: Voiding Method Indwelling Catheter Indwelling Catheter Indwelling Catheter # Bowel Movements 1 ABP, PAP, CO, CI - Last Documented Arterial Blood Pressure 94/64 - Exam GENERAL DESCRIPTION: Middle-age male intubated on the vent RESPIRATORY SYSTEM: Unlabored breathing , decreased breath sounds at bases HEART: S1 S2 regular rate and rhythm , ABDOMEN: Soft , no tenderness EXTREMITIES: No edema feet - Labs CBC & Chem 7: 01/06/25 05:36 01/06/25 12:40 Labs: Abnormal Lab Results - Last 24 Hours (Table) 01/05/25 01/06/25 01/06/25 Range/Units 17:32 01:24 05:31 WBC (4.50-10.00) 10*3/uL RBC (4.40-5.60) 10*6/uL Hgb (13.0-17.0) g/dL Hct (39.6-50.0) % Immature Gran # (0.00-0.04) 10*3/uL Neutrophils # (1.80-7.70) 10*3/uL ABG pH 7.54 H (7.35-7.45) ABG HCO3 35 H (21-25) mmol/L ABG Total CO2 36 H (19-24) mmol/L ABG O2 Saturation 97.4 H (94-97) % Hemoglobin 10.7 L (13.0-17.5) gm/dL Potassium (3.5-5.1) mmol/L Carbon Dioxide (22-30) mmol/L Glucose (74-99) mg/dL POC Glucose (mg/dL) 197 H 209 H (70-110) mg/dL Calcium (8.4-10.2) mg/dL 01/06/25 01/06/25 01/06/25 Range/Units 05:36 05:36 11:52 WBC 20.77 H (4.50-10.00) 10*3/uL RBC 3.40 L (4.40-5.60) 10*6/uL Hgb 10.3 L (13.0-17.0) g/dL Hct 31.4 L (39.6-50.0) % Immature Gran # 0.11 H (0.00-0.04) 10*3/uL Neutrophils # 17.74 H (1.80-7.70) 10*3/uL ABG pH (7.35-7.45) ABG HCO3 (21-25) mmol/L ABG Total CO2 (19-24) mmol/L ABG O2 Saturation (94-97) % Hemoglobin (13.0-17.5) gm/dL Potassium 2.8 L (3.5-5.1) mmol/L Carbon Dioxide 32 H (22-30) mmol/L Glucose 147 H (74-99) mg/dL POC Glucose (mg/dL) 205 H (70-110) mg/dL Calcium 7.8 L (8.4-10.2) mg/dL Microbiology - Last 24 Hours (Table) 01/04/25 12:04 Stool Culture - Preliminary Stool 01/02/25 16:07 Blood Culture - Preliminary Blood Assessment and Plan (1) Sepsis Current Visit: Yes Status: Acute Code(s): A41.9 - SEPSIS, UNSPECIFIED ORGANISM SNOMED Code(s): 50579899 (2) Aspiration pneumonitis Current Visit: Yes Status: Acute Code(s): J69.0 - PNEUMONITIS DUE TO INHALATION OF FOOD AND VOMIT SNOMED Code(s): 223168551 (3) Colitis Current Visit: Yes Status: Acute Code(s): K52.9 - NONINFECTIVE LUIS ROENTERITIS AND COLITIS, UNSPECIFIED SNOMED Code(s): 66875649 (4) Cholecystitis Current Visit: Yes Status: Acute Code(s): K81.9 - CHOLECYSTITIS, UNSPECIFIED SNOMED Code(s): 77528454 Plan: 1patient presented to hospital with sepsis in this patient who did have tachycardia hypotension elevated white count meeting criteria for SIRS source likely aspiration pneumonitis as the patient did have intractable nausea vomiti ng before the patient has been brought to the hospital patient also have abnormality on the abdominal pelvis CT concerning for colitis question of infectious etiology need to be ruled out patient did not recall if he has been on antibiotic in the recent past 2-sputum cultures collected on 12/31/2024 reported as yeast 3-patient CT as well as ultrasound has been suspicious for cholecystitis HIDA scan has been suspicious for chronic cholecystitis General Surgery following the patient 4patient did have a cardiac arrest this is related and intubated in the ICU hypotension, patient did have a negative MRSA nasal screen repeat cultures so far negative 5patient is afebrile white count is slightly up today compared to yesterday but no fever or worsening clinical patient did have significant diarrhea stool for C. difficile PCR is negative we will continue with the [employer] [employer] Dictation was produced using i[employer] dictation software. please excuse any grammatical, word or spelling errors. Time with Patient: Less than 30
[2025-01-06] MEDS: INSULIN LISPRO (HumaLOG) 100 UNIT/ML 10 mL VL SQ SCH (16:41)
[2025-01-06 16:42] LABS: Glucose,Whole Blood 208 mg/dL (70-110)
--- NOTE | 2025-01-06 16:50 | P.PN ---
Subjective Progress Note Date: 01/06/25 Cardiopulmonary arrest. This is a 44-year-old white male brought into the emergency room earlier this mo rning by EMS with altered mental status and seizure-like activity. Apparently the patient is known to have past medical history of alcohol use, chronic pancreatitis, pancreatic pseudocyst, history of hypertension, previous history of TIA, patient had a sudden feeling of dizziness, and asked his roommate to call EMS. Apparently upon arrival of EMS he was found to have seizure-like activity and went unresponsive on the monitor the patient was noted to have ventricular tachycardia, CPR was started and the patient received 1 shock. Patient became conscious again, and his rhythm came back with return of circulation. Apparently for the last few days the patient has been experiencing episodes of nausea and vomiting and episodes of low blood sugar. In addition, patient has been complaining of episodes of diarrhea for the last 2 weeks. Patient normally follows up at [facility] for his pancreatitis and pseudocyst. He is also known to have history of splenic vein thrombosis, maint ained on anticoagulation. And has been taking Eliquis until yesterday. Patient drinks occasionally at this point, used to be a heavy drinker in the past. I evaluated the patient in the ER, and considering his cardiac arrest history, I recommended admitting the patient to the ICU, and he is to be seen by other consultants including cardiology. During my evaluation the patient was not in any distress, he was hemodynamically stable, all his labs were reviewed. Patient was seen today on 12/25/2024, remains in the ICU mostly because of his profound electrolyte abnormalities including hypocalcemia, hypomagnesium , hypokalemia, these are all being addressed accordingly mostly related to his GI symptoms and his pancreatitis. As well as diarrhea and nausea and vomiting. Patient is not in any distress, he is on 2 L nasal cannula, has been receiving potassium almost every 2 hours 20 mEq orally remains empirically on Zosyn, continues to have some vague abdominal pain and discomfort. WBC count today is 12.2 hemoglobin 9.5 electrolytes showed low sodium of 131 low potassium 2.9 but few hours later it was up to 3.8 renal functioning is normal calcium is up to 5.8 today. Add magnesium is up to 2.1, these are all being addressed daily. Cardiac sheppard the patient is in sinus rhythm, no further episodes of tachyarrhythmia. Seen today on 12/26/2024, patient remains in the ICU, feeling better, he has no active pulmonary symptoms no GI symptoms and no cardiac symptoms. Labs have shown significant improvement his potassium today is 4.5 calcium is up to 6 however his albumin is 1.9 which makes his corrected calcium 7.68., Improved, but not up to 8.4 or higher. Hence would recommend more calcium gluconate to be given for this patient. Magnesium not done today however was 2.1 yesterday. Seen today on 12/27/2024, patient is doing well, asymptomatic. Has some vague abdominal pain no cough no wheezing no shortness of breath no chest pain. No palpitations CBC showed leukocytosis WBC count of 15.9 hemoglobin 8.8. His electrolytes are normal potassium is 3.8 calcium is up to 6.8/uncorrected to albumin. 01/02/25 - He was seen and examined in the ICU, room 258. He was previously seen by pulmonary/critical care up until 12/27/2024, at which time we signed off care. Since that time, on 12/30/2024 he underwent a cardiac catheterization with Dr. Rosario which revealed normal coronary arteries, cardiomyopathy of nonischemic etiology. He was being followed by infectious disease due to possible colitis, and had been placed on antibiotics, general surgery for exploratory laparotomy in regards to cholecystitis and colitis. Late in the evening on 01/01/2025 a CODE BLUE was called in which the patient had diminished breath sounds and was tachypneic. He became bradycardic and then went asystole, at which time CPR was initiated. CODE BLUE as per the event note in the patient's chart. ROSC was achieved with 2 rounds of epinephrine. At that time patient was intubated, transferred to the ICU and initiated on a bicarb drip. He was noted to have pneumothorax of the left lung. He was intubated on 01/01/2025 and has not been mechanically ventilated with a tidal volume 400, respiratory rate 22, FiO2 100% and PEEP of 10. Most recent blood gas showed pO2 66, pCO2 45 and pH 7.37. Most recent labs showed WBCs 27.2, hemoglobin 6.9, hematocrit 21.8, platelet 339; sodium 141, potassium 2.6, bicarb 20, BUN <2, creatinine 0.48, lactic acid 11.7, calcium 5.6, ionized calcium 3.4, magnesium 1.2, total bilirubin 1.2, AST 99, ALT 29, alkaline phosphatase 183, TSH 0.551. He is currently receiving norepinephrine 0.39 mcg/kg/min, and sedated with fentanyl at 1 mcg/kg/h, propofol at 50 mcg/kg/h, and received an additional 10 mg of Nimbex prior to left radial arterial line placement. He continues receiving vancomycin, Zosyn, Flagyl and Diflucan. Progress note dated January 03, 2025. This is a 44-year-old male seen in room 258. He remains on mechanical ventilator. He is on volume assist-control, rate 22, tidal volume 400, FiO2 70%, PEEP of 10. Blood gases show pO2 123, pCO2 50, pH of 7.46. He has a left Thora vent in place. He is on fentanyl at 1.5 mcg/kg/h, D5W with 3 ampoules of sodium bicarbonate at 150 cc an hour, propofol at 50 mcg/kg/min, saline at 30 cc an hour, norepinephrine at 6 mcg/min, and vasopressin at 0.03 units/min. Sodium bicarbonate drip can be discontinued. The patient is currently also on fluconazole, Flagyl, vancomycin, and Zosyn. Current labs include a white count of 19.7, hemoglobin 8.3, hematocrit 25, and platelet count 304,000. Sodium 134, potassium 2.9, chloride 94, CO2 35, BUN 2, creatinine 0.63. Calcium is 5.3, and ionized calcium is low at 3.4. Albumin is 1.4. Cultures thus far are negative, save for the sputum showing evidence of yeast. Chest x-ray shows the left lung to be expanded, with a very tiny pneumothorax. There is diffuse changes throughout, largely unchanged. Progress note dated January 04, 2025. 44-year-old male seen today in room 258. He continues on volume assist-control, rate 22, tidal volume 400, 60% FiO2, PEEP of 10. Blood gases show pO2 of 93, pCO2 50, pH of 7.49. Is currently on propofol at 40 mcg/kg/min, vasopressin at 0.02 units/min, saline at 40 cc an hour, and tube feedings, at 21 cc an hour, which is goal. He continues on Diflucan, Flagyl, and Zosyn. White count is 23.2, hemoglobin 9, hematocrit 26.7, and platelet count is 319,000. Sodium 134, potassium 3.8, chloride 92, CO2 37, BUN is 5, with creatinine 0.79. Glucose 196. Calcium 6.5. Magnesium 1.6. Tiny apical left pneumothorax. Thora vent device is still noted. On 01/05/2025, the patient is being seen for a follow-up. This morning, the patient remains intubated on a mechanical ventilator. The patient is on propo fol running at 40 mcg/kg/min. Earlier this morning, the patient was noted to be slightly hypotensive and started on norepinephrine which is currently running at low-dose of 0.01 mcg/kg/min. Nevertheless, the dose needs to be adjusted as the patient continues to have and run a low blood pressure. He remains on the mechanical ventilator assist-control mode rate of 22, tidal volume of 400, FiO2 50% with a PEEP of 10. Fluid balance is -2.1 L over the past 24 hours. His cardiac rhythm is sinus. He is covered with broad-spectrum antibiotics and the patient is currently on a combination of Zosyn and Flagyl and Diflucan and he remains on IV Lasix. He is also on tube feeds and the patient is using [employer] 1.4 at a rate of 21 cc an hour. The blood work from today shows a WBC count of 17.8 with a hemoglobin of 9.8 and a platelet count of 272. Blood gas showed a pH of 7.53 with a [id number] and PO2 of 191. BUN is 10 with a creatinine of 1.03 and electrolytes show a sodium level of 135, serum bicarb is at 37. No other significant events overnight. As stated earlier, the patient has non ischemic cardiomyopathy. A outpatient cardiac arrest related to V. tach and another cardiac arrest on 01/02/2025 with development of acute pulmonary edema. During the resuscitation and post CPR, he also developed a left-sided pneumothorax. Chest x-ray from today shows ongoing pulmonary edema. Pne umothorax has recovered. No evidence of any air leak and the patient has a Thora vent over the left anterior chest. On 01/06/2025, the patient is being seen for a follow-up. This morning, the breann ent remains intubated on the mechanical ventilator. He is on propofol which was at 40 mcg and this was dropped down to 30 mcg/kg/min. The patient is currently off pressors. IV fluids are currently at KVO and the fluid balance is -2.1 L over the past 24 hours and the patient received Lasix 40 mg IV every 12 hours. The patient is on assist-control mode of mechanical ventilation at rate of 22, tidal volume of 400, FiO2 40% with a PEEP of 8. Blood gas showed a pH of 7.54 with a [id number] and PO2 of 87. The follow-up chest x-ray from today is showing minimal left apical pneumothorax, Thora vent is still in place. Multiple lines and catheters are still in place and the patient has a left lower lobe pulmonary infiltrate. Findings are essentially stable compared to yesterday. Rest of the labs show a white cell count of 20 with a hemoglobin of 10.3 and a platelet count of 282. The blood gas showed a pH of 7.54 with a PCO2 of 41 and PO2 of 87. Sodium level is at 139 with a potassium level of 4.6, BUN 16 with a creatinine of 1.1. Calcium levels at 7.8. Stool for C. difficile has been negative. The patient is currently on Zosyn and Diflucan. Norepinephrine has been discontinued and the patient remains on IV Lasix with excellent urine output. A sedation holiday is to be given today. The Thora vent is to be capped. Objective - Vital Signs Vital signs: Vital Signs Temp 98.6 F 01/06/25 04:00 Pulse 100 01/06/25 08:31 Resp 22 01/06/25 07:00 BP 102/79 01/05/25 19:00 Pulse Ox 93 L 01/06/25 07:00 FiO2 40 01/06/25 08:13 Intake & Output 01/05/25 01/06/25 01/06/25 18:59 06:59 18:59 Intake Total 8844.280 5079.998 73 Output Total 1281 725 30 Balance -187.909 575.998 43 Weight 66.1 kg 65.8 kg Intake: IV 769 323 33 .9NS KVO 330 290 30 .9NS Pressure Bag 39 33 3 Piperacillin-Tazobactam 3 200 .375 gm In Sodium Chloride 0.9% 100 ml @ 25 mls/hr IVPB Q8HR [facility] Rx# :[id number] metroNIDAZOLE-NS PMX 500 200 mg In Saline 1 100ml.bag @ 100 mls/hr IVPB Q8HR [facility] Rx#:[id number] Intake, IV Titration 199.091 407.998 Amount Norepinephrine 8 mg In 35.235 31.177 Sodium Chloride 0.9% 250 ml @ 0.03 MCG/KG/MIN 3. 291 mls/hr IV .Q24H [facility] Rx#:[id number] Piperacillin-Tazobactam 3 100 .375 gm In Sodium Chloride 0.9% 100 ml @ 25 mls/hr IVPB Q8HR [facility] Rx# :[id number] metroNIDAZOLE-NS PMX 500 100 mg In Saline 1 100ml.bag @ 100 mls/hr IVPB Q8HR [facility] Rx#:[id number] propofoL 1,000 mg In 163.856 176.821 Empty Bag 1 bag @ 15 MCG/ KG/MIN 4.788 mls/hr IV . [id number] [facility] Rx#:[id number] Tube Feeding 125 480 40 Other 90 Output: Chest Tube Drainage 36 Thora-Vent Left Anterior 36 Chest Urine 1245 725 30 Other: Voiding Method Indwelling Catheter Indwelling Catheter # Bowel Movements 1 ABP, PAP, CO, CI - Last Documented Arterial Blood Pressure 91/66 - Exam No acute distress, sedated, with an orally placed endotracheal tube. Sedated and the patient is calm comfortable. The patient is currently on propofol HEENT examination is grossly unremarkable. Mucous membranes are moist. No oral lesions. Neck supple. Full range of motion. No adenopathy thyromegaly or neck vein distention. Cardiovascular examination reveals regular rhythm rate. S1-S2 normal. No S3 or S4. No discernible murmur noted. Heart sounds are distant. The patient is currently wearing a LifeVest. Lungs reveal scattered bilateral mild to moderate rhonchorous breath sounds. No wheezes. No crackles. Breath sounds equal bilaterally. The patient has a Thora vent over the left anterior chest area. Breath sounds are equal and symmetrical bilaterally. Abdomen soft without bowel sounds. No masses or tenderness. Extremities are intact. No cyanosis clubbing and there is trace edema lower extremities bilaterally and some in the upper extremities. Skin is without rash or lesion. Neurologic examination cannot be evaluated at this time. The patient is sedated and the patient is calm and comfortable secondary to the mechanical ventilator. - Labs CBC & Chem 7: 01/06/25 05:36 01/06/25 12:40 Labs: Abnormal Lab Results - Last 24 Hours (Table) 01/05/25 01/05/25 01/06/25 Range/Units 11:23 17:32 01:24 WBC (4.50-10.00) 10*3/uL RBC (4.40-5.60) 10*6/uL Hgb (13.0-17.0) g/dL Hct (39.6-50.0) % Immature Gran # (0.00-0.04) 10*3/uL Neutrophils # (1.80-7.70) 10*3/uL ABG pH (7.35-7.45) ABG HCO3 (21-25) mmol/L ABG Total CO2 (19-24) mmol/L ABG O2 Saturation (94-97) % Hemoglobin (13.0-17.5) gm/dL Potassium (3.5-5.1) mmol/L Carbon Dioxide (22-30) mmol/L Glucose (74-99) mg/dL POC Glucose (mg/dL) 155 H 197 H 209 H (70-110) mg/dL Calcium (8.4-10.2) mg/dL 01/06/25 01/06/25 01/06/25 Range/Units 05:31 05:36 05:36 WBC 20.77 H (4.50-10.00) 10*3/uL RBC 3.40 L (4.40-5.60) 10*6/uL Hgb 10.3 L (13.0-17.0) g/dL Hct 31.4 L (39.6-50.0) % Immature Gran # 0.11 H (0.00-0.04) 10*3/uL Neutrophils # 17.74 H (1.80-7.70) 10*3/uL ABG pH 7.54 H (7.35-7.45) ABG HCO3 35 H (21-25) mmol/L ABG Total CO2 36 H (19-24) mmol/L ABG O2 Saturation 97.4 H (94-97) % Hemoglobin 10.7 L (13.0-17.5) gm/dL Potassium 2.8 L (3.5-5.1) mmol/L Carbon Dioxide 32 H (22-30) mmol/L Glucose 147 H (74-99) mg/dL POC Glucose (mg/dL) (70-110) mg/dL Calcium 7.8 L (8.4-10.2) mg/dL Microbiology - Last 24 Hours (Table) 01/04/25 12:04 Stool Culture - Preliminary Stool 01/02/25 16:07 Blood Culture - Preliminary Blood 01/02/25 23:45 Gram Stain - Final Sputum Sputum Culture - Final Assessment and Plan Plan: [id number] cardiac arrest likely from V. tach. Repeat cardiac arrest likely from V. tach on 01/02/2025. The patient is hypotensive, probably cardiogenic in nature and the patient is not on low-dose norepinephrine. Chest x-ray still showing a component of pulmonary edema. Cardiac rhythm is sinus. The patient is currently hemodynamically stable and the patient is currently off pressors. Patient is also on diuresis with IV Lasix and the patient remains in negative fluid balance. Patient is also on oral amiodarone 200 mg p.o. daily. Beta-blockers are also initiated and the patient is on metoprolol 12.5 mg p.o. twice a day. Hypotension, likely cardiogenic in nature and the patient is currently off pressors Cardiomyopathy, EF 20 to 25%, nonischemic, possible Takotsubo, repeat echo 30- 35% Acute pulmonary edema with secondary acute hypoxic respiratory failure and subsequent V. tach induced cardiac arrest Acute hypoxic respiratory failure, remains intubated on mechanical ventilator, multifactorial. This occurred secondary to CHF and pulmonary edema subsequently patient developed a left-sided pneumothorax treated with a Thora vent. Left pneumothorax, S/P Thora vent placement. No evidence of any air leak in the Thora vent is attached to a Pleur-evac and no evidence of any residual pneumothorax. No evidence of any air leak. History of chronic pancreatitis. Hyperammonemia, improved and the repeat ammonia level is down to 10 chronic alcohol abuse and alcoholic liver disease History of splenic vein thrombosis. History of syncope. History of chronic diarrhea. Lactic acidosis. Hypocalcemia, treated Hypomagnesemia, treated Plan: Continue ventilator support. The patient will have the PEEP dropped down to 6. Keep the patient sedated on propofol Norepinephrine has been discontinued Amiodarone 200 mg p.o. daily metoprolol 12.5 mg p.o. twice a day Continue IV Lasix Cardiac rhythm is sinus Electrolytes have improved Continue enteral feeding for additional support Continue broad-spectrum antibiotics and the patient is currently combination of Zosyn Flagyl and Diflucan The Thora vent is to be capped and possibly removed if there is no evidence of pneumothorax in the next 24 hours. Not ready for any weaning at this point. Sedation holiday and assess patient's mental status Continue enteral feeding for nutritional support and the patient is currently receiving [employer] at a rate of 40 cc an hour Will continue to monitor the progress and make further recommendations based on his condition. This evaluation was done in 33 minutes. Time with Patient: Greater than 30
[2025-01-06 23:21] LABS: Glucose,Whole Blood 182 mg/dL (70-110)
[2025-01-07 04:56] LABS: ABG HCO3 31 mmol/L (21-25); ABG PCO2 38 mmHg (35-45); ABG PH 7.52 (7.35-7.45); ABG PO2 87 mmHg (83-108); ABG TCO2 33 mmol/L (19-24)
[2025-01-07 04:58] LABS: Allen Test Performed? no
--- NOTE | 2025-01-07 05:31 | P.PN ---
Subjective Progress Note Date: 01/06/25 This is a pleasant 44-year-old male who was recently admitted after brief cardiac arrest with multiple electrolyte abnormalities being closely monitored. Patient being followed by cardiology and is status post cardiac catheterization recommending maximizing medical management and normal coronary arteries noted. Patient reports to having increasing pain and also generalized weakness although reports will be going home on discharge. Patient did have an elevated white count that had been trending down although is slightly up today with infectious disease following and will repeat CT abdomen for further evaluation. Continue current antibiotics at this time. Case management is following as plan is for LifeVest on discharge. Recommend incentive spirometer as patient is requiring oxygen and may require oxygen on discharge. Will reattempt home oxygen evaluation. Encourage increase activity as tolerated with sitting up out of the bed more frequently. Labs reviewed and white count is 25.52, hemoglobin is 8.8, platelets 446, sodium 137 with a potassium of 3.5, BUN is 5 and creatinine 0.33. Calcium is slightly low at 6.2, total bili is 1.4. 12/31/2024 Patient is seen in follow-up with multiple consultations following. White count was elevated although slightly improving with infectious disease following we will continue current regimen at this time. Patient continues to report short ness of breath and generalized pain and continues to require oxygen. Will need home O2 assessment. Patient underwent CT abdomen and will consult general surgery for evaluation. Encouraged increased activity as tolerated with sitting up more frequently in the chair. 01/01/2025 Patient seen and evaluated this morning currently scheduled to undergo HIDA scan per general surgery and patient is currently requesting increase in pain medications as she reports diffuse pain. Pain medications through the IV are currently on hold as patient will be undergoing HIDA scan. Patient's white count is elevated with infectious disease following maintained on Zosyn and will continue. Patient is afebrile with no reports of chest pain or palpitations. Patient is reporting some congestion and occasional shortness of breath. Will order chest x-ray as well. Continue DuoNeb treatments and supplemental oxygen as needed. Patient currently maintained on 5 L. Would recommend PT/OT therapy evaluation as patient has had prolonged cough elevation and appears frail and extremely weak. 01/02/2025 Patient is seen in follow-up was a CODE BLUE on 3 S. and was transferred to ICU intubated for respiratory arrest with cardiac arrest and ROSC received. Patient remains a full code per sister and will continue on mechanical ventilation with an FiO2 of 100% and PEEP of 10 currently. Blood pressures are soft and patient is maintained on pressor support and hemoglobin was noted to be 6.9 this morning and will give 1 unit of PRBC. White count remains elevated at 24.18 and maintained on antibiotics with infectious disease following. Sodium is 141 with a potassium of 3.0, creatinine 0.48, blood sugars elevated, lactic acid 5.1 with a calcium that is low at 5.6, magnesium 1.2. Prognosis remains extremely guarded and CODE STATUS needs to be addressed again. 01/03/2025 Patient is seen in follow-up in the ICU maintained on mechanical ventilation and FiO2 was adjusted per pulmonary single resource boss but FiO2 is currently 60%. Patient maintained on pressor support including Levophed and vasopressin and also receiving Lasix. Blood sugars have been elevated and will adjust insulins accordingly including increasing long-acting. Patient is continued on tube feeds and will continue at this time. Per nursing staff patient did require Chris hugger for some time for hypothermia. Hemoglobin is stable at 8.3 status post 1 unit of PRBC, white count remains elevated at 19.68, sodium is 134 and potassium was again 2.9 with replacement of 3.5 and continued on protocol creatinine is stable at 0.63. Preliminary sputum culture from 12/31/2024 showing yeast species. 01/04/2025 Patient is seen in follow-up continues to be in the ICU on mechanical ventilation with multiple consultations following. FiO2 is 60% and patient is continued on low-dose pressor and support, Levophed has been discontinued and p atient has been weaned off fentanyl and patient is not on Versed at this time. Patient continues on sedation with propofol and per nursing staff will undergo sedation trials to assess mentation. Patient is continued on antibiotics and will continue with infectious disease following. Blood sugars have been on the lower side and tube feedings have been started and tolerating thus far working on goal and will discontinue long-acting insulin and monitor closely with just Accu-Cheks and sliding scale for now. Prognosis remains extremely guarded and patient remains full code per family at this time. White count remains elevated at 23.15, hemoglobin is stable at 9.0 with no active bleeding noted, platelets are 319, sodium is 134 with a potassium of 3.8, BUN is 5 and creatinine is 0.79. Magnesium is 1.6 and receiving replacement. 01/05/2025 Patient is seen in follow-up today maintained on mechanical ventilation with no plans of weaning today continues on low-dose Levophed and other pressor support being weaned. Per nursing staff patient's blood pressures were extremely low overnight requiring reinitiation of the Levophed which is currently being weaned as tolerated. Patient is maintained on mechanical ventilation with an FiO2 of 40% PEEP is at 10. Patient remains full code and will attempt to contact family to discuss treatment plan and overall prognosis. Patient continues with Pleurx catheter in the left chest wall with no leak noted recommending to continue for another 24 hours as there was a noted tiny pneumothorax on the left on imaging. Per nursing staff patient is experiencing a mild rectal prolapse and would recommend keeping the area moist and lubricated as much as possible. Patient continues to have loose stools and is maintained on antibiotics with infectious disease following. 01/06/2025 Patient is seen in follow-up continues in the ICU on mechanical ventilation with an FiO2 of 40% PEEP is being adjusted to 6 per pulmonary single resource boss cleared no plans of weaning at this time recommending initiating small sedation trials to assess mentation. Patient has been weaned off pressor support with medications being adjusted and cardiology following. Patient continues with Thora vent on the left and per single resource boss will be capped with possible removal in the next 24 hours as chest x-ray reveals a tiny pneumothorax that is stable. Patient continues on IV Lasix and will continue as patient is extremely edematous in upper and lower extremities. Patient continues on IV antibiotics in the form of Zosyn and Flagyl and also Diflucan and will continue with infectious disease following. Repeat cultures are pending at this time and patient remains afeb rile. Review of systems: Unable to assess as patient is intubated and sedated All medications have been reviewed PHYSICAL EXAMINATION: GENERAL: The patient is alert and oriented x0, continued on mechanical vent with an FiO2 of 40 % and PEEP is 6. Well developed, elderly appearing, thin built, cachectic, chronically ill-appearing HEENT: Pupils are round and equally reacting to light. EOMI. no scleral icterus. No conjunctival pallor. Normocephalic, atraumatic. No pharyngeal erythema. No thyromegaly. CARDIOVASCULAR: S1 and S2 muffled PULMONARY: diminished breath sounds bilaterally with no wheezing, scattered coarse rhonchi noted with upper bronchial congestion. Crackles noted at the bases, left chest wall Thora vent noted that is capped ABDOMEN: soft. Nontender on exam. Thin non-distended, normoactive bowel sounds. No palpable organomegaly. MUSCULOSKELETAL: No joint swelling or deformity. EXTREMITIES: No cyanosis, clubbing, or pedal edema. NEUROLOGICAL: Gross neurological examination did not reveal any focal deficits. Unable to completely assess as patient is sedated and on mechanical ventilation SKIN: No rashes. Extremely pale Assessment: Cardiac arrest, possibly secondary to ventricular tachycardia secondary to multiple electrolyte abnormalities Respiratory arrest with cardiac arrest requiring mechanical ventilation 01/01/2025 likely secondary to V. tach Severe hypokalemia, hypomagnesemia, hypocalcemia, improving after replacement, continue to monitor closely History of EtOH Nonischemic cardiomyopathy possible Takotsubo, EF was 20 to 25%, repeat is 30-35, continued on LifeVest Possible acute colitis as noted on imaging Diabetes mellitus, type II, uncontrolled with hyperglycemia History of pancreatitis Tachycardia Anemia, chronic, hemoglobin was 6.9 today and transfused 1 unit of PRBC 01/02/2025, improved Concerns of possible right lower lobe pneumonia, possibly aspiration History of splenic vein thrombosis, was on Eliquis Hepatic encephalopathy Moderate protein calorie malnutrition with a BMI of 17.7 GI prophylaxis DVT prophylaxis Full code Plan: Recommend to continue with current medications and management with multiple consultations following. Patient remains in the ICU on mechanical ventilation and FiO2 is 40% and PEEP is being adjusted to 6 per pulmonary single resource boss. Undergoing sedation trials with no plans of weaning at this time. Patient had respiratory arrest with cardiac arrest on 01/01/2025 and was placed on mechanical ventilation. Pressor supports have been placed on hold and weaned off Levophed infectious disease following as white count remains elevated and patient is maintained on antibiotics and will continue. General surgery following as there was concern of cholecystitis with discussion of possible surgical intervention although no plans for intervention at this time Cardiology following and patient is status post catheterization recommending maximizing medical management and case management following and has received LifeVest. Patient does currently have LifeVest on Continue monitoring Accu-Cheks AC and at bedtime and adjust accordingly. Blood sugars have been on the lower side and will hold long-acting and continue with just sliding scale for now Follow-up on repeat labs and replace electrolytes per protocol. Replace potassium and magnesium per protocol Per nursing staff sister reports patient is full code and to remain full code per family. CODE STATUS needs to be readdressed and overall prognosis is extremely poor and guarded at this time The impression and plan of care has been dictated by Ana Duggan, Nurse Practitioner as directed. Dr. Koby MD I have performed a history and examination and MDM of this patient, discussed the same with the dictator, and agree with the dictator's assessment and plan as written ,documented as a scribe. Based on total visit time, I have performed more than 50% of the visit. Objective - Vital Signs Vital signs: Vital Signs Temp 98.2 F 01/07/25 04:00 Pulse 116 H 01/07/25 05:00 Resp 25 H 01/07/25 05:00 BP 104/81 01/07/25 05:00 Pulse Ox 96 01/07/25 05:00 FiO2 40 01/07/25 04:50 Intake & Output 01/06/25 01/06/25 01/07/25 06:59 18:59 06:59 Intake Total 8165.610 8134.322 991.577 Output Total 725 685 260 Balance 575.998 796.322 731.577 Weight 65.8 kg Intake: IV 323 683 403 .9NS KVO 290 250 270 .9NS Pressure Bag 33 33 33 Piperacillin-Tazobactam 3 200 100 .375 gm In Sodium Chloride 0.9% 100 ml @ 25 mls/hr IVPB Q8HR VLAD Rx# :[id number] Potassium Chloride 20 meq 100 In Water For Injection 1 100ml.bag @ 50 mls/hr IVPB Q2H VLAD Rx#: [id number] metroNIDAZOLE-NS PMX 500 100 mg In Saline 1 100ml.bag @ 100 mls/hr IVPB Q8HR VLAD Rx#:[id number] Intake, IV Titration 407.998 148.322 18.577 Amount Norepinephrine 8 mg In 31.177 0.914 Sodium Chloride 0.9% 250 ml @ 0.03 MCG/KG/MIN 3. 291 mls/hr IV .Q24H VLAD Rx#:[id number] Piperacillin-Tazobactam 3 100 .375 gm In Sodium Chloride 0.9% 100 ml @ 25 mls/hr IVPB Q8HR VLAD Rx# :[id number] metroNIDAZOLE-NS PMX 500 100 mg In Saline 1 100ml.bag @ 100 mls/hr IVPB Q8HR VLAD Rx#:[id number] propofoL 1,000 mg In 176.821 148.322 17.663 Empty Bag 1 bag @ 15 MCG/ KG/MIN 4.788 mls/hr IV . [id number] VLAD Rx#:[id number] Tube Feeding 480 560 480 Other 90 90 90 Output: Urine 725 685 260 Other: Voiding Method Indwelling Catheter Indwelling Catheter Indwelling Catheter # Bowel Movements 1 1 1 ABP, PAP, CO, CI - Last Documented Arterial Blood Pressure 114/83 - Labs CBC & Chem 7: 01/06/25 05:36 01/06/25 12:40 Labs: Abnormal Lab Results - Last 24 Hours (Table) 01/06/25 01/06/25 01/06/25 Range/Units 05:31 05:36 05:36 WBC 20.77 H (4.50-10.00) 10*3/uL RBC 3.40 L (4.40-5.60) 10*6/uL Hgb 10.3 L (13.0-17.0) g/dL Hct 31.4 L (39.6-50.0) % Immature Gran # 0.11 H (0.00-0.04) 10*3/uL Neutrophils # 17.74 H (1.80-7.70) 10*3/uL ABG pH 7.54 H (7.35-7.45) ABG HCO3 35 H (21-25) mmol/L ABG Total CO2 36 H (19-24) mmol/L ABG O2 Saturation 97.4 H (94-97) % Hemoglobin 10.7 L (13.0-17.5) gm/dL Potassium 2.8 L (3.5-5.1) mmol/L Carbon Dioxide 32 H (22-30) mmol/L Glucose 147 H (74-99) mg/dL POC Glucose (mg/dL) (70-110) mg/dL Calcium 7.8 L (8.4-10.2) mg/dL 01/06/25 01/06/25 01/06/25 Range/Units 11:52 16:41 23:19 WBC (4.50-10.00) 10*3/uL RBC (4.40-5.60) 10*6/uL Hgb (13.0-17.0) g/dL Hct (39.6-50.0) % Immature Gran # (0.00-0.04) 10*3/uL Neutrophils # (1.80-7.70) 10*3/uL ABG pH (7.35-7.45) ABG HCO3 (21-25) mmol/L ABG Total CO2 (19-24) mmol/L ABG O2 Saturation (94-97) % Hemoglobin (13.0-17.5) gm/dL Potassium (3.5-5.1) mmol/L Carbon Dioxide (22-30) mmol/L Glucose (74-99) mg/dL POC Glucose (mg/dL) 205 H 208 H 182 H (70-110) mg/dL Calcium (8.4-10.2) mg/dL 01/07/25 Range/Units 04:53 WBC (4.50-10.00) 10*3/uL RBC (4.40-5.60) 10*6/uL Hgb (13.0-17.0) g/dL Hct (39.6-50.0) % Immature Gran # (0.00-0.04) 10*3/uL Neutrophils # (1.80-7.70) 10*3/uL ABG pH 7.52 H (7.35-7.45) ABG HCO3 31 H (21-25) mmol/L ABG Total CO2 33 H (19-24) mmol/L ABG O2 Saturation 97.4 H (94-97) % Hemoglobin 9.3 L (13.0-17.5) gm/dL Potassium (3.5-5.1) mmol/L Carbon Dioxide (22-30) mmol/L Glucose (74-99) mg/dL POC Glucose (mg/dL) (70-110) mg/dL Calcium (8.4-10.2) mg/dL Microbiology - Last 24 Hours (Table) 01/04/25 12:04 Stool Culture - Preliminary Stool 01/02/25 16:07 Blood Culture - Preliminary Blood
[2025-01-07 06:02] LABS: HCT 27.9 % (39.6-50.0); MCH 30.1 pg (27.0-32.0); MCHC 31.5 g/dL (32.0-37.0); MCV 95.5 fL (80.0-97.0); Platelet Count 252 10*3/uL (140-440); RBC 2.92 10*6/uL (4.40-5.60); RDW 21.8 % (11.5-14.5); WBC 26.27 10*3/uL (4.50-10.00)
[2025-01-07 06:11] LABS: HGB 8.8 g/dL (13.0-17.0)
[2025-01-07 06:16] LABS: ALT 16 U/L (4-49); AST 35 U/L (17-59); African American GFR (CKD) 81 (>60 ml/min/1.73 sqM); Albumin 1.7 g/dL (3.5-5.0); Alkaline Phosphatase 222 U/L (38-126); Anion Gap 9 mmol/L; Blood Urea Nitrogen 22 mg/dL (9-20); Calcium 7.7 mg/dL (8.4-10.2); Carbon Dioxide 27 mmol/L (22-30); Chloride 105 mmol/L (98-107); Glucose 188 mg/dL (74-99); Magnesium 1.7 mg/dL (1.6-2.3); Non-African American GFR(CKD) 70 (>60 ml/min/1.73 sqM); Potassium 3.1 mmol/L (3.5-5.1); Sodium 141 mmol/L (137-145); Total Protein 4.1 g/dL (6.3-8.2)
[2025-01-07 06:20] LABS: Glucose,Whole Blood 213 mg/dL (70-110)
[2025-01-07] MEDS: FUROSEMIDE 10 MG/ML 4 ML VIAL IV STA (06:23)
[2025-01-07] MEDS: MAGNESIUM SULFATE-D5W PMX 1 GM in DEXTROSE/WATER 1 100ML.BAG IVPB ONE (07:58)
[2025-01-07] MEDS: POTASSIUM BICARBONATE/CIT AC 20 MEQ TABLET.EFF NG-TUBE SCH (07:59)
[2025-01-07] MEDS: PANTOPRAZOLE 40 MG/10 ML VIAL IVP SCH (07:59)
--- NOTE | 2025-01-07 08:12 | XR ---
EXAMINATION TYPE: XR chest 1V portable DATE OF EXAM: 01/07/2025 6:03 AM COMPARISON: None. CLINICAL INDICATION: Male, 44 years old with history of mechanical ventilation, difficulty breathing. TECHNIQUE: XR chest 1V portable view(s) obtained. FINDINGS: The heart size is normal. The pulmonary vasculature is normal. There is silhouetting of the diaphragm which is an interval change. Correlate for pneumonia. Small ef fusion could be considered. Electronic devices overlie the chest Endotracheal tube tip is 7.3 cm above the yoli. Nasogastric tube transverses the thorax. Right cent ral venous catheter tip is in the superior vena cava region. Left-sided chest is present. No pneumoth orax is evident. A small amount subcutaneous emphysema is present. IMPRESSION: Left 1. Left lower lobe infiltrate and/or small effusion silhouetting the diaphragm. Correlate for pneumon ia. 2. Lines and catheters discussed above [facility] , 01/07/2025 8:10 AM
[2025-01-07] MEDS: POTASSIUM CHLORIDE 20 MEQ in WATER FOR INJECTION 1 100ML.BAG IVPB STA (08:32)
--- NOTE | 2025-01-07 10:49 | P.PN ---
Subjective Progress Note Date: 01/07/25 SURGICAL PROGRESS NOTE CHIEF COMPLAINT: Cardiac arrest HISTORY OF PRESENT ILLNESS: Patient in the ICU after another cardiac arrest on 01/01. He remains intubated and on mechanical ventilation. PHYSICAL EXAM: VITAL SIGNS: Reviewed. GENERAL: no acute distress. Intubated and on mechanical ventilation ABDOMEN: Soft. Nondistended. ASSESSMENT: 1. Chronic cholecystitis PLAN: - No surgical intervention planned - Surgical service will sign off. Please call with any questions or concerns Physician Color Tester note has been reviewed by physician. Signing provider agrees with the documented findings, assessment, and plan of care. Objective - Vital Signs Vital signs: Vital Signs Temp 99.9 F H 01/07/25 08:00 Pulse 126 H 01/07/25 08:00 Resp 22 01/07/25 08:00 BP 112/81 01/07/25 08:00 Pulse Ox 96 01/07/25 08:00 FiO2 40 01/07/25 10:01 Intake & Output 01/06/25 01/07/25 01/07/25 18:59 06:59 18:59 Intake Total 2970.455 4068.715 469 Output Total 685 265 250 Balance 796.322 899.715 219 Weight 61.7 kg Intake: IV 683 436 69 .9NS KVO 250 300 60 .9NS Pressure Bag 33 36 9 Piperacillin-Tazobactam 3 200 100 .375 gm In Sodium Chloride 0.9% 100 ml @ 25 mls/hr IVPB Q8HR VLAD Rx# :[id number] Potassium Chloride 20 meq 100 In Water For Injection 1 100ml.bag @ 50 mls/hr IVPB Q2H VLAD Rx#: [id number] metroNIDAZOLE-NS PMX 500 100 mg In Saline 1 100ml.bag @ 100 mls/hr IVPB Q8HR VLAD Rx#:[id number] Intake, IV Titration 148.322 118.715 200 Amount Magnesium Sulfate-D5w Pmx 100 1 gm In Dextrose/Water 1 100ml.bag @ 100 mls/hr IVPB ONCE ONE Rx#: [id number] Norepinephrine 8 mg In 18.928 Sodium Chloride 0.9% 250 ml @ 0.03 MCG/KG/MIN 3. 291 mls/hr IV .Q24H VLAD Rx#:[id number] Potassium Chloride 20 meq 100 In Water For Injection 1 100ml.bag @ 50 mls/hr IVPB Q2H VLAD Rx#: [id number] propofoL 1,000 mg In 148.322 99.787 Empty Bag 1 bag @ 15 MCG/ KG/MIN 4.788 mls/hr IV . [id number] VLAD Rx#:[id number] Tube Feeding 560 520 200 Other 90 90 Output: Urine 685 265 250 Other: Voiding Method Indwelling Catheter Indwelling Catheter Indwelling Catheter # Bowel Movements 1 1 1 ABP, PAP, CO, CI - Last Documented Arterial Blood Pressure 109/74 - Labs CBC & Chem 7: 01/07/25 04:00 01/07/25 04:00 Labs: Abnormal Lab Results - Last 24 Hours (Table) 01/06/25 01/06/25 01/06/25 Range/Units 11:52 16:41 23:19 WBC (4.50-10.00) 10*3/uL RBC (4.40-5.60) 10*6/uL Hgb (13.0-17.0) g/dL Hct (39.6-50.0) % MCHC (32.0-37.0) g/dL ABG pH (7.35-7.45) ABG HCO3 (21-25) mmol/L ABG Total CO2 (19-24) mmol/L ABG O2 Saturation (94-97) % Hemoglobin (13.0-17.5) gm/dL Potassium (3.5-5.1) mmol/L BUN (9-20) mg/dL Glucose (74-99) mg/dL POC Glucose (mg/dL) 205 H 208 H 182 H (70-110) mg/dL Calcium (8.4-10.2) mg/dL Total Bilirubin (0.2-1.3) mg/dL Alkaline Phosphatase (38-126) U/L Total Protein (6.3-8.2) g/dL Albumin (3.5-5.0) g/dL 01/07/25 01/07/25 01/07/25 Range/Units 04:00 04:00 04:53 WBC 26.27 H (4.50-10.00) 10*3/uL RBC 2.92 L (4.40-5.60) 10*6/uL Hgb 8.8 L D (13.0-17.0) g/dL Hct 27.9 L (39.6-50.0) % MCHC 31.5 L (32.0-37.0) g/dL ABG pH 7.52 H (7.35-7.45) ABG HCO3 31 H (21-25) mmol/L ABG Total CO2 33 H (19-24) mmol/L ABG O2 Saturation 97.4 H (94-97) % Hemoglobin 9.3 L (13.0-17.5) gm/dL Potassium 3.1 L (3.5-5.1) mmol/L BUN 22 H (9-20) mg/dL Glucose 188 H (74-99) mg/dL POC Glucose (mg/dL) (70-110) mg/dL Calcium 7.7 L (8.4-10.2) mg/dL Total Bilirubin 2.1 H (0.2-1.3) mg/dL Alkaline Phosphatase 222 H (38-126) U/L Total Protein 4.1 L (6.3-8.2) g/dL Albumin 1.7 L (3.5-5.0) g/dL 01/07/ Range/Units 06:19 WBC (4.50-10.00) 10*3/uL RBC (4.40-5.60) 10*6/uL Hgb (13.0-17.0) g/dL Hct (39.6-50.0) % MCHC (32.0-37.0) g/dL ABG pH (7.35-7.45) ABG HCO3 (21-25) mmol/L ABG Total CO2 (19-24) mmol/L ABG O2 Saturation (94-97) % Hemoglobin (13.0-17.5) gm/dL Potassium (3.5-5.1) mmol/L BUN (9-20) mg/dL Glucose (74-99) mg/dL POC Glucose (mg/dL) 213 H (70-110) mg/dL Calcium (8.4-10.2) mg/dL Total Bilirubin (0.2-1.3) mg/dL Alkaline Phosphatase (38-126) U/L Total Protein (6.3-8.2) g/dL Albumin (3.5-5.0) g/dL Microbiology - Last 24 Hours (Table) 01/04/25 12:04 Stool Culture - Preliminary Stool
[2025-01-07] MEDS: SODIUM CHLORIDE 0.9% 500 ML 500 ML IV ONE (11:08)
[2025-01-07 11:11] LABS: Glucose,Whole Blood 221 mg/dL (70-110)
[2025-01-07] MEDS ORDERED: SODIUM CHLORIDE 0.9% 500 ML 500 ML IV PRN (11:30)
[2025-01-07] MEDS: LACTATED RINGERS 500 ML IV ONE ×2 (12:00→14:49)
[2025-01-07 17:16] LABS: Glucose,Whole Blood 118 mg/dL (70-110)
--- NOTE | 2025-01-07 17:24 | P.PN ---
Subjective Progress Note Date: 01/07/25 Cardiopulmonary arrest. This is a 44-year-old white male brought into the emergency room earlier this mo rning by EMS with altered mental status and seizure-like activity. Apparently the patient is known to have past medical history of alcohol use, chronic pancreatitis, pancreatic pseudocyst, history of hypertension, previous history of TIA, patient had a sudden feeling of dizziness, and asked his roommate to call EMS. Apparently upon arrival of EMS he was found to have seizure-like activity and went unresponsive on the monitor the patient was noted to have ventricular tachycardia, CPR was started and the patient received 1 shock. Patient became conscious again, and his rhythm came back with return of circulation. Apparently for the last few days the patient has been experiencing episodes of nausea and vomiting and episodes of low blood sugar. In addition, patient has been complaining of episodes of diarrhea for the last 2 weeks. Patient normally follows up at [facility] for his pancreatitis and pseudocyst. He is also known to have history of splenic vein thrombosis, maint ained on anticoagulation. And has been taking Eliquis until yesterday. Patient drinks occasionally at this point, used to be a heavy drinker in the past. I evaluated the patient in the ER, and considering his cardiac arrest history, I recommended admitting the patient to the ICU, and he is to be seen by other consultants including cardiology. During my evaluation the patient was not in any distress, he was hemodynamically stable, all his labs were reviewed. Patient was seen today on 12/25/2024, remains in the ICU mostly because of his profound electrolyte abnormalities including hypocalcemia, hypomagnesium , hypokalemia, these are all being addressed accordingly mostly related to his GI symptoms and his pancreatitis. As well as diarrhea and nausea and vomiting. Patient is not in any distress, he is on 2 L nasal cannula, has been receiving potassium almost every 2 hours 20 mEq orally remains empirically on Zosyn, continues to have some vague abdominal pain and discomfort. WBC count today is 12.2 hemoglobin 9.5 electrolytes showed low sodium of 131 low potassium 2.9 but few hours later it was up to 3.8 renal functioning is normal calcium is up to 5.8 today. Add magnesium is up to 2.1, these are all being addressed daily. Cardiac sheppard the patient is in sinus rhythm, no further episodes of tachyarrhythmia. Seen today on 12/26/2024, patient remains in the ICU, feeling better, he has no active pulmonary symptoms no GI symptoms and no cardiac symptoms. Labs have shown significant improvement his potassium today is 4.5 calcium is up to 6 however his albumin is 1.9 which makes his corrected calcium 7.68., Improved, but not up to 8.4 or higher. Hence would recommend more calcium gluconate to be given for this patient. Magnesium not done today however was 2.1 yesterday. Seen today on 12/27/2024, patient is doing well, asymptomatic. Has some vague abdominal pain no cough no wheezing no shortness of breath no chest pain. No palpitations CBC showed leukocytosis WBC count of 15.9 hemoglobin 8.8. His electrolytes are normal potassium is 3.8 calcium is up to 6.8/uncorrected to albumin. 01/02/25 - He was seen and examined in the ICU, room 258. He was previously seen by pulmonary/critical care up until 12/27/2024, at which time we signed off care. Since that time, on 12/30/2024 he underwent a cardiac catheterization with Dr. Rosario which revealed normal coronary arteries, cardiomyopathy of nonischemic etiology. He was being followed by infectious disease due to possible colitis, and had been placed on antibiotics, general surgery for exploratory laparotomy in regards to cholecystitis and colitis. Late in the evening on 01/01/2025 a CODE BLUE was called in which the patient had diminished breath sounds and was tachypneic. He became bradycardic and then went asystole, at which time CPR was initiated. CODE BLUE as per the event note in the patient's chart. ROSC was achieved with 2 rounds of epinephrine. At that time patient was intubated, transferred to the ICU and initiated on a bicarb drip. He was noted to have pneumothorax of the left lung. He was intubated on 01/01/2025 and has not been mechanically ventilated with a tidal volume 400, respiratory rate 22, FiO2 100% and PEEP of 10. Most recent blood gas showed pO2 66, pCO2 45 and pH 7.37. Most recent labs showed WBCs 27.2, hemoglobin 6.9, hematocrit 21.8, platelet 339; sodium 141, potassium 2.6, bicarb 20, BUN <2, creatinine 0.48, lactic acid 11.7, calcium 5.6, ionized calcium 3.4, magnesium 1.2, total bilirubin 1.2, AST 99, ALT 29, alkaline phosphatase 183, TSH 0.551. He is currently receiving norepinephrine 0.39 mcg/kg/min, and sedated with fentanyl at 1 mcg/kg/h, propofol at 50 mcg/kg/h, and received an additional 10 mg of Nimbex prior to left radial arterial line placement. He continues receiving vancomycin, Zosyn, Flagyl and Diflucan. Progress note dated January 03, 2025. This is a 44-year-old male seen in room 258. He remains on mechanical ventilator. He is on volume assist-control, rate 22, tidal volume 400, FiO2 70%, PEEP of 10. Blood gases show pO2 123, pCO2 50, pH of 7.46. He has a left Thora vent in place. He is on fentanyl at 1.5 mcg/kg/h, D5W with 3 ampoules of sodium bicarbonate at 150 cc an hour, propofol at 50 mcg/kg/min, saline at 30 cc an hour, norepinephrine at 6 mcg/min, and vasopressin at 0.03 units/min. Sodium bicarbonate drip can be discontinued. The patient is currently also on fluconazole, Flagyl, vancomycin, and Zosyn. Current labs include a white count of 19.7, hemoglobin 8.3, hematocrit 25, and platelet count 304,000. Sodium 134, potassium 2.9, chloride 94, CO2 35, BUN 2, creatinine 0.63. Calcium is 5.3, and ionized calcium is low at 3.4. Albumin is 1.4. Cultures thus far are negative, save for the sputum showing evidence of yeast. Chest x-ray shows the left lung to be expanded, with a very tiny pneumothorax. There is diffuse changes throughout, largely unchanged. Progress note dated January 04, 2025. 44-year-old male seen today in room 258. He continues on volume assist-control, rate 22, tidal volume 400, 60% FiO2, PEEP of 10. Blood gases show pO2 of 93, pCO2 50, pH of 7.49. Is currently on propofol at 40 mcg/kg/min, vasopressin at 0.02 units/min, saline at 40 cc an hour, and tube feedings, at 21 cc an hour, which is goal. He continues on Diflucan, Flagyl, and Zosyn. White count is 23.2, hemoglobin 9, hematocrit 26.7, and platelet count is 319,000. Sodium 134, potassium 3.8, chloride 92, CO2 37, BUN is 5, with creatinine 0.79. Glucose 196. Calcium 6.5. Magnesium 1.6. Tiny apical left pneumothorax. Thora vent device is still noted. On 01/05/2025, the patient is being seen for a follow-up. This morning, the patient remains intubated on a mechanical ventilator. The patient is on propo fol running at 40 mcg/kg/min. Earlier this morning, the patient was noted to be slightly hypotensive and started on norepinephrine which is currently running at low-dose of 0.01 mcg/kg/min. Nevertheless, the dose needs to be adjusted as the patient continues to have and run a low blood pressure. He remains on the mechanical ventilator assist-control mode rate of 22, tidal volume of 400, FiO2 50% with a PEEP of 10. Fluid balance is -2.1 L over the past 24 hours. His cardiac rhythm is sinus. He is covered with broad-spectrum antibiotics and the patient is currently on a combination of Zosyn and Flagyl and Diflucan and he remains on IV Lasix. He is also on tube feeds and the patient is using [employer] 1.4 at a rate of 21 cc an hour. The blood work from today shows a WBC count of 17.8 with a hemoglobin of 9.8 and a platelet count of 272. Blood gas showed a pH of 7.53 with a [id number] and PO2 of 191. BUN is 10 with a creatinine of 1.03 and electrolytes show a sodium level of 135, serum bicarb is at 37. No other significant events overnight. As stated earlier, the patient has non ischemic cardiomyopathy. A outpatient cardiac arrest related to V. tach and another cardiac arrest on 01/02/2025 with development of acute pulmonary edema. During the resuscitation and post CPR, he also developed a left-sided pneumothorax. Chest x-ray from today shows ongoing pulmonary edema. Pne umothorax has recovered. No evidence of any air leak and the patient has a Thora vent over the left anterior chest. On 01/06/2025, the patient is being seen for a follow-up. This morning, the breann ent remains intubated on the mechanical ventilator. He is on propofol which was at 40 mcg and this was dropped down to 30 mcg/kg/min. The patient is currently off pressors. IV fluids are currently at KVO and the fluid balance is -2.1 L over the past 24 hours and the patient received Lasix 40 mg IV every 12 hours. The patient is on assist-control mode of mechanical ventilation at rate of 22, tidal volume of 400, FiO2 40% with a PEEP of 8. Blood gas showed a pH of 7.54 with a [id number] and PO2 of 87. The follow-up chest x-ray from today is showing minimal left apical pneumothorax, Thora vent is still in place. Multiple lines and catheters are still in place and the patient has a left lower lobe pulmonary infiltrate. Findings are essentially stable compared to yesterday. Rest of the labs show a white cell count of 20 with a hemoglobin of 10.3 and a platelet count of 282. The blood gas showed a pH of 7.54 with a PCO2 of 41 and PO2 of 87. Sodium level is at 139 with a potassium level of 4.6, BUN 16 with a creatinine of 1.1. Calcium levels at 7.8. Stool for C. difficile has been negative. The patient is currently on Zosyn and Diflucan. Norepinephrine has been discontinued and the patient remains on IV Lasix with excellent urine output. A sedation holiday is to be given today. The Thora vent is to be capped. 01/08/2020 time, the patient is being seen for a follow-up. The patient remains on propofol running at 40 mcg/kg/min. He remains intubated on the mechanical ventilator. He is on assist-control at rate of 22, tidal volume of 400, 30 to 40% with a PEEP of 6. Blood gas showed a pH of 7.52 with a [id number] and PO2 of 87. His fluid balance is +1.6 L. However, it is not an accurate measurement as the patient is having profuse diarrhea and he seems to be more so intravascularly depleted and the patient is currently on low-dose norepinephrine running at 0.04 mcg/kg/min. He remains on [employer] at rate of 40 cc an hour. Cardiac rhythm is sinus at this point. IV fluids are currently at KVO. Broad- spectrum antibiotics are in the form of daptomycin and Zosyn and Diflucan. ID is on the case managing his antibiotics. There was concern of a chronic cholecy stitis. Nevertheless, LFTs are normal and the patient has no signs or symptoms of an acute cholecystitis based on clinical evaluation and ultrasound imaging. The patient's sodium levels at 141 with a potassium level of 4.7, chlorides 105 with a bicarb of 27. BUN is 22 with a creatinine of 1.23. He has sustained an acute kidney injury as the patient's baseline creatinine was at 0.6 from few day s back. White cell count remains elevated at 26.2 with a heme of 8.8 and a platelet count of 252. As such, there is a drop in hemoglobin compared to yesterday. Chest x-ray was also reviewed and it shows atelectatic changes and possibly a small effusion in the left lung base. All of the catheters are in good location. No significant cardiac arrhythmias and the patient has been taken off the IV amiodarone drip and the patient is currently on oral amiodarone at a dose of 200 mg p.o. daily. On a separate note, the chest x-ray from today shows no evidence of any pneumothorax. Thora vent has been capped for the past 24 hours. Objective - Vital Signs Vital signs: Vital Signs Temp 99.9 F H 01/07/25 08:00 Pulse 126 H 01/07/25 08:00 Resp 22 01/07/25 08:00 BP 112/81 01/07/25 08:00 Pulse Ox 96 01/07/25 08:00 FiO2 40 01/07/25 10:01 Intake & Output 01/06/25 01/07/25 01/07/25 18:59 06:59 18:59 Intake Total 9600.406 0867.715 469 Output Total 685 265 250 Balance 796.322 899.715 219 Weight 61.7 kg Intake: IV 683 436 69 .9NS KVO 250 300 60 .9NS Pressure Bag 33 36 9 Piperacillin-Tazobactam 3 200 100 .375 gm In Sodium Chloride 0.9% 100 ml @ 25 mls/hr IVPB Q8HR VLAD Rx# :[id number] Potassium Chloride 20 meq 100 In Water For Injection 1 100ml.bag @ 50 mls/hr IVPB Q2H VLAD Rx#: [id number] metroNIDAZOLE-NS PMX 500 100 mg In Saline 1 100ml.bag @ 100 mls/hr IVPB Q8HR VLAD Rx#:[id number] Intake, IV Titration 148.322 118.715 200 Amount Magnesium Sulfate-D5w Pmx 100 1 gm In Dextrose/Water 1 100ml.bag @ 100 mls/hr IVPB ONCE ONE Rx#: [id number] Norepinephrine 8 mg In 18.928 Sodium Chloride 0.9% 250 ml @ 0.03 MCG/KG/MIN 3. 291 mls/hr IV .Q24H VLAD Rx#:[id number] Potassium Chloride 20 meq 100 In Water For Injection 1 100ml.bag @ 50 mls/hr IVPB Q2H VLAD Rx#: [id number] propofoL 1,000 mg In 148.322 99.787 Empty Bag 1 bag @ 15 MCG/ KG/MIN 4.788 mls/hr IV . [id number] VLAD Rx#:[id number] Tube Feeding 560 520 200 Other 90 90 Output: Urine 685 265 250 Other: Voiding Method Indwelling Catheter Indwelling Catheter Indwelling Catheter # Bowel Movements 1 1 1 ABP, PAP, CO, CI - Last Documented Arterial Blood Pressure 109/74 - Exam No acute distress, sedated, with an orally placed endotracheal tube. Sedated and the patient is calm comfortable. The patient is currently on propofol HEENT examination is grossly unremarkable. Mucous membranes are moist. No oral lesions. Neck supple. Full range of motion. No adenopathy thyromegaly or neck vein distention. Cardiovascular examination reveals regular rhythm rate. S1-S2 normal. No S3 or S4. No discernible murmur noted. Heart sounds are distant. The patient is currently wearing a LifeVest. Lungs reveal scattered bilateral mild to moderate rhonchorous breath sounds. No wheezes. No crackles. Breath sounds equal bilaterally. The patient has a Thora vent over the left anterior chest area. Breath sounds are equal and symmetrical bilaterally. Abdomen soft without bowel sounds. No masses or tenderness. Extremities are intact. No cyanosis clubbing and there is trace edema lower extremities bilaterally and some in the upper extremities. Skin is without rash or lesion. Neurologic examination cannot be evaluated at this time. The patient is sedated and the patient is calm and comfortable secondary to the mechanical ventilator. - Labs CBC & Chem 7: 01/07/25 04:00 01/07/25 12:15 Labs: Abnormal Lab Results - Last 24 Hours (Table) 01/06/25 01/06/25 01/06/25 Range/Units 11:52 16:41 23:19 WBC (4.50-10.00) 10*3/uL RBC (4.40-5.60) 10*6/uL Hgb (13.0-17.0) g/dL Hct (39.6-50.0) % MCHC (32.0-37.0) g/dL ABG pH (7.35-7.45) ABG HCO3 (21-25) mmol/L ABG Total CO2 (19-24) mmol/L ABG O2 Saturation (94-97) % Hemoglobin (13.0-17.5) gm/dL Potassium (3.5-5.1) mmol/L BUN (9-20) mg/dL Glucose (74-99) mg/dL POC Glucose (mg/dL) 205 H 208 H 182 H (70-110) mg/dL Calcium (8.4-10.2) mg/dL Total Bilirubin (0.2-1.3) mg/dL Alkaline Phosphatase (38-126) U/L Total Protein (6.3-8.2) g/dL Albumin (3.5-5.0) g/dL 01/07/25 01/07/25 01/07/25 Range/Units 04:00 04:00 04:53 WBC 26.27 H (4.50-10.00) 10*3/uL RBC 2.92 L (4.40-5.60) 10*6/uL Hgb 8.8 L D (13.0-17.0) g/dL Hct 27.9 L (39.6-50.0) % MCHC 31.5 L (32.0-37.0) g/dL ABG pH 7.52 H (7.35-7.45) ABG HCO3 31 H (21-25) mmol/L ABG Total CO2 33 H (19-24) mmol/L ABG O2 Saturation 97.4 H (94-97) % Hemoglobin 9.3 L (13.0-17.5) gm/dL Potassium 3.1 L (3.5-5.1) mmol/L BUN 22 H (9-20) mg/dL Glucose 188 H (74-99) mg/dL POC Glucose (mg/dL) (70-110) mg/dL Calcium 7.7 L (8.4-10.2) mg/dL Total Bilirubin 2.1 H (0.2-1.3) mg/dL Alkaline Phosphatase 222 H (38-126) U/L Total Protein 4.1 L (6.3-8.2) g/dL Albumin 1.7 L (3.5-5.0) g/dL 01/07/25 Range/Units 06:19 WBC (4.50-10.00) 10*3/uL RBC (4.40-5.60) 10*6/uL Hgb (13.0-17.0) g/dL Hct (39.6-50.0) % MCHC (32.0-37.0) g/dL ABG pH (7.35-7.45) ABG HCO3 (21-25) mmol/L ABG Total CO2 (19-24) mmol/L ABG O2 Saturation (94-97) % Hemoglobin (13.0-17.5) gm/dL Potassium (3.5-5.1) mmol/L BUN (9-20) mg/dL Glucose (74-99) mg/dL POC Glucose (mg/dL) 213 H (70-110) mg/dL Calcium (8.4-10.2) mg/dL Total Bilirubin (0.2-1.3) mg/dL Alkaline Phosphatase (38-126) U/L Total Protein (6.3-8.2) g/dL Albumin (3.5-5.0) g/dL Microbiology - Last 24 Hours (Table) 01/04/25 12:04 Stool Culture - Preliminary Stool Assessment and Plan Plan: [id number] cardiac arrest likely from V. tach. Repeat cardiac arrest likely from V. tach on 01/02/2025. The patient is hypotensive, probably cardiogenic in nature and the patient is not on low-dose norepinephrine. Chest x-ray still showing a component of pulmonary edema. Cardiac rhythm is sinus. No significant cardiac arrhythmias and the patient is currently onOral amiodarone 200 mg p.o. daily and the patient was also started on metoprolol 12.5 mg p.o. twice a day. He seems to be intravascular volume depleted and the patient is currently on low-dose norepinephrine. Urine output is also low. Hypotension, likely cardiogenic in nature and the patient is currently on low- dose pressors Cardiomyopathy, EF 20 to 25%, nonischemic, possible Takotsubo, repeat echo 30- 35% Acute pulmonary edema with secondary acute hypoxic respiratory failure and subsequent V. tach induced cardiac arrest Acute hypoxic respiratory failure, remains intubated on mechanical ventilator, multifactorial. This occurred secondary to CHF and pulmonary edema subsequently patient developed a left-sided pneumothorax treated with a Thora vent. The left-sided pneumothorax has recovered and the Thora vent has been For the past 24 hours Left pneumothorax, S/P Thora vent placement. No evidence of any air leak in the Thora vent is attached to a Pleur-evac and no evidence of any residual pneumothorax. the Thora vent has been capped for the past 24 hours Acute kidney injury, likely secondary to diarrhea intravascular depletion. History of chronic pancreatitis. Hyperammonemia, improved and the repeat ammonia level is down to 10 chronic alcohol abuse and alcoholic liver disease History of splenic vein thrombosis. History of syncope. History of chronic diarrhea. Lactic acidosis. Hypocalcemia, treated Hypomagnesemia, treated Leukocytosis Chronic cholecystitis Plan: Continue ventilator support. No ventilator changes for today. Will remove the Thora vent Will give the patient a bolus of 500 cc of lactated Ringer and repeat based on his blood pressure control and urine output Wean off pressors Keep the patient sedated on propofol Amiodarone 200 mg p.o. daily metoprolol 12.5 mg p.o. twice a day Discontinue IV Lasix Cardiac rhythm is sinus Continue enteral feeding for additional support Continue broad-spectrum antibiotics and the patient is currently combination of Zosyn Flagyl and Diflucan and daptomycin monitor diarrhea and stool for C. difficile has been negative Daily sedation holiday and assess patient's mental status Continue enteral feeding for nutritional support and the patient is currently receiving [employer] at a rate of 40 cc an hour Will continue to monitor the progress and make further recommendations based on his condition. This evaluation was done in 33 minutes. Time with Patient: Greater than 30
--- NOTE | 2025-01-07 22:10 | P.PN ---
Subjective Progress Note Date: 01/07/25 Principal diagnosis: Reason for follow-up is pneumonia/colitis Patient is a 44-year-old male with a past medical history significant for CVA TIA reflux history of recurrent/chronic pancreatitis from alcoholism and hypertension patient was brought into the hospital for lethargy seizure activity did have a cardiac arrest/V. tach requiring shock and subsequent admitted to the hospital.Patient did have a cardiac arrest last night patient is status post resuscitation intubation and transfer the ICU also have a right-sided pneumothorax. On today's visit that is 01/07/2025,the patient has been running a low-grade fever with a temperature of 99.9 F this morning patient remains to be intubated on the vent FiO2 is currently at 40% no significant purulent secretion through the ET or any other changes reported. Patient was noticed to have worsening of the white count is up to 6.27 creatinine is 1.23 sputum culture have been negative so far Objective - Vital Signs Vital signs: Vital Signs Temp 99.0 F 01/07/25 12:00 Pulse 102 H 01/07/25 13:00 Resp 25 H 01/07/25 12:00 BP 112/81 01/07/25 08:00 Pulse Ox 92 L 01/07/25 12:00 FiO2 40 01/07/25 12:34 Intake & Output 01/06/25 01/07/25 01/07/25 18:59 06:59 18:59 Intake Total 9605.116 2643.715 2021.629 Output Total 685 265 385 Balance 796.322 514.851 2716.629 Weight 61.7 kg Intake: IV 683 436 238 .9NS KVO 250 300 120 .9NS Pressure Bag 33 36 18 Piperacillin-Tazobactam 3 200 100 100 .375 gm In Sodium Chloride 0.9% 100 ml @ 25 mls/hr IVPB Q8HR [facility] Rx# :[id number] Potassium Chloride 20 meq 100 In Water For Injection 1 100ml.bag @ 50 mls/hr IVPB Q2H [facility] Rx#: [id number] metroNIDAZOLE-NS PMX 500 100 mg In Saline 1 100ml.bag @ 100 mls/hr IVPB Q8HR [facility] Rx#:[id number] Intake, IV Titration 148.322 163.554 1210.629 Amount DAPTOmycin 400 mg In 50 Sodium Chloride 0.9% 50 ml @ 100 mls/hr IVPB Q24HR [facility] Rx#:[id number] Lactated Ringers 500 ml @ 1000 999 mls/hr IV .Q31M [facility] Rx#:[id number] Magnesium Sulfate-D5w Pmx 100 1 gm In Dextrose/Water 1 100ml.bag @ 100 mls/hr IVPB ONCE ONE Rx#: [id number] Norepinephrine 8 mg In 18.928 Sodium Chloride 0.9% 250 ml @ 0.03 MCG/KG/MIN 3. 291 mls/hr IV .Q24H [facility] Rx#:[id number] Potassium Chloride 20 meq 100 In Water For Injection 1 100ml.bag @ 50 mls/hr IVPB ONCE STA Rx#: [id number] Potassium Chloride 20 meq 100 In Water For Injection 1 100ml.bag @ 50 mls/hr IVPB Q2H [facility] Rx#: [id number] propofoL 1,000 mg In 148.322 99.787 73.629 Empty Bag 1 bag @ 15 MCG/ KG/MIN 4.788 mls/hr IV . [id number] [facility] Rx#:[id number] Tube Feeding 560 520 360 Other 90 90 Output: Urine 685 265 385 Other: Voiding Method Indwelling Catheter Indwelling Catheter Indwelling Catheter # Bowel Movements 1 1 1 ABP, PAP, CO, CI - Last Documented Arterial Blood Pressure 100/64 - Exam GENERAL DESCRIPTION: Middle-age male intubated on the vent RESPIRATORY SYSTEM: Unlabored breathing , decreased breath sounds at bases HEART: S1 S2 regular rate and rhythm , ABDOMEN: Soft , no tenderness EXTREMITIES: No edema feet - Labs CBC & Chem 7: 01/07/25 04:00 01/07/25 12:15 Labs: Abnormal Lab Results - Last 24 Hours (Table) 01/06/25 01/06/25 01/07/25 Range/Units 16:41 23:19 04:00 WBC 26.27 H (4.50-10.00) 10*3/uL RBC 2.92 L (4.40-5.60) 10*6/uL Hgb 8.8 L D (13.0-17.0) g/dL Hct 27.9 L (39.6-50.0) % MCHC 31.5 L (32.0-37.0) g/dL ABG pH (7.35-7.45) ABG HCO3 (21-25) mmol/L ABG Total CO2 (19-24) mmol/L ABG O2 Saturation (94-97) % Hemoglobin (13.0-17.5) gm/dL Potassium (3.5-5.1) mmol/L BUN (9-20) mg/dL Glucose (74-99) mg/dL POC Glucose (mg/dL) 208 H 182 H (70-110) mg/dL Calcium (8.4-10.2) mg/dL Total Bilirubin (0.2-1.3) mg/dL Alkaline Phosphatase (38-126) U/L Total Protein (6.3-8.2) g/dL Albumin (3.5-5.0) g/dL 01/07/25 01/07/25 01/07/25 Range/Units 04:00 04:53 06:19 WBC (4.50-10.00) 10*3/uL RBC (4.40-5.60) 10*6/uL Hgb (13.0-17.0) g/dL Hct (39.6-50.0) % MCHC (32.0-37.0) g/dL ABG pH 7.52 H (7.35-7.45) ABG HCO3 31 H (21-25) mmol/L ABG Total CO2 33 H (19-24) mmol/L ABG O2 Saturation 97.4 H (94-97) % Hemoglobin 9.3 L (13.0-17.5) gm/dL Potassium 3.1 L (3.5-5.1) mmol/L BUN 22 H (9-20) mg/dL Glucose 188 H (74-99) mg/dL POC Glucose (mg/dL) 213 H (70-110) mg/dL Calcium 7.7 L (8.4-10.2) mg/dL Total Bilirubin 2.1 H (0.2-1.3) mg/dL Alkaline Phosphatase 222 H (38-126) U/L Total Protein 4.1 L (6.3-8.2) g/dL Albumin 1.7 L (3.5-5.0) g/dL 01/07/25 Range/Units 11:10 WBC (4.50-10.00) 10*3/uL RBC (4.40-5.60) 10*6/uL Hgb (13.0-17.0) g/dL Hct (39.6-50.0) % MCHC (32.0-37.0) g/dL ABG pH (7.35-7.45) ABG HCO3 (21-25) mmol/L ABG Total CO2 (19-24) mmol/L ABG O2 Saturation (94-97) % Hemoglobin (13.0-17.5) gm/dL Potassium (3.5-5.1) mmol/L BUN (9-20) mg/dL Glucose (74-99) mg/dL POC Glucose (mg/dL) 221 H (70-110) mg/dL Calcium (8.4-10.2) mg/dL Total Bilirubin (0.2-1.3) mg/dL Alkaline Phosphatase (38-126) U/L Total Protein (6.3-8.2) g/dL Albumin (3.5-5.0) g/dL Microbiology - Last 24 Hours (Table) 01/04/25 12:04 Stool Culture - Preliminary Stool Assessment and Plan (1) Sepsis Current Visit: Yes Status: Acute Code(s): A41.9 - SEPSIS, UNSPECIFIED ORGANISM SNOMED Code(s): 98814306 (2) Aspiration pneumonitis Current Visit: Yes Status: Acute Code(s): J69.0 - PNEUMONITIS DUE TO INHALATION OF FOOD AND VOMIT SNOMED Code(s): 002500179 (3) Colitis Current Visit: Yes Status: Acute Code(s): K52.9 - NONINFECTIVE GASTROENTERITIS AND COLITIS, UNSPECIFIED SNOMED Code(s): 53010949 (4) Cholecystitis Current Visit: Yes Status: Acute Code(s): K81.9 - CHOLECYSTITIS, UNSPECIFIED SNOMED Code(s): 10016361 Plan: 1patient presented to hospital with sepsis in this patient who did have tachycardia hypotension elevated white count meeting criteria for SIRS source likely aspiration pneumonitis as the patient did have intractable nausea vomiting before the patient has been brought to the hospital patient also have abnormality on the abdominal pelvis CT concerning for colitis question of infectious etiology need to be ruled out patient did not recall if he has been on antibiotic in the recent past 2-sputum cultures collected on 12/31/2024 reported as yeast 3-patient CT as well as ultrasound has been suspicious for cholecystitis HIDA scan has been suspicious for chronic cholecystitis General Surgery following the patient 4patient did have a cardiac arrest this is related and intubated in the ICU hypotension, patient did have a negative MRSA nasal screen repeat cultures so far negative 5patient is running a low-grade fever also noted to have worsening of the white count blood culture repeat has been requested daptomycin to be added and continue with Zosyn, care discussed continued with the [employer] for admitting team Dictation was produced using [employer] dictation software. please excuse any grammatical, word or spelling errors. Time with Patient: Less than 30
[2025-01-07 23:32] LABS: Glucose,Whole Blood 211 mg/dL (70-110)
[2025-01-08 04:56] LABS: ABG HCO3 26 mmol/L (21-25); ABG PCO2 34 mmHg (35-45); ABG PH 7.48 (7.35-7.45); ABG PO2 89 mmHg (83-108); ABG TCO2 27 mmol/L (19-24)
[2025-01-08 04:58] LABS: Allen Test Performed? No
[2025-01-08 04:58] LABS: Glucose,Whole Blood 201 mg/dL (70-110)
[2025-01-08 05:38] LABS: HCT 27.1 % (39.6-50.0); HGB 8.6 g/dL (13.0-17.0); MCH 30.9 pg (27.0-32.0); MCHC 31.7 g/dL (32.0-37.0); MCV 97.5 fL (80.0-97.0); Platelet Count 280 10*3/uL (140-440); RBC 2.78 10*6/uL (4.40-5.60); RDW 21.4 % (11.5-14.5); WBC 33.42 10*3/uL (4.50-10.00)
--- NOTE | 2025-01-08 06:01 | P.PN ---
Subjective Progress Note Date: 01/07/25 This is a pleasant 44-year-old male who was recently admitted after brief cardiac arrest with multiple electrolyte abnormalities being closely monitored. Patient being followed by cardiology and is status post cardiac catheterization recommending maximizing medical management and normal coronary arteries noted. Patient reports to having increasing pain and also generalized weakness although reports will be going home on discharge. Patient did have an elevated white count that had been trending down although is slightly up today with infectious disease following and will repeat CT abdomen for further evaluation. Continue current antibiotics at this time. Case management is following as plan is for LifeVest on discharge. Recommend incentive spirometer as patient is requiring oxygen and may require oxygen on discharge. Will reattempt home oxygen evaluation. Encourage increase activity as tolerated with sitting up out of the bed more frequently. Labs reviewed and white count is 25.52, hemoglobin is 8.8, platelets 446, sodium 137 with a potassium of 3.5, BUN is 5 and creatinine 0.33. Calcium is slightly low at 6.2, total bili is 1.4. 12/31/2024 Patient is seen in follow-up with multiple consultations following. White count was elevated although slightly improving with infectious disease following we will continue current regimen at this time. Patient continues to report short ness of breath and generalized pain and continues to require oxygen. Will need home O2 assessment. Patient underwent CT abdomen and will consult general surgery for evaluation. Encouraged increased activity as tolerated with sitting up more frequently in the chair. 01/01/2025 Patient seen and evaluated this morning currently scheduled to undergo HIDA scan per general surgery and patient is currently requesting increase in pain medications as she reports diffuse pain. Pain medications through the IV are currently on hold as patient will be undergoing HIDA scan. Patient's white count is elevated with infectious disease following maintained on Zosyn and will continue. Patient is afebrile with no reports of chest pain or palpitations. Patient is reporting some congestion and occasional shortness of breath. Will order chest x-ray as well. Continue DuoNeb treatments and supplemental oxygen as needed. Patient currently maintained on 5 L. Would recommend PT/OT therapy evaluation as patient has had prolonged cough elevation and appears frail and extremely weak. 01/02/2025 Patient is seen in follow-up was a CODE BLUE on 3 S. and was transferred to ICU intubated for respiratory arrest with cardiac arrest and ROSC received. Patient remains a full code per sister and will continue on mechanical ventilation with an FiO2 of 100% and PEEP of 10 currently. Blood pressures are soft and patient is maintained on pressor support and hemoglobin was noted to be 6.9 this morning and will give 1 unit of PRBC. White count remains elevated at 24.18 and maintained on antibiotics with infectious disease following. Sodium is 141 with a potassium of 3.0, creatinine 0.48, blood sugars elevated, lactic acid 5.1 with a calcium that is low at 5.6, magnesium 1.2. Prognosis remains extremely guarded and CODE STATUS needs to be addressed again. 01/03/2025 Patient is seen in follow-up in the ICU maintained on mechanical ventilation and FiO2 was adjusted per pulmonary narrow gauge operator but FiO2 is currently 60%. Patient maintained on pressor support including Levophed and vasopressin and also receiving Lasix. Blood sugars have been elevated and will adjust insulins accordingly including increasing long-acting. Patient is continued on tube feeds and will continue at this time. Per nursing staff patient did require Chris hugger for some time for hypothermia. Hemoglobin is stable at 8.3 status post 1 unit of PRBC, white count remains elevated at 19.68, sodium is 134 and potassium was again 2.9 with replacement of 3.5 and continued on protocol creatinine is stable at 0.63. Preliminary sputum culture from 12/31/2024 showing yeast species. 01/04/2025 Patient is seen in follow-up continues to be in the ICU on mechanical ventilation with multiple consultations following. FiO2 is 60% and patient is continued on low-dose pressor and support, Levophed has been discontinued and p atient has been weaned off fentanyl and patient is not on Versed at this time. Patient continues on sedation with propofol and per nursing staff will undergo sedation trials to assess mentation. Patient is continued on antibiotics and will continue with infectious disease following. Blood sugars have been on the lower side and tube feedings have been started and tolerating thus far working on goal and will discontinue long-acting insulin and monitor closely with just Accu-Cheks and sliding scale for now. Prognosis remains extremely guarded and patient remains full code per family at this time. White count remains elevated at 23.15, hemoglobin is stable at 9.0 with no active bleeding noted, platelets are 319, sodium is 134 with a potassium of 3.8, BUN is 5 and creatinine is 0.79. Magnesium is 1.6 and receiving replacement. 01/05/2025 Patient is seen in follow-up today maintained on mechanical ventilation with no plans of weaning today continues on low-dose Levophed and other pressor support being weaned. Per nursing staff patient's blood pressures were extremely low overnight requiring reinitiation of the Levophed which is currently being weaned as tolerated. Patient is maintained on mechanical ventilation with an FiO2 of 40% PEEP is at 10. Patient remains full code and will attempt to contact family to discuss treatment plan and overall prognosis. Patient continues with Pleurx catheter in the left chest wall with no leak noted recommending to continue for another 24 hours as there was a noted tiny pneumothorax on the left on imaging. Per nursing staff patient is experiencing a mild rectal prolapse and would recommend keeping the area moist and lubricated as much as possible. Patient continues to have loose stools and is maintained on antibiotics with infectious disease following. 01/06/2025 Patient is seen in follow-up continues in the ICU on mechanical ventilation with an FiO2 of 40% PEEP is being adjusted to 6 per pulmonary narrow gauge operator cleared no plans of weaning at this time recommending initiating small sedation trials to assess mentation. Patient has been weaned off pressor support with medications being adjusted and cardiology following. Patient continues with Thora vent on the left and per narrow gauge operator will be capped with possible removal in the next 24 hours as chest x-ray reveals a tiny pneumothorax that is stable. Patient continues on IV Lasix and will continue as patient is extremely edematous in upper and lower extremities. Patient continues on IV antibiotics in the form of Zosyn and Flagyl and also Diflucan and will continue with infectious disease following. Repeat cultures are pending at this time and patient remains afeb rile. 01/07/2025 Patient is seen in follow-up continues on mechanical ventilation with an FiO2 of 40% and PEEP of 6. Per nursing staff patient did become more hypotensive and tachycardic requiring Levophed to be resumed and currently on hold as blood pressures have improved and will continue to wean as tolerated. Patient continues with significant volume overload and is maintained on IV Lasix daily. Patient continues to have an elevated white count with worsening and also having increased fevers with infectious disease following and will add daptomycin and repeat cultures. Patient remains sedated at this time with no plans of weaning. Pulmonary narrow gauge operator following closely. Thora vent on the left is being removed and will follow-up with repeat chest x-rays. Review of systems: Unable to assess as patient is intubated and sedated All medications have been reviewed PHYSICAL EXAMINATION: GENERAL: The patient is alert and oriented x0, continued on mechanical vent with an FiO2 of 40 % and PEEP is 6. Well developed, elderly appearing, thin built, cachectic, chronically ill-appearing HEENT: Pupils are round and equally reacting to light. EOMI. no scleral icterus. No conjunctival pallor. Normocephalic, atraumatic. No pharyngeal erythema. No thyromegaly. CARDIOVASCULAR: S1 and S2 muffled PULMONARY: diminished breath sounds bilaterally with no wheezing, scattered coarse rhonchi noted with upper bronchial congestion. Crackles noted at the bases, left chest wall Thora vent noted that is capped ABDOMEN: soft. Nontender on exam. Thin non-distended, normoactive bowel s ounds. No palpable organomegaly. MUSCULOSKELETAL: No joint swelling or deformity. EXTREMITIES: No cyanosis, clubbing, or pedal edema. NEUROLOGICAL: Gross neurological examination did not reveal any focal deficits. Unable to completely assess as patient is sedated and on mechanical ventilation SKIN: No rashes. Extremely pale Assessment: Cardiac arrest, possibly secondary to ventricular tachycardia secondary to multiple electrolyte abnormalities Respiratory arrest with cardiac arrest requiring mechanical ventilation 01/01/2025 likely secondary to V. tach Severe hypokalemia, hypomagnesemia, hypocalcemia, improving after replacement, continue to monitor closely History of EtOH Nonischemic cardiomyopathy possible Takotsubo, EF was 20 to 25%, repeat is 30- 35, continued on LifeVest Possible acute colitis as noted on imaging Diabetes mellitus, type II, uncontrolled with hyperglycemia History of pancreatitis Tachycardia Anemia, chronic, hemoglobin stable above 8 today Concerns of possible right lower lobe pneumonia, possibly aspiration History of splenic vein thrombosis, was on Eliquis Hepatic encephalopathy Moderate protein calorie malnutrition with a BMI of 17.7 GI prophylaxis DVT prophylaxis Full code Plan: Recommend to continue with current medications and management with multiple consultations following. Patient remains in the ICU on mechanical ventilation and FiO2 is 40% and PEEP is being adjusted to 6 per pulmonary narrow gauge operator. Undergoing sedation trials with no plans of weaning at this time. Patient had respiratory arrest with cardiac arrest on 01/01/2025 and was placed on mechanical ventilation. Pressor supports have been initiated again for overnight hypotension and weaning Levophed today infectious disease following as white count remains elevated although worsening above 24 and patient is maintained on antibiotics in the form of Zosyn and will add daptomycin per ID recommendations. General surgery following as there was concern of cholecystitis with discussion of possible surgical intervention although no plans for intervention at this time Cardiology following and patient is status post catheterization recommending maximizing medical management and case management following and has received LifeVest. Patient does currently have LifeVest on. Patient has transition to oral amiodarone off amiodarone drip Continue monitoring Accu-Cheks AC and at bedtime and adjust accordingly. Blood sugars have been on the lower side and will hold long-acting and continue with just sliding scale for now Follow-up on repeat labs and replace electrolytes per protocol. Replace potassium and magnesium per protocol Per nursing staff sister reports patient is full code and to remain full code per family. CODE STATUS needs to be readdressed and overall prognosis is extremely poor and guarded at this time The impression and plan of care has been dictated by Ana Duggan, Nurse Practitioner as directed. Dr. Koby MD I have performed a history and examination and MDM of this patient, discussed the same with the dictator, and agree with the dictator's assessment and plan as written ,documented as a scribe. Based on total visit time, I have performed more than 50% of the visit. Objective - Vital Signs Vital signs: Vital Signs Temp 99.9 F H 01/07/25 08:00 Pulse 126 H 01/07/25 08:00 Resp 22 01/07/25 08:00 BP 112/81 01/07/25 08:00 Pulse Ox 96 01/07/25 08:00 FiO2 40 01/07/25 08:00 Intake & Output 01/06/25 01/07/25 01/07/25 18:59 06:59 18:59 Intake Total 4762.326 0608.715 469 Output Total 685 265 250 Balance 796.322 899.715 219 Weight 61.7 kg Intake: IV 683 436 69 .9NS KVO 250 300 60 .9NS Pressure Bag 33 36 9 Piperacillin-Tazobactam 3 200 100 .375 gm In Sodium Chloride 0.9% 100 ml @ 25 mls/hr IVPB Q8HR [facility] Rx# :[id number] Potassium Chloride 20 meq 100 In Water For Injection 1 100ml.bag @ 50 mls/hr IVPB Q2H [facility] Rx#: [id number] metroNIDAZOLE-NS PMX 500 100 mg In Saline 1 100ml.bag @ 100 mls/hr IVPB Q8HR [facility] Rx#:[id number] Intake, IV Titration 148.322 118.715 200 Amount Magnesium Sulfate-D5w Pmx 100 1 gm In Dextrose/Water 1 100ml.bag @ 100 mls/hr IVPB ONCE ONE Rx#: [id number] Norepinephrine 8 mg In 18.928 Sodium Chloride 0.9% 250 ml @ 0.03 MCG/KG/MIN 3. 291 mls/hr IV .Q24H [facility] Rx#:[id number] Potassium Chloride 20 meq 100 In Water For Injection 1 100ml.bag @ 50 mls/hr IVPB Q2H [facility] Rx#: [id number] propofoL 1,000 mg In 148.322 99.787 Empty Bag 1 bag @ 15 MCG/ KG/MIN 4.788 mls/hr IV . [id number] [facility] Rx#:[id number] Tube Feeding 560 520 200 Other 90 90 Output: Urine 685 265 250 Other: Voiding Method Indwelling Catheter Indwelling Catheter Indwelling Catheter # Bowel Movements 1 1 1 ABP, PAP, CO, CI - Last Documented Arterial Blood Pressure 109/74 - Labs CBC & Chem 7: 01/08/25 05:00 01/07/25 12:15 Labs: Abnormal Lab Results - Last 24 Hours (Table) 01/06/25 01/06/25 01/06/25 Range/Units 11:52 16:41 23:19 WBC (4.50-10.00) 10*3/uL RBC (4.40-5.60) 10*6/uL Hgb (13.0-17.0) g/dL Hct (39.6-50.0) % MCHC (32.0-37.0) g/dL ABG pH (7.35-7.45) ABG HCO3 (21-25) mmol/L ABG Total CO2 (19-24) mmol/L ABG O2 Saturation (94-97) % Hemoglobin (13.0-17.5) gm/dL Potassium (3.5-5.1) mmol/L BUN (9-20) mg/dL Glucose (74-99) mg/dL POC Glucose (mg/dL) 205 H 208 H 182 H (70-110) mg/dL Calcium (8.4-10.2) mg/dL Total Bilirubin (0.2-1.3) mg/dL Alkaline Phosphatase (38-126) U/L Total Protein (6.3-8.2) g/dL Albumin (3.5-5.0) g/dL 01/07/25 01/07/25 01/07/25 Range/Units 04:00 04:00 04:53 WBC 26.27 H (4.50-10.00) 10*3/uL RBC 2.92 L (4.40-5.60) 10*6/uL Hgb 8.8 L D (13.0-17.0) g/dL Hct 27.9 L (39.6-50.0) % MCHC 31.5 L (32.0-37.0) g/dL ABG pH 7.52 H (7.35-7.45) ABG HCO3 31 H (21-25) mmol/L ABG Total CO2 33 H (19-24) mmol/L ABG O2 Saturation 97.4 H (94-97) % Hemoglobin 9.3 L (13.0-17.5) gm/dL Potassium 3.1 L (3.5-5.1) mmol/L BUN 22 H (9-20) mg/dL Glucose 188 H (74-99) mg/dL POC Glucose (mg/dL) (70-110) mg/dL Calcium 7.7 L (8.4-10.2) mg/dL Total Bilirubin 2.1 H (0.2-1.3) mg/dL Alkaline Phosphatase 222 H (38-126) U/L Total Protein 4.1 L (6.3-8.2) g/dL Albumin 1.7 L (3.5-5.0) g/dL 01/07/25 Range/Units 06:19 WBC (4.50-10.00) 10*3/uL RBC (4.40-5.60) 10*6/uL Hgb (13.0-17.0) g/dL Hct (39.6-50.0) % MCHC (32.0-37.0) g/dL ABG pH (7.35-7.45) ABG HCO3 (21-25) mmol/L ABG Total CO2 (19-24) mmol/L ABG O2 Saturation (94-97) % Hemoglobin (13.0-17.5) gm/dL Potassium (3.5-5.1) mmol/L BUN (9-20) mg/dL Glucose (74-99) mg/dL POC Glucose (mg/dL) 213 H (70-110) mg/dL Calcium (8.4-10.2) mg/dL Total Bilirubin (0.2-1.3) mg/dL Alkaline Phosphatase (38-126) U/L Total Protein (6.3-8.2) g/dL Albumin (3.5-5.0) g/dL Microbiology - Last 24 Hours (Table) 01/04/25 12:04 Stool Culture - Preliminary Stool
[2025-01-08 06:12] LABS: African American GFR (CKD) >90 (>60 ml/min/1.73 sqM); Anion Gap 10 mmol/L; Blood Urea Nitrogen 27 mg/dL (9-20); Calcium 7.7 mg/dL (8.4-10.2); Carbon Dioxide 23 mmol/L (22-30); Chloride 108 mmol/L (98-107); Glucose 171 mg/dL (74-99); Non-African American GFR(CKD) 79 (>60 ml/min/1.73 sqM); Potassium 3.3 mmol/L (3.5-5.1); Sodium 141 mmol/L (137-145)
--- NOTE | 2025-01-08 07:06 | XR ---
EXAMINATION TYPE: XR chest 1V portable DATE OF EXAM: 01/08/2025 5:55 AM COMPARISON: 01/07/2025 CLINICAL INDICATION: Male, 44 years old with history of respiratory failure, TECHNIQUE: XR chest 1V portable view(s) obtained. FINDINGS: The heart size is normal. The pulmonary vasculature is normal. There may be retrocardiac infiltrate and partial silhouetting the left diaphragm. Electronic devices overlie the chest. Right central venous catheter tip is within the proximal right atrium. Endotracheal tube tip is 8.2 cm. Nasogastric tube transverse the thorax IMPRESSION: 1. Left lower lobe infiltrate. Correlate for atelectasis or pneumonia. Small effusion is not excluded . 2. Lines and catheters discussed above [facility], , 01/08/2025 7:04 AM
[2025-01-08] MEDS: POTASSIUM BICARBONATE/CIT AC 20 MEQ TABLET.EFF NG-TUBE SCH (08:03)
[2025-01-08] MEDS: FUROSEMIDE 10 MG/ML 4 ML VIAL IV SCH (08:04)
[2025-01-08 12:07] LABS: Glucose,Whole Blood 207 mg/dL (70-110)
[2025-01-08 12:44] VITALS: BMI 21.9
--- NOTE | 2025-01-08 16:36 | P.PN ---
Subjective Progress Note Date: 01/08/25 Cardiopulmonary arrest. This is a 44-year-old white male brought into the emergency room earlier this mo rning by EMS with altered mental status and seizure-like activity. Apparently the patient is known to have past medical history of alcohol use, chronic pancreatitis, pancreatic pseudocyst, history of hypertension, previous history of TIA, patient had a sudden feeling of dizziness, and asked his roommate to call EMS. Apparently upon arrival of EMS he was found to have seizure-like activity and went unresponsive on the monitor the patient was noted to have ventricular tachycardia, CPR was started and the patient received 1 shock. Patient became conscious again, and his rhythm came back with return of circulation. Apparently for the last few days the patient has been experiencing episodes of nausea and vomiting and episodes of low blood sugar. In addition, patient has been complaining of episodes of diarrhea for the last 2 weeks. Patient normally follows up at [facility] for his pancreatitis and pseudocyst. He is also known to have history of splenic vein thrombosis, maint ained on anticoagulation. And has been taking Eliquis until yesterday. Patient drinks occasionally at this point, used to be a heavy drinker in the past. I evaluated the patient in the ER, and considering his cardiac arrest history, I recommended admitting the patient to the ICU, and he is to be seen by other consultants including cardiology. During my evaluation the patient was not in any distress, he was hemodynamically stable, all his labs were reviewed. Patient was seen today on 12/25/2024, remains in the ICU mostly because of his profound electrolyte abnormalities including hypocalcemia, hypomagnesium , hypokalemia, these are all being addressed accordingly mostly related to his GI symptoms and his pancreatitis. As well as diarrhea and nausea and vomiting. Patient is not in any distress, he is on 2 L nasal cannula, has been receiving potassium almost every 2 hours 20 mEq orally remains empirically on Zosyn, continues to have some vague abdominal pain and discomfort. WBC count today is 12.2 hemoglobin 9.5 electrolytes showed low sodium of 131 low potassium 2.9 but few hours later it was up to 3.8 renal functioning is normal calcium is up to 5.8 today. Add magnesium is up to 2.1, these are all being addressed daily. Cardiac sheppard the patient is in sinus rhythm, no further episodes of tachyarrhythmia. Seen today on 12/26/2024, patient remains in the ICU, feeling better, he has no active pulmonary symptoms no GI symptoms and no cardiac symptoms. Labs have shown significant improvement his potassium today is 4.5 calcium is up to 6 however his albumin is 1.9 which makes his corrected calcium 7.68., Improved, but not up to 8.4 or higher. Hence would recommend more calcium gluconate to be given for this patient. Magnesium not done today however was 2.1 yesterday. Seen today on 12/27/2024, patient is doing well, asymptomatic. Has some vague abdominal pain no cough no wheezing no shortness of breath no chest pain. No palpitations CBC showed leukocytosis WBC count of 15.9 hemoglobin 8.8. His electrolytes are normal potassium is 3.8 calcium is up to 6.8/uncorrected to albumin. 01/02/25 - He was seen and examined in the ICU, room 258. He was previously seen by pulmonary/critical care up until 12/27/2024, at which time we signed off care. Since that time, on 12/30/2024 he underwent a cardiac catheterization with Dr. Rosario which revealed normal coronary arteries, cardiomyopathy of nonischemic etiology. He was being followed by infectious disease due to possible colitis, and had been placed on antibiotics, general surgery for exploratory laparotomy in regards to cholecystitis and colitis. Late in the evening on 01/01/2025 a CODE BLUE was called in which the patient had diminished breath sounds and was tachypneic. He became bradycardic and then went asystole, at which time CPR was initiated. CODE BLUE as per the event note in the patient's chart. ROSC was achieved with 2 rounds of epinephrine. At that time patient was intubated, transferred to the ICU and initiated on a bicarb drip. He was noted to have pneumothorax of the left lung. He was intubated on 01/01/2025 and has not been mechanically ventilated with a tidal volume 400, respiratory rate 22, FiO2 100% and PEEP of 10. Most recent blood gas showed pO2 66, pCO2 45 and pH 7.37. Most recent labs showed WBCs 27.2, hemoglobin 6.9, hematocrit 21.8, platelet 339; sodium 141, potassium 2.6, bicarb 20, BUN <2, creatinine 0.48, lactic acid 11.7, calcium 5.6, ionized calcium 3.4, magnesium 1.2, total bilirubin 1.2, AST 99, ALT 29, alkaline phosphatase 183, TSH 0.551. He is currently receiving norepinephrine 0.39 mcg/kg/min, and sedated with fentanyl at 1 mcg/kg/h, propofol at 50 mcg/kg/h, and received an additional 10 mg of Nimbex prior to left radial arterial line placement. He continues receiving vancomycin, Zosyn, Flagyl and Diflucan. Progress note dated January 03, 2025. This is a 44-year-old male seen in room 258. He remains on mechanical ventilator. He is on volume assist-control, rate 22, tidal volume 400, FiO2 70%, PEEP of 10. Blood gases show pO2 123, pCO2 50, pH of 7.46. He has a left Thora vent in place. He is on fentanyl at 1.5 mcg/kg/h, D5W with 3 ampoules of sodium bicarbonate at 150 cc an hour, propofol at 50 mcg/kg/min, saline at 30 cc an hour, norepinephrine at 6 mcg/min, and vasopressin at 0.03 units/min. Sodium bicarbonate drip can be discontinued. The patient is currently also on fluconazole, Flagyl, vancomycin, and Zosyn. Current labs include a white count of 19.7, hemoglobin 8.3, hematocrit 25, and platelet count 304,000. Sodium 134, potassium 2.9, chloride 94, CO2 35, BUN 2, creatinine 0.63. Calcium is 5.3, and ionized calcium is low at 3.4. Albumin is 1.4. Cultures thus far are negative, save for the sputum showing evidence of yeast. Chest x-ray shows the left lung to be expanded, with a very tiny pneumothorax. There is diffuse changes throughout, largely unchanged. Progress note dated January 04, 2025. 44-year-old male seen today in room 258. He continues on volume assist-control, rate 22, tidal volume 400, 60% FiO2, PEEP of 10. Blood gases show pO2 of 93, pCO2 50, pH of 7.49. Is currently on propofol at 40 mcg/kg/min, vasopressin at 0.02 units/min, saline at 40 cc an hour, and tube feedings, at 21 cc an hour, which is goal. He continues on Diflucan, Flagyl, and Zosyn. White count is 23.2, hemoglobin 9, hematocrit 26.7, and platelet count is 319,000. Sodium 134, potassium 3.8, chloride 92, CO2 37, BUN is 5, with creatinine 0.79. Glucose 196. Calcium 6.5. Magnesium 1.6. Tiny apical left pneumothorax. Thora vent device is still noted. On 01/05/2025, the patient is being seen for a follow-up. This morning, the patient remains intubated on a mechanical ventilator. The patient is on propo fol running at 40 mcg/kg/min. Earlier this morning, the patient was noted to be slightly hypotensive and started on norepinephrine which is currently running at low-dose of 0.01 mcg/kg/min. Nevertheless, the dose needs to be adjusted as the patient continues to have and run a low blood pressure. He remains on the mechanical ventilator assist-control mode rate of 22, tidal volume of 400, FiO2 50% with a PEEP of 10. Fluid balance is -2.1 L over the past 24 hours. His cardiac rhythm is sinus. He is covered with broad-spectrum antibiotics and the patient is currently on a combination of Zosyn and Flagyl and Diflucan and he remains on IV Lasix. He is also on tube feeds and the patient is using [employer] 1.4 at a rate of 21 cc an hour. The blood work from today shows a WBC count of 17.8 with a hemoglobin of 9.8 and a platelet count of 272. Blood gas showed a pH of 7.53 with a [id number] and PO2 of 191. BUN is 10 with a creatinine of 1.03 and electrolytes show a sodium level of 135, serum bicarb is at 37. No other significant events overnight. As stated earlier, the patient has non ischemic cardiomyopathy. A outpatient cardiac arrest related to V. tach and another cardiac arrest on 01/02/2025 with development of acute pulmonary edema. During the resuscitation and post CPR, he also developed a left-sided pneumothorax. Chest x-ray from today shows ongoing pulmonary edema. Pne umothorax has recovered. No evidence of any air leak and the patient has a Thora vent over the left anterior chest. On 01/06/2025, the patient is being seen for a follow-up. This morning, the breann ent remains intubated on the mechanical ventilator. He is on propofol which was at 40 mcg and this was dropped down to 30 mcg/kg/min. The patient is currently off pressors. IV fluids are currently at KVO and the fluid balance is -2.1 L over the past 24 hours and the patient received Lasix 40 mg IV every 12 hours. The patient is on assist-control mode of mechanical ventilation at rate of 22, tidal volume of 400, FiO2 40% with a PEEP of 8. Blood gas showed a pH of 7.54 with a [id number] and PO2 of 87. The follow-up chest x-ray from today is showing minimal left apical pneumothorax, Thora vent is still in place. Multiple lines and catheters are still in place and the patient has a left lower lobe pulmonary infiltrate. Findings are essentially stable compared to yesterday. Rest of the labs show a white cell count of 20 with a hemoglobin of 10.3 and a platelet count of 282. The blood gas showed a pH of 7.54 with a PCO2 of 41 and PO2 of 87. Sodium level is at 139 with a potassium level of 4.6, BUN 16 with a creatinine of 1.1. Calcium levels at 7.8. Stool for C. difficile has been negative. The patient is currently on Zosyn and Diflucan. Norepinephrine has been discontinued and the patient remains on IV Lasix with excellent urine output. A sedation holiday is to be given today. The Thora vent is to be capped. 01/08/2020 time, the patient is being seen for a follow-up. The patient remains on propofol running at 40 mcg/kg/min. He remains intubated on the mechanical ventilator. He is on assist-control at rate of 22, tidal volume of 400, 30 to 40% with a PEEP of 6. Blood gas showed a pH of 7.52 with a [id number] and PO2 of 87. His fluid balance is +1.6 L. However, it is not an accurate measurement as the patient is having profuse diarrhea and he seems to be more so intravascularly depleted and the patient is currently on low-dose norepinephrine running at 0.04 mcg/kg/min. He remains on [employer] at rate of 40 cc an hour. Cardiac rhythm is sinus at this point. IV fluids are currently at KVO. Broad- spectrum antibiotics are in the form of daptomycin and Zosyn and Diflucan. ID is on the case managing his antibiotics. There was concern of a chronic cholecy stitis. Nevertheless, LFTs are normal and the patient has no signs or symptoms of an acute cholecystitis based on clinical evaluation and ultrasound imaging. The patient's sodium levels at 141 with a potassium level of 4.7, chlorides 105 with a bicarb of 27. BUN is 22 with a creatinine of 1.23. He has sustained an acute kidney injury as the patient's baseline creatinine was at 0.6 from few day s back. White cell count remains elevated at 26.2 with a heme of 8.8 and a platelet count of 252. As such, there is a drop in hemoglobin compared to yesterday. Chest x-ray was also reviewed and it shows atelectatic changes and possibly a small effusion in the left lung base. All of the catheters are in good location. No significant cardiac arrhythmias and the patient has been taken off the IV amiodarone drip and the patient is currently on oral amiodarone at a dose of 200 mg p.o. daily. On a separate note, the chest x-ray from today shows no evidence of any pneumothorax. Thora vent has been capped for the past 24 hours. 01/08/2025, the patient is being seen for a follow-up. The patient this morning is on propofol running at 40 mcg/kg/min. Remains on a mechanical ventilator, assist-control mode rate of 22, tidal volume of 400, FiO2 40% with a PEEP of 6. Blood gas showed pH of 7.48 with a PCO2 of 34 and PO2 of 89. Chest x-ray shows adequate expansion of both lungs. No acute airspace disease or consolidation is noted. The patient did have some hypotension and acute kidney injury on yesterday's evaluation. Based on that, the patient was given a total of 1.5 L of bolus of lactated Ringer. Fluid balance is +2.6 L over the past 24 hours. The patient is currently off pressors. He is having limited diarrhea. IV fluids are currently at KVO. He is receiving enteral feeding [employer] at a rate of 40 cc an hour. No abdominal distention. No fever. No cardiac arrhythm ias and the cardiac rhythm remains sinus. The white cell count is higher compared to yesterday. The white cell count is currently up to 33 with a hemoglobin of 8.6 and a platelet count of 280. The sodium is at 141, potassium is at 4.4, BUN 27 with a creatinine of 1.1. Stool for C. difficile has been negative. He is running a low-grade temperature of 100.0. He is currently on a combination of Zosyn, daptomycin and Diflucan. He remains on amiodarone 200 mg p.o. daily. He is receiving Lasix 40 mg IV every 24 hours. He remains on metoprolol 12.5 mg p.o. twice a day. He is also on midodrine. No pressors for now. Objective - Vital Signs Vital signs: Vital Signs Temp 37.5 F L 01/08/25 08:00 Pulse 112 H 01/08/25 08:44 Resp 32 H 01/08/25 08:00 BP 112/81 01/07/25 08:00 Pulse Ox 97 01/08/25 08:00 FiO2 40 01/08/25 08:30 Intake & Output 01/07/25 01/08/25 01/08/25 18:59 06:59 18:59 Intake Total 2557.744 1043.608 378.136 Output Total 600 355 115 Balance 1957.744 688.608 263.136 Weight 61.8 kg Intake: IV 399 313 156 .9NS KVO 260 280 50 .9NS Pressure Bag 39 33 6 Piperacillin-Tazobactam 3 100 100 .375 gm In Sodium Chloride 0.9% 100 ml @ 25 mls/hr IVPB Q8HR [facility] Rx# :[id number] Intake, IV Titration 1478.744 160.608 102.136 Amount DAPTOmycin 400 mg In 50 50 Sodium Chloride 0.9% 50 ml @ 100 mls/hr IVPB Q24HR [facility] Rx#:[id number] Lactated Ringers 500 ml @ 1000 999 mls/hr IV .Q31M ONE Rx#:[id number] Magnesium Sulfate-D5w Pmx 100 1 gm In Dextrose/Water 1 100ml.bag @ 100 mls/hr IVPB ONCE ONE Rx#: [id number] Norepinephrine 8 mg In 1.646 Sodium Chloride 0.9% 250 ml @ 0.03 MCG/KG/MIN 3. 291 mls/hr IV .Q24H [facility] Rx#:[id number] Potassium Chloride 20 meq 100 In Water For Injection 1 100ml.bag @ 50 mls/hr IVPB ONCE STA Rx#: [id number] Potassium Chloride 20 meq 100 In Water For Injection 1 100ml.bag @ 50 mls/hr IVPB Q2H [facility] Rx#: [id number] propofoL 1,000 mg In 128.744 158.962 52.136 Empty Bag 1 bag @ 15 MCG/ KG/MIN 4.788 mls/hr IV . [id number] [facility] Rx#:[id number] Tube Feeding 680 480 120 Other 90 Output: Urine 600 355 115 Other: Voiding Method Indwelling Catheter Indwelling Catheter Indwelling Catheter # Bowel Movements 1 1 ABP, PAP, CO, CI - Last Documented Arterial Blood Pressure 113/69 - Exam No acute distress, sedated, with an orally placed endotracheal tube. Sedated and the patient is calm comfortable. The patient is currently on propofol HEENT examination is grossly unremarkable. Mucous membranes are moist. No oral lesions. Neck supple. Full range of motion. No adenopathy thyromegaly or neck vein distention. Cardiovascular examination reveals regular rhythm rate. S1-S2 normal. No S3 or S4. No discernible murmur noted. Heart sounds are distant. The patient is currently wearing a LifeVest. Lungs reveal scattered bilateral mild to moderate rhonchorous breath sounds. No wheezes. No crackles. Breath sounds equal bilaterally. The patient has a Thora vent over the left anterior chest area. Breath sounds are equal and symmetrical bilaterally. Abdomen soft without bowel sounds. No masses or tenderness. Extremities are intact. No cyanosis clubbing and there is trace edema lower extremities bilaterally and some in the upper extremities. Skin is without rash or lesion. Neurologic examination cannot be evaluated at this time. The patient is sedated and the patient is calm and comfortable secondary to the mechanical ventilator. - Labs CBC & Chem 7: 01/08/25 05:00 01/08/25 12:55 Labs: Abnormal Lab Results - Last 24 Hours (Table) 01/07/25 01/07/25 01/07/25 Range/Units 11:10 17:14 23:31 WBC (4.50-10.00) 10*3/uL RBC (4.40-5.60) 10*6/uL Hgb (13.0-17.0) g/dL Hct (39.6-50.0) % MCV (80.0-97.0) fL MCHC (32.0-37.0) g/dL ABG pH (7.35-7.45) ABG pCO2 (35-45) mmHg ABG HCO3 (21-25) mmol/L ABG Total CO2 (19-24) mmol/L ABG O2 Saturation (94-97) % Hemoglobin (13.0-17.5) gm/dL Potassium (3.5-5.1) mmol/L Chloride (98-107) mmol/L BUN (9-20) mg/dL Glucose (74-99) mg/dL POC Glucose (mg/dL) 221 H 118 H 211 H (70-110) mg/dL Calcium (8.4-10.2) mg/dL 01/08/25 01/08/25 01/08/25 Range/Units 04:52 04:57 05:00 WBC 33.42 H (4.50-10.00) 10*3/uL RBC 2.78 L (4.40-5.60) 10*6/uL Hgb 8.6 L (13.0-17.0) g/dL Hct 27.1 L (39.6-50.0) % MCV 97.5 H (80.0-97.0) fL MCHC 31.7 L (32.0-37.0) g/dL ABG pH 7.48 H (7.35-7.45) ABG pCO2 34 L (35-45) mmHg ABG HCO3 26 H (21-25) mmol/L ABG Total CO2 27 H (19-24) mmol/L ABG O2 Saturation 97.5 H (94-97) % Hemoglobin 8.9 L (13.0-17.5) gm/dL Potassium (3.5-5.1) mmol/L Chloride (98-107) mmol/L BUN (9-20) mg/dL Glucose (74-99) mg/dL POC Glucose (mg/dL) 201 H (70-110) mg/dL Calcium (8.4-10.2) mg/dL 01/08/25 Range/Units 05:00 WBC (4.50-10.00) 10*3/uL RBC (4.40-5.60) 10*6/uL Hgb (13.0-17.0) g/dL Hct (39.6-50.0) % MCV (80.0-97.0) fL MCHC (32.0-37.0) g/dL ABG pH (7.35-7.45) ABG pCO2 (35-45) mmHg ABG HCO3 (21-25) mmol/L ABG Total CO2 (19-24) mmol/L ABG O2 Saturation (94-97) % Hemoglobin (13.0-17.5) gm/dL Potassium 3.3 L (3.5-5.1) mmol/L Chloride 108 H (98-107) mmol/L BUN 27 H (9-20) mg/dL Glucose 171 H (74-99) mg/dL POC Glucose (mg/dL) (70-110) mg/dL Calcium 7.7 L (8.4-10.2) mg/dL Microbiology - Last 24 Hours (Table) 01/02/25 16:07 Blood Culture - Final Blood 01/04/25 12:04 Stool Culture - Preliminary Stool Assessment and Plan Plan: [id number] cardiac arrest likely from V. tach. Repeat cardiac arrest likely from V. tach on 01/02/2025. The patient is hypotensive, probably cardiogenic in nature the patient is currently off pressors.. Cardiac rhythm is sinus. No significant cardiac arrhythmias and the patient is currently on Oral amiodarone 200 mg p.o. daily and the patient was also started on metoprolol 12.5 mg p.o. twice a day. Hypotension, multifactorial. The patient has severe cardiomyopathy in addition to intravascular volume depletion probably due to diarrhea and diuresis. The patient was given a total of 1.5 L of bolus with lactated Ringer and the p atient's blood pressure has normalized and the patient is currently off pressors. Urine output is also improved. Fluid balance is positive. Diarrhea, stool for C. difficile has been negative and the patient remains on enteral feeding for nutritional support Cardiomyopathy, EF 20 to 25%, nonischemic, possible Takotsubo, repeat echo 30- 35% Acute pulmonary edema with secondary acute hypoxic respiratory failure and subsequent V. tach induced cardiac arrest, improved and the patient's oxygenatio n is also improved while being on the mechanical ventilator. Acute hypoxic respiratory failure, remains intubated on mechanical ventilator, multifactorial. This occurred secondary to CHF and pulmonary edema subsequently patient developed a left-sided pneumothorax treated with a Thora vent. The le ft-sided pneumothorax has recovered and the Thora vent was removed on 01/07/2025 and a repeat chest x-ray from today shows no evidence of any pneumothorax Left pneumothorax, S/P Thora vent placement. The Thora vent was removed on 01/07/2025 and the follow-up chest x-ray shows no evidence of any pneumothorax Acute kidney injury, likely secondary to diarrhea intravascular depletion, responded to IV fluids and the creatinine is improved compared to yesterday History of chronic pancreatitis. Hyperammonemia, improved and the repeat ammonia level is down to 10 chronic alcohol abuse and alcoholic liver disease History of splenic vein thrombosis. History of syncope. History of chronic diarrhea. Lactic acidosis. Hypocalcemia, treated Hypomagnesemia, treated Leukocytosis with ongoing rise in the white cell count. Patient is on broad- spectrum antibiotics including a combination of Zosyn, daptomycin and Diflucan. Patient is also running a low-grade fever. Chronic cholecystitis Plan: Continue ventilator support. No ventilator changes for today. Hemodynamically stable on no pressors Keep the patient sedated on propofol, will give another sedation holiday. No previous holidays, the patient demonstrated adequate mental status on awakening. Will try to remove the propofol and use Precedex if needed. Will assess the patient's mental status. Amiodarone 200 mg p.o. daily metoprolol 12.5 mg p.o. twice a day Cardiac rhythm is sinus Monitor white cell count and fever Continue broad-spectrum antibiotics and the patient is currently combination of Zosyn Flagyl and Diflucan and daptomycin monitor diarrhea and stool for C. difficile has been negative Continue enteral feeding for nutritional support and the patient is currently receiving [employer] at a rate of 40 cc an hour Will continue to monitor the progress and make further recommendations based on his condition. This evaluation was done in 33 minutes. Time with Patient: Greater than 30
[2025-01-08] MEDS: DEXMEDETOMIDINE/0.9% NACL(PMX) 400 MCG in EMPTY BAG 1 BAG IV SCH (16:53)
[2025-01-08] MEDS: HYDROmorphone 1 MG/ML 1 ML SYRINGE IVP STA (17:39)
[2025-01-08 17:44] LABS: Glucose,Whole Blood 81 mg/dL (70-110)
[2025-01-08] MEDS: CALCIUM CHLORIDE 100 MG/ML 10 ML SYRINGE IVP ONE (19:55)
--- NOTE | 2025-01-09 00:15 | P.PN ---
Subjective Progress Note Date: 01/08/25 This is a pleasant 44-year-old male who was recently admitted after brief cardiac arrest with multiple electrolyte abnormalities being closely monitored. Patient being followed by cardiology and is status post cardiac catheterization recommending maximizing medical management and normal coronary arteries noted. Patient reports to having increasing pain and also generalized weakness although reports will be going home on discharge. Patient did have an elevated white count that had been trending down although is slightly up today with infectious disease following and will repeat CT abdomen for further evaluation. Continue current antibiotics at this time. Case management is following as plan is for LifeVest on discharge. Recommend incentive spirometer as patient is requiring oxygen and may require oxygen on discharge. Will reattempt home oxygen evaluation. Encourage increase activity as tolerated with sitting up out of the bed more frequently. Labs reviewed and white count is 25.52, hemoglobin is 8.8, platelets 446, sodium 137 with a potassium of 3.5, BUN is 5 and creatinine 0.33. Calcium is slightly low at 6.2, total bili is 1.4. 12/31/2024 Patient is seen in follow-up with multiple consultations following. White count was elevated although slightly improving with infectious disease following we will continue current regimen at this time. Patient continues to report short ness of breath and generalized pain and continues to require oxygen. Will need home O2 assessment. Patient underwent CT abdomen and will consult general surgery for evaluation. Encouraged increased activity as tolerated with sitting up more frequently in the chair. 01/01/2025 Patient seen and evaluated this morning currently scheduled to undergo HIDA scan per general surgery and patient is currently requesting increase in pain medications as she reports diffuse pain. Pain medications through the IV are currently on hold as patient will be undergoing HIDA scan. Patient's white count is elevated with infectious disease following maintained on Zosyn and will continue. Patient is afebrile with no reports of chest pain or palpitations. Patient is reporting some congestion and occasional shortness of breath. Will order chest x-ray as well. Continue DuoNeb treatments and supplemental oxygen as needed. Patient currently maintained on 5 L. Would recommend PT/OT therapy evaluation as patient has had prolonged cough elevation and appears frail and extremely weak. 01/02/2025 Patient is seen in follow-up was a CODE BLUE on 3 S. and was transferred to ICU intubated for respiratory arrest with cardiac arrest and ROSC received. Patient remains a full code per sister and will continue on mechanical ventilation with an FiO2 of 100% and PEEP of 10 currently. Blood pressures are soft and patient is maintained on pressor support and hemoglobin was noted to be 6.9 this morning and will give 1 unit of PRBC. White count remains elevated at 24.18 and maintained on antibiotics with infectious disease following. Sodium is 141 with a potassium of 3.0, creatinine 0.48, blood sugars elevated, lactic acid 5.1 with a calcium that is low at 5.6, magnesium 1.2. Prognosis remains extremely guarded and CODE STATUS needs to be addressed again. 01/03/2025 Patient is seen in follow-up in the ICU maintained on mechanical ventilation and FiO2 was adjusted per pulmonary editor sound but FiO2 is currently 60%. Patient maintained on pressor support including Levophed and vasopressin and also receiving Lasix. Blood sugars have been elevated and will adjust insulins accordingly including increasing long-acting. Patient is continued on tube feeds and will continue at this time. Per nursing staff patient did require Chris hugger for some time for hypothermia. Hemoglobin is stable at 8.3 status post 1 unit of PRBC, white count remains elevated at 19.68, sodium is 134 and potassium was again 2.9 with replacement of 3.5 and continued on protocol creatinine is stable at 0.63. Preliminary sputum culture from 12/31/2024 showing yeast species. 01/04/2025 Patient is seen in follow-up continues to be in the ICU on mechanical ventilation with multiple consultations following. FiO2 is 60% and patient is continued on low-dose pressor and support, Levophed has been discontinued and p atient has been weaned off fentanyl and patient is not on Versed at this time. Patient continues on sedation with propofol and per nursing staff will undergo sedation trials to assess mentation. Patient is continued on antibiotics and will continue with infectious disease following. Blood sugars have been on the lower side and tube feedings have been started and tolerating thus far working on goal and will discontinue long-acting insulin and monitor closely with just Accu-Cheks and sliding scale for now. Prognosis remains extremely guarded and patient remains full code per family at this time. White count remains elevated at 23.15, hemoglobin is stable at 9.0 with no active bleeding noted, platelets are 319, sodium is 134 with a potassium of 3.8, BUN is 5 and creatinine is 0.79. Magnesium is 1.6 and receiving replacement. 01/05/2025 Patient is seen in follow-up today maintained on mechanical ventilation with no plans of weaning today continues on low-dose Levophed and other pressor support being weaned. Per nursing staff patient's blood pressures were extremely low overnight requiring reinitiation of the Levophed which is currently being weaned as tolerated. Patient is maintained on mechanical ventilation with an FiO2 of 40% PEEP is at 10. Patient remains full code and will attempt to contact family to discuss treatment plan and overall prognosis. Patient continues with Pleurx catheter in the left chest wall with no leak noted recommending to continue for another 24 hours as there was a noted tiny pneumothorax on the left on imaging. Per nursing staff patient is experiencing a mild rectal prolapse and would recommend keeping the area moist and lubricated as much as possible. Patient continues to have loose stools and is maintained on antibiotics with infectious disease following. 01/06/2025 Patient is seen in follow-up continues in the ICU on mechanical ventilation with an FiO2 of 40% PEEP is being adjusted to 6 per pulmonary editor sound cleared no plans of weaning at this time recommending initiating small sedation trials to assess mentation. Patient has been weaned off pressor support with medications being adjusted and cardiology following. Patient continues with Thora vent on the left and per editor sound will be capped with possible removal in the next 24 hours as chest x-ray reveals a tiny pneumothorax that is stable. Patient continues on IV Lasix and will continue as patient is extremely edematous in upper and lower extremities. Patient continues on IV antibiotics in the form of Zosyn and Flagyl and also Diflucan and will continue with infectious disease following. Repeat cultures are pending at this time and patient remains afeb rile. 01/07/2025 Patient is seen in follow-up continues on mechanical ventilation with an FiO2 of 40% and PEEP of 6. Per nursing staff patient did become more hypotensive and tachycardic requiring Levophed to be resumed and currently on hold as blood pressures have improved and will continue to wean as tolerated. Patient continues with significant volume overload and is maintained on IV Lasix daily. Patient continues to have an elevated white count with worsening and also having increased fevers with infectious disease following and will add daptomycin and repeat cultures. Patient remains sedated at this time with no plans of weaning. Pulmonary editor sound following closely. Thora vent on the left is being removed and will follow-up with repeat chest x-rays. 01/08/2025 Patient seen in follow-up continues to be on mechanical ventilation with no vent changes today maintained on FiO2 of 40% and PEEP of 6. Per nursing staff patient underwent sedation holiday this morning although breathing rapidly with respirations of 30 to 40/min and was placed back on propofol. Discussion of we aning propofol and attempting Precedex with sedation holidays. Patient is off pressor support at this time and will monitor closely. White count is elevated at 33 and having low-grade temps maintained on daptomycin and Zosyn with infectious disease following closely. Per nursing staff patient is having multiple episodes of loose stools most likely secondary to tube feeds. C. difficile has been negative and will add as needed Imodium. WBC is 33.42, hemoglobin 8.6, platelets are 280, potassium was 3.3 and replaced and follow-up is 4.4, sodium is 141, BUN is 27 with a creatinine of 1.11. Blood sugars being monitored closely and will adjust accordingly Review of systems: Unable to assess as patient is intubated and sedated All medications have been reviewed PHYSICAL EXAMINATION: GENERAL: The patient is alert and oriented x0, continued on mechanical vent with an FiO2 of 40 % and PEEP is 6. Well developed, elderly appearing, thin built, cachectic, chronically ill-appearing HEENT: Pupils are round and equally reacting to light. EOMI. no scleral icterus. No conjunctival pallor. Normocephalic, atraumatic. No pharyngeal erythema. No thyromegaly. CARDIOVASCULAR: S1 and S2 muffled PULMONARY: diminished breath sounds bilaterally with no wheezing, scattered coarse rhonchi noted with upper bronchial congestion. Crackles noted at the bases ABDOMEN: soft. Nontender on exam. Thin non-distended, normoactive bowel sounds. No palpable organomegaly. MUSCULOSKELETAL: No joint swelling or deformity. EXTREMITIES: No cyanosis, clubbing, or pedal edema. Bilateral upper extremities edematous NEUROLOGICAL: Gross neurological examination did not reveal any focal deficits. Unable to completely assess as patient is sedated and on mechanical ventilation SKIN: No rashes. Extremely pale Assessment: Cardiac arrest, possibly secondary to ventricular tachycardia secondary to mult iple electrolyte abnormalities Respiratory arrest with cardiac arrest requiring mechanical ventilation 01/01/2025 likely secondary to V. tach Severe hypokalemia, hypomagnesemia, hypocalcemia, improving after replacement, continue to monitor closely History of EtOH Nonischemic cardiomyopathy possible Takotsubo, EF was 20 to 25%, repeat is 30- 35, continued on LifeVest Possible acute colitis as noted on imaging Continued ongoing diarrhea, C. difficile was negative as well as tube feeds Diabetes mellitus, type II, uncontrolled with hyperglycemia History of pancreatitis Tachycardia Anemia, chronic, hemoglobin stable above 8 today Concerns of possible right lower lobe pneumonia, possibly aspiration History of splenic vein thrombosis, was on Eliquis Hepatic encephalopathy Moderate protein calorie malnutrition with a BMI of 17.7 GI prophylaxis DVT prophylaxis Full code Plan: Recommend to continue with current medications and management with multiple consultations following. Patient remains in the ICU on mechanical ventilation and FiO2 is 40% and PEEP is being adjusted to 6 per pulmonary editor sound. Undergoing sedation trials with no plans of weaning at this time. Will attempt to wean propofol and use Precedex Patient had respiratory arrest with cardiac arrest on 01/01/2025 and was placed on mechanical ventilation. Pressor supports on hold today infectious disease following as white count remains elevated although worsening at 33 and patient is maintained on antibiotics in the form of Zosyn and and has added daptomycin per ID recommendations. General surgery following as there was concern of cholecystitis with discussion of possible surgical intervention although no plans for intervention at this time Cardiology following and patient is status post catheterization recommending maximizing medical management and case management following and has received LifeVest. Patient does currently have LifeVest on. Patient has transition to oral amiodarone off amiodarone drip Patient continues to have multiple loose stools nursing staff and C. difficile testing has been negative, likely secondary to tube feeds and continued antibiotics, will add Imodium as needed Continue monitoring Accu-Cheks AC and at bedtime and adjust accordingly. Blood sugars have been on the lower side and will hold long-acting and continue with just sliding scale for now Follow-up on repeat labs and replace electrolytes per protocol. Replace potassium and magnesium per protocol Per nursing staff sister reports patient is full code and to remain full code per family. CODE STATUS needs to be readdressed and overall prognosis is extremely poor and guarded at this time The impression and plan of care has been dictated by Ana Duggan, Nurse Practitioner as directed. Dr. Koby MD I have performed a history and examination and MDM of this patient, discussed the same with the dictator, and agree with the dictator's assessment and plan as written ,documented as a scribe. Based on total visit time, I have performed more than 50% of the visit. Objective - Vital Signs Vital signs: Vital Signs Temp 99.5 F 01/08/25 22:00 Pulse 87 01/08/25 22:00 Resp 16 01/08/25 22:00 BP 112/81 01/07/25 08:00 Pulse Ox 100 01/08/25 22:00 FiO2 40 01/08/25 22:00 Intake & Output 01/08/25 01/08/25 01/09/25 06:59 18:59 06:59 Intake Total 5354.056 8689.200 371.504 Output Total 355 925 140 Balance 688.608 796.200 231.504 Weight 61.8 kg 61.8 kg Intake: IV 313 632 139 .9NS KVO 280 290 30 .9NS Pressure Bag 33 42 9 Piperacillin-Tazobactam 3 300 100 .375 gm In Sodium Chloride 0.9% 100 ml @ 25 mls/hr IVPB Q8HR [facility]AD Rx# :[id number] Intake, IV Titration 160.608 269.200 22.504 Amount DAPTOmycin 400 mg In 50 Sodium Chloride 0.9% 50 ml @ 100 mls/hr IVPB Q24HR VLAD Rx#:[id number] Dexmedetomidine/0.9% NaCl 1.313 (Pmx) 400 mcg In Empty Bag 1 bag @ 0.2 MCG/KG/HR 3.09 mls/hr IV .Q24H [facility]AD Rx#:[id number] Norepinephrine 8 mg In 1.646 36.209 Sodium Chloride 0.9% 250 ml @ 0.03 MCG/KG/MIN 3. 291 mls/hr IV .Q24H [facility]AD Rx#:[id number] propofoL 1,000 mg In 158.962 181.678 22.504 Empty Bag 1 bag @ 15 MCG/ KG/MIN 4.788 mls/hr IV . [id number] [facility]AD Rx#:[id number] Oral 0 Tube Feeding 480 820 150 Other 90 60 Output: Urine 355 925 140 Other: Voiding Method Indwelling Catheter Indwelling Catheter Indwelling Catheter # Voids 1 # Bowel Movements 1 1 ABP, PAP, CO, CI - Last Documented Arterial Blood Pressure 123/75 - Labs CBC & Chem 7: 01/08/25 05:00 01/08/25 12:55 Labs: Abnormal Lab Results - Last 24 Hours (Table) 01/08/25 01/08/25 01/08/25 Range/Units 04:52 04:57 05:00 WBC 33.42 H (4.50-10.00) 10*3/uL RBC 2.78 L (4.40-5.60) 10*6/uL Hgb 8.6 L (13.0-17.0) g/dL Hct 27.1 L (39.6-50.0) % MCV 97.5 H (80.0-97.0) fL MCHC 31.7 L (32.0-37.0) g/dL ABG pH 7.48 H (7.35-7.45) ABG pCO2 34 L (35-45) mmHg ABG HCO3 26 H (21-25) mmol/L ABG Total CO2 27 H (19-24) mmol/L ABG O2 Saturation 97.5 H (94-97) % Hemoglobin 8.9 L (13.0-17.5) gm/dL Potassium (3.5-5.1) mmol/L Chloride (98-107) mmol/L BUN (9-20) mg/dL Glucose (74-99) mg/dL POC Glucose (mg/dL) 201 H (70-110) mg/dL Calcium (8.4-10.2) mg/dL 01/08/25 01/08/25 Range/Units 05:00 12:06 WBC (4.50-10.00) 10*3/uL RBC (4.40-5.60) 10*6/uL Hgb (13.0-17.0) g/dL Hct (39.6-50.0) % MCV (80.0-97.0) fL MCHC (32.0-37.0) g/dL ABG pH (7.35-7.45) ABG pCO2 (35-45) mmHg ABG HCO3 (21-25) mmol/L ABG Total CO2 (19-24) mmol/L ABG O2 Saturation (94-97) % Hemoglobin (13.0-17.5) gm/dL Potassium 3.3 L (3.5-5.1) mmol/L Chloride 108 H (98-107) mmol/L BUN 27 H (9-20) mg/dL Glucose 171 H (74-99) mg/dL POC Glucose (mg/dL) 207 H (70-110) mg/dL Calcium 7.7 L (8.4-10.2) mg/dL Microbiology - Last 24 Hours (Table) 01/07/25 10:24 Blood Culture - Preliminary Blood 01/04/25 12:04 Stool Culture - Final Stool 01/02/25 16:07 Blood Culture - Final Blood
[2025-01-09 00:53] LABS: Glucose,Whole Blood 199 mg/dL (70-110)
[2025-01-09 05:11] LABS: HCT 25.4 % (39.6-50.0); HGB 7.8 g/dL (13.0-17.0); MCH 30.4 pg (27.0-32.0); MCHC 30.7 g/dL (32.0-37.0); MCV 98.8 fL (80.0-97.0); Platelet Count 346 10*3/uL (140-440); RBC 2.57 10*6/uL (4.40-5.60); RDW 21.3 % (11.5-14.5); WBC 35.39 10*3/uL (4.50-10.00)
[2025-01-09 05:21] LABS: ABG HCO3 25 mmol/L (21-25); ABG PCO2 33 mmHg (35-45); ABG PH 7.49 (7.35-7.45); ABG PO2 124 mmHg (83-108); ABG TCO2 26 mmol/L (19-24)
[2025-01-09 05:22] LABS: Allen Test Performed? No
[2025-01-09 05:24] LABS: African American GFR (CKD) >90 (>60 ml/min/1.73 sqM); Anion Gap 14 mmol/L; Blood Urea Nitrogen 30 mg/dL (9-20); Calcium 7.8 mg/dL (8.4-10.2); Carbon Dioxide 18 mmol/L (22-30); Chloride 110 mmol/L (98-107); Glucose 152 mg/dL (74-99); Magnesium 1.6 mg/dL (1.6-2.3); Non-African American GFR(CKD) 84 (>60 ml/min/1.73 sqM); Potassium 3.7 mmol/L (3.5-5.1); Sodium 142 mmol/L (137-145)
[2025-01-09] MEDS ORDERED: Magnesium Replacement Protocol 1 EACH MISC MISCELLANE PRN (06:30)
[2025-01-09] MEDS ORDERED: Potassium Replacement Protocol 1 EACH MISC MISCELLANE PRN (06:30)
[2025-01-09 06:35] LABS: Glucose,Whole Blood 175 mg/dL (70-110)
[2025-01-09] MEDS: POTASSIUM BICARBONATE/CIT AC 20 MEQ TABLET.EFF NG-TUBE SCH (06:38)
[2025-01-09] MEDS: MAGNESIUM SULFATE-D5W PMX 1 GM in DEXTROSE/WATER 1 100ML.BAG IVPB SCH (06:38)
--- NOTE | 2025-01-09 07:31 | XR ---
EXAMINATION TYPE: XR chest 1V portable DATE OF EXAM: 01/09/2025 4:40 AM COMPARISON: None. CLINICAL INDICATION: Male, 44 years old with history of respiratory failure, TECHNIQUE: XR chest 1V portable view(s) obtained. FINDINGS: The heart size is normal. The pulmonary vasculature is normal. The lungs are clear. Left diaphragm is not identified. Endotracheal tube tip is 5.9 cm above the yoli. Nasogastric tube transverses the thorax. Right cent ral venous catheter tip is in the proximal right atrium. IMPRESSION: 1. No acute pulmonary process. 2. Multiple lines and catheters discussed above [facility], , 01/09/2025 7:29 AM
[2025-01-09] MEDS: LOPERAMIDE 2 MG CAP PO PRN (08:54)
[2025-01-09 11:21] LABS: Glucose,Whole Blood 149 mg/dL (70-110)
--- NOTE | 2025-01-09 15:26 | P.PN ---
Subjective Progress Note Date: 01/09/25 Cardiopulmonary arrest. This is a 44-year-old white male brought into the emergency room earlier this mo rning by EMS with altered mental status and seizure-like activity. Apparently the patient is known to have past medical history of alcohol use, chronic pancreatitis, pancreatic pseudocyst, history of hypertension, previous history of TIA, patient had a sudden feeling of dizziness, and asked his roommate to call EMS. Apparently upon arrival of EMS he was found to have seizure-like activity and went unresponsive on the monitor the patient was noted to have ventricular tachycardia, CPR was started and the patient received 1 shock. Patient became conscious again, and his rhythm came back with return of circulation. Apparently for the last few days the patient has been experiencing episodes of nausea and vomiting and episodes of low blood sugar. In addition, patient has been complaining of episodes of diarrhea for the last 2 weeks. Patient normally follows up at [facility] for his pancreatitis and pseudocyst. He is also known to have history of splenic vein thrombosis, maint ained on anticoagulation. And has been taking Eliquis until yesterday. Patient drinks occasionally at this point, used to be a heavy drinker in the past. I evaluated the patient in the ER, and considering his cardiac arrest history, I recommended admitting the patient to the ICU, and he is to be seen by other consultants including cardiology. During my evaluation the patient was not in any distress, he was hemodynamically stable, all his labs were reviewed. Patient was seen today on 12/25/2024, remains in the ICU mostly because of his profound electrolyte abnormalities including hypocalcemia, hypomagnesium , hypokalemia, these are all being addressed accordingly mostly related to his GI symptoms and his pancreatitis. As well as diarrhea and nausea and vomiting. Patient is not in any distress, he is on 2 L nasal cannula, has been receiving potassium almost every 2 hours 20 mEq orally remains empirically on Zosyn, continues to have some vague abdominal pain and discomfort. WBC count today is 12.2 hemoglobin 9.5 electrolytes showed low sodium of 131 low potassium 2.9 but few hours later it was up to 3.8 renal functioning is normal calcium is up to 5.8 today. Add magnesium is up to 2.1, these are all being addressed daily. Cardiac sheppard the patient is in sinus rhythm, no further episodes of tachyarrhythmia. Seen today on 12/26/2024, patient remains in the ICU, feeling better, he has no active pulmonary symptoms no GI symptoms and no cardiac symptoms. Labs have shown significant improvement his potassium today is 4.5 calcium is up to 6 however his albumin is 1.9 which makes his corrected calcium 7.68., Improved, but not up to 8.4 or higher. Hence would recommend more calcium gluconate to be given for this patient. Magnesium not done today however was 2.1 yesterday. Seen today on 12/27/2024, patient is doing well, asymptomatic. Has some vague abdominal pain no cough no wheezing no shortness of breath no chest pain. No palpitations CBC showed leukocytosis WBC count of 15.9 hemoglobin 8.8. His electrolytes are normal potassium is 3.8 calcium is up to 6.8/uncorrected to albumin. 01/02/25 - He was seen and examined in the ICU, room 258. He was previously seen by pulmonary/critical care up until 12/27/2024, at which time we signed off care. Since that time, on 12/30/2024 he underwent a cardiac catheterization with Dr. Rosario which revealed normal coronary arteries, cardiomyopathy of nonischemic etiology. He was being followed by infectious disease due to possible colitis, and had been placed on antibiotics, general surgery for exploratory laparotomy in regards to cholecystitis and colitis. Late in the evening on 01/01/2025 a CODE BLUE was called in which the patient had diminished breath sounds and was tachypneic. He became bradycardic and then went asystole, at which time CPR was initiated. CODE BLUE as per the event note in the patient's chart. ROSC was achieved with 2 rounds of epinephrine. At that time patient was intubated, transferred to the ICU and initiated on a bicarb drip. He was noted to have pneumothorax of the left lung. He was intubated on 01/01/2025 and has not been mechanically ventilated with a tidal volume 400, respiratory rate 22, FiO2 100% and PEEP of 10. Most recent blood gas showed pO2 66, pCO2 45 and pH 7.37. Most recent labs showed WBCs 27.2, hemoglobin 6.9, hematocrit 21.8, platelet 339; sodium 141, potassium 2.6, bicarb 20, BUN <2, creatinine 0.48, lactic acid 11.7, calcium 5.6, ionized calcium 3.4, magnesium 1.2, total bilirubin 1.2, AST 99, ALT 29, alkaline phosphatase 183, TSH 0.551. He is currently receiving norepinephrine 0.39 mcg/kg/min, and sedated with fentanyl at 1 mcg/kg/h, propofol at 50 mcg/kg/h, and received an additional 10 mg of Nimbex prior to left radial arterial line placement. He continues receiving vancomycin, Zosyn, Flagyl and Diflucan. Progress note dated January 03, 2025. This is a 44-year-old male seen in room 258. He remains on mechanical ventilator. He is on volume assist-control, rate 22, tidal volume 400, FiO2 70%, PEEP of 10. Blood gases show pO2 123, pCO2 50, pH of 7.46. He has a left Thora vent in place. He is on fentanyl at 1.5 mcg/kg/h, D5W with 3 ampoules of sodium bicarbonate at 150 cc an hour, propofol at 50 mcg/kg/min, saline at 30 cc an hour, norepinephrine at 6 mcg/min, and vasopressin at 0.03 units/min. Sodium bicarbonate drip can be discontinued. The patient is currently also on fluconazole, Flagyl, vancomycin, and Zosyn. Current labs include a white count of 19.7, hemoglobin 8.3, hematocrit 25, and platelet count 304,000. Sodium 134, potassium 2.9, chloride 94, CO2 35, BUN 2, creatinine 0.63. Calcium is 5.3, and ionized calcium is low at 3.4. Albumin is 1.4. Cultures thus far are negative, save for the sputum showing evidence of yeast. Chest x-ray shows the left lung to be expanded, with a very tiny pneumothorax. There is diffuse changes throughout, largely unchanged. Progress note dated January 04, 2025. 44-year-old male seen today in room 258. He continues on volume assist-control, rate 22, tidal volume 400, 60% FiO2, PEEP of 10. Blood gases show pO2 of 93, pCO2 50, pH of 7.49. Is currently on propofol at 40 mcg/kg/min, vasopressin at 0.02 units/min, saline at 40 cc an hour, and tube feedings, at 21 cc an hour, which is goal. He continues on Diflucan, Flagyl, and Zosyn. White count is 23.2, hemoglobin 9, hematocrit 26.7, and platelet count is 319,000. Sodium 134, potassium 3.8, chloride 92, CO2 37, BUN is 5, with creatinine 0.79. Glucose 196. Calcium 6.5. Magnesium 1.6. Tiny apical left pneumothorax. Thora vent device is still noted. On 01/05/2025, the patient is being seen for a follow-up. This morning, the patient remains intubated on a mechanical ventilator. The patient is on propo fol running at 40 mcg/kg/min. Earlier this morning, the patient was noted to be slightly hypotensive and started on norepinephrine which is currently running at low-dose of 0.01 mcg/kg/min. Nevertheless, the dose needs to be adjusted as the patient continues to have and run a low blood pressure. He remains on the mechanical ventilator assist-control mode rate of 22, tidal volume of 400, FiO2 50% with a PEEP of 10. Fluid balance is -2.1 L over the past 24 hours. His cardiac rhythm is sinus. He is covered with broad-spectrum antibiotics and the patient is currently on a combination of Zosyn and Flagyl and Diflucan and he remains on IV Lasix. He is also on tube feeds and the patient is using [employer] 1.4 at a rate of 21 cc an hour. The blood work from today shows a WBC count of 17.8 with a hemoglobin of 9.8 and a platelet count of 272. Blood gas showed a pH of 7.53 with a [id number] and PO2 of 191. BUN is 10 with a creatinine of 1.03 and electrolytes show a sodium level of 135, serum bicarb is at 37. No other significant events overnight. As stated earlier, the patient has non ischemic cardiomyopathy. A outpatient cardiac arrest related to V. tach and another cardiac arrest on 01/02/2025 with development of acute pulmonary edema. During the resuscitation and post CPR, he also developed a left-sided pneumothorax. Chest x-ray from today shows ongoing pulmonary edema. Pne umothorax has recovered. No evidence of any air leak and the patient has a Thora vent over the left anterior chest. On 01/06/2025, the patient is being seen for a follow-up. This morning, the breann ent remains intubated on the mechanical ventilator. He is on propofol which was at 40 mcg and this was dropped down to 30 mcg/kg/min. The patient is currently off pressors. IV fluids are currently at KVO and the fluid balance is -2.1 L over the past 24 hours and the patient received Lasix 40 mg IV every 12 hours. The patient is on assist-control mode of mechanical ventilation at rate of 22, tidal volume of 400, FiO2 40% with a PEEP of 8. Blood gas showed a pH of 7.54 with a [id number] and PO2 of 87. The follow-up chest x-ray from today is showing minimal left apical pneumothorax, Thora vent is still in place. Multiple lines and catheters are still in place and the patient has a left lower lobe pulmonary infiltrate. Findings are essentially stable compared to yesterday. Rest of the labs show a white cell count of 20 with a hemoglobin of 10.3 and a platelet count of 282. The blood gas showed a pH of 7.54 with a PCO2 of 41 and PO2 of 87. Sodium level is at 139 with a potassium level of 4.6, BUN 16 with a creatinine of 1.1. Calcium levels at 7.8. Stool for C. difficile has been negative. The patient is currently on Zosyn and Diflucan. Norepinephrine has been discontinued and the patient remains on IV Lasix with excellent urine output. A sedation holiday is to be given today. The Thora vent is to be capped. 01/08/2020 time, the patient is being seen for a follow-up. The patient remains on propofol running at 40 mcg/kg/min. He remains intubated on the mechanical ventilator. He is on assist-control at rate of 22, tidal volume of 400, 30 to 40% with a PEEP of 6. Blood gas showed a pH of 7.52 with a [id number] and PO2 of 87. His fluid balance is +1.6 L. However, it is not an accurate measurement as the patient is having profuse diarrhea and he seems to be more so intravascularly depleted and the patient is currently on low-dose norepinephrine running at 0.04 mcg/kg/min. He remains on [employer] at rate of 40 cc an hour. Cardiac rhythm is sinus at this point. IV fluids are currently at KVO. Broad- spectrum antibiotics are in the form of daptomycin and Zosyn and Diflucan. ID is on the case managing his antibiotics. There was concern of a chronic cholecy stitis. Nevertheless, LFTs are normal and the patient has no signs or symptoms of an acute cholecystitis based on clinical evaluation and ultrasound imaging. The patient's sodium levels at 141 with a potassium level of 4.7, chlorides 105 with a bicarb of 27. BUN is 22 with a creatinine of 1.23. He has sustained an acute kidney injury as the patient's baseline creatinine was at 0.6 from few day s back. White cell count remains elevated at 26.2 with a heme of 8.8 and a platelet count of 252. As such, there is a drop in hemoglobin compared to yesterday. Chest x-ray was also reviewed and it shows atelectatic changes and possibly a small effusion in the left lung base. All of the catheters are in good location. No significant cardiac arrhythmias and the patient has been taken off the IV amiodarone drip and the patient is currently on oral amiodarone at a dose of 200 mg p.o. daily. On a separate note, the chest x-ray from today shows no evidence of any pneumothorax. Thora vent has been capped for the past 24 hours. 01/08/2025, the patient is being seen for a follow-up. The patient this morning is on propofol running at 40 mcg/kg/min. Remains on a mechanical ventilator, assist-control mode rate of 22, tidal volume of 400, FiO2 40% with a PEEP of 6. Blood gas showed pH of 7.48 with a PCO2 of 34 and PO2 of 89. Chest x-ray shows adequate expansion of both lungs. No acute airspace disease or consolidation is noted. The patient did have some hypotension and acute kidney injury on yesterday's evaluation. Based on that, the patient was given a total of 1.5 L of bolus of lactated Ringer. Fluid balance is +2.6 L over the past 24 hours. The patient is currently off pressors. He is having limited diarrhea. IV fluids are currently at KVO. He is receiving enteral feeding Curriculet at a rate of 40 cc an hour. No abdominal distention. No fever. No cardiac arrhythm ias and the cardiac rhythm remains sinus. The white cell count is higher compared to yesterday. The white cell count is currently up to 33 with a hemoglobin of 8.6 and a platelet count of 280. The sodium is at 141, potassium is at 4.4, BUN 27 with a creatinine of 1.1. Stool for C. difficile has been negative. He is running a low-grade temperature of 100.0. He is currently on a combination of Zosyn, daptomycin and Diflucan. He remains on amiodarone 200 mg p.o. daily. He is receiving Lasix 40 mg IV every 24 hours. He remains on metoprolol 12.5 mg p.o. twice a day. He is also on midodrine. No pressors for now. On 01/09/2025, patient is being seen for a follow-up. The patient remains on propofol running at 50 mcg/kg/min. The patient was given a sedation holiday yesterday and he was taken off the propofol. He had significant tachypnea and respiratory distress and some degree of agitation. The patient was trialed on Precedex and he failed and based on it, the patient was placed back on propofol. This morning, he seems to be calm and comfortable and arousable. Will do a gra dual wean of his propofol. Meanwhile, he remains on mechanical ventilator, assist-control mode at rate of 22, tidal volume of 400, FiO2 40% with a PEEP of 6. Blood gas showed a pH of 7.49 with a [id number] and PO2 124. The patient remains on enteral feeding for nutritional support, [employer] at rate of 50 cc an hour. Fluid balance is +1.7 L and the patient continues to have diarrhea with his negative stool for C. difficile. The patient remains on Lasix 40 mg IV every 24 hours. On today's blood work, the patient's white cell count is 35.3 with a hemoglobin 7.8 and a platelet count of 346. Sodium levels at 142, BUN 30 creatinine of 1.06. Serum bicarb is 18 with a gap of 14. Ammonia level is at 51. Blood sugar is at 149. Antibiotic coverage remains unchanged and the patient remains on the combination of Zosyn and daptomycin and Diflucan. Remains on amiodarone 200 mg p.o. daily. Remains on metoprolol 12.5 mg p.o. twice daily and the patient is not having any significant cardiac arrhythmias. He is currently afebrile. Tmax over the past 24 hours was 100 degrees. Objective - Vital Signs Vital signs: Vital Signs Temp 98.7 F 01/09/25 06:00 Pulse 110 H 01/09/25 08:27 Resp 19 01/09/25 07:00 BP 112/81 01/07/25 08:00 Pulse Ox 99 01/09/25 07:00 FiO2 40 01/09/25 08:14 Intake & Output 01/08/25 01/09/25 01/09/25 18:59 06:59 18:59 Intake Total 4459.707 3886.230 239.860 Output Total 925 485 50 Balance 796.200 977.230 189.860 Weight 61.8 kg 61.1 kg Intake: IV 632 433 23 .9NS KVO 290 200 20 .9NS Pressure Bag 42 33 3 Piperacillin-Tazobactam 3 300 200 .375 gm In Sodium Chloride 0.9% 100 ml @ 25 mls/hr IVPB Q8HR [facility]AD Rx# :[id number] Intake, IV Titration 269.200 359.230 136.860 Amount DAPTOmycin 400 mg In 50 Sodium Chloride 0.9% 50 ml @ 100 mls/hr IVPB Q24HR [facility]AD Rx#:[id number] Dexmedetomidine/0.9% NaCl 1.313 (Pmx) 400 mcg In Empty Bag 1 bag @ 0.2 MCG/KG/HR 3.09 mls/hr IV .Q24H [facility]AD Rx#:[id number] Magnesium Sulfate-D5w Pmx 100 1 gm In Dextrose/Water 1 100ml.bag @ 100 mls/hr IVPB Q1H [facility]AD Rx#: [id number] Norepinephrine 8 mg In 36.209 211.200 19.932 Sodium Chloride 0.9% 250 ml @ 0.03 MCG/KG/MIN 3. 291 mls/hr IV .Q24H [facility]AD Rx#:[id number] propofoL 1,000 mg In 181.678 148.030 16.928 Empty Bag 1 bag @ 15 MCG/ KG/MIN 4.788 mls/hr IV . [id number] [facility]AD Rx#:[id number] Oral 0 Tube Feeding 820 550 50 Other 120 30 Output: Urine 925 485 50 Other: Voiding Method Indwelling Catheter Indwelling Catheter # Voids 1 # Bowel Movements 1 1 ABP, PAP, CO, CI - Last Documented Arterial Blood Pressure 130/82 - Exam No acute distress, sedated, with an orally placed endotracheal tube. Sedated and the patient is calm comfortable. The patient is currently on propofol HEENT examination is grossly unremarkable. Mucous membranes are moist. No oral lesions. Neck supple. Full range of motion. No adenopathy thyromegaly or neck vein distention. Cardiovascular examination reveals regular rhythm rate. S1-S2 normal. No S3 or S4. No discernible murmur noted. Heart sounds are distant. The patient is currently wearing a LifeVest. Lungs reveal scattered bilateral mild to moderate rhonchorous breath sounds. No wheezes. No crackles. Breath sounds equal bilaterally. The patient has a Thora vent over the left anterior chest area. Breath sounds are equal and symmetrical bilaterally. Abdomen soft without bowel sounds. No masses or tenderness. Extremities are intact. No cyanosis clubbing and there is trace edema lower extremities bilaterally and some in the upper extremities. Skin is without rash or lesion. Neurologic examination cannot be evaluated at this time. The patient is sedated and the patient is calm and comfortable secondary to the mechanical ventilator. - Labs CBC & Chem 7: 01/09/25 05:00 01/09/25 05:00 Labs: Abnormal Lab Results - Last 24 Hours (Table) 01/08/25 01/09/25 01/09/25 Range/Units 12:06 00:52 05:00 WBC 35.39 H (4.50-10.00) 10*3/uL RBC 2.57 L (4.40-5.60) 10*6/uL Hgb 7.8 L (13.0-17.0) g/dL Hct 25.4 L (39.6-50.0) % MCV 98.8 H (80.0-97.0) fL MCHC 30.7 L (32.0-37.0) g/dL ABG pH (7.35-7.45) ABG pCO2 (35-45) mmHg ABG pO2 (83-108) mmHg ABG Total CO2 (19-24) mmol/L ABG O2 Saturation (94-97) % Hemoglobin (13.0-17.5) gm/dL Chloride (98-107) mmol/L Carbon Dioxide (22-30) mmol/L BUN (9-20) mg/dL Glucose (74-99) mg/dL POC Glucose (mg/dL) 207 H 199 H (70-110) mg/dL Calcium (8.4-10.2) mg/dL 01/09/25 01/09/25 01/09/25 Range/Units 05:00 05:17 06:33 WBC (4.50-10.00) 10*3/uL RBC (4.40-5.60) 10*6/uL Hgb (13.0-17.0) g/dL Hct (39.6-50.0) % MCV (80.0-97.0) fL MCHC (32.0-37.0) g/dL ABG pH 7.49 H (7.35-7.45) ABG pCO2 33 L (35-45) mmHg ABG pO2 124 H (83-108) mmHg ABG Total CO2 26 H (19-24) mmol/L ABG O2 Saturation 99.5 H (94-97) % Hemoglobin 8.2 L (13.0-17.5) gm/dL Chloride 110 H (98-107) mmol/L Carbon Dioxide 18 L (22-30) mmol/L BUN 30 H (9-20) mg/dL Glucose 152 H (74-99) mg/dL POC Glucose (mg/dL) 175 H (70-110) mg/dL Calcium 7.8 L (8.4-10.2) mg/dL Microbiology - Last 24 Hours (Table) 01/07/25 10:24 Blood Culture - Preliminary Blood 01/04/25 12:04 Stool Culture - Final Stool Assessment and Plan Plan: [id number] cardiac arrest likely from V. tach. Repeat cardiac arrest likely from V. tach on 01/02/2025. The patient is hypotensive, probably card iogenic in nature the patient is currently off pressors.. Cardiac rhythm is sinus. No significant cardiac arrhythmias and the patient is currently on Oral amiodarone 200 mg p.o. daily and the patient was also started on metoprolol 12.5 mg p.o. twice a day. Hypotension, multifactorial. The patient has severe cardiomyopathy in addition to intravascular volume depletion probably recovered with fluids and the patient is currently off pressors. Diarrhea, stool for C. difficile has been negative and the patient remains on enteral feeding for nutritional support Cardiomyopathy, EF 20 to 25%, nonischemic, possible Takotsubo, repeat echo 30- 35% Low-grade fever with leukocytosis, currently under investigation. The patient remains on broad-spectrum antibiotics including a combination of Zosyn daptomycin and Diflucan. Acute pulmonary edema with secondary acute hypoxic respiratory failure and subsequent V. tach induced cardiac arrest, improved and the patient's oxygenation is also improved while being on the mechanical ventilator. Chest x- ray shows no acute abnormalities and the patient has a LifeVest in place Left pneumothorax, S/P Thora vent placement. The Thora vent was removed on 01/07/2025 and the follow-up chest x-ray shows no evidence of any pneumothorax Acute kidney injury, likely secondary to diarrhea intravascular depletion, responded to IV fluids and the creatinine is improved History of chronic pancreatitis. Hyperammonemia, improved and the repeat ammonia level is 51 chronic alcohol abuse and alcoholic liver disease History of splenic vein thrombosis. History of syncope. History of chronic diarrhea. Lactic acidosis. Hypocalcemia, treated Hypomagnesemia, treated Leukocytosis with ongoing rise in the white cell count. Patient is on broad-spectrum antibiotics including a combination of Zosyn, daptomycin and Diflucan. Patient is also running a low-grade fever. Chronic cholecystitis Plan: Continue ventilator support. No ventilator changes for today. Hemodynamically stable on no pressors Keep the patient sedated on propofol, will give another sedation holiday. Amiodarone 200 mg p.o. daily metoprolol 12.5 mg p.o. twice a day Cardiac rhythm is sinus Monitor white cell count and fever Continue broad-spectrum antibiotics and the patient is currently combination of Zosyn Flagyl and Diflucan and daptomycin monitor diarrhea and stool for C. difficile has been negative Continue enteral feeding for nutritional support and the patient is currently receiving [employer] at a rate of 40 cc an hour Continue IV Lasix 40 mg every 24 hours Imodium for diarrhea Pancreatic enzyme supplements for chronic pancreatic insufficiency Will continue to monitor the progress and make further recommendations based on his condition. This evaluation was done in 33 minutes.
--- NOTE | 2025-01-09 16:59 | P.PN ---
Subjective Progress Note Date: 01/08/25 Principal diagnosis: Reason for follow-up is pneumonia/colitis Patient is a 44-year-old male with a past medical history significant for CVA TIA reflux history of recurrent/chronic pancreatitis from alcoholism and hypertension patient was brought into the hospital for lethargy seizure activity did have a cardiac arrest/V. tach requiring shock and subsequent admitted to the hospital.Patient did have a cardiac arrest last night patient is status post resuscitation intubation and transfer the ICU also have a right-sided pneumothorax. On today's visit that is 01/08/2025,the patient did have low-grade fever 100 F patient remains to be debated on the vent and apparently did not do well with the weaning parameters as reported by the respiratory therapist patient is currently on 40% FiO2 did have some diarrhea. Patient white count is up to 33.42, creatinine is 1.11 Objective - Vital Signs Vital signs: Vital Signs Temp 99.7 F H 01/08/25 12:00 Pulse 96 01/08/25 12:43 Resp 23 01/08/25 12:00 BP 112/81 01/07/25 08:00 Pulse Ox 96 01/08/25 12:00 FiO2 40 01/08/25 12:24 Intake & Output 01/07/25 01/08/25 01/08/25 18:59 06:59 18:59 Intake Total 2557.744 1043.608 729.082 Output Total 600 355 665 Balance 1957.744 688.608 64.082 Weight 61.8 kg 61.8 kg Intake: IV 399 313 248 .9NS KVO 260 280 130 .9NS Pressure Bag 39 33 18 Piperacillin-Tazobactam 3 100 100 .375 gm In Sodium Chloride 0.9% 100 ml @ 25 mls/hr IVPB Q8HR [facility] Rx# :[id number] Intake, IV Titration 1478.744 160.608 161.082 Amount DAPTOmycin 400 mg In 50 50 Sodium Chloride 0.9% 50 ml @ 100 mls/hr IVPB Q24HR [facility]AD Rx#:[id number] Lactated Ringers 500 ml @ 1000 999 mls/hr IV .Q31M ONE Rx#:[id number] Magnesium Sulfate-D5w Pmx 100 1 gm In Dextrose/Water 1 100ml.bag @ 100 mls/hr IVPB ONCE ONE Rx#: [id number] Norepinephrine 8 mg In 1.646 Sodium Chloride 0.9% 250 ml @ 0.03 MCG/KG/MIN 3. 291 mls/hr IV .Q24H [facility] Rx#:[id number] Potassium Chloride 20 meq 100 In Water For Injection 1 100ml.bag @ 50 mls/hr IVPB ONCE STA Rx#: [id number] Potassium Chloride 20 meq 100 In Water For Injection 1 100ml.bag @ 50 mls/hr IVPB Q2H [facility] Rx#: [id number] propofoL 1,000 mg In 128.744 158.962 111.082 Empty Bag 1 bag @ 15 MCG/ KG/MIN 4.788 mls/hr IV . [id number] [facility] Rx#:[id number] Tube Feeding 680 480 320 Other 90 Output: Urine 600 355 665 Other: Voiding Method Indwelling Catheter Indwelling Catheter Indwelling Catheter # Bowel Movements 1 1 1 ABP, PAP, CO, CI - Last Documented Arterial Blood Pressure 84/53 - Exam GENERAL DESCRIPTION: Middle-age male intubated on the vent RESPIRATORY SYSTEM: Unlabored breathing , decreased breath sounds at bases HEART: S1 S2 regular rate and rhythm , ABDOMEN: Soft , no tenderness EXTREMITIES: No edema feet - Labs CBC & Chem 7: 01/09/25 05:00 01/09/25 05:00 Labs: Abnormal Lab Results - Last 24 Hours (Table) 01/07/25 01/07/25 01/08/25 Range/Units 17:14 23:31 04:52 WBC (4.50-10.00) 10*3/uL RBC (4.40-5.60) 10*6/uL Hgb (13.0-17.0) g/dL Hct (39.6-50.0) % MCV (80.0-97.0) fL MCHC (32.0-37.0) g/dL ABG pH 7.48 H (7.35-7.45) ABG pCO2 34 L (35-45) mmHg ABG HCO3 26 H (21-25) mmol/L ABG Total CO2 27 H (19-24) mmol/L ABG O2 Saturation 97.5 H (94-97) % Hemoglobin 8.9 L (13.0-17.5) gm/dL Potassium (3.5-5.1) mmol/L Chloride (98-107) mmol/L BUN (9-20) mg/dL Glucose (74-99) mg/dL POC Glucose (mg/dL) 118 H 211 H (70-110) mg/dL Calcium (8.4-10.2) mg/dL 01/08/25 01/08/25 01/08/25 Range/Units 04:57 05:00 05:00 WBC 33.42 H (4.50-10.00) 10*3/uL RBC 2.78 L (4.40-5.60) 10*6/uL Hgb 8.6 L (13.0-17.0) g/dL Hct 27.1 L (39.6-50.0) % MCV 97.5 H (80.0-97.0) fL MCHC 31.7 L (32.0-37.0) g/dL ABG pH (7.35-7.45) ABG pCO2 (35-45) mmHg ABG HCO3 (21-25) mmol/L ABG Total CO2 (19-24) mmol/L ABG O2 Saturation (94-97) % Hemoglobin (13.0-17.5) gm/dL Potassium 3.3 L (3.5-5.1) mmol/L Chloride 108 H (98-107) mmol/L BUN 27 H (9-20) mg/dL Glucose 171 H (74-99) mg/dL POC Glucose (mg/dL) 201 H (70-110) mg/dL Calcium 7.7 L (8.4-10.2) mg/dL 01/08/25 Range/Units 12:06 WBC (4.50-10.00) 10*3/uL RBC (4.40-5.60) 10*6/uL Hgb (13.0-17.0) g/dL Hct (39.6-50.0) % MCV (80.0-97.0) fL MCHC (32.0-37.0) g/dL ABG pH (7.35-7.45) ABG pCO2 (35-45) mmHg ABG HCO3 (21-25) mmol/L ABG Total CO2 (19-24) mmol/L ABG O2 Saturation (94-97) % Hemoglobin (13.0-17.5) gm/dL Potassium (3.5-5.1) mmol/L Chloride (98-107) mmol/L BUN (9-20) mg/dL Glucose (74-99) mg/dL POC Glucose (mg/dL) 207 H (70-110) mg/dL Calcium (8.4-10.2) mg/dL Microbiology - Last 24 Hours (Table) 01/04/25 12:04 Stool Culture - Final Stool 01/02/25 16:07 Blood Culture - Final Blood Assessment and Plan (1) Sepsis Current Visit: Yes Status: Acute Code(s): A41.9 - SEPSIS, UNSPECIFIED ORGANISM SNOMED Code(s): 54297606 (2) Aspiration pneumonitis Current Visit: Yes Status: Acute Code(s): J69.0 - PNEUMONITIS DUE TO INHALATION OF FOOD AND VOMIT SNOMED Code(s): 363857302 (3) Colitis Current Visit: Yes Status: Acute Code(s): K52.9 - NONINFECTIVE GASTROENTERITIS AND COLITIS, UNSPECIFIED SNOMED Code(s): 02267521 (4) Cholecystitis Current Visit: Yes Status: Acute Code(s): K81.9 - CHOLECYSTITIS, UNSPECIFIED SNOMED Code(s): 46817331 Plan: 1patient presented to hospital with sepsis in this patient who did have tachycardia hypotension elevated white count meeting criteria for SIRS source likely aspiration pneumonitis as the patient did have intractable nausea vomiting before the patient has been brought to the hospital patient also have abnormality on the abdominal pelvis CT concerning for colitis question of infectious etiology need to be ruled out patient did not recall if he has been on antibiotic in the recent past 2-sputum cultures collected on 12/31/2024 reported as yeast 3-patient CT as well as ultrasound has been suspicious for cholecystitis HIDA scan has been suspicious for chronic cholecystitis General Surgery following the patient 4patient did have a cardiac arrest, patient was resuscitated and intubated in the ICU, patient did have a negative MRSA nasal screen repeat cultures so far negative 5patient is running a low-grade fever also noted to have worsening of the white count blood culture has been repeated patient continue Zosyn daptomycin has been added we will wait for repeat culture to finalize Dictation was produced using [employer] dictation software. please excuse any grammatical, word or spelling errors. Time with Patient: Less than 30
--- NOTE | 2025-01-09 17:00 | P.PN ---
Subjective Progress Note Date: 01/09/25 Principal diagnosis: Reason for follow-up is pneumonia/colitis Patient is a 44-year-old male with a past medical history significant for CVA TIA reflux history of recurrent/chronic pancreatitis from alcoholism and hypertension patient was brought into the hospital for lethargy seizure activity did have a cardiac arrest/V. tach requiring shock and subsequent admitted to the hospital.Patient did have a cardiac arrest last night patient is status post resuscitation intubation and transfer the ICU also have a right-sided pneumothorax. On today's visit that is 01/09/2025, the patient did have low-grade fever 100 F patient remains to be debated on the vent FiO2 currently at 40% patient seem to be doing well with the weaning parameters as reported by the nursing staff still having some diarrhea. Patient white count is up to 33 5.39 creatinine 1.0 6 repeat blood culture negative Objective - Vital Signs Vital signs: Vital Signs Temp 98.6 F 01/09/25 12:00 Pulse 80 01/09/25 16:20 Resp 31 H 01/09/25 16:20 BP 108/84 01/09/25 15:45 Pulse Ox 100 01/09/25 15:45 FiO2 40 01/09/25 16:03 Intake & Output 01/08/25 01/09/25 01/09/25 18:59 06:59 18:59 Intake Total 4292.908 8869.230 911.037 Output Total 463 848 3386 Balance 796.200 977.230 -228.963 Weight 61.8 kg 61.1 kg Intake: IV 632 433 440 .9NS KVO 290 200 110 .9NS Pressure Bag 42 33 30 DAPTOmycin 400 mg In 100 Sodium Chloride 0.9% 50 ml @ 100 mls/hr IVPB Q24HR [facility] Rx#:[id number] Magnesium Sulfate-D5w Pmx 100 1 gm In Dextrose/Water 1 100ml.bag @ 100 mls/hr IVPB Q1H [facility] Rx#: [id number] Piperacillin-Tazobactam 3 300 200 100 .375 gm In Sodium Chloride 0.9% 100 ml @ 25 mls/hr IVPB Q8HR [facility] Rx# :[id number] Intake, IV Titration 269.200 359.230 201.037 Amount DAPTOmycin 400 mg In 50 Sodium Chloride 0.9% 50 ml @ 100 mls/hr IVPB Q24HR [facility] Rx#:[id number] Dexmedetomidine/0.9% NaCl 1.313 12.979 (Pmx) 400 mcg In Empty Bag 1 bag @ 0.2 MCG/KG/HR 3.09 mls/hr IV .Q24H [facility] Rx#:[id number] Magnesium Sulfate-D5w Pmx 100 1 gm In Dextrose/Water 1 100ml.bag @ 100 mls/hr IVPB Q1H [facility] Rx#: [id number] Norepinephrine 8 mg In 36.209 211.200 31.123 Sodium Chloride 0.9% 250 ml @ 0.03 MCG/KG/MIN 3. 291 mls/hr IV .Q24H [facility] Rx#:[id number] propofoL 1,000 mg In 181.678 148.030 56.935 Empty Bag 1 bag @ 15 MCG/ KG/MIN 4.788 mls/hr IV . [id number] [facility] Rx#:[id number] Oral 0 Tube Feeding 820 550 150 Other 120 120 Output: Urine 514 693 1258 Other: Voiding Method Indwelling Catheter Indwelling Catheter Indwelling Catheter # Voids 1 # Bowel Movements 1 1 1 ABP, PAP, CO, CI - Last Documented Arterial Blood Pressure 117/69 - Exam GENERAL DESCRIPTION: Middle-age male intubated on the vent RESPIRATORY SYSTEM: Unlabored breathing , decreased breath sounds at bases HEART: S1 S2 regular rate and rhythm , ABDOMEN: Soft , no tenderness EXTREMITIES: No edema feet - Labs CBC & Chem 7: 01/09/25 05:00 01/09/25 05:00 Labs: Abnormal Lab Results - Last 24 Hours (Table) 01/09/25 01/09/25 01/09/25 Range/Units 00:52 05:00 05:00 WBC 35.39 H (4.50-10.00) 10*3/uL RBC 2.57 L (4.40-5.60) 10*6/uL Hgb 7.8 L (13.0-17.0) g/dL Hct 25.4 L (39.6-50.0) % MCV 98.8 H (80.0-97.0) fL MCHC 30.7 L (32.0-37.0) g/dL ABG pH (7.35-7.45) ABG pCO2 (35-45) mmHg ABG pO2 (83-108) mmHg ABG Total CO2 (19-24) mmol/L ABG O2 Saturation (94-97) % Hemoglobin (13.0-17.5) gm/dL Chloride 110 H (98-107) mmol/L Carbon Dioxide 18 L (22-30) mmol/L BUN 30 H (9-20) mg/dL Glucose 152 H (74-99) mg/dL POC Glucose (mg/dL) 199 H (70-110) mg/dL Calcium 7.8 L (8.4-10.2) mg/dL Ammonia (<30) umol/L Procalcitonin (0.02-0.50) ng/mL 01/09/25 01/09/25 01/09/25 Range/Units 05:00 05:17 06:33 WBC (4.50-10.00) 10*3/uL RBC (4.40-5.60) 10*6/uL Hgb (13.0-17.0) g/dL Hct (39.6-50.0) % MCV (80.0-97.0) fL MCHC (32.0-37.0) g/dL ABG pH 7.49 H (7.35-7.45) ABG pCO2 33 L (35-45) mmHg ABG pO2 124 H (83-108) mmHg ABG Total CO2 26 H (19-24) mmol/L ABG O2 Saturation 99.5 H (94-97) % Hemoglobin 8.2 L (13.0-17.5) gm/dL Chloride (98-107) mmol/L Carbon Dioxide (22-30) mmol/L BUN (9-20) mg/dL Glucose (74-99) mg/dL POC Glucose (mg/dL) 175 H (70-110) mg/dL Calcium (8.4-10.2) mg/dL Ammonia (<30) umol/L Procalcitonin 0.99 H (0.02-0.50) ng/mL 01/09/25 01/09/25 Range/Units 10:04 11:19 WBC (4.50-10.00) 10*3/uL RBC (4.40-5.60) 10*6/uL Hgb (13.0-17.0) g/dL Hct (39.6-50.0) % MCV (80.0-97.0) fL MCHC (32.0-37.0) g/dL ABG pH (7.35-7.45) ABG pCO2 (35-45) mmHg ABG pO2 (83-108) mmHg ABG Total CO2 (19-24) mmol/L ABG O2 Saturation (94-97) % Hemoglobin (13.0-17.5) gm/dL Chloride (98-107) mmol/L Carbon Dioxide (22-30) mmol/L BUN (9-20) mg/dL Glucose (74-99) mg/dL POC Glucose (mg/dL) 149 H (70-110) mg/dL Calcium (8.4-10.2) mg/dL Ammonia 51 H (<30) umol/L Procalcitonin (0.02-0.50) ng/mL Microbiology - Last 24 Hours (Table) 01/07/25 10:24 Blood Culture - Preliminary Blood 01/04/25 12:04 Stool Culture - Final Stool Assessment and Plan (1) Sepsis Current Visit: Yes Status: Acute Code(s): A41.9 - SEPSIS, UNSPECIFIED ORGANISM SNOMED Code(s): 45282588 (2) Aspiration pneumonitis Current Visit: Yes Status: Acute Code(s): J69.0 - PNEUMONITIS DUE TO INHALA TION OF FOOD AND VOMIT SNOMED Code(s): 873715500 (3) Colitis Current Visit: Yes Status: Acute Code(s): K52.9 - NONINFECTIVE GASTROENTERITIS AND COLITIS, UNSPECIFIED SNOMED Code(s): 25308351 (4) Cholecystitis Current Visit: Yes Status: Acute Code(s): K81.9 - CHOLECYSTITIS, UNSPECIFIED SNOMED Code(s): 33586219 Plan: 1patient presented to hospital with sepsis in this patient who did have tachy cardia hypotension elevated white count meeting criteria for SIRS source likely aspiration pneumonitis as the patient did have intractable nausea vomiting before the patient has been brought to the hospital patient also have abnormality on the abdominal pelvis CT concerning for colitis question of i nfectious etiology need to be ruled out patient did not recall if he has been on antibiotic in the recent past 2-sputum cultures collected on 12/31/2024 reported as yeast 3-patient CT as well as ultrasound has been suspicious for cholecystitis HIDA scan has been suspicious for chronic cholecystitis General Surgery following the patient 4patient did have a cardiac arrest, patient was resuscitated and intubated in the ICU, patient did have a negative MRSA nasal screen repeat cultures so far negative 5patient is running a low-grade fever also noted to have worsening of the white count despite being on daptomycin fluconazole 6I will go ahead and discontinue daptomycin and fluconazole start the patient on Eraxis continue with Zosyn Dictation was produced using [email or web address] dictation software. please excuse any grammatical, word or spelling errors. Time with Patient: Less than 30
[2025-01-09 17:52] LABS: Glucose,Whole Blood 181 mg/dL (70-110)
[2025-01-09 17:56] LABS: ABG HCO3 23 mmol/L (21-25); ABG PCO2 37 mmHg (35-45); ABG PH 7.39 (7.35-7.45); ABG PO2 125 mmHg (83-108); ABG TCO2 24 mmol/L (19-24); Allen Test Performed? Yes
[2025-01-09] MEDS: ANIDULAFUNGIN 200 MG in SODIUM CHLORIDE 0.9% 200 ML IVPB ONE (18:00)
[2025-01-09] MEDS: HYDROmorphone 0.5 MG/0.5 ML SYRINGE IVP PRN (21:57)
[2025-01-09 23:26] LABS: Glucose,Whole Blood 114 mg/dL (70-110)
[2025-01-09] MEDS: HYDROcodone/APAP 5-325MG 1 EACH TAB PO PRN (23:31)
--- NOTE | 2025-01-10 05:47 | P.PN ---
Subjective Progress Note Date: 01/09/25 This is a pleasant 44-year-old male who was recently admitted after brief cardiac arrest with multiple electrolyte abnormalities being closely monitored. Patient being followed by cardiology and is status post cardiac catheterization recommending maximizing medical management and normal coronary arteries noted. Patient reports to having increasing pain and also generalized weakness although reports will be going home on discharge. Patient did have an elevated white count that had been trending down although is slightly up today with infectious disease following and will repeat CT abdomen for further evaluation. Continue current antibiotics at this time. Case management is following as plan is for LifeVest on discharge. Recommend incentive spirometer as patient is requiring oxygen and may require oxygen on discharge. Will reattempt home oxygen evaluation. Encourage increase activity as tolerated with sitting up out of the bed more frequently. Labs reviewed and white count is 25.52, hemoglobin is 8.8, platelets 446, sodium 137 with a potassium of 3.5, BUN is 5 and creatinine 0.33. Calcium is slightly low at 6.2, total bili is 1.4. 12/31/2024 Patient is seen in follow-up with multiple consultations following. White count was elevated although slightly improving with infectious disease following we will continue current regimen at this time. Patient continues to report short ness of breath and generalized pain and continues to require oxygen. Will need home O2 assessment. Patient underwent CT abdomen and will consult general surgery for evaluation. Encouraged increased activity as tolerated with sitting up more frequently in the chair. 01/01/2025 Patient seen and evaluated this morning currently scheduled to undergo HIDA scan per general surgery and patient is currently requesting increase in pain medications as she reports diffuse pain. Pain medications through the IV are currently on hold as patient will be undergoing HIDA scan. Patient's white count is elevated with infectious disease following maintained on Zosyn and will continue. Patient is afebrile with no reports of chest pain or palpitations. Patient is reporting some congestion and occasional shortness of breath. Will order chest x-ray as well. Continue DuoNeb treatments and supplemental oxygen as needed. Patient currently maintained on 5 L. Would recommend PT/OT therapy evaluation as patient has had prolonged cough elevation and appears frail and extremely weak. 01/02/2025 Patient is seen in follow-up was a CODE BLUE on 3 S. and was transferred to ICU intubated for respiratory arrest with cardiac arrest and ROSC received. Patient remains a full code per sister and will continue on mechanical ventilation with an FiO2 of 100% and PEEP of 10 currently. Blood pressures are soft and patient is maintained on pressor support and hemoglobin was noted to be 6.9 this morning and will give 1 unit of PRBC. White count remains elevated at 24.18 and maintained on antibiotics with infectious disease following. Sodium is 141 with a potassium of 3.0, creatinine 0.48, blood sugars elevated, lactic acid 5.1 with a calcium that is low at 5.6, magnesium 1.2. Prognosis remains extremely guarded and CODE STATUS needs to be addressed again. 01/03/2025 Patient is seen in follow-up in the ICU maintained on mechanical ventilation and FiO2 was adjusted per pulmonary technician but FiO2 is currently 60%. Patient maintained on pressor support including Levophed and vasopressin and also receiving Lasix. Blood sugars have been elevated and will adjust insulins accordingly including increasing long-acting. Patient is continued on tube feeds and will continue at this time. Per nursing staff patient did require Chris hugger for some time for hypothermia. Hemoglobin is stable at 8.3 status post 1 unit of PRBC, white count remains elevated at 19.68, sodium is 134 and potassium was again 2.9 with replacement of 3.5 and continued on protocol creatinine is stable at 0.63. Preliminary sputum culture from 12/31/2024 showing yeast species. 01/04/2025 Patient is seen in follow-up continues to be in the ICU on mechanical ventilation with multiple consultations following. FiO2 is 60% and patient is continued on low-dose pressor and support, Levophed has been discontinued and p atient has been weaned off fentanyl and patient is not on Versed at this time. Patient continues on sedation with propofol and per nursing staff will undergo sedation trials to assess mentation. Patient is continued on antibiotics and will continue with infectious disease following. Blood sugars have been on the lower side and tube feedings have been started and tolerating thus far working on goal and will discontinue long-acting insulin and monitor closely with just Accu-Cheks and sliding scale for now. Prognosis remains extremely guarded and patient remains full code per family at this time. White count remains elevated at 23.15, hemoglobin is stable at 9.0 with no active bleeding noted, platelets are 319, sodium is 134 with a potassium of 3.8, BUN is 5 and creatinine is 0.79. Magnesium is 1.6 and receiving replacement. 01/05/2025 Patient is seen in follow-up today maintained on mechanical ventilation with no plans of weaning today continues on low-dose Levophed and other pressor support being weaned. Per nursing staff patient's blood pressures were extremely low overnight requiring reinitiation of the Levophed which is currently being weaned as tolerated. Patient is maintained on mechanical ventilation with an FiO2 of 40% PEEP is at 10. Patient remains full code and will attempt to contact family to discuss treatment plan and overall prognosis. Patient continues with Pleurx catheter in the left chest wall with no leak noted recommending to continue for another 24 hours as there was a noted tiny pneumothorax on the left on imaging. Per nursing staff patient is experiencing a mild rectal prolapse and would recommend keeping the area moist and lubricated as much as possible. Patient continues to have loose stools and is maintained on antibiotics with infectious disease following. 01/06/2025 Patient is seen in follow-up continues in the ICU on mechanical ventilation with an FiO2 of 40% PEEP is being adjusted to 6 per pulmonary technician cleared no plans of weaning at this time recommending initiating small sedation trials to assess mentation. Patient has been weaned off pressor support with medications being adjusted and cardiology following. Patient continues with Thora vent on the left and per technician will be capped with possible removal in the next 24 hours as chest x-ray reveals a tiny pneumothorax that is stable. Patient continues on IV Lasix and will continue as patient is extremely edematous in upper and lower extremities. Patient continues on IV antibiotics in the form of Zosyn and Flagyl and also Diflucan and will continue with infectious disease following. Repeat cultures are pending at this time and patient remains afeb rile. 01/07/2025 Patient is seen in follow-up continues on mechanical ventilation with an FiO2 of 40% and PEEP of 6. Per nursing staff patient did become more hypotensive and tachycardic requiring Levophed to be resumed and currently on hold as blood pressures have improved and will continue to wean as tolerated. Patient continues with significant volume overload and is maintained on IV Lasix daily. Patient continues to have an elevated white count with worsening and also having increased fevers with infectious disease following and will add daptomycin and repeat cultures. Patient remains sedated at this time with no plans of weaning. Pulmonary technician following closely. Thora vent on the left is being removed and will follow-up with repeat chest x-rays. 01/08/2025 Patient seen in follow-up continues to be on mechanical ventilation with no vent changes today maintained on FiO2 of 40% and PEEP of 6. Per nursing staff patient underwent sedation holiday this morning although breathing rapidly with respirations of 30 to 40/min and was placed back on propofol. Discussion of we aning propofol and attempting Precedex with sedation holidays. Patient is off pressor support at this time and will monitor closely. White count is elevated at 33 and having low-grade temps maintained on daptomycin and Zosyn with infectious disease following closely. Per nursing staff patient is having multiple episodes of loose stools most likely secondary to tube feeds. C. difficile has been negative and will add as needed Imodium. WBC is 33.42, hemoglobin 8.6, platelets are 280, potassium was 3.3 and replaced and follow-up is 4.4, sodium is 141, BUN is 27 with a creatinine of 1.11. Blood sugars being monitored closely and will adjust accordingly 01/09/2025 Patient is seen in follow-up today currently awake and off sedation still requiring some Precedex as patient is extremely anxious and attempting to pull at tubing. Plan is for possible extubation today and has been tolerating weaning trials. Patient is afebrile continues with occasional low-grade fever maintained on antibiotics infectious disease following closely. White count is above 30 and patient will be started on Eraxis per ID recommendations. Recommend repeat labs. Patient is off pressor support currently and cardiology following closely. Patient continues with LifeVest at this time. Patient continues with loose stools and C. difficile testing has been negative. Continue Imodium as needed. Review of systems: Unable to assess as patient is unable to speak at this time as patient continues on mechanical ventilation with eyes opening and following commands All medications have been reviewed PHYSICAL EXAMINATION: GENERAL: The patient is alert and oriented x3, continued on mechanical vent with an FiO2 of 40 % and PEEP is 6. Undergoing weaning trials extubation today well developed, elderly appearing, thin built, cachectic, chronically ill-appearing HEENT: Pupils are round and equally reacting to light. EOMI. no scleral icterus. No conjunctival pallor. Normocephalic, atraumatic. No pharyngeal erythema. No thyromegaly. CARDIOVASCULAR: S1 and S2 muffled PULMONARY: diminished breath sounds bilaterally with no wheezing, scattered coarse rhonchi noted with upper bronchial congestion. Crackles noted at the bases ABDOMEN: soft. Nontender on exam. Thin non-distended, normoactive bowel sounds. No palpable organomegaly. MUSCULOSKELETAL: No joint swelling or deformity. EXTREMITIES: No cyanosis, clubbing, or pedal edema. Bilateral upper extremities edematous NEUROLOGICAL: Gross neurological examination did not reveal any focal deficits. Unable to completely assess as patient is maintained on mechanical ventilation not me sedation is off and patient is following commands working on weaning trials SKIN: No rashes. Extremely pale Assessment: Cardiac arrest, possibly secondary to ventricular tachycardia secondary to multiple electrolyte abnormalities Respiratory arrest with cardiac arrest requiring mechanical ventilation 01/01/2025 likely secondary to V. tach Severe hypokalemia, hypomagnesemia, hypocalcemia, improving after replacement, continue to monitor closely History of EtOH Nonischemic cardiomyopathy possible Takotsubo, EF was 20 to 25%, repeat is 30- 35, continued on LifeVest Possible acute colitis as noted on imaging Continued ongoing diarrhea, C. difficile was negative as well as tube feeds Diabetes mellitus, type II, uncontrolled with hyperglycemia History of pancreatitis Tachycardia Anemia, chronic, hemoglobin stable above 8 today Concerns of possible right lower lobe pneumonia, possibly aspiration History of splenic vein thrombosis, was on Eliquis Hepatic encephalopathy Moderate protein calorie malnutrition with a BMI of 17.7 GI prophylaxis DVT prophylaxis Full code Plan: Recommend to continue with current medications and management with multiple consultations following. Patient remains in the ICU on mechanical ventilation and FiO2 is 40% and PEEP is being adjusted to 6 per pulmonary technician. Undergoing sedation trials with no plans of weaning at this time. Will attempt to wean propofol and use Precedex Patient had respiratory arrest with cardiac arrest on 01/01/2025 and was placed on mechanical ventilation. Pressor supports discontinued and being weaned off mech vent today 01/09 infectious disease following as white count remains elevated although worsening at 33 and patient is maintained on antibiotics in the form of Zosyn and daptomycin will be discontinued. Being started on Eraxix per ID recommendations. Cardiology following and patient is status post catheterization recommending maximizing medical management and case management following and has received LifeVest. Patient does currently have LifeVest on. Patient has transition to oral amiodarone off amiodarone drip Patient continues to have multiple loose stools nursing staff and C. difficile testing has been negative, likely secondary to tube feeds and continued antibiotics, continue Imodium as needed Continue monitoring Accu-Cheks AC and at bedtime and adjust accordingly. Blood sugars have been on the lower side and will hold long-acting and continue with just sliding scale for now, will adjust once diet is resumed Follow-up on repeat labs and replace electrolytes per protocol. Replace potassium and magnesium per protocol Per nursing staff sister reports patient is full code and to remain full code per family. The impression and plan of care has been dictated by Ana Duggan, Nurse Practitioner as directed. Dr. Koby MD I have performed a history and examination and MDM of this patient, discussed the same with the dictator, and agree with the dictator's assessment and plan as written ,documented as a scribe. Based on total visit time, I have performed more than 50% of the visit. Objective - Vital Signs Vital signs: Vital Signs Temp 98.7 F 01/09/25 06:00 Pulse 110 H 01/09/25 08:27 Resp 19 01/09/25 07:00 BP 112/81 01/07/25 08:00 Pulse Ox 99 01/09/25 07:00 FiO2 40 01/09/25 08:14 Intake & Output 01/08/25 01/09/25 01/09/25 18:59 06:59 18:59 Intake Total 0939.678 2558.230 235.032 Output Total 925 485 50 Balance 796.200 977.230 185.032 Weight 61.8 kg 61.1 kg Intake: IV 632 433 23 .9NS KVO 290 200 20 .9NS Pressure Bag 42 33 3 Piperacillin-Tazobactam 3 300 200 .375 gm In Sodium Chloride 0.9% 100 ml @ 25 mls/hr IVPB Q8HR VLAD Rx# :[id number] Intake, IV Titration 269.200 359.230 132.032 Amount DAPTOmycin 400 mg In 50 Sodium Chloride 0.9% 50 ml @ 100 mls/hr IVPB Q24HR VLAD Rx#:[id number] Dexmedetomidine/0.9% NaCl 1.313 (Pmx) 400 mcg In Empty Bag 1 bag @ 0.2 MCG/KG/HR 3.09 mls/hr IV .Q24H VLAD Rx#:[id number] Magnesium Sulfate-D5w Pmx 100 1 gm In Dextrose/Water 1 100ml.bag @ 100 mls/hr IVPB Q1H VLAD Rx#: [id number] Norepinephrine 8 mg In 36.209 211.200 15.104 Sodium Chloride 0.9% 250 ml @ 0.03 MCG/KG/MIN 3. 291 mls/hr IV .Q24H VLAD Rx#:[id number] propofoL 1,000 mg In 181.678 148.030 16.928 Empty Bag 1 bag @ 15 MCG/ KG/MIN 4.788 mls/hr IV . [id number] VALD Rx#:[id number] Oral 0 Tube Feeding 820 550 50 Other 120 30 Output: Urine 925 485 50 Other: Voiding Method Indwelling Catheter Indwelling Catheter # Voids 1 # Bowel Movements 1 1 ABP, PAP, CO, CI - Last Documented Arterial Blood Pressure 130/82 - Labs CBC & Chem 7: 01/09/25 05:00 01/09/25 05:00 Labs: Abnormal Lab Results - Last 24 Hours (Table) 01/08/25 01/09/25 01/09/25 Range/Units 12:06 00:52 05:00 WBC 35.39 H (4.50-10.00) 10*3/uL RBC 2.57 L (4.40-5.60) 10*6/uL Hgb 7.8 L (13.0-17.0) g/dL Hct 25.4 L (39.6-50.0) % MCV 98.8 H (80.0-97.0) fL MCHC 30.7 L (32.0-37.0) g/dL ABG pH (7.35-7.45) ABG pCO2 (35-45) mmHg ABG pO2 (83-108) mmHg ABG Total CO2 (19-24) mmol/L ABG O2 Saturation (94-97) % Hemoglobin (13.0-17.5) gm/dL Chloride (98-107) mmol/L Carbon Dioxide (22-30) mmol/L BUN (9-20) mg/dL Glucose (74-99) mg/dL POC Glucose (mg/dL) 207 H 199 H (70-110) mg/dL Calcium (8.4-10.2) mg/dL 01/09/25 01/09/2525 Range/Units 05:00 05:17 06:33 WBC (4.50-10.00) 10*3/uL RBC (4.40-5.60) 10*6/uL Hgb (13.0-17.0) g/dL Hct (39.6-50.0) % MCV (80.0-97.0) fL MCHC (32.0-37.0) g/dL ABG pH 7.49 H (7.35-7.45) ABG pCO2 33 L (35-45) mmHg ABG pO2 124 H (83-108) mmHg ABG Total CO2 26 H (19-24) mmol/L ABG O2 Saturation 99.5 H (94-97) % Hemoglobin 8.2 L (13.0-17.5) gm/dL Chloride 110 H (98-107) mmol/L Carbon Dioxide 18 L (22-30) mmol/L BUN 30 H (9-20) mg/dL Glucose 152 H (74-99) mg/dL POC Glucose (mg/dL) 175 H (70-110) mg/dL Calcium 7.8 L (8.4-10.2) mg/dL Microbiology - Last 24 Hours (Table) 01/07/25 10:24 Blood Culture - Preliminary Blood 01/04/25 12:04 Stool Culture - Final Stool
[2025-01-10 06:02] LABS: Glucose,Whole Blood 146 mg/dL (70-110)
[2025-01-10 06:21] LABS: Basophils # (A) 0.08 10*3/uL (0.00-0.10); Basophils % (A) 0.3 %; Eosinophils # (A) 0.34 10*3/uL (0.04-0.35); Eosinophils % (A) 1.3 %; HCT 21.8 % (39.6-50.0); Lymphocytes # (A) 2.71 10*3/uL (0.90-5.00); Lymphocytes % (A) 10.0 %; MCH 31.2 pg (27.0-32.0); MCHC 31.7 g/dL (32.0-37.0); MCV 98.6 fL (80.0-97.0); Monocytes # (A) 2.52 10*3/uL (0.20-1.00); Monocytes % (A) 9.3 %; Neutrophils # (A) 20.37 10*3/uL (1.80-7.70); Neutrophils % (A) 75.5 %; Platelet Count 381 10*3/uL (140-440); RBC 2.21 10*6/uL (4.40-5.60); RDW 20.9 % (11.5-14.5); WBC 26.98 10*3/uL (4.50-10.00)
[2025-01-10 06:56] LABS: African American GFR (CKD) >90 (>60 ml/min/1.73 sqM); Anion Gap 14 mmol/L; Blood Urea Nitrogen 30 mg/dL (9-20); Calcium 7.8 mg/dL (8.4-10.2); Carbon Dioxide 21 mmol/L (22-30); Chloride 107 mmol/L (98-107); Glucose 125 mg/dL (74-99); Magnesium 1.8 mg/dL (1.6-2.3); Non-African American GFR(CKD) >90 (>60 ml/min/1.73 sqM); Potassium 2.8 mmol/L (3.5-5.1); Sodium 142 mmol/L (137-145)
[2025-01-10] MEDS: MAGNESIUM SULFATE-D5W PMX 1 GM in DEXTROSE/WATER 1 100ML.BAG IVPB ONE (07:11)
[2025-01-10] MEDS: POTASSIUM CHLORIDE ER 20 MEQ TAB.ER PO SCH (07:11)
[2025-01-10 07:15] LABS: HGB 6.9 g/dL (13.0-17.0)
--- NOTE | 2025-01-10 07:22 | XR ---
EXAMINATION TYPE: XR chest 1V portable DATE OF EXAM: 01/10/2025 4:54 AM COMPARISON: Chest radiograph from one day prior. CLINICAL INDICATION: Male, 44 years old with history of respiratory failure; [facility] TECHNIQUE: XR chest 1V portable Frontal view of the chest. FINDINGS: Lungs/Pleura: There is no evidence of pleural effusion, focal consolidation, or pneumothorax. Pulmonary vascularity: Pulmonary vascular congestion. Heart/mediastinum: Cardiomediastinal silhouette is prominent in size. Musculoskeletal: No acute osseous pathology. Other findings: None Lines/Tubes: Interval removal of the endotracheal tube. Interval removal of the enteric tube, Right internal jugular central venous catheter with distal tip at the cavoatrial junction. IMPRESSION: Stable exam, mild pulmonary vascular congestion. Correlate with BNP for congestive heart failure. [facility], , 01/10/2025 7:20 AM
[2025-01-10 11:54] LABS: Glucose,Whole Blood 145 mg/dL (70-110)
[2025-01-10 12:59] LABS: Basophils # (A) 0.14 10*3/uL (0.00-0.10); Basophils % (A) 0.6 %; Eosinophils # (A) 0.29 10*3/uL (0.04-0.35); Eosinophils % (A) 1.2 %; HCT 24.0 % (39.6-50.0); HGB 7.4 g/dL (13.0-17.0); Lymphocytes # (A) 2.11 10*3/uL (0.90-5.00); Lymphocytes % (A) 8.4 %; MCH 31.0 pg (27.0-32.0); MCHC 30.8 g/dL (32.0-37.0); MCV 100.4 fL (80.0-97.0); Monocytes # (A) 2.55 10*3/uL (0.20-1.00); Monocytes % (A) 10.2 %; Neutrophils # (A) 18.96 10*3/uL (1.80-7.70); Neutrophils % (A) 75.8 %; Platelet Count 469 10*3/uL (140-440); RBC 2.39 10*6/uL (4.40-5.60); RDW 20.8 % (11.5-14.5); WBC 24.99 10*3/uL (4.50-10.00)
--- NOTE | 2025-01-10 14:40 | P.PN ---
Subjective Progress Note Date: 01/10/25 Cardiopulmonary arrest. This is a 44-year-old white male brought into the emergency room earlier this mo rning by EMS with altered mental status and seizure-like activity. Apparently the patient is known to have past medical history of alcohol use, chronic pancreatitis, pancreatic pseudocyst, history of hypertension, previous history of TIA, patient had a sudden feeling of dizziness, and asked his roommate to call EMS. Apparently upon arrival of EMS he was found to have seizure-like activity and went unresponsive on the monitor the patient was noted to have ventricular tachycardia, CPR was started and the patient received 1 shock. Patient became conscious again, and his rhythm came back with return of circulation. Apparently for the last few days the patient has been experiencing episodes of nausea and vomiting and episodes of low blood sugar. In addition, patient has been complaining of episodes of diarrhea for the last 2 weeks. Patient normally follows up at [facility] for his pancreatitis and pseudocyst. He is also known to have history of splenic vein thrombosis, maint ained on anticoagulation. And has been taking Eliquis until yesterday. Patient drinks occasionally at this point, used to be a heavy drinker in the past. I evaluated the patient in the ER, and considering his cardiac arrest history, I recommended admitting the patient to the ICU, and he is to be seen by other consultants including cardiology. During my evaluation the patient was not in any distress, he was hemodynamically stable, all his labs were reviewed. Patient was seen today on 12/25/2024, remains in the ICU mostly because of his profound electrolyte abnormalities including hypocalcemia, hypomagnesium , hypokalemia, these are all being addressed accordingly mostly related to his GI symptoms and his pancreatitis. As well as diarrhea and nausea and vomiting. Patient is not in any distress, he is on 2 L nasal cannula, has been receiving potassium almost every 2 hours 20 mEq orally remains empirically on Zosyn, continues to have some vague abdominal pain and discomfort. WBC count today is 12.2 hemoglobin 9.5 electrolytes showed low sodium of 131 low potassium 2.9 but few hours later it was up to 3.8 renal functioning is normal calcium is up to 5.8 today. Add magnesium is up to 2.1, these are all being addressed daily. Cardiac sheppard the patient is in sinus rhythm, no further episodes of tachyarrhythmia. Seen today on 12/26/2024, patient remains in the ICU, feeling better, he has no active pulmonary symptoms no GI symptoms and no cardiac symptoms. Labs have shown significant improvement his potassium today is 4.5 calcium is up to 6 however his albumin is 1.9 which makes his corrected calcium 7.68., Improved, but not up to 8.4 or higher. Hence would recommend more calcium gluconate to be given for this patient. Magnesium not done today however was 2.1 yesterday. Seen today on 12/27/2024, patient is doing well, asymptomatic. Has some vague abdominal pain no cough no wheezing no shortness of breath no chest pain. No palpitations CBC showed leukocytosis WBC count of 15.9 hemoglobin 8.8. His electrolytes are normal potassium is 3.8 calcium is up to 6.8/uncorrected to albumin. 01/02/25 - He was seen and examined in the ICU, room 258. He was previously seen by pulmonary/critical care up until 12/27/2024, at which time we signed off care. Since that time, on 12/30/2024 he underwent a cardiac catheterization with Dr. Rosario which revealed normal coronary arteries, cardiomyopathy of nonischemic etiology. He was being followed by infectious disease due to possible colitis, and had been placed on antibiotics, general surgery for exploratory laparotomy in regards to cholecystitis and colitis. Late in the evening on 01/01/2025 a CODE BLUE was called in which the patient had diminished breath sounds and was tachypneic. He became bradycardic and then went asystole, at which time CPR was initiated. CODE BLUE as per the event note in the patient's chart. ROSC was achieved with 2 rounds of epinephrine. At that time patient was intubated, transferred to the ICU and initiated on a bicarb drip. He was noted to have pneumothorax of the left lung. He was intubated on 01/01/2025 and has not been mechanically ventilated with a tidal volume 400, respiratory rate 22, FiO2 100% and PEEP of 10. Most recent blood gas showed pO2 66, pCO2 45 and pH 7.37. Most recent labs showed WBCs 27.2, hemoglobin 6.9, hematocrit 21.8, platelet 339; sodium 141, potassium 2.6, bicarb 20, BUN <2, creatinine 0.48, lactic acid 11.7, calcium 5.6, ionized calcium 3.4, magnesium 1.2, total bilirubin 1.2, AST 99, ALT 29, alkaline phosphatase 183, TSH 0.551. He is currently receiving norepinephrine 0.39 mcg/kg/min, and sedated with fentanyl at 1 mcg/kg/h, propofol at 50 mcg/kg/h, and received an additional 10 mg of Nimbex prior to left radial arterial line placement. He continues receiving vancomycin, Zosyn, Flagyl and Diflucan. Progress note dated January 03, 2025. This is a 44-year-old male seen in room 258. He remains on mechanical ventilator. He is on volume assist-control, rate 22, tidal volume 400, FiO2 70%, PEEP of 10. Blood gases show pO2 123, pCO2 50, pH of 7.46. He has a left Thora vent in place. He is on fentanyl at 1.5 mcg/kg/h, D5W with 3 ampoules of sodium bicarbonate at 150 cc an hour, propofol at 50 mcg/kg/min, saline at 30 cc an hour, norepinephrine at 6 mcg/min, and vasopressin at 0.03 units/min. Sodium bicarbonate drip can be discontinued. The patient is currently also on fluconazole, Flagyl, vancomycin, and Zosyn. Current labs include a white count of 19.7, hemoglobin 8.3, hematocrit 25, and platelet count 304,000. Sodium 134, potassium 2.9, chloride 94, CO2 35, BUN 2, creatinine 0.63. Calcium is 5.3, and ionized calcium is low at 3.4. Albumin is 1.4. Cultures thus far are negative, save for the sputum showing evidence of yeast. Chest x-ray shows the left lung to be expanded, with a very tiny pneumothorax. There is diffuse changes throughout, largely unchanged. Progress note dated January 04, 2025. 44-year-old male seen today in room 258. He continues on volume assist-control, rate 22, tidal volume 400, 60% FiO2, PEEP of 10. Blood gases show pO2 of 93, pCO2 50, pH of 7.49. Is currently on propofol at 40 mcg/kg/min, vasopressin at 0.02 units/min, saline at 40 cc an hour, and tube feedings, at 21 cc an hour, which is goal. He continues on Diflucan, Flagyl, and Zosyn. White count is 23.2, hemoglobin 9, hematocrit 26.7, and platelet count is 319,000. Sodium 134, potassium 3.8, chloride 92, CO2 37, BUN is 5, with creatinine 0.79. Glucose 196. Calcium 6.5. Magnesium 1.6. Tiny apical left pneumothorax. Thora vent device is still noted. On 01/05/2025, the patient is being seen for a follow-up. This morning, the patient remains intubated on a mechanical ventilator. The patient is on propo fol running at 40 mcg/kg/min. Earlier this morning, the patient was noted to be slightly hypotensive and started on norepinephrine which is currently running at low-dose of 0.01 mcg/kg/min. Nevertheless, the dose needs to be adjusted as the patient continues to have and run a low blood pressure. He remains on the mechanical ventilator assist-control mode rate of 22, tidal volume of 400, FiO2 50% with a PEEP of 10. Fluid balance is -2.1 L over the past 24 hours. His cardiac rhythm is sinus. He is covered with broad-spectrum antibiotics and the patient is currently on a combination of Zosyn and Flagyl and Diflucan and he remains on IV Lasix. He is also on tube feeds and the patient is using [employer] 1.4 at a rate of 21 cc an hour. The blood work from today shows a WBC count of 17.8 with a hemoglobin of 9.8 and a platelet count of 272. Blood gas showed a pH of 7.53 with a [id number] and PO2 of 191. BUN is 10 with a creatinine of 1.03 and electrolytes show a sodium level of 135, serum bicarb is at 37. No other significant events overnight. As stated earlier, the patient has non ischemic cardiomyopathy. A outpatient cardiac arrest related to V. tach and another cardiac arrest on 01/02/2025 with development of acute pulmonary edema. During the resuscitation and post CPR, he also developed a left-sided pneumothorax. Chest x-ray from today shows ongoing pulmonary edema. Pne umothorax has recovered. No evidence of any air leak and the patient has a Thora vent over the left anterior chest. On 01/06/2025, the patient is being seen for a follow-up. This morning, the breann ent remains intubated on the mechanical ventilator. He is on propofol which was at 40 mcg and this was dropped down to 30 mcg/kg/min. The patient is currently off pressors. IV fluids are currently at KVO and the fluid balance is -2.1 L over the past 24 hours and the patient received Lasix 40 mg IV every 12 hours. The patient is on assist-control mode of mechanical ventilation at rate of 22, tidal volume of 400, FiO2 40% with a PEEP of 8. Blood gas showed a pH of 7.54 with a [id number] and PO2 of 87. The follow-up chest x-ray from today is showing minimal left apical pneumothorax, Thora vent is still in place. Multiple lines and catheters are still in place and the patient has a left lower lobe pulmonary infiltrate. Findings are essentially stable compared to yesterday. Rest of the labs show a white cell count of 20 with a hemoglobin of 10.3 and a platelet count of 282. The blood gas showed a pH of 7.54 with a PCO2 of 41 and PO2 of 87. Sodium level is at 139 with a potassium level of 4.6, BUN 16 with a creatinine of 1.1. Calcium levels at 7.8. Stool for C. difficile has been negative. The patient is currently on Zosyn and Diflucan. Norepinephrine has been discontinued and the patient remains on IV Lasix with excellent urine output. A sedation holiday is to be given today. The Thora vent is to be capped. 01/08/2020 time, the patient is being seen for a follow-up. The patient remains on propofol running at 40 mcg/kg/min. He remains intubated on the mechanical ventilator. He is on assist-control at rate of 22, tidal volume of 400, 30 to 40% with a PEEP of 6. Blood gas showed a pH of 7.52 with a [id number] and PO2 of 87. His fluid balance is +1.6 L. However, it is not an accurate measurement as the patient is having profuse diarrhea and he seems to be more so intravascularly depleted and the patient is currently on low-dose norepinephrine running at 0.04 mcg/kg/min. He remains on [employer] at rate of 40 cc an hour. Cardiac rhythm is sinus at this point. IV fluids are currently at KVO. Broad- spectrum antibiotics are in the form of daptomycin and Zosyn and Diflucan. ID is on the case managing his antibiotics. There was concern of a chronic cholecy stitis. Nevertheless, LFTs are normal and the patient has no signs or symptoms of an acute cholecystitis based on clinical evaluation and ultrasound imaging. The patient's sodium levels at 141 with a potassium level of 4.7, chlorides 105 with a bicarb of 27. BUN is 22 with a creatinine of 1.23. He has sustained an acute kidney injury as the patient's baseline creatinine was at 0.6 from few day s back. White cell count remains elevated at 26.2 with a heme of 8.8 and a platelet count of 252. As such, there is a drop in hemoglobin compared to yesterday. Chest x-ray was also reviewed and it shows atelectatic changes and possibly a small effusion in the left lung base. All of the catheters are in good location. No significant cardiac arrhythmias and the patient has been taken off the IV amiodarone drip and the patient is currently on oral amiodarone at a dose of 200 mg p.o. daily. On a separate note, the chest x-ray from today shows no evidence of any pneumothorax. Thora vent has been capped for the past 24 hours. 01/08/2025, the patient is being seen for a follow-up. The patient this morning is on propofol running at 40 mcg/kg/min. Remains on a mechanical ventilator, assist-control mode rate of 22, tidal volume of 400, FiO2 40% with a PEEP of 6. Blood gas showed pH of 7.48 with a PCO2 of 34 and PO2 of 89. Chest x-ray shows adequate expansion of both lungs. No acute airspace disease or consolidation is noted. The patient did have some hypotension and acute kidney injury on yesterday's evaluation. Based on that, the patient was given a total of 1.5 L of bolus of lactated Ringer. Fluid balance is +2.6 L over the past 24 hours. The patient is currently off pressors. He is having limited diarrhea. IV fluids are currently at KVO. He is receiving enteral feeding [employer] at a rate of 40 cc an hour. No abdominal distention. No fever. No cardiac arrhythm ias and the cardiac rhythm remains sinus. The white cell count is higher compared to yesterday. The white cell count is currently up to 33 with a hemoglobin of 8.6 and a platelet count of 280. The sodium is at 141, potassium is at 4.4, BUN 27 with a creatinine of 1.1. Stool for C. difficile has been negative. He is running a low-grade temperature of 100.0. He is currently on a combination of Zosyn, daptomycin and Diflucan. He remains on amiodarone 200 mg p.o. daily. He is receiving Lasix 40 mg IV every 24 hours. He remains on metoprolol 12.5 mg p.o. twice a day. He is also on midodrine. No pressors for now. On 01/09/2025, patient is being seen for a follow-up. The patient remains on propofol running at 50 mcg/kg/min. The patient was given a sedation holiday yesterday and he was taken off the propofol. He had significant tachypnea and respiratory distress and some degree of agitation. The patient was trialed on Precedex and he failed and based on it, the patient was placed back on propofol. This morning, he seems to be calm and comfortable and arousable. Will do a gra dual wean of his propofol. Meanwhile, he remains on mechanical ventilator, assist-control mode at rate of 22, tidal volume of 400, FiO2 40% with a PEEP of 6. Blood gas showed a pH of 7.49 with a [id number] and PO2 124. The patient remains on enteral feeding for nutritional support, [employer] at rate of 50 cc an hour. Fluid balance is +1.7 L and the patient continues to have diarrhea with his negative stool for C. difficile. The patient remains on Lasix 40 mg IV every 24 hours. On today's blood work, the patient's white cell count is 35.3 with a hemoglobin 7.8 and a platelet count of 346. Sodium levels at 142, BUN 30 creatinine of 1.06. Serum bicarb is 18 with a gap of 14. Ammonia level is at 51. Blood sugar is at 149. Antibiotic coverage remains unchanged and the patient remains on the combination of Zosyn and daptomycin and Diflucan. Remains on amiodarone 200 mg p.o. daily. Remains on metoprolol 12.5 mg p.o. twice daily and the patient is not having any significant cardiac arrhythmias. He is currently afebrile. Tmax over the past 24 hours was 100 degrees. On 01/10/2025, the patient is extubated the patient is currently on 3 L of oxygen by nasal cannula. He is weak and lethargic. Awake and arousable and he is able to communicate. Is complaining of diffuse bodyaches. He is on no pressors. Fluid balance is +1.7 L over the past 24 hours. Hemoglobin is currently at 6.9. The patient remains off Precedex. White cell count is improving. The patient is currently afebrile. Based on his ongoing episodes of fever and leukocytosis, antibiotic modification was done by infectious disease and the patient was started on a combination of Zosyn and Eraxis. Nevertheless, he does not have any positive blood culture. Chest x-ray findings are stable and the patient has no evidence of pneumonia. He continues to wear a LifeVest. Cardiac rhythm is sinus. Remains on Lasix 40 g IV every 24 hours. No other significant events overnight. The white cell count 24 with a heme of 7.4 and a platelet count of 469. The sodium is at 142, potassium is at 2.8, BUN 30 with a 0.9. Serum Bicarb Is 21 with a Gap of 14. The Patient Has No Vertical Neurological Deficit. Generalized Weakness. He Remains on Amiodarone and Metoprolol Post Cardiac Arrest Related to Ventricular Arrhythmia/Fibrillation. No Active Diarrhea at This Point. Remains on Midodrine. Overall Condition Is Stable and the Patient Was Successfully Extubated Yesterday. Objective - Vital Signs Vital signs: Vital Signs Temp 97.7 F 01/10/25 04:00 Pulse 87 01/10/25 08:55 Resp 19 01/10/25 07:00 BP 119/84 01/10/25 07:00 Pulse Ox 98 01/10/25 08:55 FiO2 40 01/09/25 16:03 Intake & Output 01/09/25 01/10/25 01/10/25 18:59 06:59 18:59 Intake Total 7526.615 7932 23 Output Total 1226 625 80 Balance 43.272 748 -57 Weight 61.326 kg Intake: IV 563 353 23 .9NS KVO 130 220 20 .9NS Pressure Bag 33 33 3 DAPTOmycin 400 mg In 100 Sodium Chloride 0.9% 50 ml @ 100 mls/hr IVPB Q24HR [facility] Rx#:[id number] Magnesium Sulfate-D5w Pmx 100 1 gm In Dextrose/Water 1 100ml.bag @ 100 mls/hr IVPB Q1H [facility] Rx#: [id number] Piperacillin-Tazobactam 3 200 100 .375 gm In Sodium Chloride 0.9% 100 ml @ 25 mls/hr IVPB Q8HR [facility] Rx# :[id number] Intake, IV Titration 356.272 100 Amount Anidulafungin 200 mg In 100 100 Sodium Chloride 0.9% 200 ml @ 84 mls/hr IVPB ONCE ONE Rx#:[id number] Dexmedetomidine/0.9% NaCl 68.214 (Pmx) 400 mcg In Empty Bag 1 bag @ 0.2 MCG/KG/HR 3.09 mls/hr IV .Q24H [facility] Rx#:[id number] Magnesium Sulfate-D5w Pmx 100 1 gm In Dextrose/Water 1 100ml.bag @ 100 mls/hr IVPB Q1H [facility] Rx#: [id number] Norepinephrine 8 mg In 31.123 Sodium Chloride 0.9% 250 ml @ 0.03 MCG/KG/MIN 3. 291 mls/hr IV .Q24H [facility] Rx#:[id number] propofoL 1,000 mg In 56.935 Empty Bag 1 bag @ 15 MCG/ KG/MIN 4.788 mls/hr IV . [id number] [facility] Rx#:[id number] Oral 920 Tube Feeding 230 Other 120 Output: Urine 1225 625 80 Stool 1 Other: Voiding Method Indwelling Catheter Indwelling Catheter # Bowel Movements 1 ABP, PAP, CO, CI - Last Documented Arterial Blood Pressure 125/68 - Exam No acute distress, the patient extubated to 3 L of oxygen by nasal cannula. Calm and comfortable. Not using accessory muscles of breathing. Communicating and able to answer questions appropriately. HEENT examination is grossly unremarkable. Mucous membranes are moist. No oral lesions. Neck supple. Full range of motion. No adenopathy thyromegaly or neck vein distention. Cardiovascular examination reveals regular rhythm rate. S1-S2 normal. No S3 or S4. No discernible murmur noted. Heart sounds are distant. The patient is currently wearing a LifeVest. Lungs reveal scattered bilateral mild to moderate rhonchorous breath sounds. No wheezes. No crackles. Breath sounds equal bilaterally. Abdomen soft without bowel sounds. No masses or tenderness. Extremities are intact. No cyanosis clubbing and there is trace edema lower extremities bilaterally and some in the upper extremities. Skin is without rash or lesion. Neurologic the patient has generalized global weakness in all 4 extremities. Weak cough. Able to communicate. No focal neurological deficits. - Labs CBC & Chem 7: 01/10/25 11:45 01/10/25 04:00 Labs: Abnormal Lab Results - Last 24 Hours (Table) 01/09/25 01/09/25 01/09/25 Range/Units 05:00 10:04 11:19 WBC (4.50-10.00) 10*3/uL RBC (4.40-5.60) 10*6/uL Hgb (13.0-17.0) g/dL Hct (39.6-50.0) % MCV (80.0-97.0) fL MCHC (32.0-37.0) g/dL Immature Gran # (0.00-0.04) 10*3/uL Neutrophils # (1.80-7.70) 10*3/uL Monocytes # (0.20-1.00) 10*3/uL ABG pO2 (83-108) mmHg ABG O2 Saturation (94-97) % Hemoglobin (13.0-17.5) gm/dL Potassium (3.5-5.1) mmol/L Carbon Dioxide (22-30) mmol/L BUN (9-20) mg/dL Glucose (74-99) mg/dL POC Glucose (mg/dL) 149 H (70-110) mg/dL Calcium (8.4-10.2) mg/dL Ammonia 51 H (<30) umol/L Procalcitonin 0.99 H (0.02-0.50) ng/mL 01/09/25 01/09/25 01/09/25 Range/Units 17:46 17:54 23:25 WBC (4.50-10.00) 10*3/uL RBC (4.40-5.60) 10*6/uL Hgb (13.0-17.0) g/dL Hct (39.6-50.0) % MCV (80.0-97.0) fL MCHC (32.0-37.0) g/dL Immature Gran # (0.00-0.04) 10*3/uL Neutrophils # (1.80-7.70) 10*3/uL Monocytes # (0.20-1.00) 10*3/uL ABG pO2 125 H (83-108) mmHg ABG O2 Saturation 99.2 H (94-97) % Hemoglobin 7.5 L (13.0-17.5) gm/dL Potassium (3.5-5.1) mmol/L Carbon Dioxide (22-30) mmol/L BUN (9-20) mg/dL Glucose (74-99) mg/dL POC Glucose (mg/dL) 181 H 114 H (70-110) mg/dL Calcium (8.4-10.2) mg/dL Ammonia (<30) umol/L Procalcitonin (0.02-0.50) ng/mL 01/10/25 01/10/25 01/10/25 Range/Units 04:00 05:00 06:00 WBC 26.98 H (4.50-10.00) 10*3/uL RBC 2.21 L (4.40-5.60) 10*6/uL Hgb 6.9 L* (13.0-17.0) g/dL Hct 21.8 L (39.6-50.0) % MCV 98.6 H (80.0-97.0) fL MCHC 31.7 L (32.0-37.0) g/dL Immature Gran # 0.96 H (0.00-0.04) 10*3/uL Neutrophils # 20.37 H (1.80-7.70) 10*3/uL Monocytes # 2.52 H (0.20-1.00) 10*3/uL ABG pO2 (83-108) mmHg ABG O2 Saturation (94-97) % Hemoglobin (13.0-17.5) gm/dL Potassium 2.8 L (3.5-5.1) mmol/L Carbon Dioxide 21 L (22-30) mmol/L BUN 30 H (9-20) mg/dL Glucose 125 H (74-99) mg/dL POC Glucose (mg/dL) 146 H (70-110) mg/dL Calcium 7.8 L (8.4-10.2) mg/dL Ammonia (<30) umol/L Procalcitonin (0.02-0.50) ng/mL Microbiology - Last 24 Hours (Table) 01/07/25 10:24 Blood Culture - Preliminary Blood Assessment and Plan Plan: Acute hypoxic respiratory failure secondary to pulmonary edema with secondary acute hypoxic respiratory failure and subsequent V. tach induced cardiac arrest, improved and the patient's oxygenation is also improved and the patient was extubated on 01/09/2025, currently on 3 L of oxygen by nasal cannula [id number] cardiac arrest likely from V. tach. Repeat cardiac arrest likely from V. tach on 01/02/2025. The patient is hypotensive, probably cardiogenic in nature the patient is currently off pressors.. No significant cardiac arrhythmias and the patient is currently on Oral amiodarone 200 mg p.o. daily and the patient was also started on metoprolol 12.5 mg p.o. twice a day. The current cardiac rhythm remains sinus and the patient has not developed any further cardiac arrhythmias. Hypotension, multifactorial. The patient has severe cardiomyopathy in addition to intravascular volume depletion probably recovered with fluids and the patient is currently off pressors. Diarrhea, stool for C. difficile has been negative and this is probably due to the chronic pancreatic insufficiency, currently on Imodium. Diarrhea has murphy bsided. Cardiomyopathy, EF 20 to 25%, nonischemic, possible Takotsubo, repeat echo 30- 35% Low-grade fever with leukocytosis, currently under investigation. The patient remains on broad-spectrum antibiotics including a combination of Zosyn and Eraxis. Cultures are negative the patient is currently afebrile. White cell count is improving. Left pneumothorax, S/P Thora vent placement. The Thora vent was removed on 01/07/2025 and the follow-up chest x-ray shows no evidence of any pneumothorax Acute kidney injury, likely secondary to diarrhea intravascular depletion, responded to IV fluids and the creatinine is improved History of chronic pancreatitis. Hyperammonemia, improved and the repeat ammonia level is 51 chronic alcohol abuse and alcoholic liver disease History of splenic vein thrombosis. History of syncope. History of chronic diarrhea. Lactic acidosis. Hypocalcemia, treated Hypomagnesemia, treated Leukocytosis, improving, currently on a combination of Zosyn and Eraxis, essentially empiric antibiotic coverage. Chronic cholecystitis Plan: Patient is currently on 3 Suboxone by nasal cannula Hemodynamically stable on no pressors Amiodarone 200 mg p.o. daily metoprolol 12.5 mg p.o. twice a day Cardiac rhythm is sinus Monitor white cell count and fever Continue broad-spectrum antibiotics and the patient is currently combination of Zosyn and Eraxis monitor diarrhea and stool for C. difficile has been negative and the patient has chronic pancreatic insufficiency contributing to his diarrhea. Offer diet Lasix 40 mg IV every 24 hours Imodium for diarrhea Pancreatic enzyme supplements for chronic pancreatic insufficiency Will continue to monitor the progress and make further recommendations based on his condition. This evaluation was done in 33 minutes. Time with Patient: Greater than 30
--- NOTE | 2025-01-10 14:44 | P.PN ---
Subjective Progress Note Date: 01/10/25 Principal diagnosis: Reason for follow-up is pneumonia/colitis Patient is a 44-year-old male with a past medical history significant for CVA TIA reflux history of recurrent/chronic pancreatitis from alcoholism and hypertension patient was brought into the hospital for lethargy seizure activity did have a cardiac arrest/V. tach requiring shock and subsequent admitted to the hospital.Patient did have a cardiac arrest last night patient is status post resuscitation intubation and transfer the ICU also have a right-sided pneumothorax. On today's visit that is 01/11/2024, patient did have a temperature of 98.6 F this morning patient has been extubated and is currently breathing comfortably on 2 L nasal cannula oxygen he denies having any chest pain did have a cough no vomiting or any other changes reported. The patient white count slightly down to 24.99 creatinine 0.98 blood culture repeat so far negative Objective - Vital Signs Vital signs: Vital Signs Temp 97.7 F 01/10/25 12:00 Pulse 93 01/10/25 14:00 Resp 20 01/10/25 14:00 BP 119/93 01/10/25 12:00 Pulse Ox 100 01/10/25 14:00 FiO2 40 01/09/25 16:03 Intake & Output 01/09/25 01/10/25 01/10/25 18:59 06:59 18:59 Intake Total 2635.343 8208 201 Output Total 1226 625 955 Balance 43.272 748 -754 Weight 61.326 kg Intake: IV 563 353 201 .9NS KVO 130 220 80 .9NS Pressure Bag 33 33 21 DAPTOmycin 400 mg In 100 Sodium Chloride 0.9% 50 ml @ 100 mls/hr IVPB Q24HR [facility] Rx#:[id number] Magnesium Sulfate-D5w Pmx 100 1 gm In Dextrose/Water 1 100ml.bag @ 100 mls/hr IVPB Q1H [facility] Rx#: [id number] Piperacillin-Tazobactam 3 200 100 100 .375 gm In Sodium Chloride 0.9% 100 ml @ 25 mls/hr IVPB Q8HR [facility] Rx# :[id number] Intake, IV Titration 356.272 100 Amount Anidulafungin 200 mg In 100 100 Sodium Chloride 0.9% 200 ml @ 84 mls/hr IVPB ONCE ONE Rx#:[id number] Dexmedetomidine/0.9% NaCl 68.214 (Pmx) 400 mcg In Empty Bag 1 bag @ 0.2 MCG/KG/HR 3.09 mls/hr IV .Q24H [facility] Rx#:[id number] Magnesium Sulfate-D5w Pmx 100 1 gm In Dextrose/Water 1 100ml.bag @ 100 mls/hr IVPB Q1H [facility] Rx#: [id number] Norepinephrine 8 mg In 31.123 Sodium Chloride 0.9% 250 ml @ 0.03 MCG/KG/MIN 3. 291 mls/hr IV .Q24H [facility] Rx#:[id number] propofoL 1,000 mg In 56.935 Empty Bag 1 bag @ 15 MCG/ KG/MIN 4.788 mls/hr IV . [id number] [facility] Rx#:[id number] Oral 920 Tube Feeding 230 Other 120 Output: Urine 1225 625 955 Stool 1 Other: Voiding Method Indwelling Catheter Indwelling Catheter # Bowel Movements 1 1 ABP, PAP, CO, CI - Last Documented Arterial Blood Pressure 133/65 - Exam GENERAL DESCRIPTION: Middle-age male intubated on the vent RESPIRATORY SYSTEM: Unlabored breathing , decreased breath sounds at bases HEART: S1 S2 regular rate and rhythm , ABDOMEN: Soft , no tenderness EXTREMITIES: No edema feet - Labs CBC & Chem 7: 01/10/25 11:45 01/10/25 04:00 Labs: Abnormal Lab Results - Last 24 Hours (Table) 01/09/25 01/09/25 01/09/25 Range/Units 05:00 17:46 17:54 WBC (4.50-10.00) 10*3/uL RBC (4.40-5.60) 10*6/uL Hgb (13.0-17.0) g/dL Hct (39.6-50.0) % MCV (80.0-97.0) fL MCHC (32.0-37.0) g/dL Plt Count (140-440) 10*3/uL Immature Gran # (0.00-0.04) 10*3/uL Neutrophils # (1.80-7.70) 10*3/uL Monocytes # (0.20-1.00) 10*3/uL Basophils # (0.00-0.10) 10*3/uL ABG pO2 125 H (83-108) mmHg ABG O2 Saturation 99.2 H (94-97) % Hemoglobin 7.5 L (13.0-17.5) gm/dL Potassium (3.5-5.1) mmol/L Carbon Dioxide (22-30) mmol/L BUN (9-20) mg/dL Glucose (74-99) mg/dL POC Glucose (mg/dL) 181 H (70-110) mg/dL Calcium (8.4-10.2) mg/dL Procalcitonin 0.99 H (0.02-0.50) ng/mL 01/09/25 01/10/25 01/10/25 Range/Units 23:25 04:00 05:00 WBC 26.98 H (4.50-10.00) 10*3/uL RBC 2.21 L (4.40-5.60) 10*6/uL Hgb 6.9 L* (13.0-17.0) g/dL Hct 21.8 L (39.6-50.0) % MCV 98.6 H (80.0-97.0) fL MCHC 31.7 L (32.0-37.0) g/dL Plt Count (140-440) 10*3/uL Immature Gran # 0.96 H (0.00-0.04) 10*3/uL Neutrophils # 20.37 H (1.80-7.70) 10*3/uL Monocytes # 2.52 H (0.20-1.00) 10*3/uL Basophils # (0.00-0.10) 10*3/uL ABG pO2 (83-108) mmHg ABG O2 Saturation (94-97) % Hemoglobin (13.0-17.5) gm/dL Potassium 2.8 L (3.5-5.1) mmol/L Carbon Dioxide 21 L (22-30) mmol/L BUN 30 H (9-20) mg/dL Glucose 125 H (74-99) mg/dL POC Glucose (mg/dL) 114 H (70-110) mg/dL Calcium 7.8 L (8.4-10.2) mg/dL Procalcitonin (0.02-0.50) ng/mL 01/10/25 01/10/25 01/10/25 Range/Units 06:00 11:45 11:53 WBC 24.99 H (4.50-10.00) 10*3/uL RBC 2.39 L (4.40-5.60) 10*6/uL Hgb 7.4 L (13.0-17.0) g/dL Hct 24.0 L (39.6-50.0) % MCV 100.4 H (80.0-97.0) fL MCHC 30.8 L (32.0-37.0) g/dL Plt Count 469 H (140-440) 10*3/uL Immature Gran # 0.94 H (0.00-0.04) 10*3/uL Neutrophils # 18.96 H (1.80-7.70) 10*3/uL Monocytes # 2.55 H (0.20-1.00) 10*3/uL Basophils # 0.14 H (0.00-0.10) 10*3/uL ABG pO2 (83-108) mmHg ABG O2 Saturation (94-97) % Hemoglobin (13.0-17.5) gm/dL Potassium (3.5-5.1) mmol/L Carbon Dioxide (22-30) mmol/L BUN (9-20) mg/dL Glucose (74-99) mg/dL POC Glucose (mg/dL) 146 H 145 H (70-110) mg/dL Calcium (8.4-10.2) mg/dL Procalcitonin (0.02-0.50) ng/mL Microbiology - Last 24 Hours (Table) 01/07/25 10:24 Blood Culture - Preliminary Blood Assessment and Plan (1) Sepsis Current Visit: Yes Status: Acute Code(s): A41.9 - SEPSIS, UNSPECIFIED ORGANISM SNOMED Code(s): 07657032 (2) Aspiration pneumonitis Current Visit: Yes Status: Acute Code(s): J69.0 - PNEUMONITIS DUE TO INHALATION OF FOOD AND VOMIT SNOMED Code(s): 267836800 (3) Colitis Current Visit: Yes Status: Acute Code(s): K52.9 - NONINFECTIVE LUIS ROENTERITIS AND COLITIS, UNSPECIFIED SNOMED Code(s): 63214939 (4) Cholecystitis Current Visit: Yes Status: Acute Code(s): K81.9 - CHOLECYSTITIS, UNSPECIFIED SNOMED Code(s): 95130378 Plan: 1patient presented to hospital with sepsis in this patient who did have tachycardia hypotension elevated white count meeting criteria for SIRS source likely aspiration pneumonitis as the patient did have intractable nausea vomiti ng before the patient has been brought to the hospital patient also have abnormality on the abdominal pelvis CT concerning for colitis question of infectious etiology need to be ruled out patient did not recall if he has been on antibiotic in the recent past 2-sputum cultures collected on 12/31/2024 reported as yeast 3-patient CT as well as ultrasound has been suspicious for cholecystitis HIDA scan has been suspicious for chronic cholecystitis General Surgery following the patient 4patient did have a cardiac arrest, patient was resuscitated and intubated in the ICU, patient did have a negative MRSA nasal screen repeat cultures so far negative 5patient did have improvement in his fever pending white count started trending down we will treat the patient with Zosyn and Eraxis, monitor clinical course closely Dictation was produced using [employer] dictation software. please excuse any grammatical, word or spelling errors. Time with Patient: Less than 30
[2025-01-10] MEDS: ANIDULAFUNGIN 100 MG in SODIUM CHLORIDE 0.9% 100 ML IVPB SCH (17:08)
[2025-01-10 17:39] LABS: Glucose,Whole Blood 140 mg/dL (70-110)
[2025-01-10 20:31] LABS: Glucose,Whole Blood 164 mg/dL (70-110)
[2025-01-11 05:53] LABS: Glucose,Whole Blood 120 mg/dL (70-110)
[2025-01-11 08:10] LABS: HCT 23.6 % (39.6-50.0); HGB 7.1 g/dL (13.0-17.0); MCH 30.9 pg (27.0-32.0); MCHC 30.1 g/dL (32.0-37.0); MCV 102.6 fL (80.0-97.0); Platelet Count 491 10*3/uL (140-440); RBC 2.30 10*6/uL (4.40-5.60); RDW 22.2 % (11.5-14.5); WBC 22.74 10*3/uL (4.50-10.00)
[2025-01-11 08:11] LABS: African American GFR (CKD) >90 (>60 ml/min/1.73 sqM); Anion Gap 16 mmol/L; Blood Urea Nitrogen 26 mg/dL (9-20); Calcium 8.3 mg/dL (8.4-10.2); Carbon Dioxide 18 mmol/L (22-30); Chloride 110 mmol/L (98-107); Glucose 112 mg/dL (74-99); Non-African American GFR(CKD) >90 (>60 ml/min/1.73 sqM); Sodium 144 mmol/L (137-145)
[2025-01-11 08:21] LABS: Potassium 3.5 mmol/L (3.5-5.1)
[2025-01-11 09:15] LABS: Lymphocytes # (M) 2.05 k/uL (1.0-4.8); Monocytes # (M) 2.05 k/uL (0-1.0); Neutrophils # (M) 18.65 k/uL (1.3-7.7); Neutrophils % (M) 82 %; Total Cells Counted 100
[2025-01-11 09:16] LABS: Stomatocytes Present
--- NOTE | 2025-01-11 10:54 | PN ---
PROGRESS NOTE DATE OF SERVICE: 01/10/2025 SUBJECTIVE: This 44-year-old gentleman who was admitted with cardiac arrest secondary to ventricular tachycardia, is being closely monitored at this time. The patient is complaining of severe pain. The patient is still being monitored in ICU. The patient is extubated at this time. PAST MEDICAL HISTORY: Reviewed. REVIEW OF SYSTEMS: A 14-point Review of Systems negative except as mentioned earlier. CURRENT MEDICATIONS: Reviewed. PHYSICAL EXAMINATION: VITAL SIGNS: Pulse is 97, blood pressure 130/62, respirations 20. HEENT: Conjunctivae normal. NECK: Normal. CARDIOVASCULAR: S1, S2. RESPIRATION: Breath sounds diminished at the bases. Few scattered rhonchi. ABDOMEN: Soft. NERVOUS SYSTEM: Diffusely weak. LABORATORY DATA: WBC 24.9. The cultures are Angleica glabrata and Angelica dubliniensis from the sputum. ASSESSMENT: 1. Cardiac arrest secondary to ventricular tachycardia secondary to multiple electrolyte abnormalities. 2. History of EtOH. 3. Candidal pneumonia from the sputum. 4. Pto-wz-ivfrkhoc cardiac arrest. 5. Cardiomyopathy, ejection fraction 20% to 25%, nonischemic, possible takotsubo. 6. Left pneumothorax, status post . 7. Multiple complex medical issues. RECOMMENDATIONS: Recommend to continue current management and continue symptomatic treatment.. The most recent chest x-ray showed some improvement. The patient is on antifungal and antibiotic, at this time, empirically. Recommend repeat labs, repeat x-rays. Closely follow with Cardiology. Start small dose of pain medication. Further recommendations to follow. MMANGELOL / NICOLN: [id number] / MTDD
[2025-01-11 11:28] LABS: Glucose,Whole Blood 170 mg/dL (70-110)
[2025-01-11] MEDS ORDERED: Magnesium Replacement Protocol 1 EACH MISC MISCELLANE PRN (11:48)
[2025-01-11] MEDS: POTASSIUM CHLORIDE ER 20 MEQ TAB.ER PO SCH (12:03)
[2025-01-11] MEDS: MAGNESIUM SULFATE-D5W PMX 1 GM in DEXTROSE/WATER 1 100ML.BAG IVPB ONE (13:31)
--- NOTE | 2025-01-11 15:23 | P.PN ---
Subjective Progress Note Date: 01/11/25 Principal diagnosis: Reason for follow-up is pneumonia/colitis Patient is a 44-year-old male with a past medical history significant for CVA TIA reflux history of recurrent/chronic pancreatitis from alcoholism and hypertension patient was brought into the hospital for lethargy seizure activity did have a cardiac arrest/V. tach requiring shock and subsequent admitted to the hospital.Patient did have a cardiac arrest last night patient is status post resuscitation intubation and transfer the ICU also have a right-sided pneumothorax. On today's visit that is 01/11/2025, Patient is afebrile patient is currently on room air and denies having any shortness of breath, the patient denies any chest pain or any worsening cough, the patient denies any nausea vomiting did not have any abdominal pain and no diarrhea, patient however has been complaining of generalized bodyaches and wants more pain medication. Patient white count is down to 22.74 creatinine 0.86 blood and sputum culture have been negative Objective - Vital Signs Vital signs: Vital Signs Temp 97.9 F 01/10/25 23:27 Pulse 96 01/11/25 12:05 Resp 16 01/11/25 12:00 BP 137/95 01/11/25 12:00 Pulse Ox 100 01/11/25 12:00 FiO2 21 01/11/25 08:40 Intake & Output 01/10/25 01/11/25 01/11/25 18:59 06:59 18:59 Intake Total 1893 10 Output Total 1220 Balance 673 10 Intake: IV 393 10 .9NS KVO 160 .9NS Pressure Bag 33 Anidulafungin 100 mg In 100 Sodium Chloride 0.9% 100 ml @ 84 mls/hr IVPB DAILY @1600 [facility] Rx#:[id number] Invasive Line 8 10 Piperacillin-Tazobactam 3 100 .375 gm In Sodium Chloride 0.9% 100 ml @ 25 mls/hr IVPB Q8HR [facility] Rx# :[id number] Oral 1500 Output: Urine 1220 Other: Voiding Method Indwelling Catheter Indwelling Catheter Indwelling Catheter # Bowel Movements 1 ABP, PAP, CO, CI - Last Documented Arterial Blood Pressure 153/76 - Exam GENERAL DESCRIPTION: Middle-age male intubated on the vent RESPIRATORY SYSTEM: Unlabored breathing , decreased breath sounds at bases HEART: S1 S2 regular rate and rhythm , ABDOMEN: Soft , no tenderness EXTREMITIES: No edema feet - Labs CBC & Chem 7: 01/11/25 07:58 01/11/25 07:11 Labs: Abnormal Lab Results - Last 24 Hours (Table) 01/10/25 01/10/25 01/11/25 Range/Units 17:38 20:24 05:51 WBC (4.50-10.00) 10*3/uL RBC (4.40-5.60) 10*6/uL Hgb (13.0-17.0) g/dL Hct (39.6-50.0) % MCV (80.0-97.0) fL MCHC (32.0-37.0) g/dL Plt Count (140-440) 10*3/uL Immature Gran # (0.00-0.04) 10*3/uL Neutrophils # (Manual) (1.3-7.7) k/uL Monocytes # (Manual) (0-1.0) k/uL Chloride (98-107) mmol/L Carbon Dioxide (22-30) mmol/L BUN (9-20) mg/dL Glucose (74-99) mg/dL POC Glucose (mg/dL) 140 H 164 H 120 H (70-110) mg/dL Calcium (8.4-10.2) mg/dL 01/11/25 01/11/25 01/11/25 Range/Units 07:11 07:58 11:27 WBC 22.74 H (4.50-10.00) 10*3/uL RBC 2.30 L (4.40-5.60) 10*6/uL Hgb 7.1 L (13.0-17.0) g/dL Hct 23.6 L (39.6-50.0) % MCV 102.6 H (80.0-97.0) fL MCHC 30.1 L (32.0-37.0) g/dL Plt Count 491 H (140-440) 10*3/uL Immature Gran # 0.70 H (0.00-0.04) 10*3/uL Neutrophils # (Manual) 18.65 H (1.3-7.7) k/uL Monocytes # (Manual) 2.05 H (0-1.0) k/uL Chloride 110 H (98-107) mmol/L Carbon Dioxide 18 L (22-30) mmol/L BUN 26 H (9-20) mg/dL Glucose 112 H (74-99) mg/dL POC Glucose (mg/dL) 170 H (70-110) mg/dL Calcium 8.3 L (8.4-10.2) mg/dL Microbiology - Last 24 Hours (Table) 01/07/25 10:24 Blood Culture - Preliminary Blood Assessment and Plan (1) Sepsis Current Visit: Yes Status: Acute Code(s): A41.9 - SEPSIS, UNSPECIFIED ORGANISM SNOMED Code(s): 65386304 (2) Aspiration pneumonitis Current Visit: Yes Status: Acute Code(s): J69.0 - PNEUMONITIS DUE TO INHALATION OF FOOD AND VOMIT SNOMED Code(s): 685856291 (3) Colitis Current Visit: Yes Status: Acute Code(s): K52.9 - NONINFECTIVE GASTROENTERITIS AND COLITIS, UNSPECIFIED SNOMED Code(s): 57700192 (4) Cholecystitis Current Visit: Yes Status: Acute Code(s): K81.9 - CHOLECYSTITIS, UNSPECIFIED SNOMED Code(s): 29163365 Plan: 1patient presented to hospital with sepsis in this patient who did have tachycardia hypotension elevated white count meeting criteria for SIRS source l ikely aspiration pneumonitis as the patient did have intractable nausea vomiting before the patient has been brought to the hospital patient also have abnormality on the abdominal pelvis CT concerning for colitis question of infectious etiology need to be ruled out patient did not recall if he has been on antibiotic in the recent past 2-sputum cultures collected on 12/31/2024 reported as yeast 3-patient CT as well as ultrasound has been suspicious for cholecystitis HIDA scan has been suspicious for chronic cholecystitis General Surgery following the patient 4patient did have a cardiac arrest, patient was resuscitated and intubated in the ICU, patient did have a negative MRSA nasal screen repeat cultures so far negative 5patient did have improvement in his fever pattern and white count started trending down 6we will treat the patient with Zosyn and Eraxis, continue supportive care Dictation was produced using [employer] dictation software. please excuse any grammatical, word or spelling errors. Time with Patient: Less than 30
[2025-01-11 16:35] LABS: Glucose,Whole Blood 158 mg/dL (70-110)
--- NOTE | 2025-01-11 18:54 | P.PN ---
Subjective Progress Note Date: 01/11/25 Cardiopulmonary arrest. This is a 44-year-old white male brought into the emergency room earlier this mo rning by EMS with altered mental status and seizure-like activity. Apparently the patient is known to have past medical history of alcohol use, chronic pancreatitis, pancreatic pseudocyst, history of hypertension, previous history of TIA, patient had a sudden feeling of dizziness, and asked his roommate to call EMS. Apparently upon arrival of EMS he was found to have seizure-like activity and went unresponsive on the monitor the patient was noted to have ventricular tachycardia, CPR was started and the patient received 1 shock. Patient became conscious again, and his rhythm came back with return of circulation. Apparently for the last few days the patient has been experiencing episodes of nausea and vomiting and episodes of low blood sugar. In addition, patient has been complaining of episodes of diarrhea for the last 2 weeks. Patient normally follows up at [facility] for his pancreatitis and pseudocyst. He is also known to have history of splenic vein thrombosis, maint ained on anticoagulation. And has been taking Eliquis until yesterday. Patient drinks occasionally at this point, used to be a heavy drinker in the past. I evaluated the patient in the ER, and considering his cardiac arrest history, I recommended admitting the patient to the ICU, and he is to be seen by other consultants including cardiology. During my evaluation the patient was not in any distress, he was hemodynamically stable, all his labs were reviewed. Patient was seen today on 12/25/2024, remains in the ICU mostly because of his profound electrolyte abnormalities including hypocalcemia, hypomagnesium , hypokalemia, these are all being addressed accordingly mostly related to his GI symptoms and his pancreatitis. As well as diarrhea and nausea and vomiting. Patient is not in any distress, he is on 2 L nasal cannula, has been receiving potassium almost every 2 hours 20 mEq orally remains empirically on Zosyn, continues to have some vague abdominal pain and discomfort. WBC count today is 12.2 hemoglobin 9.5 electrolytes showed low sodium of 131 low potassium 2.9 but few hours later it was up to 3.8 renal functioning is normal calcium is up to 5.8 today. Add magnesium is up to 2.1, these are all being addressed daily. Cardiac sheppard the patient is in sinus rhythm, no further episodes of tachyarrhythmia. Seen today on 12/26/2024, patient remains in the ICU, feeling better, he has no active pulmonary symptoms no GI symptoms and no cardiac symptoms. Labs have shown significant improvement his potassium today is 4.5 calcium is up to 6 however his albumin is 1.9 which makes his corrected calcium 7.68., Improved, but not up to 8.4 or higher. Hence would recommend more calcium gluconate to be given for this patient. Magnesium not done today however was 2.1 yesterday. Seen today on 12/27/2024, patient is doing well, asymptomatic. Has some vague abdominal pain no cough no wheezing no shortness of breath no chest pain. No palpitations CBC showed leukocytosis WBC count of 15.9 hemoglobin 8.8. His electrolytes are normal potassium is 3.8 calcium is up to 6.8/uncorrected to albumin. 01/02/25 - He was seen and examined in the ICU, room 258. He was previously seen by pulmonary/critical care up until 12/27/2024, at which time we signed off care. Since that time, on 12/30/2024 he underwent a cardiac catheterization with Dr. Rosario which revealed normal coronary arteries, cardiomyopathy of nonischemic etiology. He was being followed by infectious disease due to possible colitis, and had been placed on antibiotics, general surgery for exploratory laparotomy in regards to cholecystitis and colitis. Late in the evening on 01/01/2025 a CODE BLUE was called in which the patient had diminished breath sounds and was tachypneic. He became bradycardic and then went asystole, at which time CPR was initiated. CODE BLUE as per the event note in the patient's chart. ROSC was achieved with 2 rounds of epinephrine. At that time patient was intubated, transferred to the ICU and initiated on a bicarb drip. He was noted to have pneumothorax of the left lung. He was intubated on 01/01/2025 and has not been mechanically ventilated with a tidal volume 400, respiratory rate 22, FiO2 100% and PEEP of 10. Most recent blood gas showed pO2 66, pCO2 45 and pH 7.37. Most recent labs showed WBCs 27.2, hemoglobin 6.9, hematocrit 21.8, platelet 339; sodium 141, potassium 2.6, bicarb 20, BUN <2, creatinine 0.48, lactic acid 11.7, calcium 5.6, ionized calcium 3.4, magnesium 1.2, total bilirubin 1.2, AST 99, ALT 29, alkaline phosphatase 183, TSH 0.551. He is currently receiving norepinephrine 0.39 mcg/kg/min, and sedated with fentanyl at 1 mcg/kg/h, propofol at 50 mcg/kg/h, and received an additional 10 mg of Nimbex prior to left radial arterial line placement. He continues receiving vancomycin, Zosyn, Flagyl and Diflucan. Progress note dated January 03, 2025. This is a 44-year-old male seen in room 258. He remains on mechanical ventilator. He is on volume assist-control, rate 22, tidal volume 400, FiO2 70%, PEEP of 10. Blood gases show pO2 123, pCO2 50, pH of 7.46. He has a left Thora vent in place. He is on fentanyl at 1.5 mcg/kg/h, D5W with 3 ampoules of sodium bicarbonate at 150 cc an hour, propofol at 50 mcg/kg/min, saline at 30 cc an hour, norepinephrine at 6 mcg/min, and vasopressin at 0.03 units/min. Sodium bicarbonate drip can be discontinued. The patient is currently also on fluconazole, Flagyl, vancomycin, and Zosyn. Current labs include a white count of 19.7, hemoglobin 8.3, hematocrit 25, and platelet count 304,000. Sodium 134, potassium 2.9, chloride 94, CO2 35, BUN 2, creatinine 0.63. Calcium is 5.3, and ionized calcium is low at 3.4. Albumin is 1.4. Cultures thus far are negative, save for the sputum showing evidence of yeast. Chest x-ray shows the left lung to be expanded, with a very tiny pneumothorax. There is diffuse changes throughout, largely unchanged. Progress note dated January 04, 2025. 44-year-old male seen today in room 258. He continues on volume assist-control, rate 22, tidal volume 400, 60% FiO2, PEEP of 10. Blood gases show pO2 of 93, pCO2 50, pH of 7.49. Is currently on propofol at 40 mcg/kg/min, vasopressin at 0.02 units/min, saline at 40 cc an hour, and tube feedings, at 21 cc an hour, which is goal. He continues on Diflucan, Flagyl, and Zosyn. White count is 23.2, hemoglobin 9, hematocrit 26.7, and platelet count is 319,000. Sodium 134, potassium 3.8, chloride 92, CO2 37, BUN is 5, with creatinine 0.79. Glucose 196. Calcium 6.5. Magnesium 1.6. Tiny apical left pneumothorax. Thora vent device is still noted. On 01/05/2025, the patient is being seen for a follow-up. This morning, the patient remains intubated on a mechanical ventilator. The patient is on propo fol running at 40 mcg/kg/min. Earlier this morning, the patient was noted to be slightly hypotensive and started on norepinephrine which is currently running at low-dose of 0.01 mcg/kg/min. Nevertheless, the dose needs to be adjusted as the patient continues to have and run a low blood pressure. He remains on the mechanical ventilator assist-control mode rate of 22, tidal volume of 400, FiO2 50% with a PEEP of 10. Fluid balance is -2.1 L over the past 24 hours. His cardiac rhythm is sinus. He is covered with broad-spectrum antibiotics and the patient is currently on a combination of Zosyn and Flagyl and Diflucan and he remains on IV Lasix. He is also on tube feeds and the patient is using [employer] 1.4 at a rate of 21 cc an hour. The blood work from today shows a WBC count of 17.8 with a hemoglobin of 9.8 and a platelet count of 272. Blood gas showed a pH of 7.53 with a [id number] and PO2 of 191. BUN is 10 with a creatinine of 1.03 and electrolytes show a sodium level of 135, serum bicarb is at 37. No other significant events overnight. As stated earlier, the patient has non ischemic cardiomyopathy. A outpatient cardiac arrest related to V. tach and another cardiac arrest on 01/02/2025 with development of acute pulmonary edema. During the resuscitation and post CPR, he also developed a left-sided pneumothorax. Chest x-ray from today shows ongoing pulmonary edema. Pne umothorax has recovered. No evidence of any air leak and the patient has a Thora vent over the left anterior chest. On 01/06/2025, the patient is being seen for a follow-up. This morning, the breann ent remains intubated on the mechanical ventilator. He is on propofol which was at 40 mcg and this was dropped down to 30 mcg/kg/min. The patient is currently off pressors. IV fluids are currently at KVO and the fluid balance is -2.1 L over the past 24 hours and the patient received Lasix 40 mg IV every 12 hours. The patient is on assist-control mode of mechanical ventilation at rate of 22, tidal volume of 400, FiO2 40% with a PEEP of 8. Blood gas showed a pH of 7.54 with a [id number] and PO2 of 87. The follow-up chest x-ray from today is showing minimal left apical pneumothorax, Thora vent is still in place. Multiple lines and catheters are still in place and the patient has a left lower lobe pulmonary infiltrate. Findings are essentially stable compared to yesterday. Rest of the labs show a white cell count of 20 with a hemoglobin of 10.3 and a platelet count of 282. The blood gas showed a pH of 7.54 with a PCO2 of 41 and PO2 of 87. Sodium level is at 139 with a potassium level of 4.6, BUN 16 with a creatinine of 1.1. Calcium levels at 7.8. Stool for C. difficile has been negative. The patient is currently on Zosyn and Diflucan. Norepinephrine has been discontinued and the patient remains on IV Lasix with excellent urine output. A sedation holiday is to be given today. The Thora vent is to be capped. 01/08/2020 time, the patient is being seen for a follow-up. The patient remains on propofol running at 40 mcg/kg/min. He remains intubated on the mechanical ventilator. He is on assist-control at rate of 22, tidal volume of 400, 30 to 40% with a PEEP of 6. Blood gas showed a pH of 7.52 with a [id number] and PO2 of 87. His fluid balance is +1.6 L. However, it is not an accurate measurement as the patient is having profuse diarrhea and he seems to be more so intravascularly depleted and the patient is currently on low-dose norepinephrine running at 0.04 mcg/kg/min. He remains on [employer] at rate of 40 cc an hour. Cardiac rhythm is sinus at this point. IV fluids are currently at KVO. Broad- spectrum antibiotics are in the form of daptomycin and Zosyn and Diflucan. ID is on the case managing his antibiotics. There was concern of a chronic cholecy stitis. Nevertheless, LFTs are normal and the patient has no signs or symptoms of an acute cholecystitis based on clinical evaluation and ultrasound imaging. The patient's sodium levels at 141 with a potassium level of 4.7, chlorides 105 with a bicarb of 27. BUN is 22 with a creatinine of 1.23. He has sustained an acute kidney injury as the patient's baseline creatinine was at 0.6 from few day s back. White cell count remains elevated at 26.2 with a heme of 8.8 and a platelet count of 252. As such, there is a drop in hemoglobin compared to yesterday. Chest x-ray was also reviewed and it shows atelectatic changes and possibly a small effusion in the left lung base. All of the catheters are in good location. No significant cardiac arrhythmias and the patient has been taken off the IV amiodarone drip and the patient is currently on oral amiodarone at a dose of 200 mg p.o. daily. On a separate note, the chest x-ray from today shows no evidence of any pneumothorax. Thora vent has been capped for the past 24 hours. 01/08/2025, the patient is being seen for a follow-up. The patient this morning is on propofol running at 40 mcg/kg/min. Remains on a mechanical ventilator, assist-control mode rate of 22, tidal volume of 400, FiO2 40% with a PEEP of 6. Blood gas showed pH of 7.48 with a PCO2 of 34 and PO2 of 89. Chest x-ray shows adequate expansion of both lungs. No acute airspace disease or consolidation is noted. The patient did have some hypotension and acute kidney injury on yesterday's evaluation. Based on that, the patient was given a total of 1.5 L of bolus of lactated Ringer. Fluid balance is +2.6 L over the past 24 hours. The patient is currently off pressors. He is having limited diarrhea. IV fluids are currently at KVO. He is receiving enteral feeding [employer] at a rate of 40 cc an hour. No abdominal distention. No fever. No cardiac arrhythm ias and the cardiac rhythm remains sinus. The white cell count is higher compared to yesterday. The white cell count is currently up to 33 with a hemoglobin of 8.6 and a platelet count of 280. The sodium is at 141, potassium is at 4.4, BUN 27 with a creatinine of 1.1. Stool for C. difficile has been negative. He is running a low-grade temperature of 100.0. He is currently on a combination of Zosyn, daptomycin and Diflucan. He remains on amiodarone 200 mg p.o. daily. He is receiving Lasix 40 mg IV every 24 hours. He remains on metoprolol 12.5 mg p.o. twice a day. He is also on midodrine. No pressors for now. On 01/09/2025, patient is being seen for a follow-up. The patient remains on propofol running at 50 mcg/kg/min. The patient was given a sedation holiday yesterday and he was taken off the propofol. He had significant tachypnea and respiratory distress and some degree of agitation. The patient was trialed on Precedex and he failed and based on it, the patient was placed back on propofol. This morning, he seems to be calm and comfortable and arousable. Will do a gra dual wean of his propofol. Meanwhile, he remains on mechanical ventilator, assist-control mode at rate of 22, tidal volume of 400, FiO2 40% with a PEEP of 6. Blood gas showed a pH of 7.49 with a [id number] and PO2 124. The patient remains on enteral feeding for nutritional support, [employer] at rate of 50 cc an hour. Fluid balance is +1.7 L and the patient continues to have diarrhea with his negative stool for C. difficile. The patient remains on Lasix 40 mg IV every 24 hours. On today's blood work, the patient's white cell count is 35.3 with a hemoglobin 7.8 and a platelet count of 346. Sodium levels at 142, BUN 30 creatinine of 1.06. Serum bicarb is 18 with a gap of 14. Ammonia level is at 51. Blood sugar is at 149. Antibiotic coverage remains unchanged and the patient remains on the combination of Zosyn and daptomycin and Diflucan. Remains on amiodarone 200 mg p.o. daily. Remains on metoprolol 12.5 mg p.o. twice daily and the patient is not having any significant cardiac arrhythmias. He is currently afebrile. Tmax over the past 24 hours was 100 degrees. On 01/10/2025, the patient is extubated the patient is currently on 3 L of oxygen by nasal cannula. He is weak and lethargic. Awake and arousable and he is able to communicate. Is complaining of diffuse bodyaches. He is on no pressors. Fluid balance is +1.7 L over the past 24 hours. Hemoglobin is currently at 6.9. The patient remains off Precedex. White cell count is improving. The patient is currently afebrile. Based on his ongoing episodes of fever and leukocytosis, antibiotic modification was done by infectious disease and the patient was started on a combination of Zosyn and Eraxis. Nevertheless, he does not have any positive blood culture. Chest x-ray findings are stable and the patient has no evidence of pneumonia. He continues to wear a LifeVest. Cardiac rhythm is sinus. Remains on Lasix 40 g IV every 24 hours. No other significant events overnight. The white cell count 24 with a heme of 7.4 and a platelet count of 469. The sodium is at 142, potassium is at 2.8, BUN 30 with a 0.9. Serum Bicarb Is 21 with a Gap of 14. The Patient Has No Vertical Neurological Deficit. Generalized Weakness. He Remains on Amiodarone and Metoprolol Post Cardiac Arrest Related to Ventricular Arrhythmia/Fibrillation. No Active Diarrhea at This Point. Remains on Midodrine. Overall Condition Is Stable and the Patient Was Successfully Extubated Yesterday. On today's evaluation of 01/11/2025, the patient is being seen on the medical floor. The patient was weaned off the mechanical ventilator and the patient was extubated and the patient was subsequently transferred to the medical floor. He is doing well. His cardiac rhythm is sinus. Tolerating his diet. Complaining of generalized body aches and pains. He is starting to eat and is able to tolerate diet and swallow. The white cell count at 22 with a hemoglobin 7.1 and platelet count of 491. BUN is 26 with a creatinine 0.8. He is afebrile. Noted his white cell count was gradually improving and the patient was covered with broad-spectrum antibiotics and the patient is currently on Zosyn and Eraxis. He has occasional diarrhea related to chronic pancreatic insufficiency. He remains weak and needs further rehabilitation. He is wearing a LifeVest. Rest of the medications remain unchanged. Objective - Vital Signs Vital signs: Vital Signs Temp 97.9 F 01/10/25 23:27 Pulse 92 01/11/25 11:52 Resp 18 01/11/25 08:19 BP 146/94 01/11/25 08:19 Pulse Ox 91 L 01/11/25 08:40 FiO2 21 01/11/25 08:40 Intake & Output 01/10/25 01/11/25 01/11/25 18:59 06:59 18:59 Intake Total 1893 10 Output Total 1220 Balance 673 10 Intake: IV 393 10 .9NS KVO 160 .9NS Pressure Bag 33 Anidulafungin 100 mg In 100 Sodium Chloride 0.9% 100 ml @ 84 mls/hr IVPB DAILY @1600 [facility] Rx#:[id number] Invasive Line 8 10 Piperacillin-Tazobactam 3 100 .375 gm In Sodium Chloride 0.9% 100 ml @ 25 mls/hr IVPB Q8HR [facility] Rx# :[id number] Oral 1500 Output: Urine 1220 Other: Voiding Method Indwelling Catheter Indwelling Catheter Indwelling Catheter # Bowel Movements 1 ABP, PAP, CO, CI - Last Documented Arterial Blood Pressure 153/76 - Exam No acute distress, the patient extubated to 2 L of oxygen by nasal cannula. Calm and comfortable. Not using accessory muscles of breathing. Communicating and able to answer questions appropriately. HEENT examination is grossly unremarkable. Mucous membranes are moist. No oral lesions. Neck supple. Full range of motion. No adenopathy thyromegaly or neck vein distention. Cardiovascular examination reveals regular rhythm rate. S1-S2 normal. No S3 or S4. No discernible murmur noted. Heart sounds are distant. The patient is currently wearing a LifeVest. Lungs reveal scattered bilateral mild to moderate rhonchorous breath sounds. No wheezes. No crackles. Breath sounds equal bilaterally. Abdomen soft without bowel sounds. No masses or tenderness. Extremities are intact. No cyanosis clubbing and there is trace edema lower extremities bilaterally and some in the upper extremities. Skin is without rash or lesion. Neurologic the patient has generalized global weakness in all 4 extremities. Weak cough. Able to communicate. No focal neurological deficits. - Labs CBC & Chem 7: 01/11/25 07:58 01/11/25 07:11 Labs: Abnormal Lab Results - Last 24 Hours (Table) 01/10/25 01/10/25 01/10/25 Range/Units 11:45 17:38 20:24 WBC 24.99 H (4.50-10.00) 10*3/uL RBC 2.39 L (4.40-5.60) 10*6/uL Hgb 7.4 L (13.0-17.0) g/dL Hct 24.0 L (39.6-50.0) % MCV 100.4 H (80.0-97.0) fL MCHC 30.8 L (32.0-37.0) g/dL Plt Count 469 H (140-440) 10*3/uL Immature Gran # 0.94 H (0.00-0.04) 10*3/uL Neutrophils # 18.96 H (1.80-7.70) 10*3/uL Neutrophils # (Manual) (1.3-7.7) k/uL Monocytes # 2.55 H (0.20-1.00) 10*3/uL Monocytes # (Manual) (0-1.0) k/uL Basophils # 0.14 H (0.00-0.10) 10*3/uL Chloride (98-107) mmol/L Carbon Dioxide (22-30) mmol/L BUN (9-20) mg/dL Glucose (74-99) mg/dL POC Glucose (mg/dL) 140 H 164 H (70-110) mg/dL Calcium (8.4-10.2) mg/dL 01/11/25 01/11/25 01/11/25 Range/Units 05:51 07:11 07:58 WBC 22.74 H (4.50-10.00) 10*3/uL RBC 2.30 L (4.40-5.60) 10*6/uL Hgb 7.1 L (13.0-17.0) g/dL Hct 23.6 L (39.6-50.0) % MCV 102.6 H (80.0-97.0) fL MCHC 30.1 L (32.0-37.0) g/dL Plt Count 491 H (140-440) 10*3/uL Immature Gran # 0.70 H (0.00-0.04) 10*3/uL Neutrophils # (1.80-7.70) 10*3/uL Neutrophils # (Manual) 18.65 H (1.3-7.7) k/uL Monocytes # (0.20-1.00) 10*3/uL Monocytes # (Manual) 2.05 H (0-1.0) k/uL Basophils # (0.00-0.10) 10*3/uL Chloride 110 H (98-107) mmol/L Carbon Dioxide 18 L (22-30) mmol/L BUN 26 H (9-20) mg/dL Glucose 112 H (74-99) mg/dL POC Glucose (mg/dL) 120 H (70-110) mg/dL Calcium 8.3 L (8.4-10.2) mg/dL 01/11/25 Range/Units 11:27 WBC (4.50-10.00) 10*3/uL RBC (4.40-5.60) 10*6/uL Hgb (13.0-17.0) g/dL Hct (39.6-50.0) % MCV (80.0-97.0) fL MCHC (32.0-37.0) g/dL Plt Count (140-440) 10*3/uL Immature Gran # (0.00-0.04) 10*3/uL Neutrophils # (1.80-7.70) 10*3/uL Neutrophils # (Manual) (1.3-7.7) k/uL Monocytes # (0.20-1.00) 10*3/uL Monocytes # (Manual) (0-1.0) k/uL Basophils # (0.00-0.10) 10*3/uL Chloride (98-107) mmol/L Carbon Dioxide (22-30) mmol/L BUN (9-20) mg/dL Glucose (74-99) mg/dL POC Glucose (mg/dL) 170 H (70-110) mg/dL Calcium (8.4-10.2) mg/dL Microbiology - Last 24 Hours (Table) 01/07/25 10:24 Blood Culture - Preliminary Blood Assessment and Plan Plan: Acute hypoxic respiratory failure secondary to pulmonary edema with secondary acute hypoxic respiratory failure and subsequent V. tach induced cardiac arrest, improved and the patient's oxygenation is also improved and the patient was extubated on 01/09/2025, currently on 2 clinically stable L of oxygen by nasal cannula [id number]-[id number] cardiac arrest likely from V. tach. Repeat cardiac arrest likely from V. tach on 01/02/2025. The patient is hypotensive, probably cardiogenic in nature the patient is currently off pressors.. No significant cardiac arrhythmias and the patient is currently on Oral amiodarone 200 mg p.o. daily and the patient was also started on metoprolol 12.5 mg p.o. twice a day. The current cardiac rhythm remains sinus and the patient has not developed any further cardiac arrhythmias. Hypotension, multifactorial. The patient has severe cardiomyopathy in addition to intravascular volume depletion probably recovered with fluids and the patient is currently off pressors. Diarrhea, stool for C. difficile has been negative and this is probably due to the chronic pancreatic insufficiency, currently on Imodium. Diarrhea has sub sided. Cardiomyopathy, EF 20 to 25%, nonischemic, possible Takotsubo, repeat echo 30- 35% Low-grade fever with leukocytosis, currently under investigation. The patient remains on broad-spectrum antibiotics including a combination of Zosyn and Eraxis. Cultures are negative the patient is currently afebrile. White cell count is improving. Left pneumothorax, S/P Thora vent placement. The Thora vent was removed on 01/07/2025 and the follow-up chest x-ray shows no evidence of any pneumothorax Acute kidney injury, likely secondary to diarrhea intravascular depletion, responded to IV fluids and the creatinine is improved History of chronic pancreatitis. Hyperammonemia, improved and the repeat ammonia level is 51 chronic alcohol abuse and alcoholic liver disease History of splenic vein thrombosis. History of syncope. History of chronic diarrhea. Lactic acidosis. Hypocalcemia, treated Hypomagnesemia, treated Leukocytosis, improving, currently on a combination of Zosyn and Eraxis, essentially empiric antibiotic coverage. Chronic cholecystitis Plan: Clinically stable Patient is currently on 2 L by nasal cannula Hemodynamically stable on no pressors Amiodarone 200 mg p.o. daily metoprolol 12.5 mg p.o. twice a day Cardiac rhythm is sinus Monitor white cell count and fever Continue broad-spectrum antibiotics and the patient is currently combination of Zosyn and Eraxis monitor diarrhea and stool for C. difficile has been negative and the patient has chronic pancreatic insufficiency contributing to his diarrhea. Advance diet as tolerated. Monitor diarrhea. Lasix 40 mg IV every 24 hours Imodium for diarrhea Pancreatic enzyme supplements for chronic pancreatic insufficiency Will keep the LifeVest Will continue to monitor the progress and make further recommendations based on his condition.
[2025-01-11 20:10] LABS: Glucose,Whole Blood 127 mg/dL (70-110)
[2025-01-11] MEDS: FUROSEMIDE 10 MG/ML 2 ML VIAL IV ONE (21:40)
--- NOTE | 2025-01-11 22:26 | PN ---
PROGRESS NOTE DATE OF SERVICE: 01/11/2025 SUBJECTIVE: This is a 44-year-old gentleman who was admitted with acute cardiac arrest secondary to ventricular tachycardia, also complaining of severe pain. No chest pain. No palpitation. OBJECTIVE: VITAL SIGNS: Pulse is 79, blood pressure 123/81, respirations 18. CHEST: Clear to auscultation. CARDIOVASCULAR: S1, S2. ABDOMEN: Soft. LABORATORY DATA: WBC 22.7. ASSESSMENT: 1. Cardiac arrest secondary to ventricular tachycardia secondary to multiple electrolyte abnormalities. 2. Elevated WBC. 3. History of EtOH. 4. Candidal pneumonia from the sputum. 5. [id number] cardiac arrest. 6. Cardiomyopathy, ejection fraction 20% to 25%, nonischemic, possibly takotsubo. 7. Left pneumothorax, status post. 8. Multiple complex medical issues. RECOMMENDATIONS: Recommend to continue current management and continue symptomatic pain management. Continue the rest of medications. Guarded prognosis. White count is still elevated showing a diminishing trend. Continue to monitor. Guarded prognosis. Further recommendations to follow. MMODL / IJN: [id number] /
[2025-01-12 05:13] LABS: Basophils # (A) 0.12 10*3/uL (0.00-0.10); Basophils % (A) 0.6 %; Eosinophils # (A) 0.17 10*3/uL (0.04-0.35); Eosinophils % (A) 0.9 %; HCT 27.5 % (39.6-50.0); HGB 8.5 g/dL (13.0-17.0); Lymphocytes # (A) 1.95 10*3/uL (0.90-5.00); Lymphocytes % (A) 10.4 %; MCH 30.4 pg (27.0-32.0); MCHC 30.9 g/dL (32.0-37.0); MCV 98.2 fL (80.0-97.0); Monocytes % (A) 14.7 %; Neutrophils # (A) 13.09 10*3/uL (1.80-7.70); Neutrophils % (A) 70.2 %; Platelet Count 614 10*3/uL (140-440); RBC 2.80 10*6/uL (4.40-5.60); RDW 21.9 % (11.5-14.5); WBC 18.67 10*3/uL (4.50-10.00)
[2025-01-12 05:27] LABS: ALT 17 U/L (4-49); AST 34 U/L (17-59); African American GFR (CKD) >90 (>60 ml/min/1.73 sqM); Albumin 2.0 g/dL (3.5-5.0); Alkaline Phosphatase 242 U/L (38-126); Anion Gap 18 mmol/L; Blood Urea Nitrogen 21 mg/dL (9-20); Calcium 8.2 mg/dL (8.4-10.2); Carbon Dioxide 17 mmol/L (22-30); Chloride 107 mmol/L (98-107); Glucose 108 mg/dL (74-99); Magnesium 1.6 mg/dL (1.6-2.3); Non-African American GFR(CKD) >90 (>60 ml/min/1.73 sqM); Potassium 3.2 mmol/L (3.5-5.1); Sodium 142 mmol/L (137-145); Total Protein 4.6 g/dL (6.3-8.2)
[2025-01-12] MEDS ORDERED: Potassium Replacement Protocol 1 EACH MISC MISCELLANE PRN (05:33)
[2025-01-12 05:39] LABS: Monocytes # (A) 2.74 10*3/uL (0.20-1.00)
[2025-01-12 06:02] LABS: Glucose,Whole Blood 124 mg/dL (70-110)
[2025-01-12] MEDS: POTASSIUM CHLORIDE ER 20 MEQ TAB.ER PO SCH (06:35)
[2025-01-12] MEDS: MAGNESIUM SULFATE-D5W PMX 1 GM in DEXTROSE/WATER 1 100ML.BAG IVPB SCH (07:55)
[2025-01-12 11:24] LABS: Glucose,Whole Blood 118 mg/dL (70-110)
[2025-01-12 16:45] LABS: Glucose,Whole Blood 128 mg/dL (70-110)
--- NOTE | 2025-01-12 18:10 | P.PN ---
Subjective Progress Note Date: 01/12/25 On 01/10/2025, the patient is extubated the patient is currently on 3 L of oxygen by nasal cannula. He is weak and lethargic. Awake and arousable and he is able to communicate. Is complaining of diffuse bodyaches. He is on no pressors. Fluid balance is +1.7 L over the past 24 hours. Hemoglobin is currently at 6.9. The patient remains off Precedex. White cell count is improving. The patient is currently afebrile. Based on his ongoing episodes of fever and leukocytosis, antibiotic modification was done by infectious disease and the patient was started on a combination of Zosyn and Eraxis. Nevertheless, he does not have any positive blood culture. Chest x-ray findings are stable and the patient has no evidence of pneumonia. He continues to wear a LifeVest. Cardiac rhythm is sinus. Remains on Lasix 40 g IV every 24 hours. No other significant events overnight. The white cell count 24 with a heme of 7.4 and a platelet count of 469. The sodium is at 142, potassium is at 2.8, BUN 30 with a 0.9. Serum Bicarb Is 21 with a Gap of 14. The Patient Has No Vertical Neurological Defici t. Generalized Weakness. He Remains on Amiodarone and Metoprolol Post Cardiac Arrest Related to Ventricular Arrhythmia/Fibrillation. No Active Diarrhea at This Point. Remains on Midodrine. Overall Condition Is Stable and the Patient Was Successfully Extubated Yesterday. On today's evaluation of 01/11/2025, the patient is being seen on the medical floor. The patient was weaned off the mechanical ventilator and the patient was extubated and the patient was subsequently transferred to the medical floor. He is doing well. His cardiac rhythm is sinus. Tolerating his diet. Complaining of generalized body aches and pains. He is starting to eat and is able to tolerate diet and swallow. The white cell count at 22 with a hemoglobin 7.1 and platelet count of 491. BUN is 26 with a creatinine 0.8. He is afebrile. Noted his white cell count was gradually improving and the patient was covered with broad-spectrum antibiotics and the patient is currently on Zosyn and Eraxis. He has occasional diarrhea related to chronic pancreatic insufficiency. He remains weak and needs further rehabilitation. He is wearing a LifeVest. Rest of the medications remain unchanged. The patient is seen today January 12, 2025 in follow-up on the selective care unit. He is currently sitting up in bed. Awake and alert in no acute distress. Maintaining good O2 saturations in the high 90s on room air oxygen. He is afebrile. Hemodynamically stable. LifeVest in place. He is status post 2 units of packed red blood cells this admission. Current hemoglobin 8.5. Platelets 614. White count 18.6. Sodium 142. Potassium 3.2. Bicarb 17. BUN 21. Creatinine 0.78. Glucose 108. Sputum culture revealed no growth. Blood culture revealed no growth. He remains on amiodarone and Lopressor. Continued on Zosyn and Eraxis. Heparin for DVT prophylaxis. Remains on IV diuretics. NicoDerm patch in place. Objective - Vital Signs Vital signs: Vital Signs Temp 97.7 F 01/12/25 15:52 Pulse 107 H 01/12/25 15:52 Resp 16 01/12/25 15:52 BP 123/92 01/12/25 15:52 Pulse Ox 99 01/12/25 15:52 FiO2 21 01/11/25 08:40 Intake & Output 01/11/25 01/12/25 01/12/25 18:59 06:59 18:59 Intake Total 10 850 Output Total 1600 1100 Balance -1590 -250 Weight 61.5 kg 61.5 kg Intake: IV 10 Invasive Line 8 10 Oral 540 Blood Product 0 310 Rc As-1 Unit 0 310 [id number] Output: Urine 1600 1100 Other: Voiding Method Indwelling Catheter Indwelling Catheter Indwelling Catheter ABP, PAP, CO, CI - Last Documented Arterial Blood Pressure 153/76 - Exam GENERAL EXAM: Alert, active, pleasant 44-year-old male, on room air oxygen, comfortable in no apparent distress. HEAD: Normocephalic. EYES: Normal reaction of pupils, equal size. NOSE: Clear with pink turbinates. THROAT: No erythema or exudates. NECK: No masses, no JVD. CHEST: No chest wall deformity. LifeVest in place. LUNGS: Equal air entry with no crackles, wheeze, rhonchi or dullness. CVS: S1 and S2 normal with no audible murmur, regular rhythm. ABDOMEN: No hepatosplenomegaly, normal bowel sounds, no guarding or rigidity. SPINE: No scoliosis or deformity SKIN: No rashes CENTRAL NERVOUS SYSTEM: No focal deficits, tone is normal in all 4 extremities. EXTREMITIES: There is no peripheral edema. No clubbing, no cyanosis. Peripheral pulses are intact. - Labs CBC & Chem 7: 01/12/25 04:30 01/12/25 04:30 Labs: Abnormal Lab Results - Last 24 Hours (Table) 01/11/25 01/11/25 01/12/25 Range/Units 16:54 20:06 04:30 WBC (4.50-10.00) 10*3/uL RBC (4.40-5.60) 10*6/uL Hgb (13.0-17.0) g/dL Hct (39.6-50.0) % MCV (80.0-97.0) fL MCHC (32.0-37.0) g/dL Plt Count (140-440) 10*3/uL Immature Gran # (0.00-0.04) 10*3/uL Neutrophils # (1.80-7.70) 10*3/uL Monocytes # (0.20-1.00) 10*3/uL Basophils # (0.00-0.10) 10*3/uL Potassium 3.2 L (3.5-5.1) mmol/L Carbon Dioxide 17 L (22-30) mmol/L BUN 21 H (9-20) mg/dL Glucose 108 H (74-99) mg/dL POC Glucose (mg/dL) 127 H (70-110) mg/dL Calcium 8.2 L (8.4-10.2) mg/dL Total Bilirubin 1.5 H (0.2-1.3) mg/dL Alkaline Phosphatase 242 H (38-126) U/L Total Protein 4.6 L (6.3-8.2) g/dL Albumin 2.0 L (3.5-5.0) g/dL Crossmatch See Detail 01/12/25 01/12/25 01/12/25 Range/Units 04:30 05:59 11:23 WBC 18.67 H (4.50-10.00) 10*3/uL RBC 2.80 L (4.40-5.60) 10*6/uL Hgb 8.5 L (13.0-17.0) g/dL Hct 27.5 L (39.6-50.0) % MCV 98.2 H (80.0-97.0) fL MCHC 30.9 L (32.0-37.0) g/dL Plt Count 614 H (140-440) 10*3/uL Immature Gran # 0.60 H (0.00-0.04) 10*3/uL Neutrophils # 13.09 H (1.80-7.70) 10*3/uL Monocytes # 2.74 H (0.20-1.00) 10*3/uL Basophils # 0.12 H (0.00-0.10) 10*3/uL Potassium (3.5-5.1) mmol/L Carbon Dioxide (22-30) mmol/L BUN (9-20) mg/dL Glucose (74-99) mg/dL POC Glucose (mg/dL) 124 H 118 H (70-110) mg/dL Calcium (8.4-10.2) mg/dL Total Bilirubin (0.2-1.3) mg/dL Alkaline Phosphatase (38-126) U/L Total Protein (6.3-8.2) g/dL Albumin (3.5-5.0) g/dL Crossmatch 01/12/25 Range/Units 16:43 WBC (4.50-10.00) 10*3/uL RBC (4.40-5.60) 10*6/uL Hgb (13.0-17.0) g/dL Hct (39.6-50.0) % MCV (80.0-97.0) fL MCHC (32.0-37.0) g/dL Plt Count (140-440) 10*3/uL Immature Gran # (0.00-0.04) 10*3/uL Neutrophils # (1.80-7.70) 10*3/uL Monocytes # (0.20-1.00) 10*3/uL Basophils # (0.00-0.10) 10*3/uL Potassium (3.5-5.1) mmol/L Carbon Dioxide (22-30) mmol/L BUN (9-20) mg/dL Glucose (74-99) mg/dL POC Glucose (mg/dL) 128 H (70-110) mg/dL Calcium (8.4-10.2) mg/dL Total Bilirubin (0.2-1.3) mg/dL Alkaline Phosphatase (38-126) U/L Total Protein (6.3-8.2) g/dL Albumin (3.5-5.0) g/dL Crossmatch Microbiology - Last 24 Hours (Table) 01/07/25 10:24 Blood Culture - Final Blood 01/04/25 12:04 Stool Culture - Final Stool Assessment and Plan Assessment: Acute hypoxic respiratory failure secondary to pulmonary edema with secondary acute hypoxic respiratory failure and subsequent V. tach induced cardiac arrest, improved and the patient's oxygenation is also improved and the patient was extubated on 01/09/2025, currently on room air oxygen [id number] cardiac arrest likely from V. tach. Repeat cardiac arrest likely from V. tach on 01/02/2025. The patient is hypotensive, probably cardiogenic in nature the patient is currently off pressors.. No significant c ardiac arrhythmias and the patient is currently on Oral amiodarone 200 mg p.o. daily and the patient was also started on metoprolol 12.5 mg p.o. twice a day. The current cardiac rhythm remains sinus and the patient has not developed any further cardiac arrhythmias. LifeVest remains in place Hypotension, multifactorial. The patient has severe cardiomyopathy in addition to intravascular volume depletion probably recovered with fluids and the patient is currently off pressors. Recovered Diarrhea, stool for C. difficile has been negative and this is probably due to the chronic pancreatic insufficiency, currently on Imodium. Diarrhea has subsided. Cardiomyopathy, EF 20 to 25%, nonischemic, possible Takotsubo, repeat echo 30- 35% Low-grade fever with leukocytosis, currently under investigation. The patient remains on broad-spectrum antibiotics including a combination of Zosyn and Erax is. Cultures are negative the patient is currently afebrile. White cell count is improving. Left pneumothorax, S/P Thora vent placement. The Thora vent was removed on 01/07/2025 and the follow-up chest x-ray shows no evidence of any pneumothorax Acute kidney injury, likely secondary to diarrhea intravascular depletion, responded to IV fluids and the creatinine is improved History of chronic pancreatitis. Hyperammonemia, improved and the repeat ammonia level is 51 chronic alcohol abuse and alcoholic liver disease History of splenic vein thrombosis. History of syncope. History of chronic diarrhea. Lactic acidosis. Hypocalcemia, treated Hypomagnesemia, treated Leukocytosis, improving, currently on a combination of Zosyn and Eraxis, essentially empiric antibiotic coverage. Chronic cholecystitis Plan: The patient was seen and evaluated LifeVest remains in place Labs and medications reviewed Currently stable and on room air oxygen Discontinue IV Lasix Initiate oral Lasix Continue amiodarone Continue metoprolol Heparin for DVT prophylaxis Continued on Zosyn and Eraxis Plan is for possibly [facility] at discharge I have personally seen and examined the patient, performed the documentation and the assessment and plan as written. Number of minutes spent on the visit: 10 Dictation was produced using [employer] dictation software. Please excuse any grammatical, word or spelling errors.
[2025-01-12 20:08] LABS: Glucose,Whole Blood 142 mg/dL (70-110)
[2025-01-12 23:55] LABS: Glucose,Whole Blood 116 mg/dL (70-110)
[2025-01-13 06:07] LABS: Glucose,Whole Blood 137 mg/dL (70-110)
[2025-01-13 07:51] LABS: Basophils # (A) 0.11 10*3/uL (0.00-0.10); Basophils % (A) 0.7 %; Eosinophils # (A) 0.23 10*3/uL (0.04-0.35); Eosinophils % (A) 1.5 %; HCT 29.2 % (39.6-50.0); HGB 9.0 g/dL (13.0-17.0); Lymphocytes # (A) 2.02 10*3/uL (0.90-5.00); Lymphocytes % (A) 13.2 %; MCH 30.6 pg (27.0-32.0); MCHC 30.8 g/dL (32.0-37.0); MCV 99.3 fL (80.0-97.0); Monocytes # (A) 1.73 10*3/uL (0.20-1.00); Monocytes % (A) 11.3 %; Neutrophils # (A) 10.85 10*3/uL (1.80-7.70); Neutrophils % (A) 71.2 %; Platelet Count 828 10*3/uL (140-440); RBC 2.94 10*6/uL (4.40-5.60); RDW 21.9 % (11.5-14.5); WBC 15.26 10*3/uL (4.50-10.00)
[2025-01-13 08:29] LABS: ALT 20 U/L (4-49); AST 37 U/L (17-59); African American GFR (CKD) >90 (>60 ml/min/1.73 sqM); Albumin 2.3 g/dL (3.5-5.0); Alkaline Phosphatase 304 U/L (38-126); Anion Gap 18 mmol/L; Blood Urea Nitrogen 16 mg/dL (9-20); Calcium 8.3 mg/dL (8.4-10.2); Carbon Dioxide 18 mmol/L (22-30); Chloride 108 mmol/L (98-107); Glucose 105 mg/dL (74-99); Magnesium 1.7 mg/dL (1.6-2.3); Non-African American GFR(CKD) >90 (>60 ml/min/1.73 sqM); Potassium 2.9 mmol/L (3.5-5.1); Sodium 144 mmol/L (137-145); Total Protein 5.1 g/dL (6.3-8.2)
[2025-01-13] MEDS ORDERED: Potassium Replacement Protocol 1 EACH MISC MISCELLANE PRN ×2 (08:39→18:07)
[2025-01-13] MEDS: FUROSEMIDE 40 MG TAB PO SCH (08:40)
[2025-01-13] MEDS: POTASSIUM CHLORIDE ER 20 MEQ TAB.ER PO SCH ×2 (08:56→18:23)
--- NOTE | 2025-01-13 09:40 | P.PN ---
Subjective Progress Note Date: 01/12/25 This is a pleasant 44-year-old male who was recently admitted after brief cardiac arrest with multiple electrolyte abnormalities being closely monitored. Patient being followed by cardiology and is status post cardiac catheterization recommending maximizing medical management and normal coronary arteries noted. Patient reports to having increasing pain and also generalized weakness although reports will be going home on discharge. Patient did have an elevated white count that had been trending down although is slightly up today with infectious disease following and will repeat CT abdomen for further evaluation. Continue current antibiotics at this time. Case management is following as plan is for LifeVest on discharge. Recommend incentive spirometer as patient is requiring oxygen and may require oxygen on discharge. Will reattempt home oxygen evaluation. Encourage increase activity as tolerated with sitting up out of the bed more frequently. Labs reviewed and white count is 25.52, hemoglobin is 8.8, platelets 446, sodium 137 with a potassium of 3.5, BUN is 5 and creatinine 0.33. Calcium is slightly low at 6.2, total bili is 1.4. 12/31/2024 Patient is seen in follow-up with multiple consultations following. White count was elevated although slightly improving with infectious disease following we will continue current regimen at this time. Patient continues to report short ness of breath and generalized pain and continues to require oxygen. Will need home O2 assessment. Patient underwent CT abdomen and will consult general surgery for evaluation. Encouraged increased activity as tolerated with sitting up more frequently in the chair. 01/01/2025 Patient seen and evaluated this morning currently scheduled to undergo HIDA scan per general surgery and patient is currently requesting increase in pain medications as she reports diffuse pain. Pain medications through the IV are currently on hold as patient will be undergoing HIDA scan. Patient's white count is elevated with infectious disease following maintained on Zosyn and will continue. Patient is afebrile with no reports of chest pain or palpitations. Patient is reporting some congestion and occasional shortness of breath. Will order chest x-ray as well. Continue DuoNeb treatments and supplemental oxygen as needed. Patient currently maintained on 5 L. Would recommend PT/OT therapy evaluation as patient has had prolonged cough elevation and appears frail and extremely weak. 01/02/2025 Patient is seen in follow-up was a CODE BLUE on 3 S. and was transferred to ICU intubated for respiratory arrest with cardiac arrest and ROSC received. Patient remains a full code per sister and will continue on mechanical ventilation with an FiO2 of 100% and PEEP of 10 currently. Blood pressures are soft and patient is maintained on pressor support and hemoglobin was noted to be 6.9 this morning and will give 1 unit of PRBC. White count remains elevated at 24.18 and maintained on antibiotics with infectious disease following. Sodium is 141 with a potassium of 3.0, creatinine 0.48, blood sugars elevated, lactic acid 5.1 with a calcium that is low at 5.6, magnesium 1.2. Prognosis remains extremely guarded and CODE STATUS needs to be addressed again. 01/03/2025 Patient is seen in follow-up in the ICU maintained on mechanical ventilation and FiO2 was adjusted per pulmonary supervisor gate services but FiO2 is currently 60%. Patient maintained on pressor support including Levophed and vasopressin and also receiving Lasix. Blood sugars have been elevated and will adjust insulins accordingly including increasing long-acting. Patient is continued on tube feeds and will continue at this time. Per nursing staff patient did require Chris hugger for some time for hypothermia. Hemoglobin is stable at 8.3 status post 1 unit of PRBC, white count remains elevated at 19.68, sodium is 134 and potassium was again 2.9 with replacement of 3.5 and continued on protocol creatinine is stable at 0.63. Preliminary sputum culture from 12/31/2024 showing yeast species. 01/04/2025 Patient is seen in follow-up continues to be in the ICU on mechanical ventilation with multiple consultations following. FiO2 is 60% and patient is continued on low-dose pressor and support, Levophed has been discontinued and p atient has been weaned off fentanyl and patient is not on Versed at this time. Patient continues on sedation with propofol and per nursing staff will undergo sedation trials to assess mentation. Patient is continued on antibiotics and will continue with infectious disease following. Blood sugars have been on the lower side and tube feedings have been started and tolerating thus far working on goal and will discontinue long-acting insulin and monitor closely with just Accu-Cheks and sliding scale for now. Prognosis remains extremely guarded and patient remains full code per family at this time. White count remains elevated at 23.15, hemoglobin is stable at 9.0 with no active bleeding noted, platelets are 319, sodium is 134 with a potassium of 3.8, BUN is 5 and creatinine is 0.79. Magnesium is 1.6 and receiving replacement. 01/05/2025 Patient is seen in follow-up today maintained on mechanical ventilation with no plans of weaning today continues on low-dose Levophed and other pressor support being weaned. Per nursing staff patient's blood pressures were extremely low overnight requiring reinitiation of the Levophed which is currently being weaned as tolerated. Patient is maintained on mechanical ventilation with an FiO2 of 40% PEEP is at 10. Patient remains full code and will attempt to contact family to discuss treatment plan and overall prognosis. Patient continues with Pleurx catheter in the left chest wall with no leak noted recommending to continue for another 24 hours as there was a noted tiny pneumothorax on the left on imaging. Per nursing staff patient is experiencing a mild rectal prolapse and would recommend keeping the area moist and lubricated as much as possible. Patient continues to have loose stools and is maintained on antibiotics with infectious disease following. 01/06/2025 Patient is seen in follow-up continues in the ICU on mechanical ventilation with an FiO2 of 40% PEEP is being adjusted to 6 per pulmonary supervisor gate services cleared no plans of weaning at this time recommending initiating small sedation trials to assess mentation. Patient has been weaned off pressor support with medications being adjusted and cardiology following. Patient continues with Thora vent on the left and per supervisor gate services will be capped with possible removal in the next 24 hours as chest x-ray reveals a tiny pneumothorax that is stable. Patient continues on IV Lasix and will continue as patient is extremely edematous in upper and lower extremities. Patient continues on IV antibiotics in the form of Zosyn and Flagyl and also Diflucan and will continue with infectious disease following. Repeat cultures are pending at this time and patient remains afeb rile. 01/07/2025 Patient is seen in follow-up continues on mechanical ventilation with an FiO2 of 40% and PEEP of 6. Per nursing staff patient did become more hypotensive and tachycardic requiring Levophed to be resumed and currently on hold as blood pressures have improved and will continue to wean as tolerated. Patient continues with significant volume overload and is maintained on IV Lasix daily. Patient continues to have an elevated white count with worsening and also having increased fevers with infectious disease following and will add daptomycin and repeat cultures. Patient remains sedated at this time with no plans of weaning. Pulmonary supervisor gate services following closely. Thora vent on the left is being removed and will follow-up with repeat chest x-rays. 01/08/2025 Patient seen in follow-up continues to be on mechanical ventilation with no vent changes today maintained on FiO2 of 40% and PEEP of 6. Per nursing staff patient underwent sedation holiday this morning although breathing rapidly with respirations of 30 to 40/min and was placed back on propofol. Discussion of we aning propofol and attempting Precedex with sedation holidays. Patient is off pressor support at this time and will monitor closely. White count is elevated at 33 and having low-grade temps maintained on daptomycin and Zosyn with infectious disease following closely. Per nursing staff patient is having multiple episodes of loose stools most likely secondary to tube feeds. C. difficile has been negative and will add as needed Imodium. WBC is 33.42, hemoglobin 8.6, platelets are 280, potassium was 3.3 and replaced and follow-up is 4.4, sodium is 141, BUN is 27 with a creatinine of 1.11. Blood sugars being monitored closely and will adjust accordingly 01/09/2025 Patient is seen in follow-up today currently awake and off sedation still requiring some Precedex as patient is extremely anxious and attempting to pull at tubing. Plan is for possible extubation today and has been tolerating weaning trials. Patient is afebrile continues with occasional low-grade fever maintained on antibiotics infectious disease following closely. White count is above 30 and patient will be started on Eraxis per ID recommendations. Recommend repeat labs. Patient is off pressor support currently and cardiology following closely. Patient continues with LifeVest at this time. Patient continues with loose stools and C. difficile testing has been negative. Continue Imodium as needed. 01/12/2025 Patient is seen in follow-up today currently on stepdown out of the ICU maintained on 2 L via nasal cannula and weaning FiO2 as tolerated. Patient with significant weakness with case management/social work following working on discharge planning to [facility]. Patient continues to report significant amount of pain and medications are being adjusted. Recommend PT/OT therapy daily. Patient is afebrile with no reports of chest pain or palpitations. Patient does continue with LifeVest at this time with cardiology following. Review of systems: Constitutional: No reports of fatigue, fever, or chills Cardiovascular: No reports of chest pain or palpitations Respiratory: No reports of shortness of breath or cough GI: No reports of nausea, vomiting, or diarrhea : No reports of dysuria or retention Neurovascular: reports of weakness and difficulty ambulating, reports significant generalized pain PHYSICAL EXAMINATION: GENERAL: The patient is alert and oriented x3, well developed, elderly appear ing, thin built, cachectic, chronically ill-appearing, pale HEENT: Pupils are round and equally reacting to light. EOMI. no scleral icterus. No conjunctival pallor. Normocephalic, atraumatic. No pharyngeal erythema. No thyromegaly. CARDIOVASCULAR: S1 and S2 muffled PULMONARY: diminished breath sounds bilaterally with no wheezing, scattered coarse rhonchi noted with upper bronchial congestion. Crackles noted at the bases ABDOMEN: soft. Nontender on exam. Thin non-distended, normoactive bowel sounds. No palpable organomegaly. MUSCULOSKELETAL: No joint swelling or deformity. EXTREMITIES: No cyanosis, clubbing, or pedal edema. Bilateral upper extremities edematous NEUROLOGICAL: Gross neurological examination did not reveal any focal deficits. Unable to completely assess as patient is maintained on mechanical ventilation not me sedation is off and patient is following commands working on weaning trials SKIN: No rashes. Extremely pale Assessment: Cardiac arrest, possibly secondary to ventricular tachycardia secondary to multiple electrolyte abnormalities Respiratory arrest with cardiac arrest requiring mechanical ventilation 01/01/2025 likely secondary to V. tach Severe hypokalemia, hypomagnesemia, hypocalcemia, improving after replacement, continue to monitor closely History of EtOH Candidal pneumonia from the sputum Nonischemic cardiomyopathy possible Takotsubo, EF was 20 to 25%, repeat is 30- 35, continued on LifeVest Possible acute colitis as noted on imaging Continued ongoing diarrhea, C. difficile was negative likely secondary to tube feeds, being evaluated by speech for diet Diabetes mellitus, type II, uncontrolled with hyperglycemia History of pancreatitis Tachycardia Anemia, chronic, hemoglobin stable above 8 today Concerns of possible right lower lobe pneumonia on admission, possibly aspiration History of splenic vein thrombosis, was on Eliquis Hepatic encephalopathy Moderate protein calorie malnutrition with a BMI of 17.7 GI prophylaxis DVT prophylaxis Full code Plan: Recommend to continue with current medications and management with multiple con sultations following. Patient is out of the ICU and weaning FiO2 as tolerated currently on 2 L. Co ntinue incentive spirometer use at least 10 times every hour while awake Patient had respiratory arrest with cardiac arrest on 01/01/2025 and was placed on mechanical ventilation. Pressor supports discontinued and being weaned off mech vent today 01/09 infectious disease following as white count remains elevated although is trending down and maintained on Eraxis. Will need to discuss further with infectious disease regarding discharge planning if patient will require IV antibiotics on discharge Cardiology following and patient is status post catheterization recommending maximizing medical management and case management following and has received LifeVest. Patient does currently have LifeVest on. Patient has transition to oral amiodarone off amiodarone drip Patient continues to have multiple loose stools nursing staff and C. difficile testing has been negative, likely secondary to tube feeds and continued antibiotics, continue Imodium as needed. Awaiting speech evaluation for diet re sumption Continue monitoring Accu-Cheks AC and at bedtime and adjust accordingly. Blood sugars have been on the lower side and will hold long-acting and continue with just sliding scale for now, will adjust once diet is resumed Follow-up on repeat labs and replace electrolytes per protocol. Replace potassium and magnesium per protocol Will discuss with social work regarding discharge planning to [facility], patient will also require insurance authorization Due to multiple complex medical issues, overall prognosis is extremely guarded The impression and plan of care has been dictated by Ana Duggan, Nurse Practitioner as directed. Dr. Germain MD I have performed a history and examination and MDM of this patient, discussed the same with the dictator, and agree with the dictator's assessment and plan as written ,documented as a scribe. Based on total visit time, I have performed more than 50% of the visit. Objective - Vital Signs Vital signs: Vital Signs Temp 97.6 F 01/13/25 08:27 Pulse 91 01/13/25 08:27 Resp 16 01/13/25 08:27 BP 126/89 01/13/25 08:27 Pulse Ox 98 01/13/25 08:27 FiO2 21 01/11/25 08:40 Intake & Output 01/12/25 01/13/25 01/13/25 18:59 06:59 18:59 Weight 61.5 kg 61.5 kg Other: Voiding Method Indwelling Catheter Indwelling Catheter ABP, PAP, CO, CI - Last Documented Arterial Blood Pressure 153/76 - Labs CBC & Chem 7: 01/13/25 07:17 01/13/25 07:17 Labs: Abnormal Lab Results - Last 24 Hours (Table) 01/12/25 01/12/25 01/12/25 Range/Units 11:23 16:43 20:07 WBC (4.50-10.00) 10*3/uL RBC (4.40-5.60) 10*6/uL Hgb (13.0-17.0) g/dL Hct (39.6-50.0) % MCV (80.0-97.0) fL MCHC (32.0-37.0) g/dL Plt Count (140-440) 10*3/uL Immature Gran # (0.00-0.04) 10*3/uL Neutrophils # (1.80-7.70) 10*3/uL Monocytes # (0.20-1.00) 10*3/uL Basophils # (0.00-0.10) 10*3/uL Potassium (3.5-5.1) mmol/L Chloride (98-107) mmol/L Carbon Dioxide (22-30) mmol/L Glucose (74-99) mg/dL POC Glucose (mg/dL) 118 H 128 H 142 H (70-110) mg/dL Calcium (8.4-10.2) mg/dL Alkaline Phosphatase (38-126) U/L Total Protein (6.3-8.2) g/dL Albumin (3.5-5.0) g/dL 01/12/25 01/13/25 01/13/25 Range/Units 23:54 06:06 07:17 WBC 15.26 H (4.50-10.00) 10*3/uL RBC 2.94 L (4.40-5.60) 10*6/uL Hgb 9.0 L (13.0-17.0) g/dL Hct 29.2 L (39.6-50.0) % MCV 99.3 H (80.0-97.0) fL MCHC 30.8 L (32.0-37.0) g/dL Plt Count 828 H (140-440) 10*3/uL Immature Gran # 0.32 H (0.00-0.04) 10*3/uL Neutrophils # 10.85 H (1.80-7.70) 10*3/uL Monocytes # 1.73 H (0.20-1.00) 10*3/uL Basophils # 0.11 H (0.00-0.10) 10*3/uL Potassium (3.5-5.1) mmol/L Chloride (98-107) mmol/L Carbon Dioxide (22-30) mmol/L Glucose (74-99) mg/dL POC Glucose (mg/dL) 116 H 137 H (70-110) mg/dL Calcium (8.4-10.2) mg/dL Alkaline Phosphatase (38-126) U/L Total Protein (6.3-8.2) g/dL Albumin (3.5-5.0) g/dL 01/13/25 Range/Units 07:17 WBC (4.50-10.00) 10*3/uL RBC (4.40-5.60) 10*6/uL Hgb (13.0-17.0) g/dL Hct (39.6-50.0) % MCV (80.0-97.0) fL MCHC (32.0-37.0) g/dL Plt Count (140-440) 10*3/uL Immature Gran # (0.00-0.04) 10*3/uL Neutrophils # (1.80-7.70) 10*3/uL Monocytes # (0.20-1.00) 10*3/uL Basophils # (0.00-0.10) 10*3/uL Potassium 2.9 L (3.5-5.1) mmol/L Chloride 108 H (98-107) mmol/L Carbon Dioxide 18 L (22-30) mmol/L Glucose 105 H (74-99) mg/dL POC Glucose (mg/dL) (70-110) mg/dL Calcium 8.3 L (8.4-10.2) mg/dL Alkaline Phosphatase 304 H (38-126) U/L Total Protein 5.1 L (6.3-8.2) g/dL Albumin 2.3 L (3.5-5.0) g/dL Microbiology - Last 24 Hours (Table) 01/07/25 10:24 Blood Culture - Final Blood 01/04/25 12:04 Stool Culture - Final Stool
--- NOTE | 2025-01-13 12:39 | P.PN ---
Subjective Progress Note Date: 01/12/25 Principal diagnosis: Reason for follow-up is pneumonia/colitis Patient is a 44-year-old male with a past medical history significant for CVA TIA reflux history of recurrent/chronic pancreatitis from alcoholism and hypertension patient was brought into the hospital for lethargy seizure activity did have a cardiac arrest/V. tach requiring shock and subsequent admitted to the hospital.Patient did have a cardiac arrest last night patient is status post resuscitation intubation and transfer the ICU also have a right-sided pneumothorax. On today's visit that is 01/12/2025, patient has been afebrile, patient is breathing comfortably and is currently on room air, patient denies having any chest pain and cough, patient denies nausea vomiting or diarrhea still complain ing of some abdominal pain and generalized bodyaches wants more pain medication. Patient white count is down to 18.67 creatinine 0.78 Objective - Vital Signs Vital signs: Vital Signs Temp 97.6 F 01/12/25 08:27 Pulse 95 01/12/25 08:27 Resp 16 01/12/25 08:27 BP 122/84 01/12/25 08:27 Pulse Ox 97 01/12/25 08:27 FiO2 21 01/11/25 08:40 - Exam GENERAL DESCRIPTION: Middle-age male lying in bed in no distress RESPIRATORY SYSTEM: Unlabored breathing , decreased breath sounds at bases HEART: S1 S2 regular rate and rhythm , ABDOMEN: Soft , no tenderness EXTREMITIES: No edema feet - Labs CBC & Chem 7: 01/19/25 07:04 01/19/25 07:04 Labs: Abnormal Lab Results - Last 24 Hours (Table) 01/12/25 01/12/25 01/12/25 Range/Units 16:43 20:07 23:54 WBC (4.50-10.00) 10*3/uL RBC (4.40-5.60) 10*6/uL Hgb (13.0-17.0) g/dL Hct (39.6-50.0) % MCV (80.0-97.0) fL MCHC (32.0-37.0) g/dL Plt Count (140-440) 10*3/uL Immature Gran # (0.00-0.04) 10*3/uL Neutrophils # (1.80-7.70) 10*3/uL Monocytes # (0.20-1.00) 10*3/uL Basophils # (0.00-0.10) 10*3/uL Potassium (3.5-5.1) mmol/L Chloride (98-107) mmol/L Carbon Dioxide (22-30) mmol/L Glucose (74-99) mg/dL POC Glucose (mg/dL) 128 H 142 H 116 H (70-110) mg/dL Calcium (8.4-10.2) mg/dL Alkaline Phosphatase (38-126) U/L Total Protein (6.3-8.2) g/dL Albumin (3.5-5.0) g/dL 01/13/25 01/13/25 01/13/25 Range/Units 06:06 07:17 07:17 WBC 15.26 H (4.50-10.00) 10*3/uL RBC 2.94 L (4.40-5.60) 10*6/uL Hgb 9.0 L (13.0-17.0) g/dL Hct 29.2 L (39.6-50.0) % MCV 99.3 H (80.0-97.0) fL MCHC 30.8 L (32.0-37.0) g/dL Plt Count 828 H (140-440) 10*3/uL Immature Gran # 0.32 H (0.00-0.04) 10*3/uL Neutrophils # 10.85 H (1.80-7.70) 10*3/uL Monocytes # 1.73 H (0.20-1.00) 10*3/uL Basophils # 0.11 H (0.00-0.10) 10*3/uL Potassium 2.9 L (3.5-5.1) mmol/L Chloride 108 H (98-107) mmol/L Carbon Dioxide 18 L (22-30) mmol/L Glucose 105 H (74-99) mg/dL POC Glucose (mg/dL) 137 H (70-110) mg/dL Calcium 8.3 L (8.4-10.2) mg/dL Alkaline Phosphatase 304 H (38-126) U/L Total Protein 5.1 L (6.3-8.2) g/dL Albumin 2.3 L (3.5-5.0) g/dL Microbiology - Last 24 Hours (Table) 01/07/25 10:24 Blood Culture - Final Blood 01/04/25 12:04 Stool Culture - Final Stool Assessment and Plan (1) Sepsis Status: Acute Code(s): A41.9 - SEPSIS, UNSPECIFIED ORGANISM SNOMED Code(s): 41954380 (2) Aspiration pneumonitis Status: Acute Code(s): J69.0 - PNEUMONITIS DUE TO INHALATION OF FOOD AND VOMIT SNOMED Code(s): 703495935 (3) Colitis Status: Acute Code(s): K52.9 - NONINFECTIVE GASTROENTERITIS AND COLITIS, UNSPECIFIED SNOMED Code(s): 45308205 (4) Cholecystitis Status: Acute Code(s): K81.9 - CHOLECYSTITIS, UNSPECIFIED SNOMED Code(s): 79673796 Plan: 1patient presented to hospital with sepsis in this patient who did have t achycardia hypotension elevated white count meeting criteria for SIRS source likely aspiration pneumonitis as the patient did have intractable nausea vomiting before the patient has been brought to the hospital patient also have abnormality on the abdominal pelvis CT concerning for colitis question of infectious etiology need to be ruled out patient did not recall if he has been on antibiotic in the recent past 2-sputum cultures collected on 12/31/2024 reported as yeast, Angelica glabrata 3-patient CT as well as ultrasound has been suspicious for cholecystitis HIDA scan has been suspicious for chronic cholecystitis General Surgery following the patient 4patient did have a cardiac arrest, patient was resuscitated and intubated in the ICU, patient did have a negative MRSA nasal screen repeat cultures so far negative 5patient did have improvement in his fever pattern and white count started trending down, hence the patient continued on Zosyn and Eraxis Dictation was produced using [employer] dictation software. please excuse any grammatical, word or spelling errors. Time with Patient: Less than 30
--- NOTE | 2025-01-13 12:43 | P.PN ---
Subjective Progress Note Date: 01/13/25 Principal diagnosis: Reason for follow-up is pneumonia/colitis Patient is a 44-year-old male with a past medical history significant for CVA TIA reflux history of recurrent/chronic pancreatitis from alcoholism and hypertension patient was brought into the hospital for lethargy seizure activity did have a cardiac arrest/V. tach requiring shock and subsequent admitted to the hospital.Patient did have a cardiac arrest last night patient is status post resuscitation intubation and transfer the ICU also have a right-sided pneumothorax. On today's visit that is 01/13/2025, Patient is afebrile this morning patient denies having any chest pain shortness of breath or cough, the patient is currently on room air, patient denies any abdominal pain no diarrhea no nausea n o vomiting. The patient white count is down to 15.26 creatinine 0.74 Objective - Vital Signs Vital signs: Vital Signs Temp 97.6 F 01/13/25 08:27 Pulse 95 01/13/25 10:58 Resp 16 01/13/25 10:58 BP 122/84 01/13/25 10:58 Pulse Ox 97 01/13/25 10:58 FiO2 21 01/11/25 08:40 Intake & Output 01/12/25 01/13/25 01/13/25 18:59 06:59 18:59 Intake Total 0 Output Total 850 Balance -850 Weight 61.5 kg 61.5 kg Intake: Oral 0 Output: Urine 850 Other: Voiding Method Indwelling Catheter Indwelling Catheter Indwelling Catheter ABP, PAP, CO, CI - Last Documented Arterial Blood Pressure 153/76 - Exam GENERAL DESCRIPTION: Middle-age male lying in bed in no distress RESPIRATORY SYSTEM: Unlabored breathing , decreased breath sounds at bases HEART: S1 S2 regular rate and rhythm , ABDOMEN: Soft , no tenderness EXTREMITIES: No edema feet - Labs CBC & Chem 7: 01/13/25 07:17 01/13/25 07:17 Labs: Abnormal Lab Results - Last 24 Hours (Table) 01/12/25 01/12/25 01/12/25 Range/Units 16:43 20:07 23:54 WBC (4.50-10.00) 10*3/uL RBC (4.40-5.60) 10*6/uL Hgb (13.0-17.0) g/dL Hct (39.6-50.0) % MCV (80.0-97.0) fL MCHC (32.0-37.0) g/dL Plt Count (140-440) 10*3/uL Immature Gran # (0.00-0.04) 10*3/uL Neutrophils # (1.80-7.70) 10*3/uL Monocytes # (0.20-1.00) 10*3/uL Basophils # (0.00-0.10) 10*3/uL Potassium (3.5-5.1) mmol/L Chloride (98-107) mmol/L Carbon Dioxide (22-30) mmol/L Glucose (74-99) mg/dL POC Glucose (mg/dL) 128 H 142 H 116 H (70-110) mg/dL Calcium (8.4-10.2) mg/dL Alkaline Phosphatase (38-126) U/L Total Protein (6.3-8.2) g/dL Albumin (3.5-5.0) g/dL 01/13/25 01/13/25 01/13/25 Range/Units 06:06 07:17 07:17 WBC 15.26 H (4.50-10.00) 10*3/uL RBC 2.94 L (4.40-5.60) 10*6/uL Hgb 9.0 L (13.0-17.0) g/dL Hct 29.2 L (39.6-50.0) % MCV 99.3 H (80.0-97.0) fL MCHC 30.8 L (32.0-37.0) g/dL Plt Count 828 H (140-440) 10*3/uL Immature Gran # 0.32 H (0.00-0.04) 10*3/uL Neutrophils # 10.85 H (1.80-7.70) 10*3/uL Monocytes # 1.73 H (0.20-1.00) 10*3/uL Basophils # 0.11 H (0.00-0.10) 10*3/uL Potassium 2.9 L (3.5-5.1) mmol/L Chloride 108 H (98-107) mmol/L Carbon Dioxide 18 L (22-30) mmol/L Glucose 105 H (74-99) mg/dL POC Glucose (mg/dL) 137 H (70-110) mg/dL Calcium 8.3 L (8.4-10.2) mg/dL Alkaline Phosphatase 304 H (38-126) U/L Total Protein 5.1 L (6.3-8.2) g/dL Albumin 2.3 L (3.5-5.0) g/dL Microbiology - Last 24 Hours (Table) 01/07/25 10:24 Blood Culture - Final Blood 01/04/25 12:04 Stool Culture - Final Stool Assessment and Plan (1) Aspiration pneumonitis Current Visit: Yes Status: Acute Code(s): J69.0 - PNEUMONITIS DUE TO INH ALATION OF FOOD AND VOMIT SNOMED Code(s): 423664881 (2) Colitis Current Visit: Yes Status: Acute Code(s): K52.9 - NONINFECTIVE GASTROENTERITIS AND COLITIS, UNSPECIFIED SNOMED Code(s): 09628436 (3) Cholecystitis Current Visit: Yes Status: Acute Code(s): K81.9 - CHOLECYSTITIS, UNSPECIFIED SNOMED Code(s): 63957400 (4) Oropharyngeal candidiasis Current Visit: Yes Status: Acute Code(s): B37.0 - CANDIDAL STOMATITIS SNOMED Code(s): 87035546 Plan: 1patient presented to hospital with sepsis in this patient who did have tachycardia hypotension elevated white count meeting criteria for SIRS source likely aspiration pneumonitis as the patient did have intractable nausea vo miting before the patient has been brought to the hospital patient also have abnormality on the abdominal pelvis CT concerning for colitis question of infectious etiology need to be ruled out patient did not recall if he has been on antibiotic in the recent past 2-sputum cultures collected on 12/31/2024 reported as yeast, Angelica glabrata 3-patient CT as well as ultrasound has been suspicious for cholecystitis HIDA scan has been suspicious for chronic cholecystitis General Surgery following the patient 4patient did have a cardiac arrest, patient was resuscitated and intubated in the ICU, patient did have a negative MRSA nasal screen repeat cultures so far negative 5patient did have resolution of his fever and white count down to 15,000 6I will go ahead and discontinue Zosyn short course of oral Augmentin he is currently on Eraxis day #5 unfortunately not able to use voriconazole because of interaction with amiodarone and Diflucan may not be a good choice as the patient has grown Angelica glabrata may need to continue with Eraxis for about 5 days on discharge Dictation was produced using [employer] dictation software. please excuse any grammatical, word or spelling errors. Time with Patient: Less than 30
[2025-01-13] MEDS: AMOXIC-POT CLAV 875-125MG 1 EACH TAB PO SCH (20:18)
--- NOTE | 2025-01-14 05:03 | P.PN ---
Subjective Progress Note Date: 01/13/25 This is a pleasant 44-year-old male who was recently admitted after brief cardiac arrest with multiple electrolyte abnormalities being closely monitored. Patient being followed by cardiology and is status post cardiac catheterization recommending maximizing medical management and normal coronary arteries noted. Patient reports to having increasing pain and also generalized weakness although reports will be going home on discharge. Patient did have an elevated white count that had been trending down although is slightly up today with infectious disease following and will repeat CT abdomen for further evaluation. Continue current antibiotics at this time. Case management is following as plan is for LifeVest on discharge. Recommend incentive spirometer as patient is requiring oxygen and may require oxygen on discharge. Will reattempt home oxygen evaluation. Encourage increase activity as tolerated with sitting up out of the bed more frequently. Labs reviewed and white count is 25.52, hemoglobin is 8.8, platelets 446, sodium 137 with a potassium of 3.5, BUN is 5 and creatinine 0.33. Calcium is slightly low at 6.2, total bili is 1.4. 12/31/2024 Patient is seen in follow-up with multiple consultations following. White count was elevated although slightly improving with infectious disease following we will continue current regimen at this time. Patient continues to report short ness of breath and generalized pain and continues to require oxygen. Will need home O2 assessment. Patient underwent CT abdomen and will consult general surgery for evaluation. Encouraged increased activity as tolerated with sitting up more frequently in the chair. 01/01/2025 Patient seen and evaluated this morning currently scheduled to undergo HIDA scan per general surgery and patient is currently requesting increase in pain medications as she reports diffuse pain. Pain medications through the IV are currently on hold as patient will be undergoing HIDA scan. Patient's white count is elevated with infectious disease following maintained on Zosyn and will continue. Patient is afebrile with no reports of chest pain or palpitations. Patient is reporting some congestion and occasional shortness of breath. Will order chest x-ray as well. Continue DuoNeb treatments and supplemental oxygen as needed. Patient currently maintained on 5 L. Would recommend PT/OT therapy evaluation as patient has had prolonged cough elevation and appears frail and extremely weak. 01/02/2025 Patient is seen in follow-up was a CODE BLUE on 3 S. and was transferred to ICU intubated for respiratory arrest with cardiac arrest and ROSC received. Patient remains a full code per sister and will continue on mechanical ventilation with an FiO2 of 100% and PEEP of 10 currently. Blood pressures are soft and patient is maintained on pressor support and hemoglobin was noted to be 6.9 this morning and will give 1 unit of PRBC. White count remains elevated at 24.18 and maintained on antibiotics with infectious disease following. Sodium is 141 with a potassium of 3.0, creatinine 0.48, blood sugars elevated, lactic acid 5.1 with a calcium that is low at 5.6, magnesium 1.2. Prognosis remains extremely guarded and CODE STATUS needs to be addressed again. 01/03/2025 Patient is seen in follow-up in the ICU maintained on mechanical ventilation and FiO2 was adjusted per pulmonary management assistant but FiO2 is currently 60%. Patient maintained on pressor support including Levophed and vasopressin and also receiving Lasix. Blood sugars have been elevated and will adjust insulins accordingly including increasing long-acting. Patient is continued on tube feeds and will continue at this time. Per nursing staff patient did require Chris hugger for some time for hypothermia. Hemoglobin is stable at 8.3 status post 1 unit of PRBC, white count remains elevated at 19.68, sodium is 134 and potassium was again 2.9 with replacement of 3.5 and continued on protocol creatinine is stable at 0.63. Preliminary sputum culture from 12/31/2024 showing yeast species. 01/04/2025 Patient is seen in follow-up continues to be in the ICU on mechanical ventilation with multiple consultations following. FiO2 is 60% and patient is continued on low-dose pressor and support, Levophed has been discontinued and p atient has been weaned off fentanyl and patient is not on Versed at this time. Patient continues on sedation with propofol and per nursing staff will undergo sedation trials to assess mentation. Patient is continued on antibiotics and will continue with infectious disease following. Blood sugars have been on the lower side and tube feedings have been started and tolerating thus far working on goal and will discontinue long-acting insulin and monitor closely with just Accu-Cheks and sliding scale for now. Prognosis remains extremely guarded and patient remains full code per family at this time. White count remains elevated at 23.15, hemoglobin is stable at 9.0 with no active bleeding noted, platelets are 319, sodium is 134 with a potassium of 3.8, BUN is 5 and creatinine is 0.79. Magnesium is 1.6 and receiving replacement. 01/05/2025 Patient is seen in follow-up today maintained on mechanical ventilation with no plans of weaning today continues on low-dose Levophed and other pressor support being weaned. Per nursing staff patient's blood pressures were extremely low overnight requiring reinitiation of the Levophed which is currently being weaned as tolerated. Patient is maintained on mechanical ventilation with an FiO2 of 40% PEEP is at 10. Patient remains full code and will attempt to contact family to discuss treatment plan and overall prognosis. Patient continues with Pleurx catheter in the left chest wall with no leak noted recommending to continue for another 24 hours as there was a noted tiny pneumothorax on the left on imaging. Per nursing staff patient is experiencing a mild rectal prolapse and would recommend keeping the area moist and lubricated as much as possible. Patient continues to have loose stools and is maintained on antibiotics with infectious disease following. 01/06/2025 Patient is seen in follow-up continues in the ICU on mechanical ventilation with an FiO2 of 40% PEEP is being adjusted to 6 per pulmonary management assistant cleared no plans of weaning at this time recommending initiating small sedation trials to assess mentation. Patient has been weaned off pressor support with medications being adjusted and cardiology following. Patient continues with Thora vent on the left and per management assistant will be capped with possible removal in the next 24 hours as chest x-ray reveals a tiny pneumothorax that is stable. Patient continues on IV Lasix and will continue as patient is extremely edematous in upper and lower extremities. Patient continues on IV antibiotics in the form of Zosyn and Flagyl and also Diflucan and will continue with infectious disease following. Repeat cultures are pending at this time and patient remains afeb rile. 01/07/2025 Patient is seen in follow-up continues on mechanical ventilation with an FiO2 of 40% and PEEP of 6. Per nursing staff patient did become more hypotensive and tachycardic requiring Levophed to be resumed and currently on hold as blood pressures have improved and will continue to wean as tolerated. Patient continues with significant volume overload and is maintained on IV Lasix daily. Patient continues to have an elevated white count with worsening and also having increased fevers with infectious disease following and will add daptomycin and repeat cultures. Patient remains sedated at this time with no plans of weaning. Pulmonary management assistant following closely. Thora vent on the left is being removed and will follow-up with repeat chest x-rays. 01/08/2025 Patient seen in follow-up continues to be on mechanical ventilation with no vent changes today maintained on FiO2 of 40% and PEEP of 6. Per nursing staff patient underwent sedation holiday this morning although breathing rapidly with respirations of 30 to 40/min and was placed back on propofol. Discussion of we aning propofol and attempting Precedex with sedation holidays. Patient is off pressor support at this time and will monitor closely. White count is elevated at 33 and having low-grade temps maintained on daptomycin and Zosyn with infectious disease following closely. Per nursing staff patient is having multiple episodes of loose stools most likely secondary to tube feeds. C. difficile has been negative and will add as needed Imodium. WBC is 33.42, hemoglobin 8.6, platelets are 280, potassium was 3.3 and replaced and follow-up is 4.4, sodium is 141, BUN is 27 with a creatinine of 1.11. Blood sugars being monitored closely and will adjust accordingly 01/09/2025 Patient is seen in follow-up today currently awake and off sedation still requiring some Precedex as patient is extremely anxious and attempting to pull at tubing. Plan is for possible extubation today and has been tolerating weaning trials. Patient is afebrile continues with occasional low-grade fever maintained on antibiotics infectious disease following closely. White count is above 30 and patient will be started on Eraxis per ID recommendations. Recommend repeat labs. Patient is off pressor support currently and cardiology following closely. Patient continues with LifeVest at this time. Patient continues with loose stools and C. difficile testing has been negative. Continue Imodium as needed. 01/12/2025 Patient is seen in follow-up today currently on stepdown out of the ICU maintained on 2 L via nasal cannula and weaning FiO2 as tolerated. Patient with significant weakness with case management/social work following working on discharge planning to [facility]. Patient continues to report significant amount of pain and medications are being adjusted. Recommend PT/OT therapy daily. Patient is afebrile with no reports of chest pain or palpitations. Patient does continue with LifeVest at this time with cardiology following. 01/13/2025 Patient is seen in follow-up today maintained on Eraxis and discussed with infectious disease as patient will require more days to complete the treatment. Unfortunately [facility] will not accept the patient while on this medication due to cost pleat treatment prior to discharging. Patient is afebrile with no reports of chest pain or palpitations. Patient is reporting continued generalized weakness and bodyaches white blood count is trending down and patient is afebr ile. Will continue to monitor and follow-up on repeat labs. Case management is following and working with [facility] liaison be submitting for insurance authorization soon. Patient to complete antibiotic therapy to therapy daily. Potassium is low today at 2.9 and will be replaced per protocol. Magnesium is 1.7. Review of systems: Constitutional: No reports of fatigue, fever, or chills Cardiovascular: No reports of chest pain or palpitations Respiratory: No reports of shortness of breath or cough GI: No reports of nausea, vomiting, or diarrhea : No reports of dysuria or retention Neurovascular: reports of weakness and difficulty ambulating, reports significant generalized pain PHYSICAL EXAMINATION: GENERAL: The patient is alert and oriented x3, well developed, elderly appearing, thin built, cachectic, chronically ill-appearing, pale HEENT: Pupils are round and equally reacting to light. EOMI. no scleral icterus. No conjunctival pallor. Normocephalic, atraumatic. No pharyngeal erythema. No thyromegaly. CARDIOVASCULAR: S1 and S2 muffled PULMONARY: diminished breath sounds bilaterally with no wheezing, scattered coarse rhonchi noted with upper bronchial congestion. Crackles noted at the bases ABDOMEN: soft. Nontender on exam. Thin non-distended, normoactive bowel so unds. No palpable organomegaly. MUSCULOSKELETAL: No joint swelling or deformity. EXTREMITIES: No cyanosis, clubbing, or pedal edema. Bilateral upper extremities edematous NEUROLOGICAL: Gross neurological examination did not reveal any focal deficits. Unable to completely assess as patient is maintained on mechanical ventilation not ia sedation is off and patient is following commands working on weaning trials SKIN: No rashes. Extremely pale Assessment: Cardiac arrest, possibly secondary to ventricular tachycardia secondary to multiple electrolyte abnormalities Respiratory arrest with cardiac arrest requiring mechanical ventilation 01/01/2025 likely secondary to V. tach Severe hypokalemia, hypomagnesemia, hypocalcemia, improving after replacement, continue to monitor closely History of EtOH Candidal pneumonia from the sputum Nonischemic cardiomyopathy possible Takotsubo, EF was 20 to 25%, repeat is 30- 35, continued on LifeVest Possible acute colitis as noted on imaging Continued ongoing diarrhea, C. difficile was negative likely secondary to tube feeds, being evaluated by speech for diet Diabetes mellitus, type II, uncontrolled with hyperglycemia History of pancreatitis Tachycardia Anemia, chronic, hemoglobin stable above 8 today Concerns of possible right lower lobe pneumonia on admission, possibly aspiration History of splenic vein thrombosis, was on Eliquis Hepatic encephalopathy Moderate protein calorie malnutrition with a BMI of 17.7 GI prophylaxis DVT prophylaxis Full code Plan: Recommend to continue with current medications and management with multiple consultations following. Patient is out of the ICU and weaning FiO2 as tolerated currently on 2 L. Continue incentive spirometer use at least 10 times every hour while awake Patient had respiratory arrest with cardiac arrest on 01/01/2025 and was placed on mechanical ventilation. Pressor supports discontinued and being weaned off mech vent today 01/09 infectious disease following as white count remains elevated although is trending down and maintained on Eraxis. Will need to discuss further with infec tious disease regarding discharge planning if patient will require IV antibiotics on discharge Cardiology following and patient is status post catheterization recommending maximizing medical management and case management following and has received LifeVest. Patient does currently have LifeVest on. Patient has transition to oral amiodarone Patient continues to have multiple loose stools nursing staff and C. difficile testing has been negative, likely secondary to tube feeds and continued anti biotics, continue Imodium as needed. Patient is on a heart healthy diet and tolerating Continue monitoring Accu-Cheks AC and at bedtime and adjust accordingly. Follow-up on repeat labs and replace electrolytes per protocol. Replace potassium and magnesium per protocol as potassium was 2.9 and magnesium was 1.7 today Will discuss with social work regarding discharge planning to [facility], patient will also require insurance authorization as discussed previously and patient will be completed with antibiotic therapy that is not covered by [facility] on 01/18/2025 Due to multiple complex medical issues, overall prognosis is extremely guarded Possible discharge planning early next week The impression and plan of care has been dictated by Ana Duggan, Nurse Practitioner as directed. Dr. Germain MD I have performed a history and examination and MDM of this patient, discussed the same with the dictator, and agree with the dictator's assessment and plan as written ,documented as a scribe. Based on total visit time, I have performed more than 50% of the visit. Objective - Vital Signs Vital signs: Vital Signs Temp 97.6 F 01/14/25 04:00 Pulse 103 H 01/14/25 04:00 Resp 18 01/14/25 04:00 BP 127/91 01/14/25 04:00 Pulse Ox 99 01/14/25 04:00 FiO2 21 01/11/25 08:40 Intake & Output 01/13/25 01/13/25 01/14/25 06:59 18:59 06:59 Intake Total 0 Output Total 2200 500 Balance -2200 -500 Weight 61.5 kg Intake: Oral 0 Output: Urine 2200 500 Other: Voiding Method Indwelling Catheter Indwelling Catheter Indwelling Catheter # Bowel Movements 1 ABP, PAP, CO, CI - Last Documented Arterial Blood Pressure 153/76 - Labs CBC & Chem 7: 01/13/25 07:17 01/13/25 17:32 Labs: Abnormal Lab Results - Last 24 Hours (Table) 01/13/25 01/13/25 01/13/25 Range/Units 06:06 07:17 07:17 WBC 15.26 H (4.50-10.00) 10*3/uL RBC 2.94 L (4.40-5.60) 10*6/uL Hgb 9.0 L (13.0-17.0) g/dL Hct 29.2 L (39.6-50.0) % MCV 99.3 H (80.0-97.0) fL MCHC 30.8 L (32.0-37.0) g/dL Plt Count 828 H (140-440) 10*3/uL Immature Gran # 0.32 H (0.00-0.04) 10*3/uL Neutrophils # 10.85 H (1.80-7.70) 10*3/uL Monocytes # 1.73 H (0.20-1.00) 10*3/uL Basophils # 0.11 H (0.00-0.10) 10*3/uL Potassium 2.9 L (3.5-5.1) mmol/L Chloride 108 H (98-107) mmol/L Carbon Dioxide 18 L (22-30) mmol/L Glucose 105 H (74-99) mg/dL POC Glucose (mg/dL) 137 H (70-110) mg/dL Calcium 8.3 L (8.4-10.2) mg/dL Alkaline Phosphatase 304 H (38-126) U/L Total Protein 5.1 L (6.3-8.2) g/dL Albumin 2.3 L (3.5-5.0) g/dL 01/13/25 Range/Units 17:32 WBC (4.50-10.00) 10*3/uL RBC (4.40-5.60) 10*6/uL Hgb (13.0-17.0) g/dL Hct (39.6-50.0) % MCV (80.0-97.0) fL MCHC (32.0-37.0) g/dL Plt Count (140-440) 10*3/uL Immature Gran # (0.00-0.04) 10*3/uL Neutrophils # (1.80-7.70) 10*3/uL Monocytes # (0.20-1.00) 10*3/uL Basophils # (0.00-0.10) 10*3/uL Potassium 3.1 L (3.5-5.1) mmol/L Chloride (98-107) mmol/L Carbon Dioxide (22-30) mmol/L Glucose (74-99) mg/dL POC Glucose (mg/dL) (70-110) mg/dL Calcium (8.4-10.2) mg/dL Alkaline Phosphatase (38-126) U/L Total Protein (6.3-8.2) g/dL Albumin (3.5-5.0) g/dL
[2025-01-14 08:36] LABS: Basophils # (A) 0.08 10*3/uL (0.00-0.10); Basophils % (A) 0.5 %; Eosinophils # (A) 0.31 10*3/uL (0.04-0.35); Eosinophils % (A) 2.1 %; HCT 29.3 % (39.6-50.0); HGB 8.9 g/dL (13.0-17.0); Lymphocytes # (A) 1.96 10*3/uL (0.90-5.00); Lymphocytes % (A) 13.1 %; MCH 30.4 pg (27.0-32.0); MCHC 30.4 g/dL (32.0-37.0); MCV 100.0 fL (80.0-97.0); Monocytes # (A) 1.56 10*3/uL (0.20-1.00); Monocytes % (A) 10.4 %; Neutrophils # (A) 10.79 10*3/uL (1.80-7.70); Neutrophils % (A) 72.3 %; Platelet Count 968 10*3/uL (140-440); RBC 2.93 10*6/uL (4.40-5.60); RDW 21.7 % (11.5-14.5); WBC 14.94 10*3/uL (4.50-10.00)
[2025-01-14 09:01] LABS: African American GFR (CKD) >90 (>60 ml/min/1.73 sqM); Anion Gap 16 mmol/L; Blood Urea Nitrogen 13 mg/dL (9-20); Calcium 8.5 mg/dL (8.4-10.2); Carbon Dioxide 18 mmol/L (22-30); Chloride 109 mmol/L (98-107); Glucose 108 mg/dL (74-99); Non-African American GFR(CKD) >90 (>60 ml/min/1.73 sqM); Potassium 3.4 mmol/L (3.5-5.1); Sodium 143 mmol/L (137-145)
[2025-01-14] MEDS ORDERED: Potassium Replacement Protocol 1 EACH MISC MISCELLANE PRN (10:57)
[2025-01-14] MEDS: POTASSIUM CHLORIDE ER 20 MEQ TAB.ER PO SCH (11:52)
--- NOTE | 2025-01-14 12:48 | P.PN ---
Subjective Progress Note Date: 01/14/25 Principal diagnosis: Reason for follow-up is pneumonia/colitis Patient is a 44-year-old male with a past medical history significant for CVA TIA reflux history of recurrent/chronic pancreatitis from alcoholism and hypertension patient was brought into the hospital for lethargy seizure activity did have a cardiac arrest/V. tach requiring shock and subsequent admitted to the hospital.Patient did have a cardiac arrest last night patient is status post resuscitation intubation and transfer the ICU also have a right-sided pneumothorax. On today's visit that is 01/14/2025,the patient denies any fever or any chills, patient is breathing comfortably on room air, the patient has been complaining of chest pain from his chest compression but no shortness of breath and no significant cough, patient denies abdominal pain, no nausea vomiting or diarrhea. Patient white count was down to 14.94, creatinine 0.63 Objective - Vital Signs Vital signs: Vital Signs Temp 98.1 F 01/14/25 08:00 Pulse 108 H 01/14/25 08:00 Resp 16 01/14/25 08:00 BP 128/95 01/14/25 08:00 Pulse Ox 100 01/14/25 08:00 FiO2 21 01/11/25 08:40 Intake & Output 01/13/25 01/14/25 01/14/25 18:59 06:59 18:59 Intake Total 0 Output Total 2200 500 1 Balance -2200 -500 -1 Intake: Oral 0 Output: Urine 2200 500 Stool 1 Other: Voiding Method Indwelling Catheter Indwelling Catheter Indwelling Catheter # Bowel Movements 1 ABP, PAP, CO, CI - Last Documented Arterial Blood Pressure 153/76 - Exam GENERAL DESCRIPTION: Middle-age male lying in bed in no distress RESPIRATORY SYSTEM: Unlabored breathing , decreased breath sounds at bases HEART: S1 S2 regular rate and rhythm , ABDOMEN: Soft , no tenderness EXTREMITIES: No edema feet - Labs CBC & Chem 7: 01/14/25 08:14 01/14/25 08:14 Labs: Abnormal Lab Results - Last 24 Hours (Table) 01/13/25 01/14/25 01/14/25 Range/Units 17:32 08:14 08:14 WBC 14.94 H (4.50-10.00) 10*3/uL RBC 2.93 L (4.40-5.60) 10*6/uL Hgb 8.9 L (13.0-17.0) g/dL Hct 29.3 L (39.6-50.0) % MCV 100.0 H (80.0-97.0) fL MCHC 30.4 L (32.0-37.0) g/dL Plt Count 968 H (140-440) 10*3/uL Immature Gran # 0.24 H (0.00-0.04) 10*3/uL Neutrophils # 10.79 H (1.80-7.70) 10*3/uL Monocytes # 1.56 H (0.20-1.00) 10*3/uL Potassium 3.1 L 3.4 L (3.5-5.1) mmol/L Chloride 109 H (98-107) mmol/L Carbon Dioxide 18 L (22-30) mmol/L Creatinine 0.63 L (0.66-1.25) mg/dL Glucose 108 H (74-99) mg/dL Assessment and Plan (1) Aspiration pneumonitis Current Visit: Yes Status: Acute Code(s): J69.0 - PNEUMONITIS DUE TO INHALATION OF FOOD AND VOMIT SNOMED Code(s): 981870662 (2) Colitis Current Visit: Yes Status: Acute Code(s): K52.9 - NONINFECTIVE GASTROENTERITIS AND COLITIS, UNSPECIFIED SNOMED Code(s): 10502006 (3) Cholecystitis Current Visit: Yes Status: Acute Code(s): K81.9 - CHOLECYSTITIS, UNSPECIFIED SNOMED Code(s): 40936126 (4) Oropharyngeal candidiasis Current Visit: Yes Status: Acute Code(s): B37.0 - CANDIDAL STOMATITIS SNOMED Code(s): 05082594 Plan: 1patient presented to hospital with sepsis in this patient who did have tachycardia hypotension elevated white count meeting criteria for SIRS source likely aspiration pneumonitis as the patient did have intractable nausea vomiting before the patient has been brought to the hospital patient also have abnormality on the abdominal pelvis CT concerning for colitis question of infectious etiology need to be ruled out patient did not recall if he has been on antibiotic in the recent past 2-sputum cultures collected on 12/31/2024 reported as yeast, Angelica glabrata 3-patient CT as well as ultrasound has been suspicious for cholecystitis HIDA scan has been suspicious for chronic cholecystitis General Surgery following the patient 4patient did have a cardiac arrest, patient was resuscitated and intubated in the ICU, patient did have a negative MRSA nasal screen repeat cultures so far negative 5patient did have resolution of his fever and white count down to 14,000 today 6patient is currently on oral Augmentin and Eraxis day #12/23 question concern answered Dictation was produced using [employer] dictation software. please excuse any grammatical, word or spelling errors. Time with Patient: Less than 30
[2025-01-15 08:15] LABS: Basophils # (A) 0.10 10*3/uL (0.00-0.10); Basophils % (A) 0.7 %; Eosinophils # (A) 0.35 10*3/uL (0.04-0.35); Eosinophils % (A) 2.4 %; HCT 28.3 % (39.6-50.0); HGB 8.8 g/dL (13.0-17.0); Lymphocytes # (A) 1.81 10*3/uL (0.90-5.00); Lymphocytes % (A) 12.4 %; MCH 31.5 pg (27.0-32.0); MCHC 31.1 g/dL (32.0-37.0); MCV 101.4 fL (80.0-97.0); Monocytes # (A) 1.68 10*3/uL (0.20-1.00); Monocytes % (A) 11.5 %; Neutrophils # (A) 10.46 10*3/uL (1.80-7.70); Neutrophils % (A) 71.5 %; Platelet Count 955 10*3/uL (140-440); RBC 2.79 10*6/uL (4.40-5.60); RDW 21.0 % (11.5-14.5); WBC 14.62 10*3/uL (4.50-10.00)
[2025-01-15 08:41] LABS: African American GFR (CKD) >90 (>60 ml/min/1.73 sqM); Anion Gap 13 mmol/L; Blood Urea Nitrogen 10 mg/dL (9-20); Calcium 8.5 mg/dL (8.4-10.2); Carbon Dioxide 18 mmol/L (22-30); Chloride 109 mmol/L (98-107); Glucose 117 mg/dL (74-99); Magnesium 1.2 mg/dL (1.6-2.3); Non-African American GFR(CKD) >90 (>60 ml/min/1.73 sqM); Potassium 3.6 mmol/L (3.5-5.1); Sodium 140 mmol/L (137-145)
--- NOTE | 2025-01-15 09:09 | P.PN ---
Subjective Progress Note Date: 01/14/25 This is a pleasant 44-year-old male who was recently admitted after brief cardiac arrest with multiple electrolyte abnormalities being closely monitored. Patient being followed by cardiology and is status post cardiac catheterization recommending maximizing medical management and normal coronary arteries noted. Patient reports to having increasing pain and also generalized weakness although reports will be going home on discharge. Patient did have an elevated white count that had been trending down although is slightly up today with infectious disease following and will repeat CT abdomen for further evaluation. Continue current antibiotics at this time. Case management is following as plan is for LifeVest on discharge. Recommend incentive spirometer as patient is requiring oxygen and may require oxygen on discharge. Will reattempt home oxygen evaluation. Encourage increase activity as tolerated with sitting up out of the bed more frequently. Labs reviewed and white count is 25.52, hemoglobin is 8.8, platelets 446, sodium 137 with a potassium of 3.5, BUN is 5 and creatinine 0.33. Calcium is slightly low at 6.2, total bili is 1.4. 12/31/2024 Patient is seen in follow-up with multiple consultations following. White count was elevated although slightly improving with infectious disease following we will continue current regimen at this time. Patient continues to report short ness of breath and generalized pain and continues to require oxygen. Will need home O2 assessment. Patient underwent CT abdomen and will consult general surgery for evaluation. Encouraged increased activity as tolerated with sitting up more frequently in the chair. 01/01/2025 Patient seen and evaluated this morning currently scheduled to undergo HIDA scan per general surgery and patient is currently requesting increase in pain medications as she reports diffuse pain. Pain medications through the IV are currently on hold as patient will be undergoing HIDA scan. Patient's white count is elevated with infectious disease following maintained on Zosyn and will continue. Patient is afebrile with no reports of chest pain or palpitations. Patient is reporting some congestion and occasional shortness of breath. Will order chest x-ray as well. Continue DuoNeb treatments and supplemental oxygen as needed. Patient currently maintained on 5 L. Would recommend PT/OT therapy evaluation as patient has had prolonged cough elevation and appears frail and extremely weak. 01/02/2025 Patient is seen in follow-up was a CODE BLUE on 3 S. and was transferred to ICU intubated for respiratory arrest with cardiac arrest and ROSC received. Patient remains a full code per sister and will continue on mechanical ventilation with an FiO2 of 100% and PEEP of 10 currently. Blood pressures are soft and patient is maintained on pressor support and hemoglobin was noted to be 6.9 this morning and will give 1 unit of PRBC. White count remains elevated at 24.18 and maintained on antibiotics with infectious disease following. Sodium is 141 with a potassium of 3.0, creatinine 0.48, blood sugars elevated, lactic acid 5.1 with a calcium that is low at 5.6, magnesium 1.2. Prognosis remains extremely guarded and CODE STATUS needs to be addressed again. 01/03/2025 Patient is seen in follow-up in the ICU maintained on mechanical ventilation and FiO2 was adjusted per pulmonary recreation facility attendant but FiO2 is currently 60%. Patient maintained on pressor support including Levophed and vasopressin and also receiving Lasix. Blood sugars have been elevated and will adjust insulins accordingly including increasing long-acting. Patient is continued on tube feeds and will continue at this time. Per nursing staff patient did require Chris hugger for some time for hypothermia. Hemoglobin is stable at 8.3 status post 1 unit of PRBC, white count remains elevated at 19.68, sodium is 134 and potassium was again 2.9 with replacement of 3.5 and continued on protocol creatinine is stable at 0.63. Preliminary sputum culture from 12/31/2024 showing yeast species. 01/04/2025 Patient is seen in follow-up continues to be in the ICU on mechanical ventilation with multiple consultations following. FiO2 is 60% and patient is continued on low-dose pressor and support, Levophed has been discontinued and p atient has been weaned off fentanyl and patient is not on Versed at this time. Patient continues on sedation with propofol and per nursing staff will undergo sedation trials to assess mentation. Patient is continued on antibiotics and will continue with infectious disease following. Blood sugars have been on the lower side and tube feedings have been started and tolerating thus far working on goal and will discontinue long-acting insulin and monitor closely with just Accu-Cheks and sliding scale for now. Prognosis remains extremely guarded and patient remains full code per family at this time. White count remains elevated at 23.15, hemoglobin is stable at 9.0 with no active bleeding noted, platelets are 319, sodium is 134 with a potassium of 3.8, BUN is 5 and creatinine is 0.79. Magnesium is 1.6 and receiving replacement. 01/05/2025 Patient is seen in follow-up today maintained on mechanical ventilation with no plans of weaning today continues on low-dose Levophed and other pressor support being weaned. Per nursing staff patient's blood pressures were extremely low overnight requiring reinitiation of the Levophed which is currently being weaned as tolerated. Patient is maintained on mechanical ventilation with an FiO2 of 40% PEEP is at 10. Patient remains full code and will attempt to contact family to discuss treatment plan and overall prognosis. Patient continues with Pleurx catheter in the left chest wall with no leak noted recommending to continue for another 24 hours as there was a noted tiny pneumothorax on the left on imaging. Per nursing staff patient is experiencing a mild rectal prolapse and would recommend keeping the area moist and lubricated as much as possible. Patient continues to have loose stools and is maintained on antibiotics with infectious disease following. 01/06/2025 Patient is seen in follow-up continues in the ICU on mechanical ventilation with an FiO2 of 40% PEEP is being adjusted to 6 per pulmonary recreation facility attendant cleared no plans of weaning at this time recommending initiating small sedation trials to assess mentation. Patient has been weaned off pressor support with medications being adjusted and cardiology following. Patient continues with Thora vent on the left and per recreation facility attendant will be capped with possible removal in the next 24 hours as chest x-ray reveals a tiny pneumothorax that is stable. Patient continues on IV Lasix and will continue as patient is extremely edematous in upper and lower extremities. Patient continues on IV antibiotics in the form of Zosyn and Flagyl and also Diflucan and will continue with infectious disease following. Repeat cultures are pending at this time and patient remains afeb rile. 01/07/2025 Patient is seen in follow-up continues on mechanical ventilation with an FiO2 of 40% and PEEP of 6. Per nursing staff patient did become more hypotensive and tachycardic requiring Levophed to be resumed and currently on hold as blood pressures have improved and will continue to wean as tolerated. Patient continues with significant volume overload and is maintained on IV Lasix daily. Patient continues to have an elevated white count with worsening and also having increased fevers with infectious disease following and will add daptomycin and repeat cultures. Patient remains sedated at this time with no plans of weaning. Pulmonary recreation facility attendant following closely. Thora vent on the left is being removed and will follow-up with repeat chest x-rays. 01/08/2025 Patient seen in follow-up continues to be on mechanical ventilation with no vent changes today maintained on FiO2 of 40% and PEEP of 6. Per nursing staff patient underwent sedation holiday this morning although breathing rapidly with respirations of 30 to 40/min and was placed back on propofol. Discussion of we aning propofol and attempting Precedex with sedation holidays. Patient is off pressor support at this time and will monitor closely. White count is elevated at 33 and having low-grade temps maintained on daptomycin and Zosyn with infectious disease following closely. Per nursing staff patient is having multiple episodes of loose stools most likely secondary to tube feeds. C. difficile has been negative and will add as needed Imodium. WBC is 33.42, hemoglobin 8.6, platelets are 280, potassium was 3.3 and replaced and follow-up is 4.4, sodium is 141, BUN is 27 with a creatinine of 1.11. Blood sugars being monitored closely and will adjust accordingly 01/09/2025 Patient is seen in follow-up today currently awake and off sedation still requiring some Precedex as patient is extremely anxious and attempting to pull at tubing. Plan is for possible extubation today and has been tolerating weaning trials. Patient is afebrile continues with occasional low-grade fever maintained on antibiotics infectious disease following closely. White count is above 30 and patient will be started on Eraxis per ID recommendations. Recommend repeat labs. Patient is off pressor support currently and cardiology following closely. Patient continues with LifeVest at this time. Patient continues with loose stools and C. difficile testing has been negative. Continue Imodium as needed. 01/12/2025 Patient is seen in follow-up today currently on stepdown out of the ICU maintained on 2 L via nasal cannula and weaning FiO2 as tolerated. Patient with significant weakness with case management/social work following working on discharge planning to [facility]. Patient continues to report significant amount of pain and medications are being adjusted. Recommend PT/OT therapy daily. Patient is afebrile with no reports of chest pain or palpitations. Patient does continue with LifeVest at this time with cardiology following. 01/13/2025 Patient is seen in follow-up today maintained on Eraxis and discussed with infectious disease as patient will require more days to complete the treatment. Unfortunately [facility] will not accept the patient while on this medication due to cost pleat treatment prior to discharging. Patient is afebrile with no reports of chest pain or palpitations. Patient is reporting continued generalized weakness and bodyaches white blood count is trending down and patient is afebr ile. Will continue to monitor and follow-up on repeat labs. Case management is following and working with [facility] liaison be submitting for insurance authorization soon. Patient to complete antibiotic therapy to therapy daily. Potassium is low today at 2.9 and will be replaced per protocol. Magnesium is 1.7. 01/14/2025 Patient is seen in follow-up today reports to feeling improved although continues with significant weakness. Patient reports is tolerating diet and attempting to eat more. White count is trending down and patient is maintained on Eraxis with infectious disease following. Recommend to continue to complete the course and will need 3 more days of Eraxis prior to going to [facility]. Plan is for [facility] once patient is stable and has completed Eraxis course. Patient is afebrile denies any worsening shortness of breath and denies chest pain. Patient does continue with LifeVest at this time. Would recommend PT/OT therapy daily and monitoring closely for any signs of aspiration. Review of systems: Constitutional: No reports of fatigue, fever, or chills Cardiovascular: No reports of chest pain or palpitations Respiratory: No reports of worsening shortness of breath or cough GI: No reports of nausea, vomiting, or diarrhea, reports to tolerating diet and eating more : No reports of dysuria or retention Neurovascular: reports of weakness and difficulty ambulating, reports significant generalized pain PHYSICAL EXAMINATION: GENERAL: The patient is alert and oriented x3, well developed, elderly appearing, thin built, cachectic, chronically ill-appearing, pale HEENT: Pupils are round and equally reacting to light. EOMI. no scleral icterus. No conjunctival pallor. Normocephalic, atraumatic. No pharyngeal erythema. No thyromegaly. CARDIOVASCULAR: S1 and S2 muffled PULMONARY: diminished breath sounds bilaterally with no wheezing, scattered coarse rhonchi noted with upper bronchial congestion. Crackles noted at the bases ABDOMEN: soft. Nontender on exam. Thin non-distended, normoactive bowel sounds. No palpable organomegaly. MUSCULOSKELETAL: No joint swelling or deformity. EXTREMITIES: No cyanosis, clubbing, or pedal edema. Bilateral upper extremities edematous NEUROLOGICAL: Gross neurological examination did not reveal any focal deficits. Unable to completely assess as patient is maintained on mechanical ventilation not me sedation is off and patient is following commands working on weaning trials SKIN: No rashes. Extremely pale Assessment: Cardiac arrest, possibly secondary to ventricular tachycardia secondary to multiple electrolyte abnormalities Respiratory arrest with cardiac arrest requiring mechanical ventilation 01/02/20 25 likely secondary to V. tach Severe hypokalemia, hypomagnesemia, hypocalcemia, improving after replacement, continue to monitor closely History of EtOH Candidal pneumonia from the sputum, maintained on Eraxis and to complete the course while here, 3 doses left today Nonischemic cardiomyopathy possible Takotsubo, EF was 20 to 25%, repeat is 30- 35, continued on LifeVest Possible acute colitis as noted on imaging Continued ongoing diarrhea, C. difficile was negative likely secondary to tube feeds, being evaluated by speech for diet Diabetes mellitus, type II, uncontrolled with hyperglycemia History of pancreatitis Tachycardia Anemia, chronic, hemoglobin stable above 8 today Concerns of possible right lower lobe pneumonia on admission, possibly aspiration History of splenic vein thrombosis, was on Eliquis Hepatic encephalopathy Moderate protein calorie malnutrition with a BMI of 17.7 GI prophylaxis DVT prophylaxis Full code Plan: Recommend to continue with current medications and management with multiple consultations following. Patient is out of the ICU and weaning FiO2 as tolerated currently on 2 L. Continue incentive spirometer use at least 10 times every hour while awake Patient had respiratory arrest with cardiac arrest on 01/01/2025 and was placed on mechanical ventilation. Pressor supports discontinued and being weaned off mech vent today 01/09 infectious disease following as white count remains elevated although is trending down and maintained on Eraxis. Will need to discuss further with infectious disease regarding discharge planning if patient will require IV an tibiotics on discharge Cardiology following and patient is status post catheterization recommending maximizing medical management and case management following and has received LifeVest. Patient does currently have LifeVest on. Patient has transition to oral amiodarone Continue monitoring Accu-Cheks AC and at bedtime and adjust accordingly. Adjust insulins as needed as patient is tolerating more diet and eating and off tube feeds Follow-up on repeat labs and replace electrolytes per protocol. Replace potassium and magnesium per protocol Will discuss with social work regarding discharge planning to [facility], patient will also require insurance authorization as discussed previously and patient will be completed with antibiotic therapy that is not covered by [facility] on 01/18/2025 Due to multiple complex medical issues, overall prognosis is extremely guarded Possible discharge planning early next week The impression and plan of care has been dictated by Nurse Ivelisse Olivier ctitioner as directed. Dr. Germain MD I have performed a history and examination and MDM of this patient, discussed the same with the dictator, and agree with the dictator's assessment and plan as written ,documented as a scribe. Based on total visit time, I have performed more than 50% of the visit. Objective - Vital Signs Vital signs: Vital Signs Temp 97.4 F L 01/14/25 16:00 Pulse 109 H 01/14/25 16:00 Resp 18 01/14/25 16:00 BP 122/86 01/14/25 16:00 Pulse Ox 98 01/14/25 16:00 FiO2 21 01/11/25 08:40 Intake & Output 01/13/25 01/14/25 01/14/25 18:59 06:59 18:59 Intake Total 0 Output Total 2200 500 702 Balance -2200 -500 -702 Intake: Oral 0 Output: Urine 2200 500 700 Stool 2 Other: Voiding Method Indwelling Catheter Indwelling Catheter Indwelling Catheter # Bowel Movements 1 ABP, PAP, CO, CI - Last Documented Arterial Blood Pressure 153/76 - Labs CBC & Chem 7: 01/15/25 07:49 01/15/25 07:49 Labs: Abnormal Lab Results - Last 24 Hours (Table) 01/14/25 01/14/25 Range/Units 08:14 08:14 WBC 14.94 H (4.50-10.00) 10*3/uL RBC 2.93 L (4.40-5.60) 10*6/uL Hgb 8.9 L (13.0-17.0) g/dL Hct 29.3 L (39.6-50.0) % MCV 100.0 H (80.0-97.0) fL MCHC 30.4 L (32.0-37.0) g/dL Plt Count 968 H (140-440) 10*3/uL Immature Gran # 0.24 H (0.00-0.04) 10*3/uL Neutrophils # 10.79 H (1.80-7.70) 10*3/uL Monocytes # 1.56 H (0.20-1.00) 10*3/uL Potassium 3.4 L (3.5-5.1) mmol/L Chloride 109 H (98-107) mmol/L Carbon Dioxide 18 L (22-30) mmol/L Creatinine 0.63 L (0.66-1.25) mg/dL Glucose 108 H (74-99) mg/dL
[2025-01-15] MEDS: MAGNESIUM SULFATE-D5W PMX 1 GM in DEXTROSE/WATER 1 100ML.BAG IVPB SCH (17:27)
--- NOTE | 2025-01-15 22:18 | P.PN ---
Subjective Progress Note Date: 01/15/25 Principal diagnosis: Reason for follow-up is pneumonia/colitis Patient is a 44-year-old male with a past medical history significant for CVA TIA reflux history of recurrent/chronic pancreatitis from alcoholism and hypertension patient was brought into the hospital for lethargy seizure activity did have a cardiac arrest/V. tach requiring shock and subsequent admitted to the hospital.Patient did have a cardiac arrest last night patient is status post resuscitation intubation and transfer the ICU also have a right-sided pneumothorax. On today's visit that is 01/15/2025,the patient remains to be afebrile, patient is on room air not requiring supplemental oxygen and denies any shortness of breath no worsening chest pain or cough.Patient denies having any nausea or vomiting, no abdominal pain and no diarrhea has been reported. Patient white count 14.62, creatinine 0.61 Objective - Vital Signs Vital signs: Vital Signs Temp 97.4 F L 01/15/25 09:10 Pulse 104 H 01/15/25 09:10 Resp 18 01/15/25 09:10 BP 126/89 01/15/25 09:10 Pulse Ox 100 01/15/25 09:10 FiO2 21 01/11/25 08:40 Intake & Output 01/14/25 01/15/25 01/15/25 18:59 06:59 18:59 Output Total 702 601 600 Balance -702 -601 -600 Weight 61.5 kg Output: Urine 700 600 600 Stool 2 1 Other: Voiding Method Indwelling Catheter Indwelling Catheter # Bowel Movements 2 ABP, PAP, CO, CI - Last Documented Arterial Blood Pressure 153/76 - Exam GENERAL DESCRIPTION: Middle-age male lying in bed in no distress RESPIRATORY SYSTEM: Unlabored breathing , decreased breath sounds at bases HEART: S1 S2 regular rate and rhythm , ABDOMEN: Soft , no tenderness EXTREMITIES: No edema feet - Labs CBC & Chem 7: 01/15/25 07:49 01/15/25 07:49 Labs: Abnormal Lab Results - Last 24 Hours (Table) 01/15/25 01/15/25 Range/Units 07:49 07:49 WBC 14.62 H (4.50-10.00) 10*3/uL RBC 2.79 L (4.40-5.60) 10*6/uL Hgb 8.8 L (13.0-17.0) g/dL Hct 28.3 L (39.6-50.0) % MCV 101.4 H (80.0-97.0) fL MCHC 31.1 L (32.0-37.0) g/dL Plt Count 955 H (140-440) 10*3/uL Immature Gran # 0.22 H (0.00-0.04) 10*3/uL Neutrophils # 10.46 H (1.80-7.70) 10*3/uL Monocytes # 1.68 H (0.20-1.00) 10*3/uL Chloride 109 H (98-107) mmol/L Carbon Dioxide 18 L (22-30) mmol/L Creatinine 0.61 L (0.66-1.25) mg/dL Glucose 117 H (74-99) mg/dL Magnesium 1.2 L (1.6-2.3) mg/dL Assessment and Plan (1) Aspiration pneumonitis Current Visit: Yes Status: Acute Code(s): J69.0 - PNEUMONITIS DUE TO INHALATION OF FOOD AND VOMIT SNOMED Code(s): 326260719 (2) Colitis Current Visit: Yes Status: Acute Code(s): K52.9 - NONINFECTIVE GASTROENTERITIS AND COLITIS, UNSPECIFIED SNOMED Code(s): 12017639 (3) Cholecystitis Current Visit: Yes Status: Acute Code(s): K81.9 - CHOLECYSTITIS, UNSPECIFIED SNOMED Code(s): 45976320 (4) Oropharyngeal candidiasis Current Visit: Yes Status: Acute Code(s): B37.0 - CANDIDAL STOMATITIS SNOMED Code(s): 83812956 Plan: 1patient presented to hospital with sepsis in this patient who did have tachycardia hypotension elevated white count meeting criteria for SIRS source likely aspiration pneumonitis as the patient did have intractable nausea vomiting before the patient has been brought to the hospital patient also have abnormality on the abdominal pelvis CT concerning for colitis question of infectious etiology need to be ruled out patient did not recall if he has been on antibiotic in the recent past 2-sputum cultures collected on 12/31/2024 reported as yeast, Angelica glabrata 3-patient CT as well as ultrasound has been suspicious for cholecystitis HIDA scan has been suspicious for chronic cholecystitis General Surgery following the patient 4patient did have a cardiac arrest, patient was resuscitated and intubated in the ICU, patient did have a negative MRSA nasal screen repeat cultures so far negative 5patient did have resolution of his fever and white count down to 14,000 today 6patient is currently on oral Augmentin and Eraxis day #7 which may be enough if that is only medication holding his discharge to the [place] [facility] can be discontinued safely Dictation was produced using [employer] dictation software. please excuse any grammatical, word or spelling errors. Time with Patient: Less than 30
--- NOTE | 2025-01-15 23:18 | P.PN ---
Subjective Progress Note Date: 01/15/25 This is a pleasant 44-year-old male who was recently admitted after brief cardiac arrest with multiple electrolyte abnormalities being closely monitored. Patient being followed by cardiology and is status post cardiac catheterization recommending maximizing medical management and normal coronary arteries noted. Patient reports to having increasing pain and also generalized weakness although reports will be going home on discharge. Patient did have an elevated white count that had been trending down although is slightly up today with infectious disease following and will repeat CT abdomen for further evaluation. Continue current antibiotics at this time. Case management is following as plan is for LifeVest on discharge. Recommend incentive spirometer as patient is requiring oxygen and may require oxygen on discharge. Will reattempt home oxygen evaluation. Encourage increase activity as tolerated with sitting up out of the bed more frequently. Labs reviewed and white count is 25.52, hemoglobin is 8.8, platelets 446, sodium 137 with a potassium of 3.5, BUN is 5 and creatinine 0.33. Calcium is slightly low at 6.2, total bili is 1.4. 12/31/2024 Patient is seen in follow-up with multiple consultations following. White count was elevated although slightly improving with infectious disease following we will continue current regimen at this time. Patient continues to report short ness of breath and generalized pain and continues to require oxygen. Will need home O2 assessment. Patient underwent CT abdomen and will consult general surgery for evaluation. Encouraged increased activity as tolerated with sitting up more frequently in the chair. 01/01/2025 Patient seen and evaluated this morning currently scheduled to undergo HIDA scan per general surgery and patient is currently requesting increase in pain medications as she reports diffuse pain. Pain medications through the IV are currently on hold as patient will be undergoing HIDA scan. Patient's white count is elevated with infectious disease following maintained on Zosyn and will continue. Patient is afebrile with no reports of chest pain or palpitations. Patient is reporting some congestion and occasional shortness of breath. Will order chest x-ray as well. Continue DuoNeb treatments and supplemental oxygen as needed. Patient currently maintained on 5 L. Would recommend PT/OT therapy evaluation as patient has had prolonged cough elevation and appears frail and extremely weak. 01/02/2025 Patient is seen in follow-up was a CODE BLUE on 3 S. and was transferred to ICU intubated for respiratory arrest with cardiac arrest and ROSC received. Patient remains a full code per sister and will continue on mechanical ventilation with an FiO2 of 100% and PEEP of 10 currently. Blood pressures are soft and patient is maintained on pressor support and hemoglobin was noted to be 6.9 this morning and will give 1 unit of PRBC. White count remains elevated at 24.18 and maintained on antibiotics with infectious disease following. Sodium is 141 with a potassium of 3.0, creatinine 0.48, blood sugars elevated, lactic acid 5.1 with a calcium that is low at 5.6, magnesium 1.2. Prognosis remains extremely guarded and CODE STATUS needs to be addressed again. 01/03/2025 Patient is seen in follow-up in the ICU maintained on mechanical ventilation and FiO2 was adjusted per pulmonary ensemble member but FiO2 is currently 60%. Patient maintained on pressor support including Levophed and vasopressin and also receiving Lasix. Blood sugars have been elevated and will adjust insulins accordingly including increasing long-acting. Patient is continued on tube feeds and will continue at this time. Per nursing staff patient did require Chris hugger for some time for hypothermia. Hemoglobin is stable at 8.3 status post 1 unit of PRBC, white count remains elevated at 19.68, sodium is 134 and potassium was again 2.9 with replacement of 3.5 and continued on protocol creatinine is stable at 0.63. Preliminary sputum culture from 12/31/2024 showing yeast species. 01/04/2025 Patient is seen in follow-up continues to be in the ICU on mechanical ventilation with multiple consultations following. FiO2 is 60% and patient is continued on low-dose pressor and support, Levophed has been discontinued and p atient has been weaned off fentanyl and patient is not on Versed at this time. Patient continues on sedation with propofol and per nursing staff will undergo sedation trials to assess mentation. Patient is continued on antibiotics and will continue with infectious disease following. Blood sugars have been on the lower side and tube feedings have been started and tolerating thus far working on goal and will discontinue long-acting insulin and monitor closely with just Accu-Cheks and sliding scale for now. Prognosis remains extremely guarded and patient remains full code per family at this time. White count remains elevated at 23.15, hemoglobin is stable at 9.0 with no active bleeding noted, platelets are 319, sodium is 134 with a potassium of 3.8, BUN is 5 and creatinine is 0.79. Magnesium is 1.6 and receiving replacement. 01/05/2025 Patient is seen in follow-up today maintained on mechanical ventilation with no plans of weaning today continues on low-dose Levophed and other pressor support being weaned. Per nursing staff patient's blood pressures were extremely low overnight requiring reinitiation of the Levophed which is currently being weaned as tolerated. Patient is maintained on mechanical ventilation with an FiO2 of 40% PEEP is at 10. Patient remains full code and will attempt to contact family to discuss treatment plan and overall prognosis. Patient continues with Pleurx catheter in the left chest wall with no leak noted recommending to continue for another 24 hours as there was a noted tiny pneumothorax on the left on imaging. Per nursing staff patient is experiencing a mild rectal prolapse and would recommend keeping the area moist and lubricated as much as possible. Patient continues to have loose stools and is maintained on antibiotics with infectious disease following. 01/06/2025 Patient is seen in follow-up continues in the ICU on mechanical ventilation with an FiO2 of 40% PEEP is being adjusted to 6 per pulmonary ensemble member cleared no plans of weaning at this time recommending initiating small sedation trials to assess mentation. Patient has been weaned off pressor support with medications being adjusted and cardiology following. Patient continues with Thora vent on the left and per ensemble member will be capped with possible removal in the next 24 hours as chest x-ray reveals a tiny pneumothorax that is stable. Patient continues on IV Lasix and will continue as patient is extremely edematous in upper and lower extremities. Patient continues on IV antibiotics in the form of Zosyn and Flagyl and also Diflucan and will continue with infectious disease following. Repeat cultures are pending at this time and patient remains afeb rile. 01/07/2025 Patient is seen in follow-up continues on mechanical ventilation with an FiO2 of 40% and PEEP of 6. Per nursing staff patient did become more hypotensive and tachycardic requiring Levophed to be resumed and currently on hold as blood pressures have improved and will continue to wean as tolerated. Patient continues with significant volume overload and is maintained on IV Lasix daily. Patient continues to have an elevated white count with worsening and also having increased fevers with infectious disease following and will add daptomycin and repeat cultures. Patient remains sedated at this time with no plans of weaning. Pulmonary ensemble member following closely. Thora vent on the left is being removed and will follow-up with repeat chest x-rays. 01/08/2025 Patient seen in follow-up continues to be on mechanical ventilation with no vent changes today maintained on FiO2 of 40% and PEEP of 6. Per nursing staff patient underwent sedation holiday this morning although breathing rapidly with respirations of 30 to 40/min and was placed back on propofol. Discussion of we aning propofol and attempting Precedex with sedation holidays. Patient is off pressor support at this time and will monitor closely. White count is elevated at 33 and having low-grade temps maintained on daptomycin and Zosyn with infectious disease following closely. Per nursing staff patient is having multiple episodes of loose stools most likely secondary to tube feeds. C. difficile has been negative and will add as needed Imodium. WBC is 33.42, hemoglobin 8.6, platelets are 280, potassium was 3.3 and replaced and follow-up is 4.4, sodium is 141, BUN is 27 with a creatinine of 1.11. Blood sugars being monitored closely and will adjust accordingly 01/09/2025 Patient is seen in follow-up today currently awake and off sedation still requiring some Precedex as patient is extremely anxious and attempting to pull at tubing. Plan is for possible extubation today and has been tolerating weaning trials. Patient is afebrile continues with occasional low-grade fever maintained on antibiotics infectious disease following closely. White count is above 30 and patient will be started on Eraxis per ID recommendations. Recommend repeat labs. Patient is off pressor support currently and cardiology following closely. Patient continues with LifeVest at this time. Patient continues with loose stools and C. difficile testing has been negative. Continue Imodium as needed. 01/12/2025 Patient is seen in follow-up today currently on stepdown out of the ICU maintained on 2 L via nasal cannula and weaning FiO2 as tolerated. Patient with significant weakness with case management/social work following working on discharge planning to [facility]. Patient continues to report significant amount of pain and medications are being adjusted. Recommend PT/OT therapy daily. Patient is afebrile with no reports of chest pain or palpitations. Patient does continue with LifeVest at this time with cardiology following. 01/13/2025 Patient is seen in follow-up today maintained on Eraxis and discussed with infectious disease as patient will require more days to complete the treatment. Unfortunately ECF will not accept the patient while on this medication due to cost pleat treatment prior to discharging. Patient is afebrile with no reports of chest pain or palpitations. Patient is reporting continued generalized weakness and bodyaches white blood count is trending down and patient is afebr ile. Will continue to monitor and follow-up on repeat labs. Case management is following and working with [facility] liaison be submitting for insurance authorization soon. Patient to complete antibiotic therapy to therapy daily. Potassium is low today at 2.9 and will be replaced per protocol. Magnesium is 1.7. 01/14/2025 Patient is seen in follow-up today reports to feeling improved although continues with significant weakness. Patient reports is tolerating diet and attempting to eat more. White count is trending down and patient is maintained on Eraxis with infectious disease following. Recommend to continue to complete the course and will need 3 more days of Eraxis prior to going to ECF. Plan is for [facility] once patient is stable and has completed Eraxis course. Patient is afebrile denies any worsening shortness of breath and denies chest pain. Patient does continue with LifeVest at this time. Would recommend PT/OT therapy daily and monitoring closely for any signs of aspiration. 01/15/2025 Patient is seen in follow-up today clinically improving and reports is working with physical therapy although significantly weak and will be going to ECF on discharge if insurance authorization is obtained. Authorization being submitted and pending at this time although [facility] unable to accommodate if patient is maintained on Eraxis. Infectious disease following and will discuss further regarding discharge planning. Authorization remains pending and unsure if patient will discharge given the January holiday is coming up and insurance companies are closed on this day. Will likely discharge on Sunday. Encouraged increase activity as tolerated and recommend getting up and sitting in the chair more frequently with all meals. Will follow-up on chest x-ray in the a.m. along with repeat labs. Review of systems: Constitutional: No reports of fatigue, fever, or chills Cardiovascular: No reports of chest pain or palpitations Respiratory: No reports of worsening shortness of breath or cough GI: No reports of nausea, vomiting, or diarrhea, reports to tolerating diet and eating more : No reports of dysuria or retention Neurovascular: reports of weakness and difficulty ambulating, reports significant generalized pain PHYSICAL EXAMINATION: GENERAL: The patient is alert and oriented x3, well developed, elderly appearing, thin built, cachectic, chronically ill-appearing, pale HEENT: Pupils are round and equally reacting to light. EOMI. no scleral icterus. No conjunctival pallor. Normocephalic, atraumatic. No pharyngeal erythema. No thyromegaly. CARDIOVASCULAR: S1 and S2 muffled PULMONARY: diminished breath sounds bilaterally with no wheezing, scattered coarse rhonchi noted with upper bronchial congestion. Faint crackles noted at the bases ABDOMEN: soft. Nontender on exam. Thin non-distended, normoactive bowel sounds. No palpable organomegaly. MUSCULOSKELETAL: No joint swelling or deformity. EXTREMITIES: No cyanosis, clubbing, or pedal edema. Bilateral upper extremities edematous although significantly improved NEUROLOGICAL: Gross neurological examination did not reveal any focal deficits. Diffusely weak SKIN: No rashes. Extremely pale Assessment: Cardiac arrest, possibly secondary to ventricular tachycardia secondary to multiple electrolyte abnormalities Respiratory arrest with cardiac arrest requiring mechanical ventilation 01/01/2025 likely secondary to V. tach Severe hypokalemia, hypomagnesemia, hypocalcemia, improving after replacement, continue to monitor closely History of EtOH Candidal pneumonia from the sputum, maintained on Eraxis and to complete the course while here, 3 doses left today Nonischemic cardiomyopathy possible Takotsubo, EF was 20 to 25%, repeat is 30- 35, continued on LifeVest Possible acute colitis as noted on imaging Continued ongoing diarrhea, C. difficile was negative likely secondary to tube feeds, being evaluated by speech for diet Diabetes mellitus, type II, uncontrolled with hyperglycemia History of pancreatitis Tachycardia Anemia, chronic, hemoglobin stable above 8 today Concerns of possible right lower lobe pneumonia on admission, possibly aspiration History of splenic vein thrombosis, was on Eliquis Hepatic encephalopathy Moderate protein calorie malnutrition with a BMI of 17.7 GI prophylaxis DVT prophylaxis Full code Plan: Recommend to continue with current medications and management with multiple consultations following. Continue incentive spirometer use at least 10 times every hour while awake. Patient is maintained on room air currently Patient had respiratory arrest with cardiac arrest on 01/01/2025 and was placed on mechanical ventilation. Pressor supports discontinued and being weaned off mech vent 01/09 infectious disease following as white count remains elevated although is trending down and maintained on Eraxis. Will need to discuss further with inf ectious disease regarding discharge planning if patient will require IV antibiotics on discharge Cardiology following and patient is status post catheterization recommending maximizing medical management and case management following and has received LifeVest. Patient does currently have LifeVest on. Patient has transition to oral amiodarone Continue monitoring Accu-Cheks AC and at bedtime and adjust accordingly. Adjust insulins as needed as patient is tolerating more diet and eating and off tube feeds Follow-up on repeat labs and replace electrolytes per protocol. Replace potassium and magnesium per protocol Follow-up chest x-ray in the a.m. Will discuss with social work regarding discharge planning to [facility], patient will also require insurance authorization as discussed previously and patient will be completed with antibiotic therapy that is not covered by [facility] on 01/18/2025 Due to multiple complex medical issues, overall prognosis is extremely guarded Possible discharge planning early next week The impression and plan of care has been dictated by Ana Duggan, Nurse Practitioner as directed. Dr. Germain MD I have performed a history and examination and MDM of this patient, discussed the same with the dictator, and agree with the dictator's assessment and plan as written ,documented as a scribe. Based on total visit time, I have performed more than 50% of the visit. Objective - Vital Signs Vital signs: Vital Signs Temp 97.5 F L 01/15/25 19:59 Pulse 116 H 01/15/25 19:59 Resp 18 01/15/25 20:00 BP 115/68 01/15/25 19:59 Pulse Ox 100 01/15/25 19:59 FiO2 21 01/11/25 08:40 Intake & Output 01/15/25 01/15/25 01/16/25 06:59 18:59 06:59 Output Total 601 1400 1 Balance -601 -1400 -1 Weight 61.5 kg Output: Urine 600 1400 Stool 1 1 Other: Voiding Method Indwelling Catheter Indwelling Catheter Indwelling Catheter # Bowel Movements 1 ABP, PAP, CO, CI - Last Documented Arterial Blood Pressure 153/76 - Labs CBC & Chem 7: 01/15/25 07:49 01/15/25 07:49 Labs: Abnormal Lab Results - Last 24 Hours (Table) 01/15/25 01/15/25 Range/Units 07:49 07:49 WBC 14.62 H (4.50-10.00) 10*3/uL RBC 2.79 L (4.40-5.60) 10*6/uL Hgb 8.8 L (13.0-17.0) g/dL Hct 28.3 L (39.6-50.0) % MCV 101.4 H (80.0-97.0) fL MCHC 31.1 L (32.0-37.0) g/dL Plt Count 955 H (140-440) 10*3/uL Immature Gran # 0.22 H (0.00-0.04) 10*3/uL Neutrophils # 10.46 H (1.80-7.70) 10*3/uL Monocytes # 1.68 H (0.20-1.00) 10*3/uL Chloride 109 H (98-107) mmol/L Carbon Dioxide 18 L (22-30) mmol/L Creatinine 0.61 L (0.66-1.25) mg/dL Glucose 117 H (74-99) mg/dL Magnesium 1.2 L (1.6-2.3) mg/dL
[2025-01-16 07:24] LABS: Basophils # (A) 0.09 10*3/uL (0.00-0.10); Basophils % (A) 0.5 %; Eosinophils # (A) 0.40 10*3/uL (0.04-0.35); Eosinophils % (A) 2.3 %; HCT 30.6 % (39.6-50.0); HGB 9.4 g/dL (13.0-17.0); Lymphocytes # (A) 2.23 10*3/uL (0.90-5.00); Lymphocytes % (A) 13.0 %; MCH 30.7 pg (27.0-32.0); MCHC 30.7 g/dL (32.0-37.0); MCV 100.0 fL (80.0-97.0); Monocytes # (A) 1.60 10*3/uL (0.20-1.00); Monocytes % (A) 9.3 %; Neutrophils # (A) 12.69 10*3/uL (1.80-7.70); Neutrophils % (A) 74.1 %; RBC 3.06 10*6/uL (4.40-5.60); RDW 20.6 % (11.5-14.5); WBC 17.14 10*3/uL (4.50-10.00)
[2025-01-16 07:51] LABS: ALT 23 U/L (4-49); AST 39 U/L (17-59); African American GFR (CKD) >90 (>60 ml/min/1.73 sqM); Albumin 2.6 g/dL (3.5-5.0); Alkaline Phosphatase 348 U/L (38-126); Anion Gap 13 mmol/L; Blood Urea Nitrogen 7 mg/dL (9-20); Calcium 8.6 mg/dL (8.4-10.2); Carbon Dioxide 22 mmol/L (22-30); Chloride 105 mmol/L (98-107); Glucose 119 mg/dL (74-99); Magnesium 2.0 mg/dL (1.6-2.3); Non-African American GFR(CKD) >90 (>60 ml/min/1.73 sqM); Potassium 3.3 mmol/L (3.5-5.1); Sodium 140 mmol/L (137-145); Total Protein 5.5 g/dL (6.3-8.2)
--- NOTE | 2025-01-16 08:08 | XR ---
EXAMINATION TYPE: XR chest 1V portable DATE OF EXAM: 01/16/2025 7:19 AM COMPARISON: Chest radiograph from 01/10/2025 CLINICAL INDICATION: Male, 44 years old with history of Shortness of breath; [facility] TECHNIQUE: XR chest 1V portable Frontal view of the chest. FINDINGS: Lungs/Pleura: There is no evidence of pleural effusion, focal consolidation, or pneumothorax. Pulmonary vascularity: Pulmonary vascular congestion. Heart/mediastinum: Cardiomediastinal silhouette is prominent in size. Musculoskeletal: No acute osseous pathology. Other findings: Subcutaneous emphysema in the left chest wall Lines/Tubes: Interval removal of the endotracheal tube. Interval removal of the enteric tube, Right internal jugular central venous catheter with distal tip at the cavoatrial junction. IMPRESSION: Stable exam, mild pulmonary vascular congestion. Correlate with BNP for congestive heart failure. [facility], , 01/16/2025 8:06 AM
[2025-01-16 08:36] LABS: Platelet Count 1098 10*3/uL (140-440)
[2025-01-16] MEDS: MAGNESIUM OXIDE 400 MG TAB PO SCH (09:43)
[2025-01-16] MEDS: POTASSIUM CHLORIDE ER 20 MEQ TAB.ER PO STA (09:43)
[2025-01-16] MEDS: NYSTATIN 100,000 UNIT/ML SUSP 500,000 UNIT/5 ML CUP PO SCH (09:44)
--- NOTE | 2025-01-16 14:54 | P.PN ---
Subjective Progress Note Date: 01/16/25 This is a pleasant 44-year-old male who was recently admitted after brief cardiac arrest with multiple electrolyte abnormalities being closely monitored. Patient being followed by cardiology and is status post cardiac catheterization recommending maximizing medical management and normal coronary arteries noted. Patient reports to having increasing pain and also generalized weakness although reports will be going home on discharge. Patient did have an elevated white count that had been trending down although is slightly up today with infectious disease following and will repeat CT abdomen for further evaluation. Continue current antibiotics at this time. Case management is following as plan is for LifeVest on discharge. Recommend incentive spirometer as patient is requiring oxygen and may require oxygen on discharge. Will reattempt home oxygen evaluation. Encourage increase activity as tolerated with sitting up out of the bed more frequently. Labs reviewed and white count is 25.52, hemoglobin is 8.8, platelets 446, sodium 137 with a potassium of 3.5, BUN is 5 and creatinine 0.33. Calcium is slightly low at 6.2, total bili is 1.4. 12/31/2024 Patient is seen in follow-up with multiple consultations following. White count was elevated although slightly improving with infectious disease following we will continue current regimen at this time. Patient continues to report short ness of breath and generalized pain and continues to require oxygen. Will need home O2 assessment. Patient underwent CT abdomen and will consult general surgery for evaluation. Encouraged increased activity as tolerated with sitting up more frequently in the chair. 01/01/2025 Patient seen and evaluated this morning currently scheduled to undergo HIDA scan per general surgery and patient is currently requesting increase in pain medications as she reports diffuse pain. Pain medications through the IV are currently on hold as patient will be undergoing HIDA scan. Patient's white count is elevated with infectious disease following maintained on Zosyn and will continue. Patient is afebrile with no reports of chest pain or palpitations. Patient is reporting some congestion and occasional shortness of breath. Will order chest x-ray as well. Continue DuoNeb treatments and supplemental oxygen as needed. Patient currently maintained on 5 L. Would recommend PT/OT therapy evaluation as patient has had prolonged cough elevation and appears frail and extremely weak. 01/02/2025 Patient is seen in follow-up was a CODE BLUE on 3 S. and was transferred to ICU intubated for respiratory arrest with cardiac arrest and ROSC received. Patient remains a full code per sister and will continue on mechanical ventilation with an FiO2 of 100% and PEEP of 10 currently. Blood pressures are soft and patient is maintained on pressor support and hemoglobin was noted to be 6.9 this morning and will give 1 unit of PRBC. White count remains elevated at 24.18 and maintained on antibiotics with infectious disease following. Sodium is 141 with a potassium of 3.0, creatinine 0.48, blood sugars elevated, lactic acid 5.1 with a calcium that is low at 5.6, magnesium 1.2. Prognosis remains extremely guarded and CODE STATUS needs to be addressed again. 01/03/2025 Patient is seen in follow-up in the ICU maintained on mechanical ventilation and FiO2 was adjusted per pulmonary flour mixer but FiO2 is currently 60%. Patient maintained on pressor support including Levophed and vasopressin and also receiving Lasix. Blood sugars have been elevated and will adjust insulins accordingly including increasing long-acting. Patient is continued on tube feeds and will continue at this time. Per nursing staff patient did require Chris hugger for some time for hypothermia. Hemoglobin is stable at 8.3 status post 1 unit of PRBC, white count remains elevated at 19.68, sodium is 134 and potassium was again 2.9 with replacement of 3.5 and continued on protocol creatinine is stable at 0.63. Preliminary sputum culture from 12/31/2024 showing yeast species. 01/04/2025 Patient is seen in follow-up continues to be in the ICU on mechanical ventilation with multiple consultations following. FiO2 is 60% and patient is continued on low-dose pressor and support, Levophed has been discontinued and p atient has been weaned off fentanyl and patient is not on Versed at this time. Patient continues on sedation with propofol and per nursing staff will undergo sedation trials to assess mentation. Patient is continued on antibiotics and will continue with infectious disease following. Blood sugars have been on the lower side and tube feedings have been started and tolerating thus far working on goal and will discontinue long-acting insulin and monitor closely with just Accu-Cheks and sliding scale for now. Prognosis remains extremely guarded and patient remains full code per family at this time. White count remains elevated at 23.15, hemoglobin is stable at 9.0 with no active bleeding noted, platelets are 319, sodium is 134 with a potassium of 3.8, BUN is 5 and creatinine is 0.79. Magnesium is 1.6 and receiving replacement. 01/05/2025 Patient is seen in follow-up today maintained on mechanical ventilation with no plans of weaning today continues on low-dose Levophed and other pressor support being weaned. Per nursing staff patient's blood pressures were extremely low overnight requiring reinitiation of the Levophed which is currently being weaned as tolerated. Patient is maintained on mechanical ventilation with an FiO2 of 40% PEEP is at 10. Patient remains full code and will attempt to contact family to discuss treatment plan and overall prognosis. Patient continues with Pleurx catheter in the left chest wall with no leak noted recommending to continue for another 24 hours as there was a noted tiny pneumothorax on the left on imaging. Per nursing staff patient is experiencing a mild rectal prolapse and would recommend keeping the area moist and lubricated as much as possible. Patient continues to have loose stools and is maintained on antibiotics with infectious disease following. 01/06/2025 Patient is seen in follow-up continues in the ICU on mechanical ventilation with an FiO2 of 40% PEEP is being adjusted to 6 per pulmonary flour mixer cleared no plans of weaning at this time recommending initiating small sedation trials to assess mentation. Patient has been weaned off pressor support with medications being adjusted and cardiology following. Patient continues with Thora vent on the left and per flour mixer will be capped with possible removal in the next 24 hours as chest x-ray reveals a tiny pneumothorax that is stable. Patient continues on IV Lasix and will continue as patient is extremely edematous in upper and lower extremities. Patient continues on IV antibiotics in the form of Zosyn and Flagyl and also Diflucan and will continue with infectious disease following. Repeat cultures are pending at this time and patient remains afeb rile. 01/07/2025 Patient is seen in follow-up continues on mechanical ventilation with an FiO2 of 40% and PEEP of 6. Per nursing staff patient did become more hypotensive and tachycardic requiring Levophed to be resumed and currently on hold as blood pressures have improved and will continue to wean as tolerated. Patient continues with significant volume overload and is maintained on IV Lasix daily. Patient continues to have an elevated white count with worsening and also having increased fevers with infectious disease following and will add daptomycin and repeat cultures. Patient remains sedated at this time with no plans of weaning. Pulmonary flour mixer following closely. Thora vent on the left is being removed and will follow-up with repeat chest x-rays. 01/08/2025 Patient seen in follow-up continues to be on mechanical ventilation with no vent changes today maintained on FiO2 of 40% and PEEP of 6. Per nursing staff patient underwent sedation holiday this morning although breathing rapidly with respirations of 30 to 40/min and was placed back on propofol. Discussion of we aning propofol and attempting Precedex with sedation holidays. Patient is off pressor support at this time and will monitor closely. White count is elevated at 33 and having low-grade temps maintained on daptomycin and Zosyn with infectious disease following closely. Per nursing staff patient is having multiple episodes of loose stools most likely secondary to tube feeds. C. difficile has been negative and will add as needed Imodium. WBC is 33.42, hemoglobin 8.6, platelets are 280, potassium was 3.3 and replaced and follow-up is 4.4, sodium is 141, BUN is 27 with a creatinine of 1.11. Blood sugars being monitored closely and will adjust accordingly 01/09/2025 Patient is seen in follow-up today currently awake and off sedation still requiring some Precedex as patient is extremely anxious and attempting to pull at tubing. Plan is for possible extubation today and has been tolerating weaning trials. Patient is afebrile continues with occasional low-grade fever maintained on antibiotics infectious disease following closely. White count is above 30 and patient will be started on Eraxis per ID recommendations. Recommend repeat labs. Patient is off pressor support currently and cardiology following closely. Patient continues with LifeVest at this time. Patient continues with loose stools and C. difficile testing has been negative. Continue Imodium as needed. 01/12/2025 Patient is seen in follow-up today currently on stepdown out of the ICU maintained on 2 L via nasal cannula and weaning FiO2 as tolerated. Patient with significant weakness with case management/social work following working on discharge planning to [facility]. Patient continues to report significant amount of pain and medications are being adjusted. Recommend PT/OT therapy daily. Patient is afebrile with no reports of chest pain or palpitations. Patient does continue with LifeVest at this time with cardiology following. 01/13/2025 Patient is seen in follow-up today maintained on Eraxis and discussed with infectious disease as patient will require more days to complete the treatment. Unfortunately ECF will not accept the patient while on this medication due to cost pleat treatment prior to discharging. Patient is afebrile with no reports of chest pain or palpitations. Patient is reporting continued generalized weakness and bodyaches white blood count is trending down and patient is afebr ile. Will continue to monitor and follow-up on repeat labs. Case management is following and working with [facility] liaison be submitting for insurance authorization soon. Patient to complete antibiotic therapy to therapy daily. Potassium is low today at 2.9 and will be replaced per protocol. Magnesium is 1.7. 01/14/2025 Patient is seen in follow-up today reports to feeling improved although continues with significant weakness. Patient reports is tolerating diet and attempting to eat more. White count is trending down and patient is maintained on Eraxis with infectious disease following. Recommend to continue to complete the course and will need 3 more days of Eraxis prior to going to ECF. Plan is for [facility] once patient is stable and has completed Eraxis course. Patient is afebrile denies any worsening shortness of breath and denies chest pain. Patient does continue with LifeVest at this time. Would recommend PT/OT therapy daily and monitoring closely for any signs of aspiration. 01/15/2025 Patient is seen in follow-up today clinically improving and reports is working with physical therapy although significantly weak and will be going to ECF on discharge if insurance authorization is obtained. Authorization being submitted and pending at this time although [facility] unable to accommodate if patient is maintained on Eraxis. Infectious disease following and will discuss further regarding discharge planning. Authorization remains pending and unsure if patient will discharge given the January holiday is coming up and insurance companies are closed on this day. Will likely discharge on Sunday. Encouraged increase activity as tolerated and recommend getting up and sitting in the chair more frequently with all meals. Will follow-up on chest x-ray in the a.m. along with repeat labs. 01/16/2025 Patient is seen in follow-up today with no acute overnight issues noted. White count is trending up and nystatin being added per infectious disease and patient is maintained on Eraxis which will be discontinued likely to complete the course. Patient with significant weakness is planning on going to ECF on discharge and has been accepted by [facility] pending insurance authorization. Given the holiday today there is no case management staff available to verify insurance authorization and no staffing available at [facility] to accommodate the bed. Patient to continue with LifeVest and strongly recommend PT/OT therapy daily. Encouraged oral intake, continuing to monitor electrolytes closely. Replace magnesium potassium today and will add daily supplementation. Follow-up on labs in the a.m. Review of systems: Constitutional: No reports of fatigue, fever, or chills Cardiovascular: No reports of chest pain or palpitations Respiratory: No reports of worsening shortness of breath or cough GI: No reports of nausea, vomiting, or diarrhea, reports to tolerating diet and eating more : No reports of dysuria or retention Neurovascular: reports of weakness and difficulty ambulating, reports generalized pain although feels somewhat improved PHYSICAL EXAMINATION: GENERAL: The patient is alert and oriented x3, well developed, elderly appearing, thin built, cachectic, chronically ill-appearing, pale HEENT: Pupils are round and equally reacting to light. EOMI. no scleral icterus. No conjunctival pallor. Normocephalic, atraumatic. No pharyngeal erythema. No thyromegaly. CARDIOVASCULAR: S1 and S2 muffled PULMONARY: diminished breath sounds bilaterally with no wheezing, scattered coarse rhonchi noted with upper bronchial congestion. Faint crackles noted at the bases ABDOMEN: soft. Nontender on exam. Thin non-distended, normoactive bowel sounds. No palpable organomegaly. MUSCULOSKELETAL: No joint swelling or deformity. EXTREMITIES: No cyanosis, clubbing, or pedal edema. Bilateral upper extremities edematous although significantly improved NEUROLOGICAL: Gross neurological examination did not reveal any focal deficits. Diffusely weak SKIN: No rashes. Extremely pale Assessment: Cardiac arrest, possibly secondary to ventricular tachycardia secondary to multiple electrolyte abnormalities Respiratory arrest with cardiac arrest requiring mechanical ventilation 01/01/2025 likely secondary to V. tach Severe hypokalemia, hypomagnesemia, ongoing, improving after replacement, continue to monitor closely, replace per protocol and daily supplementation being added History of EtOH Candidal pneumonia from the sputum, maintained on Eraxis and to complete the course while here, 1 doses left today, being transition to nystatin per infectious disease Nonischemic cardiomyopathy possible Takotsubo, EF was 20 to 25%, repeat is 30-3 5, continued on LifeVest Possible acute colitis as noted on imaging, improved diarrhea, C. difficile was negative likely secondary to tube feeds, resolved Diabetes mellitus, type II, uncontrolled with hyperglycemia History of pancreatitis Tachycardia Anemia, chronic, hemoglobin stable above 8 today Concerns of possible right lower lobe pneumonia on admission, possibly aspiration History of splenic vein thrombosis, was on Eliquis Hepatic encephalopathy Moderate protein calorie malnutrition with a BMI of 17.7 GI prophylaxis DVT prophylaxis Full code Plan: Recommend to continue with current medications and management with multiple consultations following. Continue incentive spirometer use at least 10 times every hour while awake. Patient is maintained on room air currently Patient had respiratory arrest with cardiac arrest on 01/01/2025 and was placed on mechanical ventilation. Pressor supports discontinued and being weaned off mech vent 01/09 infectious disease following as white count remains elevated and maintained on Eraxis. Eraxis will be completed and patient to continue on nystatin swish and swallow per ID recommendations Cardiology following and patient is status post catheterization recommending maximizing medical management and case management following and has received LifeVest. Patient does currently have LifeVest on. Patient has transition to oral amiodarone Continue monitoring Accu-Cheks AC and at bedtime and adjust accordingly. Adjust insulins as needed as patient is tolerating more diet and eating and off tube feeds Follow-up on repeat labs and replace electrolytes per protocol. Replace potassium and magnesium per protocol Will discuss with social work regarding discharge planning to ECF, patient will also require insurance authorization which remains pending at this time and given the holiday, patient will likely not discharge until at least 01/19/2025 Due to multiple complex medical issues, overall prognosis is extremely guarded Possible discharge planning early next week The impression and plan of care has been dictated by Ana Duggan, Nurse Practitioner as directed. Dr. Germain MD I have performed a history and examination and MDM of this patient, discussed the same with the dictator, and agree with the dictator's assessment and plan as written ,documented as a scribe. Based on total visit time, I have performed more than 50% of the visit. Objective - Vital Signs Vital signs: Vital Signs Temp 97.6 F 01/16/25 12:05 Pulse 104 H 01/16/25 12:05 Resp 16 01/16/25 12:05 BP 127/83 01/16/25 12:05 Pulse Ox 95 07/04/25 12:05 FiO2 21 01/11/25 08:40 Intake & Output 01/15/25 01/16/25 01/16/25 18:59 06:59 18:59 Output Total 1400 2 Balance -1400 -2 Weight 61.5 kg 61 kg Output: Urine 1400 Stool 2 Other: Voiding Method Indwelling Catheter Indwelling Catheter Indwelling Catheter # Bowel Movements 1 ABP, PAP, CO, CI - Last Documented Arterial Blood Pressure 153/76 - Labs CBC & Chem 7: 01/16/25 06:40 01/16/25 06:40 Labs: Abnormal Lab Results - Last 24 Hours (Table) 01/16/25 01/16/25 Range/Units 06:40 06:40 WBC 17.14 H (4.50-10.00) 10*3/uL RBC 3.06 L (4.40-5.60) 10*6/uL Hgb 9.4 L (13.0-17.0) g/dL Hct 30.6 L (39.6-50.0) % MCV 100.0 H (80.0-97.0) fL MCHC 30.7 L (32.0-37.0) g/dL Plt Count 1098 H* (140-440) 10*3/uL Immature Gran # 0.13 H (0.00-0.04) 10*3/uL Neutrophils # 12.69 H (1.80-7.70) 10*3/uL Monocytes # 1.60 H (0.20-1.00) 10*3/uL Eosinophils # 0.40 H (0.04-0.35) 10*3/uL Potassium 3.3 L (3.5-5.1) mmol/L BUN 7 L (9-20) mg/dL Creatinine 0.53 L (0.66-1.25) mg/dL Glucose 119 H (74-99) mg/dL Alkaline Phosphatase 348 H (38-126) U/L Total Protein 5.5 L (6.3-8.2) g/dL Albumin 2.6 L (3.5-5.0) g/dL
--- NOTE | 2025-01-16 22:59 | P.PN ---
Subjective Progress Note Date: 01/16/25 Principal diagnosis: Reason for follow-up is pneumonia/colitis Patient is a 44-year-old male with a past medical history significant for CVA TIA reflux history of recurrent/chronic pancreatitis from alcoholism and hypertension patient was brought into the hospital for lethargy seizure activity did have a cardiac arrest/V. tach requiring shock and subsequent admitted to the hospital.Patient did have a cardiac arrest last night patient is status post resuscitation intubation and transfer the ICU also have a right-sided pneumothorax. On today's visit that is 01/16/2025, the patient continues to be afebrile, the patient is on room air and breathing comfortably, the Pt denies having any worsening central chest pain or cough, the patient denies having any abdominal pain no vomiting or any diarrhea has been reported by the nursing staff. Patient white count slightly up to 17.14 and also noted to have elevated platelet count of 1098 creatinine 0.53 Objective - Vital Signs Vital signs: Vital Signs Temp 97.5 F L 01/16/25 15:07 Pulse 103 H 01/16/25 15:07 Resp 16 01/16/25 15:07 BP 125/89 01/16/25 15:07 Pulse Ox 97 01/16/25 15:07 FiO2 21 01/11/25 08:40 Intake & Output 01/15/25 01/16/25 01/16/25 18:59 06:59 18:59 Output Total 1400 2 Balance -1400 -2 Weight 61.5 kg 61 kg Output: Urine 1400 Stool 2 Other: Voiding Method Indwelling Catheter Indwelling Catheter Indwelling Catheter # Bowel Movements 1 ABP, PAP, CO, CI - Last Documented Arterial Blood Pressure 153/76 - Exam GENERAL DESCRIPTION: Middle-age male lying in bed in no distress RESPIRATORY SYSTEM: Unlabored breathing , decreased breath sounds at bases HEART: S1 S2 regular rate and rhythm , ABDOMEN: Soft , no tenderness EXTREMITIES: No edema feet - Labs CBC & Chem 7: 01/16/25 06:40 01/16/25 06:40 Labs: Abnormal Lab Results - Last 24 Hours (Table) 01/16/25 01/16/25 Range/Units 06:40 06:40 WBC 17.14 H (4.50-10.00) 10*3/uL RBC 3.06 L (4.40-5.60) 10*6/uL Hgb 9.4 L (13.0-17.0) g/dL Hct 30.6 L (39.6-50.0) % MCV 100.0 H (80.0-97.0) fL MCHC 30.7 L (32.0-37.0) g/dL Plt Count 1098 H* (140-440) 10*3/uL Immature Gran # 0.13 H (0.00-0.04) 10*3/uL Neutrophils # 12.69 H (1.80-7.70) 10*3/uL Monocytes # 1.60 H (0.20-1.00) 10*3/uL Eosinophils # 0.40 H (0.04-0.35) 10*3/uL Potassium 3.3 L (3.5-5.1) mmol/L BUN 7 L (9-20) mg/dL Creatinine 0.53 L (0.66-1.25) mg/dL Glucose 119 H (74-99) mg/dL Alkaline Phosphatase 348 H (38-126) U/L Total Protein 5.5 L (6.3-8.2) g/dL Albumin 2.6 L (3.5-5.0) g/dL Assessment and Plan (1) Aspiration pneumonitis Current Visit: Yes Status: Acute Code(s): J69.0 - PNEUMONITIS DUE TO INHALATION OF FOOD AND VOMIT SNOMED Code(s): 134144274 (2) Colitis Current Visit: Yes Status: Acute Code(s): K52.9 - NONINFECTIVE GASTROENTERITIS AND COLITIS, UNSPECIFIED SNOMED Code(s): 80210668 (3) Cholecystitis Current Visit: Yes Status: Acute Code(s): K81.9 - CHOLECYSTITIS, UNSPECIFIED SNOMED Code(s): 86457602 (4) Oropharyngeal candidiasis Current Visit: Yes Status: Acute Code(s): B37.0 - CANDIDAL STOMATITIS SNOMED Code(s): 88043936 Plan: 1patient presented to hospital with sepsis in this patient who did have tachycardia hypotension elevated white count meeting criteria for SIRS source likely aspiration pneumonitis as the patient did have intractable nausea vomiting before the patient has been brought to the hospital patient also have abnormality on the abdominal pelvis CT concerning for colitis question of infectious etiology need to be ruled out patient did not recall if he has been on antibiotic in the recent past 2-sputum cultures collected on 12/31/2024 reported as yeast, Angelica glabrata 3-patient CT as well as ultrasound has been suspicious for cholecystitis HIDA scan has been suspicious for chronic cholecystitis General Surgery following the patient 4patient did have a cardiac arrest, patient was resuscitated and intubated in the ICU, patient did have a negative MRSA nasal screen repeat cultures so far negative 5patient did have resolution of his fever and white count down initially however noticed to have worsening of the white count and also noticed to have a worsening thrombocytosis concerning for possible intra-abdominal source , we will request for repeat CT abdominal pelvis and for now continue with oral Augmentin and Eraxis day #8 prognosis guarded Dictation was produced using [employer] dictation software. please excuse any grammatical, word or spelling errors.
[2025-01-17 07:23] LABS: Basophils # (A) 0.11 10*3/uL (0.00-0.10); Basophils % (A) 0.5 %; Eosinophils # (A) 0.30 10*3/uL (0.04-0.35); Eosinophils % (A) 1.3 %; HCT 30.3 % (39.6-50.0); HGB 9.3 g/dL (13.0-17.0); Immature Platelet Fraction 2.7 % (1.1-6.1); Lymphocytes # (A) 2.50 10*3/uL (0.90-5.00); Lymphocytes % (A) 10.8 %; MCH 30.4 pg (27.0-32.0); MCHC 30.7 g/dL (32.0-37.0); MCV 99.0 fL (80.0-97.0); Monocytes # (A) 1.98 10*3/uL (0.20-1.00); Monocytes % (A) 8.6 %; Neutrophils # (A) 18.04 10*3/uL (1.80-7.70); Neutrophils % (A) 78.2 %; RBC 3.06 10*6/uL (4.40-5.60); RDW 20.5 % (11.5-14.5); WBC 23.08 10*3/uL (4.50-10.00)
[2025-01-17 07:47] LABS: ALT 22 U/L (4-49); AST 53 U/L (17-59); African American GFR (CKD) >90 (>60 ml/min/1.73 sqM); Albumin 2.4 g/dL (3.5-5.0); Alkaline Phosphatase 283 U/L (38-126); Anion Gap 14 mmol/L; Blood Urea Nitrogen 5 mg/dL (9-20); Calcium 8.4 mg/dL (8.4-10.2); Carbon Dioxide 20 mmol/L (22-30); Chloride 103 mmol/L (98-107); Glucose 103 mg/dL (74-99); Non-African American GFR(CKD) >90 (>60 ml/min/1.73 sqM); Potassium 4.1 mmol/L (3.5-5.1); Sodium 137 mmol/L (137-145); Total Protein 5.3 g/dL (6.3-8.2)
[2025-01-17 07:54] LABS: Platelet Count 1139 10*3/uL (140-440)
[2025-01-17] MEDS: IOPAMIDOL CONTRAST (ORAL USE) VIAL PO PRN (08:08)
[2025-01-17] MEDS: POTASSIUM CHLORIDE ER 20 MEQ TAB.ER PO SCH (08:09)
--- NOTE | 2025-01-17 10:15 | CT ---
EXAMINATION TYPE: CT abdomen pelvis w con DATE OF EXAM: 01/17/2025 9:45 AM COMPARISON: 12/30/2024 CLINICAL INDICATION: Male, 44 years old with history of Abdominal pain leukocytosis; Abdominal pain l eukocytosis TECHNIQUE: Axial CT abdomen pelvis w con;Sagittal and coronal reformats were created on a separate w orkstation. Contrast used:80ml mL of Isovue 300 with IV Contrast, (none if empty) Oral contrast used: with Oral Contrast (none if empty) CT DLP: 543.5 mGycm, Automated exposure control for dose reduction was used. FINDINGS: LOWER CHEST: Moderate right and small left pleural effusions with associated atelectasis left lung. ABDOMEN LIVER: Diffusely hypoattenuating parenchyma. GALLBLADDER AND BILE DUCTS: Unremarkable. PANCREAS: Scattered consolidation throughout the pancreatic parenchyma. No ductal dilation. SPLEEN: Unremarkable. ADRENAL GLANDS: Unremarkable. KIDNEYS AND URETERS: No evidence of hydronephrosis or obstructing renal calculus. The ureters are unr emarkable. PELVIS BLADDER: Nondistended with Kellogg catheter in place. REPRODUCTIVE: Unremarkable. ABDOMEN & PELVIS STOMACH AND BOWEL: No evidence of bowel obstruction. Gastric rugae thickening with hyperemia of the m ucosa gastric lumen are markedly thickened with hyperemia. No evidence for wall thickening. Oral cont rast extends throughout the colon and small bowel. PERITONEUM/RETROPERITONEUM: No evidence of pneumoperitoneum. Trace free fluid in the abdomen.. VASCULATURE: No evidence of aortic aneurysm. MUSCULOSKELETAL: No acute osseous abnormalities LYMPH NODES: No gross evidence for lymphadenopathy. SOFT TISSUE/ABDOMINAL WALL: Unremarkable IMPRESSION: 1. Markedly thickened rugae of the stomach correlate for gastritis. If not recently performed consid er upper endoscopy for evaluation. 2. Chronic pancreatitis changes. 3. Moderate left and small right pleural effusions with associated atelectasis. 4. Kellogg catheter in appropriate position. 5. Hepatic steatosis. 6. Trace free fluid throughout the abdomen. [facility], , 01/17/2025 10:12 AM
--- NOTE | 2025-01-17 16:01 | P.PN ---
Subjective Progress Note Date: 01/17/25 Principal diagnosis: Reason for follow-up is pneumonia/colitis Patient is a 44-year-old male with a past medical history significant for CVA TIA reflux history of recurrent/chronic pancreatitis from alcoholism and hypertension patient was brought into the hospital for lethargy seizure activity did have a cardiac arrest/V. tach requiring shock and subsequent admitted to the hospital.Patient did have a cardiac arrest last night patient is status post resuscitation intubation and transfer the ICU also have a right-sided pneumothorax. On today's visit that is 01/18/2024, patient did have a temperature of 97.5 F this afternoon patient is sleepy though arousable he is breathing comfortably room air mention overall doing better no new symptoms. Per discussion with the patient nurse he did have diarrhea Patient white count is up to 23.08 creatinine 0.[address] abdominal pelvis mention markedly thickened rugal of the stomach chronic pancreatitis changes did not mention any pseudocyst. Objective - Vital Signs Vital signs: Vital Signs Temp 97.5 F L 01/17/25 15:11 Pulse 109 H 01/17/25 15:11 Resp 16 01/17/25 15:11 BP 131/93 01/17/25 15:11 Pulse Ox 96 01/17/25 15:11 FiO2 21 01/11/25 08:40 Intake & Output 01/16/25 01/17/25 01/17/25 18:59 06:59 18:59 Output Total 775 325 725 Balance -451 -325 -075 Output: Urine 775 325 725 Other: Voiding Method Indwelling Catheter Indwelling Catheter Indwelling Catheter ABP, PAP, CO, CI - Last Documented Arterial Blood Pressure 153/76 - Exam GENERAL DESCRIPTION: Middle-age male lying in bed in no distress RESPIRATORY SYSTEM: Unlabored breathing , decreased breath sounds at bases HEART: S1 S2 regular rate and rhythm , ABDOMEN: Soft , no tenderness EXTREMITIES: No edema feet - Labs CBC & Chem 7: 01/17/25 06:52 01/17/25 06:52 Labs: Abnormal Lab Results - Last 24 Hours (Table) 01/17/25 01/17/25 Range/Units 06:52 06:52 WBC 23.08 H (4.50-10.00) 10*3/uL RBC 3.06 L (4.40-5.60) 10*6/uL Hgb 9.3 L (13.0-17.0) g/dL Hct 30.3 L (39.6-50.0) % MCV 99.0 H (80.0-97.0) fL MCHC 30.7 L (32.0-37.0) g/dL Plt Count 1139 H* (140-440) 10*3/uL Immature Gran # 0.15 H (0.00-0.04) 10*3/uL Neutrophils # 18.04 H (1.80-7.70) 10*3/uL Monocytes # 1.98 H (0.20-1.00) 10*3/uL Basophils # 0.11 H (0.00-0.10) 10*3/uL Carbon Dioxide 20 L (22-30) mmol/L BUN 5 L (9-20) mg/dL Creatinine 0.43 L (0.66-1.25) mg/dL Glucose 103 H (74-99) mg/dL Alkaline Phosphatase 283 H (38-126) U/L C-Reactive Protein 2.3 H (<1.0) mg/dL Total Protein 5.3 L (6.3-8.2) g/dL Albumin 2.4 L (3.5-5.0) g/dL Assessment and Plan (1) Aspiration pneumonitis Current Visit: Yes Status: Acute Code(s): J69.0 - PNEUMONITIS DUE TO INHALATION OF FOOD AND VOMIT SNOMED Code(s): 990777846 (2) Colitis Current Visit: Yes Status: Acute Code(s): K52.9 - NONINFECTIVE GASTROENTERITIS AND COLITIS, UNSPECIFIED SNOMED Code(s): 39433969 (3) Cholecystitis Current Visit: Yes Status: Acute Code(s): K81.9 - CHOLECYSTITIS, UNSPECIFIED SNOMED Code(s): 68078841 (4) Oropharyngeal candidiasis Current Visit: Yes Status: Acute Code(s): B37.0 - CANDIDAL STOMATITIS SNOMED Code(s): 07278411 Plan: 1patient presented to hospital with sepsis in this patient who did have tachycardia hypotension elevated white count meeting criteria for SIRS source likely aspiration pneumonitis as the patient did have intractable nausea vomiting before the patient has been brought to the hospital patient also have abnormality on the abdominal pelvis CT concerning for colitis question of infectious etiology need to be ruled out patient did not recall if he has been on antibiotic in the recent past 2-sputum cultures collected on 12/31/2024 reported as yeast, Angelica glabrata 3-patient CT as well as ultrasound has been suspicious for cholecystitis HIDA scan has been suspicious for chronic cholecystitis General Surgery following the patient 4patient did have a cardiac arrest, patient was resuscitated and intubated in the ICU, patient did have a negative MRSA nasal screen repeat cultures so far negative 5patient did have worsening of the white count for the patient did have a CT abdominal pelvis did show some thickening of the gastric wall, pancreatitis no pseudocyst no colitis patient no further worsening of the white count and started having diarrhea concerning for possible C. difficile will check stool for C. difficile and create oral vancomycin discontinue Augmentin Dictation was produced using [employer] dictation software. please excuse any grammatical, word or spelling errors. Time with Patient: Less than 30
[2025-01-17] MEDS: VANCOMYCIN 125 MG CAPSULE PO SCH (18:26)
--- NOTE | 2025-01-17 18:57 | P.PN ---
Subjective Progress Note Date: 01/17/25 This is a pleasant 44-year-old male who was recently admitted after brief cardiac arrest with multiple electrolyte abnormalities being closely monitored. Patient being followed by cardiology and is status post cardiac catheterization recommending maximizing medical management and normal coronary arteries noted. Patient reports to having increasing pain and also generalized weakness although reports will be going home on discharge. Patient did have an elevated white count that had been trending down although is slightly up today with infectious disease following and will repeat CT abdomen for further evaluation. Continue current antibiotics at this time. Case management is following as plan is for LifeVest on discharge. Recommend incentive spirometer as patient is requiring oxygen and may require oxygen on discharge. Will reattempt home oxygen evaluation. Encourage increase activity as tolerated with sitting up out of the bed more frequently. Labs reviewed and white count is 25.52, hemoglobin is 8.8, platelets 446, sodium 137 with a potassium of 3.5, BUN is 5 and creatinine 0.33. Calcium is slightly low at 6.2, total bili is 1.4. 12/31/2024 Patient is seen in follow-up with multiple consultations following. White count was elevated although slightly improving with infectious disease following we will continue current regimen at this time. Patient continues to report shortn ess of breath and generalized pain and continues to require oxygen. Will need home O2 assessment. Patient underwent CT abdomen and will consult general surgery for evaluation. Encouraged increased activity as tolerated with sitting up more frequently in the chair. 01/01/2025 Patient seen and evaluated this morning currently scheduled to undergo HIDA scan per general surgery and patient is currently requesting increase in pain medications as she reports diffuse pain. Pain medications through the IV are currently on hold as patient will be undergoing HIDA scan. Patient's white count is elevated with infectious disease following maintained on Zosyn and will continue. Patient is afebrile with no reports of chest pain or palpitations. Patient is reporting some congestion and occasional shortness of breath. Will order chest x-ray as well. Continue DuoNeb treatments and supplemental oxygen as needed. Patient currently maintained on 5 L. Would recommend PT/OT therapy evaluation as patient has had prolonged cough elevation and appears frail and extremely weak. 01/02/2025 Patient is seen in follow-up was a CODE BLUE on 3 S. and was transferred to ICU intubated for respiratory arrest with cardiac arrest and ROSC received. Patient remains a full code per sister and will continue on mechanical ventilation with an FiO2 of 100% and PEEP of 10 currently. Blood pressures are soft and patient is maintained on pressor support and hemoglobin was noted to be 6.9 this morning and will give 1 unit of PRBC. White count remains elevated at 24.18 and maintained on antibiotics with infectious disease following. Sodium is 141 with a potassium of 3.0, creatinine 0.48, blood sugars elevated, lactic acid 5.1 with a calcium that is low at 5.6, magnesium 1.2. Prognosis remains extremely guarded and CODE STATUS needs to be addressed again. 01/03/2025 Patient is seen in follow-up in the ICU maintained on mechanical ventilation and FiO2 was adjusted per pulmonary director home but FiO2 is currently 60%. Patient maintained on pressor support including Levophed and vasopressin and also receiving Lasix. Blood sugars have been elevated and will adjust insulins accordingly including increasing long-acting. Patient is continued on tube feeds and will continue at this time. Per nursing staff patient did require Chris hugger for some time for hypothermia. Hemoglobin is stable at 8.3 status post 1 unit of PRBC, white count remains elevated at 19.68, sodium is 134 and potassium was again 2.9 with replacement of 3.5 and continued on protocol creatinine is stable at 0.63. Preliminary sputum culture from 12/31/2024 showing yeast species. 01/04/2025 Patient is seen in follow-up continues to be in the ICU on mechanical ventilation with multiple consultations following. FiO2 is 60% and patient is continued on low-dose pressor and support, Levophed has been discontinued and logan todd has been weaned off fentanyl and patient is not on Versed at this time. Patient continues on sedation with propofol and per nursing staff will undergo sedation trials to assess mentation. Patient is continued on antibiotics and will continue with infectious disease following. Blood sugars have been on the lower side and tube feedings have been started and tolerating thus far working on goal and will discontinue long-acting insulin and monitor closely with just Accu-Cheks and sliding scale for now. Prognosis remains extremely guarded and patient remains full code per family at this time. White count remains elevated at 23.15, hemoglobin is stable at 9.0 with no active bleeding noted, platelets are 319, sodium is 134 with a potassium of 3.8, BUN is 5 and creatinine is 0.79. Magnesium is 1.6 and receiving replacement. 01/05/2025 Patient is seen in follow-up today maintained on mechanical ventilation with no plans of weaning today continues on low-dose Levophed and other pressor support being weaned. Per nursing staff patient's blood pressures were extremely low overnight requiring reinitiation of the Levophed which is currently being weaned as tolerated. Patient is maintained on mechanical ventilation with an FiO2 of 40% PEEP is at 10. Patient remains full code and will attempt to contact family to discuss treatment plan and overall prognosis. Patient continues with Pleurx catheter in the left chest wall with no leak noted recommending to continue for another 24 hours as there was a noted tiny pneumothorax on the left on imaging. Per nursing staff patient is experiencing a mild rectal prolapse and would recommend keeping the area moist and lubricated as much as possible. Patient continues to have loose stools and is maintained on antibiotics with infectious disease following. 01/06/2025 Patient is seen in follow-up continues in the ICU on mechanical ventilation with an FiO2 of 40% PEEP is being adjusted to 6 per pulmonary director home cleared no plans of weaning at this time recommending initiating small sedation trials to assess mentation. Patient has been weaned off pressor support with medications being adjusted and cardiology following. Patient continues with Thora vent on the left and per director home will be capped with possible removal in the next 24 hours as chest x-ray reveals a tiny pneumothorax that is stable. Patient continues on IV Lasix and will continue as patient is extremely edematous in upper and lower extremities. Patient continues on IV antibiotics in the form of Zosyn and Flagyl and also Diflucan and will continue with infectious disease following. Repeat cultures are pending at this time and patient remains afebr ile. 01/07/2025 Patient is seen in follow-up continues on mechanical ventilation with an FiO2 of 40% and PEEP of 6. Per nursing staff patient did become more hypotensive and tachycardic requiring Levophed to be resumed and currently on hold as blood pressures have improved and will continue to wean as tolerated. Patient continues with significant volume overload and is maintained on IV Lasix daily. Patient continues to have an elevated white count with worsening and also having increased fevers with infectious disease following and will add daptomycin and repeat cultures. Patient remains sedated at this time with no plans of weaning. Pulmonary director home following closely. Thora vent on the left is being removed and will follow-up with repeat chest x-rays. 01/08/2025 Patient seen in follow-up continues to be on mechanical ventilation with no vent changes today maintained on FiO2 of 40% and PEEP of 6. Per nursing staff patient underwent sedation holiday this morning although breathing rapidly with respirations of 30 to 40/min and was placed back on propofol. Discussion of wea rusty propofol and attempting Precedex with sedation holidays. Patient is off pressor support at this time and will monitor closely. White count is elevated at 33 and having low-grade temps maintained on daptomycin and Zosyn with infectious disease following closely. Per nursing staff patient is having multiple episodes of loose stools most likely secondary to tube feeds. C. difficile has been negative and will add as needed Imodium. WBC is 33.42, hemoglobin 8.6, platelets are 280, potassium was 3.3 and replaced and follow-up is 4.4, sodium is 141, BUN is 27 with a creatinine of 1.11. Blood sugars being monitored closely and will adjust accordingly 01/09/2025 Patient is seen in follow-up today currently awake and off sedation still requiring some Precedex as patient is extremely anxious and attempting to pull at tubing. Plan is for possible extubation today and has been tolerating weaning trials. Patient is afebrile continues with occasional low-grade fever maintained on antibiotics infectious disease following closely. White count is above 30 and patient will be started on Eraxis per ID recommendations. Recommend repeat labs. Patient is off pressor support currently and cardiology following closely. Patient continues with LifeVest at this time. Patient continues with loose stools and C. difficile testing has been negative. Continue Imodium as needed. 01/12/2025 Patient is seen in follow-up today currently on stepdown out of the ICU maintained on 2 L via nasal cannula and weaning FiO2 as tolerated. Patient with significant weakness with case management/social work following working on discharge planning to [facility]. Patient continues to report significant amount of pain and medications are being adjusted. Recommend PT/OT therapy daily. Patient is afebrile with no reports of chest pain or palpitations. Patient does continue with LifeVest at this time with cardiology following. 01/13/2025 Patient is seen in follow-up today maintained on Eraxis and discussed with infectious disease as patient will require more days to complete the treatment. Unfortunately ECF will not accept the patient while on this medication due to cost pleat treatment prior to discharging. Patient is afebrile with no reports of chest pain or palpitations. Patient is reporting continued generalized weakness and bodyaches white blood count is trending down and patient is afebri le. Will continue to monitor and follow-up on repeat labs. Case management is following and working with [facility] liaison be submitting for insurance authorization soon. Patient to complete antibiotic therapy to therapy daily. Potassium is low today at 2.9 and will be replaced per protocol. Magnesium is 1.7. 01/14/2025 Patient is seen in follow-up today reports to feeling improved although c ontinues with significant weakness. Patient reports is tolerating diet and attempting to eat more. White count is trending down and patient is maintained on Eraxis with infectious disease following. Recommend to continue to complete the course and will need 3 more days of Eraxis prior to going to [facility]. Plan is for [facility] once patient is stable and has completed Eraxis course. Patient is afebrile denies any worsening shortness of breath and denies chest pain. Patient does continue with LifeVest at this time. Would recommend PT/OT therapy daily and monitoring closely for any signs of aspiration. 01/15/2025 Patient is seen in follow-up today clinically improving and reports is working with physical therapy although significantly weak and will be going to ECF on discharge if insurance authorization is obtained. Authorization being submitted and pending at this time although [facility] unable to accommodate if patient is maintained on Eraxis. Infectious disease following and will discuss further regarding discharge planning. Authorization remains pending and unsure if patient will discharge given the January holiday is coming up and insurance companies are closed on this day. Will likely discharge on Sunday. Encouraged increase activity as tolerated and recommend getting up and sitting in the chair more frequently with all meals. Will follow-up on chest x-ray in the a.m. along with repeat labs. 01/16/2025 Patient is seen in follow-up today with no acute overnight issues noted. White count is trending up and nystatin being added per infectious disease and patient is maintained on Eraxis which will be discontinued likely to complete the course. Patient with significant weakness is planning on going to ECF on discharge and has been accepted by [facility] pending insurance authorization. Given the holiday today there is no case management staff available to verify insurance authorization and no staffing available at [facility] to accommodate the bed. Patient to continue with LifeVest and strongly recommend PT/OT therapy daily. Encouraged oral intake, continuing to monitor electrolytes closely. Replace magnesium potassium today and will add daily supplementation. Follow-up on labs in the a.m. 01/17/2025 Patient evaluated today in follow up on the medical floor. He is resting comfortably in bed. He has been continued on IV eraxis as well as oral a ugmentin. White blood cell count remains elevated at 23.08. He is pending abdominal pelvis CT. Insurance authorization is still pending for dc to [facility]. Review of systems: Constitutional: No reports of fatigue, fever, or chills Cardiovascular: No reports of chest pain or palpitations Respiratory: No reports of worsening shortness of breath or cough GI: No reports of nausea, vomiting, or diarrhea, reports to tolerating diet and eating more : No reports of dysuria or retention Neurovascular: reports of weakness and difficulty ambulating, reports generalized pain although feels somewhat improved PHYSICAL EXAMINATION: GENERAL: The patient is alert and oriented x3, well developed, elderly ap pearing, thin built, cachectic, chronically ill-appearing, pale HEENT: Pupils are round and equally reacting to light. EOMI. no scleral icterus. No conjunctival pallor. Normocephalic, atraumatic. No pharyngeal erythema. No thyromegaly. CARDIOVASCULAR: S1 and S2 muffled PULMONARY: diminished breath sounds bilaterally with no wheezing, scattered coarse rhonchi noted with upper bronchial congestion. Faint crackles noted at the bases ABDOMEN: soft. Nontender on exam. Thin non-distended, normoactive bowel sounds. No palpable organomegaly. MUSCULOSKELETAL: No joint swelling or deformity. EXTREMITIES: No cyanosis, clubbing, or pedal edema. Bilateral upper extremities edematous although significantly improved NEUROLOGICAL: Gross neurological examination did not reveal any focal deficits. Diffusely weak SKIN: No rashes. Extremely pale Assessment: Cardiac arrest, possibly secondary to ventricular tachycardia secondary to multiple electrolyte abnormalities Respiratory arrest with cardiac arrest requiring mechanical ventilation 01/01/2025 likely secondary to V. tach Severe hypokalemia, hypomagnesemia, ongoing, improving after replacement, continue to monitor closely, replace per protocol and daily supplementation being added History of EtOH Candidal pneumonia from the sputum, maintained on Eraxis and to complete the course while here, 1 doses left today, being transition to nystatin per infectious disease Nonischemic cardiomyopathy possible Takotsubo, EF was 20 to 25%, repeat is 30- 35, continued on LifeVest Possible acute colitis as noted on imaging, improved diarrhea, C. difficile was negative likely secondary to tube feeds, resolved Diabetes mellitus, type II, uncontrolled with hyperglycemia History of pancreatitis Tachycardia Anemia, chronic, hemoglobin stable above 8 today Concerns of possible right lower lobe pneumonia on admission, possibly aspiration History of splenic vein thrombosis, was on Eliquis Hepatic encephalopathy Moderate protein calorie malnutrition with a BMI of 17.7 GI prophylaxis DVT prophylaxis Full code Plan: Recommend to continue with current medications and management with multiple consultations following. Continue incentive spirometer use at least 10 times every hour while awake. Patient is maintained on room air currently Patient had respiratory arrest with cardiac arrest on 01/01/2025 and was placed on mechanical ventilation. Pressor supports discontinued and being weaned off mech vent 01/09 infectious disease following as white count remains elevated and maintained on Eraxis. Eraxis will be completed and patient to continue on nystatin swish and swallow per ID recommendations Continues to have multiple loose bowel movements and felt to be from PEG tube feeds; stool c.dif currently pending. Cardiology following and patient is status post catheterization recommending maximizing medical management and case management following and has received LifeVest. Patient does currently have LifeVest on. Patient has transition to oral amiodarone Continue monitoring Accu-Cheks AC and at bedtime and adjust accordingly. Adjust insulins as needed as patient is tolerating more diet and eating and off tube feeds Follow-up on repeat labs and replace electrolytes per protocol. Replace potassium and magnesium per protocol Will discuss with social work regarding discharge planning to ECF, patient will also require insurance authorization which remains pending at this time and given the holiday, patient will likely not discharge until at least 01/19/2025 Due to multiple complex medical issues, overall prognosis is extremely guarded Possible discharge planning early next week The impression and plan of care has been dictated by Bere Browlnee, Nurse Practitioner as directed. Dr. Koby MD I have performed a history and physical examination and medical decision making of this patient, discussed the same with the dictator, and agree with the dictators assessment and plan as written, documented as a scribe. Based on total visit time, I have performed more than 50% of this visit. Objective - Vital Signs Vital signs: Vital Signs Temp 97.4 F L 01/17/25 11:04 Pulse 100 01/17/25 11:04 Resp 16 01/17/25 11:04 BP 122/88 01/17/25 11:04 Pulse Ox 95 01/17/25 11:04 FiO2 21 01/11/25 08:40 Intake & Output 01/16/25 01/17/25 01/17/25 18:59 06:59 18:59 Output Total 698 325 725 Balance -393 -325 725 Output: Urine 145 325 725 Other: Voiding Method Indwelling Catheter Indwelling Catheter Indwelling Catheter ABP, PAP, CO, CI - Last Documented Arterial Blood Pressure 153/76 - Labs CBC & Chem 7: 01/17/25 06:52 01/17/25 06:52 Labs: Abnormal Lab Results - Last 24 Hours (Table) 01/17/25 01/17/25 Range/Units 06:52 06:52 WBC 23.08 H (4.50-10.00) 10*3/uL RBC 3.06 L (4.40-5.60) 10*6/uL Hgb 9.3 L (13.0-17.0) g/dL Hct 30.3 L (39.6-50.0) % MCV 99.0 H (80.0-97.0) fL MCHC 30.7 L (32.0-37.0) g/dL Plt Count 1139 H* (140-440) 10*3/uL Immature Gran # 0.15 H (0.00-0.04) 10*3/uL Neutrophils # 18.04 H (1.80-7.70) 10*3/uL Monocytes # 1.98 H (0.20-1.00) 10*3/uL Basophils # 0.11 H (0.00-0.10) 10*3/uL Carbon Dioxide 20 L (22-30) mmol/L BUN 5 L (9-20) mg/dL Creatinine 0.43 L (0.66-1.25) mg/dL Glucose 103 H (74-99) mg/dL Alkaline Phosphatase 283 H (38-126) U/L C-Reactive Protein 2.3 H (<1.0) mg/dL Total Protein 5.3 L (6.3-8.2) g/dL Albumin 2.4 L (3.5-5.0) g/dL Assessment and Plan Time with Patient: Less than 30
[2025-01-18 08:01] LABS: Basophils # (A) 0.14 10*3/uL (0.00-0.10); Basophils % (A) 0.5 %; Eosinophils # (A) 0.32 10*3/uL (0.04-0.35); Eosinophils % (A) 1.2 %; HCT 29.8 % (39.6-50.0); HGB 9.4 g/dL (13.0-17.0); Immature Platelet Fraction 2.5 % (1.1-6.1); Lymphocytes # (A) 2.59 10*3/uL (0.90-5.00); Lymphocytes % (A) 9.5 %; MCH 31.6 pg (27.0-32.0); MCHC 31.5 g/dL (32.0-37.0); MCV 100.3 fL (80.0-97.0); Monocytes # (A) 2.19 10*3/uL (0.20-1.00); Monocytes % (A) 8.1 %; Neutrophils # (A) 21.67 10*3/uL (1.80-7.70); Neutrophils % (A) 79.9 %; RBC 2.97 10*6/uL (4.40-5.60); RDW 20.2 % (11.5-14.5); WBC 27.14 10*3/uL (4.50-10.00)
[2025-01-18 08:20] LABS: Platelet Count 1191 10*3/uL (140-440)
[2025-01-18 08:28] LABS: African American GFR (CKD) >90 (>60 ml/min/1.73 sqM); Anion Gap 9 mmol/L; Blood Urea Nitrogen 4 mg/dL (9-20); Calcium 8.3 mg/dL (8.4-10.2); Carbon Dioxide 25 mmol/L (22-30); Chloride 104 mmol/L (98-107); Glucose 124 mg/dL (74-99); Magnesium 1.1 mg/dL (1.6-2.3); Non-African American GFR(CKD) >90 (>60 ml/min/1.73 sqM); Potassium 3.2 mmol/L (3.5-5.1); Sodium 138 mmol/L (137-145)
[2025-01-18] MEDS: MAGNESIUM SULFATE-D5W PMX 1 GM in DEXTROSE/WATER 1 100ML.BAG IVPB SCH (10:21)
--- NOTE | 2025-01-18 15:10 | P.PN ---
Subjective Progress Note Date: 01/18/25 This is a pleasant 44-year-old male who was recently admitted after brief cardiac arrest with multiple electrolyte abnormalities being closely monitored. Patient being followed by cardiology and is status post cardiac catheterization recommending maximizing medical management and normal coronary arteries noted. Patient reports to having increasing pain and also generalized weakness although reports will be going home on discharge. Patient did have an elevated white count that had been trending down although is slightly up today with infectious disease following and will repeat CT abdomen for further evaluation. Continue current antibiotics at this time. Case management is following as plan is for LifeVest on discharge. Recommend incentive spirometer as patient is requiring oxygen and may require oxygen on discharge. Will reattempt home oxygen evaluation. Encourage increase activity as tolerated with sitting up out of the bed more frequently. Labs reviewed and white count is 25.52, hemoglobin is 8.8, platelets 446, sodium 137 with a potassium of 3.5, BUN is 5 and creatinine 0.33. Calcium is slightly low at 6.2, total bili is 1.4. 12/31/2024 Patient is seen in follow-up with multiple consultations following. White count was elevated although slightly improving with infectious disease following we will continue current regimen at this time. Patient continues to report shortn ess of breath and generalized pain and continues to require oxygen. Will need home O2 assessment. Patient underwent CT abdomen and will consult general surgery for evaluation. Encouraged increased activity as tolerated with sitting up more frequently in the chair. 01/01/2025 Patient seen and evaluated this morning currently scheduled to undergo HIDA scan per general surgery and patient is currently requesting increase in pain medications as she reports diffuse pain. Pain medications through the IV are currently on hold as patient will be undergoing HIDA scan. Patient's white count is elevated with infectious disease following maintained on Zosyn and will continue. Patient is afebrile with no reports of chest pain or palpitations. Patient is reporting some congestion and occasional shortness of breath. Will order chest x-ray as well. Continue DuoNeb treatments and supplemental oxygen as needed. Patient currently maintained on 5 L. Would recommend PT/OT therapy evaluation as patient has had prolonged cough elevation and appears frail and extremely weak. 01/02/2025 Patient is seen in follow-up was a CODE BLUE on 3 S. and was transferred to ICU intubated for respiratory arrest with cardiac arrest and ROSC received. Patient remains a full code per sister and will continue on mechanical ventilation with an FiO2 of 100% and PEEP of 10 currently. Blood pressures are soft and patient is maintained on pressor support and hemoglobin was noted to be 6.9 this morning and will give 1 unit of PRBC. White count remains elevated at 24.18 and maintained on antibiotics with infectious disease following. Sodium is 141 with a potassium of 3.0, creatinine 0.48, blood sugars elevated, lactic acid 5.1 with a calcium that is low at 5.6, magnesium 1.2. Prognosis remains extremely guarded and CODE STATUS needs to be addressed again. 01/03/2025 Patient is seen in follow-up in the ICU maintained on mechanical ventilation and FiO2 was adjusted per pulmonary bingo usher but FiO2 is currently 60%. Patient maintained on pressor support including Levophed and vasopressin and also receiving Lasix. Blood sugars have been elevated and will adjust insulins accordingly including increasing long-acting. Patient is continued on tube feeds and will continue at this time. Per nursing staff patient did require Chris hugger for some time for hypothermia. Hemoglobin is stable at 8.3 status post 1 unit of PRBC, white count remains elevated at 19.68, sodium is 134 and potassium was again 2.9 with replacement of 3.5 and continued on protocol creatinine is stable at 0.63. Preliminary sputum culture from 12/31/2024 showing yeast species. 01/04/2025 Patient is seen in follow-up continues to be in the ICU on mechanical ventilation with multiple consultations following. FiO2 is 60% and patient is continued on low-dose pressor and support, Levophed has been discontinued and logan todd has been weaned off fentanyl and patient is not on Versed at this time. Patient continues on sedation with propofol and per nursing staff will undergo sedation trials to assess mentation. Patient is continued on antibiotics and will continue with infectious disease following. Blood sugars have been on the lower side and tube feedings have been started and tolerating thus far working on goal and will discontinue long-acting insulin and monitor closely with just Accu-Cheks and sliding scale for now. Prognosis remains extremely guarded and patient remains full code per family at this time. White count remains elevated at 23.15, hemoglobin is stable at 9.0 with no active bleeding noted, platelets are 319, sodium is 134 with a potassium of 3.8, BUN is 5 and creatinine is 0.79. Magnesium is 1.6 and receiving replacement. 01/05/2025 Patient is seen in follow-up today maintained on mechanical ventilation with no plans of weaning today continues on low-dose Levophed and other pressor support being weaned. Per nursing staff patient's blood pressures were extremely low overnight requiring reinitiation of the Levophed which is currently being weaned as tolerated. Patient is maintained on mechanical ventilation with an FiO2 of 40% PEEP is at 10. Patient remains full code and will attempt to contact family to discuss treatment plan and overall prognosis. Patient continues with Pleurx catheter in the left chest wall with no leak noted recommending to continue for another 24 hours as there was a noted tiny pneumothorax on the left on imaging. Per nursing staff patient is experiencing a mild rectal prolapse and would recommend keeping the area moist and lubricated as much as possible. Patient continues to have loose stools and is maintained on antibiotics with infectious disease following. 01/06/2025 Patient is seen in follow-up continues in the ICU on mechanical ventilation with an FiO2 of 40% PEEP is being adjusted to 6 per pulmonary bingo usher cleared no plans of weaning at this time recommending initiating small sedation trials to assess mentation. Patient has been weaned off pressor support with medications being adjusted and cardiology following. Patient continues with Thora vent on the left and per bingo usher will be capped with possible removal in the next 24 hours as chest x-ray reveals a tiny pneumothorax that is stable. Patient continues on IV Lasix and will continue as patient is extremely edematous in upper and lower extremities. Patient continues on IV antibiotics in the form of Zosyn and Flagyl and also Diflucan and will continue with infectious disease following. Repeat cultures are pending at this time and patient remains afebr ile. 01/07/2025 Patient is seen in follow-up continues on mechanical ventilation with an FiO2 of 40% and PEEP of 6. Per nursing staff patient did become more hypotensive and tachycardic requiring Levophed to be resumed and currently on hold as blood pressures have improved and will continue to wean as tolerated. Patient continues with significant volume overload and is maintained on IV Lasix daily. Patient continues to have an elevated white count with worsening and also having increased fevers with infectious disease following and will add daptomycin and repeat cultures. Patient remains sedated at this time with no plans of weaning. Pulmonary bingo usher following closely. Thora vent on the left is being removed and will follow-up with repeat chest x-rays. 01/08/2025 Patient seen in follow-up continues to be on mechanical ventilation with no vent changes today maintained on FiO2 of 40% and PEEP of 6. Per nursing staff patient underwent sedation holiday this morning although breathing rapidly with respirations of 30 to 40/min and was placed back on propofol. Discussion of wea rusty propofol and attempting Precedex with sedation holidays. Patient is off pressor support at this time and will monitor closely. White count is elevated at 33 and having low-grade temps maintained on daptomycin and Zosyn with infectious disease following closely. Per nursing staff patient is having multiple episodes of loose stools most likely secondary to tube feeds. C. difficile has been negative and will add as needed Imodium. WBC is 33.42, hemoglobin 8.6, platelets are 280, potassium was 3.3 and replaced and follow-up is 4.4, sodium is 141, BUN is 27 with a creatinine of 1.11. Blood sugars being monitored closely and will adjust accordingly 01/09/2025 Patient is seen in follow-up today currently awake and off sedation still requiring some Precedex as patient is extremely anxious and attempting to pull at tubing. Plan is for possible extubation today and has been tolerating weaning trials. Patient is afebrile continues with occasional low-grade fever maintained on antibiotics infectious disease following closely. White count is above 30 and patient will be started on Eraxis per ID recommendations. Recommend repeat labs. Patient is off pressor support currently and cardiology following closely. Patient continues with LifeVest at this time. Patient continues with loose stools and C. difficile testing has been negative. Continue Imodium as needed. 01/12/2025 Patient is seen in follow-up today currently on stepdown out of the ICU maintained on 2 L via nasal cannula and weaning FiO2 as tolerated. Patient with significant weakness with case management/social work following working on discharge planning to [facility]. Patient continues to report significant amount of pain and medications are being adjusted. Recommend PT/OT therapy daily. Patient is afebrile with no reports of chest pain or palpitations. Patient does continue with LifeVest at this time with cardiology following. 01/13/2025 Patient is seen in follow-up today maintained on Eraxis and discussed with infectious disease as patient will require more days to complete the treatment. Unfortunately ECF will not accept the patient while on this medication due to cost pleat treatment prior to discharging. Patient is afebrile with no reports of chest pain or palpitations. Patient is reporting continued generalized weakness and bodyaches white blood count is trending down and patient is afebri le. Will continue to monitor and follow-up on repeat labs. Case management is following and working with [facility] liaison be submitting for insurance authorization soon. Patient to complete antibiotic therapy to therapy daily. Potassium is low today at 2.9 and will be replaced per protocol. Magnesium is 1.7. 01/14/2025 Patient is seen in follow-up today reports to feeling improved although c ontinues with significant weakness. Patient reports is tolerating diet and attempting to eat more. White count is trending down and patient is maintained on Eraxis with infectious disease following. Recommend to continue to complete the course and will need 3 more days of Eraxis prior to going to [facility]. Plan is for [facility] once patient is stable and has completed Eraxis course. Patient is afebrile denies any worsening shortness of breath and denies chest pain. Patient does continue with LifeVest at this time. Would recommend PT/OT therapy daily and monitoring closely for any signs of aspiration. 01/15/2025 Patient is seen in follow-up today clinically improving and reports is working with physical therapy although significantly weak and will be going to ECF on discharge if insurance authorization is obtained. Authorization being submitted and pending at this time although [facility] unable to accommodate if patient is maintained on Eraxis. Infectious disease following and will discuss further regarding discharge planning. Authorization remains pending and unsure if patient will discharge given the January holiday is coming up and insurance companies are closed on this day. Will likely discharge on Sunday. Encouraged increase activity as tolerated and recommend getting up and sitting in the chair more frequently with all meals. Will follow-up on chest x-ray in the a.m. along with repeat labs. 01/16/2025 Patient is seen in follow-up today with no acute overnight issues noted. White count is trending up and nystatin being added per infectious disease and patient is maintained on Eraxis which will be discontinued likely to complete the course. Patient with significant weakness is planning on going to ECF on discharge and has been accepted by [facility] pending insurance authorization. Given the holiday today there is no case management staff available to verify insurance authorization and no staffing available at [facility] to accommodate the bed. Patient to continue with LifeVest and strongly recommend PT/OT therapy daily. Encouraged oral intake, continuing to monitor electrolytes closely. Replace magnesium potassium today and will add daily supplementation. Follow-up on labs in the a.m. 01/17/2025 Patient evaluated today in follow up on the medical floor. He is resting comfortably in bed. He has been continued on IV eraxis as well as oral a ugmentin. White blood cell count remains elevated at 23.08. He is pending abdominal pelvis CT. Insurance authorization is still pending for dc to [facility]. 01/18/2025 Patient is evaluated today in follow-up on the cardiac unit. White blood cell count remains elevated at 27.14, hemoglobin 9.4 his platelet count is elevated at 1000 191. Sodium is 138 potassium 3.2, BUN of 4 creatinine 0.53. Magnesium level was low at 1.1. He remains on IV anidulafungin. Augmentin has been discontinued. He states he is having diffuse generalized pain all over. He is on IV dialudid q4h and has been requesting medication every 3 hours. Review of systems: Constitutional: No reports of fatigue, fever, or chills Cardiovascular: No reports of chest pain or palpitations Respiratory: No reports of worsening shortness of breath or cough GI: No reports of nausea, vomiting, or diarrhea, reports to tolerating diet and eating more : No reports of dysuria or retention Neurovascular: reports of weakness and difficulty ambulating, reports generalized pain PHYSICAL EXAMINATION: GENERAL: The patient is alert and oriented x3, well developed, elderly appearing, thin built, cachectic, chronically ill-appearing, pale HEENT: Pupils are round and equally reacting to light. EOMI. no scleral icterus. No conjunctival pallor. Normocephalic, atraumatic. No pharyngeal erythema. No thyromegaly. CARDIOVASCULAR: S1 and S2 muffled PULMONARY: diminished breath sounds bilaterally with no wheezing, scattered coarse rhonchi noted with upper bronchial congestion. Faint crackles noted at the bases ABDOMEN: soft. Nontender on exam. Thin non-distended, normoactive bowel sounds. No palpable organomegaly. MUSCULOSKELETAL: No joint swelling or deformity. EXTREMITIES: No cyanosis, clubbing, or pedal edema. Bilateral upper extremities edematous although significantly improved NEUROLOGICAL: Gross neurological examination did not reveal any focal deficits. Diffusely weak SKIN: No rashes. Extremely pale Assessment: Cardiac arrest, possibly secondary to ventricular tachycardia secondary to multiple electrolyte abnormalities Respiratory arrest with cardiac arrest requiring mechanical ventilation 01/01/2025 likely secondary to V. tach Severe hypokalemia, hypomagnesemia, ongoing, improving after replacement, c ontinue to monitor closely, replace per protocol and daily supplementation being added History of EtOH Candidal pneumonia from the sputum, maintained on Eraxis and to complete the course while here, 1 doses left today, being transition to nystatin per infectious disease Nonischemic cardiomyopathy possible Takotsubo, EF was 20 to 25%, repeat is 30- 35, continued on LifeVest Possible acute colitis as noted on imaging, improved diarrhea, C. difficile was negative likely secondary to tube feeds, resolved Diabetes mellitus, type II, uncontrolled with hyperglycemia History of pancreatitis Tachycardia Anemia, chronic, hemoglobin stable above 8 today Concerns of possible right lower lobe pneumonia on admission, possibly aspiration History of splenic vein thrombosis, was on Eliquis Hepatic encephalopathy Moderate protein calorie malnutrition with a BMI of 17.7 GI prophylaxis DVT prophylaxis Full code Plan: Recommend to continue with current medications and management with multiple consultations following. Continue incentive spirometer use at least 10 times every hour while awake. Patient is maintained on room air currently Patient had respiratory arrest with cardiac arrest on 01/01/2025 and was placed on mechanical ventilation. Pressor supports discontinued and being weaned off mech vent 01/09 infectious disease following as white count remains elevated and maintained on Eraxis. Eraxis will be completed and patient to continue on nystatin swish and swallow per ID recommendations Continues to have multiple loose bowel movements and felt to be from PEG tube feeds; stool c.dif negative Cardiology following and patient is status post catheterization recommending maximizing medical management and case management following and has received LifeVest. Patient does currently have LifeVest on. Patient has transition to oral amiodarone Continue monitoring Accu-Cheks AC and at bedtime and adjust accordingly. Adjust insulins as needed as patient is tolerating more diet and eating and off tube feeds Follow-up on repeat labs and replace electrolytes per protocol. Replace potas sium and magnesium per protocol Check B12 and Folate Will discuss with social work regarding discharge planning to ECF, patient will also require insurance authorization which remains pending at this time and given the holiday, patient will likely not discharge until at least 01/19/2025 Due to multiple complex medical issues, overall prognosis is extremely guarded Possible discharge planning early next week The impression and plan of care has been dictated by Bere Brownlee Nurse Prac titioner as directed. Dr. Koby MD I have performed a history and physical examination and medical decision making of this patient, discussed the same with the dictator, and agree with the dictators assessment and plan as written, documented as a scribe. Based on total visit time, I have performed more than 50% of this visit. Objective - Vital Signs Vital signs: Vital Signs Temp 97.8 F 01/18/25 08:00 Pulse 105 H 01/18/25 08:00 Resp 16 01/18/25 08:00 BP 124/89 01/18/25 08:00 Pulse Ox 93 L 01/18/25 08:00 FiO2 21 01/11/25 08:40 Intake & Output 01/17/25 01/18/25 01/18/25 18:59 06:59 18:59 Intake Total 100 0 Output Total 725 351 Balance -625 -351 0 Intake: IV 100 Anidulafungin 100 mg In 100 Sodium Chloride 0.9% 100 ml @ 84 mls/hr IVPB DAILY @1600 VLAD Rx#:[id number] Oral 0 Output: Urine 725 350 Stool 1 Other: Voiding Method Indwelling Catheter Indwelling Catheter # Bowel Movements 1 ABP, PAP, CO, CI - Last Documented Arterial Blood Pressure 153/76 - Labs CBC & Chem 7: 01/18/25 06:48 01/18/25 06:48 Labs: Abnormal Lab Results - Last 24 Hours (Table) 01/18/25 01/18/25 Range/Units 06:48 06:48 WBC 27.14 H (4.50-10.00) 10*3/uL RBC 2.97 L (4.40-5.60) 10*6/uL Hgb 9.4 L (13.0-17.0) g/dL Hct 29.8 L (39.6-50.0) % MCV 100.3 H (80.0-97.0) fL MCHC 31.5 L (32.0-37.0) g/dL Plt Count 1191 H* (140-440) 10*3/uL Immature Gran # 0.23 H (0.00-0.04) 10*3/uL Neutrophils # 21.67 H (1.80-7.70) 10*3/uL Monocytes # 2.19 H (0.20-1.00) 10*3/uL Basophils # 0.14 H (0.00-0.10) 10*3/uL Potassium 3.2 L (3.5-5.1) mmol/L BUN 4 L (9-20) mg/dL Creatinine 0.53 L (0.66-1.25) mg/dL Glucose 124 H (74-99) mg/dL Calcium 8.3 L (8.4-10.2) mg/dL Magnesium 1.1 L (1.6-2.3) mg/dL Assessment and Plan Time with Patient: Less than 30
--- NOTE | 2025-01-18 15:32 | P.PN ---
Subjective Progress Note Date: 01/18/25 Principal diagnosis: Reason for follow-up is pneumonia/colitis Patient is a 44-year-old male with a past medical history significant for CVA TIA reflux history of recurrent/chronic pancreatitis from alcoholism and hypertension patient was brought into the hospital for lethargy seizure activity did have a cardiac arrest/V. tach requiring shock and subsequent admitted to the hospital.Patient did have a cardiac arrest last night patient is status post resuscitation intubation and transfer the ICU also have a right-sided pneumothorax. On today's visit that is 01/18/2025, Patient is afebrile patient is currently on room air and denies having any shortness of breath, the patient did not have cough or sputum production no nausea vomiting no abdominal pain no further diarrhea reported patient is currently on room air. Patient did have further worsening of the white count is up to 27.14 creatinine 0.53 stool for C. difficile is negative Objective - Vital Signs Vital signs: Vital Signs Temp 97.8 F 01/18/25 08:00 Pulse 99 01/18/25 12:00 Resp 16 01/18/25 12:00 BP 113/78 01/18/25 12:00 Pulse Ox 97 01/18/25 12:00 FiO2 21 01/11/25 08:40 Intake & Output 01/17/25 01/18/25 01/18/25 18:59 06:59 18:59 Intake Total 100 0 Output Total 720 835 525 Balance -998 -792 -249 Intake: IV 100 Anidulafungin 100 mg In 100 Sodium Chloride 0.9% 100 ml @ 84 mls/hr IVPB DAILY @1600 [facility] Rx#:[id number] Oral 0 Output: Urine 725 350 525 Stool 1 Other: Voiding Method Indwelling Catheter Indwelling Catheter Indwelling Catheter # Bowel Movements 1 ABP, PAP, CO, CI - Last Documented Arterial Blood Pressure 153/76 - Exam GENERAL DESCRIPTION: Middle-age male lying in bed in no distress RESPIRATORY SYSTEM: Unlabored breathing , decreased breath sounds at bases HEART: S1 S2 regular rate and rhythm , ABDOMEN: Soft , no tenderness EXTREMITIES: No edema feet - Labs CBC & Chem 7: 01/18/25 06:48 01/18/25 06:48 Labs: Abnormal Lab Results - Last 24 Hours (Table) 01/18/25 01/18/25 Range/Units 06:48 06:48 WBC 27.14 H (4.50-10.00) 10*3/uL RBC 2.97 L (4.40-5.60) 10*6/uL Hgb 9.4 L (13.0-17.0) g/dL Hct 29.8 L (39.6-50.0) % MCV 100.3 H (80.0-97.0) fL MCHC 31.5 L (32.0-37.0) g/dL Plt Count 1191 H* (140-440) 10*3/uL Immature Gran # 0.23 H (0.00-0.04) 10*3/uL Neutrophils # 21.67 H (1.80-7.70) 10*3/uL Monocytes # 2.19 H (0.20-1.00) 10*3/uL Basophils # 0.14 H (0.00-0.10) 10*3/uL Potassium 3.2 L (3.5-5.1) mmol/L BUN 4 L (9-20) mg/dL Creatinine 0.53 L (0.66-1.25) mg/dL Glucose 124 H (74-99) mg/dL Calcium 8.3 L (8.4-10.2) mg/dL Magnesium 1.1 L (1.6-2.3) mg/dL Assessment and Plan (1) Aspiration pneumonitis Current Visit: Yes Status: Acute Code(s): J69.0 - PNEUMONITIS DUE TO INHALATION OF FOOD AND VOMIT SNOMED Code(s): 464692867 (2) Colitis Current Visit: Yes Status: Acute Code(s): K52.9 - NONINFECTIVE GASTROENTERITIS AND COLITIS, UNSPECIFIED SNOMED Code(s): 54955742 (3) Cholecystitis Current Visit: Yes Status: Acute Code(s): K81.9 - CHOLECYSTITIS, UNSPECIFIED SNOMED Code(s): 67819398 (4) Oropharyngeal candidiasis Current Visit: Yes Status: Acute Code(s): B37.0 - CANDIDAL STOMATITIS SNOMED Code(s): 91193252 Plan: 1patient presented to hospital with sepsis in this patient who did have tachycardia hypotension elevated white count meeting criteria for SIRS source likely aspiration pneumonitis as the patient did have intractable nausea vomiting before the patient has been brought to the hospital patient also have abnormality on the abdominal pelvis CT concerning for colitis question of infectious etiology need to be ruled out patient did not recall if he has been on antibiotic in the recent past 2-sputum cultures collected on 12/31/2024 reported as yeast, Angelica glabrata 3-patient CT as well as ultrasound has been suspicious for cholecystitis HIDA scan has been suspicious for chronic cholecystitis General Surgery following the patient 4patient did have a cardiac arrest, patient was resuscitated and intubated in the ICU, patient did have a negative MRSA nasal screen repeat cultures so far negative 5patient did have worsening of the white count for the patient did have a CT abdominal pelvis did show some thickening of the gastric wall, pancreatitis no pseudocyst no colitis patient also have a diarrhea however stool for C. difficile came back negative. 6at this point we will go ahead and repeat blood culture check inflammatory marker discontinue oral vancomycin and start the patient on Zosyn and repeat a CBC with a.m. lab Dictation was produced using [employer] / [employer] dictation software. please excuse any grammatical, word or spelling errors.
[2025-01-18 17:21] LABS: Bilirubin,Urine Negative (Negative); Blood,Urine Small (Negative); Color,Urine Colorless; Glucose,Urine (UA) Negative (Negative); Hyaline Casts,Urine 39 /lpf (0-2); Ketones,Urine Negative (Negative); Leukocyte Esterase,Urine Negative (Negative); Mucus,Urine Rare /hpf; Nitrite,Urine Negative (Negative); PH, Urine 6.5 (5.0-8.0); Protein,Urine Negative (Negative); RBC,Urine 18 /hpf (0-5); Specific Gravity,Urine 1.012 (1.001-1.035); Urobilinogen,Urine <2.0 mg/dL (<2.0); WBC,Urine 3 /hpf (0-5)
[2025-01-18] MEDS: PIPERACILLIN-TAZOBACTAM 3.375 GM in SODIUM CHLORIDE 0.9% 100 ML IVPB SCH (17:23)
[2025-01-19 01:49] LABS: Vitamin B12 732.0 pg/mL (200.0-944.0)
[2025-01-19 07:26] LABS: HCT 29.8 % (39.6-50.0); HGB 9.5 g/dL (13.0-17.0); MCH 31.0 pg (27.0-32.0); MCHC 31.9 g/dL (32.0-37.0); MCV 97.4 fL (80.0-97.0); RBC 3.06 10*6/uL (4.40-5.60); RDW 20.2 % (11.5-14.5); WBC 33.63 10*3/uL (4.50-10.00)
[2025-01-19 07:47] LABS: Platelet Count 1090 10*3/uL (140-440)
[2025-01-19 08:15] LABS: ALT 16 U/L (4-49); AST 35 U/L (17-59); African American GFR (CKD) >90 (>60 ml/min/1.73 sqM); Albumin 2.3 g/dL (3.5-5.0); Alkaline Phosphatase 259 U/L (38-126); Anion Gap 6 mmol/L; Blood Urea Nitrogen 3 mg/dL (9-20); Calcium 8.0 mg/dL (8.4-10.2); Carbon Dioxide 26 mmol/L (22-30); Chloride 103 mmol/L (98-107); Glucose 146 mg/dL (74-99); Magnesium 1.6 mg/dL (1.6-2.3); Non-African American GFR(CKD) >90 (>60 ml/min/1.73 sqM); Potassium 2.9 mmol/L (3.5-5.1); Sodium 135 mmol/L (137-145); Total Protein 5.0 g/dL (6.3-8.2)
[2025-01-19 08:31] LABS: Lymphocytes # (M) 1.01 k/uL (1.0-4.8); Metamyelocytes # (M) 0.34 k/uL (0); Monocytes # (M) 2.35 k/uL (0-1.0); Neutrophils # (M) 30.27 k/uL (1.3-7.7); Neutrophils % (M) 90 %; Total Cells Counted 200
[2025-01-19 08:32] LABS: Anisocytosis (M) Present
[2025-01-19 09:28] VITALS: BP 129/91; PULSE 110; RESP 20; TEMP 98.1
[2025-01-19] MEDS ORDERED: Magnesium Replacement Protocol 1 EACH MISC MISCELLANE PRN (09:32)
[2025-01-19] MEDS ORDERED: Potassium Replacement Protocol 1 EACH MISC MISCELLANE PRN (09:32)
[2025-01-19] MEDS: POTASSIUM CHLORIDE ER 20 MEQ TAB.ER PO SCH (09:41)
[2025-01-19] MEDS ORDERED: MAGNESIUM SULFATE-D5W PMX 1 GM in DEXTROSE/WATER 1 100ML.BAG IVPB SCH (09:45)
[2025-01-19] MEDS ORDERED: RX INFO: IV CONTRAST WAS GIVEN 1 EACH MISC MISCELLANE PRN (10:48)
[2025-01-19] MEDS ORDERED: LINEZOLID 600 MG TAB PO SCH (11:00)
[2025-01-19] MEDS ORDERED: POTASSIUM CHLORIDE ER 20 MEQ TAB.ER PO SCH (21:00)
--- NOTE | 2025-01-20 06:36 | P.DS ---
Providers Date of admission: 12/24/24 10:57 Expected date of discharge: 01/19/25 Attending physician: Baron Groves Consults: 12/24/24 08:32 Consult Physician Routine Consulting Provider: [facility] Consult Reason/Comments: vtach cardiac arrest, electrolyte abn. spoke with doron. Do you want consulting provider notified?: Already Contacted 12/24/24 10:57 Consult Physician Stat Consulting Provider: Yousif Portillo Consult Reason/Comments: cardiac arrest, electrolyte abnormalities. icu care. Do you want consulting provider notified?: Already Contacted 12/24/24 12:15 Consult Physician Routine Consulting Provider: Tim Meza Consult Reason/Comments: sepsis Do you want consulting provider notified?: Yes 01/02/25 04:00 Consult Physician Stat Consulting Provider: Cash Jay Consult Reason/Comments: Cardiac arrest, icu management Do you want consulting provider notified?: Already Contacted [facility] Course: Final diagnosis Cardiac arrest, secondary to ventricular tachycardia due to multiple electrolyte abnormalities Respiratory arrest with cardiac arrest requiring mechanical ventilation 01/01/2025 likely secondary to V. tach Severe hypokalemia, hypomagnesemia, ongoing, being replaced daily History of EtOH Candidal pneumonia from the sputum, maintained on Eraxis and completed course Nonischemic cardiomyopathy possible Takotsubo, EF was 20 to 25%, repeat is 30- 35, continued on LifeVest Possible acute colitis as noted on imaging, improved diarrhea, C. difficile was negative likely secondary to tube feeds, resolved Diabetes mellitus, type II, uncontrolled with hyperglycemia History of pancreatitis Tachycardia Anemia, chronic, hemoglobin stable above 8 today Concerns of possible right lower lobe pneumonia on admission, possibly aspiration History of splenic vein thrombosis, was on Eliquis Hepatic encephalopathy Moderate protein calorie malnutrition with a BMI of 17.7 GI prophylaxis DVT prophylaxis Full code Discharge disposition Patient is deciding to leave AGAINST MEDICAL ADVICE. Risk versus benefits including have been explained patient has signed paperwork. Patient will follow-up with Dr. Gonzáles in the outpatient setting upon discharge. Patient is to follow-up with cardiology and GI as scheduled. Total time taken is greater than 35 minutes. Hospital course This is a 44-year-old male who was recently admitted to the ICU status postcardiac arrest and was noted to have significant multiple electrolyte abnormalities. Patient was also noted to be intoxicated and has history of severe alcohol abuse. Patient has had prolonged hospitalization with multiple consultations following into lung stents in the ICU secondary to respiratory failure with cardiac arrest x 2. Patient was successfully extubated maintained on room air and denied any further shortness of breath. Patient had been maintained on Eraxis for Angelica pneumonia in the sputum with infectious disease following. Patient started developing increasing white count and initiated on antibiotics with repeat blood cultures and workup with again, multiple electrolyte abnormalities including potassium and magnesium. Patient was scheduled for ECF for continued strength and mobility although patient decided he needed to go home and was leaving AGAINST MEDICAL ADVICE. A friend came to pick him up and reported he will be going home. Patient was not able to walk and had to use a wheelchair. Risk versus benefits including were explained once again and patient was persisted on leaving and signed the AMA paperwork with nursing staff. Please refer to other consultation notes for further HPI. Currently no reports of chest pain, shortness of breath, or palpitations. Patient is afebrile. No reports of nausea or vomiting and patient is tolerating diet. Patient is extremely high risk of readmission given ongoing comorbidities and noncompliance. 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 Physical exam: Gen: This is a 44-year-old male who is awake x 3, well-developed, elderly appearing, thin build, cachectic, chronically ill-appearing HEENT: Head is atraumatic, normocephalic. Pupils equal, round. Sclerae is anicteric. NECK: Supple. No JVD. No lymphadenopathy. No thyromegaly. LUNGS: Diminished breath sounds bilaterally otherwise clear to auscultation. No wheezes or rhonchi. No intercostal retractions. HEART: S1, S2 are muffled ABDOMEN: Soft. Thin, cachectic bowel sounds are present. No masses. No tenderness. EXTREMITIES: No pedal edema. No calf tenderness. NEUROLOGICAL: Patient is awake, alert and oriented x3. Cranial nerves 2 through 12 are grossly intact. Diffusely weak Please refer to medication reconciliation sheet for a list of medications. The impression and plan of care has been dictated by Ana Duggan, Nurse Practitioner as directed. Dr. Koby MD I have performed a history and examination and MDM of this patient, discussed the same with the dictator, and agree with the dictator's assessment and plan as written ,documented as a scribe. Based on total visit time, I have performed more than 50% of the visit. Patient Condition at Discharge: Serious Plan - Discharge Summary Discharge Rx Participant: No New Discharge Prescriptions: No Action Lipase/Protease/Amylase [Man Ortega 36,000 Unit Capsule] 3 cap PO TID-W/MEALS Pregabalin [Lyrica] 200 mg PO TID Apixaban [Eliquis] 5 mg PO BID Omeprazole 40 mg PO DAILY Discharge Medication List Omeprazole 40 mg PO DAILY 08/02/23 [History] Lipase/Protease/Amylase [Creromana Ortega 36,000 Unit Capsule] 3 cap PO TID-W/MEALS 09/25/24 [History] Apixaban [Eliquis] 5 mg PO BID 12/24/24 [History] Pregabalin [Lyrica] 200 mg PO TID 12/24/24 [History] Follow up Appointment(s)/Referral(s): Simran Chaidez NPC [REFERRING] - 2 Weeks (Alcohol liver cirrhosis) Terence Rosario MD [STAFF PHYSICIAN] - 2 Weeks Sunny Gonzáles MD [Primary Care Provider] - 1-2 days Discharge Disposition: LEFT AGAINST MEDICAL ADVICE
--- NOTE | 2025-01-23 14:49 | P.PN ---
Subjective Progress Note Date: 01/19/25 Principal diagnosis: Reason for follow-up is pneumonia/colitis Patient is a 44-year-old male with a past medical history significant for CVA TIA reflux history of recurrent/chronic pancreatitis from alcoholism and hypertension patient was brought into the hospital for lethargy seizure activity did have a cardiac arrest/V. tach requiring shock and subsequent admitted to the hospital.Patient did have a cardiac arrest last night patient is status post resuscitation intubation and transfer the ICU also have a right-sided pneumothorax. On today's visit that is 01/19/2025, patient has been afebrile, patient is breathing comfortably and is currently on room air, patient denies having any chest pain and cough, patient denies nausea vomiting or diarrhea and no abdomin al pain. Patient noted to have further worsening of the white count is up to 33.63 creatinine 0.52 Objective - Vital Signs Vital signs: Vital Signs Temp 98.1 F 01/19/25 09:25 Pulse 110 H 01/19/25 09:25 Resp 20 01/19/25 09:25 BP 129/91 01/19/25 09:25 Pulse Ox 95 01/19/25 09:25 FiO2 21 01/11/25 08:40 Intake & Output 01/18/25 01/19/25 01/19/25 18:59 06:59 18:59 Intake Total 120 Output Total 1051 350 Balance -931 -350 Intake: Oral 120 Output: Urine 1050 350 Stool 1 Other: Voiding Method Indwelling Catheter Indwelling Catheter # Bowel Movements 1 ABP, PAP, CO, CI - Last Documented Arterial Blood Pressure 153/76 - Exam GENERAL DESCRIPTION: Middle-age male lying in bed in no distress RESPIRATORY SYSTEM: Unlabored breathing , decreased breath sounds at bases HEART: S1 S2 regular rate and rhythm , ABDOMEN: Soft , no tenderness EXTREMITIES: No edema feet - Labs CBC & Chem 7: 01/19/25 07:04 01/19/25 07:04 Labs: Abnormal Lab Results - Last 24 Hours (Table) 01/18/25 01/18/25 01/18/25 Range/Units 06:48 06:48 15:45 WBC (4.50-10.00) 10*3/uL RBC (4.40-5.60) 10*6/uL Hgb (13.0-17.0) g/dL Hct (39.6-50.0) % MCV (80.0-97.0) fL MCHC (32.0-37.0) g/dL Plt Count (140-440) 10*3/uL Immature Gran # (0.00-0.04) 10*3/uL Neutrophils # (Manual) (1.3-7.7) k/uL Monocytes # (Manual) (0-1.0) k/uL Metamyelocytes # (Man) (0) k/uL Sodium (137-145) mmol/L Potassium 3.2 L (3.5-5.1) mmol/L BUN 4 L (9-20) mg/dL Creatinine 0.53 L (0.66-1.25) mg/dL Glucose 124 H (74-99) mg/dL Calcium 8.3 L (8.4-10.2) mg/dL Magnesium 1.1 L (1.6-2.3) mg/dL Alkaline Phosphatase (38-126) U/L C-Reactive Protein (<1.0) mg/dL Total Protein (6.3-8.2) g/dL Albumin (3.5-5.0) g/dL Folate <2.00 L (4.40-31.00) ng/mL Procalcitonin 0.52 H (0.02-0.50) ng/mL Urine Blood (Negative) Urine RBC (0-5) /hpf Hyaline Casts (0-2) /lpf Urine Mucus (None) /hpf 01/18/25 01/19/25 01/19/25 Range/Units 17:01 07:04 07:04 WBC 33.63 H (4.50-10.00) 10*3/uL RBC 3.06 L (4.40-5.60) 10*6/uL Hgb 9.5 L (13.0-17.0) g/dL Hct 29.8 L (39.6-50.0) % MCV 97.4 H (80.0-97.0) fL MCHC 31.9 L (32.0-37.0) g/dL Plt Count 1090 H* (140-440) 10*3/uL Immature Gran # 0.32 H (0.00-0.04) 10*3/uL Neutrophils # (Manual) 30.27 H (1.3-7.7) k/uL Monocytes # (Manual) 2.35 H (0-1.0) k/uL Metamyelocytes # (Man) 0.34 H (0) k/uL Sodium 135 L (137-145) mmol/L Potassium 2.9 L (3.5-5.1) mmol/L BUN 3 L (9-20) mg/dL Creatinine 0.52 L (0.66-1.25) mg/dL Glucose 146 H (74-99) mg/dL Calcium 8.0 L (8.4-10.2) mg/dL Magnesium (1.6-2.3) mg/dL Alkaline Phosphatase 259 H (38-126) U/L C-Reactive Protein 4.4 H (<1.0) mg/dL Total Protein 5.0 L (6.3-8.2) g/dL Albumin 2.3 L (3.5-5.0) g/dL Folate (4.40-31.00) ng/mL Procalcitonin (0.02-0.50) ng/mL Urine Blood Small H (Negative) Urine RBC 18 H (0-5) /hpf Hyaline Casts 39 H (0-2) /lpf Urine Mucus Rare H (None) /hpf Assessment and Plan (1) Aspiration pneumonitis Status: Acute Code(s): J69.0 - PNEUMONITIS DUE TO INHALATION OF FOOD AND VOMIT SNOMED Code(s): 073848595 (2) Colitis Status: Acute Code(s): K52.9 - NONINFECTIVE GASTROENTERITIS AND COLITIS, UNSPECIFIED SNOMED Code(s): 63615669 (3) Cholecystitis Status: Acute Code(s): K81.9 - CHOLECYSTITIS, UNSPECIFIED SNOMED Code(s): 11045731 (4) Oropharyngeal candidiasis Status: Acute Code(s): B37.0 - CANDIDAL STOMATITIS SNOMED Code(s): 01496807 Plan: 1patient presented to hospital with sepsis in this patient who did have tachycardia hypotension elevated white count meeting criteria for SIRS source likely aspiration pneumonitis as the patient did have intractable nausea vomiting before the patient has been brought to the hospital patient also have abnormality on the abdominal pelvis CT concerning for colitis question of infectious etiology need to be ruled out patient did not recall if he has been on antibiotic in the recent past 2-sputum cultures collected on 12/31/2024 reported as yeast, Angelica glabrata 3-patient CT as well as ultrasound has been suspicious for cholecystitis HIDA scan has been suspicious for chronic cholecystitis General Surgery following the patient 4patient did have a cardiac arrest, patient was resuscitated and intubated in the ICU, patient did have a negative MRSA nasal screen repeat cultures so far negative 5patient did have worsening of the white count for the patient did have a CT abdominal pelvis did show some thickening of the gastric wall, pancreatitis no pseudocyst no colitis patient also have a diarrhea however stool for C. difficile came back negative. 6patient noticed to have further worsening of the white count with a question of possible left middle ear effusion or empyema with effusion seen on the abdominal pelvis CT I did order a CT of the chest with contrast blood culture repeated and the patient was started on oral Zyvox in addition to Zosyn however the patient becomes increasingly agitated and wants to leave AMA this was discussed with the patient and friend of the family member not a good idea however the patient said he will go to [facility] if he gets any worse care discussed detail with B[employer]W FILER for admitting team Dictation was produced using [employer] dictation software. please excuse any grammatical, word or spelling errors. Time with Patient: Greater than 30
--- NOTE | 2025-02-17 19:45 | CDI ---
Documentation Clarification Form Date: 02/17/2025 07:07:57 PM From: Karmen Spaulding Phone: Admit Date: 12/24/2024 10:57:00 AM Patient Name: Juaquin Posada Visit Number: [id number] Discharge Date: 01/19/2025 12:12:00 PM ATTENTION: The Clinical Documentation Specialists (CDI) and [facility] Coding Staff appreciate your assistance in clarifying documentation. Please respond to the clarification below the line at the bottom and electronically sign. The CDI & [facility] Coding staff will review the response and follow-up if needed. Please note: Queries are made part of the Legal Health Record. If you have any questions, please contact the author of this message via ITS. Doctor/Provider: Cash Jay Per Chest x-rays and Dr. Gil 01/01 Note, "Chest Tube Drainage 350 Thora-Vent Left Anterior 350". Additional clarification is requested. History/Risk Factors: 44yo M, PEA d/t VTach, respiratory arrest, severehypokalemia,hypomagnesemia, Hx EtOH, candidal PNA, NICM, acutecolitis, DMII w hyperglycemia, Hx pancreatitis, anemia, tachycardia, Hxsplenic vein thrombosis, hepatic encephalopathy, moderate PCM Clinical Indicators: Minimal left apicalpneumothorax. Left-sidedchest tuberemains in position. Multiple lines and catheters discussed above. Mildleft lower lobe infiltrate. This appears stable from earlier exam Chest x-ray 01/05: Left-sidedchest tubeis present. Smallresidualapicalpneumothoraxis ICU unit was contacted and they willcontactDr. Jay for further recommendation regarding thepneumothorax.Will continue with diuresis and adjust vent settings based blood gas. Will repeat ABG in one hour . Treatment: Chest [id number] Thora-Vent Left Anterior 350 Can you provide a Procedure Note for the Thora-Vent, please? (Template Last Revised: September 2020) MTDD
== END 2025-01-19 12:12 | disposition left against medical advice (07) | DRG 192 ==
LOC: EC 07:01 → 2SICU 10:57 → 3SCARD 12-26 17:13 → 2SICU 01-01 23:02 → 3SCARD 01-10 18:43
PROVIDERS: ADMIT Hospitalist; ATTEND Hospitalist
PROC: 3E033RZ Introduction of Antiarrhythmic into Peripheral Vein, Percutaneous Approach (ICD-10-PCS; 2024-12-24)
PROC: 3E033XZ Introduction of Vasopressor into Peripheral Vein, Percutaneous Approach (ICD-10-PCS; 2024-12-26)
PROC: 4A023N7 Measurement of Cardiac Sampling and Pressure, Left Heart, Percutaneous Approach (ICD-10-PCS; principal; 2024-12-30)
PROC: B2111ZZ Fluoroscopy of Multiple Coronary Arteries using Low Osmolar Contrast (ICD-10-PCS; 2024-12-30)
PROC: 5A12012 Performance of Cardiac Output, Single, Manual (ICD-10-PCS; 2025-01-01)
PROC: 0BH18EZ Insertion of Endotracheal Airway into Trachea, Via Natural or Artificial Opening Endoscopic (ICD-10-PCS; 2025-01-01)
PROC: 5A1955Z Respiratory Ventilation, Greater than 96 Consecutive Hours (ICD-10-PCS; 2025-01-01)
PROC: 3E0G76Z Introduction of Nutritional Substance into Upper GI, Via Natural or Artificial Opening (ICD-10-PCS; 2025-01-02)
PROC: 03HY32Z Insertion of Monitoring Device into Upper Artery, Percutaneous Approach (ICD-10-PCS; 2025-01-02)
PROC: 4A133B1 Monitoring of Arterial Pressure, Peripheral, Percutaneous Approach (ICD-10-PCS; 2025-01-02)
PROC: 4A133J1 Monitoring of Arterial Pulse, Peripheral, Percutaneous Approach (ICD-10-PCS; 2025-01-02)
DX: I47.20 Ventricular tachycardia, unspecified (principal); I46.2 Cardiac arrest due to underlying cardiac condition; B37.7 Candidal sepsis; J69.0 Pneumonitis due to inhalation of food and vomit; B37.1 Pulmonary candidiasis; J96.01 Acute respiratory failure with hypoxia; E44.0 Moderate protein-calorie malnutrition; I50.21 Acute systolic (congestive) heart failure; R64 Cachexia; E87.20 Acidosis, unspecified; K76.82 Hepatic encephalopathy; E72.20 Disorder of urea cycle metabolism, unspecified; D68.4 Acquired coagulation factor deficiency; J93.83 Other pneumothorax; B37.0 Candidal stomatitis; E87.1 Hypo-osmolality and hyponatremia; N17.9 Acute kidney failure, unspecified; K62.3 Rectal prolapse; K86.0 Alcohol-induced chronic pancreatitis; E83.51 Hypocalcemia; I42.8 Other cardiomyopathies; K81.1 Chronic cholecystitis; I42.6 Alcoholic cardiomyopathy; R56.9 Unspecified convulsions; Z91.199 Patient's noncompliance with other medical treatment and regimen due to unspecified reason; I11.0 Hypertensive heart disease with heart failure; K70.30 Alcoholic cirrhosis of liver without ascites; F10.239 Alcohol dependence with withdrawal, unspecified; E11.65 Type 2 diabetes mellitus with hyperglycemia; F10.20 Alcohol dependence, uncomplicated; D64.9 Anemia, unspecified; R00.1 Bradycardia, unspecified; E87.6 Hypokalemia; E83.42 Hypomagnesemia; K52.9 Noninfective gastroenteritis and colitis, unspecified; F17.200 Nicotine dependence, unspecified, uncomplicated; H91.90 Unspecified hearing loss, unspecified ear; E86.9 Volume depletion, unspecified; Y90.0 Blood alcohol level of less than 20 mg/100 ml; Z86.73 Personal history of transient ischemic attack (TIA), and cerebral infarction without residual deficits; Z79.01 Long term (current) use of anticoagulants; Z79.899 Other long term (current) drug therapy; Z86.718 Personal history of other venous thrombosis and embolism; Z68.1 Body mass index [BMI] 19.9 or less, adult; Z87.19 Personal history of other diseases of the digestive system
CPT/HCPCS: 36415; 36600; 70450; 71045; 71275; 74177; 76705; 78226; 80048; 80053; 80202; 80306; 80320; 81001; 82140; 82330; 82533; 82565; 82607; 82652; 82746; 82805; 83036; 83605; 83690; 83735; 83880; 84100; 84132; 84145; 84443; 84484; 85025; 85027; 85610; 85652; 85730; 86140; 86850; 86900; 86901; 86920; 87040; 87045; 87046; 87070; 87086; 87205; 87324; 87390; 87493; 87636; 92950; 93005; 93306; 93308; 93458; 94002; 94003; 94640; 94760; 96365; 96366; 96367; 96368; 96372; 96375; 96376; 99291